=== PATIENT | male | born 1940 | race Caucasian/White ===

== ENCOUNTER → 2016-07-18 | Outpatient (CLI) | payer OTHER ==
[~2016-07-18] MED LIST: ACET-1257 PO; ASPEC325 PO; ASPI81TA28 PO; BND25X PO; CHOL20009 PO; CRD4 PO; DULO60CA44 PO; FAMO20TA12 PO; FRS/40 PO; GABA1CAP4 PO; INSDGI SC; LIDO1PAD2 TOP; LOSA50TA54 PO; METO-596 PO; MONT1TAB5 PO; NITR0.4S UT; NRN600 PO; NVLGIPEN SC; NXM/40 PO; POTA20TA16 PO; ROSU40TA PO; RXC5 PO; SENN8.6T7 PO; SPR25 PO; TRAM-10 PO; VTMD PO; XRL15 PO; ZRX5 PO
[2016-07-18 14:36] LABS: BASO % 0.3 %; BASO ABS # 0.02 K/uL (0-0.2); COMPLETE YES; EOS % 0.8 %; HEMATOCRIT 37.8 % (42-52); IG% 0.1 %; LYMPH % 34.3 %; LYMPH ABS # 2.42 K/uL (1.2-3.4); MEAN CELL VOLUME 92.9 fL (80-100); MEAN CORPUSCULAR HEMOGLOBIN 30.5 pg (25-34); MEAN CORPUSCULAR HGB CONC 32.8 g/dl (32-36); MEAN PLATELET VOLUME 10.5 fL (7.4-10.4); MONO % 13.3 %; NEUT % 51.2 %; PLATELET COUNT 267 K/uL (130-400); RED BLOOD COUNT 4.07 M/uL (4.7-6.1); WHITE BLOOD COUNT 7.06 K/uL (4.8-10.8)
[2016-07-18 14:55] LABS: BLOOD UREA NITROGEN 15 mg/dl (7-18); BUN/CREATININE RATIO 13.3 (10-20); CARBON DIOXIDE 35 mmol/L (21-32); CHLORIDE 98 mmol/L (98-107); GLUCOSE 67 mg/dl (70-99); POTASSIUM 4.3 mmol/L (3.5-5.1); SODIUM 140 mmol/L (136-145)
== END | disposition home or self-care (01) ==
LOC: C.LAB1850 12:41
PROVIDERS: ATTEND Internal Medicine Cardiovascular Disease
DX: I50.32 Chronic diastolic (congestive) heart failure (principal); I25.10 Atherosclerotic heart disease of native coronary artery without angina pectoris

== ENCOUNTER → 2016-11-02 | Outpatient (CLI) | payer OTHER ==
[~2016-11-02] MED LIST changes: -BND25X PO; +DIPH25CA50 PO
--- NOTE | 2016-11-02 08:36 | DIAGNOSTIC IMAGING REPORT ---
RIGHT FOOT 3 VIEWS CLINICAL HISTORY: Right foot weakness. FINDINGS: 3 views of the right foot are obtained. No prior studies are available for comparison at the time of dictation. The skeletal structures are osteopenic. No fracture is seen. Arthritic change with bony sclerosis is seen at the first metatarsophalangeal joint. A small os naviculari is incidentally noted. There are large dorsal and plantar calcaneal enthesophytes. Degenerative spurring is seen along the dorsal aspect of the tarsal bones. Diffuse soft tissue edema is present in the foot, greatest dorsally. IMPRESSION: 1. Soft tissue swelling with no acute bony abnormality identified in the right foot. 2. Osteopenia with arthritic change and large heel spurs as above. Electronically signed by: Hiram Leal M.D. 11/02/2016 8:34 AM Dictated Date/Time: 11/02/2016 8:33 AM
--- NOTE | 2016-11-02 08:38 | DIAGNOSTIC IMAGING REPORT ---
RIGHT ANKLE 3 VIEWS CLINICAL HISTORY: Right ankle weakness. FINDINGS: 3 views of the right ankle are compared to study dated 06/17/2016. The skeletal structures are osteopenic. No fracture is seen. The ankle mortise is intact. Enthesophytes arise from the medial malleolus. There are large dorsal and plantar heel spurs. Degenerative spurring is seen along the anterior tibial plafond and in the dorsal aspect of the tarsal bones. No large joint effusion is identified. Diffuse soft tissue edema is present around the ankle. Atherosclerotic calcification is noted in the regional arteries. IMPRESSION: 1. Diffuse soft tissue edema with no acute bony abnormality seen. 2. Osteopenia, degenerative change, and heel spurs as above. Electronically signed by: Hiram Leal M.D. 11/02/2016 8:36 AM Dictated Date/Time: 11/02/2016 8:35 AM
== END | disposition home or self-care (01) ==
LOC: C.RAD1850 08:16
PROVIDERS: ATTEND Nurse Practitioner
DX: M62.81 Muscle weakness (generalized) (principal); M21.41 Flat foot [pes planus] (acquired), right foot

== ENCOUNTER → 2016-12-09 | Outpatient (CLI) | payer OTHER ==
[2016-12-09 13:11] LABS: ESTIMATED AVERAGE GLUCOSE 240 mg/dl; HA1C FLAG Normal (Normal)
[2016-12-09 14:04] LABS: ALKALINE PHOSPHATASE 67 U/L (45-117); ALT/SGPT 20 U/L (12-78); AST/SGOT 11 U/L (15-37); BLOOD UREA NITROGEN 32 mg/dl (7-18); BUN/CREATININE RATIO 23.1 (10-20); CALCIUM 9.3 mg/dl (8.5-10.1); CARBON DIOXIDE 31 mmol/L (21-32); CHLORIDE 97 mmol/L (98-107); GLUCOSE 396 mg/dl (70-99); POTASSIUM 4.6 mmol/L (3.5-5.1); SODIUM 136 mmol/L (136-145)
[2016-12-09 14:40] LABS: BETA-HYDROXYBUTYRATE 1.71 mg/dL (0.2-2.81)
== END | disposition home or self-care (01) ==
LOC: C.LABBFT 09:33
PROVIDERS: ATTEND Internal Medicine
DX: E11.65 Type 2 diabetes mellitus with hyperglycemia (principal); E11.22 Type 2 diabetes mellitus with diabetic chronic kidney disease; N18.3 Chronic kidney disease, stage 3 (moderate); E55.9 Vitamin D deficiency, unspecified; I50.32 Chronic diastolic (congestive) heart failure

== ENCOUNTER → 2017-02-23 | Outpatient (CLI) | payer OTHER ==
[~2017-02-23] MED LIST changes: +BND25X PO; -DIPH25CA50 PO
[2017-02-23 12:17] LABS: HEMATOCRIT 44.9 % (42-52); MEAN CELL VOLUME 97.4 fL (80-100); MEAN CORPUSCULAR HEMOGLOBIN 32.1 pg (25-34); MEAN PLATELET VOLUME 11.6 fL (7.4-10.4); PLATELET COUNT 192 K/uL (130-400); RED BLOOD COUNT 4.61 M/uL (4.7-6.1); WHITE BLOOD COUNT 11.01 K/uL (4.8-10.8)
[2017-02-23 12:41] LABS: ALT/SGPT 23 U/L (12-78); AST/SGOT 15 U/L (15-37); BLOOD UREA NITROGEN 29 mg/dl (7-18); BUN/CREATININE RATIO 21.9 (10-20); CALCIUM 9.2 mg/dl (8.5-10.1); CARBON DIOXIDE 32 mmol/L (21-32); CHLORIDE 100 mmol/L (98-107); CHOLESTEROL 141 mg/dl (0-200); GLUCOSE 242 mg/dl (70-99); POTASSIUM 4.7 mmol/L (3.5-5.1); SODIUM 136 mmol/L (136-145); TRIGLYCERIDES 472 mg/dl (0-150)
[2017-02-23 12:44] LABS: CHOLESTEROL/HDL RATIO 4.5; HDL CHOLESTEROL 31 mg/dl
== END | disposition home or self-care (01) ==
LOC: C.LABBFT 08:51
PROVIDERS: ATTEND Internal Medicine Cardiovascular Disease
DX: E78.5 Hyperlipidemia, unspecified (principal); I10 Essential (primary) hypertension; I25.10 Atherosclerotic heart disease of native coronary artery without angina pectoris; I50.32 Chronic diastolic (congestive) heart failure

== ENCOUNTER 2017-03-05 12:02 | Emergency (ER) | payer OTHER ==
[~2017-03-05] VITALS: Ht 180.3 cm; Wt 128.7 kg
[~2017-03-05 12:02] MED LIST changes: -ASPI81TA28 PO; -CHOL20009 PO; -CRD4 PO; -NRN600 PO; -SPR25 PO; -TRAM-10 PO; -XRL15 PO; -ZRX5 PO
[2017-03-05 12:05] VITALS: TEMP 36.3; Ht 180.3 cm; Wt 128.7 kg
[2017-03-05] MEDS ORDERED: ZRX5 PO (12:55)
[2017-03-05] MEDS ORDERED: CHOL20009 PO (12:55)
[2017-03-05] MEDS ORDERED: XRL15 PO (12:55)
[2017-03-05] MEDS ORDERED: CRD4 PO (12:55)
[2017-03-05] MEDS ORDERED: ASPI81TA28 PO (12:55)
[2017-03-05] MEDS ORDERED: NRN600 PO (12:55)
[2017-03-05] MEDS ORDERED: INSDGI SC (12:55)
[2017-03-05] MEDS ORDERED: TRAM-10 PO (12:55)
[2017-03-05] MEDS ORDERED: SPR25 PO (12:55)
--- NOTE | 2017-03-05 13:00 | EMERGENCY ROOM VISIT NOTE ---
History Report prepared by Camilo: Chelsey Carrasco Under the Supervision of: Dr. Ryan Perez M.D. 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 The patient's family states that he has had multiple episodes of falls lately and today he tripped and is having severe pain. She reports that the patient had a knee replacement previously and fell onto the same knee today and is having pain there. She notes that he has a history of sciatica and had back surgery in June. The family states that the patient does take Tramadol for his pain but it has not been this bad before and they note that his gait has been affected by his pain. The patient complains of right hip pain that is not new and knee pain. He denies any LOC, headache, and neck pain. The family states that the patient has a walker and a cane but usually uses the cane over the walker. The patient states that he tripped over a board today and fell. He notes that he hit his head but did not lose consciousness and was able to crawl into the house. The patient states that he was on Solu-Medrol for his sciatica and was feeling much better but it has been worse since he stopped taking the medication. He states that he takes Aspirin every day. 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 Review of Systems See HPI for pertinent positives & negatives. A total of 10 systems reviewed and were otherwise negative. Past Medical & Surgical Medical Problems: (1) Bradycardia (2) Diabetes (3) Diabetic foot ulcer (4) Diabetic peripheral neuropathy associated with type 2 diabetes mellitus (5) Dysesthesia (6) Edema (7) Heart disease (8) itactable LBP (9) Kidney disease (10) Loss of sensation (11) Lumbar radiculopathy, acute (12) Lumbar stenosis with neurogenic claudication Surgical Problems: (1) History of heart artery stent (2) Hx of angioplasty (3) Hx of CABG (4) Hx of cholecystectomy Family History Diabetes mellitus FHx: gallbladder disease FHx: heart disease Hypertension Kidney disease Kidney stones Social History Smoking Status: Former Smoker Marital Status: Housing Status: lives with family Occupation Status: retired Current/Historical Medications Scheduled Aspirin (Aspirin Ec), 81 MG PO QAM Cholecalciferol (Vitamin D), 2,000 UNITS PO DAILY Doxazosin Mesylate (Doxazosin Mesylate), 4 MG PO HS Duloxetine Hcl (Cymbalta), 60 MG PO QAM Esomeprazole Magnesium (Nexium), 40 MG PO QAM Furosemide (Lasix), 160 MG PO QAM Gabapentin (Gabapentin), 1,800 MG PO BID Insulin Aspart (Novolog Flexpen), 10 UNITS SC AC Insulin Glargine (Lantus), 120 UNITS SC BID Losartan Potassium (Cozaar), 50 MG PO QAM Metoprolol Tartrate (Lopressor), 50 MG PO BID Montelukast Sodium (Montelukast Sodium), 10 MG PO QAM Nitroglycerin (Nitrostat), 0.4 MG UT PRN Potassium Ext Rel (Klor-Con), 40 MEQ PO BID Rivaroxaban (Xarelto), 15 MG PO DAILY Rosuvastatin Calcium (Crestor), 40 MG PO DAILY Spironolactone (Spironolactone), 25 MG PO BID Scheduled PRN Acetaminophen (Tylenol Extra Strength), 1,000 MG PO Q8H PRN for Pain score 1-3 Diphenhydramine HCl (Diphenhydramine HCl), 25 MG PO Q6H PRN for Allergic rhinitis/insomnia Famotidine (Famotidine), 20 MG PO Q12 PRN for Dyspepsia Lidocaine (Lidocaine), 1 PATCH TOP QAM PRN for Pain Metolazone (Metolazone), 5 MG PO DAILY PRN for Oxycodone HCl (Oxycodone HCl), 5-10 MG PO Q4H PRN for Moderate - severe pain Tramadol (Ultram), 50 MG PO Q8H PRN for Pain Allergies Coded Allergies: NO KNOWN DRUG ALLERGIES (Verified Allergy, Unknown, NKDA, 03/05/17) Physical Exam Vital Signs Date Time Temp Pulse Resp B/P (MAP) Pulse Ox O2 Delivery O2 Flow Rate FiO2 03/05/17 14:20 93 20 121/69 93 Room Air 03/05/17 12:05 36.3 83 20 97/46 95 Room Air Physical Exam GENERAL: Patient is a healthy-appearing well-nourished male, walking with a walker HEAD: Normocephalic atraumatic EYES: Ocular movements intact pupils equal and react to light OROPHARYNX mucous membranes are moist no exudates present no erythema or edema present NECK: Supple no nuchal rigidity, no midline neck tenderness. CHEST: Good equal expansion LUNGS: Clear and equal to auscultation CARDIAC: Normal S1 and S2 ABDOMEN: Soft nontender no guarding BACK: No CVA tenderness, no midline tenderness to the lower spine. EXTREMITIES: No pain upon palpation normal muscle strength in all groups no clubbing cyanosis or edema, good range of motion of left ankle, knee, hip. NEURO: Patient is following commands and answering questions appropriately. Alert and oriented x3 Cranial Nerves 2-12 grossly intact Medical Decision & Procedures ER Provider Diagnostic Interpretation: Radiology results as stated below per my review and radiologist interpretation: PELVIS 1 OR 2 VIEW ROUTINE, LEFT FEMUR 2 VIEWS ROUTINE FINDINGS: PELVIS AND BILATERAL HIPS: The bony pelvis appears intact without acute fracture or dislocation. Moderate degenerative changes involve the bilateral femoral acetabular joints. Vascular calcifications are noted. Image bilateral femora appear intact. Fusion hardware with prior discectomy changes noted at L3-S1. Bones are mildly demineralized. LEFT FEMUR: Moderate femoral acetabular degenerative changes are present. The bones are mildly demineralized. Left total knee joint arthroplasty hardware appears intact. There appears to be a small joint effusion about the knee. 1.8 cm ossification within the region of the distal patellar tendon is noted suggesting a remote patellar tendon injury. No acute fracture or dislocation. IMPRESSION: 1. No acute fracture or dislocation identified involving the pelvis or left femur. 2. Moderate degenerative changes involve the bilateral hips with mild background bone demineralization. 3. Small knee joint effusion. The above report was generated using voice recognition software. It may contain grammatical, syntax or spelling errors. Electronically signed by: Jan Santos M.D. 03/05/2017 1:20 PM Dictated Date/Time: 03/05/2017 1:16 PM L-SPINE MIN 4 VIEWS ROUTINE FINDINGS: Cholecystectomy clips are noted. There are vascular calcifications present. 5 mm linear calcification overlying the inferior pole right kidney suggests nephrolithiasis. There are 5 nonrib-bearing lumbar type vertebral segments. Prior posterior decompression with discectomy and interbody dylan and screw fusion is seen at L4-S1. There is no evidence of hardware complication or malalignment. Multilevel endplate spurring and facet arthropathy is present. Intervertebral disc space narrowing is seen posteriorly at L3-L4. IMPRESSION: 1. No acute fracture or subluxation of the lumbar spine. 2. Prior posterior decompression with discectomy and interbody dylan and screw fusion at L4-S1. 3. Multilevel endplate spurring and facet arthropathy with posterior intervertebral disc space narrowing at L3-L4. 4. Probable right nephrolithiasis. The above report was generated using voice recognition software. It may contain grammatical, syntax or spelling errors. Electronically signed by: Jan Santos M.D. 03/05/2017 1:24 PM Dictated Date/Time: 03/05/2017 1:20 PM ED Course 1215: Past medical records reviewed. The patient was evaluated in room C12. A complete history and physical examination was performed. 1359: I reevaluated and updated the patient on his results. I recommended he follow up with an orthopedic doctor. 1406: Upon reexamination the patient is doing well. I discussed results and treatment plan with the patient. He verbalizes agreement and understanding. The patient is ready for discharge. Medical Decision Differential diagnosis: Etiologies such as fracture, dislocation, neurovascular compromise, compartment syndrome, soft tissue injury, as well as others were entertained. This is a 76-year-old male who presents emergency department complaining of left hip pain since a fall at home on Monday. The patient has been using his walker to get around. He has good range of motion of the hip knee as well as the ankle. The patient was sent for x-rays. He does have a history of spinal fusion. The patient does have a small knee effusion and I believe that this could be the source of his pain. In addition he also has arthritis in the hip. I offered pain medication to the patient however he is refusing. I do feel that the patient should continue use his walker and needs follow-up with orthopedics. Medication Reconcilliation Current Medication List: was personally reviewed by me Blood Pressure Screening Patient's blood pressure: Normal blood pressure Blood pressure disposition: Did not require urgent referral Impression Primary Impression: Hip pain Scribe Attestation The scribe's documentation has been prepared under my direction and personally reviewed by me in its entirety. I confirm that the note above accurately reflects all work, treatment, procedures, and medical decision making performed by me. Departure Information Dispostion Home / Self-Care Referrals Humza Aguilera M.D. (PCP) Forms HOME CARE DOCUMENTATION FORM, IMPORTANT VISIT INFORMATION Patient Instructions ED Effusion Knee, Exercises Leg Knee Hip Pulls, Hip Osteoarthritis, Hip Precautions, My [facility] Additional Instructions Follow up with Dr Fowler's office Take 1000 mg Tylenol every 6 hours Take Tramadol for breakthrough pain You have been examined and treated today on an emergency basis only. This is not a substitute for, or an effort to provide, complete comprehensive medical care. It is impossible to recognize and treat all injuries or illnesses in a single emergency department visit. It is therefore important that you follow up closely with Dr Aguilera. Call as soon as possible for an appointment. Thank you for your time and consideration. I look forward to speaking with you again soon. Please don't hesitate to call us if you have any questions. Problem Qualifiers Primary Impression: Hip pain Laterality: left Qualified Codes: M25.552 - Pain in left hip
--- NOTE | 2017-03-05 13:22 | DIAGNOSTIC IMAGING REPORT ---
PELVIS 1 OR 2 VIEW ROUTINE, LEFT FEMUR 2 VIEWS ROUTINE HISTORY: 76 years-old Male Pt c/o left hip pain acute pain without reported trauma. COMPARISON: Pelvis and right hip radiographs 06/17/2016 TECHNIQUE: AP view of the pelvis with frontal views of the bilateral hips. 5 views of the left femur also obtained. FINDINGS: PELVIS AND BILATERAL HIPS: The bony pelvis appears intact without acute fracture or dislocation. Moderate degenerative changes involve the bilateral femoral acetabular joints. Vascular calcifications are noted. Image bilateral femora appear intact. Fusion hardware with prior discectomy changes noted at L3-S1. Bones are mildly demineralized. LEFT FEMUR: Moderate femoral acetabular degenerative changes are present. The bones are mildly demineralized. Left total knee joint arthroplasty hardware appears intact. There appears to be a small joint effusion about the knee. 1.8 cm ossification within the region of the distal patellar tendon is noted suggesting a remote patellar tendon injury. No acute fracture or dislocation. IMPRESSION: 1. No acute fracture or dislocation identified involving the pelvis or left femur. 2. Moderate degenerative changes involve the bilateral hips with mild background bone demineralization. 3. Small knee joint effusion. The above report was generated using voice recognition software. It may contain grammatical, syntax or spelling errors. Electronically signed by: Jan Santos M.D. 03/05/2017 1:20 PM Dictated Date/Time: 03/05/2017 1:16 PM
--- NOTE | 2017-03-05 13:25 | DIAGNOSTIC IMAGING REPORT ---
L-SPINE MIN 4 VIEWS ROUTINE HISTORY: 76 years-old Male acute left hip pain without reported trauma. COMPARISON: Pelvis radiographs of same day, lumbar spine spot fluoroscopic images 06/22/2016 TECHNIQUE: 5 views of the lumbar spine. FINDINGS: Cholecystectomy clips are noted. There are vascular calcifications present. 5 mm linear calcification overlying the inferior pole right kidney suggests nephrolithiasis. There are 5 nonrib-bearing lumbar type vertebral segments. Prior posterior decompression with discectomy and interbody dylan and screw fusion is seen at L4-S1. There is no evidence of hardware complication or malalignment. Multilevel endplate spurring and facet arthropathy is present. Intervertebral disc space narrowing is seen posteriorly at L3-L4. IMPRESSION: 1. No acute fracture or subluxation of the lumbar spine. 2. Prior posterior decompression with discectomy and interbody dylan and screw fusion at L4-S1. 3. Multilevel endplate spurring and facet arthropathy with posterior intervertebral disc space narrowing at L3-L4. 4. Probable right nephrolithiasis. The above report was generated using voice recognition software. It may contain grammatical, syntax or spelling errors. Electronically signed by: Jan Santos M.D. 03/05/2017 1:24 PM Dictated Date/Time: 03/05/2017 1:20 PM
[2017-03-05 14:20] VITALS: BP 121/69; PULSE 93; O2SAT 93
== END 2017-03-05 14:36 | disposition home or self-care (01) ==
LOC: C.EDB 12:03 → C.EDC 14:36
DX: M25.552 Pain in left hip (principal); W19.XXXA Unspecified fall, initial encounter; E11.9 Type 2 diabetes mellitus without complications; I51.9 Heart disease, unspecified; Z83.3 Family history of diabetes mellitus; Z82.49 Family history of ischemic heart disease and other diseases of the circulatory system; Z87.891 Personal history of nicotine dependence; Z79.82 Long term (current) use of aspirin; Z79.4 Long term (current) use of insulin

== ENCOUNTER → 2017-05-30 | Outpatient (CLI) | payer OTHER ==
[~2017-05-30] MED LIST changes: -ASPEC325 PO; +ASPI81TA28 PO; -BND25X PO; +CHOL20009 PO; +CRD4 PO; +DIPH25CA50 PO; -GABA1CAP4 PO; +NRN600 PO; -SENN8.6T7 PO; +SPR25 PO; +TRAM-10 PO; -VTMD PO; +XRL15 PO; +ZRX5 PO
[2017-05-30 16:53] LABS: BASO % 0.3 %; BASO ABS # 0.04 K/uL (0-0.2); COMPLETE YES; EOS % 1.1 %; HEMATOCRIT 40.4 % (42-52); IG% 0.4 %; LYMPH % 11.7 %; LYMPH ABS # 1.57 K/uL (1.2-3.4); MEAN CELL VOLUME 100.5 fL (80-100); MEAN CORPUSCULAR HEMOGLOBIN 33.6 pg (25-34); MEAN CORPUSCULAR HGB CONC 33.4 g/dl (32-36); MEAN PLATELET VOLUME 12.2 fL (7.4-10.4); NEUT % 74.5 %; PLATELET COUNT 238 K/uL (130-400); RED BLOOD COUNT 4.02 M/uL (4.7-6.1); WHITE BLOOD COUNT 13.45 K/uL (4.8-10.8)
[2017-05-30 17:50] LABS: BLOOD UREA NITROGEN 30 mg/dl (7-18); BUN/CREATININE RATIO 19.8 (10-20); CALCIUM 8.5 mg/dl (8.5-10.1); CARBON DIOXIDE 31 mmol/L (21-32); CHLORIDE 96 mmol/L (98-107); CREATININE 1.51 mg/dl (0.60-1.40); GLUCOSE 410 mg/dl (70-99); PHOSPHORUS 2.8 mg/dl (2.5-4.9); POTASSIUM 4.6 mmol/L (3.5-5.1); PROSTATE SPECIFIC ANTIGEN 0.234 ng/ml (0.000-4.000); SODIUM 134 mmol/L (136-145)
[2017-05-30 18:03] LABS: BETA-HYDROXYBUTYRATE 1.84 mg/dL (0.2-2.81)
[2017-05-31 08:02] LABS: ESTIMATED AVERAGE GLUCOSE 246 mg/dl; HA1C FLAG Normal (Normal)
== END | disposition home or self-care (01) ==
LOC: C.LABBFT 14:57
PROVIDERS: ATTEND Physician Assistant Medical
DX: N18.3 Chronic kidney disease, stage 3 (moderate) (principal); E11.49 Type 2 diabetes mellitus with other diabetic neurological complication; E11.22 Type 2 diabetes mellitus with diabetic chronic kidney disease; E55.9 Vitamin D deficiency, unspecified; Z12.5 Encounter for screening for malignant neoplasm of prostate

== ENCOUNTER → 2017-06-13 | Outpatient (CLI) | payer OTHER ==
--- NOTE | 2017-06-13 13:50 | DIAGNOSTIC IMAGING REPORT ---
KUB CLINICAL HISTORY: Acute on chronic low back pain. FINDINGS: 2 AP supine abdominal radiographs are correlated with abdominal CT dated 05/31/2011. There is a nonobstructed abdominal bowel gas pattern. No abnormal abdominal calcifications are identified. Cholecystectomy clips are seen in the right upper quadrant. The skeletal structures are osteopenic. There are postoperative changes from L4 -S1 spinal fusion. Lumbosacral spondylosis is noted. The bony pelvis is grossly intact. IMPRESSION: Nonobstructed abdominal bowel gas pattern. Electronically signed by: Hiram Leal M.D. 06/13/2017 1:49 PM Dictated Date/Time: 06/13/2017 1:48 PM
== END | disposition home or self-care (01) ==
LOC: C.RAD1850 13:24
PROVIDERS: ATTEND Physician Assistant Medical
DX: I25.10 Atherosclerotic heart disease of native coronary artery without angina pectoris (principal); M54.5 Low back pain

== ENCOUNTER → 2017-06-13 | Outpatient (CLI) | payer OTHER ==
[2017-06-13 17:30] LABS: BASO % 0.2 %; BASO ABS # 0.03 K/uL (0-0.2); COMPLETE YES; EOS % 0.9 %; HEMATOCRIT 40.9 % (42-52); IG% 0.3 %; LYMPH % 13.8 %; LYMPH ABS # 2.04 K/uL (1.2-3.4); MEAN CELL VOLUME 101.2 fL (80-100); MEAN CORPUSCULAR HEMOGLOBIN 32.7 pg (25-34); MEAN CORPUSCULAR HGB CONC 32.3 g/dl (32-36); MONO % 10.6 %; NEUT % 74.2 %; PLATELET COUNT 292 K/uL (130-400); RED BLOOD COUNT 4.04 M/uL (4.7-6.1); WHITE BLOOD COUNT 14.77 K/uL (4.8-10.8)
[2017-06-13 17:45] LABS: BLOOD UREA NITROGEN 20 mg/dl (7-18); BUN/CREATININE RATIO 15.5 (10-20); CALCIUM 9.4 mg/dl (8.5-10.1); CARBON DIOXIDE 34 mmol/L (21-32); CHLORIDE 97 mmol/L (98-107); CREATININE 1.32 mg/dl (0.60-1.40); GLUCOSE 177 mg/dl (70-99); POTASSIUM 4.6 mmol/L (3.5-5.1); SODIUM 133 mmol/L (136-145)
[2017-06-13 17:46] LABS: PHOSPHORUS 2.9 mg/dl (2.5-4.9)
== END | disposition home or self-care (01) ==
LOC: C.LABBFT 12:13
PROVIDERS: ATTEND Physician Assistant Medical
DX: N18.3 Chronic kidney disease, stage 3 (moderate) (principal); R39.9 Unspecified symptoms and signs involving the genitourinary system

== ENCOUNTER → 2017-06-16 | Outpatient (CLI) | payer OTHER ==
--- NOTE | 2017-06-16 14:42 | DIAGNOSTIC IMAGING REPORT ---
CT OF THE ABDOMEN AND PELVIS WITHOUT CONTRAST CLINICAL HISTORY: Right flank pain. COMPARISON STUDY: CT of the abdomen and pelvis May 31, 2011. TECHNIQUE: Axial images of the abdomen and pelvis were obtained without IV contrast. Images were reviewed in the axial, sagittal, and coronal planes. A dose lowering technique was utilized adhering to the principles of ALARA. FINDINGS: Images of the lower chest partially visualize a small to moderate right pleural effusion. In addition, there is a round 4.6 cm airspace opacity within the lateral basilar segment of the right lower lobe. No renal, ureteral or bladder calculi are present. There is no hydronephrosis or hydroureter. Evaluation of the remainder of the abdomen and pelvis is suboptimal on this unenhanced exam. Several water attenuation bilateral renal lesions likely reflect cysts. A few hypointense foci within the liver suggest focal fat. The gallbladder is surgically absent. The spleen, adrenal glands and pancreas are unremarkable. There is no evidence for a bowel obstruction. There is sigmoid diverticulosis without evidence for acute diverticulitis. Note is made of subcutaneous fluid of the anterior abdominal wall, greater on the left. This measures above water attenuation. A locule of gas is noted. No suspicious osseous lesions are present. There are postoperative findings within the spine. There is no lymphadenopathy. There is extensive atherosclerotic plaque of the abdominal aorta. IMPRESSION: 1. 4.6 cm round airspace opacity within the right lower lobe, partially imaged on this exam. This favors pneumonia however a neoplasm could appear similar. A follow-up chest CT in one month to ensure resolution is recommended. Associated small to moderate right pleural effusion. 2. Intermediate attenuation subcutaneous fluid of the anterior abdominal wall, greater on the left with a locule of gas. This could be related to injections. The attenuation raises the possibility of a subcutaneous hematoma. 3. No urinary calculi or hydronephrosis. Electronically signed by: Shane Goins M.D. 06/16/2017 2:40 PM Dictated Date/Time: 06/16/2017 2:21 PM
== END | disposition home or self-care (01) ==
LOC: C.CTS 14:06
PROVIDERS: ATTEND Internal Medicine
DX: R10.9 Unspecified abdominal pain (principal); R93.5 Abnormal findings on diagnostic imaging of other abdominal regions, including retroperitoneum; R91.8 Other nonspecific abnormal finding of lung field

== ENCOUNTER → 2017-06-22 | Outpatient (CLI) | payer OTHER ==
[2017-06-22 17:25] LABS: BASO % 0.2 %; BASO ABS # 0.03 K/uL (0-0.2); COMPLETE YES; EOS % 0.8 %; HEMATOCRIT 43.7 % (42-52); IG% 0.6 %; LYMPH % 18.9 %; LYMPH ABS # 2.51 K/uL (1.2-3.4); MEAN CELL VOLUME 98.4 fL (80-100); MEAN CORPUSCULAR HEMOGLOBIN 32.2 pg (25-34); MEAN CORPUSCULAR HGB CONC 32.7 g/dl (32-36); MEAN PLATELET VOLUME 10.6 fL (7.4-10.4); MONO % 10.6 %; NEUT % 68.9 %; PLATELET COUNT 390 K/uL (130-400); RED BLOOD COUNT 4.44 M/uL (4.7-6.1); WHITE BLOOD COUNT 13.26 K/uL (4.8-10.8)
[2017-06-22 17:34] LABS: BLOOD UREA NITROGEN 48 mg/dl (7-18); BUN/CREATININE RATIO 22.7 (10-20); CALCIUM 9.4 mg/dl (8.5-10.1); CARBON DIOXIDE 36 mmol/L (21-32); CHLORIDE 92 mmol/L (98-107); GLUCOSE 132 mg/dl (70-99); PHOSPHORUS 3.5 mg/dl (2.5-4.9); POTASSIUM 4.1 mmol/L (3.5-5.1); SODIUM 131 mmol/L (136-145)
== END | disposition home or self-care (01) ==
LOC: C.LABBFT 15:18
PROVIDERS: ATTEND Physician Assistant Medical
DX: E87.1 Hypo-osmolality and hyponatremia (principal); D72.829 Elevated white blood cell count, unspecified

== ENCOUNTER → 2017-06-27 | Outpatient (CLI) | payer OTHER ==
[2017-06-27 12:33] LABS: BASO % 0.3 %; BASO ABS # 0.04 K/uL (0-0.2); COMPLETE YES; EOS % 1.5 %; HEMATOCRIT 42.8 % (42-52); IG% 0.4 %; LYMPH % 14.6 %; MEAN CELL VOLUME 98.2 fL (80-100); MEAN CORPUSCULAR HEMOGLOBIN 32.1 pg (25-34); MEAN CORPUSCULAR HGB CONC 32.7 g/dl (32-36); MEAN PLATELET VOLUME 10.7 fL (7.4-10.4); MONO % 12.3 %; NEUT % 70.9 %; PLATELET COUNT 343 K/uL (130-400); RED BLOOD COUNT 4.36 M/uL (4.7-6.1); WHITE BLOOD COUNT 12.29 K/uL (4.8-10.8)
[2017-06-27 12:44] LABS: BLOOD UREA NITROGEN 21 mg/dl (7-18); BUN/CREATININE RATIO 15.6 (10-20); CALCIUM 9.3 mg/dl (8.5-10.1); CARBON DIOXIDE 32 mmol/L (21-32); CHLORIDE 94 mmol/L (98-107); CREATININE 1.33 mg/dl (0.60-1.40); GLUCOSE 130 mg/dl (70-99); POTASSIUM 4.4 mmol/L (3.5-5.1); SODIUM 133 mmol/L (136-145)
== END | disposition home or self-care (01) ==
LOC: C.LABBFT 10:25
PROVIDERS: ATTEND Physician Assistant Medical
DX: N18.3 Chronic kidney disease, stage 3 (moderate) (principal)

== ENCOUNTER → 2017-07-05 | Outpatient (CLI) | payer OTHER ==
[~2017-07-05] MED LIST changes: +POTA-639 PO; -POTA20TA16 PO; +SPIR25TA6 PO; -SPR25 PO
[2017-07-05 12:38] LABS: BASO % 0.3 %; BASO ABS # 0.03 K/uL (0-0.2); EOS % 1.2 %; EOS ABS # 0.12 K/uL (0-0.5); HEMATOCRIT 43.5 % (42-52); HEMOGLOBIN 14.4 g/dL (14.0-18.0); IG# 0.04 K/uL (0.00-0.02); LYMPH % 19.4 %; LYMPH ABS # 1.99 K/uL (1.2-3.4); MEAN CORPUSCULAR HEMOGLOBIN 31.8 pg (25-34); MEAN CORPUSCULAR HGB CONC 33.1 g/dl (32-36); MEAN PLATELET VOLUME 11.1 fL (7.4-10.4); MONO % 10.8 %; MONO ABS # 1.11 K/uL (0.11-0.59); NEUT % 67.9 %; NEUT ABS # 6.96 K/uL (1.4-6.5); PLATELET COUNT 267 K/uL (130-400); RED CELL DISTRIBUTION WIDTH CV 13.6 % (11.5-14.5); RED CELL DISTRIBUTION WIDTH SD 47.5 fL (36.4-46.3); WHITE BLOOD COUNT 10.25 K/uL (4.8-10.8)
[2017-07-05 12:51] LABS: BLOOD UREA NITROGEN 19 mg/dl (7-18); CALCIUM 9.2 mg/dl (8.5-10.1); CARBON DIOXIDE 35 mmol/L (21-32); CREATININE 1.39 mg/dl (0.60-1.40); GLUCOSE 233 mg/dl (70-99); POTASSIUM 4.6 mmol/L (3.5-5.1); SODIUM 132 mmol/L (136-145)
== END | disposition home or self-care (01) ==
LOC: C.LABBFT 11:04
PROVIDERS: ATTEND Physician Assistant Medical
DX: E87.1 Hypo-osmolality and hyponatremia (principal)

== ENCOUNTER → 2017-07-07 | Outpatient (CLI) | payer OTHER ==
--- NOTE | 2017-07-07 12:12 | DIAGNOSTIC IMAGING REPORT ---
RENAL ULTRASOUND HISTORY: N28.9 Acute renal [id number] COMPARISON: Abdomen and pelvis CT 06/16/2017. FINDINGS: Right kidney: 12.8 cm. No hydronephrosis. Normal corticomedullary differentiation and cortical thickness. Multiple cysts with the largest measuring 6 cm. Left kidney: 11.9 cm. No hydronephrosis. Normal corticomedullary differentiation and cortical thickness. Multiple cysts with the largest measuring 2.5 cm. Bladder: Mild bladder wall trabeculation. The bilateral ureteral jets are identified. IMPRESSION: 1. No hydronephrosis. 2. Bilateral renal cysts. Electronically signed by: [place] M.D. 07/07/2017 12:11 PM Dictated Date/Time: 07/07/2017 12:10 PM
== END | disposition home or self-care (01) ==
LOC: C.ULTRBC 11:09
PROVIDERS: ATTEND Physician Assistant Medical
DX: N28.1 Cyst of kidney, acquired (principal)

== ENCOUNTER → 2017-07-13 | Outpatient (CLI) | payer OTHER ==
[2017-07-13 13:39] LABS: OSMOLALITY,URINE 461 mOms/kg (500-800)
[2017-07-13 13:42] LABS: SODIUM RANDOM URINE 69 mEq/L
== END | disposition home or self-care (01) ==
LOC: C.LABBFT 09:40
PROVIDERS: ATTEND Physician Assistant Medical
DX: E87.1 Hypo-osmolality and hyponatremia (principal)

== ENCOUNTER → 2017-09-06 | Outpatient (CLI) | payer OTHER ==
[~2017-09-06] MED LIST changes: -POTA-639 PO; +POTA20TA16 PO; -SPIR25TA6 PO; +SPR25 PO
--- NOTE | 2017-09-06 12:54 | DIAGNOSTIC IMAGING REPORT ---
R SHOULDER MIN 2 VIEWS ROUTINE HISTORY: 76 years-old Male M25.511 Pain in joint of right [id number] acute right shoulder pain COMPARISON: Chest radiograph 05/27/2016 TECHNIQUE: 3 views of the right shoulder FINDINGS: Moderate degenerative changes of the acromioclavicular and glenohumeral joints. There is no acute fracture or dislocation identified. Prior median sternotomy. IMPRESSION: Moderate degenerative changes without acute fracture or dislocation. The above report was generated using voice recognition software. It may contain grammatical, syntax or spelling errors. Electronically signed by: Jan Santos M.D. 09/06/2017 12:52 PM Dictated Date/Time: 09/06/2017 12:50 PM
== END | disposition home or self-care (01) ==
LOC: C.RAD1850 12:31
PROVIDERS: ATTEND Physician Assistant Medical
DX: M25.511 Pain in right shoulder (principal); M89.8X1 Other specified disorders of bone, shoulder

== ENCOUNTER → 2017-10-30 | Outpatient (CLI) | payer OTHER ==
[~2017-10-30] MED LIST changes: +POTA-639 PO; -POTA20TA16 PO
[2017-10-30 12:32] LABS: BASO % 0.4 %; BASO ABS # 0.04 K/uL (0-0.2); EOS ABS # 0.11 K/uL (0-0.5); HEMATOCRIT 45.6 % (42-52); HEMOGLOBIN 15.6 g/dL (14.0-18.0); IG# 0.05 K/uL (0.00-0.02); LYMPH % 17.6 %; LYMPH ABS # 1.98 K/uL (1.2-3.4); MEAN CELL VOLUME 95.6 fL (80-100); MEAN CORPUSCULAR HEMOGLOBIN 32.7 pg (25-34); MEAN CORPUSCULAR HGB CONC 34.2 g/dl (32-36); MEAN PLATELET VOLUME 12.4 fL (7.4-10.4); MONO % 11.8 %; MONO ABS # 1.33 K/uL (0.11-0.59); NEUT % 68.8 %; NEUT ABS # 7.74 K/uL (1.4-6.5); PLATELET COUNT 228 K/uL (130-400); RED CELL DISTRIBUTION WIDTH CV 13.7 % (11.5-14.5); RED CELL DISTRIBUTION WIDTH SD 47.6 fL (36.4-46.3); WHITE BLOOD COUNT 11.25 K/uL (4.8-10.8)
[2017-10-30 12:34] LABS: HEMOGLOBIN A1C 11.3 % (4.5-5.6)
[2017-10-30 13:03] LABS: ALBUMIN 3.6 gm/dl (3.4-5.0); ALKALINE PHOSPHATASE 75 U/L (45-117); ALT/SGPT 33 U/L (12-78); AST/SGOT 30 U/L (15-37); BLOOD UREA NITROGEN 21 mg/dl (7-18); CALCIUM 9.1 mg/dl (8.5-10.1); CARBON DIOXIDE 34 mmol/L (21-32); CREATININE 1.26 mg/dl (0.60-1.40); GLUCOSE 155 mg/dl (70-99); POTASSIUM 4.9 mmol/L (3.5-5.1); SODIUM 136 mmol/L (136-145); TOTAL PROTEIN 7.5 gm/dl (6.4-8.2)
== END | disposition home or self-care (01) ==
LOC: C.LABBFT 09:44
PROVIDERS: ATTEND Nurse Practitioner Adult Health
DX: E11.29 Type 2 diabetes mellitus with other diabetic kidney complication (principal); D72.829 Elevated white blood cell count, unspecified; E11.42 Type 2 diabetes mellitus with diabetic polyneuropathy; E55.9 Vitamin D deficiency, unspecified; R20.0 Anesthesia of skin

== ENCOUNTER → 2017-11-02 | Outpatient (CLI) | payer OTHER ==
[~2017-11-02] MED LIST changes: +GADAVIST IV PRN
--- NOTE | 2017-11-02 16:30 | DIAGNOSTIC IMAGING REPORT ---
LUMBAR SPINE COMBINATION HISTORY: Pain. Radiculopathy. LOWER BACK PAIN TECHNIQUE: Multiplanar multisequence MRI of the lumbar spine was performed both before and after the intravenous administration of contrast. COMPARISON: None. FINDINGS: For the purpose of the report the L5-S1 disc space will be located on axial image 27 of 30. Posterior fusion at L4, L5, and S1. Moderate degenerative disc change L3-S1. Moderate disc desiccation throughout the remaining intervertebral discs. No abnormality of bone marrow signal characteristics. L1-L2: No significant central canal or neural foraminal narrowing. L2-L3: Minimal disc bulge. Minimal impact anterior thecal sac. L3-L4: Moderate multifactorial narrowing of the spinal canal. Hypertrophic change posterior elements. Broad-based bulging disc. Mild narrowing of the neuroforamina bilaterally. L4-L5: Posterior laminectomy and fusion. L5-S1: Posterior laminectomy and fusion. IMPRESSION: 1. Moderate multifactorial narrowing of the spinal canal L3-L4. This includes mild/moderate narrowing of the neuroforamina bilaterally. 2. Posterior laminectomy and fusion L4, L5, and S1. 3. Broad-based bulging disc L2-L3. The above report was generated using voice recognition software. It may contain grammatical, syntax or spelling errors. Electronically signed by: Samuel Atkins M.D. 11/02/2017 4:28 PM Dictated Date/Time: 11/02/2017 4:23 PM
== END | disposition home or self-care (01) ==
LOC: C.MRI 14:58
PROVIDERS: ATTEND Internal Medicine
DX: M51.26 Other intervertebral disc displacement, lumbar region (principal)

== ENCOUNTER 2019-08-04 19:56 | Inpatient (IN) ==
[2019-08-04 20:28] LABS: Hematocrit (blood only) 42.1 % (42-52); Hemoglobin 14.1 g/dL (14.0-18.0); Mean Corpuscular Hemoglobin 33.1 pg (25-34); Mean Corpuscular Hgb Conc 33.5 g/dL (32-36); Mean Corpuscular Volume 98.8 fL (80-100); Mean Platelet Volume 11.5 fL (7.4-10.4); Platelet Count 286 K/uL (130-400); RDW Coefficient of Variation 14.1 % (11.5-14.5); RDW Standard Deviation 50.4 fL (36.4-46.3); Red Blood Count 4.26 M/uL (4.7-6.1); White Blood Count 25.58 K/uL (4.8-10.8)
[2019-08-04 20:31] LABS: Base Excess VBG 4.6 mEq/L; Oxygen Saturation VBG 82.2 %; pH VBG 7.4 (7.36-7.41)
[2019-08-04 20:44] LABS: Albumin Level 3.6 gm/dl (3.4-5.0); BUN Creatinine Ratio 15.4 (10-20); Calcium 9.6 mg/dl (8.5-10.1); Est GFR (African American) 50.6; Est GFR (Non-African American) 43.7; Magnesium 1.5 mg/dl (1.8-2.4); Potassium 3.5 mmol/L (3.5-5.1)
[2019-08-04] MEDS ORDERED: PIPERACILL/TAZOBAC CONSULT ACTIVE PRN (20:44)
[2019-08-04] MEDS ORDERED: VANCOMYCIN HCL 2,750 MG in SODIUM CHLORIDE 0.9% 500 ML IV ONE (20:44)
[2019-08-04] MEDS ORDERED: PIPERACILLIN/TAZOBACTAM 4.5 GM/120 ML BAG IV ONE (20:44)
[2019-08-04] MEDS ORDERED: VANCOMYCIN CONSULT ACTIVE PRN (20:44)
[2019-08-04 20:51] LABS: Albumin Globulin Ratio 0.9 (0.9-2); Bilirubin,Total 0.8 mg/dl (0.2-1); Globulin 4.2 gm/dl (2.5-4.0); Phosphorus 2.8 mg/dl (2.5-4.9); Total Protein 7.8 gm/dl (6.4-8.2); Troponin I 0.046 ng/ml (0-0.045)
[2019-08-04 20:55] LABS: INR 1.2 (0.9-1.1); Partial Thromboplastin Ratio 1.1; Partial Thromboplastin Time 31.1 Seconds (21.0-31.0); Prothrombin Time 11.9 Seconds (9.0-12.0)
[2019-08-04] MEDS ORDERED: MAGNESIUM SULFATE / D5W 1 GM/100 ML BAG IV ONE (20:58)
--- NOTE | 2019-08-04 21:02 | XRay Report ---
XR chest 1V portable HISTORY: 78 years-old Male SEPSIS acute sepsis COMPARISON: Chest radiographs 11/06/2018 TECHNIQUE: Portable AP view of the chest FINDINGS: Cardiomegaly. Prior median sternotomy. Unchanged left subclavian pacer/AICD. Pulmonary vascular conge stion with interstitial coarsening. No pneumothorax. Small pleural effusions with infrahilar and biba silar consolidation. Bones appear grossly intact. IMPRESSION: 1. Cardiomegaly with pulmonary edema. 2. Small pleural effusions with infrahilar and bibasilar consolidative opacities. ACT 112: Negative or not required by law. The above report was generated using voice recognition software. It may contain grammatical, syntax o r spelling errors. Electronically signed by: Jan Santos M.D. 08/04/2019 9:00 PM
[2019-08-04 21:13] LABS: Basophils # (auto) 0.03 K/uL (0-0.2); Basophils % (auto) 0.1 %; Immature Granulocytes % (auto) 0.4 %; Lymphocytes # (auto) 0.62 K/uL (1.2-3.4); Lymphocytes % (auto) 2.4 %; Monocytes # (auto) 1.92 K/uL (0.11-0.59); Monocytes % (auto) 7.5 %; Neutrophils # (auto) 22.91 K/uL (1.4-6.5); Neutrophils % (auto) 89.6 %
[2019-08-04] MEDS ORDERED: METOPROLOL TARTRATE 1 MG/ML VIAL IV PRN (21:20)
--- NOTE | 2019-08-04 21:53 | CT Scan Report ---
CT head/brain wo con CLINICAL HISTORY: 78 years-old Male with AMS. Acutely altered mental status TECHNIQUE: Multiple axial CT images of the head were obtained without contrast. A dose lowering tech nique was utilized adhering to the principles of ALARA. CT DOSE: 810.83 mGy.cm COMPARISON: Head CT 05/15/2018 FINDINGS: No acute intracranial hemorrhage, midline shift, intracranial mass, hydrocephalus, territorial ischem ia or abnormal extra-axial collection. Age-related involutional changes. Mild patchy white matter hyp odensities suggest chronic microvascular ischemic disease. Cerebral vascular calcifications are noted . Senescent calcifications of the bilateral lentiform nuclei. Remote fracture of the right frontal bone extends into the right frontal sinus. No acute calvarial fr acture identified. 4.5 x 1.2 cm left occipital scalp hematoma. Prior bilateral lens replacement. The paranasal sinuses, mastoid air cells, and middle ear cavities are clear. IMPRESSION: 1. No acute intracranial abnormality or calvarial fracture. 2. Left occipital scalp hematoma. ACT 112: Negative or not required by law. The above report was generated using voice recognition software. It may contain grammatical, syntax o r spelling errors. Electronically signed by: Jan Santos M.D. 08/04/2019 9:52 PM
--- NOTE | 2019-08-04 23:23 | History & Physical Report ---
Date of Service August 04, 2019 Assessment & Plan (1) Respiratory failure with hypoxia: Acute respiratory failure with hypoxia/bilateral consolidative pneumonia- Continue vancomycin IV and Zosyn IV begun in the ED. Duonebs every 4 hours while awake and every 2 hours when necessary. Pulmicort Respules 0.5 mg inhaled twice daily Guaifenesin extended release 60 mg p.o. twice daily Sputum Gram stain and culture Taper oxygen as symptoms improve Present on Admission?: Yes (2) Bilateral pneumonia: See above Present on Admission?: Yes (3) Confusion: Secondary to acute respiratory process Present on Admission?: Yes (4) CAD (coronary artery disease) of artery bypass graft: CAD/hypertension/elevated troponin- Troponin 0 0.046 upon admission, likely supply demand type II. Follow serial troponins. Continue metoprolol tartrate, Xarelto, spironolactone, losartan with hold parameters. 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 Patient has had decreased oral intake over the past several days. We will hold on long-acting insulin until it is determined how much oral intake he will have. Present on Admission?: Yes History of Present Illness Chief Complaint: The patient presents to the emergency department with increasing confusion over the past few days and worsening cough and shortness of breath. Primary Care Provider: Humza Aguilera MD The patient is a 78-year-old male with past medical history including CAD, hypertension, diabetic nephropathy,, dyslipidemia, diabetes mellitus with retinopathy, peripheral neuropathy, paroxysmal V. tach, PAD, lumbar disc disease, CKD stage III, permanent atrial fibrillation and intracranial hemorrhage. The patient presents to the emergency department with increasing confusion and difficulty breathing. Clinical examination and imaging studies show a bibasilar consolidative pneumonia. Patient was placed on BiPAP the emergency department, and has improved oxygenation and comfort of breathing at this time. Allergies Allergy/AdvReac Type Severity Reaction Status Date / Time No Known Drug Allergies Allergy Unknown NKDA Verified 08/04/19 20:36 Home Medications Home Medications Medication Instructions Recorded Confirmed Type cholecalciferol (vitamin D3) 1,000 unit PO QAM 05/15/18 08/04/19 History montelukast 10 mg PO PM 05/15/18 08/04/19 History spironolactone 25 mg PO BID 05/15/18 08/04/19 History aspirin 81 mg PO QAM 06/04/18 08/04/19 History losartan 25 mg PO DAILY 12/16/18 08/04/19 History docusate sodium 100 mg capsule 100 mg PO BID PRN 01/09/19 08/04/19 History hydrocortisone-pramoxine 2.5 %-1 % 1 appln IN BID PRN #30 gm 01/09/19 08/04/19 Rx rectal cream lidocaine 5 % topical patch 1 patch TOP DAILY #90 ea 01/09/19 08/04/19 Rx pantoprazole 40 mg tablet,delayed 40 mg PO BID #180 tab 02/18/19 08/04/19 Rx release lancets 28 gauge #25 ea 02/25/19 07/08/19 History nitroglycerin 0.4 mg sublingual 0.4 mg SUBLINGUAL Q5M PRN tab 02/25/19 08/04/19 History tablet Novolog U-100 Insulin aspart 100 See Rx Instructions SQ TID #22 03/04/19 08/04/19 Rx unit/mL subcutaneous solution vial NS MDD 240 units Lantus U-100 Insulin 100 unit/mL 120 units SUBCUT BID 90 Days #22 03/07/19 08/04/19 Rx subcutaneous solution vial NS atorvastatin 80 mg tablet 80 mg PO DAILY #90 tab 03/19/19 08/04/19 Rx gabapentin 300 mg capsule 600 mg PO BID #30 cap 03/19/19 08/04/19 Rx duloxetine 60 mg capsule,delayed 60 mg PO DAILY #90 cap 03/29/19 08/04/19 Rx release metolazone 2.5 mg tablet See Rx Instructions .ROUTE 04/11/19 08/04/19 Rx .COMPLEX #90 tablet furosemide 40 mg tablet 40 mg PO DAILY #90 tab 04/24/19 08/04/19 Rx rivaroxaban 15 mg tablet 15 mg PO DAILY #90 tab 05/31/19 08/04/19 Rx blood sugar diagnostic #350 ea 07/05/19 07/08/19 Rx levetiracetam 500 mg tablet 500 mg PO BID #180 tab 07/05/19 08/04/19 Rx fluorouracil 5 % topical cream 1 appln TOP ONCE 28 Days #40 gm 07/08/19 08/04/19 Rx metoprolol tartrate 50 mg tablet 50 mg PO BID #180 tab 07/15/19 08/04/19 Rx Past Med/Surg History Medical History Actinic keratosis (Acute) Adult situational stress disorder (Acute) Anxiety Atrial fibrillation FOLLOWS Teto/ TERESA C4 cervical fracture (Acute) CAD (coronary artery disease) Carotid artery stenosis, asymptomatic (Acute) Chronic kidney disease, stage III (moderate) (Acute) Depression Diabetes (Chronic) Diabetes mellitus IDDM Enlarged prostate without lower urinary tract symptoms (luts) (Acute) External hemorrhoids (Acute) Gait disturbance (Acute) Gastroparesis (Acute) GERD (gastroesophageal reflux disease) Hearing deficit [place] 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 BRAIN BLEED + SKULL/FACIAL FRACTURES. RESOLVED W/O SURGICAL INTERVENTION. [facility] 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 MOORE Insomnia (Acute) Kidney disease (Chronic) FOLLOWS W/ [facility] NEPHRO Leukocytosis (Acute) Lumbar disc disease (Acute) Obesity (BMI 35.0-39.9 without comorbidity) (Acute) Osteoarthritis PAD (peripheral artery disease) (Acute) Paroxysmal ventricular tachycardia (Acute) Peripheral neuropathy (Acute) Poor historian HISTORY OBTAINED FROM [facility] Rheumatoid nodule of left knee (Acute) Sinus bradycardia (Acute) Situational depression (Acute) Sleep apnea REFUSES CPAP/OXYGEN Subdural hematoma (Acute) Syncope (Acute) 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, with long-term current use of insulin (Acute) Uncontrolled type 2 diabetes mellitus with neurologic complication, with long- term current use of insulin (Acute) 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 History of cataract surgery History of cholecystectomy History of heart artery stent History of knee replacement LEFT Hx of CABG 2004. # VESSELS? FOLLOWS W/ SYSTARI S/P ICD (internal cardiac defibrillator) procedure Family History Daughter Family history of reaction to anesthesia PONV Other No significant family history Social History Preferred Language: Icelandic Communication Ability: Effective Bunch Breaker Required: No Beliefs That Will Affect Care: None marital status: Current Living Situation: Spouse Other Information That Helps Us Care for You: No Feels Safe at Home: Yes Safety Concerns: Feels Safe At This Time Smoking Status: Unknown if ever smoked Hx Alcohol Use: No Hx Substance Use: No Review of Systems Review of Systems: Unobtainable due to cognitive status Physical Exam Physical Exam: The patient is awake, alert, normocephalic and atraumatic, lying in bed and in no acute distress. HEENT--PERRL, EOMI, mucous membranes and oropharynx dry. Neck--supple. No JVD. No bruits. Thyroid normal, trachea midline, no adenopathy. Heart--normal S1 and S2. No murmurs, rubs or gallops. Lungs--decreased breath sounds at the bases bilaterally. Mild respiratory distress, no accessory muscle use. Abdomen--normal bowel sounds and soft. Nontender. Nondistended. Extremities--no cyanosis or clubbing. Right lower extremity with 1+ pretibial pitting edema. Left lower extremity with trace pretibial pitting edema. Family reports this asymmetry is chronic Dermatologic--normal skin turgor, normal color, no abnormal lymph nodes, no rash. Neurologic--cranial nerves II through XII grossly intact. Rheumatologic--normal range of motion. Psychiatric--normal affect. Results & Data Vital Signs (Past 12 Hours) Vital Signs Temp Pulse Pulse Resp BP BP Pulse Ox 08/04/19 23:15 104 H 22 121/93 97 08/04/19 22:41 106 H 18 147/63 H 97 08/04/19 22:14 105 H 18 125/80 96 08/04/19 21:06 120 H 16 121/71 93 08/04/19 20:51 97 08/04/19 20:48 96 08/04/19 20:45 123 H 22 96 08/04/19 20:32 111 H 19 122/91 94 08/04/19 20:30 110 H 16 95 08/04/19 20:15 118 H 22 95 08/04/19 20:10 98.1 F 120 H 18 120/81 95 08/04/19 20:06 116 H 22 94 08/04/19 20:03 122 H 30 H 94 08/04/19 20:02 112 H 25 H 120/81 94 Laboratory Results Laboratory Results WBC 25.58 K/uL (4.8-10.8) H 08/04/19 20:04 RBC 4.26 M/uL (4.7-6.1) L 08/04/19 20:04 Hgb 14.1 g/dL (14.0-18.0) 08/04/19 20:04 Hct 42.1 % (42-52) 08/04/19 20:04 MCV 98.8 fL (80-100) 08/04/19 20:04 MCH 33.1 pg (25-34) 08/04/19 20:04 MCHC 33.5 g/dL (32-36) 08/04/19 20:04 RDW Std Deviation 50.4 fL (36.4-46.3) H 08/04/19 20:04 RDW Coeff of Paulo 14.1 % (11.5-14.5) 08/04/19 20:04 Plt Count 286 K/uL (130-400) 08/04/19 20:04 MPV 11.5 fL (7.4-10.4) H 08/04/19 20:04 Immature Gran % (Auto) 0.4 % 08/04/19 20:04 Neut % (Auto) 89.6 % 08/04/19 20:04 Lymph % (Auto) 2.4 % 08/04/19 20:04 [place] % (Auto) 7.5 % 08/04/19 20:04 Eos % (Auto) 0.0 % 08/04/19 20:04 Baso % (Auto) 0.1 % 08/04/19 20:04 Immature Gran # (Auto) 0.10 K/uL (0.00-0.02) H 08/04/19 20:04 Neut # (Auto) 22.91 K/uL (1.4-6.5) H 08/04/19 20:04 Lymph # (Auto) 0.62 K/uL (1.2-3.4) L 08/04/19 20:04 [place] # (Auto) 1.92 K/uL (0.11-0.59) H 08/04/19 20:04 Eos # (Auto) 0.00 K/uL (0-0.5) 08/04/19 20:04 Baso # (Auto) 0.03 K/uL (0-0.2) 08/04/19 20:04 PT 11.9 Seconds (9.0-12.0) 08/04/19 20: INR 1.2 (0.9-1.1) H 08/04/19 20:04 APTT 31.1 Seconds (21.0-31.0) H 08/04/19 20: PTT Ratio 1.1 08/04/19 20:04 VBG pH 7.40 (7.36-7.41) 08/04/19 20:18 VBG pCO2 51 mmHg (38-50) H 08/04/19 20:18 VBG pO2 49 mmHg 08/04/19 20:18 VBG HCO3 31 mmol/L 08/04/19 20:18 VBG O2 Saturation 82.2 % 08/04/19 20:18 VBG Base Excess 4.6 mEq/L 08/04/19 20:18 Barometric Pressure 726.7 mm/Hg 08/04/19 20:18 Sodium 140 mmol/L (136-145) 08/04/19 20:04 Potassium 3.5 mmol/L (3.5-5.1) 08/04/19 20: Chloride 102 mmol/L (98-107) 08/04/19 20:04 Carbon Dioxide 29 mmol/L (21-32) 08/04/19 20:04 Anion Gap 9.0 (3-11) 08/04/19 20:04 BUN 23 mg/dl (7-18) H 08/04/19 20:04 Creatinine 1.50 mg/dl (0.6-1.4) H 08/04/19 20:04 Est Cr Clr Drug Dosing 55.0 ml/min 08/04/19 20:04 Est GFR ( Amer) 50.6 08/04/19 20:04 Est GFR (Non-Af Amer) 43.7 08/04/19 20:04 BUN/Creatinine Ratio 15.4 (10-20) 08/04/19 20:04 Glucose 254 mg/dl (70-99) H 08/04/19 20:04 Lactate 2.0 mmol/L (0.4-2.0) 08/04/19 22:07 Calcium 9.6 mg/dl (8.5-10.1) 08/04/19 20:04 Phosphorus 2.8 mg/dl (2.5-4.9) 08/04/19 20:04 Magnesium 1.5 mg/dl (1.8-2.4) L 08/04/19 20:04 Total Bilirubin 0.8 mg/dl (0.2-1) 08/04/19 20:04 AST 13 U/L (15-37) L 08/04/19 20:04 ALT 15 U/L (12-78) 08/04/19 20:04 Alkaline Phosphatase 75 U/L (45-117) 08/04/19 20:04 Troponin I 0.046 ng/ml (0-0.045) H* 08/04/19 20:04 Total Protein 7.8 gm/dl (6.4-8.2) 08/04/19 20:04 Albumin 3.6 gm/dl (3.4-5.0) 08/04/19 20:04 Globulin 4.2 gm/dl (2.5-4.0) H 08/04/19 20:04 Albumin/Globulin Ratio 0.9 (0.9-2) 08/04/19 20:04 Procalcitonin 0.25 ng/ml (0-0.5) 08/04/19 20:04 Urine Color Yellow 08/05/19 01:05 Urine Appearance Clear (Clear) 08/05/19 01:05 Urine pH 5.0 (4.5-7.5) 08/05/19 01:05 Ur Specific [place] 1.021 (1.000-1.030) 08/05/19 01:05 Urine Protein 2+ (Negative) H 08/05/19 01:05 Urine Glucose (UA) Trace (Negative) H 08/05/19 01:05 Urine Ketones Negative (Negative) 08/05/19 01:05 Urine Blood 1+ (Negative) H 08/05/19 01:05 Urine Nitrite Negative (Negative) 08/05/19 01:05 Urine Bilirubin Negative (Negative) 08/05/19 01:05 Urine Urobilinogen Negative (Negative) 08/05/19 01:05 Ur Leukocyte Esterase Negative (Negative) 08/05/19 01:05 Urine WBC (Auto) 1-5 /hpf (0-5) 08/05/19 01:05 Urine RBC (Auto) 0-4 /hpf (0-4) 08/05/19 01:05 U Hyaline Cast (Auto) 1-5 /lpf (0-5) 08/05/19 01:05 U Epithel Cells (Auto) 5-10 /lpf (0-5) H 08/05/19 01:05 Urine Bacteria (Auto) Negative (Negative) 08/05/19 01:05 Diagnostic Findings [place], [place] [phone] XRay [facility]: [facility] MR#: [id number]: [address] Acct ID:[id number]: Date: 1940ty Zip: [place] [address] Age: 78Location: ED Sex: M Room/Bed: Att Phy:Diagnosis: ALTERED MENTAL STATUS/CARDIAC ASSESSMENT Sandy Phy: Humza Aguilera MDService Date: 08/04/19 Fam Phy:Interpreting Phy: Kana Santos Admit Phy: Ordering Phy: Everton Dunn M.D. cc: ~ XR chest 1V portable HISTORY: 78 years-old Male SEPSIS acute sepsis COMPARISON: Chest radiographs 11/06/2018 TECHNIQUE: Portable AP view of the chest FINDINGS: Cardiomegaly. Prior median sternotomy. Unchanged left subclavian pacer/AICD. Pulmonary vascular congestion with interstitial coarsening. No pneumothorax. Small pleural effusions with infrahilar and bibasilar consolidation. Bones appear grossly intact. IMPRESSION: 1. Cardiomegaly with pulmonary edema. 2. Small pleural effusions with infrahilar and bibasilar consolidative opacities. ACT 112: Negative or not required by law. The above report was generated using voice recognition software. It may contain grammatical, syntax or spelling errors. Electronically signed by: Jan Santos M.D. 08/04/2019 9:00 PM Dictated: 08/04/192058 Transcribed: 08/04/192058 [place], [place] [phone] CT Scan Report Patient: SANDY VELOZ Date: 08/04/19 MR#: [id number]: [address] Acct ID:[id number]: Date: 1940[facility] Zip: [place] [address] Age: 78Location: ED Sex: M Room/Bed: Att Phy:Diagnosis: ALTERED MENTAL STATUS/CARDIAC ASSESSMENT Sandy Phy: Humza Aguilera MDService Date: 08/04/19 Fam Phy:Interpreting Phy: Kana Santos Admit Phy: Ordering Phy: Everton Dunn M.D. cc: ~ CT head/brain wo con CLINICAL HISTORY: 78 years-old Male with AMS. Acutely altered mental status TECHNIQUE: Multiple axial CT images of the head were obtained without contrast. A dose lowering technique was utilized adhering to the principles of ALARA. CT DOSE: 810.83 mGy.cm COMPARISON: Head CT 05/15/2018 FINDINGS: No acute intracranial hemorrhage, midline shift, intracranial mass, hydrocephalus, territorial ischemia or abnormal extra-axial collection. Age- related involutional changes. Mild patchy white matter hypodensities suggest chronic microvascular ischemic disease. Cerebral vascular calcifications are noted. Senescent calcifications of the bilateral lentiform nuclei. Remote fracture of the right frontal bone extends into the right frontal sinus. No acute calvarial fracture identified. 4.5 x 1.2 cm left occipital scalp hematoma. Prior bilateral lens replacement. The paranasal sinuses, mastoid air cells, and middle ear cavities are clear. IMPRESSION: 1. No acute intracranial abnormality or calvarial fracture. 2. Left occipital scalp hematoma. ACT 112: Negative or not required by law. The above report was generated using voice recognition software. It may contain grammatical, syntax or spelling errors. Electronically signed by: Jan Santos M.D. 08/04/2019 9:52 PM Dictated: 08/04/192146 Transcribed: 08/04/192146 Code Status & VTE Plan Code Status DNR/DNI VTE Prophylaxis Plan VTE Prophylaxis will be ordered: Yes PG Care Time/CCT Total # of Minutes Spent Total Time Spent with Patient: Total time spent is greater than 50% in coordination of care (as documented) at patient's floor/unit and/or counseling patient: Coding Level of Care Code 35909 Initial Inpt Care Lvl 3 Diagnoses Respiratory failure with hypoxia J96.91 Chronicity: unspecified Bilateral pneumonia J18.9 Lung location: unspecified part of lung Pneumonia type: due to unspecified organism Confusion R41.0 CAD (coronary artery disease) of artery bypass graft I25.810 Hypertension I10 Dyslipidemia E78.5 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
[2019-08-05] MEDS ORDERED: GLUCOSE 40% GEL 15 GM TUBE PO PRN ×2 (00:20→14:43)
[2019-08-05] MEDS ORDERED: GLUCAGON FOR INJ 1 MG VIAL SQ PRN ×2 (00:20→14:43)
[2019-08-05] MEDS ORDERED: CARBOHYDRATES FOR HYPOGLYCEMIA PO PRN ×2 (00:20→14:43)
[2019-08-05] MEDS ORDERED: DEXTROSE 50% 50 ML SYRINGE IV PRN ×2 (00:20→14:43)
[2019-08-05] MEDS ORDERED: PIPERACILL/TAZOBAC CONSULT ACTIVE PRN (00:20)
[2019-08-05] MEDS ORDERED: GLUCOSE 10 TABS/TUBE PO PRN ×2 (00:20→14:43)
[2019-08-05] MEDS ORDERED: VANCOMYCIN CONSULT ACTIVE PRN (00:20)
[2019-08-05] MEDS ORDERED: ONDANSETRON INJ 2 MG/ML 2 ML VIAL IV PRN (00:20)
--- NOTE | 2019-08-05 00:58 | Emergency Department Note ---
Entered by Ava Martinez acting as a scribe for History of Present Illness General Chief complaint: Altered Mental Status Stated complaint: shortness of breath Time Seen by Provider: 08/04/19 19:59 Source: patient Mode of arrival: EMS History of Present Illness Onset (ago): day(s) 1 Location: chest Pain Consistency: + constant Quality: + other (shortness of breath) Relieved By: + other (supplemental oxygen) Associated symptoms: + confusion, + chest pain and + shortness of breath; no nausea/vomiting Treatments prior to arrival: none The patient is a 78 year old white male w/ PMHx Afib, hypertension, diabetes, and sleep apnea who presents to the ED w/ CC of altered mental status and shortness of breath beginning earlier today. The patient states that he could not remember what happened, and he believes he fell asleep on the floor. The patient complains of shortness of breath and chest pain today. He states that the chest pain has resolved. He denies nausea and vomiting. The patient is on Xarelto and has a history of diabetes. Home Medications Home Medications Medication Instructions Recorded Confirmed Type cholecalciferol (vitamin D3) 1,000 unit PO QAM 05/15/18 08/04/19 History montelukast 10 mg PO PM 05/15/18 08/04/19 History spironolactone 25 mg PO BID 05/15/18 08/04/19 History aspirin 81 mg PO QAM 06/04/18 08/04/19 History losartan 25 mg PO DAILY 12/16/18 08/04/19 History docusate sodium 100 mg capsule 100 mg PO BID PRN 01/09/19 08/04/19 History hydrocortisone-pramoxine 2.5 %-1 % 1 appln NE BID PRN #30 gm 01/09/19 08/04/19 Rx rectal cream lidocaine 5 % topical patch 1 patch TOP DAILY #90 ea 01/09/19 08/04/19 Rx pantoprazole 40 mg tablet,delayed 40 mg PO BID #180 tab 02/18/19 08/04/19 Rx release lancets 28 gauge #25 ea 02/25/19 07/08/19 History nitroglycerin 0.4 mg sublingual 0.4 mg SUBLINGUAL Q5M PRN tab 02/25/19 08/04/19 History tablet Novolog U-100 Insulin aspart 100 See Rx Instructions SQ TID #22 03/04/19 08/04/19 Rx unit/mL subcutaneous solution vial NS MDD 240 units Lantus U-100 Insulin 100 unit/mL 120 units SUBCUT BID 90 Days #22 03/07/19 08/04/19 Rx subcutaneous solution vial NS atorvastatin 80 mg tablet 80 mg PO DAILY #90 tab 03/19/19 08/04/19 Rx gabapentin 300 mg capsule 600 mg PO BID #30 cap 03/19/19 08/04/19 Rx duloxetine 60 mg capsule,delayed 60 mg PO DAILY #90 cap 03/29/19 08/04/19 Rx release metolazone 2.5 mg tablet See Rx Instructions .ROUTE 04/11/19 08/04/19 Rx .COMPLEX #90 tablet furosemide 40 mg tablet 40 mg PO DAILY #90 tab 04/24/19 08/04/19 Rx rivaroxaban 15 mg tablet 15 mg PO DAILY #90 tab 05/31/19 08/04/19 Rx blood sugar diagnostic #350 ea 07/05/19 07/08/19 Rx levetiracetam 500 mg tablet 500 mg PO BID #180 tab 07/05/19 08/04/19 Rx fluorouracil 5 % topical cream 1 appln TOP ONCE 28 Days #40 gm 07/08/19 08/04/19 Rx metoprolol tartrate 50 mg tablet 50 mg PO BID #180 tab 07/15/19 08/04/19 Rx Allergies Allergy/AdvReac Type Severity Reaction Status Date / Time No Known Drug Allergies Allergy Unknown NKDA Verified 08/04/19 20:36 Past Med/Surg History Medical History Actinic keratosis (Acute) Adult situational stress disorder (Acute) Anxiety Atrial fibrillation FOLLOWS W/ [place] C4 cervical fracture (Acute) CAD (coronary artery disease) Carotid artery stenosis, asymptomatic (Acute) Chronic kidney disease, stage III (moderate) (Acute) Depression Diabetes (Chronic) Diabetes mellitus IDDM Enlarged prostate without lower urinary tract symptoms (luts) (Acute) External hemorrhoids (Acute) Gait disturbance (Acute) Gastroparesis (Acute) GERD (gastroesophageal reflux disease) Hearing deficit [place] 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 BRAIN BLEED + SKULL/FACIAL FRACTURES. RESOLVED W/O SURGICAL INTERVENTION. [facility] ER --> SUMMER BOND BY AIR. 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 MOORE Insomnia (Acute) Kidney disease (Chronic) FOLLOWS W/ [facility] Leukocytosis (Acute) Lumbar disc disease (Acute) Obesity (BMI 35.0-39.9 without comorbidity) (Acute) Osteoarthritis PAD (peripheral artery disease) (Acute) Paroxysmal ventricular tachycardia (Acute) Peripheral neuropathy (Acute) Poor historian HISTORY OBTAINED FROM [facility] - [facility] Rheumatoid nodule of left knee (Acute) Sinus bradycardia (Acute) Situational depression (Acute) Sleep apnea REFUSES CPAP/OXYGEN Subdural hematoma (Acute) Syncope (Acute) 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, with long-term current use of insulin (Acute) Uncontrolled type 2 diabetes mellitus with neurologic complication, with long- term current use of insulin (Acute) 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 History of cataract surgery History of cholecystectomy History of heart artery stent History of knee replacement LEFT Hx of CABG 2004. # VESSELS? FOLLOWS W/ [place] S/P ICD (internal cardiac defibrillator) procedure Family History Daughter Family history of reaction to anesthesia PONV Other No significant family history Social History Preferred Language: Swiss Communication Ability: Effective Park Guide Required: No Beliefs That Will Affect Care: None marital status: Current Living Situation: Spouse Other Information That Helps Us Care for You: No Feels Safe at Home: Yes Safety Concerns: Feels Safe At This Time Smoking Status: Unknown if ever smoked Hx Alcohol Use: No Hx Substance Use: No Review of Systems See HPI for pertinent positives & negatives. and A total of 10 systems reviewed and were otherwise negative Physical Exam Vital Signs Vital Signs - 24 hr 08/04/19 20:02 08/04/19 20:03 08/04/19 20:06 Temperature Temperature Source Pulse Rate 112 H 122 H 116 H Pulse Rate [Apical] Pulse Rate from SpO2 Sensor 128 H 123 H Pulse Rhythm Pulse Rhythm [Apical] Pulse Strength [Apical] Respiratory Rate 25 H 30 H 22 Respiratory Effort / Characteristics Spontaneous Short of Breath Respiratory Depth Normal Respiratory Pattern Tachypnea Blood Pressure 120/81 Blood Pressure [Right Arm] Blood Pressure Mean 86 Blood Pressure Mean [Right Arm] Pulse Oximetry 94 94 94 Oxygen Delivery Method Fraction of Inspired Oxygen 100 SaO2/FiO2 Ratio Sepsis Recent Fever Within 48 Hours Sepsis New/Unexplained Change in Mental Status Sepsis Action Taken by Nursing 08/04/19 20:10 08/04/19 20:15 08/04/19 20:30 Temperature 36.7 C Temperature Source Oral Pulse Rate 120 H 118 H 110 H Pulse Rate [Apical] Pulse Rate from SpO2 Sensor 118 H 113 H Pulse Rhythm Irregular Pulse Rhythm [Apical] Pulse Strength [Apical] Respiratory Rate 18 22 16 Respiratory Effort / Characteristics Non-Labored Spontaneous Respiratory Depth Shallow Respiratory Pattern Regular Blood Pressure 120/81 Blood Pressure [Right Arm] Blood Pressure Mean 94 Blood Pressure Mean [Right Arm] Pulse Oximetry 95 95 95 Oxygen Delivery Method BiPAP Fraction of Inspired Oxygen 100 SaO2/FiO2 Ratio 95 Sepsis Recent Fever Within 48 Hours No Sepsis New/Unexplained Change in Mental Status No Sepsis Action Taken by Nursing No Action Required 08/04/19 20:32 08/04/19 20:45 08/04/19 20:48 Temperature Temperature Source Pulse Rate 111 H 123 H Pulse Rate [Apical] Pulse Rate from SpO2 Sensor 81 121 H Pulse Rhythm Pulse Rhythm [Apical] Pulse Strength [Apical] Respiratory Rate 19 22 Respiratory Effort / Characteristics Respiratory Depth Respiratory Pattern Blood Pressure 122/91 Blood Pressure [Right Arm] Blood Pressure Mean 104 Blood Pressure Mean [Right Arm] Pulse Oximetry 94 96 96 Oxygen Delivery Method BiPAP Fraction of Inspired Oxygen 100 SaO2/FiO2 Ratio 96 Sepsis Recent Fever Within 48 Hours Sepsis New/Unexplained Change in Mental Status Sepsis Action Taken by Nursing 08/04/19 20:51 08/04/19 21:06 08/04/19 22:14 Temperature Temperature Source Pulse Rate Pulse Rate [Apical] 120 H 105 H Pulse Rate from SpO2 Sensor Pulse Rhythm Pulse Rhythm [Apical] Irregular Pulse Strength [Apical] Absent Respiratory Rate 16 18 Respiratory Effort / Characteristics Non-Labored Spontaneous Non-Labored Spontaneous Respiratory Depth Normal Normal Respiratory Pattern Agonal Regular Blood Pressure Blood Pressure [Right Arm] 121/71 125/80 Blood Pressure Mean Blood Pressure Mean [Right Arm] 87 95 Pulse Oximetry 97 93 96 Oxygen Delivery Method BiPAP BiPAP Fraction of Inspired Oxygen 90 100 100 SaO2/FiO2 Ratio 93 96 Sepsis Recent Fever Within 48 Hours Sepsis New/Unexplained Change in Mental Status Sepsis Action Taken by Nursing 08/04/19 22:41 08/04/19 23:15 Temperature Temperature Source Pulse Rate Pulse Rate [Apical] 106 H 104 H Pulse Rate from SpO2 Sensor Pulse Rhythm Pulse Rhythm [Apical] Irregular Pulse Strength [Apical] Respiratory Rate 18 22 Respiratory Effort / Characteristics Respiratory Depth Normal Respiratory Pattern Blood Pressure Blood Pressure [Right Arm] 147/63 H 121/93 Blood Pressure Mean Blood Pressure Mean [Right Arm] 91 102 Pulse Oximetry 97 97 Oxygen Delivery Method BiPAP BiPAP Fraction of Inspired Oxygen 100 SaO2/FiO2 Ratio 97 Sepsis Recent Fever Within 48 Hours Sepsis New/Unexplained Change in Mental Status Sepsis Action Taken by Nursing GENERAL: Easily aroused, answers questions appropriately, follows basic commands., NAD, non-toxic. EYE EXAM: Normal conjunctiva. PERRL, no anisocoria and EOM's grossly intact w/o pain. OROPHARYNX: Moist mucous membranes. Grossly normal dentition. NECK: Supple, no nuchal rigidity, no adenopathy, non-tender. No signs of meningismus. Chest: Midline sternotomy scar, device in left chest. LUNGS: Crackles at the bases. On Bipap. Normal chest wall mechanics. HEART: Device in left chest. Midline sternotomy scar. NSR, no MRG. ABDOMEN: Abdomen soft, non-tender, normo-active bowel sounds, no masses, no rebound or guarding. BACK: No CVA TTP. SKIN: No rashes and no bruising. UPPER EXTREMITIES: Upper extremities are grossly normal. LOWER EXTREMITIES: Right greater than left lower extremity swelling. No calf pain. NEURO EXAM: Easily arousable, follows basic commands and will answer questions appropriately. Course Course 2006: Past medical records reviewed. The patient was evaluated in room B11B. A complete history and physical exam was performed. 2118: The patients heart rate has improved. 2129: I updated the patient's family on his condition and answered their questions. 2035: I spoke to Dr. Turpin, [facility] hospitalist, who agreed to take over care of the patient. The patient and family understand the treatment plan and the patient is agreeable to staying in the hospital. The patient will stay for further evaluation. Administered Medications Discontinued Medications Vancomycin HCl 2,750 mg/ (Sodium Chloride) 555 mls @ 200 mls/hr IV NOW ONE Stop: 08/04/19 23:30 Last Admin: 08/04/19 22:11 Dose: 200 mls/hr Documented by: [id number] Piperacillin Sod/Tazobactam Sod (Zosyn) 4.5 gm in 120 mls @ 240 mls/hr IV NOW ONE Stop: 08/04/19 21:13 Last Infusion: 08/04/19 22:09 Dose: 0 mls/hr Documented by: [id number] Admin: 08/04/19 20:53 Dose: 240 mls/hr Documented by: [id number] Magnesium Sulfate/Dextrose (Magnesium Sulfate / D5w) 1 gm in 100 mls @ 100 mls/hr IV ONE ONE Stop: 08/04/19 21:57 Last Infusion: 08/04/19 22:09 Dose: 0 mls/hr Documented by: [id number] Admin: 08/04/19 21:20 Dose: 100 mls/hr Documented by: [id number] Critical Care Time Critical Care Time: Yes Total Critical Care Time: 70 I have personally spent 70 minutes of critical care time in the direct manage ment of this patient. This includes bedside care, interpretation of diagnostic studies, and testing, discussion with consultants, patient, and family members, and other required patient management activities. This 70 minutes is in excess of all separately billable procedures. Medical Decision Making Differential Diagnosis Differential diagnosis includes: infections, reactive airway disease, pneumonia, pneumothorax, COPD, CHF, cardiac ischemia, pulmonary embolism, musculoskeletal, gastrointestinal, as well as others were entertained. Medical Records Attestation: I reviewed the patient's medical records. Home Medications Current Medication List: was personally reviewed by me Laboratory Data Attestation: I reviewed the patient's lab results. Result diagrams: 08/04/19 20:04 08/04/19 20:04 Lab Results 08/04/19 08/04/19 08/04/19 Range/Units 20:04 20:04 20:04 WBC 25.58 H (4.8-10.8) K/uL RBC 4.26 L (4.7-6.1) M/uL Hgb 14.1 (14.0-18.0) g/dL Hct 42.1 (42-52) % MCV 98.8 (80-100) fL MCH 33.1 (25-34) pg MCHC 33.5 (32-36) g/dL RDW Std Deviation 50.4 H (36.4-46.3) fL RDW Coeff of Paulo 14.1 (11.5-14.5) % Plt Count 286 (130-400) K/uL MPV 11.5 H (7.4-10.4) fL Immature Gran % (Auto) 0.4 % Neut % (Auto) 89.6 % Lymph % (Auto) 2.4 % Frio % (Auto) 7.5 % Eos % (Auto) 0.0 % Baso % (Auto) 0.1 % Immature Gran # (Auto) 0.10 H (0.00-0.02) K/uL Neut # (Auto) 22.91 H (1.4-6.5) K/uL Lymph # (Auto) 0.62 L (1.2-3.4) K/uL Frio # (Auto) 1.92 H (0.11-0.59) K/uL Eos # (Auto) 0.00 (0-0.5) K/uL Baso # (Auto) 0.03 (0-0.2) K/uL PT 11.9 (9.0-12.0) Seconds INR 1.2 H (0.9-1.1) APTT 31.1 H (21.0-31.0) Seconds PTT Ratio 1.1 VBG pH (7.36-7.41) VBG pCO2 (38-50) mmHg VBG pO2 mmHg VBG HCO3 mmol/L VBG O2 Saturation % VBG Base Excess mEq/L Barometric Pressure mm/Hg Sodium 140 (136-145) mmol/L Potassium 3.5 (3.5-5.1) mmol/L Chloride 102 (98-107) mmol/L Carbon Dioxide 29 (21-32) mmol/L Anion Gap 9.0 (3-11) BUN 23 H (7-18) mg/dl Creatinine 1.50 H (0.6-1.4) mg/dl Est Cr Clr Drug Dosing 55.0 ml/min Est GFR ( Amer) 50.6 Est GFR (Non-Af Amer) 43.7 BUN/Creatinine Ratio 15.4 (10-20) Glucose 254 H (70-99) mg/dl Lactate (0.4-2.0) mmol/L Calcium 9.6 (8.5-10.1) mg/dl Phosphorus 2.8 (2.5-4.9) mg/dl Magnesium 1.5 L (1.8-2.4) mg/dl Total Bilirubin 0.8 (0.2-1) mg/dl AST 13 L (15-37) U/L ALT 15 (12-78) U/L Alkaline Phosphatase 75 (45-117) U/L Troponin I 0.046 H* (0-0.045) ng/ml Total Protein 7.8 (6.4-8.2) gm/dl Albumin 3.6 (3.4-5.0) gm/dl Globulin 4.2 H (2.5-4.0) gm/dl Albumin/Globulin Ratio 0.9 (0.9-2) Procalcitonin (0-0.5) ng/ml 08/04/19 08/04/19 08/04/19 Range/Units 20:04 20:18 20:18 WBC (4.8-10.8) K/uL RBC (4.7-6.1) M/uL Hgb (14.0-18.0) g/dL Hct (42-52) % MCV (80-100) fL MCH (25-34) pg MCHC (32-36) g/dL RDW Std Deviation (36.4-46.3) fL RDW Coeff of Paulo (11.5-14.5) % Plt Count (130-400) K/uL MPV (7.4-10.4) fL Immature Gran % (Auto) % Neut % (Auto) % Lymph % (Auto) % Frio % (Auto) % Eos % (Auto) % Baso % (Auto) % Immature Gran # (Auto) (0.00-0.02) K/uL Neut # (Auto) (1.4-6.5) K/uL Lymph # (Auto) (1.2-3.4) K/uL Frio # (Auto) (0.11-0.59) K/uL Eos # (Auto) (0-0.5) K/uL Baso # (Auto) (0-0.2) K/uL PT (9.0-12.0) Seconds INR (0.9-1.1) APTT (21.0-31.0) Seconds PTT Ratio VBG pH 7.40 (7.36-7.41) VBG pCO2 51 H (38-50) mmHg VBG pO2 49 mmHg VBG HCO3 31 mmol/L VBG O2 Saturation 82.2 % VBG Base Excess 4.6 mEq/L Barometric Pressure 726.7 mm/Hg Sodium (136-145) mmol/L Potassium (3.5-5.1) mmol/L Chloride (98-107) mmol/L Carbon Dioxide (21-32) mmol/L Anion Gap (3-11) BUN (7-18) mg/dl Creatinine (0.6-1.4) mg/dl Est Cr Clr Drug Dosing ml/min Est GFR ( Amer) Est GFR (Non-Af Amer) BUN/Creatinine Ratio (10-20) Glucose (70-99) mg/dl Lactate 2.8 H* (0.4-2.0) mmol/L Calcium (8.5-10.1) mg/dl Phosphorus (2.5-4.9) mg/dl Magnesium (1.8-2.4) mg/dl Total Bilirubin (0.2-1) mg/dl AST (15-37) U/L ALT (12-78) U/L Alkaline Phosphatase (45-117) U/L Troponin I (0-0.045) ng/ml Total Protein (6.4-8.2) gm/dl Albumin (3.4-5.0) gm/dl Globulin (2.5-4.0) gm/dl Albumin/Globulin Ratio (0.9-2) Procalcitonin 0.25 (0-0.5) ng/ml 08/04/19 Range/Units 22:07 WBC (4.8-10.8) K/uL RBC (4.7-6.1) M/uL Hgb (14.0-18.0) g/dL Hct (42-52) % MCV (80-100) fL MCH (25-34) pg MCHC (32-36) g/dL RDW Std Deviation (36.4-46.3) fL RDW Coeff of Paulo (11.5-14.5) % Plt Count (130-400) K/uL MPV (7.4-10.4) fL Immature Gran % (Auto) % Neut % (Auto) % Lymph % (Auto) % Frio % (Auto) % Eos % (Auto) % Baso % (Auto) % Immature Gran # (Auto) (0.00-0.02) K/uL Neut # (Auto) (1.4-6.5) K/uL Lymph # (Auto) (1.2-3.4) K/uL Frio # (Auto) (0.11-0.59) K/uL Eos # (Auto) (0-0.5) K/uL Baso # (Auto) (0-0.2) K/uL PT (9.0-12.0) Seconds INR (0.9-1.1) APTT (21.0-31.0) Seconds PTT Ratio VBG pH (7.36-7.41) VBG pCO2 (38-50) mmHg VBG pO2 mmHg VBG HCO3 mmol/L VBG O2 Saturation % VBG Base Excess mEq/L Barometric Pressure mm/Hg Sodium (136-145) mmol/L Potassium (3.5-5.1) mmol/L Chloride (98-107) mmol/L Carbon Dioxide (21-32) mmol/L Anion Gap (3-11) BUN (7-18) mg/dl Creatinine (0.6-1.4) mg/dl Est Cr Clr Drug Dosing ml/min Est GFR ( Amer) Est GFR (Non-Af Amer) BUN/Creatinine Ratio (10-20) Glucose (70-99) mg/dl Lactate 2.0 (0.4-2.0) mmol/L Calcium (8.5-10.1) mg/dl Phosphorus (2.5-4.9) mg/dl Magnesium (1.8-2.4) mg/dl Total Bilirubin (0.2-1) mg/dl AST (15-37) U/L ALT (12-78) U/L Alkaline Phosphatase (45-117) U/L Troponin I (0-0.045) ng/ml Total Protein (6.4-8.2) gm/dl Albumin (3.4-5.0) gm/dl Globulin (2.5-4.0) gm/dl Albumin/Globulin Ratio (0.9-2) Procalcitonin (0-0.5) ng/ml Imaging Data Radiologist's Impression: Radiology results as stated below per my review and the radiologist's interpretation: XR chest 1V portable HISTORY: 78 years-old Male SEPSIS acute sepsis COMPARISON: Chest radiographs 11/06/2018 TECHNIQUE: Portable AP view of the chest FINDINGS: Cardiomegaly. Prior median sternotomy. Unchanged left subclavian pacer/AICD. Pulmonary vascular congestion with interstitial coarsening. No pneumothorax. Small pleural effusions with infrahilar and bibasilar consolidation. Bones appear grossly intact. IMPRESSION: 1. Cardiomegaly with pulmonary edema. 2. Small pleural effusions with infrahilar and bibasilar consolidative opacities. ACT 112: Negative or not required by law. The above report was generated using voice recognition software. It may contain grammatical, syntax or spelling errors. Electronically signed by: Jan Santos M.D. 08/04/2019 9:[address] head/brain wo con CLINICAL HISTORY: 78 years-old Male with AMS. Acutely altered mental status TECHNIQUE: Multiple axial CT images of the head were obtained without contrast. A dose lowering technique was utilized adhering to the principles of ALARA. CT DOSE: 810.83 mGy.cm COMPARISON: Head CT 05/15/2018 FINDINGS: No acute intracranial hemorrhage, midline shift, intracranial mass, hydrocephalus, territorial ischemia or abnormal extra-axial collection. Age- related involutional changes. Mild patchy white matter hypodensities suggest chronic microvascular ischemic disease. Cerebral vascular calcifications are noted. Senescent calcifications of the bilateral lentiform nuclei. Remote fracture of the right frontal bone extends into the right frontal sinus. No acute calvarial fracture identified. 4.5 x 1.2 cm left occipital scalp hematoma. Prior bilateral lens replacement. The paranasal sinuses, mastoid air cells, and middle ear cavities are clear. IMPRESSION: 1. No acute intracranial abnormality or calvarial fracture. 2. Left occipital scalp hematoma. ACT 112: Negative or not required by law. The above report was generated using voice recognition software. It may contain grammatical, syntax or spelling errors. Electronically signed by: Jan Santos M.D. 08/04/2019 9:52 PM ECG Data Attestation: I personally reviewed and interpreted this ECG as follows: Indication: + altered mental status Rate (beats per minute): 121 Rhythm: + atrial fibrillation ECG Intervals/blocks: + Left bundle branch block ECG [place]: + Normal ECG Findings: + PVCs and + Other (Wide QRS) Comparison ECG Date: from (06/04/18) Change: the following changes noted (A fib rhythm unchanged. Rate is faster today. Left bundle is old. Corona unchanged.) Blood Pressure Blood Pressure Findings: Normal blood pressure Blood Pressure Disposition: did not require urgent referral MDM Narrative The patient is a 78 year old white male w/ PMHx Afib, hypertension, diabetes, and sleep apnea who presents to the ED w/ CC of altered mental status and shortness of breath beginning earlier today. Patient was seen and evaluated the bedside. I did take the medical command because the patient apparently had been confused and hypoxic. The patient was placed on CPAP and on arrival the patient was immediately placed on BiPAP. The patient was requiring some supplemental oxygen. Patient does have some bibasilar crackles. Patient was easily arousable and would follow some basic commands. The patient does have some right greater than left lower extremity edema. No calf pain. Patient does have prior history of CABG as well as a device in the left chest. Patient did have blood work completed along with an EKG and troponin. Patient's troponin was elevated but not quite high. The patient does have an elevated lactate. Patient does have a white count patient chest x-ray does show concern for by lateral pneumonia. Given the patient's elevated white count confusion and hypoxia patient did already receive broad- spectrum antibiotics. Patient's VBG does not show that the patient has hypercapnia with respiratory acidosis. I did speak the on-call hospitalist agreed to further evaluate treat the patient. Patient was admitted to the medicine service on BiPAP. I did relay the findings to the patient and the patient's family. Impression & Plan Bilateral pneumonia, Confusion, Respiratory failure with hypoxia Discharge Plan Visit Data *Final* Discharge Date/Time: 08/04/19 23:54 Chief Complaint: Altered Mental Status Stated Complaint: shortness of breath Other Complaint: Cardiac Assessment ED Provider: Everton Dunn Discharge Problem: Bilateral pneumonia, Confusion, Respiratory failure with hypoxia Patient Disposition: Admitted As Inpatient Discharge Instructions Interventions: ED Discharge Assessment Last Done: 08/04/19 23:54 Discharge Problem: Bilateral pneumonia Qualifiers: Pneumonia type: due to unspecified organism Lung location: unspecified part of lung Qualified Code(s): J18.9 - Pneumonia, unspecified organism Respiratory failure with hypoxia Qualifiers: Chronicity: unspecified Qualified Code(s): J96.91 - Respiratory failure, unspecified with hypoxia The scribe's documentation has been prepared under my direction and personally reviewed by me in its entirety. I confirm that the note above accurately reflects all work, treatment, procedures, and medical decision making performed by me.
[2019-08-05] MEDS: METOPROLOL TARTRATE 50 MG TAB PO SCH ×3 (00:59→20:38)
[2019-08-05] MEDS: levETIRAcetam 500 MG TAB PO SCH ×3 (00:59→20:38)
[2019-08-05] MEDS: PIPERACILLIN/TAZOBACTAM 4.5 GM in DEXTROSE 5% 100 ML IV SCH ×3 (01:10→17:31)
[2019-08-05 01:18] LABS: Appearance Urine Clear (Clear); Bacteria Urine Automated Negative (Negative); Bilirubin Urine Negative (Negative); Blood Urine 1+ (Negative); Color Urine Yellow; Glucose Urine UA Trace (Negative); Ketones Urine Negative (Negative); Leukocyte Esterase Urine Negative (Negative); Nitrite Urine Negative (Negative); Protein Urine 2+ (Negative); RBC Urine Automated 0-4 /hpf (0-4); Specific Gravity Urine 1.021 (1.000-1.030); Urobilinogen Urine Negative (Negative)
[2019-08-05] MEDS ORDERED: Nursing to Pharmacy Communication ONE ×2 (04:04→12:49)
[2019-08-05] MEDS: INSULIN ASPART 100 UNITS/ML 3 ML PEN SC SCH ×4 (06:07→20:41)
[2019-08-05] MEDS: BUDESONIDE 0.5 MG/2 ML VIAL (PULMICORT) NEB SCH ×2 (07:08→20:22)
[2019-08-05] MEDS ORDERED: INSULIN ASPART 100 UNITS/ML 3 ML PEN SC SCH (07:30)
[2019-08-05 07:52] LABS: Estimated Average Glucose 229 mg/dl; Hemoglobin A1C 9.6 % (4.5-5.6)
[2019-08-05] MEDS: ASPIRIN 81 MG ECTAB PO SCH (09:00)
[2019-08-05] MEDS ORDERED: VANCOMYCIN HCL 1,000 MG in SODIUM CHLORIDE 0.9% 250 ML IV SCH (09:00)
[2019-08-05] MEDS: DULOXETINE HCL 60 MG CAP PO SCH (09:01)
[2019-08-05] MEDS: ATORVASTATIN 40 MG TAB PO SCH (09:01)
[2019-08-05] MEDS: GABAPENTIN 300 MG CAP PO SCH ×2 (09:01→20:39)
[2019-08-05] MEDS: RIVAROXABAN 15 MG TAB PO SCH (09:02)
[2019-08-05] MEDS: FUROSEMIDE 40 MG TAB PO SCH (11:44)
--- NOTE | 2019-08-05 12:49 | Hospitalist Progress Note ---
Date of Service August 05, 2019 Assessment & Plan (1) Respiratory failure with hypoxia: 78 yo M with PMH CAD, hypertension, diabetic nephropathy,dyslipidemia, diabetes mellitus with retinopathy, peripheral neuropathy, paroxysmal V. tach, PAD, lumbar disc disease, CKD stage III, permanent atrial fibrillation and intracranial hemorrhage presents with increasing SOB found to have bilateral consolidative pneumonia on CXR. Acute respiratory failure with hypoxia/bilateral consolidative pneumonia -CXR- Cardiomegaly with pulmonary edema. Small pleural effusions with infrahilar and bibasilar consolidative opacities -Continue Zosyn IV , covert to PO moving forward -Nasal MRSA neg, dc vancomycin IV -Duonebs every 4 hours while awake and every 2 hours when necessary -Pulmicort Respules 0.5 mg inhaled twice daily -Guaifenesin extended release 60 mg p.o. twice daily -Sputum Gram stain and culture pending -Taper oxygen as symptoms improve, currently sating well on RA Confusion -Head CT- No acute intracranial abnormality or calvarial fracture -Secondary to acute respiratory process CAD/HTN/Afib/elevated troponin -Troponins 0.046 upon admission, repeat 0.730, 0.0561, likely supply demand type II. -Continue atorvastatin, metoprolol tartrate, Xarelto, spironolactone, losartan with hold parameters. 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 Passed SLC eval DVT Prophylaxis: Xarelto DNR/DNI Dispo: Tele Supervising Physician Co-Signing Physician Notes I saw the patient with Dr. Mandel and confirmed bell portions of the history and exam. I agree with the impression and plan as noted above. Upon exam this morning, the patient is seated in bed - alert and oriented. He feels improved overall compared to admission. Respiratory Failure with hypoxia Pneumonia Continue antibiotics. CXR in AM. CAD Chronic Diastolic CHF Restart Lasix this morning. Monitor I/Os BMP in AM. Will re-add metolazone tomorrow if indicated. A-Fib Continue home medications Chronic anticoagulation DM Jardiance 10 mg was added at 08/01/19 outpatient visit, although does not look as if patient started yet Subjective 78 yo M found in bed this AM in NAD. No overnight events. Only complaint this AM is of wanting to eat/drink. Reports from RN that pt coughs when swallows, so SLC consult placed and pt passed, diet ordered. Tolerating PO intake. Breathing i mproved from admission. Pt with no other acute concerns or complaints. Review of Systems Review of Systems: All systems reviewed & are unremarkable except as noted in HPI & below Physical Exam Constitutional: WD/WN, vitals as above Eyes: PERRL, conjunctivae normal, anicteric sclerae ENMT: external ear and nose normal, oropharynx normal Respiratory: normal respiratory effort; no respiratory distress Auscultation: + diminished lung sounds (bases b/l) Cardiovascular: RRR, no murmur, no edema Gastrointestinal (Abdomen): normal bowel sounds, soft, nontender, no hepatosplenomegaly Skin: no rashes, warm and dry Psychiatric: A+Ox3, euthymic affect Lymphatic: chronic LLE trace pretibial edema Results & Data Vital Signs (Past 12 Hours) Vital Signs Temp Pulse Pulse Resp BP Pulse Ox 08/05/19 11:05 36.9 C 75 20 115/60 94 08/05/19 08:00 79 08/05/19 07:08 87 18 93 08/05/19 07:06 36.5 C 87 20 112/63 95 08/05/19 03:22 36.8 C 80 25 H 130/67 94 08/05/19 03:07 92 H 22 95 Laboratory Results Laboratory Results - last 24 hr 08/04/19 08/04/19 08/04/19 20:04 20:04 20:04 WBC 25.58 H RBC 4.26 L Hgb 14.1 Hct 42.1 MCV 98.8 MCH 33.1 MCHC 33.5 RDW Std Deviation 50.4 H RDW Coeff of Paulo 14.1 Plt Count 286 MPV 11.5 H Immature Gran % (Auto) 0.4 Neut % (Auto) 89.6 Lymph % (Auto) 2.4 [place] % (Auto) 7.5 Eos % (Auto) 0.0 Baso % (Auto) 0.1 Immature Gran # (Auto) 0.10 H Neut # (Auto) 22.91 H Lymph # (Auto) 0.62 L [place] # (Auto) 1.92 H Eos # (Auto) 0.00 Baso # (Auto) 0.03 PT 11.9 INR 1.2 H APTT 31.1 H PTT Ratio 1.1 VBG pH VBG pCO2 VBG pO2 VBG HCO3 VBG O2 Saturation VBG Base Excess Barometric Pressure Sodium 140 Potassium 3.5 Chloride 102 Carbon Dioxide 29 Anion Gap 9.0 BUN 23 H Creatinine 1.50 H Est Cr Clr Drug Dosing 55.0 Est GFR ( Amer) 50.6 Est GFR (Non-Af Amer) 43.7 BUN/Creatinine Ratio 15.4 Glucose 254 H POC Glucose Estimat Average Glucose Hemoglobin A1c Lactate Calcium 9.6 Phosphorus 2.8 Magnesium 1.5 L Total Bilirubin 0.8 AST 13 L ALT 15 Alkaline Phosphatase 75 Troponin I 0.046 H* Total Protein 7.8 Albumin 3.6 Globulin 4.2 H Albumin/Globulin Ratio 0.9 Procalcitonin Urine Color Urine Appearance Urine pH Ur Specific [place] Urine Protein Urine Glucose (UA) Urine Ketones Urine Blood Urine Nitrite Urine Bilirubin Urine Urobilinogen Ur Leukocyte Esterase Urine WBC (Auto) Urine RBC (Auto) U Hyaline Cast (Auto) U Epithel Cells (Auto) Urine Bacteria (Auto) Nasal Screen MRSA (PCR) 08/04/19 08/04/19 08/04/19 20:04 20:18 20:18 WBC RBC Hgb Hct MCV MCH MCHC RDW Std Deviation RDW Coeff of Paulo Plt Count MPV Immature Gran % (Auto) Neut % (Auto) Lymph % (Auto) [place] % (Auto) Eos % (Auto) Baso % (Auto) Immature Gran # (Auto) Neut # (Auto) Lymph # (Auto) [place] # (Auto) Eos # (Auto) Baso # (Auto) PT INR APTT PTT Ratio VBG pH 7.40 VBG pCO2 51 H VBG pO2 49 VBG HCO3 31 VBG O2 Saturation 82.2 VBG Base Excess 4.6 Barometric Pressure 726.7 Sodium Potassium Chloride Carbon Dioxide Anion Gap BUN Creatinine Est Cr Clr Drug Dosing Est GFR ( Amer) Est GFR (Non-Af Amer) BUN/Creatinine Ratio Glucose POC Glucose Estimat Average Glucose Hemoglobin A1c Lactate 2.8 H* Calcium Phosphorus Magnesium Total Bilirubin AST ALT Alkaline Phosphatase Troponin I Total Protein Albumin Globulin Albumin/Globulin Ratio Procalcitonin 0.25 Urine Color Urine Appearance Urine pH Ur Specific [place] Urine Protein Urine Glucose (UA) Urine Ketones Urine Blood Urine Nitrite Urine Bilirubin Urine Urobilinogen Ur Leukocyte Esterase Urine WBC (Auto) Urine RBC (Auto) U Hyaline Cast (Auto) U Epithel Cells (Auto) Urine Bacteria (Auto) Nasal Screen MRSA (PCR) 08/04/19 08/05/19 08/05/19 22:07 01:05 06:03 WBC RBC Hgb Hct MCV MCH MCHC RDW Std Deviation RDW Coeff of Paulo Plt Count MPV Immature Gran % (Auto) Neut % (Auto) Lymph % (Auto) [place] % (Auto) Eos % (Auto) Baso % (Auto) Immature Gran # (Auto) Neut # (Auto) Lymph # (Auto) [place] # (Auto) Eos # (Auto) Baso # (Auto) PT INR APTT PTT Ratio VBG pH VBG pCO2 VBG pO2 VBG HCO3 VBG O2 Saturation VBG Base Excess Barometric Pressure Sodium Potassium Chloride Carbon Dioxide Anion Gap BUN Creatinine Est Cr Clr Drug Dosing Est GFR ( Amer) Est GFR (Non-Af Amer) BUN/Creatinine Ratio Glucose POC Glucose 276 H Estimat Average Glucose Hemoglobin A1c Lactate 2.0 Calcium Phosphorus Magnesium Total Bilirubin AST ALT Alkaline Phosphatase Troponin I Total Protein Albumin Globulin Albumin/Globulin Ratio Procalcitonin Urine Color Yellow Urine Appearance Clear Urine pH 5.0 Ur Specific [place] 1.021 Urine Protein 2+ H Urine Glucose (UA) Trace H Urine Ketones Negative Urine Blood 1+ H Urine Nitrite Negative Urine Bilirubin Negative Urine Urobilinogen Negative Ur Leukocyte Esterase Negative Urine WBC (Auto) 1-5 Urine RBC (Auto) 0-4 U Hyaline Cast (Auto) 1-5 U Epithel Cells (Auto) 5-10 H Urine Bacteria (Auto) Negative Nasal Screen MRSA (PCR) 08/05/19 08/05/19 08/05/19 06:32 06:35 07:30 WBC RBC Hgb Hct MCV MCH MCHC RDW Std Deviation RDW Coeff of Paulo Plt Count MPV Immature Gran % (Auto) Neut % (Auto) Lymph % (Auto) [place] % (Auto) Eos % (Auto) Baso % (Auto) Immature Gran # (Auto) Neut # (Auto) Lymph # (Auto) [place] # (Auto) Eos # (Auto) Baso # (Auto) PT INR APTT PTT Ratio VBG pH VBG pCO2 VBG pO2 VBG HCO3 VBG O2 Saturation VBG Base Excess Barometric Pressure Sodium Potassium Chloride Carbon Dioxide Anion Gap BUN Creatinine Est Cr Clr Drug Dosing Est GFR ( Amer) Est GFR (Non-Af Amer) BUN/Creatinine Ratio Glucose POC Glucose 245 H Estimat Average Glucose 229 Hemoglobin A1c 9.6 H Lactate Calcium Phosphorus Magnesium Total Bilirubin AST ALT Alkaline Phosphatase Troponin I 0.730 H* Total Protein Albumin Globulin Albumin/Globulin Ratio Procalcitonin Urine Color Urine Appearance Urine pH Ur Specific [place] Urine Protein Urine Glucose (UA) Urine Ketones Urine Blood Urine Nitrite Urine Bilirubin Urine Urobilinogen Ur Leukocyte Esterase Urine WBC (Auto) Urine RBC (Auto) U Hyaline Cast (Auto) U Epithel Cells (Auto) Urine Bacteria (Auto) Nasal Screen MRSA (PCR) 08/05/19 08/05/19 08/05/19 09:10 11:26 11:39 WBC RBC Hgb Hct MCV MCH MCHC RDW Std Deviation RDW Coeff of Paulo Plt Count MPV Immature Gran % (Auto) Neut % (Auto) Lymph % (Auto) [place] % (Auto) Eos % (Auto) Baso % (Auto) Immature Gran # (Auto) Neut # (Auto) Lymph # (Auto) [place] # (Auto) Eos # (Auto) Baso # (Auto) PT INR APTT PTT Ratio VBG pH VBG pCO2 VBG pO2 VBG HCO3 VBG O2 Saturation VBG Base Excess Barometric Pressure Sodium Potassium Chloride Carbon Dioxide Anion Gap BUN Creatinine Est Cr Clr Drug Dosing Est GFR ( Amer) Est GFR (Non-Af Amer) BUN/Creatinine Ratio Glucose POC Glucose 299 H Estimat Average Glucose Hemoglobin A1c Lactate Calcium Phosphorus Magnesium Total Bilirubin AST ALT Alkaline Phosphatase Troponin I 0.561 H* Total Protein Albumin Globulin Albumin/Globulin Ratio Procalcitonin Urine Color Urine Appearance Urine pH Ur Specific [place] Urine Protein Urine Glucose (UA) Urine Ketones Urine Blood Urine Nitrite Urine Bilirubin Urine Urobilinogen Ur Leukocyte Esterase Urine WBC (Auto) Urine RBC (Auto) U Hyaline Cast (Auto) U Epithel Cells (Auto) Urine Bacteria (Auto) Nasal Screen MRSA (PCR) Negative Medications Administered Current Inpatient Medications Aspirin (Ecotrin Ectab) 81 mg PO QAM [facility] Stop: 09/04/19 08:59 Last Admin: 08/05/19 09:00 Dose: 81 mg Documented by: Atorvastatin Calcium (Lipitor) 80 mg PO DAILY [facility] Stop: 09/04/19 08:59 Last Admin: 08/05/19 09:01 Dose: 80 mg Documented by: Budesonide (Pulmicort Respules) 0.5 mg NEB BIDR [facility] Stop: 09/04/19 06:59 Last Admin: 08/05/19 07:08 Dose: 0.5 mg Documented by: Dextrose (Dextrose 50%) 25 - 50 ml IV UD PRN; Protocol PRN Reason: Hypoglycemia Protocol Stop: 09/04/19 00:19 Duloxetine HCl (Cymbalta) 60 mg PO DAILY [facility] Stop: 09/04/19 08:59 Last Admin: 08/05/19 09:01 Dose: 60 mg Documented by: Furosemide (Lasix) 40 mg PO QAM [facility] Stop: 09/04/19 09:44 Last Admin: 08/05/19 11:44 Dose: 40 mg Documented by: Gabapentin (Neurontin) 600 mg PO BID [facility] Stop: 09/04/19 08:59 Last Admin: 08/05/19 09:01 Dose: 600 mg Documented by: Glucagon (Glucagen) 1 mg SQ UD PRN; Protocol PRN Reason: Hypoglycemia Protocol Stop: 09/04/19 00:19 Glucose (Dex4 Glucose) 4 - 8 tabs PO UD PRN; Protocol PRN Reason: Hypoglycemia Protocol Stop: 09/04/19 00:19 Glucose (Glucose 40%) 15 - 30 gm PO UD PRN; Protocol PRN Reason: Hypoglycemia Protocol Stop: 09/04/19 00:19 Piperacillin Sod/Tazobactam (Sod 4.5 gm/ Dextrose) 120 mls @ 28.75 mls/hr IV Q8H [facility] Stop: 08/12/19 01:59 Last Admin: 08/05/19 11:44 Dose: 28.8 mls/hr Documented by: Insulin Aspart (Novolog Flexpen) 0 units SC Q6 [facility] Stop: 09/04/19 05:59 Last Admin: 08/05/19 11:45 Dose: 6 units Documented by: Levetiracetam (Keppra) 500 mg PO BID [facility] Stop: 09/04/19 00:19 Last Admin: 08/05/19 09:00 Dose: 500 mg Documented by: Metoprolol Tartrate (Lopressor) 50 mg PO BID [facility] Stop: 09/04/19 00:19 Last Admin: 08/05/19 09:00 Dose: 50 mg Documented by: Miscellaneous (Carbohydrates For Hypoglycemia) 15 - 30 gm PO UD PRN PRN Reason: Hypoglycemia Protocol Stop: 09/04/19 00:19 Miscellaneous Information (Consult) 1 ea N/A UD PRN PRN Reason: Consult Stop: 09/04/19 00:19 Miscellaneous Information (Consult) 1 ea N/A UD PRN PRN Reason: Consult Stop: 09/04/19 00:19 Miscellaneous Information (Nursing To Pharmacy Communication) 1 ea N/A ONE ONE Stop: 08/05/19 12:50 Ondansetron HCl (Zofran) 4 mg IV Q6H PRN PRN Reason: Nausea Stop: 09/04/19 00:19 Rivaroxaban (Xarelto) 15 mg PO DAILY [facility] Stop: 09/04/19 08:59 Last Admin: 08/05/19 09:02 Dose: 15 mg Documented by: Resident Activity Tracking Resident Involvement: Resident Care Provided Care Provided: Adult Hospital Medicine (1) Respiratory failure with hypoxia Chronicity: unspecified Qualified Code(s): J96.91 - Respiratory failure, unspecified with hypoxia
[2019-08-05] MEDS ORDERED: LANTUS PER UNIT CHARGE SQ STA (14:44)
[2019-08-05] MEDS ORDERED: PHARMACY GLYCEMIC MGMT CONSULT PRN (15:13)
--- NOTE | 2019-08-05 16:37 | Pharmacy Report ---
Glycemic Control Consultation - Date of Service August 05, 2019 - Scope Scope: Glycemic Pharmacist consulted for glycemic control and to write orders per [facility] inpatient glycemic control protocol - Objective Weight: 123.9 kg Accuchecks BSG (last 24hrs): 08/04/19 08/05/19 08/05/19 20:04 06:03 07:30 Glucose 254 H POC Glucose 276 H 245 H 08/05/19 08/05/19 11:26 16:05 Glucose POC Glucose 299 H 318 H* Laboratory Data (last 24hrs): 08/04/19 20:04 Potassium 3.5 Carbon Dioxide 29 Anion Gap 9.0 Creatinine 1.50 H Est Cr Clr Drug Dosing 55.0 HbA1c: Hemoglobin A1c 9.6 % (4.5-5.6) H 08/05/19 06:32 - Recent Pertinent Medications Outpatient Anti-diabetic Regimen: * Lantus 120 units SC either daily or BID * Medication history = BID * Outpt clinical systems educator dose note 07/08/19 indicates that outpatient dose is 60+60 units (administered at same time but at separate site) but also indicates dose is once a day (per text) but BID (per medication list) * Novolog 60 units SC TID plus sliding scale * A1c = 9.6 % on 08/05/19 The patient is currently receiving: * Basal insulin: None * Correctional Insulin: Novolog Correction per scale ACHS Goal Range: Low 100 mg/dL - High 150 mg/dL Correction Factor: 25 mg/dL/unit * Prandial insulin: Per carb ratio of 1 unit per 10 grams CHO consumed Risk Factors for Insulin Resistance: * Infection: PNA * Diet: T2DM starting at dinner - Assessment & Plan Assessment & Plan: ASSESSMENT: * 78 yo M with T2DM on a significant amount (>300 units/day) of outpatient insulin, which was confirmed after extensive review of clinical systems educator note from 07/08/19. * However, unclear if patient receives 120 units Lantus BID or if the BID refers to the two simultaneous doses of 60 units that the patient usually takes to avoid the depot effect, thus making his dose Lantus 120 units SC daily * No Lantus administered thus far as an inpatient and patient now ordered diet therefore will give 140 units x1 now (as two separate 70 unit injections). * Patient may require more tonight if it is determined that he does indeed take Lantus 120 units BID as an outpatient * Confirmed Novolog dose of 60-70 units with meals in clinical systems educator note. Will therefore significantly tighten Novolog parameters. * Patient very well may require insulin IVP and/or insulin drip during his admission until his inpatient requirements can be better estimated, but will start with basal/bolus for now PLAN FOR INPATIENT GLYCEMIC CONTROL: * Basal insulin * Lantus 70+70 units SQ now (total of 140 units at two separate sites). * Patient may or may not require additional Lantus tonight - will leave out for 2nd shift assessment * Bolus insulin * NovoLog per scale ACHS or Q6hrs while NPO * Goal Range: Low 120 mg/dL - High 160 mg/dL * Correction Factor: 8 mg/dL/unit * Nutritional / Prandial insulin per carb ratio of 1 unit per 2 grams CHO consumed * Please note that the plan above was derived based on current level of insulin resistance and hospital stress. These recommendations are appropriate for inpatient admission only. Plan of care upon discharge will need to be reassessed to avoid potential outpatient hypo/hyperglycemia. Thank you.
[2019-08-05] MEDS: INSULIN GLARGINE 100 UNIT/ML VIAL SC SCH ×2 (16:53→16:57)
--- NOTE | 2019-08-05 19:55 | Electrocardiogram Report ---
Test Reason : Blood Pressure : / mmHG Vent. Rate : 121 BPM Atrial Rate : 117 BPM P-R Int : 000 ms QRS Dur : 148 ms QT Int : 372 ms P-R-T Axes : 000 -08 146 degrees QTc Int : 528 ms Atrial fibrillation Left bundle branch block Aberrant conduction Abnormal ECG Confirmed by Humza Guerra ([id number]) on 08/05/2019 7:55:11 PM Referred By: REFERRED SELF Confirmed By:Alberto Guerra
--- NOTE | 2019-08-05 20:07 | Electrocardiogram Report ---
Test Reason : Blood Pressure : / mmHG Vent. Rate : 090 BPM Atrial Rate : 000 BPM P-R Int : 000 ms QRS Dur : 146 ms QT Int : 418 ms P-R-T Axes : 000 066 103 degrees QTc Int : 511 ms Atrial fibrillation Left bundle branch block Abnormal ECG When compared with ECG of 04-AUG-2019 20:05, (unconfirmed) T wave inversion less evident in Lateral leads Confirmed by Humza Guerra ([id number]) on 08/05/2019 8:06:29 PM Referred By: REFERRED SELF Confirmed By:Alberto Guerra
[2019-08-05] MEDS ORDERED: INSULIN GLARGINE SOLOSTAR 100 UNITS/ML 3 ML PEN SC SCH (21:00)
[2019-08-05] MEDS ORDERED: TRAMADOL HCL 50 MG TABLET PO PRN (23:50)
[2019-08-05] MEDS ORDERED: ACETAMINOPHEN 325 MG TAB PO PRN (23:51)
[2019-08-06] MEDS: INSULIN ASPART 100 UNITS/ML 3 ML PEN SC SCH ×6 (00:40→21:18)
[2019-08-06] MEDS: PIPERACILLIN/TAZOBACTAM 4.5 GM in DEXTROSE 5% 100 ML IV SCH ×3 (02:04→17:52)
[2019-08-06] MEDS: BUDESONIDE 0.5 MG/2 ML VIAL (PULMICORT) NEB SCH ×2 (07:04→19:54)
[2019-08-06 07:11] LABS: Basophils # (auto) 0.02 K/uL (0-0.2); Basophils % (auto) 0.1 %; Eosinophils # (auto) 0.11 K/uL (0-0.5); Eosinophils % (auto) 0.8 %; Hematocrit (blood only) 39.5 % (42-52); Immature Granulocytes # (auto) 0.04 K/uL (0.00-0.02); Immature Granulocytes % (auto) 0.3 %; Lymphocytes % (auto) 11.2 %; Mean Corpuscular Hemoglobin 32.7 pg (25-34); Mean Corpuscular Hgb Conc 32.9 g/dL (32-36); Mean Corpuscular Volume 99.5 fL (80-100); Mean Platelet Volume 11.1 fL (7.4-10.4); Monocytes # (auto) 1.27 K/uL (0.11-0.59); Monocytes % (auto) 8.9 %; Neutrophils % (auto) 78.7 %; Platelet Count 220 K/uL (130-400); RDW Coefficient of Variation 13.9 % (11.5-14.5); RDW Standard Deviation 50.4 fL (36.4-46.3); Red Blood Count 3.97 M/uL (4.7-6.1); White Blood Count 14.24 K/uL (4.8-10.8)
[2019-08-06 07:45] LABS: BUN Creatinine Ratio 21.5 (10-20); Calcium 9.3 mg/dl (8.5-10.1); Creatinine Clr Calc Pharmacy 69.1 ml/min; Est GFR (Non-African American) 59.6; Magnesium 1.8 mg/dl (1.8-2.4); Potassium 3.3 mmol/L (3.5-5.1)
[2019-08-06] MEDS ORDERED: POTASSIUM CHLORIDE 20 MEQ TABCR PO STA (07:47)
--- NOTE | 2019-08-06 09:31 | XRay Report ---
XR chest 2V PA/lateral HISTORY: 78 years-old Male follow up pneumonia all of study in a patient with pneumonia COMPARISON: Chest radiograph 08/04/2019 TECHNIQUE: PA and lateral views of the chest FINDINGS: Cardiac silhouette is enlarged, unchanged. Prior median sternotomy. Left subclavian pacer/ICD. No pne umothorax. Pulmonary edema. Small pleural effusions with bibasilar consolidation persists. Slightly i mproved aeration of the lung bases from comparison. Degenerative changes of the shoulders and spine. IMPRESSION: 1. Cardiomegaly with pulmonary edema. 2. Small pleural effusions with mildly improved bibasilar consolidation. ACT 112: Negative or not required by law. The above report was generated using voice recognition software. It may contain grammatical, syntax o r spelling errors. Electronically signed by: Jan Santos M.D. 08/06/2019 9:30 AM
[2019-08-06] MEDS: DULOXETINE HCL 60 MG CAP PO SCH (10:05)
[2019-08-06] MEDS: ASPIRIN 81 MG ECTAB PO SCH (10:06)
[2019-08-06] MEDS: levETIRAcetam 500 MG TAB PO SCH ×2 (10:06→21:17)
[2019-08-06] MEDS: FUROSEMIDE 40 MG TAB PO SCH (10:07)
[2019-08-06] MEDS: ATORVASTATIN 40 MG TAB PO SCH (10:08)
[2019-08-06] MEDS: METOPROLOL TARTRATE 50 MG TAB PO SCH ×2 (10:08→21:17)
[2019-08-06] MEDS: GABAPENTIN 300 MG CAP PO SCH ×2 (10:09→21:17)
[2019-08-06] MEDS: RIVAROXABAN 15 MG TAB PO SCH (10:10)
--- NOTE | 2019-08-06 11:41 | Hospitalist Progress Note ---
Date of Service August 06, 2019 Assessment & Plan (1) Respiratory failure with hypoxia: 78 yo M with PMH CAD, hypertension, diabetic nephropathy,dyslipidemia, diabetes mellitus with retinopathy, peripheral neuropathy, paroxysmal V. tach, PAD, lumbar disc disease, CKD stage III, permanent atrial fibrillation and intracranial hemorrhage presents with increasing SOB found to have bilateral consolidative pneumonia on CXR. Acute respiratory failure with hypoxia/bilateral consolidative pneumonia -CXR- Cardiomegaly with pulmonary edema. Small pleural effusions with infrahilar and bibasilar consolidative opacities -Continue Zosyn IV , will covert to PO moving forward -Nasal MRSA neg, dc vancomycin IV -Duonebs every 4 hours while awake and every 2 hours when necessary -Pulmicort Respules 0.5 mg inhaled twice daily -Guaifenesin extended release 60 mg p.o. twice daily -Sputum Gram stain and culture - NGTD -Taper oxygen as symptoms improve, currently sating well on RA. No home O2 requirment [employer] -repeat CXR reviewed today Confusion -Head CT- No acute intracranial abnormality or calvarial fracture -Secondary to acute hypoxic respiratory process CAD/HTN/Afib/elevated troponin -Troponins 0.046 upon admission, repeat 0.730, 0.0561, likely supply demand type II. -Continue atorvastatin, metoprolol tartrate, Xarelto with hold parameters - spironolactone 25 daily ([employer] 25 BID), losartan 12.5 ([employer] 25) resumed today. 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 Restarted today and repleted with 40 meq PO FEN/GI: HH/DM2 Diet DVT Prophylaxis: Xarelto DNR/DNI Dispo: Downgrade to med surg Supervising Physician Co-Signing Physician Notes I saw the patient with Dr. Mandel and confirmed bell portions of the history and exam. I agree with the impression and plan as noted above. Upon exam this morning, the patient is seated in bed - alert and oriented. He feels improved overall compared to admission. Respiratory Failure with hypoxia Pneumonia Chest x-ray shows interval improvement in bibasilar consolidation; mild pulmonary edema Continue antibiotics. Consult physical therapy CAD Chronic Diastolic CHF Continue Lasix Restart Aldactone 25 mg daily (was on 25 mg twice daily at home) Restart losartan 12.5 mg daily (was on 25 mg daily at home) Hypokalemia, mild Replete Restart Aldactone A-Fib Continue home medications Chronic anticoagulation DM Jardiance 10 mg was added at 08/01/19 outpatient visit, although does not look as if patient started yet Subjective 78 yo M found in bed this AM in NAD. No overnight events. Tolerating PO intake. Breathing improved from admission. Pt with no other acute concerns or complaints. Review of Systems Review of Systems: All systems reviewed & are unremarkable except as noted in HPI & below Physical Exam Constitutional: WD/WN, vitals as above Eyes: PERRL, conjunctivae normal, anicteric sclerae ENMT: external ear and nose normal, oropharynx normal Respiratory: normal respiratory effort; no respiratory distress Auscultation: + diminished lung sounds (bases b/l) Cardiovascular: RRR, no murmur, no edema Gastrointestinal (Abdomen): normal bowel sounds, soft, nontender, no hepatosplenomegaly Skin: no rashes, warm and dry Psychiatric: A+Ox3, euthymic affect Results & Data Vital Signs (Past 12 Hours) Vital Signs Temp Pulse Pulse Resp BP BP Pulse Ox 08/06/19 11:32 36.5 C 67 20 135/74 95 08/06/19 08:31 36.5 C 85 18 115/74 97 08/06/19 07:56 36.7 C 80 19 128/72 96 08/06/19 07:07 87 14 96 08/06/19 04:12 36.4 C L 83 20 125/59 L 91 08/05/19 23:49 84 24 99 Laboratory Results Laboratory Results - last 24 hr 08/05/19 08/05/19 08/05/19 09:10 11:26 11:39 WBC RBC Hgb Hct MCV MCH MCHC RDW Std Deviation RDW Coeff of Paulo Plt Count MPV Immature Gran % (Auto) Neut % (Auto) Lymph % (Auto) Hardy % (Auto) Eos % (Auto) Baso % (Auto) Immature Gran # (Auto) Neut # (Auto) Lymph # (Auto) Hardy # (Auto) Eos # (Auto) Baso # (Auto) Sodium Potassium Chloride Carbon Dioxide Anion Gap BUN Creatinine Est Cr Clr Drug Dosing Est GFR ( Amer) Est GFR (Non-Af Amer) BUN/Creatinine Ratio Glucose POC Glucose 299 H Calcium Magnesium Troponin I 0.561 H* Nasal Screen MRSA (PCR) Negative 08/05/19 08/05/19 08/06/19 16:05 20:18 00:07 WBC RBC Hgb Hct MCV MCH MCHC RDW Std Deviation RDW Coeff of Paulo Plt Count MPV Immature Gran % (Auto) Neut % (Auto) Lymph % (Auto) Hardy % (Auto) Eos % (Auto) Baso % (Auto) Immature Gran # (Auto) Neut # (Auto) Lymph # (Auto) Hardy # (Auto) Eos # (Auto) Baso # (Auto) Sodium Potassium Chloride Carbon Dioxide Anion Gap BUN Creatinine Est Cr Clr Drug Dosing Est GFR ( Amer) Est GFR (Non-Af Amer) BUN/Creatinine Ratio Glucose POC Glucose 318 H* 262 H 121 H Calcium Magnesium Troponin I Nasal Screen MRSA (PCR) 08/06/19 08/06/19 08/06/19 04:10 06:46 06:46 WBC 14.24 H RBC 3.97 L Hgb 13.0 L Hct 39.5 L MCV 99.5 MCH 32.7 MCHC 32.9 RDW Std Deviation 50.4 H RDW Coeff of Paulo 13.9 Plt Count 220 MPV 11.1 H Immature Gran % (Auto) 0.3 Neut % (Auto) 78.7 Lymph % (Auto) 11.2 Hardy % (Auto) 8.9 Eos % (Auto) 0.8 Baso % (Auto) 0.1 Immature Gran # (Auto) 0.04 H Neut # (Auto) 11.20 H Lymph # (Auto) 1.60 Hardy # (Auto) 1.27 H Eos # (Auto) 0.11 Baso # (Auto) 0.02 Sodium 137 Potassium 3.3 L Chloride 97 L Carbon Dioxide 37 H Anion Gap 3.0 BUN 25 H Creatinine 1.16 D Est Cr Clr Drug Dosing 69.1 Est GFR ( Amer) 69.0 Est GFR (Non-Af Amer) 59.6 BUN/Creatinine Ratio 21.5 H Glucose 94 POC Glucose 90 Calcium 9.3 Magnesium 1.8 Troponin I Nasal Screen MRSA (PCR) 08/06/19 08/06/19 07:20 11:16 WBC RBC Hgb Hct MCV MCH MCHC RDW Std Deviation RDW Coeff of Paulo Plt Count MPV Immature Gran % (Auto) Neut % (Auto) Lymph % (Auto) Hardy % (Auto) Eos % (Auto) Baso % (Auto) Immature Gran # (Auto) Neut # (Auto) Lymph # (Auto) Hardy # (Auto) Eos # (Auto) Baso # (Auto) Sodium Potassium Chloride Carbon Dioxide Anion Gap BUN Creatinine Est Cr Clr Drug Dosing Est GFR ( Amer) Est GFR (Non-Af Amer) BUN/Creatinine Ratio Glucose POC Glucose 97 267 H Calcium Magnesium Troponin I Nasal Screen MRSA (PCR) Medications Administered Current Inpatient Medications Acetaminophen (Tylenol) 650 mg PO Q4H PRN PRN Reason: Pain or Fever Stop: 09/04/19 23:50 Aspirin (Ecotrin Ectab) 81 mg PO QAM [facility] Stop: 09/04/19 08:59 Last Admin: 08/06/19 10:06 Dose: 81 mg Documented by: Atorvastatin Calcium (Lipitor) 80 mg PO DAILY [facility] Stop: 09/04/19 08:59 Last Admin: 08/06/19 10:08 Dose: 80 mg Documented by: Budesonide (Pulmicort Respules) 0.5 mg NEB BIDR [facility] Stop: 09/04/19 06:59 Last Admin: 08/06/19 07:04 Dose: 0.5 mg Documented by: Dextrose (Dextrose 50%) 25 - 50 ml IV UD PRN; Protocol PRN Reason: Hypoglycemia Protocol Stop: 09/04/19 00:19 Dextrose (Dextrose 50%) 25 - 50 ml IV UD PRN; Protocol PRN Reason: Hypoglycemia Protocol Stop: 09/04/19 14:42 Duloxetine HCl (Cymbalta) 60 mg PO DAILY [facility] Stop: 09/04/19 08:59 Last Admin: 08/06/19 10:05 Dose: 60 mg Documented by: Furosemide (Lasix) 40 mg PO QAM [facility] Stop: 09/04/19 09:44 Last Admin: 08/06/19 10:07 Dose: 40 mg Documented by: Gabapentin (Neurontin) 600 mg PO BID [facility] Stop: 09/04/19 08:59 Last Admin: 08/06/19 10:09 Dose: 600 mg Documented by: Glucagon (Glucagen) 1 mg SQ UD PRN; Protocol PRN Reason: Hypoglycemia Protocol Stop: 09/04/19 00:19 Glucagon (Glucagen) 1 mg SQ UD PRN; Protocol PRN Reason: Hypoglycemia Protocol Stop: 09/04/19 14:42 Glucose (Dex4 Glucose) 4 - 8 tabs PO UD PRN; Protocol PRN Reason: Hypoglycemia Protocol Stop: 09/04/19 00:19 Glucose (Glucose 40%) 15 - 30 gm PO UD PRN; Protocol PRN Reason: Hypoglycemia Protocol Stop: 09/04/19 00:19 Glucose (Dex4 Glucose) 4 - 8 tabs PO UD PRN; Protocol PRN Reason: Hypoglycemia Protocol Stop: 09/04/19 14:42 Glucose (Glucose 40%) 15 - 30 gm PO UD PRN; Protocol PRN Reason: Hypoglycemia Protocol Stop: 09/04/19 14:42 Piperacillin Sod/Tazobactam (Sod 4.5 gm/ Dextrose) 120 mls @ 28.75 mls/hr IV Q8H [facility] Stop: 08/12/19 01:59 Last Admin: 08/06/19 10:11 Dose: 28.8 mls/hr Documented by: Insulin Aspart (Novolog Flexpen) 0 units SC ACHS [facility] Stop: 09/04/19 16:29 Last Admin: 08/06/19 08:50 Dose: 33 units Documented by: Levetiracetam (Keppra) 500 mg PO BID [facility] Stop: 09/04/19 00:19 Last Admin: 08/06/19 10:06 Dose: 500 mg Documented by: Metoprolol Tartrate (Lopressor) 50 mg PO BID [facility] Stop: 09/04/19 00:19 Last Admin: 08/06/19 10:08 Dose: 50 mg Documented by: Miscellaneous (Carbohydrates For Hypoglycemia) 15 - 30 gm PO UD PRN PRN Reason: Hypoglycemia Protocol Stop: 09/04/19 00:19 Miscellaneous (Carbohydrates For Hypoglycemia) 15 - 30 gm PO UD PRN PRN Reason: Hypoglycemia Protocol Stop: 09/04/19 14:42 Miscellaneous Information (Consult) 1 ea N/A UD PRN PRN Reason: Consult Stop: 09/04/19 00:19 Miscellaneous Information (Consult Glycemic Management Pharmacy) 1 ea N/A UD PRN PRN Reason: Consult Stop: 09/04/19 15:12 Ondansetron HCl (Zofran) 4 mg IV Q6H PRN PRN Reason: Nausea Stop: 09/04/19 00:19 Rivaroxaban (Xarelto) 15 mg PO DAILY [facility] Stop: 09/04/19 08:59 Last Admin: 08/06/19 10:10 Dose: 15 mg Documented by: Tramadol HCl (Ultram) 50 mg PO Q4H PRN PRN Reason: Pain Stop: 09/04/19 23:49 Last Admin: 08/06/19 00:30 Dose: 50 mg Documented by: Resident Activity Tracking Resident Involvement: Resident Care Provided Care Provided: Adult Hospital Medicine (1) Respiratory failure with hypoxia Chronicity: unspecified Qualified Code(s): J96.91 - Respiratory failure, unspecified with hypoxia
[2019-08-06] MEDS: LOSARTAN POTASSIUM 25 MG TAB PO SCH (13:20)
[2019-08-06] MEDS: SPIRONOLACTONE 25 MG TAB PO SCH (13:20)
--- NOTE | 2019-08-06 15:30 | Pharmacy Report ---
Pharmacy Glycemic Short Note 2 - Date of Service August 06, 2019 - Glycemic Short BSG Results (Last 24 hours): 08/05/19 08/05/19 08/06/19 16:05 20:18 00:07 Glucose POC Glucose 318 H* 262 H 121 H 08/06/19 08/06/19 08/06/19 04:10 06:46 07:20 Glucose 94 POC Glucose 90 97 08/06/19 11:16 Glucose POC Glucose 267 H OUTPATIENT ANTIDIABETIC REGIMEN: * Lantus 120 units SC confirmed daily (discussed with outpatient provider) * Novolog 60 units SC TID plus sliding scale * A1c = 9.6 % on 08/05/19 ASSESSMENT: * Patient fasting this morning was well controlled however post prandial BSGs remain elevated. Will decrease lantus dose today given significant reduction in fasting. Goal range was lowered and CF was tightened on novolog. My consider tightening carb coverage further (1.5) if post prandials remain significantly elevated (>250). If patient remains difficult to control, may also consider an insulin infusion. PLAN FOR INPATIENT GLYCEMIC CONTROL: * Hold outpatient oral diabetes medications * Basal insulin * Lantus 60 units SQ in two different locations at the same time for a total of 120 units q24 hours * Bolus insulin * NovoLog per scale ACHS or Q6hrs while NPO * Goal Range: Low 110 mg/dL - High 150 mg/dL * Correction Factor: 7 mg/dL/unit * Nutritional / Prandial insulin per carb ratio of 1 unit per 2 grams CHO c onsumed
[2019-08-06] MEDS: INSULIN GLARGINE 100 UNIT/ML VIAL SC SCH ×2 (17:37→17:41)
[2019-08-07] MEDS: PIPERACILLIN/TAZOBACTAM 4.5 GM in DEXTROSE 5% 100 ML IV SCH ×3 (02:33→17:56)
[2019-08-07 07:48] LABS: Basophils # (auto) 0.03 K/uL (0-0.2); Basophils % (auto) 0.2 %; Eosinophils # (auto) 0.19 K/uL (0-0.5); Eosinophils % (auto) 1.5 %; Hematocrit (blood only) 40.6 % (42-52); Hemoglobin 13.3 g/dL (14.0-18.0); Immature Granulocytes # (auto) 0.02 K/uL (0.00-0.02); Immature Granulocytes % (auto) 0.2 %; Lymphocytes # (auto) 1.58 K/uL (1.2-3.4); Lymphocytes % (auto) 12.6 %; Mean Corpuscular Hemoglobin 32.6 pg (25-34); Mean Corpuscular Hgb Conc 32.8 g/dL (32-36); Mean Corpuscular Volume 99.5 fL (80-100); Mean Platelet Volume 10.9 fL (7.4-10.4); Monocytes # (auto) 1.33 K/uL (0.11-0.59); Monocytes % (auto) 10.6 %; Neutrophils % (auto) 74.9 %; Platelet Count 247 K/uL (130-400); RDW Coefficient of Variation 13.8 % (11.5-14.5); RDW Standard Deviation 49.7 fL (36.4-46.3); Red Blood Count 4.08 M/uL (4.7-6.1); White Blood Count 12.55 K/uL (4.8-10.8)
[2019-08-07] MEDS: BUDESONIDE 0.5 MG/2 ML VIAL (PULMICORT) NEB SCH ×2 (07:52→19:33)
[2019-08-07 08:16] LABS: BUN Creatinine Ratio 20.1 (10-20); Calcium 9.7 mg/dl (8.5-10.1); Creatinine Clr Calc Pharmacy 72.8 ml/min; Est GFR (African American) 73.6; Est GFR (Non-African American) 63.5; Potassium 3.2 mmol/L (3.5-5.1)
[2019-08-07] MEDS: metOLazone 2.5 MG TABLET PO SCH (08:54)
[2019-08-07] MEDS: SPIRONOLACTONE 25 MG TAB PO SCH ×2 (08:54→17:59)
[2019-08-07] MEDS: METOPROLOL TARTRATE 50 MG TAB PO SCH ×2 (08:55→21:07)
[2019-08-07] MEDS: LOSARTAN POTASSIUM 25 MG TAB PO SCH (08:55)
[2019-08-07] MEDS: DULOXETINE HCL 60 MG CAP PO SCH (08:55)
[2019-08-07] MEDS: levETIRAcetam 500 MG TAB PO SCH ×2 (08:55→21:07)
[2019-08-07] MEDS: ATORVASTATIN 40 MG TAB PO SCH (08:55)
[2019-08-07] MEDS: RIVAROXABAN 15 MG TAB PO SCH (08:56)
[2019-08-07] MEDS: FUROSEMIDE 40 MG TAB PO SCH (08:56)
[2019-08-07] MEDS: GABAPENTIN 300 MG CAP PO SCH ×2 (08:56→21:06)
[2019-08-07] MEDS: ASPIRIN 81 MG ECTAB PO SCH (08:56)
[2019-08-07] MEDS ORDERED: POTASSIUM CHLORIDE 20 MEQ TABCR PO STA (09:17)
[2019-08-07] MEDS: INSULIN ASPART 100 UNITS/ML 3 ML PEN SC SCH ×4 (11:31→21:13)
--- NOTE | 2019-08-07 16:13 | Pharmacy Report ---
Pharmacy Glycemic Short Note 2 - Date of Service August 07, 2019 - Glycemic Short BSG Results (Last 24 hours): 08/06/19 08/06/19 08/07/19 16:03 21:20 07:35 Glucose 61 L POC Glucose 204 H 162 H 08/07/19 08/07/19 08/07/19 08:04 08:08 08:33 Glucose POC Glucose 59 L* 56 L* 92 08/07/19 12:30 Glucose POC Glucose 207 H OUTPATIENT ANTIDIABETIC REGIMEN: Updated info-> Doses per patient: * Lantus 100 units SC BID * Novolog 60 units SC TID (CF: 5 for BSG > 150) * BSGs range from 100-300s with no hypoglycemia * A1c = 9.6 % on 08/05/19 ASSESSMENT: * Pt received 240 units of insulin yesterday (120 units of basal and 120 units of bolus) * BSG improvement seen after Novolog was tightened yesterday to CF/CR: 01/08. Will continue same for today. * Fasting BSG was below goal; 59 mg/dL. Decrease basal insulin by 25%. PLAN FOR INPATIENT GLYCEMIC CONTROL: * Basal insulin * Lantus 45 units SQ in two different locations at the same time for a total of 90 units q24 hours * Bolus insulin * NovoLog per scale ACHS or Q6hrs while NPO * Goal Range: Low 110 mg/dL - High 150 mg/dL * Correction Factor: 7 mg/dL/unit * Nutritional / Prandial insulin per carb ratio of 1 unit per 2 grams CHO consumed
--- NOTE | 2019-08-07 16:53 | Hospitalist Progress Note ---
Date of Service August 07, 2019 Assessment & Plan (1) Respiratory failure with hypoxia: 78 yo M with PMH CAD, hypertension, diabetic nephropathy, dyslipidemia, diabetes mellitus with retinopathy, peripheral neuropathy, paroxysmal V. tach, PAD, lumbar disc disease, CKD stage III, permanent atrial fibrillation and intracranial hemorrhage presents with increasing SOB found to have bilateral consolidative pneumonia on CXR. Acute respiratory failure with hypoxia/bilateral consolidative pneumonia -CXR- Cardiomegaly with pulmonary edema. Small pleural effusions with infrahilar and bibasilar consolidative opacities -Continue Zosyn IV , will covert to PO tomorrow (Augmentin 875mg BID for 4 additional days) -Nasal MRSA neg, dc vancomycin IV -Duonebs every 4 hours while awake and every 2 hours when necessary -Pulmicort Respules 0.5 mg inhaled twice daily -Guaifenesin extended release 60 mg p.o. twice daily -Sputum Gram stain and culture - NGTD -Taper oxygen as symptoms improve, currently sating well on 2L [place]. No home O2 requirement [employer] -repeat CXR in AM Confusion -Head CT- No acute intracranial abnormality or calvarial fracture -Secondary to acute hypoxic respiratory process CAD/HTN/Afib/elevated troponin -Troponins 0.046 upon admission, repeat 0.730, 0.0561, likely supply demand type II. -Continue atorvastatin, metoprolol tartrate, Xarelto with hold parameters - increased spironolactone 25mg BID today (home dose). Cont Losartan 12.5 ([employer] 25, will change to home dose tomorrow baring pressures). 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 Restarted as above and repleted with 40 meq PO -daily BMP FEN/GI: HH/DM2 Diet DVT Prophylaxis: Xarelto DNR/DNI Dispo: Med surg. PT/OT evals ongoing. Anticipate d/c home tomorrow. Supervising Physician Co-Signing Physician Notes I saw the patient with Dr. Mandel and confirmed bell portions of the history and exam. I agree with the impression and plan as noted above. Mr. Goodrich feels much better today. He is actually quite talkative and interactive. He states that his breathing is improved compared to yesterday. Respiratory Failure with hypoxia Pneumonia Chest x-ray shows interval improvement in bibasilar consolidation; mild pulmonary edema Leukocytosis is improving; symptomatically he is improving Continue antibiotics. Consult physical therapy CAD Chronic Diastolic CHF Continue Lasix Increase Aldactone to 25 mg p.o. twice daily (his home dose) Restart metolazone 2.5 mg p.o. daily (his home dose) Continue losartan 12.5 mg daily Hypokalemia, mild Replete Increase in Aldactone should help as well A-Fib Continue home medications Chronic anticoagulation DM Jardiance 10 mg was added at 08/01/19 outpatient visit, although does not look as if patient started yet Subjective 78 yo M found in bed this AM in NAD. No overnight events. Tolerating PO intake. Breathing improved from admission. Pt with no other acute concerns or complaints. Review of Systems Review of Systems: All systems reviewed & are unremarkable except as noted in HPI & below Physical Exam Constitutional: WD/WN, vitals as above Eyes: PERRL, conjunctivae normal, anicteric sclerae ENMT: external ear and nose normal, oropharynx normal Respiratory: normal respiratory effort; no respiratory distress Auscultation: + diminished lung sounds (bases b/l) Cardiovascular: RRR, no murmur, no edema Gastrointestinal (Abdomen): normal bowel sounds, soft, nontender, no hepatosplenomegaly Skin: no rashes, warm and dry Psychiatric: A+Ox3, euthymic affect Results & Data Vital Signs (Past 12 Hours) Vital Signs Temp Pulse Pulse Resp BP Pulse Ox 08/07/19 15:31 36.5 C 84 18 103/53 L 93 08/07/19 13:53 92 08/07/19 07:54 83 16 97 08/07/19 07:29 37.0 C 86 16 113/65 100 Laboratory Results Laboratory Results - last 24 hr 08/06/19 08/07/19 08/07/19 21:20 07:35 07:35 WBC 12.55 H RBC 4.08 L Hgb 13.3 L Hct 40.6 L MCV 99.5 MCH 32.6 MCHC 32.8 RDW Std Deviation 49.7 H RDW Coeff of Paulo 13.8 Plt Count 247 MPV 10.9 H Immature Gran % (Auto) 0.2 Neut % (Auto) 74.9 Lymph % (Auto) 12.6 Lassen % (Auto) 10.6 Eos % (Auto) 1.5 Baso % (Auto) 0.2 Immature Gran # (Auto) 0.02 Neut # (Auto) 9.40 H Lymph # (Auto) 1.58 Lassen # (Auto) 1.33 H Eos # (Auto) 0.19 Baso # (Auto) 0.03 Sodium 138 Potassium 3.2 L Chloride 95 L Carbon Dioxide 40 H Anion Gap 3.0 BUN 22 H Creatinine 1.10 Est Cr Clr Drug Dosing 72.8 Est GFR ( Amer) 73.6 Est GFR (Non-Af Amer) 63.5 BUN/Creatinine Ratio 20.1 H Glucose 61 L POC Glucose 162 H Calcium 9.7 08/07/19 08/07/19 08/07/19 08:04 08:08 08:33 WBC RBC Hgb Hct MCV MCH MCHC RDW Std Deviation RDW Coeff of Paulo Plt Count MPV Immature Gran % (Auto) Neut % (Auto) Lymph % (Auto) Lassen % (Auto) Eos % (Auto) Baso % (Auto) Immature Gran # (Auto) Neut # (Auto) Lymph # (Auto) Lassen # (Auto) Eos # (Auto) Baso # (Auto) Sodium Potassium Chloride Carbon Dioxide Anion Gap BUN Creatinine Est Cr Clr Drug Dosing Est GFR ( Amer) Est GFR (Non-Af Amer) BUN/Creatinine Ratio Glucose POC Glucose 59 L* 56 L* 92 Calcium 08/07/19 12:30 WBC RBC Hgb Hct MCV MCH MCHC RDW Std Deviation RDW Coeff of Paulo Plt Count MPV Immature Gran % (Auto) Neut % (Auto) Lymph % (Auto) Lassen % (Auto) Eos % (Auto) Baso % (Auto) Immature Gran # (Auto) Neut # (Auto) Lymph # (Auto) Lassen # (Auto) Eos # (Auto) Baso # (Auto) Sodium Potassium Chloride Carbon Dioxide Anion Gap BUN Creatinine Est Cr Clr Drug Dosing Est GFR ( Amer) Est GFR (Non-Af Amer) BUN/Creatinine Ratio Glucose POC Glucose 207 H Calcium Medications Administered Current Inpatient Medications Acetaminophen (Tylenol) 650 mg PO Q4H PRN PRN Reason: Pain or Fever Stop: 09/04/19 23:50 Aspirin (Ecotrin Ectab) 81 mg PO QAM [facility] Stop: 09/04/19 08:59 Last Admin: 08/07/19 08:56 Dose: 81 mg Documented by: Atorvastatin Calcium (Lipitor) 80 mg PO DAILY [facility] Stop: 09/04/19 08:59 Last Admin: 08/07/19 08:55 Dose: 80 mg Documented by: Budesonide (Pulmicort Respules) 0.5 mg NEB BIDR [facility] Stop: 09/04/19 06:59 Last Admin: 08/07/19 07:52 Dose: 0.5 mg Documented by: Dextrose (Dextrose 50%) 25 - 50 ml IV UD PRN; Protocol PRN Reason: Hypoglycemia Protocol Stop: 09/04/19 14:42 Duloxetine HCl (Cymbalta) 60 mg PO DAILY [facility] Stop: 09/04/19 08:59 Last Admin: 08/07/19 08:55 Dose: 60 mg Documented by: Furosemide (Lasix) 40 mg PO QAM [facility] Stop: 09/04/19 09:44 Last Admin: 08/07/19 08:56 Dose: 40 mg Documented by: Gabapentin (Neurontin) 600 mg PO BID [facility] Stop: 09/04/19 08:59 Last Admin: 08/07/19 08:56 Dose: 600 mg Documented by: Glucagon (Glucagen) 1 mg SQ UD PRN; Protocol PRN Reason: Hypoglycemia Protocol Stop: 09/04/19 14:42 Glucose (Dex4 Glucose) 4 - 8 tabs PO UD PRN; Protocol PRN Reason: Hypoglycemia Protocol Stop: 09/04/19 14:42 Glucose (Glucose 40%) 15 - 30 gm PO UD PRN; Protocol PRN Reason: Hypoglycemia Protocol Stop: 09/04/19 14:42 Piperacillin Sod/Tazobactam (Sod 4.5 gm/ Dextrose) 120 mls @ 28.75 mls/hr IV Q8H [facility] Stop: 08/12/19 01:59 Last Infusion: 08/07/19 15:48 Dose: Infused Documented by: Insulin Aspart (Novolog Flexpen) 0 units SC ACHS [facility] Stop: 09/04/19 16:29 Last Admin: 08/07/19 12:53 Dose: 33 units Documented by: Levetiracetam (Keppra) 500 mg PO BID [facility] Stop: 09/04/19 00:19 Last Admin: 08/07/19 08:55 Dose: 500 mg Documented by: Losartan Potassium (Cozaar) 12.5 mg PO DAILY [facility] Stop: 09/05/19 11:44 Last Admin: 08/07/19 08:55 Dose: 12.5 mg Documented by: Metolazone (Zaroxolyn) 2.5 mg PO DAILY [facility] Stop: 09/06/19 08:59 Last Admin: 08/07/19 08:54 Dose: 2.5 mg Documented by: Metoprolol Tartrate (Lopressor) 50 mg PO BID [facility] Stop: 09/04/19 00:19 Last Admin: 08/07/19 08:55 Dose: 50 mg Documented by: Miscellaneous (Carbohydrates For Hypoglycemia) 15 - 30 gm PO UD PRN PRN Reason: Hypoglycemia Protocol Stop: 09/04/19 14:42 Miscellaneous Information (Consult) 1 ea N/A UD PRN PRN Reason: Consult Stop: 09/04/19 00:19 Miscellaneous Information (Consult Glycemic Management Pharmacy) 1 ea N/A UD PRN PRN Reason: Consult Stop: 09/04/19 15:12 Ondansetron HCl (Zofran) 4 mg IV Q6H PRN PRN Reason: Nausea Stop: 09/04/19 00:19 Rivaroxaban (Xarelto) 15 mg PO DAILY [facility] Stop: 09/04/19 08:59 Last Admin: 08/07/19 08:56 Dose: 15 mg Documented by: Spironolactone (Aldactone) 25 mg PO BID [facility] Stop: 09/06/19 20:59 Tramadol HCl (Ultram) 50 mg PO Q4H PRN PRN Reason: Pain Stop: 09/04/19 23:49 Last Admin: 08/06/19 00:30 Dose: 50 mg Documented by: Resident Activity Tracking Resident Involvement: Resident Care Provided Care Provided: Adult Hospital Medicine (1) Respiratory failure with hypoxia Chronicity: unspecified Qualified Code(s): J96.91 - Respiratory failure, unspecified with hypoxia
--- NOTE | 2019-08-07 17:18 | XRay Report ---
XR chest 2V PA/lateral CLINICAL HISTORY: Pleural effusions COMPARISON STUDY: 08/06/2019 FINDINGS: There are postsurgical changes of a midline sternotomy. There is a left subclavian pacer/de fibrillator. The heart remains enlarged. There is continued evidence for pulmonary vascular congestio n/failure. There are small bilateral pleural effusions, slightly diminished in size when compared the preceding study. Right basilar airspace opacities, likely representing compressive atelectasis. Ther e is improved aeration lung bases.[ IMPRESSION: 1. Cardiomegaly with radiographic evidence of congestive failure/fluid overload 2. Decreasing small pleural effusions with improved aeration of the lung bases ACT 112: Negative or not required by law. Electronically signed by: Shemar Santos M.D. 08/07/2019 5:17 PM
--- NOTE | 2019-08-07 17:30 | Electrocardiogram Report ---
Test Reason : Blood Pressure : / mmHG Vent. Rate : 083 BPM Atrial Rate : 000 BPM P-R Int : 000 ms QRS Dur : 142 ms QT Int : 422 ms P-R-T Axes : 000 -14 119 degrees QTc Int : 495 ms Atrial fibrillation Left bundle branch block Abnormal ECG When compared with ECG of 05-AUG-2019 06:42, Questionable change in QRS axis Confirmed by Humza Guerra ([id number] on 08/07/2019 5:29:32 PM Referred By: REFERRED SELF Confirmed By:Alberto Guerra
[2019-08-07] MEDS: INSULIN GLARGINE 100 UNIT/ML VIAL SC SCH ×2 (18:03→18:11)
[2019-08-08] MEDS ORDERED: INSULIN ASPART 100 UNITS/ML 3 ML PEN SC SCH
[2019-08-08] MEDS: PIPERACILLIN/TAZOBACTAM 4.5 GM in DEXTROSE 5% 100 ML IV SCH ×3 (02:00→19:17)
[2019-08-08 05:52] LABS: Basophils # (auto) 0.03 K/uL (0-0.2); Basophils % (auto) 0.3 %; Eosinophils # (auto) 0.24 K/uL (0-0.5); Eosinophils % (auto) 2.1 %; Hemoglobin 14.3 g/dL (14.0-18.0); Immature Granulocytes # (auto) 0.02 K/uL (0.00-0.02); Immature Granulocytes % (auto) 0.2 %; Lymphocytes # (auto) 1.55 K/uL (1.2-3.4); Lymphocytes % (auto) 13.7 %; Mean Corpuscular Hemoglobin 32.9 pg (25-34); Mean Corpuscular Hgb Conc 33.3 g/dL (32-36); Mean Corpuscular Volume 99.1 fL (80-100); Mean Platelet Volume 10.9 fL (7.4-10.4); Monocytes # (auto) 1.37 K/uL (0.11-0.59); Monocytes % (auto) 12.1 %; Neutrophils # (auto) 8.13 K/uL (1.4-6.5); Neutrophils % (auto) 71.6 %; Platelet Count 256 K/uL (130-400); RDW Coefficient of Variation 13.6 % (11.5-14.5); RDW Standard Deviation 48.9 fL (36.4-46.3); Red Blood Count 4.34 M/uL (4.7-6.1); White Blood Count 11.34 K/uL (4.8-10.8)
[2019-08-08 06:31] LABS: BUN Creatinine Ratio 19.2 (10-20); Calcium 9.8 mg/dl (8.5-10.1); Creatinine Clr Calc Pharmacy 72.8 ml/min; Est GFR (African American) 73.6; Est GFR (Non-African American) 63.5; Potassium 3.1 mmol/L (3.5-5.1)
[2019-08-08] MEDS ORDERED: POTASSIUM CHLORIDE 20 MEQ TABCR PO STA (07:04)
[2019-08-08] MEDS: BUDESONIDE 0.5 MG/2 ML VIAL (PULMICORT) NEB SCH ×2 (07:33→19:33)
--- NOTE | 2019-08-08 07:36 | XRay Report ---
XR chest 1V portable CLINICAL HISTORY: Congestive failure. Follow-up study. COMPARISON STUDY: 08/07/2019 FINDINGS: There are postsurgical changes of a midline sternotomy. The heart is enlarged. There is a l eft subclavian pacer/defibrillator present. There is continued radiographic evidence of mild congesti ve failure/fluid overload. There is a persistent right pleural effusion with increasing right lower l obe atelectasis/consolidation. Minor left basilar airspace opacities, likely atelectatic or also pres ent. There is a suspected small subpulmonic left pleural effusion[ IMPRESSION: 1. Cardiomegaly with continued radiographic evidence of congestive failure/fluid overload 2. Probable slight increase in the size of the right pleural effusion with worsening right lower lobe atelectasis/consolidation ACT 112: Negative or not required by law. Electronically signed by: Shemar Santos M.D. 08/08/2019 7:35 AM
[2019-08-08] MEDS: levETIRAcetam 500 MG TAB PO SCH (07:50)
[2019-08-08] MEDS: SPIRONOLACTONE 25 MG TAB PO SCH (07:50)
[2019-08-08] MEDS: metOLazone 2.5 MG TABLET PO SCH (07:50)
[2019-08-08] MEDS: METOPROLOL TARTRATE 50 MG TAB PO SCH (07:51)
[2019-08-08] MEDS: ASPIRIN 81 MG ECTAB PO SCH (07:51)
[2019-08-08] MEDS: GABAPENTIN 300 MG CAP PO SCH (07:51)
[2019-08-08] MEDS: RIVAROXABAN 15 MG TAB PO SCH (07:51)
[2019-08-08] MEDS: FUROSEMIDE 40 MG TAB PO SCH (07:51)
[2019-08-08] MEDS: DULOXETINE HCL 60 MG CAP PO SCH (07:52)
[2019-08-08] MEDS: ATORVASTATIN 40 MG TAB PO SCH (07:52)
[2019-08-08] MEDS: INSULIN ASPART 100 UNITS/ML 3 ML PEN SC SCH ×3 (08:50→17:58)
[2019-08-08] MEDS ORDERED: LOSARTAN POTASSIUM 25 MG TAB PO SCH (09:00)
--- NOTE | 2019-08-08 14:56 | Pharmacy Report ---
Pharmacy Glycemic Short Note 2 - Date of Service August 08, 2019 - Glycemic Short BSG Results (Last 24 hours): 08/07/19 08/07/19 08/07/19 17:22 17:25 17:48 Glucose POC Glucose 65 L* 59 L* 75 08/07/19 08/07/19 08/08/19 20:39 23:54 04:01 Glucose POC Glucose 142 H 110 H 123 H 08/08/19 08/08/19 08/08/19 05:39 07:58 12:04 Glucose 84 POC Glucose 89 158 H OUTPATIENT ANTIDIABETIC REGIMEN: Updated info-> Doses per patient: * Lantus 100 units SC BID * Novolog 60 units SC TID (CF: 5 for BSG > 150) * BSGs range from 100-300s with no hypoglycemia * A1c = 9.6 % on 08/05/19 ASSESSMENT: 08/08 * Patient received total of 132 units of insulin yesterday, of which 90 were basal insulin * Fasting BSG this am 84 mg/dL - lower end of range ; plan to titrate back further on basal insulin * Adjusted CR to 3 this morning as BSGs for lunch typically elevated. Had become hypoglycemic with CR of 2 * Patient's BSGs requirements much less from 08/06-08/07 / Unclear why requirements changing so much. Will try and split more 50/50 with basal bolus dosing 08/07 * Pt received 240 units of insulin yesterday (120 units of basal and 120 units of bolus) * BSG improvement seen after Novolog was tightened yesterday to CF/CR: 7/2. Will continue same for today. * Fasting BSG was below goal; 59 mg/dL. Decrease basal insulin by 25%. PLAN FOR INPATIENT GLYCEMIC CONTROL: * Basal insulin * Lantus 35 units SQ in two different locations at the same time for a total of 70 units q24 hours * Bolus insulin * NovoLog per scale ACHS or Q6hrs while NPO * Goal Range: Low 110 mg/dL - High 150 mg/dL * Correction Factor: 12 mg/dL/unit * Nutritional / Prandial insulin per carb ratio of 1 unit per 3 grams CHO consumed
[2019-08-08] MEDS ORDERED: INSULIN GLARGINE 100 UNIT/ML VIAL SC SCH ×2 (18:00)
[2019-08-08] MEDS ORDERED: INSULIN ASPART PER UNIT SC STA (18:00)
[2019-08-08] MEDS: INSULIN GLARGINE 100 UNIT/ML VIAL SC SCH ×2 (18:17→18:19)
--- NOTE | 2019-08-08 18:32 | Discharge Summary ---
Date of Service August 08, 2019 Admission HPI Per Admitting Provider The patient is a 78-year-old male with past medical history including CAD, hypertension, diabetic nephropathy,, dyslipidemia, diabetes mellitus with retinopathy, peripheral neuropathy, paroxysmal V. tach, PAD, lumbar disc disease, CKD stage III, permanent atrial fibrillation and intracranial hemorrhage. The patient presents to the emergency department with increasing confusion and difficulty breathing. Clinical examination and imaging studies show a bibasilar consolidative pneumonia. Patient was placed on BiPAP the emergency department, and has improved oxygenation and comfort of breathing at this time. Principal Diagnosis pna Discharge Exam Constitutional WD/WN, vitals as above Eyes PERRL, conjunctivae normal, anicteric sclerae ENMT external ear and nose normal, oropharynx normal Respiratory normal respiratory effort; no respiratory distress Auscultation: + diminished lung sounds (bases b/l) Cardiovascular RRR, no murmur, no edema Gastrointestinal (Abdomen) normal bowel sounds, soft, nontender, no hepatosplenomegaly Skin no rashes, warm and dry Psychiatric A+Ox3, euthymic affect Discharge Data Allergies Allergy/AdvReac Type Severity Reaction Status Date / Time No Known Drug Allergies Allergy Unknown NKDA Verified 08/04/19 20:36 Consultations 08/04/19 22:22 ED Decision to Admit Stat 08/05/19 00:20 Consult Case Management - Discharge Planning Routine Ordered Studies 08/04/19 21:20 CT head/brain wo con Stat Hospital Course (1) Respiratory failure with hypoxia: 78 yo M with PMH CAD, hypertension, diabetic nephropathy, dyslipidemia, diabetes mellitus with retinopathy, peripheral neuropathy, paroxysmal V. tach, PAD, lumbar disc disease, CKD stage III, permanent atrial fibrillation and intracranial hemorrhage presents with increasing SOB found to have bilateral consolidative pneumonia on CXR. The following is the medical managment during stay here: Acute respiratory failure with hypoxia/bilateral consolidative pneumonia -CXR- Cardiomegaly with pulmonary edema. Small pleural effusions with infrahilar and bibasilar consolidative opacities -Continued Zosyn IV here. On d/c, pt to cont Augmentin 875mg BID for 3 additional days -Nasal MRSA neg -Duonebs every 4 hours while awake and every 2 hours when necessary -Pulmicort Respules 0.5 mg inhaled twice daily -Guaifenesin extended release 60 mg p.o. twice daily -Sputum Gram stain and culture - NGTD -Currently sating well on 2L Oxymask. 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 We got a 2- step on day of d/c, and was recommended home O2. This was set up for pt and he will cont NC O2 at home Metabolic Encephalopathy -resolved -Head CT- No acute intracranial abnormality or calvarial fracture -Secondary to acute hypoxic respiratory process CAD/HTN/Afib/elevated troponin -Troponins 0.046 upon admission, repeat 0.730, 0.0561, likely supply demand type II. -Continue atorvastatin, metoprolol tartrate, Xarelto with hold parameters -by time of d/c, pt was on home dosage of spironolactone 25mg BID, Losartan 25 mg, furosemide 40 mg, metolazone 2.5 mg Uncontrolled type 2 diabetes mellitus with retinopathy -long-term current use of insulin -Placed on Accu-Cheks before meals and at bedtime/every 4 hours with NovoLog coverage per scale Hypokalemia -likely in setting of holding home spironolactone. Restarted as above and repleted with 40 meq PO Pt going home with home 02. At time of d/c, pt had no other acute concerns or complaints. Total Time Total Time Spent Total Time Spent (In Minutes): 30 Discharge Plan Discharge Items Patient Disposition: Home - Self-Care Reason For Visit: ACUTE RESP FAIL. W/ HYPOXIA/HYPERCAPNEA, BILAT PNE Discharge Diagnosis: pneumonia Activity: Per Instructions section Non-emergency contact: Primary Care Provider Call non-emergency contact if: you have any medication questions, your symptoms worsen and your temperature is above 101.5 Follow-up/Referrals: Ron Aguilera MD [Primary Care Provider] - Diet: Carb Consistent or DM2 and Heart Healthy Addtl Attending Provider Instructions: You were admitted with concerns of shortness of breath and found to have pneumonia. Please follow the below instructions on discharge: -You will continue antibiotic Augmentin for 3 additional days -You will require home oxygen to help keep your oxygen numbers up. This will be arranged for you -please follow up with your PCP within one week of discharge Pending Studies at Discharge: No Stand-Alone Forms: My [employer], Smoking Cessation Medications and DC Order Prescriptions: Continued pantoprazole 40 mg tablet,delayed release (DR/EC) 40 mg PO BID Qty: 180 RF: 1 atorvastatin 80 mg tablet 80 mg PO DAILY Qty: 90 RF: 3 gabapentin 300 mg capsule 600 mg PO BID Qty: 30 RF: 0 duloxetine 60 mg capsule,delayed release(DR/EC) 60 mg PO DAILY Qty: 90 RF: 1 metolazone 2.5 mg tablet See Rx Instructions .ROUTE .COMPLEX Qty: 90 RF: 4 furosemide 40 mg tablet 40 mg PO DAILY Qty: 90 RF: 3 Xarelto 15 mg tablet 15 mg PO DAILY Qty: 90 RF: 3 levetiracetam 500 mg tablet 500 mg PO BID Qty: 180 RF: 4 (DME) FreeStyle Lite Strips strip See Dose Instructions .ROUTE .MEDSUPPLY Qty: 350 RF: 3 metoprolol tartrate 50 mg tablet 50 mg PO BID Qty: 180 RF: 3 Jardiance 10 mg tablet 10 mg PO DAILY Qty: 30 RF: 5 docusate sodium 100 mg capsule 100 mg PO BID PRN (Reason: Constipation) RF: 0 hydrocortisone-pramoxine 2.5-1 % cream 1 appln MO BID PRN (Reason: itching) Qty: 30 RF: 0 lidocaine [Lidoderm] 5 % adhesive patch,medicated 1 patch TOP DAILY Qty: 90 RF: 0 (DME) lancets [FreeStyle Lancets] 28 gauge misc See Dose Instructions .ROUTE .MEDSUPPLY Qty: 25 RF: 0 fluorouracil 5 % cream 1 appln TOP ONCE 28 Days Qty: 40 RF: 0 Novolog U-100 Insulin aspart 100 unit/mL solution See Rx Instructions SQ TID MDD 240 units Qty: 22 RF: 3 Lantus U-100 Insulin 100 unit/mL solution 120 units subcut BID 90 Days Qty: 22 RF: 3 spironolactone 25 mg Tablet 25 mg PO BID RF: 0 montelukast 10 mg Tablet 10 mg PO PM RF: 0 cholecalciferol (vitamin D3) 1,000 unit Capsule 1,000 unit PO QAM RF: 0 nitroglycerin [Nitrostat] 0.4 mg tablet, sublingual 0.4 mg Sublingual Q5M PRN (Reason: Chest Pain) RF: 0 aspirin 81 mg Tablet,Delayed Release (Dr/Ec) 81 mg PO QAM RF: 0 losartan 25 mg Tablet 25 mg PO DAILY RF: 0 Discharge Orders: Discharge Order (Routine); Ordered 08/08/19 Ordered By: Ole Rangel/Other Patient Handouts: Oxygen Home Use Admission Data Admit Date/Time: 08/04/19 23:22 Attending Provider: Cj Marmolejo Admit Provider: Modesto Turpin Primary Care Provider: Ron Aguilera Other Providers: Modesto Turpin Other Interventions: Discharge Summary Assessment (RN) Last Done: 08/08/19 16:42 DC Date/Time DO NOT enter until pt leaves facility: 08/08/19 19:40 Supervising Physician Co-Signing Physician Notes I saw the patient with Dr. Mandel and confirmed bell portions of the history and exam. I agree with the impression and plan as noted above. Mr. Goodrich feels much better today. He initially declined home oxygen but after further consideration he is willing to accept home oxygen. Respiratory Failure with hypoxia Pneumonia Home oxygen Complete antibiotic course utilizing Augmentin 805 mg p.o. twice daily Follow-up with PCP CAD Chronic Diastolic CHF Continue home dosages of Lasix, Aldactone, metolazone, and losartan Hypokalemia, mild Repleted Monitor as outpatient A-Fib Continue home medications Chronic anticoagulation DM Jardiance 10 mg was added at 08/01/19 outpatient visit, although does not look as if patient started yet PC follow-up upon discharge Resident Activity Tracking Resident Involvement: Resident Care Provided Care Provided: Adult Hospital Medicine
[2019-08-09] MEDS ORDERED: INSULIN ASPART 100 UNITS/ML 3 ML PEN SC SCH
== END 2019-08-08 19:40 | disposition home or self-care (01) | DRG 193 ==
LOC: ED 19:56 → SUATTDRO 23:22 → 2S 23:22 → 2W 08-06 13:51 → 3W 08-07 02:50

== ENCOUNTER 2019-09-20 21:22 | Inpatient (IN) ==
[2019-09-20] MEDS ORDERED: ACETAMINOPHEN 1000 MG/100 ML IV IV ONE (21:49)
[2019-09-20] MEDS ORDERED: SODIUM CHLORIDE 0.9% 1000ML 1,000 ML IV ONE (21:51)
[2019-09-20] MEDS ORDERED: ACETAMINOPHEN 500 MG TAB PO STA (21:52)
[2019-09-20] MEDS ORDERED: VANCOMYCIN HCL 2,000 MG in SODIUM CHLORIDE 0.9% 500 ML IV ONE (21:54)
[2019-09-20] MEDS ORDERED: PIPERACILL/TAZOBAC CONSULT ACTIVE PRN (21:54)
[2019-09-20] MEDS ORDERED: VANCOMYCIN CONSULT ACTIVE PRN (21:54)
[2019-09-20] MEDS ORDERED: PIPERACILLIN/TAZOBACTAM 4.5 GM/120 ML BAG IV ONE (21:54)
[2019-09-20] MEDS ORDERED: ACETAMINOPHEN 1,000 MG/100 ML VIAL IV STA (21:56)
[2019-09-20 22:01] LABS: Hematocrit (blood only) 48.5 % (42-52); Hemoglobin 16.1 g/dL (14.0-18.0); Mean Corpuscular Hemoglobin 32.9 pg (25-34); Mean Corpuscular Hgb Conc 33.2 g/dL (32-36); Mean Platelet Volume 11.3 fL (7.4-10.4); Platelet Count 332 K/uL (130-400); RDW Coefficient of Variation 13.8 % (11.5-14.5); RDW Standard Deviation 49.8 fL (36.4-46.3); White Blood Count 26.23 K/uL (4.8-10.8)
[2019-09-20] MEDS ORDERED: ALBUT/IPRATROP 3MG/0.5MG NEB 3 ML VIAL NEB STA (22:02)
--- NOTE | 2019-09-20 22:05 | XRay Report ---
XR chest 1V portable CLINICAL HISTORY: SEPSIS COMPARISON STUDY: 08/08/2019 FINDINGS: The heart is enlarged. There is a left subclavian pacer/defibrillator. There are postsurgic al changes of a midline sternotomy. There are bilateral pulmonary airspace opacities. Diagnostic cons iderations include pulmonary edema versus a bilateral pneumonia. There are no large pleural effusions .[ IMPRESSION: Bilateral pulmonary airspace opacities, likely representing pulmonary edema. A bilateral pneumonia could appear similar. Clinical and radiographic follow-up is recommended. ACT 112: Negative or not required by law. Electronically signed by: Shemar Santos M.D. 09/20/2019 10:03 PM
[2019-09-20 22:14] LABS: INR 1.2 (0.9-1.1); Partial Thromboplastin Ratio 1.2; Partial Thromboplastin Time 33.1 Seconds (21.0-31.0); Prothrombin Time 12.8 Seconds (9.0-12.0)
[2019-09-20 22:16] LABS: Alanine Aminotransferase 19 U/L (12-78); Albumin Level 3.7 gm/dl (3.4-5.0); Aspartate Aminotransferase 11 U/L (15-37); BUN Creatinine Ratio 20.1 (10-20); Blood Urea Nitrogen 32 mg/dl (7-18); Calcium 9.5 mg/dl (8.5-10.1); Carbon Dioxide 31 mmol/L (21-32); Chloride 102 mmol/L (98-107); Est GFR (African American) 47.5; Glucose 258 mg/dl (70-99); Magnesium 1.9 mg/dl (1.8-2.4); Potassium 4.3 mmol/L (3.5-5.1); Sodium 138 mmol/L (136-145)
--- NOTE | 2019-09-20 22:25 | Emergency Department Note ---
History of Present Illness General Chief complaint: Illness Stated complaint: CONFUSION, History of Present Illness Maximum Pain Intensity: 6 This 78-year-old presents to the ER complaining of cough, dyspnea increased confusion Location: Generalized Quality: Confused Severity: Moderate Duration: Past few days Timing: Started a few days ago Context: Symptoms got acutely worse tonight and family called EMS Modifying factors: better with oxygen; worse with activity Patient was hospitalized in July for pneumonia or CHF. Family states symptoms seem similar. states he is had slurred speech for the past few days. Tonight when she got home he was acutely confused and was feeling ill. She summoned EMS. EMS states his O2 sats were in the 70s. He was tachycardic and febrile. Patient complains of feeling short of breath with chills and cough. Patient denies chest pain, abdominal pain, vomiting, diarrhea. Patient is a DNR. This is verified with family. Home Medications Home Medications Medication Instructions Recorded Confirmed Type cholecalciferol (vitamin D3) 1,000 unit PO QAM 05/15/18 09/03/19 History spironolactone 25 mg PO BID 05/15/18 09/03/19 History aspirin 81 mg PO QAM 06/04/18 09/03/19 History losartan 25 mg PO DAILY 12/16/18 09/03/19 History docusate sodium 100 mg capsule 100 mg PO BID PRN 01/09/19 09/03/19 History hydrocortisone-pramoxine 2.5 %-1 % 1 appln ND BID PRN #30 gm 01/09/19 09/03/19 Rx rectal cream lidocaine 5 % topical patch 1 patch TOP DAILY #90 ea 01/09/19 09/03/19 Rx lancets 28 gauge #25 ea 02/25/19 09/03/19 History nitroglycerin 0.4 mg sublingual 0.4 mg SUBLINGUAL Q5M PRN tab 02/25/19 09/03/19 History tablet Novolog U-100 Insulin aspart 100 See Rx Instructions SQ TID #22 03/04/19 09/03/19 Rx unit/mL subcutaneous solution vial NS MDD 240 units Lantus U-100 Insulin 100 unit/mL 120 units SUBCUT BID 90 Days #22 03/07/19 09/03/19 Rx subcutaneous solution vial NS atorvastatin 80 mg tablet 80 mg PO DAILY #90 tab 03/19/19 09/03/19 Rx gabapentin 300 mg capsule 600 mg PO BID #30 cap 03/19/19 09/03/19 Rx duloxetine 60 mg capsule,delayed 60 mg PO DAILY #90 cap 03/29/19 09/03/19 Rx release metolazone 2.5 mg tablet See Rx Instructions .ROUTE 04/11/19 09/03/19 Rx .COMPLEX #90 tablet furosemide 40 mg tablet 40 mg PO DAILY #90 tab 04/24/19 09/03/19 Rx rivaroxaban 15 mg tablet 15 mg PO DAILY #90 tab 05/31/19 09/03/19 Rx blood sugar diagnostic #350 ea 07/05/19 09/03/19 Rx levetiracetam 500 mg tablet 500 mg PO BID #180 tab 07/05/19 09/03/19 Rx fluorouracil 5 % topical cream 1 appln TOP ONCE 28 Days #40 gm 07/08/19 09/03/19 Rx metoprolol tartrate 50 mg tablet 50 mg PO BID #180 tab 07/15/19 09/03/19 Rx potassium chloride 10 mEq 10 meq PO DAILY #90 cap 08/14/19 09/03/19 Rx capsule,extended release pantoprazole 40 mg tablet,delayed 40 mg PO BID #180 tab 08/20/19 09/03/19 Rx release empagliflozin 10 mg tablet 10 mg PO DAILY #90 tab 08/28/19 09/03/19 Rx montelukast 10 mg tablet 10 mg PO PM #90 tab 09/18/19 Rx Allergies Allergy/AdvReac Type Severity Reaction Status Date / Time No Known Drug Allergies Allergy Unknown NKDA Verified 09/20/19 23:16 Past Med/Surg History Medical History Actinic keratosis (Acute) Adult situational stress disorder (Acute) Anxiety Atrial fibrillation FOLLOWS W/ TERESA C4 cervical fracture (Acute) CAD (coronary artery disease) Carotid artery stenosis, asymptomatic (Acute) Chronic kidney disease, stage III (moderate) (Acute) Depression Diabetes (Chronic) Diabetes mellitus IDDM Enlarged prostate without lower urinary tract symptoms (luts) (Acute) External hemorrhoids (Acute) Gait disturbance (Acute) Gastroparesis (Acute) GERD (gastroesophageal reflux disease) Hearing deficit CHENEGA 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 BRAIN BLEED + SKULL/FACIAL FRACTURES. RESOLVED W/O SURGICAL INTERVENTION. [facility] ER --> SUMMER BOND BY AIR. 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 MOORE Insomnia (Acute) Kidney disease (Chronic) FOLLOWS W/ [place] [facility]PHRO Leukocytosis (Acute) Lumbar disc disease (Acute) Obesity (BMI 35.0-39.9 without comorbidity) (Acute) Osteoarthritis PAD (peripheral artery disease) (Acute) Paroxysmal ventricular tachycardia (Acute) Peripheral neuropathy (Acute) Poor historian HISTORY OBTAINED FROM DTR - [facility] Rheumatoid nodule of left knee (Acute) Sinus bradycardia (Acute) Situational depression (Acute) Sleep apnea REFUSES CPAP/OXYGEN Subdural hematoma (Acute) Syncope (Acute) 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, with long-term current use of insulin (Acute) Uncontrolled type 2 diabetes mellitus with neurologic complication, with long- term current use of insulin (Acute) 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 History of cataract surgery History of cholecystectomy History of heart artery stent History of knee replacement LEFT Hx of CABG 2004. # VESSELS? 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 Beliefs That Will Affect Care: None marital status: Current Living Situation: Spouse Feels Safe at Home: Yes Smoking Status: Former smoker Tobacco Type: cigarettes ; Second Hand Exposure: No ; Hx Alcohol Use: No Hx Substance Use: No Review of Systems A total of 10 systems reviewed and were otherwise negative Physical Exam Vital Signs Vital Signs - 24 hr 09/20/19 21:15 09/20/19 21:48 09/20/19 22:00 Temperature 39.1 C H Temperature Source Oral Pulse Rate 127 H 127 H 114 H Pulse Rate [Right Radial] Pulse Rate from SpO2 Sensor 110 H Respiratory Rate 38 H 39 H 18 Respiratory Effort / Characteristics Labored Spontaneous Labored Respiratory Depth Normal Respiratory Pattern Tachypnea Blood Pressure 164/103 H Blood Pressure Mean 123 Pulse Oximetry 92 94 97 Oxygen Delivery Method Nasal Cannula BiPAP Oxygen Flow Rate 15 Fraction of Inspired Oxygen 75 75 Sepsis Recent Fever Within 48 Hours Yes Sepsis New/Unexplained Change in Mental Status Yes Sepsis Action Taken by Nursing Physician Notified 09/20/19 22:11 09/20/19 22:13 09/20/19 22:17 Temperature Temperature Source Pulse Rate 107 H 116 H Pulse Rate [Right Radial] 107 H Pulse Rate from SpO2 Sensor 117 H Respiratory Rate 36 H 36 H 34 H Respiratory Effort / Characteristics Spontaneous Labored Spontaneous Labored Respiratory Depth Normal Respiratory Pattern Tachypnea Blood Pressure 151/88 H Blood Pressure Mean 97 Pulse Oximetry 97 97 94 Oxygen Delivery Method BiPAP BiPAP Oxygen Flow Rate Fraction of Inspired Oxygen 75 75 60 Sepsis Recent Fever Within 48 Hours Sepsis New/Unexplained Change in Mental Status Sepsis Action Taken by Nursing 09/20/19 22:46 09/20/19 23:00 Temperature Temperature Source Pulse Rate 101 H 95 H Pulse Rate [Right Radial] Pulse Rate from SpO2 Sensor 106 H Respiratory Rate 28 H 25 H Respiratory Effort / Characteristics Spontaneous Labored Respiratory Depth Normal Respiratory Pattern Tachypnea Blood Pressure Blood Pressure Mean Pulse Oximetry 94 97 Oxygen Delivery Method BiPAP Oxygen Flow Rate Fraction of Inspired Oxygen 60 60 Sepsis Recent Fever Within 48 Hours Sepsis New/Unexplained Change in Mental Status Sepsis Action Taken by Nursing VITALS: Vitals are noted on the nurse's note and reviewed by myself. Vital signs febrile and tachycardic and hypoxic. GENERAL: Elderly male in acute distress working to breathe diaphoretic. He was immediately placed on BiPAP SKIN: The skin was without rashes, erythema, or bruising. HEAD: Normocephalic atraumatic. EARS: External auditory canals clear, tympanic membranes pearly robles without erythema or effusion bilaterally. EYES: Pupils equal round and reactive to light and accommodation. Conjunctivae without injection, sclerae without icterus. Extraocular movements intact. NOSE: Patent, turbinates without inflammation or discharge. No sinus tenderness. MOUTH: Mucous membranes mildly dry. Pharynx without erythema or exudate. Uvula midline. Airway patent. Tongue does not deviate. NECK: Supple without nuchal rigidity. No lymphadenopathy. No thyromegaly. Cervical spine is nontender. No JVD. HEART: Tachycardic and irregularly irregular LUNGS: Diffuse inspiratory and end expiratory wheezes, bibasilar rales + accessory muscle use. ABDOMEN: Positive bowel sounds x 4. Normal tympanic percussion. Soft, nontender, without masses or organomegaly. Hall sign negative. No guarding or rebound tenderness. No CVA tenderness MUSCULOSKELETAL: No muscle atrophy, erythema, noted. NEURO: Patient was alert and oriented to person place and time. No focal neurological deficits. Course Administered Medications Discontinued Medications Acetaminophen (Ofirmev) Confirm Administered Dose 1,000 mg IV .STK-MED ONE Stop: 09/20/19 21:50 Last Admin: 09/20/19 21:55 Dose: 1,000 mg Documented by: [id number] Acetaminophen (Tylenol) 1,000 mg PO NOW STA Stop: 09/20/19 21:53 Last Admin: 09/20/19 22:38 Dose: Not Given Documented by: [id number] Albuterol (Duoneb) 3 ml NEB NOW STA Stop: 09/20/19 22:03 Last Admin: 09/20/19 22:09 Dose: 3 ml Documented by: [id number] Sodium Chloride (Nss 1000ml) 1,000 mls @ 999 mls/hr IV .Q1H1M ONE Stop: 09/20/19 22:51 Last Infusion: 09/20/19 22:43 Dose: 0 mls/hr Documented by: [id number] Admin: 09/20/19 21:55 Dose: 999 mls/hr Documented by: [id number] Piperacillin Sod/Tazobactam Sod (Zosyn) 4.5 gm in 120 mls @ 240 mls/hr IV NOW ONE Stop: 09/20/19 22:23 Last Admin: 09/20/19 22:41 Dose: 240 mls/hr Documented by: [id number] Acetaminophen (Ofirmev) 1,000 mg in 100 mls @ 400 mls/hr IV NOW STA Stop: 09/20/19 22:10 Last Admin: 09/20/19 22:38 Dose: Not Given Documented by: [id number] Critical Care Time I have personally spent 35 minutes of critical care time in the direct management of this patient. This includes bedside care, interpretation of diagnostic studies, and testing, discussion with consultants, patient, and family members, and other required patient management activities. This 35 minutes is in excess of all separately billable procedures. Medical Decision Making Medical Records Attestation: I reviewed the patient's medical records. Home Medications Current Medication List: was personally reviewed by me Laboratory Data Attestation: I reviewed the patient's lab results. Result diagrams: 09/20/19 21:47 09/20/19 21:47 Lab Results 09/20/19 09/20/19 09/20/19 Range/Units 21:44 21:47 21:47 WBC 26.23 H (4.8-10.8) K/uL RBC 4.90 (4.7-6.1) M/uL Hgb 16.1 (14.0-18.0) g/dL Hct 48.5 (42-52) % MCV 99.0 (80-100) fL MCH 32.9 (25-34) pg MCHC 33.2 (32-36) g/dL RDW Std Deviation 49.8 H (36.4-46.3) fL RDW Coeff of Paulo 13.8 (11.5-14.5) % Plt Count 332 (130-400) K/uL MPV 11.3 H (7.4-10.4) fL Immature Gran % (Auto) 0.4 % Neut % (Auto) 87.7 % Lymph % (Auto) 3.8 % [place] % (Auto) 7.8 % Eos % (Auto) 0.1 % Baso % (Auto) 0.2 % Immature Gran # (Auto) 0.10 H (0.00-0.02) K/uL Neut # (Auto) 23.03 H (1.4-6.5) K/uL Lymph # (Auto) 0.99 L (1.2-3.4) K/uL [place] # (Auto) 2.04 H (0.11-0.59) K/uL Eos # (Auto) 0.03 (0-0.5) K/uL Baso # (Auto) 0.04 (0-0.2) K/uL PT (9.0-12.0) Seconds INR (0.9-1.1) APTT (21.0-31.0) Seconds PTT Ratio Sodium (136-145) mmol/L Potassium (3.5-5.1) mmol/L Chloride (98-107) mmol/L Carbon Dioxide (21-32) mmol/L Anion Gap (3-11) BUN (7-18) mg/dl Creatinine (0.6-1.4) mg/dl Est Cr Clr Drug Dosing Est GFR ( Amer) Est GFR (Non-Af Amer) BUN/Creatinine Ratio (10-20) Glucose (70-99) mg/dl Lactate (0.4-2.0) mmol/L Calcium (8.5-10.1) mg/dl Magnesium (1.8-2.4) mg/dl Total Bilirubin (0.2-1) mg/dl AST (15-37) U/L ALT (12-78) U/L Alkaline Phosphatase (45-117) U/L Troponin I (0-0.045) ng/ml Total Protein (6.4-8.2) gm/dl Albumin (3.4-5.0) gm/dl Globulin (2.5-4.0) gm/dl Albumin/Globulin Ratio (0.9-2) Procalcitonin 0.23 (0-0.5) ng/ml Influenza Type A (PCR) Neg for Influ A (Neg) Influenza Type B (PCR) Neg for Influ B (Neg) 09/20/19 09/20/19 09/20/19 Range/Units 21:47 21:47 21:47 WBC (4.8-10.8) K/uL RBC (4.7-6.1) M/uL Hgb (14.0-18.0) g/dL Hct (42-52) % MCV (80-100) fL MCH (25-34) pg MCHC (32-36) g/dL RDW Std Deviation (36.4-46.3) fL RDW Coeff of Paulo (11.5-14.5) % Plt Count (130-400) K/uL MPV (7.4-10.4) fL Immature Gran % (Auto) % Neut % (Auto) % Lymph % (Auto) % [place] % (Auto) % Eos % (Auto) % Baso % (Auto) % Immature Gran # (Auto) (0.00-0.02) K/uL Neut # (Auto) (1.4-6.5) K/uL Lymph # (Auto) (1.2-3.4) K/uL [place] # (Auto) (0.11-0.59) K/uL Eos # (Auto) (0-0.5) K/uL Baso # (Auto) (0-0.2) K/uL PT 12.8 H (9.0-12.0) Seconds INR 1.2 H (0.9-1.1) APTT 33.1 H (21.0-31.0) Seconds PTT Ratio 1.2 Sodium 138 (136-145) mmol/L Potassium 4.3 (3.5-5.1) mmol/L Chloride 102 (98-107) mmol/L Carbon Dioxide 31 (21-32) mmol/L Anion Gap 5.0 (3-11) BUN 32 H (7-18) mg/dl Creatinine 1.58 H (0.6-1.4) mg/dl Est Cr Clr Drug Dosing Not Reportable Est GFR ( Amer) 47.5 Est GFR (Non-Af Amer) 41.0 BUN/Creatinine Ratio 20.1 H (10-20) Glucose 258 H (70-99) mg/dl Lactate 2.4 H* (0.4-2.0) mmol/L Calcium 9.5 (8.5-10.1) mg/dl Magnesium 1.9 (1.8-2.4) mg/dl Total Bilirubin 0.6 (0.2-1) mg/dl AST 11 L (15-37) U/L ALT 19 (12-78) U/L Alkaline Phosphatase 92 (45-117) U/L Troponin I 0.081 H* (0-0.045) ng/ml Total Protein 8.6 H (6.4-8.2) gm/dl Albumin 3.7 (3.4-5.0) gm/dl Globulin 4.9 H (2.5-4.0) gm/dl Albumin/Globulin Ratio 0.8 L (0.9-2) Procalcitonin (0-0.5) ng/ml Influenza Type A (PCR) (Neg) Influenza Type B (PCR) (Neg) Imaging Data Attestation: I personally reviewed and interpreted this imaging study as follo ws: Blood Pressure Blood Pressure Findings: Elevated blood pressure Blood Pressure Disposition: Referred to patients primary care provider [facility] Narrative Prior records/ancillary studies reviewed. Triage Nursing notes reviewed. Additional history obtained from EMS. The patient's history was concerning for fever, confusion, shortness of breath. Differential diagnosis: Etiologies such as sepsis, UTI, pneumonia, metabolic, electrolyte abnormalities, cardiac sources, intracerebral event, toxicologic, neurologic, as well as others were entertained. Physical examination: As above. Pertinent findings were fever, shortness of breath, cough. Vital signs reviewed and revealed tachycardia and febrile. ER treatment provided: IV fluid resuscitation with Normal saline solution, 1000 mL bolus. IV fluid hydration with Normal saline solution at 125 mL/hr. Blood and urine cultures Antibiotics: Zosyn, vancomycin BiPAP was immediately initiated An order was placed for continuous cardiac monitoring. The monitor shows a rate of 80-1 50 with A. fib with RVR. On reassessment the patient vital signs improved. Diagnostics interpretation by me: ECG: Ordered for sepsis EKG: Irregularly irregular with a left bundle branch block, poor baseline, rate of 133. Impression A. fib with RVR with a left bundle branch block interpreted by myself EKG shows no interval abnormalities such as QT prolongation or WPW. There are no findings to suggest Brugada syndrome. Hypertrophic cardiomyopathy was considered but there are no clear historical elements pointing toward this. EKG is not suggestive. The labs revealed leukocytosis on CBC. Chemistry panel revealed hyperglycemia LFTs revealed. Cardiac enzymes were elevated. Serum Lactate measurement was 2.4 Blood and urine cultures are pending. Imaging studies: Chest xray revealed XR chest 1V portable CLINICAL HISTORY: SEPSIS COMPARISON STUDY: 08/08/2019 FINDINGS: The heart is enlarged. There is a left subclavian pacer/defibrillator. There are postsurgical changes of a midline sternotomy. There are bilateral pulmonary airspace opacities. Diagnostic considerations include pulmonary edema versus a bilateral pneumonia. There are no large pleural effusions.[ IMPRESSION: Bilateral pulmonary airspace opacities, likely representing pulmonary edema. A bilateral pneumonia could appear similar. Clinical and radiographic follow-up is recommended. ACT 112: Negative or not required by law. Electronically signed by: Shemar Santos M.D. 09/20/2019 10:03 PM Dictated: 09/20/192201 Transcribed: 09/20/192201 CT chest wo con CLINICAL HISTORY: Fever, shortness of breath. Possible congestive failure. COMPARISON STUDY: CT scan dated 06/12/2013., Chest x-ray dated 09/20/2019 CT DOSE: TECHNIQUE: CT of the thorax was performed from the thoracic inlet to the lung bases. Images are reviewed in the axial, sagittal, and coronal planes. IV contrast was not administered for this examination. A dose lowering technique was utilized adhering to the principles of ALARA. FINDINGS: Thyroid: Imaged portions of the thyroid gland are normal in appearance. Thoracic aorta: There is mild ectasia of the ascending thoracic aorta which measures 4 cm. Heart: The heart is enlarged. There are coronary artery calcifications present. There is a left-sided central venous pacemaker present. Lungs and pleural spaces: There are bilateral pleural effusions. There are extensive multifocal bilateral pulmonary airspace opacities. While likely representing pulmonary edema, a multifocal infectious process could appear similar. Mediastinum: There is increasing mild mediastinal lymphadenopathy. An index prevascular lymph node measures 15 mm in short axis. This previously measured 1 cm in short axis. A precarinal lymph node measures 16 mm in short axis. This previously measured 14 mm in short axis. Jessie: There are calcified left hilar lymph nodes Axilla: There is no evidence of pathologic axillary lymphadenopathy Upper abdomen: Partially visualized upper abdominal viscera is within normal limits. Skeletal structures: There are no lytic or blastic osseous lesions. IMPRESSION: 1. Bilateral pleural effusions and moderately extensive multifocal bilateral airspace opacities. While likely representing pulmonary edema, a multifocal infectious process could appear similar 2. Increasing mediastinal lymphadenopathy ACT 112: Negative or not required by law. Electronically signed by: Shemar Santos M.D. 09/20/2019 10:45 PM Consultation: A consultation was placed with Dr Fowler, hospitalist. The case was discussed and diagnostics were reviewed. The patient was evaluated in the ER for further treatment. Exam and history seem consistent with pneumonia with sepsis with acute respiratory failure with elevated troponin and creatinine. Patient was immediately placed on BiPAP and started on antibiotics. 2 IV lines were initiated. Septic work-up was ordered. He is a DNR. This was reviewed with family. Patient and family are agreeable treatment plan of admission. Medicine was consulted. Patient was reassessed multiple times. He did improve. The chart was completed utilizing [employer] Speech voice recognition software. Grammatical errors, random word insertions, pronoun errors, and incomplete sentences are an occassional consequence of this system due to software limitations, ambient noise, and hardware issues. Any formal questions or concerns about the content, text, or information contained within the body of this dictation should be directly addressed to the physician store administrative assistant for clarification. Impression & Plan Sepsis, Acute respiratory failure, Pneumonia Discharge Plan Visit Data Chief Complaint: Illness Stated Complaint: CONFUSION, ED Provider: Everton Dunn ED Midlevel Provider: Riri Francisco Discharge Problem: Sepsis, Acute respiratory failure, Pneumonia Patient Disposition: Admitted As Inpatient Condition: Critical Forms Stand Alone Forms: [facility] Signicat Prescriptions Prescriptions: No Action atorvastatin 80 mg tablet 80 mg PO DAILY Qty: 90 RF: 3 gabapentin 300 mg capsule 600 mg PO BID Qty: 30 RF: 0 duloxetine 60 mg capsule,delayed release(DR/EC) 60 mg PO DAILY Qty: 90 RF: 1 metolazone 2.5 mg tablet See Rx Instructions .ROUTE .COMPLEX Qty: 90 RF: 4 furosemide 40 mg tablet 40 mg PO DAILY Qty: 90 RF: 3 Xarelto 15 mg tablet 15 mg PO DAILY Qty: 90 RF: 3 levetiracetam 500 mg tablet 500 mg PO BID Qty: 180 RF: 4 (DME) FreeStyle Lite Strips strip See Dose Instructions .ROUTE .MEDSUPPLY Qty: 350 RF: 3 metoprolol tartrate 50 mg tablet 50 mg PO BID Qty: 180 RF: 3 pantoprazole 40 mg tablet,delayed release (DR/EC) 40 mg PO BID Qty: 180 RF: 1 Jardiance 10 mg tablet 10 mg PO DAILY Qty: 90 RF: 3 montelukast 10 mg tablet 10 mg PO PM Qty: 90 RF: 3 docusate sodium 100 mg capsule 100 mg PO BID PRN (Reason: Constipation) RF: 0 hydrocortisone-pramoxine 2.5-1 % cream 1 appln ND BID PRN (Reason: itching) Qty: 30 RF: 0 lidocaine [Lidoderm] 5 % adhesive patch,medicated 1 patch TOP DAILY Qty: 90 RF: 0 (DME) lancets [FreeStyle Lancets] 28 gauge misc See Dose Instructions .ROUTE .MEDSUPPLY Qty: 25 RF: 0 fluorouracil 5 % cream 1 appln TOP ONCE 28 Days Qty: 40 RF: 0 potassium chloride 10 mEq capsule, extended release 10 meq PO DAILY Qty: 90 RF: 3 Novolog U-100 Insulin aspart 100 unit/mL solution See Rx Instructions SQ TID MDD 240 units Qty: 22 RF: 3 Lantus U-100 Insulin 100 unit/mL solution 120 units subcut BID 90 Days Qty: 22 RF: 3 spironolactone 25 mg Tablet 25 mg PO BID RF: 0 cholecalciferol (vitamin D3) 1,000 unit Capsule 1,000 unit PO QAM RF: 0 nitroglycerin [Nitrostat] 0.4 mg tablet, sublingual 0.4 mg Sublingual Q5M PRN (Reason: Chest Pain) RF: 0 aspirin 81 mg Tablet,Delayed Release (Dr/Ec) 81 mg PO QAM RF: 0 losartan 25 mg Tablet 25 mg PO DAILY RF: 0 Referrals Referrals: Ron Aguilera MD [Primary Care Provider] - Discharge Problem: Sepsis Qualifiers: Sepsis type: sepsis due to unspecified organism Sepsis acute organ dysfunction status: unspecified Qualified Code(s): A41.9 - Sepsis, unspecified organism
[2019-09-20 22:29] LABS: Albumin Globulin Ratio 0.8 (0.9-2); Alkaline Phosphatase 92 U/L (45-117); Bilirubin,Total 0.6 mg/dl (0.2-1); Globulin 4.9 gm/dl (2.5-4.0); Total Protein 8.6 gm/dl (6.4-8.2); Troponin I 0.081 ng/ml (0-0.045)
--- NOTE | 2019-09-20 22:30 | Emergency Department Note ---
ED Visit Note Patient was seen and evaluated at the bedside w/ Estela Francisco PA-C. Please see their note for history, physical, details, and disposition. Patient did come in with fever and respiratory distress. The patient's chest x- ray does appear concerning for volume overload versus pneumonia. Given the patient's respiratory distress and associated fever antibiotics were ordered. Patient is DNR/DNI. Patient was subsequently admitted. . : Sepsis Qualifiers: Sepsis type: sepsis due to unspecified organism Sepsis acute organ dysfunction status: unspecified Qualified Code(s): A41.9 - Sepsis, unspecified organism
--- NOTE | 2019-09-20 22:41 | CT Scan Report ---
CT head/brain wo con CLINICAL HISTORY: slurred speech/confused COMPARISON STUDY: 08/04/2019 TECHNIQUE: Axial CT of the brain is performed from the vertex to the skull base. IV contrast was not administered for this examination. A dose lowering technique was utilized adhering to the principles of ALARA. CT DOSE: 1760.54 mGy.cm FINDINGS: No intra or extra-axial mass lesions are visualized. There is no CT evidence of acute cortical infarc tion. There is no evidence of midline shift. There is no acute hemorrhage. No calvarial fractures ar e visualized. There are patchy white matter hypodensities likely on a small vessel basis. There is no evidence of pathologic ventricular dilatation. There is no evidence of acute sinusitis. There is increased density within the left occipital scalp, likely representing the residua of a prior contusion. IMPRESSION: No acute intracranial findings ACT 112: Negative or not required by law. Electronically signed by: Shemar Santos M.D. 09/20/2019 10:39 PM
[2019-09-20 22:45] LABS: Basophils # (auto) 0.04 K/uL (0-0.2); Basophils % (auto) 0.2 %; Eosinophils # (auto) 0.03 K/uL (0-0.5); Eosinophils % (auto) 0.1 %; Immature Granulocytes % (auto) 0.4 %; Lymphocytes # (auto) 0.99 K/uL (1.2-3.4); Lymphocytes % (auto) 3.8 %; Monocytes # (auto) 2.04 K/uL (0.11-0.59); Monocytes % (auto) 7.8 %; Neutrophils # (auto) 23.03 K/uL (1.4-6.5); Neutrophils % (auto) 87.7 %
--- NOTE | 2019-09-20 22:47 | CT Scan Report ---
CT chest wo con CLINICAL HISTORY: Fever, shortness of breath. Possible congestive failure. COMPARISON STUDY: CT scan dated 06/12/2013., Chest x-ray dated 09/20/2019 CT DOSE: TECHNIQUE: CT of the thorax was performed from the thoracic inlet to the lung bases. Images are revi ewed in the axial, sagittal, and coronal planes. IV contrast was not administered for this examinatio n. A dose lowering technique was utilized adhering to the principles of ALARA. FINDINGS: Thyroid: Imaged portions of the thyroid gland are normal in appearance. Thoracic aorta: There is mild ectasia of the ascending thoracic aorta which measures 4 cm. Heart: The heart is enlarged. There are coronary artery calcifications present. There is a left-sided central venous pacemaker present. Lungs and pleural spaces: There are bilateral pleural effusions. There are extensive multifocal bilat eral pulmonary airspace opacities. While likely representing pulmonary edema, a multifocal infectious process could appear similar. Mediastinum: There is increasing mild mediastinal lymphadenopathy. An index prevascular lymph node me asures 15 mm in short axis. This previously measured 1 cm in short axis. A precarinal lymph node norma ures 16 mm in short axis. This previously measured 14 mm in short axis. Jessie: There are calcified left hilar lymph nodes Axilla: There is no evidence of pathologic axillary lymphadenopathy Upper abdomen: Partially visualized upper abdominal viscera is within normal limits. Skeletal structures: There are no lytic or blastic osseous lesions. IMPRESSION: 1. Bilateral pleural effusions and moderately extensive multifocal bilateral airspace opacities. Whil e likely representing pulmonary edema, a multifocal infectious process could appear similar 2. Increasing mediastinal lymphadenopathy ACT 112: Negative or not required by law. Electronically signed by: Shemar Santos M.D. 09/20/2019 10:45 PM
[2019-09-20 22:54] LABS: Influenza A virus by PCR Neg for Influ A (Neg); Influenza B virus by PCR Neg for Influ B (Neg)
[2019-09-20 23:32] LABS: Base Excess ABG 1.9 mEq/L (-9-1.8); HCO3 ABG 29 mmol/L (19-24); Oxygen Saturation ABG 96.4 % (90-95); PCO2 ABG 53 mmHg (35-46); PO2 ABG 87 mmHg (80-95); pH ABG 7.35 (7.35-7.45)
[2019-09-20 23:33] LABS: Allen Test POS (Pos)
[2019-09-20 23:36] LABS: Appearance Urine Clear (Clear); Bacteria Urine Automated Negative (Negative); Bilirubin Urine Negative (Negative); Blood Urine Trace (Negative); Color Urine Yellow; Glucose Urine UA 3+ (Negative); Ketones Urine Negative (Negative); Leukocyte Esterase Urine Negative (Negative); Nitrite Urine Negative (Negative); Protein Urine 2+ (Negative); RBC Urine Automated 0-4 /hpf (0-4); Specific Gravity Urine 1.033 (1.000-1.030); Urobilinogen Urine Negative (Negative)
--- NOTE | 2019-09-21 00:11 | History & Physical Report ---
Date of Service September 21, 2019 Assessment & Plan (1) Pneumonia: Patient febrile, leukocytosis, respiratory distress arrival requiring rescue BiPAP. CT chest with bilateral pleural effusions and moderately extensive multifocal bilateral airspace opacities pulmonary edema versus infectious process. Given patient's fever and leukocytosis would favor infection over CHF at this time. Influenza negative. Patient with no recent travel, no sick contacts, no exposure to coronavirus. Admit to PCU Continue BiPAP Check urine Legionella, sputum culture Aspiration precautions Vancomycin and cefepimepatient recently admitted to hospital Albuterol nebs as needed Mucinex twice daily Present on Admission?: Yes (2) Elevated troponin: Known CAD. Troponin = 0.081. 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 We will decrease his basal slightly from 120 units twice daily to 100 units twice daily Insulin sliding scale with correction factor of 12, carb ratio of 5. Adjust as needed Consistent carb diet Hold Jardiance and Farxiga Present on Admission?: Yes (5) Hypertension: Blood pressure controlled Continue losartan, metoprolol, spironolactone Continue to monitor Present on Admission?: Yes (6) Dyslipidemia: Chronic. Stable. Continue atorvastatin Present on Admission?: Yes (7) Chronic diastolic (congestive) heart failure: CT chest with bilateral airspace disease pulmonary edema versus infectious process. Patient is febrile with leukocytosis, recent hospital stay fevers infectious process. Continue heart failure medicationsmetoprolol, spironolactone, metolazone, losartan Present on Admission?: Yes (8) Chronic kidney disease, stage III (moderate): Chronic. Continue to monitor BUN/creatinine/electrolytes Nephrotoxic agent Present on Admission?: Yes (9) Atrial fibrillation: Rate controlled Continue metoprolol and Xarelto Present on Admission?: Yes (10) Peripheral neuropathy: Chronic. Most likely secondary to diabetes Continue gabapentin 9 FENHep-Lock, monitor electrolytes, consistent carb/heart healthy diet as tolerated Prophylaxiscontinue anticoagulation for A. fib CodeDNR/DNI Dispositionadmit to PCU Present on Admission?: Yes History of Present Illness Chief Complaint: "Hell if I know" Primary Care Provider: Humza Aguilera MD Marito Goodrich is a 78-year-old male with multiple medical problems presenting from home with fever and respiratory distress. + Cough + shortness of breath + confusion. + Hypoxia with saturations in the 70s by EMS report. Patient was hospitalized in July for pneumonia. Completed appropriate therapy and improved. Allergies Allergy/AdvReac Type Severity Reaction Status Date / Time No Known Drug Allergies Allergy Unknown NKDA Verified 09/20/19 23:16 Home Medications Home Medications Medication Instructions Recorded Confirmed Type cholecalciferol (vitamin D3) 1,000 unit PO QAM 05/15/18 09/20/19 History spironolactone 25 mg PO BID 05/15/18 09/20/19 History aspirin 81 mg PO QAM 06/04/18 09/20/19 History docusate sodium 100 mg capsule 100 mg PO BID PRN 01/09/19 09/20/19 History hydrocortisone-pramoxine 2.5 %-1 % 1 appln AL BID PRN #30 gm 01/09/19 09/20/19 Rx rectal cream lidocaine 5 % topical patch 1 patch TOP DAILY #90 ea 01/09/19 09/20/19 Rx lancets 28 gauge #25 ea 02/25/19 09/03/19 History nitroglycerin 0.4 mg sublingual 0.4 mg SUBLINGUAL Q5M PRN tab 02/25/19 09/20/19 History tablet Novolog U-100 Insulin aspart 100 See Rx Instructions SQ TID #22 03/04/19 09/20/19 Rx unit/mL subcutaneous solution vial NS MDD 240 units Lantus U-100 Insulin 100 unit/mL 120 units SUBCUT BID 90 Days #22 03/07/19 09/20/19 Rx subcutaneous solution vial NS atorvastatin 80 mg tablet 80 mg PO DAILY #90 tab 03/19/19 09/20/19 Rx gabapentin 300 mg capsule 600 mg PO BID #30 cap 03/19/19 09/20/19 Rx duloxetine 60 mg capsule,delayed 60 mg PO DAILY #90 cap 03/29/19 09/20/19 Rx release metolazone 2.5 mg tablet See Rx Instructions .ROUTE 04/11/19 09/20/19 Rx .COMPLEX #90 tablet furosemide 40 mg tablet 40 mg PO DAILY #90 tab 04/24/19 09/20/19 Rx rivaroxaban 15 mg tablet 15 mg PO DAILY #90 tab 05/31/19 09/20/19 Rx blood sugar diagnostic #350 ea 07/05/19 09/03/19 Rx levetiracetam 500 mg tablet 500 mg PO BID #180 tab 07/05/19 09/20/19 Rx fluorouracil 5 % topical cream 1 appln TOP ONCE 28 Days #40 gm 07/08/19 09/20/19 Rx metoprolol tartrate 50 mg tablet 50 mg PO BID #180 tab 07/15/19 09/20/19 Rx potassium chloride 10 mEq 10 meq PO DAILY #90 cap 08/14/19 09/20/19 Rx capsule,extended release pantoprazole 40 mg tablet,delayed 40 mg PO BID #180 tab 08/20/19 09/20/19 Rx release montelukast 10 mg tablet 10 mg PO PM #90 tab 09/18/19 09/20/19 Rx dapagliflozin [Farxiga] 5 mg PO DAILY 09/20/19 09/20/19 History empagliflozin [Jardiance] 10 mg PO DAILY 09/20/19 09/20/19 History losartan 25 mg PO DAILY 09/20/19 09/20/19 History Past Med/Surg History Medical History Actinic keratosis (Acute) Adult situational stress disorder (Acute) Anxiety Atrial fibrillation FOLLOWS Tamara MOORE C4 cervical fracture (Acute) CAD (coronary artery disease) Carotid artery stenosis, asymptomatic (Acute) Chronic kidney disease, stage III (moderate) (Acute) Depression Diabetes (Chronic) Diabetes mellitus IDDM Enlarged prostate without lower urinary tract symptoms (luts) (Acute) External hemorrhoids (Acute) Gait disturbance (Acute) Gastroparesis (Acute) GERD (gastroesophageal reflux disease) Hearing deficit [place] 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 BRAIN BLEED + SKULL/FACIAL FRACTURES. RESOLVED W/O SURGICAL INTERVENTION. [facility] --> [facility]. 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 MOORE Insomnia (Acute) Kidney disease (Chronic) FOLLOWS W/ [place] NEPHRO Leukocytosis (Acute) Lumbar disc disease (Acute) Obesity (BMI 35.0-39.9 without comorbidity) (Acute) Osteoarthritis PAD (peripheral artery disease) (Acute) Paroxysmal ventricular tachycardia (Acute) Peripheral neuropathy (Acute) Poor historian HISTORY OBTAINED FROM [facility] - [facility] Rheumatoid nodule of left knee (Acute) Sinus bradycardia (Acute) Situational depression (Acute) Sleep apnea REFUSES CPAP/OXYGEN Subdural hematoma (Acute) Syncope (Acute) 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, with long-term current use of insulin (Acute) Uncontrolled type 2 diabetes mellitus with neurologic complication, with long- term current use of insulin (Acute) 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 History of cataract surgery History of cholecystectomy History of heart artery stent History of knee replacement LEFT Hx of CABG 2004. # VESSELS? FOLLOWS W/ BRIGETTE S/P ICD (internal cardiac defibrillator) procedure Family History Daughter Family history of reaction to anesthesia PONV Other No significant family history Social History Preferred Language: Macedonian Communication Ability: Impaired Health Care Facility Administrator Required: No Beliefs That Will Affect Care: None marital status: Current Living Situation: Spouse Other Information That Helps Us Care for You: No Feels Safe at Home: Yes Safety Concerns: Feels Safe At This Time Smoking Status: Unknown if ever smoked Hx Alcohol Use: No Hx Substance Use: No Review of Systems Review of Systems: Unobtainable due to cognitive status Physical Exam Physical Exam: General: patient resting comfortably, chronically ill in appearance, oriented to self and location Skin: warm, dry, intact, no rashes or lesions HEENT: NC/AT, regular, reactive, EOMI, anicteric sclera, conjunctiva without injection, external ear normal to inspection and nontender, nares patent, dry mucus membranes, dentition intact, no oropharyngeal lesions, neck supple, trachea midline, no LAD, no thyromegaly, no JVD Heart: +S1/S2, regular, no m/r/g Lungs: equal air entry bilaterally, + crackles mid lung moreira bilaterally Abd: +BS, soft, NT/ND, no masses/organomegaly/ascites Ext: warm, 2+ pulses in UE/LE bilaterally, no clubbing/cyanosis, + pitting edema to knees Neuro: nonfocal, patient AA&O x 2, speech intact, no facial droop, moving all e xtremities on command with equal strength 5/5 Results & Data Vital Signs (Past 12 Hours) Vital Signs Temp Pulse Pulse Resp BP Pulse Ox 09/20/19 23:00 95 H 25 H 97 09/20/19 22:46 101 H 28 H 94 09/20/19 22:17 116 H 34 H 151/88 H 94 09/20/19 22:13 107 H 36 H 97 09/20/19 22:11 107 H 36 H 97 09/20/19 22:00 114 H 18 97 09/20/19 21:48 127 H 39 H 94 09/20/19 21:15 39.1 C H 127 H 38 H 164/103 H 92 Laboratory Results Lab Results 09/20/19 09/20/19 09/20/19 Range/Units 21:44 21:47 21:47 WBC 26.23 H (4.8-10.8) K/uL RBC 4.90 (4.7-6.1) M/uL Hgb 16.1 (14.0-18.0) g/dL Hct 48.5 (42-52) % MCV 99.0 (80-100) fL MCH 32.9 (25-34) pg MCHC 33.2 (32-36) g/dL RDW Std Deviation 49.8 H (36.4-46.3) fL RDW Coeff of Paulo 13.8 (11.5-14.5) % Plt Count 332 (130-400) K/uL MPV 11.3 H (7.4-10.4) fL Immature Gran % (Auto) 0.4 % Neut % (Auto) 87.7 % Lymph % (Auto) 3.8 % [place] % (Auto) 7.8 % Eos % (Auto) 0.1 % Baso % (Auto) 0.2 % Immature Gran # (Auto) 0.10 H (0.00-0.02) K/uL Neut # (Auto) 23.03 H (1.4-6.5) K/uL Lymph # (Auto) 0.99 L (1.2-3.4) K/uL [place] # (Auto) 2.04 H (0.11-0.59) K/uL Eos # (Auto) 0.03 (0-0.5) K/uL Baso # (Auto) 0.04 (0-0.2) K/uL PT (9.0-12.0) Seconds INR (0.9-1.1) APTT (21.0-31.0) Seconds PTT Ratio ABG pH (7.35-7.45) ABG pCO2 (35-46) mmHg ABG pO2 (80-95) mmHg ABG HCO3 (19-24) mmol/L ABG O2 Saturation (90-95) % ABG Base Excess (-9-1.8) mEq/L Jeffrey Test (Pos) Barometric Pressure mm/Hg Oxygen Given Sodium (136-145) mmol/L Potassium (3.5-5.1) mmol/L Chloride (98-107) mmol/L Carbon Dioxide (21-32) mmol/L Anion Gap (3-11) BUN (7-18) mg/dl Creatinine (0.6-1.4) mg/dl Est Cr Clr Drug Dosing Est GFR ( Amer) Est GFR (Non-Af Amer) BUN/Creatinine Ratio (10-20) Glucose (70-99) mg/dl Lactate (0.4-2.0) mmol/L Calcium (8.5-10.1) mg/dl Phosphorus (2.5-4.9) mg/dl Magnesium (1.8-2.4) mg/dl Total Bilirubin (0.2-1) mg/dl AST (15-37) U/L ALT (12-78) U/L Alkaline Phosphatase (45-117) U/L Troponin I (0-0.045) ng/ml NT-Pro-B Natriuret Pep (0-1800) pg/ml Total Protein (6.4-8.2) gm/dl Albumin (3.4-5.0) gm/dl Globulin (2.5-4.0) gm/dl Albumin/Globulin Ratio (0.9-2) Procalcitonin 0.23 (0-0.5) ng/ml Urine Color Urine Appearance (Clear) Urine pH (4.5-7.5) Ur Specific [place] (1.000-1.030) Urine Protein (Negative) Urine Glucose (UA) (Negative) Urine Ketones (Negative) Urine Blood (Negative) Urine Nitrite (Negative) Urine Bilirubin (Negative) Urine Urobilinogen (Negative) Ur Leukocyte Esterase (Negative) Urine WBC (Auto) (0-5) /hpf Urine RBC (Auto) (0-4) /hpf U Hyaline Cast (Auto) (0-5) /lpf U Epithel Cells (Auto) (0-5) /lpf Urine Bacteria (Auto) (Negative) Influenza Type A (PCR) Neg for Influ A (Neg) Influenza Type B (PCR) Neg for Influ B (Neg) 09/20/19 09/20/19 09/20/19 Range/Units 21:47 21:47 21:47 WBC (4.8-10.8) K/uL RBC (4.7-6.1) M/uL Hgb (14.0-18.0) g/dL Hct (42-52) % MCV (80-100) fL MCH (25-34) pg MCHC (32-36) g/dL RDW Std Deviation (36.4-46.3) fL RDW Coeff of Paulo (11.5-14.5) % Plt Count (130-400) K/uL MPV (7.4-10.4) fL Immature Gran % (Auto) % Neut % (Auto) % Lymph % (Auto) % [place] % (Auto) % Eos % (Auto) % Baso % (Auto) % Immature Gran # (Auto) (0.00-0.02) K/uL Neut # (Auto) (1.4-6.5) K/uL Lymph # (Auto) (1.2-3.4) K/uL [place] # (Auto) (0.11-0.59) K/uL Eos # (Auto) (0-0.5) K/uL Baso # (Auto) (0-0.2) K/uL PT 12.8 H (9.0-12.0) Seconds INR 1.2 H (0.9-1.1) APTT 33.1 H (21.0-31.0) Seconds PTT Ratio 1.2 ABG pH (7.35-7.45) ABG pCO2 (35-46) mmHg ABG pO2 (80-95) mmHg ABG HCO3 (19-24) mmol/L ABG O2 Saturation (90-95) % ABG Base Excess (-9-1.8) mEq/L Jeffrey Test (Pos) Barometric Pressure mm/Hg Oxygen Given Sodium 138 (136-145) mmol/L Potassium 4.3 (3.5-5.1) mmol/L Chloride 102 (98-107) mmol/L Carbon Dioxide 31 (21-32) mmol/L Anion Gap 5.0 (3-11) BUN 32 H (7-18) mg/dl Creatinine 1.58 H (0.6-1.4) mg/dl Est Cr Clr Drug Dosing Not Reportable Est GFR ( Amer) 47.5 Est GFR (Non-Af Amer) 41.0 BUN/Creatinine Ratio 20.1 H (10-20) Glucose 258 H (70-99) mg/dl Lactate 2.4 H* (0.4-2.0) mmol/L Calcium 9.5 (8.5-10.1) mg/dl Phosphorus 3.4 (2.5-4.9) mg/dl Magnesium 1.9 (1.8-2.4) mg/dl Total Bilirubin 0.6 (0.2-1) mg/dl AST 11 L (15-37) U/L ALT 19 (12-78) U/L Alkaline Phosphatase 92 (45-117) U/L Troponin I 0.081 H* (0-0.045) ng/ml NT-Pro-B Natriuret Pep 834 (0-1800) pg/ml Total Protein 8.6 H (6.4-8.2) gm/dl Albumin 3.7 (3.4-5.0) gm/dl Globulin 4.9 H (2.5-4.0) gm/dl Albumin/Globulin Ratio 0.8 L (0.9-2) Procalcitonin (0-0.5) ng/ml Urine Color Urine Appearance (Clear) Urine pH (4.5-7.5) Ur Specific [place] (1.000-1.030) Urine Protein (Negative) Urine Glucose (UA) (Negative) Urine Ketones (Negative) Urine Blood (Negative) Urine Nitrite (Negative) Urine Bilirubin (Negative) Urine Urobilinogen (Negative) Ur Leukocyte Esterase (Negative) Urine WBC (Auto) (0-5) /hpf Urine RBC (Auto) (0-4) /hpf U Hyaline Cast (Auto) (0-5) /lpf U Epithel Cells (Auto) (0-5) /lpf Urine Bacteria (Auto) (Negative) Influenza Type A (PCR) (Neg) Influenza Type B (PCR) (Neg) 09/20/19 09/20/19 09/20/19 Range/Units 23:10 23:19 23:41 WBC (4.8-10.8) K/uL RBC (4.7-6.1) M/uL Hgb (14.0-18.0) g/dL Hct (42-52) % MCV (80-100) fL MCH (25-34) pg MCHC (32-36) g/dL RDW Std Deviation (36.4-46.3) fL RDW Coeff of Paulo (11.5-14.5) % Plt Count (130-400) K/uL MPV (7.4-10.4) fL Immature Gran % (Auto) % Neut % (Auto) % Lymph % (Auto) % [place] % (Auto) % Eos % (Auto) % Baso % (Auto) % Immature Gran # (Auto) (0.00-0.02) K/uL Neut # (Auto) (1.4-6.5) K/uL Lymph # (Auto) (1.2-3.4) K/uL [place] # (Auto) (0.11-0.59) K/uL Eos # (Auto) (0-0.5) K/uL Baso # (Auto) (0-0.2) K/uL PT (9.0-12.0) Seconds INR (0.9-1.1) APTT (21.0-31.0) Seconds PTT Ratio ABG pH 7.35 (7.35-7.45) ABG pCO2 53 H (35-46) mmHg ABG pO2 87 (80-95) mmHg ABG HCO3 29 H (19-24) mmol/L ABG O2 Saturation 96.4 H (90-95) % ABG Base Excess 1.9 H (-9-1.8) mEq/L Jeffrey Test POS (Pos) Barometric Pressure 737.0 mm/Hg Oxygen Given FIO2 60% Sodium (136-145) mmol/L Potassium (3.5-5.1) mmol/L Chloride (98-107) mmol/L Carbon Dioxide (21-32) mmol/L Anion Gap (3-11) BUN (7-18) mg/dl Creatinine (0.6-1.4) mg/dl Est Cr Clr Drug Dosing Est GFR ( Amer) Est GFR (Non-Af Amer) BUN/Creatinine Ratio (10-20) Glucose (70-99) mg/dl Lactate 1.6 (0.4-2.0) mmol/L Calcium (8.5-10.1) mg/dl Phosphorus (2.5-4.9) mg/dl Magnesium (1.8-2.4) mg/dl Total Bilirubin (0.2-1) mg/dl AST (15-37) U/L ALT (12-78) U/L Alkaline Phosphatase (45-117) U/L Troponin I (0-0.045) ng/ml NT-Pro-B Natriuret Pep (0-1800) pg/ml Total Protein (6.4-8.2) gm/dl Albumin (3.4-5.0) gm/dl Globulin (2.5-4.0) gm/dl Albumin/Globulin Ratio (0.9-2) Procalcitonin (0-0.5) ng/ml Urine Color Yellow Urine Appearance Clear (Clear) Urine pH 5.0 (4.5-7.5) Ur Specific [place] 1.033 H (1.000-1.030) Urine Protein 2+ H (Negative) Urine Glucose (UA) 3+ H (Negative) Urine Ketones Negative (Negative) Urine Blood Trace H (Negative) Urine Nitrite Negative (Negative) Urine Bilirubin Negative (Negative) Urine Urobilinogen Negative (Negative) Ur Leukocyte Esterase Negative (Negative) Urine WBC (Auto) 5-10 H (0-5) /hpf Urine RBC (Auto) 0-4 (0-4) /hpf U Hyaline Cast (Auto) 1-5 (0-5) /lpf U Epithel Cells (Auto) 10-20 H (0-5) /lpf Urine Bacteria (Auto) Negative (Negative) Influenza Type A (PCR) (Neg) Influenza Type B (PCR) (Neg) Diagnostic Findings XR chest 1V portable CLINICAL HISTORY: SEPSIS COMPARISON STUDY: 08/08/2019 FINDINGS: The heart is enlarged. There is a left subclavian pacer/defibrillator. There are postsurgical changes of a midline sternotomy. There are bilateral pulmonary airspace opacities. Diagnostic considerations include pulmonary edema versus a bilateral pneumonia. There are no large pleural effusions.[ IMPRESSION: Bilateral pulmonary airspace opacities, likely representing pulmonary edema. A bilateral pneumonia could appear similar. Clinical and radiographic follow-up is recommended. ACT 112: Negative or not required by law. Electronically signed by: Shemar Santos M.D. 09/20/2019 10:[address] head/brain wo con CLINICAL HISTORY: slurred speech/confused COMPARISON STUDY: 08/04/2019 TECHNIQUE: Axial CT of the brain is performed from the vertex to the skull base. IV contrast was not administered for this examination. A dose lowering technique was utilized adhering to the principles of ALARA. CT DOSE: 1760.54 mGy.cm FINDINGS: No intra or extra-axial mass lesions are visualized. There is no CT evidence of acute cortical infarction. There is no evidence of midline shift. There is no acute hemorrhage. No calvarial fractures are visualized. There are patchy white matter hypodensities likely on a small vessel basis. There is no evidence of pathologic ventricular dilatation. There is no evidence of acute sinusitis. There is increased density within the left occipital scalp, likely representing the residua of a prior contusion. IMPRESSION: No acute intracranial findings ACT 112: Negative or not required by law. Electronically signed by: Shemar Santos M.D. 09/20/2019 10:39 PM Dictated: 09/20/192237 Transcribed: 09/20/192237 CT chest wo con CLINICAL HISTORY: Fever, shortness of breath. Possible congestive failure. COMPARISON STUDY: CT scan dated 06/12/2013., Chest x-ray dated 09/20/2019 CT DOSE: TECHNIQUE: CT of the thorax was performed from the thoracic inlet to the lung bases. Images are reviewed in the axial, sagittal, and coronal planes. IV contrast was not administered for this examination. A dose lowering technique was utilized adhering to the principles of ALARA. FINDINGS: Thyroid: Imaged portions of the thyroid gland are normal in appearance. Thoracic aorta: There is mild ectasia of the ascending thoracic aorta which measures 4 cm. Heart: The heart is enlarged. There are coronary artery calcifications present. There is a left-sided central venous pacemaker present. Lungs and pleural spaces: There are bilateral pleural effusions. There are extensive multifocal bilateral pulmonary airspace opacities. While likely representing pulmonary edema, a multifocal infectious process could appear similar. Mediastinum: There is increasing mild mediastinal lymphadenopathy. An index prevascular lymph node measures 15 mm in short axis. This previously measured 1 cm in short axis. A precarinal lymph node measures 16 mm in short axis. This previously measured 14 mm in short axis. Jessie: There are calcified left hilar lymph nodes Axilla: There is no evidence of pathologic axillary lymphadenopathy Upper abdomen: Partially visualized upper abdominal viscera is within normal limits. Skeletal structures: There are no lytic or blastic osseous lesions. IMPRESSION: 1. Bilateral pleural effusions and moderately extensive multifocal bilateral a irspace opacities. While likely representing pulmonary edema, a multifocal infectious process could appear similar 2. Increasing mediastinal lymphadenopathy ACT 112: Negative or not required by law. Electronically signed by: Shemar Santos M.D. 09/20/2019 10:45 PM Dictated: 09/20/19 224 Transcribed: 09/20/192240 Code Status & VTE Plan Code Status DNR/DNI PG Care Time/CCT Total # of Minutes Spent Total Time Spent with Patient: Total time spent is greater than 50% in coordination of care (as documented) at patient's floor/unit and/or counseling patient: Coding Level of Care Code 29583 Initial Inpt Care Lvl 3 Diagnoses Pneumonia J18.9 Pneumonia type: due to unspecified organism Laterality: bilateral Lung location: unspecified part of lung Elevated troponin R79.89 CAD (coronary artery disease) of artery bypass graft I25.810 [place] vs. 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, with long-term current use of insulin E11.319; E11.65; Z79.4 Hypertension I10 Hypertension type: essential hypertension Dyslipidemia E78.5 Chronic diastolic (congestive) heart failure I50.32 Chronic kidney disease, stage III (moderate) N18.3 Atrial fibrillation I48.91 Atrial fibrillation type: unspecified Peripheral neuropathy G62.9 Peripheral neuropathy type: polyneuropathy, unspecified (1) Pneumonia Pneumonia type: due to unspecified organism Laterality: bilateral Lung location: unspecified part of lung Qualified Code(s): J18.9 - Pneumonia, unspecified organism (2) Hypertension Hypertension type: essential hypertension Qualified Code(s): I10 - Essential (primary) hypertension (3) CAD (coronary artery disease) of artery bypass graft [place] vs. transplanted heart: [place] heart Associated angina: without angina Qualified Code(s): I25.810 - Atherosclerosis of coronary artery bypass graft(s) without angina pectoris (4) Peripheral neuropathy Peripheral neuropathy type: polyneuropathy, unspecified Qualified Code(s): G62.9 - Polyneuropathy, unspecified (5) Atrial fibrillation Atrial fibrillation type: unspecified Qualified Code(s): I48.91 - Unspecified atrial fibrillation
[2019-09-21] MEDS ORDERED: GLUCOSE 40% GEL 15 GM TUBE PO PRN (01:22)
[2019-09-21] MEDS ORDERED: VANCOMYCIN CONSULT ACTIVE PRN (01:22)
[2019-09-21] MEDS ORDERED: CARBOHYDRATES FOR HYPOGLYCEMIA PO PRN (01:22)
[2019-09-21] MEDS ORDERED: DEXTROSE 50% 50 ML SYRINGE IV PRN (01:22)
[2019-09-21] MEDS ORDERED: GLUCOSE 10 TABS/TUBE PO PRN (01:22)
[2019-09-21] MEDS ORDERED: VANCOMYCIN HCL 1,000 MG in SODIUM CHLORIDE 0.9% 250 ML IV SCH (01:22)
[2019-09-21] MEDS ORDERED: ALBUTEROL 0.5% NEB SOLN 2.5 MG/0.5 ML VIAL NEB PRN (01:22)
[2019-09-21] MEDS ORDERED: GLUCAGON FOR INJ 1 MG VIAL SQ PRN (01:22)
[2019-09-21] MEDS ORDERED: DOCUSATE SODIUM 100 MG CAP PO PRN (01:22)
[2019-09-21 01:52] LABS: NT Pro B Type Natriuretic Pept 834 pg/ml (0-1800); Phosphorus 3.4 mg/dl (2.5-4.9)
[2019-09-21] MEDS: CEFEPIME 2,000 MG in SYRINGE 7.5 ML IV SCH ×2 (05:34→17:53)
[2019-09-21 06:56] LABS: Creatinine Clr Calc Pharmacy 53.4 ml/min; Est GFR (African American) 51.8; Est GFR (Non-African American) 44.7
[2019-09-21 07:02] LABS: Troponin I 1.1 ng/ml (0-0.045)
[2019-09-21] MEDS: metOLazone 2.5 MG TABLET PO SCH (08:33)
[2019-09-21] MEDS: SPIRONOLACTONE 25 MG TAB PO SCH ×2 (08:33→20:46)
[2019-09-21] MEDS: PANTOprazole 40 MG TAB PO SCH ×2 (08:33→20:50)
[2019-09-21] MEDS: LOSARTAN POTASSIUM 25 MG TAB PO SCH (08:34)
[2019-09-21] MEDS: METOPROLOL TARTRATE 50 MG TAB PO SCH ×2 (08:34→20:48)
[2019-09-21] MEDS: GABAPENTIN 600 MG TAB PO SCH ×2 (08:34→20:50)
[2019-09-21] MEDS: FUROSEMIDE 40 MG TAB PO SCH (08:34)
[2019-09-21] MEDS: levETIRAcetam 500 MG TAB PO SCH ×2 (08:34→20:47)
[2019-09-21] MEDS: DULOXETINE HCL 60 MG CAP PO SCH (08:34)
[2019-09-21] MEDS: RIVAROXABAN 15 MG TAB PO SCH (08:34)
[2019-09-21] MEDS: ASPIRIN 81 MG ECTAB PO SCH (08:35)
[2019-09-21] MEDS: guaiFENesin 600 MG TABCR PO SCH ×2 (08:35→20:49)
[2019-09-21] MEDS: ATORVASTATIN 40 MG TAB PO SCH (08:35)
[2019-09-21] MEDS: LIDOCAINE 5% 1 PATCH TD SCH (08:40)
[2019-09-21] MEDS: INSULIN GLARGINE 100 UNIT/ML VIAL SC SCH ×2 (09:23→20:47)
[2019-09-21] MEDS: INSULIN ASPART 100 UNITS/ML 3 ML PEN SC SCH ×4 (09:24→20:44)
--- NOTE | 2019-09-21 09:59 | Pharmacy Report ---
Pharmacy Abx Initial Consult - Date of Service September 21, 2019 - Pharmacy Dosing Scope Date of Consult: 09/20/19 Consultation requested by: Dr. Wolf Fowler Pharmacy is consulted to initiate Vancomycin IV dosing therapy, order appropriate labs and adjust drug dose/frequency. - Subjective The patient is a 78 year old M admitted on 09/21/19 00:10. - Objective Height: 5 ft 11 in Weight: 118.5 kg Vital Signs (Past 12hrs): Vital Signs Temp Pulse Pulse Resp BP BP BP 09/21/19 07:08 36.3 C L 95 H 17 121/66 09/21/19 03:59 36.5 C 94 H 19 104/62 09/21/19 03:51 84 22 09/21/19 01:29 36.5 C 90 16 114/65 09/21/19 01:20 36.5 C 90 16 114/65 09/21/19 01:03 88 19 09/21/19 00:30 94 H 22 127/67 09/21/19 00:00 94 H 20 115/66 09/20/19 23:30 105 H 21 121/64 09/20/19 23:00 95 H 25 H 09/20/19 22:46 101 H 28 H 09/20/19 22:17 116 H 34 H 151/88 H 09/20/19 22:13 107 H 36 H 09/20/19 22:11 107 H 36 H 09/20/19 22:00 114 H 18 Pulse Ox 09/21/19 07:08 94 09/21/19 03:59 99 09/21/19 03:51 96 09/21/19 01:29 97 09/21/19 01:20 95 09/21/19 01:03 95 09/21/19 00:30 93 09/21/19 00:00 94 09/20/19 23:30 96 09/20/19 23:00 97 09/20/19 22:46 94 09/20/19 22:17 94 09/20/19 22:13 97 09/20/19 22:11 97 09/20/19 22:00 97 Lab Results (24hrs): Laboratory Tests (24 Hours) 09/21/19 09/20/19 09/20/19 06:14 21:47 21:47 WBC 26.23 H Neut # (Auto) 23.03 H Creatinine 1.47 H 1.58 H Est Cr Clr Drug Dosing 53.4 Not Reportable Procalcitonin 09/20/19 21:47 WBC Neut # (Auto) Creatinine Est Cr Clr Drug Dosing Procalcitonin 0.23 Micro Results: 09/20/19 21:48 Aerobic Blood Culture - Pending Blood Anaerobic Blood Culture - Pending 09/20/19 21:47 Aerobic Blood Culture - Pending Blood Anaerobic Blood Culture - Pending - Risk Factors for Resistance * Hospitalization for 48 hours or more within the past 90 days - admitted 08/04- 08/08 for pneumonia * Antimicrobial use within the last 90 days - transitions from Zosyn to Augmentin PO for 3 additional days after last discharge. - Assessment & Plan Assessment 78 year old M with multiple comorbidities presents to the ED via EMS with fever, SOB, confusion. Chest CT shows b/l pleural effusions and opacities. Febrile (tmax in 39.1), leukocytosis (WBC 26.3) Blood cultures x2 pending MRSA swab pending Flu negative Patient denies any recent travel or exposure to sick contacts. Plan Vancomycin + Cefepime for treatment of pulmonary source Vancomycin IV * Estimated PK Parameters: Vd 0.7 L/kg, Cory 0.048 hr-1, t1/2 14 hr * Loading dose: 2000 mg (~17 mg/kg) * Maintenance dose: 1500 mg IV (~13 mg/kg) every 160hours * Goal trough level: 15 to 20 mcg/mL * Trough level will be ordered with 4th maintenance dose if vancomycin therapy continues. * A less than traditional dose has been selected due to likelihood of drug accumulation in obese patient. Cefepime (not a consult) * Target dose: 2gm Q8H for pulmonary source * CrCl 30-60 mL/min, reduce frequency to Q12h. Pharmacy will continue to follow and will adjust dose/frequency as necessary. Thank you.
--- NOTE | 2019-09-21 11:58 | Electrocardiogram Report ---
Test Reason : Blood Pressure : / mmHG Vent. Rate : 133 BPM Atrial Rate : 174 BPM P-R Int : 000 ms QRS Dur : 170 ms QT Int : 366 ms P-R-T Axes : 000 -20 142 degrees QTc Int : 544 ms Poor data quality, interpretation may be adversely affected Atrial fibrillation with rapid ventricular response Left bundle branch block Abnormal ECG When compared with ECG of 06-AUG-2019 06:38, Vent. rate has increased BY 50 BPM QRS duration has increased Confirmed by Dung Arguelles ([id number]) on 09/21/2019 11:57:44 AM Referred By: REFERRED SELF Confirmed By:Dung Arguelles
[2019-09-21] MEDS ORDERED: VANCOMYCIN HCL 1,500 MG in SODIUM CHLORIDE 0.9% 500 ML IV SCH (16:00)
[2019-09-21] MEDS: MONTELUKAST SODIUM 10 MG TABLET PO SCH (20:50)
[2019-09-22] MEDS ORDERED: ACETAMINOPHEN 325 MG TAB PO PRN (02:23)
[2019-09-22] MEDS: CEFEPIME 2,000 MG in SYRINGE 7.5 ML IV SCH ×2 (05:46→16:50)
[2019-09-22 07:13] LABS: Basophils # (auto) 0.03 K/uL (0-0.2); Basophils % (auto) 0.2 %; Eosinophils # (auto) 0.24 K/uL (0-0.5); Eosinophils % (auto) 1.6 %; Hematocrit (blood only) 41.3 % (42-52); Hemoglobin 13.7 g/dL (14.0-18.0); Immature Granulocytes # (auto) 0.04 K/uL (0.00-0.02); Immature Granulocytes % (auto) 0.3 %; Lymphocytes # (auto) 2.24 K/uL (1.2-3.4); Lymphocytes % (auto) 14.9 %; Mean Corpuscular Hemoglobin 32.5 pg (25-34); Mean Corpuscular Hgb Conc 33.2 g/dL (32-36); Mean Corpuscular Volume 97.9 fL (80-100); Mean Platelet Volume 11.3 fL (7.4-10.4); Monocytes % (auto) 10.7 %; Neutrophils # (auto) 10.85 K/uL (1.4-6.5); Neutrophils % (auto) 72.3 %; Platelet Count 238 K/uL (130-400); RDW Coefficient of Variation 13.9 % (11.5-14.5); RDW Standard Deviation 49.8 fL (36.4-46.3); Red Blood Count 4.22 M/uL (4.7-6.1)
[2019-09-22 07:52] LABS: Calcium 9.2 mg/dl (8.5-10.1); Creatinine Clr Calc Pharmacy 59.2 ml/min; Est GFR (Non-African American) 50.9; Potassium 3.3 mmol/L (3.5-5.1)
[2019-09-22] MEDS: LIDOCAINE 5% 1 PATCH TD SCH ×2 (08:12→19:01)
[2019-09-22] MEDS: metOLazone 2.5 MG TABLET PO SCH (08:13)
[2019-09-22] MEDS: FUROSEMIDE 40 MG TAB PO SCH (08:13)
[2019-09-22] MEDS: RIVAROXABAN 15 MG TAB PO SCH (08:14)
[2019-09-22] MEDS: LOSARTAN POTASSIUM 25 MG TAB PO SCH (08:14)
[2019-09-22] MEDS: SPIRONOLACTONE 25 MG TAB PO SCH ×2 (08:15→20:56)
[2019-09-22] MEDS: DULOXETINE HCL 60 MG CAP PO SCH (08:15)
[2019-09-22] MEDS: ATORVASTATIN 40 MG TAB PO SCH (08:15)
[2019-09-22] MEDS: ASPIRIN 81 MG ECTAB PO SCH (08:15)
[2019-09-22] MEDS: guaiFENesin 600 MG TABCR PO SCH ×2 (08:16→20:58)
[2019-09-22] MEDS: GABAPENTIN 600 MG TAB PO SCH ×2 (08:16→20:59)
[2019-09-22] MEDS: PANTOprazole 40 MG TAB PO SCH ×2 (08:16→21:00)
[2019-09-22] MEDS: METOPROLOL TARTRATE 50 MG TAB PO SCH ×2 (08:16→20:58)
[2019-09-22] MEDS: levETIRAcetam 500 MG TAB PO SCH ×2 (08:17→20:56)
[2019-09-22] MEDS: INSULIN ASPART 100 UNITS/ML 3 ML PEN SC SCH ×4 (08:19→21:11)
[2019-09-22] MEDS: INSULIN GLARGINE 100 UNIT/ML VIAL SC SCH ×2 (09:39→20:57)
[2019-09-22] MEDS: POTASSIUM CHLORIDE 20 MEQ TABCR PO SCH ×2 (12:58→20:57)
--- NOTE | 2019-09-22 15:24 | Communication Note ---
Date of Service: September 21, 2019 Patient seen in the afternoon. Patient is feeling better. Will continue to monitor. Continue cefepime. Hold vanco as MRSA is negative.
--- NOTE | 2019-09-22 16:19 | Hospitalist Progress Note ---
Date of Service September 22, 2019 Assessment & Plan (1) Pneumonia: Patient febrile, leukocytosis, respiratory distress arrival requiring rescue BiPAP. CT chest with bilateral pleural effusions and moderately extensive multifocal bilateral airspace opacities pulmonary edema versus infectious process. Given patient's fever and leukocytosis would favor infection over CHF at this time. Influenza negative. Patient with no recent travel, no sick contacts, no exposure to coronavirus. Admit to PCU Initially required BiPAP, now on 2 liters nasal cannula since AM of 09/20 Checked urine Legionella, sputum culture Aspiration precautions Vancomycin and cefepimepatient recently admitted to hospital; -dc vanco on PM of 09/20 -Patient appears to be improving as clincally feeling better and WBC improving. will continue to treat with antibiotics Albuterol nebs as needed Mucinex twice daily (2) Elevated troponin: Known CAD. Troponin = 0.081. Suspect demand ischemia in setting of acute illness Telemetry monitoring Continue to trend troponin Continue home medications, aspirin, atorvastatin, losartan, metoprolol, Aldactone (3) CAD (coronary artery disease) of artery bypass graft: As above Trend troponins Monitor monitoring Continue home medications -will keep on tele as trop was elevated and will obtain echo. likely demand ischemia. 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 We will decrease his basal slightly from 120 units twice daily to 100 units twice daily Insulin sliding scale with correction factor of 12, carb ratio of 5. Adjust as needed Consistent carb diet Hold Jardiance and Farxiga (5) Hypertension: Blood pressure controlled Continue losartan, metoprolol, spironolactone Continue to monitor (6) Dyslipidemia: Chronic. Stable. Continue atorvastatin (7) Chronic diastolic (congestive) heart failure: CT chest with bilateral airspace disease pulmonary edema versus infectious process. Patient is febrile with leukocytosis, recent hospital stay fevers infectious process. Continue heart failure medicationsmetoprolol, spironolactone, metolazone, losartan (8) Chronic kidney disease, stage III (moderate): Chronic. Continue to monitor BUN/creatinine/electrolytes Nephrotoxic agent (9) Atrial fibrillation: Rate controlled Continue metoprolol and Xarelto (10) Peripheral neuropathy: Chronic. Most likely secondary to diabetes Continue gabapentin 9 FENHep-Lock, monitor electrolytes, consistent carb/heart healthy diet as tolerated Prophylaxiscontinue anticoagulation for A. fib CodeDNR/DNI (11) Demand ischemia: trop peaked above 1 Will obtain echo and trend trop. Patient likely developed demand ischemia from sepsis. (12) Sepsis: due to above primary problem. continue antibiotics (13) Acute respiratory failure: Acute hypoxic respiratory failure improved, initally required bipap as stated above Admission and Anticipated Discharge Date Admission Date: September 21, 2019 Subjective 78 yo male reports that he continues to have productive cough. He cannot state the amount of sputum as he just coughs it up in his tissue, No blood though is noted, and it appears clear. He states his breathing has improved. Review of Systems Review of Systems: All systems reviewed & are unremarkable except as noted in HPI & below Physical Exam Physical Exam: General: patient resting comfortably,oriented to self and location Skin: warm, dry, intact, no rashes or lesions HEENT: NC/AT, regular, reactive, EOMI, anicteric sclera, conjunctiva without injection, external ear normal to inspection and nontender, nares patent, dry mucus membranes, dentition intact, no oropharyngeal lesions, neck supple, trachea midline, no LAD, no thyromegaly, no JVD Heart: +S1/S2, regular, no m/r/g Lungs: equal air entry bilaterally, + crackles bibasilar lung moreira Abd: +BS, soft, NT/ND, no masses/organomegaly/ascites Ext: warm, 2+ pulses in UE/LE bilaterally, no clubbing/cyanosis, + pitting edema to knees Neuro: nonfocal, patient AA&O x 2, speech intact, no facial droop, moving all extremities on command with equal strength 5/5 Results & Data ([facility]) Vital Signs (Past 12 Hours) Vital Signs Temp Pulse Resp BP Pulse Ox 09/22/19 15:35 36.5 C 80 17 118/57 L 95 09/22/19 11:45 36.4 C L 78 19 124/68 92 09/22/19 07:55 36.4 C L 80 19 133/71 96 PG Care Time/CCT Total # of Minutes Spent Total Time Spent with Patient: Total time spent is greater than 50% in coordination of care (as documented) at patient's floor/unit and/or counseling patient: Coding Level of Care Code 74844 Subseq Hosp Care Lvl 3 Diagnoses Pneumonia J18.9 Laterality: bilateral Lung location: unspecified part of lung Pneumonia type: due to unspecified organism Elevated troponin R79.89 CAD (coronary artery disease) of artery bypass graft I25.810 Associated angina: without angina [place] vs. 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, with long-term current use of insulin E11.319; E11.65; Z79.4 Hypertension I10 Hypertension type: essential hypertension Dyslipidemia E78.5 Chronic diastolic (congestive) heart failure I50.32 Chronic kidney disease, stage III (moderate) N18.3 Atrial fibrillation I48.91 Atrial fibrillation type: unspecified Peripheral neuropathy G62.9 Peripheral neuropathy type: polyneuropathy, unspecified Demand ischemia I24.8 Sepsis A41.9 Sepsis acute organ dysfunction status: unspecified Sepsis type: sepsis due to unspecified organism Acute respiratory failure J96.00 Time Spent (min) 35 (1) Atrial fibrillation Atrial fibrillation type: unspecified Qualified Code(s): I48.91 - Unspecified atrial fibrillation (2) CAD (coronary artery disease) of artery bypass graft Associated angina: without angina [place] vs. transplanted heart: [place] heart Qualified Code(s): I25.810 - Atherosclerosis of coronary artery bypass graft(s) without angina pectoris (3) Peripheral neuropathy Peripheral neuropathy type: polyneuropathy, unspecified Qualified Code(s): G62.9 - Polyneuropathy, unspecified (4) Hypertension Hypertension type: essential hypertension Qualified Code(s): I10 - Essential (primary) hypertension (5) Pneumonia Laterality: bilateral Lung location: unspecified part of lung Pneumonia type: due to unspecified organism Qualified Code(s): J18.9 - Pneumonia, unspecified organism (6) Sepsis Sepsis acute organ dysfunction status: unspecified Sepsis type: sepsis due to unspecified organism Qualified Code(s): A41.9 - Sepsis, unspecified organism
[2019-09-22] MEDS: MONTELUKAST SODIUM 10 MG TABLET PO SCH (21:00)
[2019-09-23] MEDS: CEFEPIME 2,000 MG in SYRINGE 7.5 ML IV SCH ×2 (05:43→18:04)
[2019-09-23 07:19] LABS: Creatinine Clr Calc Pharmacy 53.9 ml/min; Est GFR (African American) 53.2; Est GFR (Non-African American) 45.9
[2019-09-23] MEDS ORDERED: PHARMACY GLYCEMIC MGMT CONSULT PRN (08:07)
[2019-09-23] MEDS: SPIRONOLACTONE 25 MG TAB PO SCH ×2 (08:20→20:35)
[2019-09-23] MEDS: PANTOprazole 40 MG TAB PO SCH ×2 (08:20→20:38)
[2019-09-23 08:21] LABS: BUN Creatinine Ratio 22.9 (10-20); Creatinine Clr Calc Pharmacy 57.9 ml/min; Potassium 3.6 mmol/L (3.5-5.1)
[2019-09-23] MEDS: guaiFENesin 600 MG TABCR PO SCH ×2 (08:21→21:52)
[2019-09-23] MEDS: POTASSIUM CHLORIDE 20 MEQ TABCR PO SCH ×3 (08:22→20:36)
[2019-09-23] MEDS: FUROSEMIDE 40 MG TAB PO SCH (08:22)
[2019-09-23] MEDS: RIVAROXABAN 15 MG TAB PO SCH (08:22)
[2019-09-23] MEDS: METOPROLOL TARTRATE 50 MG TAB PO SCH ×2 (08:22→20:38)
[2019-09-23] MEDS: levETIRAcetam 500 MG TAB PO SCH ×2 (08:22→20:36)
[2019-09-23] MEDS: ASPIRIN 81 MG ECTAB PO SCH (08:23)
[2019-09-23] MEDS: LOSARTAN POTASSIUM 25 MG TAB PO SCH (08:23)
[2019-09-23] MEDS: ATORVASTATIN 40 MG TAB PO SCH (08:23)
[2019-09-23] MEDS: GABAPENTIN 600 MG TAB PO SCH ×2 (08:23→20:37)
[2019-09-23] MEDS: metOLazone 2.5 MG TABLET PO SCH (08:24)
[2019-09-23] MEDS: DULOXETINE HCL 60 MG CAP PO SCH (08:24)
[2019-09-23] MEDS: INSULIN ASPART 100 UNITS/ML 3 ML PEN SC SCH ×4 (08:25→20:44)
[2019-09-23] MEDS: LIDOCAINE 5% 1 PATCH TD SCH (09:36)
[2019-09-23] MEDS ORDERED: INSULIN GLARGINE SOLOSTAR 100 UNITS/ML 3 ML PEN SC ONE (12:30)
[2019-09-23] MEDS ORDERED: INSULIN GLARGINE 100 UNIT/ML VIAL SC ONE (12:45)
--- NOTE | 2019-09-23 15:11 | Pharmacy Report ---
Glycemic Control Consultation - Date of Service September 23, 2019 - Scope Scope: Glycemic Pharmacist consulted for glycemic control and to write orders per [facility] inpatient glycemic control protocol. - Objective Weight: 116.1 kg Accuchecks BSG (last 24hrs): 09/22/19 09/22/19 09/23/19 16:17 20:33 06:25 Glucose 62 L POC Glucose 147 H 88 09/23/19 09/23/19 07:26 11:20 Glucose POC Glucose 71 223 H Laboratory Data (last 24hrs): 09/23/19 09/23/19 06:25 06:25 Potassium 3.6 Carbon Dioxide 36 H Anion Gap 3.0 Creatinine 1.44 H 1.34 Est Cr Clr Drug Dosing 53.9 57.9 - Recent Pertinent Medications Outpatient Anti-diabetic Regimen: * Lantus 120 units SQ daily or BID (unclear) * Novolog 60 units with meals plus scale (max 240 units/day) The patient is currently receiving: * Basal insulin: Lantus 100 units every 12 hours * Correctional Insulin: Novolog Correction per scale ACHS Goal Range: Low 110 mg/dL - High 140 mg/dL Correction Factor: 12 mg/dL/unit * Prandial insulin: Per carb ratio of 1 unit per 5 grams CHO consumed * Oral Agents: Risk Factors for Insulin Resistance: * Infection: cefepime * Diet: T2DM - Assessment & Plan Assessment & Plan: ASSESSMENT: * Mr Goodrich is a 69 y/o M with a PMH of not well controlled T2DM - he works 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 * On 09/21/2019 the patient received 246 units (200 units of basal and 46 units of bolus) and BSGs ranged from 139-251 mg/dL. On 09/21 the patient received 233 units (200 units of basal and 33 units of bolus) and BSGs ranged from 88-206 mg/dL (actually only one BSG above 150 mg/dL). * Today the fasting was 71 mg/dL. Discontinued Lantus. Expected lunch spike of 223 mg/dL. * Start Lantus 50 units at lunch then scale for tonight with total doses ranging from 75 units to 100 units (37% to 50% of previous dose). * Start Novolog CF 12 CR of 4 which worked previously. PLAN FOR INPATIENT GLYCEMIC CONTROL: * Basal insulin * Lantus 50 units SQ x 1 then 25 units (BSG < 140 mg/dL) - 35 units (BSG 140- 180 mg/dL) - 50 units (BSG > 180 mg/dL) * Bolus insulin * NovoLog per scale ACHS or Q6hrs while NPO * Goal Range: Low 110 mg/dL - High 140 mg/dL * Correction Factor: 12 mg/dL/unit * Nutritional / Prandial insulin per carb ratio of 1 unit per 4 grams CHO consumed * Please note that the plan above was derived based on current level of insulin resistance and hospital stress. These recommendations are appropriate for inpatient admission only. Plan of care upon discharge will need to be reassessed to avoid potential outpatient hypo/hyperglycemia. Thank you.
--- NOTE | 2019-09-23 15:48 | XCELERA ---
[id number] \\[email or web address]\[id number]
--- NOTE | 2019-09-23 16:28 | Hospitalist Progress Note ---
Date of Service September 23, 2019 Assessment & Plan (1) Acute respiratory failure: Acute hypoxic hypercapnic respiratory failure - initially requiring BiPAP. Now improved. Will continue to wean O2 to sats > 90%. (2) Pneumonia: Multifocal pneumonia (with recent admission end of July). MRSA nasal swab negative therefore vancomycin d/c. Initially placed on airborne isolation for [employer] viral PCR testing and discussions with radiology, family and other providers regarding possible need for COVID-19 testing since procalcitonin negative and no identified pathogen to date. As per discussion with Dr Santos - CT would be a late finding for COVI D-19 and patient presented within hours of symptoms starting. Quick improvement suggests bacterial infection. Patient very low risk of contact from someone from high risk area as per his . Therefore I see no need for COVID-19 testing at present and isolation precautions subsequently discontinued as [employer] testing also negative. Not covered for atypical PNA and given improvement I see no reason to start atypical coverage currently. Will continue cefepime with switch to cefdinir on discharge. Concern for aspirations as per RN with coughing after breakfast and lunch (see below). (3) Aspiration of food: Possible. CT not concerning for aspiration PNA however. Concern from RN with coughing after breakfast and lunch. Speech consulted. VS planned for tomorrow. (4) Sepsis: Now resolved. Secondary to multifocal pneumonia as above. Present on Admission?: Yes (5) Acute HFrEF (heart failure with reduced ejection fraction): Pulmonary edema on CT. Significant improvement without diuresis however still requiring O2 and likely needs some diuresis to reduce O2 requirement. Lasix 40mg IV ONE given today. Will also switch metoprolol tartrate to succinate. Discontinue losartan in anticipation of switching to Entresto (36 hour washout period recommended). Will dose lasix tomorrow based on change of renal function. Continue metolazone and spironolactone. Will consult cardiology given severe hypokinesis of inferior wall as appears new since his last echocardiogram in May 2018. (6) Elevated troponin: Known CAD. Suspect demand ischemia in setting of acute illness. (7) Demand ischemia: Troponin peaked 1.1 - consistent with demand-ischemia. (8) CAD (coronary artery disease) of artery bypass graft: Continue home medications, aspirin, atorvastatin, spironolactone. Metoprolol and losartan changes as above. 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 Therefore pharmacy consulted for glycemic control. Lantus and Novolog sliding scale. T2DM Holding Jardiance and Farxiga - should only be on one of these. As per med rec suspect only on Jardiance. HbA1C 11.6 in July - will repeat with AM labs. (10) Hypertension: Blood pressure stable - Continue spironolactone - Metoprolol and Losartan as above. (11) Dyslipidemia: Continue atorvastatin. (12) Chronic kidney disease, stage III (moderate): Stable. (13) Atrial fibrillation: Rate controlled in 70-80s. - Continue metoprolol. - Anticoagulation with Xarelto. (14) Peripheral neuropathy: Chronic. Most likely secondary to diabetes Continue gabapentin Admission and Anticipated Discharge Date Admission Date: September 21, 2019 PT and OT assessments recommended prior to discharge Anticipated date of discharge: 09/24/19 Subjective Patient reports much improvement since coming in. No fevers/chills for last 24 hours. No acute events overnight. Continued productive cough. Reports no issues eating although he has observed coughing after eating breakfast and lunch today. Discussed with his over the phone. Confirmed diuretic dosing (patient reported different dosing but his does all his medications). No exposure to contacts who have been out of the county in the last 2-3 weeks. Review of Systems Review of Systems: All systems reviewed & are unremarkable except as noted in HPI & below Physical Exam Constitutional: well developed and well nourished; no acute distress Eyes: + anicteric sclerae; normal pupil size ENMT: external ear and nose normal, oropharynx normal Neck: trachea midline Respiratory: normal respiratory effort, lungs clear to auscultation Cardiovascular: Rate/Rhythm: regular rate and regular rhythm Heart Sounds: no murmur Extremities: normal capillary refill and + pedal edema (2+ b/l to mid shins); no calf tenderness Gastrointestinal (Abdomen): normal bowel sounds, soft, nontender, no hepatosplenomegaly Skin: no rashes, warm and dry Neurologic: moves all extremities and awake Psychiatric: Orientation: alert and oriented x 3 Affect: + irritable affect Results & Data ([facility]) Vital Signs (Past 12 Hours) Vital Signs Temp Pulse Pulse Pulse Resp BP Pulse Ox 09/23/19 16:16 81 09/23/19 15:57 36.4 C L 80 109/73 94 09/23/19 11:18 36.6 C 78 19 142/67 H 94 09/23/19 07:37 36.4 C L 81 19 128/63 94 PG Care Time/CCT Total # of Minutes Spent Total Time Spent with Patient: Total time spent is greater than 50% in coordination of care (as documented) at patient's floor/unit and/or counseling patient: Coding Level of Care Code 83376 Subseq Hosp Care Lvl 3 Diagnoses Acute respiratory failure J96.01; J96.02 Respiratory failure complication: hypoxia and hypercapnia Pneumonia J18.9 Laterality: bilateral Lung location: unspecified part of lung Pneumonia type: due to unspecified organism Aspiration of food T17.920A Encounter type: initial encounter Sepsis A41.9 Sepsis acute organ dysfunction status: unspecified Sepsis type: sepsis due to unspecified organism Acute HFrEF (heart failure with reduced ejection fraction) I50.21 Elevated troponin R79.89 Demand ischemia I24.8 CAD (coronary artery disease) of artery bypass graft I25.810 Associated angina: without angina [place] vs. 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, with long-term current use of insulin E11.319; E11.65; Z79.4 Hypertension I10 Hypertension type: essential hypertension Dyslipidemia E78.5 Chronic kidney disease, stage III (moderate) N18.3 Atrial fibrillation I48.91 Atrial fibrillation type: unspecified Peripheral neuropathy G62.9 Peripheral neuropathy type: polyneuropathy, unspecified (1) Acute respiratory failure Respiratory failure complication: hypoxia and hypercapnia Qualified Code(s): J96.01 - Acute respiratory failure with hypoxia; J96.02 - Acute respiratory failure with hypercapnia (2) Atrial fibrillation Atrial fibrillation type: unspecified Qualified Code(s): I48.91 - Unspecified atrial fibrillation (3) Aspiration of food Encounter type: initial encounter Qualified Code(s): T17.920A - Food in respiratory tract, part unspecified causing asphyxiation, initial encounter (4) CAD (coronary artery disease) of artery bypass graft Associated angina: without angina [place] vs. transplanted heart: [place] heart Qualified Code(s): I25.810 - Atherosclerosis of coronary artery bypass graft(s) without angina pectoris (5) Peripheral neuropathy Peripheral neuropathy type: polyneuropathy, unspecified Qualified Code(s): G62.9 - Polyneuropathy, unspecified (6) Sepsis Sepsis acute organ dysfunction status: unspecified Sepsis type: sepsis due to unspecified organism Qualified Code(s): A41.9 - Sepsis, unspecified organism (7) Hypertension Hypertension type: essential hypertension Qualified Code(s): I10 - Essential (primary) hypertension (8) Pneumonia Laterality: bilateral Lung location: unspecified part of lung Pneumonia type: due to unspecified organism Qualified Code(s): J18.9 - Pneumonia, unspecified organism
[2019-09-23] MEDS ORDERED: FUROSEMIDE 40 MG in SYRINGE 0 ML IV ONE (16:45)
[2019-09-23 17:52] LABS: Adenovirus PCR Not Detected (NotDetected); Coronavirus 229E PCR Not Detected (NotDetected); Coronavirus HKU1 PCR Not Detected (NotDetected); Coronavirus NL63 PCR Not Detected (NotDetected); Coronavirus OC43PCR Not Detected (NotDetected); Human Metapneumovirus PCR Not Detected (NotDetected); Influenza A PCR Not Detected (NotDetected); Influenza B PCR Not Detected (NotDetected); Parainfluenza Virus 1 PCR Not Detected (NotDetected); Rhinovirus/Enterovirus PCR Not Detected (NotDetected)
[2019-09-23 17:53] LABS: Bordetella parapertussis PCR Not Detected (NotDetected); Bordetella pertussis PCR Not Detected (NotDetected); Chlamydia pneumoniae PCR Not Detected (NotDetected); Mycoplasma pneumoniae PCR Not Detected (NotDetected); Parainfluenza Virus 2 PCR Not Detected (NotDetected); Parainfluenza Virus 3 PCR Not Detected (NotDetected); Parainfluenza Virus 4 PCR Not Detected (NotDetected); Respiratory Syncytial VirusPCR Not Detected (NotDetected)
[2019-09-23] MEDS: MONTELUKAST SODIUM 10 MG TABLET PO SCH (20:38)
[2019-09-23] MEDS ORDERED: INSULIN GLARGINE 100 UNIT/ML VIAL SC SCH (21:00)
[2019-09-24] MEDS: CEFEPIME 2,000 MG in SYRINGE 7.5 ML IV SCH (05:39)
[2019-09-24 06:33] LABS: Basophils # (auto) 0.03 K/uL (0-0.2); Basophils % (auto) 0.2 %; Eosinophils # (auto) 0.21 K/uL (0-0.5); Eosinophils % (auto) 1.5 %; Hematocrit (blood only) 45.7 % (42-52); Hemoglobin 15.1 g/dL (14.0-18.0); Immature Granulocytes # (auto) 0.05 K/uL (0.00-0.02); Immature Granulocytes % (auto) 0.4 %; Lymphocytes # (auto) 2.01 K/uL (1.2-3.4); Lymphocytes % (auto) 14.2 %; Mean Corpuscular Hemoglobin 31.9 pg (25-34); Mean Corpuscular Volume 96.4 fL (80-100); Monocytes # (auto) 1.42 K/uL (0.11-0.59); Neutrophils # (auto) 10.44 K/uL (1.4-6.5); Neutrophils % (auto) 73.7 %; Platelet Count 262 K/uL (130-400); RDW Coefficient of Variation 13.7 % (11.5-14.5); RDW Standard Deviation 48.9 fL (36.4-46.3); Red Blood Count 4.74 M/uL (4.7-6.1); White Blood Count 14.16 K/uL (4.8-10.8)
[2019-09-24 07:11] LABS: BUN Creatinine Ratio 26.6 (10-20); Calcium 9.8 mg/dl (8.5-10.1); Creatinine Clr Calc Pharmacy 58.7 ml/min; Est GFR (Non-African American) 50.9; Magnesium 2.2 mg/dl (1.8-2.4); Potassium 3.4 mmol/L (3.5-5.1)
[2019-09-24] MEDS ORDERED: POTASSIUM CHLORIDE 20 MEQ TABCR PO STA ×2 (07:31→15:51)
[2019-09-24] MEDS: guaiFENesin 600 MG TABCR PO SCH (08:08)
[2019-09-24] MEDS: DULOXETINE HCL 60 MG CAP PO SCH (08:09)
[2019-09-24] MEDS: SPIRONOLACTONE 25 MG TAB PO SCH (08:09)
[2019-09-24] MEDS: ASPIRIN 81 MG ECTAB PO SCH (08:09)
[2019-09-24] MEDS: GABAPENTIN 600 MG TAB PO SCH (08:09)
[2019-09-24] MEDS: levETIRAcetam 500 MG TAB PO SCH (08:09)
[2019-09-24] MEDS: metOLazone 2.5 MG TABLET PO SCH (08:10)
[2019-09-24] MEDS: PANTOprazole 40 MG TAB PO SCH (08:10)
[2019-09-24] MEDS: RIVAROXABAN 15 MG TAB PO SCH (08:10)
[2019-09-24] MEDS: ATORVASTATIN 40 MG TAB PO SCH (08:10)
[2019-09-24] MEDS: LIDOCAINE 5% 1 PATCH TD SCH (08:10)
[2019-09-24] MEDS: POTASSIUM CHLORIDE 20 MEQ TABCR PO SCH (08:11)
[2019-09-24] MEDS: INSULIN ASPART 100 UNITS/ML 3 ML PEN SC SCH ×3 (08:11→17:22)
[2019-09-24 08:42] LABS: Estimated Average Glucose 209 mg/dl; Hemoglobin A1C 8.9 % (4.5-5.6)
[2019-09-24] MEDS ORDERED: INSULIN GLARGINE 100 UNIT/ML VIAL SC ONE (09:00)
[2019-09-24] MEDS ORDERED: METOPROLOL SUCC 50MG EXT REL TAB PO SCH (09:00)
--- NOTE | 2019-09-24 13:36 | Fluoroscopy Report ---
FL video swallow HISTORY: r/o aspiration TECHNIQUE: Video fluoroscopic evaluation of swallowing was performed in the AP and lateral projection s by the speech pathology staff. The patient is fed nectar-thick and thin liquid barium, a barium coa britany wafer, and barium pudding. FLUOROSCOPY TIME: 2.2 minutes. A cine loop was submitted.. COMPARISON STUDY: None. FINDINGS: There is normal hyoid excursion and epiglottic deflection. Trace silent aspiration with the thin liquid barium only. Moderate vallecular residue with the thicker barium consistencies. Mild eso phageal dysmotility. IMPRESSION: 1. Trace silent aspiration with the thin liquid barium only. 2. Please see the speech pathologist report for detailed findings and recommendations. ACT 112: Negative or not required by law. Electronically signed by: [place] M.D. 09/24/2019 1:35 PM
--- NOTE | 2019-09-24 14:45 | Pharmacy Report ---
Glycemic Control Progress Note - Date of Service September 24, 2019 - Scope Glycemic Pharmacist consulted for glycemic control to write orders per [facility] inpatient glycemic control protocol. - Objective Accuchecks BSG(last 24 hours):: 09/23/19 09/23/19 09/24/19 16:45 20:19 06:19 Glucose 88 POC Glucose 207 H 215 H 09/24/19 09/24/19 07:22 11:35 Glucose POC Glucose 92 184 H HbA1c:: Hemoglobin A1c 8.9 % (4.5-5.6) H 09/24/19 06:19 - Recent Pertinent Medications The patient is currently receiving: * Basal insulin: Lantus 50 units every 12 hours * Correctional Insulin: Novolog Correction per scale ACHS Goal Range: Low 110 mg/dL - High 140 mg/dL Correction Factor: 12 mg/dL/unit * Prandial insulin: Per carb ratio of 1 unit per 4 grams CHO consumed - Outpatient Anti-Diabetic Meds Lantus 120 units SQ BID Novolog 60 units TIDM plus scale (max of 240 units/day) Jardiance 10 mg daily - Assessment & Plan ASSESSMENT: * See progress note from 09/23/2019 for more background info, in short: * Pt receiving SQ basal bolus insulin regimen for hyperglycemia secondary to baseline DM (outpatient regimen on hold),stress/infection (cefepime). * Patient is currently receiving an average of 157 units of insulin per day (down from 240 units the past two days) * 100 units of basal insulin * 57 units of prandial/correctional insulin * BSGs ranging 71 - 223 mg/dl over the past 24hrs * Changes needed to insulin regimen: * AM Fasting BSG = 92 mg/dl. This is slightly below goal range for patient based on inpatient targets and co-morbidities. Basal insulin was halved yesterday. Expect that patient's basal needs may increase slightly. Scale for this evening with total daily Lantus dose of 90-110 units/day. * Post-prandial BSGs were elevated yesterday. Had expected BSGs to go down a fter lunch but they did not. Tighten CR. * Total daily dose = ~175 units. Increased insulin appropriately. * Additional notes / comments: Continue to hold oral meds PLAN FOR INPATIENT GLYCEMIC CONTROL: * Continuing Lantus 50 units SQ x 1 then 40-60 units SQ HS * Lantus 40 units if BSG less than 120 mg/dL * Lantus 50 units if BSG 120-180 mg/dL * Lantus 60 units if BSG greater than 180 mg/dL * Continuing correction factor of 12 mg/dl/unit * Changing carb ratio to 1 unit per 3 grams CHO consumed * Continuing goal range of Low 110 mg/dL - High 140 mg/dL RECOMMENDATIONS FOR DISCHARGE: * Patient works with Sera Kayla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 Recommend Tight follow-up with her. Thank you.
[2019-09-24] MEDS ORDERED: FUROSEMIDE 40 MG in SYRINGE 0 ML IV ONE (15:15)
--- NOTE | 2019-09-24 15:44 | Cardiology Consultation ---
Date of Consultation September 24, 2019 Assessment & Plan (1) Chronic systolic CHF (congestive heart failure): (2) CAD, multiple vessel: (3) Atrial fibrillation: (4) Hx of CABG: (5) Elevated troponin: (6) Cardiomyopathy: (7) Acute respiratory failure: (8) Presence of single chamber implantable cardioverter-defibrillator (ICD): ASSESSMENT/PLAN: 1. Chronic systolic/diastolic CHF: Volume status appears stable compared to his most recent outpatient visit in June of 2019. He is likely mildly hypervolemic but not in acute failure. His symptoms on presentation significantly improved with antibiotic therapy. Continue Lasix 40 mg daily. Other providers have also have had him on metolazone 2.5 mg daily. Continue spironolactone. Low-sodium diet. Monitor renal function and electrolytes periodically. 2. Acute respiratory failure: Likely due to pneumonia as he improved with antibiotic therapy. He did not receive diuretics until he was already significantly improved and back to his baseline. He was also febrile with leukocytosis on presentation and this also improved with antibiotic therapy. Treatment as per primary service. 3. CAD status post CABG: No angina. Continue aspirin, beta elías, statin therapy. 4. Cardiomyopathy: LV systolic function has mildly declined while acutely ill with respiratory distress from pneumonia. Primary service has replace metoprolol tartrate with metoprolol succinate. Entresto has replaced losartan. We discussed echo findings. Could consider ischemic evaluation in the future. For now, recommend medical therapy and repeating echo as an outpatient as he is asymptomatic with this change in LV systolic function. Inferior wall motion abnormality has been seen in the past. 5. Hypokalemia: Continue spironolactone and potassium supplementation as appropriate. 6. Hypertension: Blood pressure is acceptable. Changes have been made due to his reduced LV systolic function as above. 7. Dyslipidemia: Continue high-intensity statin therapy. 8. Atrial fibrillation: Permanent atrial fibrillation. Heart rate reasonably controlled. Asymptomatic. Continue anticoagulation for stroke risk reduction. Continue rate control strategy. 9. Ventricular tachycardia s/p ICD: Followed by EP. 10. Disposition: Can be discharged home from a cardiology perspective. Continue to follow with Cardiology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 Plan of care discussed with Dr. Hernández of the primary hospitalist service. Thank you for allowing me to participate in the care of your patient. Please call for any other questions or concerns. Sincerely, Mateusz Moore M.D. History of Present Illness Reason for Consultation: HFrEF Requesting Physician: Mario Alberto Hernández MD Attending Physician: Mario Alberto Hernández MD History of Present Illness Mr. Goodrich is a very pleasant 78-year-old gentleman with a history significant for CAD status post CABG x3, chronic diastolic CHF, sustained VT status post ICD, DJD, hypertension, dyslipidemia, peripheral arterial disease status post angioplasty of lower extremity, and diabetes. He also has a history of sleep apnea but was intolerant to CPAP therapy. In May of 2018, he had what is described as a mechanical fall and suffered cervical fracture, facial fractures, vertebral artery dissection and subdural hematoma. [place] went [place] [facility] [place] in rehab. Then on 06/04/2018, he presented to [facility] with sustained VT, which was thought to be from previous RCA territory infarct. He underwent ICD placement and was continued on beta-elías. He has had the following studies/procedures: 1. RCA PCI in 1991, 1998, in 2004 totaling 5 stents to proximal and mid RCA. 2. Atrial flutter ablation 2001. 3. Cardiac catheterization 08/28/08: LMCA 40-50%; proximal LAD 30%; mid LAD 60- 70%; distal LAD 30%. D1 60-70%. Ostial circumflex 60-70%. Proximal RCA 30% in- stent restenosis. Mid RCA in-stent restenosis 99%. PDA occluded. Left to right collaterals. 4. CABG times September 2008: SAINI to LAD; SVG to diagonal; SVG to PDA. 5. Echo 06/13/13: Normal LV size, wall motion, systolic function. EF 60-65%. Moderate LVH. Mild biatrial dilation. Sclerotic aortic valve without stenosis. 6. Nuclear stress 12/11/13: RCA infarct with a small area of mild distal RCA ischemia. EF 53%. Hypokinesis of inferior, inferoseptal, and inferolateral rosario. 7. Echo 04/25/14: Mildly dilated LV with normal systolic function. Basal inferior wall possibly hypokinetic. EF 55-60%. Moderate LVH. Type II diastolic dysfunction. Mild left atrial dilation. Sclerotic aortic valve without stenosis. 8. Echo 05/27/16: Normal LV systolic function. EF 60%. No definite wall motion abnormalities. Sclerotic aortic valve. Normal RVSP. 9. Echo 06/04/2018: Normal LV size with low-normal systolic function. EF 50- 55%. Mild left atrial dilation. Sclerotic aortic valve. 10. Single-chamber ICD 06/05/18: Placed for sustained VT. He was admitted on 09/21/2019 with pneumonia presenting with fever, leukocytosis, and respiratory distress requiring BiPAP initially. He was started on antibiotic therapy in within 24 hours felt much better. He then underwent echocardiogram which reported a mild reduction in LV systolic function. He was then diagnosed with acute systolic CHF and given a dose of IV diuretic, after significant improvement on antibiotic therapy. He has received 1 dose of IV diuretic. He states that his breathing is back to baseline and admits that he felt better before the diuretic. He denies orthopnea, chest pain, syncope, near-syncope, palpitations, or worsening edema. His weight has been stable at home and his edema has been stable as well. He remains sedentary due to chronic back pain which limits his exertion. [place] [facility]. He states that he maintains a low-sodium diet. He wants to go home today. Review of systems: As above. Review of systems otherwise negative/unremarkable. Family history: No known premature CAD. Social history: Quit smoking in 1989. No alcohol or drugs. . 4 daughters. Retired from [employer]. Enjoys hunting, but now just visits the camp. His daughters, Nikki and Sara, and , Jacklyn, have accompanied him to office visits in the past. He is alone today in his hospital room. Allergies Allergy/AdvReac Type Severity Reaction Status Date / Time No Known Drug Allergies Allergy Unknown NKDA Verified 09/20/19 23:16 Home Medications Home Medications Medication Instructions Recorded Confirmed Type cholecalciferol (vitamin D3) 1,000 unit PO QAM 05/15/18 09/20/19 History aspirin 81 mg PO QAM 06/04/18 09/20/19 History docusate sodium 100 mg capsule 100 mg PO BID PRN 01/09/19 09/20/19 History hydrocortisone-pramoxine 2.5 %-1 % 1 appln KS BID PRN #30 gm 01/09/19 09/20/19 Rx rectal cream lidocaine 5 % topical patch 1 patch TOP DAILY #90 ea 01/09/19 09/20/19 Rx lancets 28 gauge #25 ea 02/25/19 09/03/19 History nitroglycerin 0.4 mg sublingual 0.4 mg SUBLINGUAL Q5M PRN tab 02/25/19 09/20/19 History tablet Novolog U-100 Insulin aspart 100 See Rx Instructions SQ TID #22 03/04/19 09/20/19 Rx unit/mL subcutaneous solution vial NS MDD 240 units Lantus U-100 Insulin 100 unit/mL 120 units SUBCUT BID 90 Days #22 03/07/19 09/20/19 Rx subcutaneous solution vial NS atorvastatin 80 mg tablet 80 mg PO DAILY #90 tab 03/19/19 09/20/19 Rx gabapentin 300 mg capsule 600 mg PO BID #30 cap 03/19/19 09/20/19 Rx duloxetine 60 mg capsule,delayed 60 mg PO DAILY #90 cap 03/29/19 09/20/19 Rx release metolazone 2.5 mg tablet See Rx Instructions .ROUTE 04/11/19 09/20/19 Rx .COMPLEX #90 tablet furosemide 40 mg tablet 40 mg PO DAILY #90 tab 04/24/19 09/20/19 Rx rivaroxaban 15 mg tablet 15 mg PO DAILY #90 tab 05/31/19 09/20/19 Rx blood sugar diagnostic #350 ea 07/05/19 09/03/19 Rx levetiracetam 500 mg tablet 500 mg PO BID #180 tab 07/05/19 09/20/19 Rx fluorouracil 5 % topical cream 1 appln TOP ONCE 28 Days #40 gm 07/08/19 09/20/19 Rx potassium chloride 10 mEq 10 meq PO DAILY #90 cap 08/14/19 09/20/19 Rx capsule,extended release pantoprazole 40 mg tablet,delayed 40 mg PO BID #180 tab 08/20/19 09/20/19 Rx release montelukast 10 mg tablet 10 mg PO PM #90 tab 09/18/19 09/20/19 Rx Jardiance 10 mg PO DAILY 09/20/19 09/20/19 History cefdinir 300 mg PO BID 7 Days #14 cap 09/24/19 Rx metoprolol succinate 100 mg PO DAILY #30 tab 09/24/19 Rx sacubitril-valsartan [Entresto] 1 tab PO BID #60 tab 03/17/20 Rx spironolactone 25 mg PO BID #0 tab 09/24/19 09/20/19 Rx Patient History Medical History Actinic keratosis (Acute) Adult situational stress disorder (Acute) Anxiety Atrial fibrillation FOLLOWS Teto/ TERESA C4 cervical fracture (Acute) CAD (coronary artery disease) Carotid artery stenosis, asymptomatic (Acute) Chronic kidney disease, stage III (moderate) (Acute) Depression Enlarged prostate without lower urinary tract symptoms (luts) (Acute) External hemorrhoids (Acute) Gait disturbance (Acute) Gastroparesis (Acute) GERD (gastroesophageal reflux disease) Hearing deficit [place] 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 BRAIN BLEED + SKULL/FACIAL FRACTURES. RESOLVED W/O SURGICAL INTERVENTION. [facility]. 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 MOORE Insomnia (Acute) Kidney disease (Chronic) FOLLOWS W/ KOSTA NEPHRO Leukocytosis (Acute) Lumbar disc disease (Acute) Obesity (BMI 35.0-39.9 without comorbidity) (Acute) Osteoarthritis PAD (peripheral artery disease) (Acute) Paroxysmal ventricular tachycardia (Acute) Peripheral neuropathy (Acute) Poor historian HISTORY OBTAINED FROM [facility] - [facility] Rheumatoid nodule of left knee (Acute) Sinus bradycardia (Acute) Situational depression (Acute) Sleep apnea REFUSES CPAP/OXYGEN Subdural hematoma (Acute) Syncope (Acute) 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, with long-term current use of insulin (Acute) Uncontrolled type 2 diabetes mellitus with neurologic complication, with long- term current use of insulin (Acute) 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 History of cataract surgery History of cholecystectomy History of heart artery stent History of knee replacement LEFT Hx of CABG 2004. # VESSELS? 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 Alert. HEENT: Anicteric sclera. Neck: Thick neck. Cannot appreciate JVD. No bruit. Normal carotid upstrokes bilaterally. Cardiac: PMI was nonpalpable. No ventricular heave. Irregularly irregular. Heart rate well controlled. Normal S1-S2. 1/6 early peaking FELIX at RUSB. No rubs or gallops. Pulmonary: Decreased breath sounds bilaterally, but clear to auscultation bilaterally without wheezes, rales, or rhonchi. Abdomen: Obese. Soft, nontender, nondistended, with normoactive bowel sounds. No bruits noted. Extremities: 2+ radial pulses bilaterally. Weak distal lower extremity pulses. 1+ bilateral lower extremity edema (stable). No cyanosis. Psychiatric: Affect appears appropriate. Results & Data ([facility]) Vital Signs (Past 12 Hours) Vital Signs Temp Pulse Pulse Resp BP Pulse Ox 09/24/19 11:55 36.3 C L 90 20 149/63 H 92 09/24/19 07:48 87 09/24/19 07:23 36.5 C 86 20 143/68 H 93 09/24/19 04:36 36.5 C 77 20 135/64 95 Intake & Output 09/22/19 09/23/19 09/24/19 09/25/19 06:59 06:59 06:59 06:59 Intake Total 1005 / 1005 830 / 830 1060 / 1060 240 / 240 Output Total 650 / 650 2100 / 2100 Balance 355 / 355 830 / 830 -1040 / -1040 240 / 240 Weight 117.6 kg 116.1 kg 115.8 kg 115.8 kg Laboratory Results Laboratory Results - last 24 hr 09/23/19 09/23/19 09/23/19 16:45 16:45 20:19 WBC RBC Hgb Hct MCV MCH MCHC RDW Std Deviation RDW Coeff of Paulo Plt Count MPV Immature Gran % (Auto) Neut % (Auto) Lymph % (Auto) [place] % (Auto) Eos % (Auto) Baso % (Auto) Immature Gran # (Auto) Neut # (Auto) Lymph # (Auto) [place] # (Auto) Eos # (Auto) Baso # (Auto) Sodium Potassium Chloride Carbon Dioxide Anion Gap BUN Creatinine Est Cr Clr Drug Dosing Est GFR ( Amer) Est GFR (Non-Af Amer) BUN/Creatinine Ratio Glucose POC Glucose 207 H 215 H Estimat Average Glucose Hemoglobin A1c Calcium Magnesium Adenovirus (PCR) Not Detected B. pertussis DNA (PCR) Not Detected B.parapertussis DNA PCR Not Detected C. pneumoniae DNA (PCR) Not Detected Coronavirus OC43 (PCR) Not Detected Coronavirus HKU1 (PCR) Not Detected Coronavirus 229E (PCR) Not Detected Coronavirus NL63 (PCR) Not Detected Human Metapneumovir PCR Not Detected Influenza Type A (PCR) Not Detected Influenza Type B (PCR) Not Detected M. pneumoniae (PCR) Not Detected Parainfluenza 1 (PCR) Not Detected Parainfluenza 2 (PCR) Not Detected Parainfluenza 3 (PCR) Not Detected Parainfluenza 4 (PCR) Not Detected RSV (PCR) Not Detected Entero/Rhino (PCR) Not Detected 09/24/19 09/24/19 09/24/19 06:19 06:19 06:19 WBC 14.16 H RBC 4.74 Hgb 15.1 Hct 45.7 MCV 96.4 MCH 31.9 MCHC 33.0 RDW Std Deviation 48.9 H RDW Coeff of Paulo 13.7 Plt Count 262 MPV 11.0 H Immature Gran % (Auto) 0.4 Neut % (Auto) 73.7 Lymph % (Auto) 14.2 [place] % (Auto) 10.0 Eos % (Auto) 1.5 Baso % (Auto) 0.2 Immature Gran # (Auto) 0.05 H Neut # (Auto) 10.44 H Lymph # (Auto) 2.01 [place] # (Auto) 1.42 H Eos # (Auto) 0.21 Baso # (Auto) 0.03 Sodium 137 Potassium 3.4 L Chloride 97 L Carbon Dioxide 33 H Anion Gap 7.0 BUN 35 H Creatinine 1.32 Est Cr Clr Drug Dosing 58.7 Est GFR ( Amer) 59.0 Est GFR (Non-Af Amer) 50.9 BUN/Creatinine Ratio 26.6 H Glucose 88 POC Glucose Estimat Average Glucose 209 Hemoglobin A1c 8.9 H Calcium 9.8 Magnesium 2.2 Adenovirus (PCR) B. pertussis DNA (PCR) B.parapertussis DNA PCR C. pneumoniae DNA (PCR) Coronavirus OC43 (PCR) Coronavirus HKU1 (PCR) Coronavirus 229E (PCR) Coronavirus NL63 (PCR) Human Metapneumovir PCR Influenza Type A (PCR) Influenza Type B (PCR) M. pneumoniae (PCR) Parainfluenza 1 (PCR) Parainfluenza 2 (PCR) Parainfluenza 3 (PCR) Parainfluenza 4 (PCR) RSV (PCR) Entero/Rhino (PCR) 09/24/19 09/24/19 07:22 11:35 WBC RBC Hgb Hct MCV MCH MCHC RDW Std Deviation RDW Coeff of Paulo Plt Count MPV Immature Gran % (Auto) Neut % (Auto) Lymph % (Auto) [place] % (Auto) Eos % (Auto) Baso % (Auto) Immature Gran # (Auto) Neut # (Auto) Lymph # (Auto) [place] # (Auto) Eos # (Auto) Baso # (Auto) Sodium Potassium Chloride Carbon Dioxide Anion Gap BUN Creatinine Est Cr Clr Drug Dosing Est GFR ( Amer) Est GFR (Non-Af Amer) BUN/Creatinine Ratio Glucose POC Glucose 92 184 H Estimat Average Glucose Hemoglobin A1c Calcium Magnesium Adenovirus (PCR) B. pertussis DNA (PCR) B.parapertussis DNA PCR C. pneumoniae DNA (PCR) Coronavirus OC43 (PCR) Coronavirus HKU1 (PCR) Coronavirus 229E (PCR) Coronavirus NL63 (PCR) Human Metapneumovir PCR Influenza Type A (PCR) Influenza Type B (PCR) M. pneumoniae (PCR) Parainfluenza 1 (PCR) Parainfluenza 2 (PCR) Parainfluenza 3 (PCR) Parainfluenza 4 (PCR) RSV (PCR) Entero/Rhino (PCR) Diagnostic Findings Telemetry personally reviewed: Atrial fibrillation. Echo 09/23/2019: Normal left ventricular size with moderately reduced systolic function. Estimated EF 40%. Global hypokinesis with severe hypokinesis of the inferior wall. Moderate LVH. Reduced RV systolic function. Sclerotic aortic valve. CT chest 09/20/2019: Bilateral pleural effusions and moderately extensive multifocal bilateral airspace opacities. Increasing mediastinal lymphadenopathy. Medications Administered Current Inpatient Medications Acetaminophen (Tylenol) 650 mg PO Q6H PRN PRN Reason: Pain/fever Stop: 10/22/19 02:22 Last Admin: 09/22/19 20:54 Dose: 650 mg Documented by: Albuterol (Ventolin 0.5% 2.5mg/0.5ml) 2.5 mg NEB Q2H PRN PRN Reason: SOB/Wheeze Stop: 10/21/19 01:21 Aspirin (Ecotrin Ectab) 81 mg PO QAM [facility] Stop: 10/21/19 08:59 Last Admin: 09/24/19 08:09 Dose: 81 mg Documented by: Atorvastatin Calcium (Lipitor) 80 mg PO DAILY [facility] Stop: 10/21/19 08:59 Last Admin: 09/24/19 08:10 Dose: 80 mg Documented by: Cefdinir (Omnicef Cap) 300 mg PO BID [facility]; Protocol Stop: 09/28/19 20:59 Dextrose (Dextrose 50%) 25 - 50 ml IV UD PRN; Protocol PRN Reason: Hypoglycemia Protocol Stop: 10/21/19 01:21 Docusate Sodium (Colace) 100 mg PO BID PRN PRN Reason: Constipation Stop: 10/21/19 01:21 Duloxetine HCl (Cymbalta) 60 mg PO DAILY [facility] Stop: 10/21/19 08:59 Last Admin: 09/24/19 08:09 Dose: 60 mg Documented by: Gabapentin (Neurontin) 600 mg PO BID [facility] Stop: 10/21/19 08:59 Last Admin: 09/24/19 08:09 Dose: 600 mg Documented by: Glucagon (Glucagen) 1 mg SQ UD PRN; Protocol PRN Reason: Hypoglycemia Protocol Stop: 10/21/19 01:21 Glucose (Dex4 Glucose) 4 - 8 tabs PO UD PRN; Protocol PRN Reason: Hypoglycemia Protocol Stop: 10/21/19 01:21 Glucose (Glucose 40%) 15 - 30 gm PO UD PRN; Protocol PRN Reason: Hypoglycemia Protocol Stop: 10/21/19 01:21 Guaifenesin (Mucinex) 1,200 mg PO Q12 [facility] Stop: 10/21/19 08:59 Last Admin: 09/24/19 08:08 Dose: 1,200 mg Documented by: Insulin Aspart (Novolog Flexpen) 0 units SC ACHS [facility] Stop: 10/21/19 07:29 Last Admin: 09/24/19 12:39 Dose: 15 units Documented by: Insulin Glargine (Lantus Solostar Pen) 0 units SC HS [facility]; Protocol Stop: 09/24/19 21:01 Levetiracetam (Keppra) 500 mg PO BID [facility] Stop: 10/21/19 08:59 Last Admin: 09/24/19 08:09 Dose: 500 mg Documented by: Lidocaine (Lidoderm 5%) 1 patch TD DAILY [facility] Stop: 10/21/19 08:59 Last Admin: 09/24/19 08:10 Dose: 1 patch Documented by: Metolazone (Zaroxolyn) 2.5 mg PO Q24H [facility] Stop: 10/21/19 07:29 Last Admin: 09/24/19 08:10 Dose: 2.5 mg Documented by: Metoprolol Succinate (Toprol Xl) 200 mg PO QAM [facility] Stop: 10/25/19 08:59 Miscellaneous (Order Awaiting Action) 1 ea N/A QS [facility] Stop: 10/21/19 07:59 Last Admin: 09/24/19 08:06 Dose: Not Given Documented by: Miscellaneous (Remove Lidoderm Patch) 1 ea N/A DAILY@2100 [facility] Stop: 10/21/19 01:21 Last Admin: 09/23/19 21:52 Dose: 1 ea Documented by: Miscellaneous (Carbohydrates For Hypoglycemia) 15 - 30 gm PO UD PRN PRN Reason: Hypoglycemia Protocol Stop: 10/21/19 01:21 Miscellaneous Information (Consult Glycemic Management Pharmacy) 1 ea N/A UD PRN PRN Reason: Consult Stop: 10/23/19 08:06 Montelukast Sodium (Singulair) 10 mg PO PM [facility] Stop: 10/21/19 20:59 Last Admin: 09/23/19 20:38 Dose: 10 mg Documented by: Pantoprazole Sodium (Protonix) 40 mg PO BID [facility] Stop: 10/21/19 08:59 Last Admin: 09/24/19 08:10 Dose: 40 mg Documented by: Rivaroxaban (Xarelto) 15 mg PO DAILY [facility] Stop: 10/21/19 08:59 Last Admin: 09/24/19 08:10 Dose: 15 mg Documented by: Sacubitril/Valsartan (Entresto 24/26mg) 1 tab PO BID [facility] Stop: 10/24/19 20:59 Spironolactone (Aldactone) 50 mg PO BID [facility] Stop: 10/24/19 20:59 PG Care Time/CCT Total # of Minutes Spent Total Time Spent with Patient: Total time spent is greater than 50% in coordination of care (as documented) at patient's floor/unit and/or counseling patient: Coding Level of Care Code 41399 Initial Inpt Care Lvl 3 Diagnoses Chronic systolic CHF (congestive heart failure) I50.22 CAD, multiple vessel I25.10 Atrial fibrillation I48.91 Atrial fibrillation type: unspecified Hx of CABG Z95.1 Elevated troponin R79.89 Cardiomyopathy I42.9 Acute respiratory failure J96.01; J96.02 Respiratory failure complication: hypoxia and hypercapnia Presence of single chamber implantable cardioverter-defibrillator (ICD) Z95.810 (1) Atrial fibrillation Atrial fibrillation type: unspecified Qualified Code(s): I48.91 - Unspecified atrial fibrillation (2) Acute respiratory failure Respiratory failure complication: hypoxia and hypercapnia Qualified Code(s): J96.01 - Acute respiratory failure with hypoxia; J96.02 - Acute respiratory failure with hypercapnia
--- NOTE | 2019-09-24 16:08 | Discharge Summary ---
Date of Service September 24, 2019 Admission HPI Per Admitting Provider Marito Goodrich is a 78-year-old male with multiple medical problems presenting from home with fever and respiratory distress. + Cough + shortness of breath + confusion. + Hypoxia with saturations in the 70s by EMS report. Patient was hospitalized in July for pneumonia. Completed appropriate therapy and improved. Admission Exam Per Admitting Provider General: patient resting comfortably, chronically ill in appearance, oriented to self and location Skin: warm, dry, intact, no rashes or lesions HEENT: NC/AT, regular, reactive, EOMI, anicteric sclera, conjunctiva without injection, external ear normal to inspection and nontender, nares patent, dry mucus membranes, dentition intact, no oropharyngeal lesions, neck supple, trachea midline, no LAD, no thyromegaly, no JVD Heart: +S1/S2, regular, no m/r/g Lungs: equal air entry bilaterally, + crackles mid lung moreira bilaterally Abd: +BS, soft, NT/ND, no masses/organomegaly/ascites Ext: warm, 2+ pulses in UE/LE bilaterally, no clubbing/cyanosis, + pitting edema to knees Neuro: nonfocal, patient AA&O x 2, speech intact, no facial droop, moving all extremities on command with equal strength 5/5 Principal Diagnosis Multifocal pneumonia Atrial fibrillation with rapid ventricular rate Acute on chronic heart failure with reduced ejection fraction Hypoxia Discharge Exam Constitutional well developed and well nourished; no acute distress Eyes + anicteric sclerae; normal pupil size ENMT external ear and nose normal, oropharynx normal Neck trachea midline Respiratory normal respiratory effort, lungs clear to auscultation Cardiovascular Rate/Rhythm: regular rate and regular rhythm Heart Sounds: no murmur Extremities: normal capillary refill and + pedal edema (2+ b/l to mid shins); no calf tenderness Gastrointestinal (Abdomen) normal bowel sounds, soft, nontender, no hepatosplenomegaly Skin no rashes, warm and dry Neurologic moves all extremities and awake Psychiatric Orientation: alert and oriented x 3 Affect: + irritable affect Discharge Data Allergies Allergy/AdvReac Type Severity Reaction Status Date / Time No Known Drug Allergies Allergy Unknown NKDA Verified 09/20/19 23:16 Consultations 09/20/19 23:15 ED Decision to Admit Stat 09/23/19 19:31 Consult Cardiology Routine Ordered Studies 09/20/19 21:52 CT head/brain wo con Stat 09/20/19 21:56 CT chest wo con Stat 09/24/19 11:30 FL video swallow Routine Hospital Course (1) Acute respiratory failure: Wilber Goodrich is a 78 tear old male admitted to [facility] from September 19 to 2019 due to fever, chills, confusion and shortness of breath. He was diagnosed with multifocal pneumonia that responded to antibiotics with quick resolution in his symptoms. On arrival his atrial fibrillation had a rapid ventricular rate. Rate responded to treatment for the pneumonia. Discharged on oral antibiotics. Given history, CT findings, quick resolution, no concern for COVID-19. Echocardiogram showed LVEF reduced LVEF 40% with wall motion abnormalities. Therefore metoprolol tartrate switched to succinate and losartan to Entresto. Mild pulmonary edema related to rapid rate was treated with IV Lasix. Same dose of Lasix and spironolactone. He was also noted to have coughing episodes after eating. He was seen by speech and language therapy and underwent a video swallow showing silent aspirations. See separate discharge instructions regarding this. On day prior to discharge he required only 100 units of Lantus twice a day and 57 units of Novolog. HbA1C 8.9. No change to outpatient dosing and recommend following up with Sera Kayla if having significant high or low values. Medication list also stated he was taking both Farxiga and Jardiance - he should only be on one of these and since the last one filled was Jardiance, Farxiga has been discontinued. 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, with long-term current use of insulin: (10) Hypertension: (11) Dyslipidemia: (12) Chronic kidney disease, stage III (moderate): (13) Atrial fibrillation: (14) Peripheral neuropathy: Total Time Total Time Spent Total Time Spent (In Minutes): 45 Total Time Includes: Examination of the Patient, Discharge Planning, Medication Reconciliation and Communication With Other Providers (Dr Doran) Discharge Plan Discharge Items Patient Disposition: Home - Home Health Services Reason For Visit: PNA Discharge Diagnosis: Multifocal pneumonia Atrial fibrillation with rapid ventricular rate Acute on chronic heart failure with reduced ejection fraction Hypoxia Condition on Discharge: Critical Activity: Resume your previous activity Non-emergency contact: Primary Care Provider Call non-emergency contact if: you have any medication questions and your symptoms worsen Follow-up/Referrals: Ron Aguilera MD [Primary Care Provider] - 09/30/19 10:30 am (Dr Aguilera does not have any appointments next week, so your hospital follow up is scheduled with Kassandra Palmer PA-C on Monday09/30/2019 at 10:30am at the [facility]) Buster Doran MD [Physician] - (within 4 weeks) Dietitian Info: Easy to chew, slippery, no straws Diet: Carb Consistent or DM2 and Low Sodium (2gm) Fluids: 1500ml (6 cups) Addtl Attending Provider Instructions: You were admitted to [facility] from September 19 to 2019 due to fever, chills, confusion and shortness of breath. You were diagnosed with multifocal pneumonia that responded to antibiotics with quick resolution in you symptoms. You were also diagnosed with atrial fibrillation with rapid ventricular rate. Your rate responded to treatment for the pneumonia and you should continue treatment for this with antibiotics prescribed. Echocardiogram did show a reduced ejection fraction with wall motion abnormalities and review by your fig washer recommended switching metoprolol tartrate to succinate and losartan to Entresto to better manage this. You also developed mild pulmonary edema (fluid on your lungs) which was treated with intravenous Lasix. On discussion with your fig washer, on discharge we will keep you on the same doses of lasix and spironolactone. You were also noted to have coughing episodes after eating. You were seen by speech and language therapy and underwent a video swallow showing silent aspirations. See separate discharge recommendations Of note you required much lower doses of insulin while admitted. Likely due to reduced carbohydrates. On day prior to admission you required only 100 units of Lantus twice a day and 57 units of Novolog. Since your hemoglobin A1C is 8.9 we have not changed any outpatient dosing and recommend following up with Sera Garza if you are having significant high or low values. Your medication list also stated you were taking both Farxiga and Jardiance - you should only be on one of these and since the last one filled was Jardiance, Farxiga has been discontinued. Please follow up as above. Pending Studies at Discharge: Yes (Urine legionella test pending at this time) Stand-Alone Forms: My [facility], Smoking Cessation Medications and DC Order Prescriptions: New metoprolol succinate 100 mg tablet extended release 24 hr 100 mg PO DAILY Qty: 30 RF: 0 Entresto 24-26 mg tablet 1 tab PO BID Qty: 60 RF: 0 Continued atorvastatin 80 mg tablet 80 mg PO DAILY Qty: 90 RF: 3 gabapentin 300 mg capsule 600 mg PO BID Qty: 30 RF: 0 metolazone 2.5 mg tablet See Rx Instructions .ROUTE .COMPLEX Qty: 90 RF: 4 furosemide 40 mg tablet 40 mg PO DAILY Qty: 90 RF: 3 Xarelto 15 mg tablet 15 mg PO DAILY Qty: 90 RF: 3 levetiracetam 500 mg tablet 500 mg PO BID Qty: 180 RF: 4 (DME) FreeStyle Lite Strips strip See Dose Instructions .ROUTE .MEDSUPPLY Qty: 350 RF: 3 pantoprazole 40 mg tablet,delayed release (DR/EC) 40 mg PO BID Qty: 180 RF: 1 montelukast 10 mg tablet 10 mg PO PM Qty: 90 RF: 3 docusate sodium 100 mg capsule 100 mg PO BID PRN (Reason: Constipation) RF: 0 hydrocortisone-pramoxine 2.5-1 % cream 1 appln CA BID PRN (Reason: itching) Qty: 30 RF: 0 lidocaine [Lidoderm] 5 % adhesive patch,medicated 1 patch TOP DAILY Qty: 90 RF: 0 (DME) lancets [FreeStyle Lancets] 28 gauge misc See Dose Instructions .ROUTE .MEDSUPPLY Qty: 25 RF: 0 fluorouracil 5 % cream 1 appln TOP ONCE 28 Days Qty: 40 RF: 0 potassium chloride 10 mEq capsule, extended release 10 meq PO DAILY Qty: 90 RF: 3 Novolog U-100 Insulin aspart 100 unit/mL solution See Rx Instructions SQ TID MDD 240 units Qty: 22 RF: 3 Lantus U-100 Insulin 100 unit/mL solution 120 units subcut BID 90 Days Qty: 22 RF: 3 cholecalciferol (vitamin D3) 1,000 unit Capsule 1,000 unit PO QAM RF: 0 nitroglycerin [Nitrostat] 0.4 mg tablet, sublingual 0.4 mg Sublingual Q5M PRN (Reason: Chest Pain) RF: 0 aspirin 81 mg Tablet,Delayed Release (Dr/Ec) 81 mg PO QAM RF: 0 Jardiance 10 mg Tablet 10 mg PO DAILY RF: 0 spironolactone 25 mg Tablet 25 mg PO BID Qty: 0 RF: 0 Discontinued metoprolol tartrate 50 mg tablet 50 mg PO BID Qty: 180 RF: 3 Farxiga 5 mg Tablet 5 mg PO DAILY RF: 0 losartan 25 mg Tablet 25 mg PO DAILY RF: 0 No Action duloxetine 60 mg capsule,delayed release(DR/EC) 60 mg PO DAILY Qty: 90 RF: 3 Discharge Orders: Discharge Order (Routine); Ordered 09/24/19 Ordered By: Mario Alberto Rangel/Other Patient Handouts: Pneumonia Dc Admission Data Admit Date/Time: 09/21/19 00:10 Attending Provider: Mario Alberto Hernández Admit Provider: Taylor Fowler Primary Care Provider: Ron Aguilera Other Providers: Taylor Fowler ; Buster Doran Other Interventions: Discharge Summary Assessment (RN) Last Done: 09/24/19 16:16 DC Date/Time DO NOT enter until pt leaves facility: 09/24/19 18:15 Coding Level of Care Code D/C Day Management >30 mins Diagnoses Acute respiratory failure J96.01; J96.02 Respiratory failure complication: hypoxia and hypercapnia Pneumonia J18.9 Laterality: bilateral Lung location: unspecified part of lung Pneumonia type: due to unspecified organism Aspiration of food T17.920A Encounter type: initial encounter Sepsis A41.9 Sepsis acute organ dysfunction status: unspecified Sepsis type: sepsis due to unspecified organism Acute HFrEF (heart failure with reduced ejection fraction) I50.21 Elevated troponin R79.89 Demand ischemia I24.8 CAD (coronary artery disease) of artery bypass graft I25.810 Associated angina: without angina [place] vs. 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
[2019-09-24] MEDS ORDERED: INSULIN GLARGINE SOLOSTAR 100 UNITS/ML 3 ML PEN SC SCH (21:00)
[2019-09-24] MEDS ORDERED: SACUBITRIL-VALSARTAN 24-26 MG TAB PO SCH (21:00)
[2019-09-24] MEDS ORDERED: CEFDINIR 300 MG CAP PO SCH (21:00)
[2019-09-24] MEDS ORDERED: SPIRONOLACTONE 25 MG TAB PO SCH (21:00)
[2019-09-25] MEDS ORDERED: METOPROLOL SUCC 50MG EXT REL TAB PO SCH (09:00)
== END 2019-09-24 18:15 | disposition home health service (06) | DRG 871 ==
LOC: ED 21:22 → SUATTDRO 09-21 00:10 → 2S 09-21 00:10 → 2E 09-23 15:45 → 2N 09-24 10:47

== ENCOUNTER 2020-12-05 20:40 | Inpatient (IN) ==
[2020-12-05] MEDS ORDERED: FUROSEMIDE 40 MG/4 ML VIAL IV STA (20:58)
--- NOTE | 2020-12-05 21:11 | Emergency Department Note ---
History of Present Illness General Chief complaint: Shortness of Breath/Dyspnea Stated complaint: TROUBLE BREATHING Time Seen by Provider: 12/05/20 20:51 Source: patient History of Present Illness Provider complaint: Shortness of breath and chest pain Onset (ago): day(s) Location: chest Radiation: non-radiation Pain Consistency: + constant Maximum Pain Intensity: 7 Quality: + other (Tightness) Relieved By: + none Associated symptoms: + chest pain, + cough and + shortness of breath; no diaphoresis, no fever/chills, no headaches and no nausea/vomiting This is an 79-year-old male with a history of heart failure presenting with s hortness of breath since yesterday. The patient states that he started coughing as well. He has a cough and sometimes brings up some blood. He also complains of chest pain. He describes it as a tightness over his anterior chest without radiation. No modifying factors. He states that he has had chest pain for some time and does not remember exactly when he last had it or how long he has had i t. He does state that the difficulty breathing got much worse yesterday. He also has swelling to his legs and he is on Lasix for this. He has had bypass surgery for his heart and has a pacemaker as well. He denies any fever, abdominal pain, vomiting or diarrhea. He denies any black or bloody stool. Home Medications Medication Instructions Recorded Confirmed Type aspirin 81 mg PO QAM 06/04/18 12/05/20 History nitroglycerin 0.4 mg sublingual 0.4 mg SUBLINGUAL Q5M PRN tab 02/25/19 12/05/20 History tablet blood sugar diagnostic #350 ea 07/05/19 11/17/20 Rx pantoprazole 40 mg tablet,delayed 40 mg PO BID #180 tab 02/21/20 12/05/20 Rx release insulin syringe-needle U-100 1 mL #500 ea 03/09/20 11/17/20 Rx 31 gauge x 11/22" cholecalciferol (vitamin D3) 50 4,000 unit PO QAM cap 04/22/20 12/05/20 History mcg (2,000 unit) capsule gabapentin 300 mg capsule 600 mg PO BID #56 cap 06/04/20 12/05/20 Rx Xarelto 15 mg PO QPM 10/21/20 12/05/20 History atorvastatin 80 mg PO HS 10/21/20 12/05/20 History duloxetine 60 mg PO QAM 10/21/20 12/05/20 History furosemide 40 mg PO BID 10/21/20 12/05/20 History metoprolol succinate 100 mg PO QAM 10/21/20 12/05/20 History montelukast 10 mg PO HS 10/21/20 12/05/20 History blood-glucose meter,continuous #1 ea 11/10/20 11/17/20 History blood-glucose sensor #3 ea 11/10/20 11/17/20 History blood-glucose transmitter #1 ea 11/10/20 11/17/20 History insulin glargine 100 unit/mL 75 unit SUBCUT BID ml 11/10/20 12/05/20 History subcutaneous solution spironolactone 25 mg tablet 25 mg PO DAILY tab 11/10/20 12/05/20 History lisinopril 5 mg tablet 5 mg PO QAM #30 tab 11/17/20 12/05/20 Rx insulin aspart U-100 [Novolog 65 unit SQ QID 12/05/20 12/05/20 History U-100 Insulin aspart] Allergies Allergy/AdvReac Type Severity Reaction Status Date / Time No Known Drug Allergies Allergy Unknown NKDA Verified 12/05/20 21:49 Past Med/Surg History Medical History Adult situational stress disorder Anxiety Atrial fibrillation no cardioversion. C4 cervical fracture no surgical intervention. Full ROM. CAD (coronary artery disease) Carotid artery stenosis, asymptomatic Chronic kidney disease, stage III (moderate) Depression Dysphagia occasionally (per ) Gastroparesis GERD (gastroesophageal reflux disease) Hearing deficit [place] 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 BRAIN BLEED + SKULL/FACIAL FRACTURES. RESOLVED W/O SURGICAL INTERVENTION. [facility]. Hyperlipidemia Hypertension ICD (implantable cardioverter-defibrillator) in place placed ~2017. Follows with Dr. Doran, last saw 10/20/20 Insomnia Kidney disease FOLLOWS W/ [place] NEPHRO Lumbar disc disease Osteoarthritis PAD (peripheral artery disease) Paroxysmal ventricular tachycardia Peripheral neuropathy Pneumonia hx. Poor historian history obtained from , Jacklyn. Sinus bradycardia Situational depression Sleep apnea REFUSES CPAP/OXYGEN Spinal stenosis Subdural hematoma (~2018) history r/t fall Venous insufficiency Surgical History History of anesthesia reaction COMBATIVE History of back surgery History of cardiac cath MULTIPLE CATHS W/ STENTS - LAST 2004. History of cataract surgery History of cholecystectomy History of colonoscopy History of heart artery stent Total of 5 stents. History of knee replacement LEFT Hx of CABG 2004. # VESSELS? FOLLOWS W/ SYZMANSKI S/P epidural steroid injection S/P ICD (internal cardiac defibrillator) procedure Family History Daughter Family history of reaction to anesthesia PONV Sister Cancer Other No significant family history Denies family history of Ovarian cancer Prostate cancer Coronary heart disease Breast cancer Colorectal cancer Social History Smoking Status: Former smoker Second Hand Exposure: No; Hx Alcohol Use: No Hx Substance Use: No Preferred Language: Kyrgyz Communication Ability: Effective Visual Impairment: Limited Hearing Ability: Hard of Hearing [place] Required: No Beliefs That Will Affect Care: None marital status: Current Living Situation: Spouse current occupational status: retired Feels Safe at Home: Yes Childhood Exposure to Second-Hand Smoke: Yes caffeine: No during the past year weight has: remained stable Dental Care, Regularly: Yes Physical Activity Frequency: Does not Exercise Seatbelt Use: always Sunscreen Use: No Assistive Devices: Cane, Denture - Upper, Denture - Lower, Glasses and Walker Review of Systems See HPI for pertinent positives & negatives. and A total of 10 systems reviewed and were otherwise negative Physical Exam Vital Signs Vital Signs - 24 hr 12/05/20 20:41 12/05/20 21:00 12/05/20 21:35 Temperature 36.6 C Temperature Source Temporal Artery Scan Pulse Rate 97 H 124 H 120 H Respiratory Rate 20 35 H 32 H Respiratory Effort / Characteristics Accessory Muscle Use Labored [place] Short of Breath Respiratory Depth Normal Respiratory Pattern Tachypnea Blood Pressure 181/122 H Blood Pressure Mean 141 Pulse Oximetry 75 L 92 96 Oxygen Delivery Method Room Air Oxygen Flow Rate Fraction of Inspired Oxygen 50 50 Sepsis Recent Fever Within 48 Hours No Sepsis New/Unexplained Change in Mental Status No Sepsis Action Taken by Nursing No Action Required 12/05/20 21:45 Temperature Temperature Source Pulse Rate Respiratory Rate Respiratory Effort / Characteristics Accessory Muscle Use Labored Short of Breath Tripoding Respiratory Depth Shallow Respiratory Pattern Tachypnea Blood Pressure Blood Pressure Mean Pulse Oximetry 90 Oxygen Delivery Method CPAP Oxygen Flow Rate 10 Fraction of Inspired Oxygen 50 Sepsis Recent Fever Within 48 Hours Sepsis New/Unexplained Change in Mental Status Sepsis Action Taken by Nursing Constitutional: Vital signs reviewed. The patient is in respiratory distress. He is tachypneic and hypoxemic. Eyes: Pupils are equal round reactive to light. Conjunctiva are noninjected. ENT: Pharynx is clear without erythema or exudate. Mucous membranes are moist. Neck supple without meningeal signs. Respiratory: Crackles up to the midlung moreira and poor air entry bilaterally. Cardiovascular: Irregularly irregular rhythm with tachycardia. Heart rate 128. GI: Soft, nondistended and nontender. Bowel sounds are present. Musculoskeletal: Bilateral pitting edema greater on the right side. No lower extremity tenderness. Integumentary: No cyanosis. or jaundice. Neurological: The patient is awake and alert. No focal deficits other than very hard of hearing. Psychiatric: Normal affect. Course Administered Medications Discontinued Medications Furosemide (Furosemide 40 Mg/4 Ml Vial) 40 mg IV NOW STA Stop: 12/05/20 20:59 Last Admin: 12/05/20 21:31 Dose: 40 mg Documented by: [id number] Nitroglycerin/Dextrose (Nitroglycerin/D5w 100 Mcg/Ml) 250 mls @ 6 mls/hr IV .Q24H NASREEN Stop: 01/04/21 21:29 Last Infusion: 12/05/20 21:57 Dose: 0 mcg/min, 0 mls/hr Documented by: [id number] Admin: 12/05/20 21:34 Dose: 10 mcg/min, 6 mls/hr Documented by: [id number] Cosigned by: [id number] Piperacillin Sod/Tazobactam Sod (Zosyn) 4.5 gm in 120 mls @ 240 mls/hr IV NOW ONE Stop: 12/05/20 22:00 Last Infusion: 12/05/20 23:05 Dose: 0 mls/hr Documented by: [id number] Admin: 12/05/20 22:45 Dose: 240 mls/hr Documented by: [id number] Miscellaneous (Stat Iv Infusion Titration Per Protocol) 1 ea N/A NOW STA Stop: 12/05/20 21:20 Last Admin: 12/05/20 21:44 Dose: 1 ea Documented by: [id number] Nitroglycerin (Nitroglycerin 2% Ointment 30gm Tube) 2 inch EXT NOW STA Stop: 12/05/20 21:52 Last Admin: 12/05/20 22:45 Dose: 2 inch Documented by: [id number] Critical Care Time Critical Care Time: Yes Total Critical Care Time: 45 I have personally spent approximately 45 minutes of critical care time in the direct management of this patient. This includes bedside care, interpretation of diagnostic studies, and testing, discussion with consultants, patient, and family members, and other required patient management activities. These minutes are in excess of all separately billable procedures. Medical Decision Making Differential Diagnosis Respiratory failure, acute exacerbation of CHF, COPD, pulmonary edema, pulmonary embolism Medical Records Attestation: I reviewed the patient's medical records. I did perform a limited focused review of portions of the patient's old chart on the electronic medical record. The patient was seen at the heart failure clinic December 02. He has chronic diastolic and systolic heart failure as well as atrial fibrillation for which they state he is anticoagulated. Home Medications Current Medication List: was personally reviewed by me Laboratory Data Attestation: I reviewed the patient's lab results. Result diagrams: 12/05/20 21:02 12/05/20 21:02 Lab Results 12/05/20 12/05/20 12/05/20 Range/Units 21:02 21:02 21:02 WBC 22.07 H (4.8-10.8) K/uL RBC 4.49 L (4.7-6.1) M/uL Hgb 14.5 (14.0-18.0) g/dL POC Hgb (14.0-18.0) g/dl Hct 43.1 (42-52) % POC Hct (42-52) % MCV 96.0 (80-100) fL MCH 32.3 (25-34) pg MCHC 33.6 (32-36) g/dL RDW Std Deviation 50.1 H (36.4-46.3) fL RDW Coeff of Paulo 14.3 (11.5-14.5) % Plt Count 328 (130-400) K/uL MPV 10.8 H (7.4-10.4) fL Immature Gran % (Auto) 0.4 % Neut % (Auto) 83.4 % Lymph % (Auto) 7.1 % [place] % (Auto) 8.6 % Eos % (Auto) 0.4 % Baso % (Auto) 0.1 % Neut # (Auto) 18.42 H (1.4-6.5) K/uL Lymph # (Auto) 1.56 (1.2-3.4) K/uL [place] # (Auto) 1.90 H (0.11-0.59) K/uL Eos # (Auto) 0.08 (0-0.5) K/uL Baso # (Auto) 0.02 (0-0.2) K/uL Immature Gran # (Auto) 0.09 H (0.00-0.02) K/uL PT 10.7 (9.0-12.0) Seconds INR 1.1 (0.9-1.1) APTT 28.8 (21.0-31.0) Seconds PTT Ratio 1.1 ABG pH (7.35-7.45) ABG pCO2 (35-46) mmHg ABG pO2 (80-95) mmHg ABG HCO3 (19-24) mmol/L ABG O2 Saturation (90-95) % ABG Base Excess (-9-1.8) mEq/L Jeffrey Test (Pos) Barometric Pressure mm/Hg Oxygen Given POC Sodium (135-144) mmol/L Sodium 138 (136-145) mmol/L POC Potassium (3.3-5.0) mmol/L Potassium 3.5 (3.5-5.1) mmol/L POC Chloride (101-112) mmol/L Chloride 98 (98-107) mmol/L Carbon Dioxide 35 H (21-32) mmol/L POC Total CO2 (24-31) mmol/L Anion Gap 5.0 (3-11) POC Anion Gap (16-25) mmol/L POC BUN (7-18) mg/dl BUN 23 H (7-18) mg/dl Creatinine 1.10 (0.6-1.4) mg/dl POC Creatinine (0.6-1.3) mg/dl Est Cr Clr Drug Dosing Not Reportable Est GFR ( Amer) 73.1 ml/min Est GFR (Non-Af Amer) 63.1 ml/min BUN/Creatinine Ratio 21.1 H (10-20) Glucose 183 H (70-99) mg/dl POC Glucose (other) (70-99) mg/dl Calcium 9.6 (8.5-10.1) mg/dl POC Ioniz Calcium Yarely (1.12-1.32) mmol/l Total Bilirubin 1.0 (0.2-1) mg/dl AST 14 L (15-37) U/L ALT 13 (12-78) U/L Alkaline Phosphatase 88 (45-117) U/L Troponin I 0.234 H* (0-0.045) ng/ml NT-Pro-B Natriuret Pep 2660 H (0-1800) pg/ml Total Protein 7.8 (6.4-8.2) gm/dl Albumin 3.3 L (3.4-5.0) gm/dl Globulin 4.5 H (2.5-4.0) gm/dl Albumin/Globulin Ratio 0.7 L (0.9-2) Urine Color Urine Appearance (Clear) Urine pH (4.5-7.5) Ur Specific [place] (1.000-1.030) Urine Protein (Negative) Urine Glucose (UA) (Negative) Urine Ketones (Negative) Urine Blood (Negative) Urine Nitrite (Negative) Urine Bilirubin (Negative) Urine Urobilinogen (Negative) Ur Leukocyte Esterase (Negative) Urine WBC (Auto) (0-5) /hpf Urine RBC (Auto) (0-4) /hpf U Hyaline Cast (Auto) (0-5) /lpf U Epithel Cells (Auto) (0-5) /lpf Urine Bacteria (Auto) (Negative) COVID-19 Eval Order SARS-CoV-2 (PCR) (Negative) 12/05/20 12/05/20 12/05/20 Range/Units 21:08 21:14 21:14 WBC (4.8-10.8) K/uL RBC (4.7-6.1) M/uL Hgb (14.0-18.0) g/dL POC Hgb 15.0 (14.0-18.0) g/dl Hct (42-52) % POC Hct 44 (42-52) % MCV (80-100) fL MCH (25-34) pg MCHC (32-36) g/dL RDW Std Deviation (36.4-46.3) fL RDW Coeff of Paulo (11.5-14.5) % Plt Count (130-400) K/uL MPV (7.4-10.4) fL Immature Gran % (Auto) % Neut % (Auto) % Lymph % (Auto) % [place] % (Auto) % Eos % (Auto) % Baso % (Auto) % Neut # (Auto) (1.4-6.5) K/uL Lymph # (Auto) (1.2-3.4) K/uL [place] # (Auto) (0.11-0.59) K/uL Eos # (Auto) (0-0.5) K/uL Baso # (Auto) (0-0.2) K/uL Immature Gran # (Auto) (0.00-0.02) K/uL PT (9.0-12.0) Seconds INR (0.9-1.1) APTT (21.0-31.0) Seconds PTT Ratio ABG pH (7.35-7.45) ABG pCO2 (35-46) mmHg ABG pO2 (80-95) mmHg ABG HCO3 (19-24) mmol/L ABG O2 Saturation (90-95) % ABG Base Excess (-9-1.8) mEq/L Jeffrey Test (Pos) Barometric Pressure mm/Hg Oxygen Given POC Sodium 141 (135-144) mmol/L Sodium (136-145) mmol/L POC Potassium 3.6 (3.3-5.0) mmol/L Potassium (3.5-5.1) mmol/L POC Chloride 94 L (101-112) mmol/L Chloride (98-107) mmol/L Carbon Dioxide (21-32) mmol/L POC Total CO2 34 H (24-31) mmol/L Anion Gap (3-11) POC Anion Gap 18.0 (16-25) mmol/L POC BUN 25 H (7-18) mg/dl BUN (7-18) mg/dl Creatinine (0.6-1.4) mg/dl POC Creatinine 1.1 (0.6-1.3) mg/dl Est Cr Clr Drug Dosing Est GFR ( Amer) ml/min Est GFR (Non-Af Amer) ml/min BUN/Creatinine Ratio (10-20) Glucose (70-99) mg/dl POC Glucose (other) 186 H (70-99) mg/dl Calcium (8.5-10.1) mg/dl POC Ioniz Calcium Yarely 1.14 (1.12-1.32) mmol/l Total Bilirubin (0.2-1) mg/dl AST (15-37) U/L ALT (12-78) U/L Alkaline Phosphatase (45-117) U/L Troponin I (0-0.045) ng/ml NT-Pro-B Natriuret Pep (0-1800) pg/ml Total Protein (6.4-8.2) gm/dl Albumin (3.4-5.0) gm/dl Globulin (2.5-4.0) gm/dl Albumin/Globulin Ratio (0.9-2) Urine Color Urine Appearance (Clear) Urine pH (4.5-7.5) Ur Specific [place] (1.000-1.030) Urine Protein (Negative) Urine Glucose (UA) (Negative) Urine Ketones (Negative) Urine Blood (Negative) Urine Nitrite (Negative) Urine Bilirubin (Negative) Urine Urobilinogen (Negative) Ur Leukocyte Esterase (Negative) Urine WBC (Auto) (0-5) /hpf Urine RBC (Auto) (0-4) /hpf U Hyaline Cast (Auto) (0-5) /lpf U Epithel Cells (Auto) (0-5) /lpf Urine Bacteria (Auto) (Negative) COVID-19 Eval Order Covid19 at [facility] SARS-CoV-2 (PCR) NEGATIVE (Negative) 12/05/20 12/05/20 Range/Units 21:43 21:46 WBC (4.8-10.8) K/uL RBC (4.7-6.1) M/uL Hgb (14.0-18.0) g/dL POC Hgb (14.0-18.0) g/dl Hct (42-52) % POC Hct (42-52) % MCV (80-100) fL MCH (25-34) pg MCHC (32-36) g/dL RDW Std Deviation (36.4-46.3) fL RDW Coeff of Paulo (11.5-14.5) % Plt Count (130-400) K/uL MPV (7.4-10.4) fL Immature Gran % (Auto) % Neut % (Auto) % Lymph % (Auto) % [place] % (Auto) % Eos % (Auto) % Baso % (Auto) % Neut # (Auto) (1.4-6.5) K/uL Lymph # (Auto) (1.2-3.4) K/uL [place] # (Auto) (0.11-0.59) K/uL Eos # (Auto) (0-0.5) K/uL Baso # (Auto) (0-0.2) K/uL Immature Gran # (Auto) (0.00-0.02) K/uL PT (9.0-12.0) Seconds INR (0.9-1.1) APTT (21.0-31.0) Seconds PTT Ratio ABG pH 7.46 H (7.35-7.45) ABG pCO2 48 H (35-46) mmHg ABG pO2 94 (80-95) mmHg ABG HCO3 34 H (19-24) mmol/L ABG O2 Saturation 97.2 H (90-95) % ABG Base Excess 8.5 H (-9-1.8) mEq/L Jeffrey Test Pos (Pos) Barometric Pressure 736.0 mm/Hg Oxygen Given 50% POC Sodium (135-144) mmol/L Sodium (136-145) mmol/L POC Potassium (3.3-5.0) mmol/L Potassium (3.5-5.1) mmol/L POC Chloride (101-112) mmol/L Chloride (98-107) mmol/L Carbon Dioxide (21-32) mmol/L POC Total CO2 (24-31) mmol/L Anion Gap (3-11) POC Anion Gap (16-25) mmol/L POC BUN (7-18) mg/dl BUN (7-18) mg/dl Creatinine (0.6-1.4) mg/dl POC Creatinine (0.6-1.3) mg/dl Est Cr Clr Drug Dosing Est GFR ( Amer) ml/min Est GFR (Non-Af Amer) ml/min BUN/Creatinine Ratio (10-20) Glucose (70-99) mg/dl POC Glucose (other) (70-99) mg/dl Calcium (8.5-10.1) mg/dl POC Ioniz Calcium Yarely (1.12-1.32) mmol/l Total Bilirubin (0.2-1) mg/dl AST (15-37) U/L ALT (12-78) U/L Alkaline Phosphatase (45-117) U/L Troponin I (0-0.045) ng/ml NT-Pro-B Natriuret Pep (0-1800) pg/ml Total Protein (6.4-8.2) gm/dl Albumin (3.4-5.0) gm/dl Globulin (2.5-4.0) gm/dl Albumin/Globulin Ratio (0.9-2) Urine Color Yellow Urine Appearance Clear (Clear) Urine pH 5.5 (4.5-7.5) Ur Specific [place] 1.019 (1.000-1.030) Urine Protein 3+ H (Negative) Urine Glucose (UA) 1+ H (Negative) Urine Ketones Negative (Negative) Urine Blood Trace H (Negative) Urine Nitrite Negative (Negative) Urine Bilirubin Negative (Negative) Urine Urobilinogen Negative (Negative) Ur Leukocyte Esterase Negative (Negative) Urine WBC (Auto) 1-5 (0-5) /hpf Urine RBC (Auto) 0-4 (0-4) /hpf U Hyaline Cast (Auto) 0 (0-5) /lpf U Epithel Cells (Auto) 10-20 H (0-5) /lpf Urine Bacteria (Auto) Negative (Negative) COVID-19 Eval Order SARS-CoV-2 (PCR) (Negative) Imaging Data Attestation: I personally reviewed and interpreted this imaging study as follows: My Impression: Chest x-ray per my interpretation shows bilateral pulmonary edema with possible underlying pneumonia. ECG Data Attestation: I personally reviewed and interpreted this ECG as follows: Indication: + chest pain and + SOB/dyspnea Rate (beats per minute): 123 Rhythm: + atrial fibrillation ECG Intervals/blocks: + Left bundle branch block ECG [place]: + Left axis deviation ECG Findings: + PVCs Comparison ECG Date: from (September 20, 2019) Change: no significant change MDM Narrative I did evaluate the patient as noted above. I was called emergently into the room to see this patient who is hypoxemic. He states he has been short of breath since yesterday and has had intermittent chest pain although does not know the current time course for this. He is not currently having any chest pain. He does have a history of CHF. He also complains of a cough with occa sional bloody sputum. I was concerned about the possibility of PE. Initially told me that he is not on any blood thinners but review his medications demonstrates that he is on Xarelto. He did recently fill the prescription and so it seems unlikely that he would have a pulmonary embolism at this time. He is also unable to lie down for a CT scan in any case. IV access was established. I did place an order for continuous cardiac monitoring. The monitor showed atrial fibrillation with a heart rate of 122. I did order and personally review the patient's 12-lead EKG as described above. He has an old left bundle branch block with A. fib and RVR. I did order and personally reviewed the images of the patient's chest x-ray as described above. He has bilateral pulmonary edema. I cannot rule out an underlying infectious infiltrate. I did order and review the patient's blood work as noted in the electronic medical record. His white count is over 22,000. He is not anemic. Platelet count is 328. Coags are unremarkable. Electrolytes demonstrate a CO2 of 35. Glucose is 183. His troponin is elevated at 0.2. BNP is over 2600. COVID-19 testing is negative. Initially the patient was placed on CPAP. He was unable to tolerate it and so he was placed back on an oxygen mask. He was able to maintain O2 saturations at approximately 90 to 92% on the mask. He was given Lasix 40 mg IV. I also started him on a nitroglycerin drip. He will be admitted to the hospital. I did discuss case with the case manager specialist and the hospitalist. The hospitalist did wish to discontinue the nitroglycerin drip. He was therefore placed on nitroglycerin paste 2 inches to the anterior chest wall. He was again placed on CPAP and is now able to tolerate it. Impression & Plan Acute respiratory failure with hypoxemia, Pneumonia, Elevated troponin, Acute exacerbation of CHF (congestive heart failure), Pulmonary edema Discharge Plan Visit Data Chief Complaint: Shortness of Breath/Dyspnea Stated Complaint: TROUBLE BREATHING ED Provider: Eddie Simms Discharge Problem: Acute respiratory failure with hypoxemia, Pneumonia, Elevated troponin, Acute exacerbation of CHF (congestive heart failure), Pulmonary edema Patient Disposition: Being Evaluated by Hospitalist Forms Stand Alone Forms: My [facility] Prescriptions Prescriptions: No Action (DME) FreeStyle Lite Strips strip See Dose Instructions .ROUTE .MEDSUPPLY Qty: 350 RF: 3 pantoprazole 40 mg tablet,delayed release (DR/EC) 40 mg PO BID Qty: 180 RF: 3 (DME) insulin syringe-needle U-100 [BD Insulin Syringe Ultra-Fine] 1 mL 31 gauge x 5/16 syringe See Rx Instructions .ROUTE .MEDSUPPLY Qty: 500 RF: 3 cholecalciferol (vitamin D3) 50 mcg (2,000 unit) capsule 4,000 unit PO QAM RF: 0 gabapentin 300 mg capsule 600 mg PO BID Qty: 56 RF: 0 lisinopril 5 mg tablet 5 mg PO QAM Qty: 30 RF: 2 Lantus U-100 Insulin 100 unit/mL solution 75 unit subcut BID RF: 0 (DME) Dexcom G6 Sensor Device See Rx Instructions .ROUTE .MEDSUPPLY Qty: 3 RF: 0 (DME) Dexcom G6 Transmitter Device See Rx Instructions .ROUTE .MEDSUPPLY Qty: 1 RF: 0 (DME) Dexcom G6 Actuarial Consultant Misc See Rx Instructions .ROUTE .MEDSUPPLY Qty: 1 RF: 0 spironolactone 25 mg tablet 25 mg PO DAILY RF: 0 Hold Instructions: Hyperkalemia nitroglycerin [Nitrostat] 0.4 mg tablet, sublingual 0.4 mg Sublingual Q5M PRN (Reason: Chest Pain) RF: 0 aspirin 81 mg Tablet,Delayed Release (Dr/Ec) 81 mg PO QAM RF: 0 furosemide 40 mg tablet 40 mg PO BID RF: 0 atorvastatin 80 mg tablet 80 mg PO HS RF: 0 metoprolol succinate 100 mg tablet extended release 24 hr 100 mg PO QAM RF: 0 montelukast 10 mg tablet 10 mg PO HS RF: 0 duloxetine 60 mg capsule,delayed release(DR/EC) 60 mg PO QAM RF: 0 Xarelto 15 mg tablet 15 mg PO QPM RF: 0 insulin aspart U-100 [Novolog U-100 Insulin aspart] 100 unit/mL solution 65 unit SQ QID RF: 0 Referrals Referrals: Ron Aguilera MD [Primary Care Provider] -
[2020-12-05] MEDS ORDERED: STAT IV Infusion **Titration per Protocol STA (21:19)
[2020-12-05 21:22] LABS: iSTAT Creatinine 1.1 mg/dl (0.6-1.3); iSTAT Ionized Calcium 1.14 mmol/l (1.12-1.32); iSTAT Potassium 3.6 mmol/L (3.3-5.0)
[2020-12-05 21:27] LABS: Basophils # (auto) 0.02 K/uL (0-0.2); Basophils % (auto) 0.1 %; Eosinophils # (auto) 0.08 K/uL (0-0.5); Eosinophils % (auto) 0.4 %; Hematocrit (blood only) 43.1 % (42-52); Hemoglobin 14.5 g/dL (14.0-18.0); Immature Granulocytes # (auto) 0.09 K/uL (0.00-0.02); Immature Granulocytes % (auto) 0.4 %; Lymphocytes # (auto) 1.56 K/uL (1.2-3.4); Lymphocytes % (auto) 7.1 %; Mean Corpuscular Hemoglobin 32.3 pg (25-34); Mean Corpuscular Hgb Conc 33.6 g/dL (32-36); Mean Platelet Volume 10.8 fL (7.4-10.4); Monocytes % (auto) 8.6 %; Neutrophils # (auto) 18.42 K/uL (1.4-6.5); Neutrophils % (auto) 83.4 %; Platelet Count 328 K/uL (130-400); RDW Coefficient of Variation 14.3 % (11.5-14.5); RDW Standard Deviation 50.1 fL (36.4-46.3); Red Blood Count 4.49 M/uL (4.7-6.1); White Blood Count 22.07 K/uL (4.8-10.8)
[2020-12-05 21:28] LABS: INR 1.1 (0.9-1.1); Partial Thromboplastin Ratio 1.1; Partial Thromboplastin Time 28.8 Seconds (21.0-31.0); Prothrombin Time 10.7 Seconds (9.0-12.0)
[2020-12-05] MEDS ORDERED: NITROGLYCERIN/D5W 100MCG/ML 250 ML IV SCH (21:30)
[2020-12-05] MEDS ORDERED: PIPERACILL/TAZOBAC CONSULT ACTIVE PRN (21:31)
[2020-12-05] MEDS ORDERED: PIPERACILLIN/TAZOBACTAM 4.5 GM/120 ML BAG IV ONE (21:31)
[2020-12-05 21:37] LABS: Alanine Aminotransferase 13 U/L (12-78); Albumin Level 3.3 gm/dl (3.4-5.0); Aspartate Aminotransferase 14 U/L (15-37); BUN Creatinine Ratio 21.1 (10-20); Blood Urea Nitrogen 23 mg/dl (7-18); Calcium 9.6 mg/dl (8.5-10.1); Carbon Dioxide 35 mmol/L (21-32); Chloride 98 mmol/L (98-107); Est GFR (African American) 73.1 ml/min; Est GFR (Non-African American) 63.1 ml/min; Glucose 183 mg/dl (70-99); Potassium 3.5 mmol/L (3.5-5.1); Sodium 138 mmol/L (136-145)
[2020-12-05 21:45] LABS: Albumin Globulin Ratio 0.7 (0.9-2); Alkaline Phosphatase 88 U/L (45-117); Globulin 4.5 gm/dl (2.5-4.0); NT Pro B Type Natriuretic Pept 2660 pg/ml (0-1800); Total Protein 7.8 gm/dl (6.4-8.2); Troponin I 0.234 ng/ml (0-0.045)
[2020-12-05] MEDS ORDERED: NITROGLYCERIN 2% OINTMENT 30GM TUBE EXT STA (21:51)
[2020-12-05 21:56] LABS: Base Excess ABG 8.5 mEq/L (-9-1.8); HCO3 ABG 34 mmol/L (19-24); Oxygen Saturation ABG 97.2 % (90-95); PCO2 ABG 48 mmHg (35-46); PO2 ABG 94 mmHg (80-95); pH ABG 7.46 (7.35-7.45)
[2020-12-05 21:58] LABS: Allen Test Pos (Pos)
[2020-12-05 22:05] LABS: Appearance Urine Clear (Clear); Bacteria Urine Automated Negative (Negative); Bilirubin Urine Negative (Negative); Blood Urine Trace (Negative); Cast Urine Automated 0 /lpf (0-5); Color Urine Yellow; Glucose Urine UA 1+ (Negative); Ketones Urine Negative (Negative); Leukocyte Esterase Urine Negative (Negative); Nitrite Urine Negative (Negative); Protein Urine 3+ (Negative); RBC Urine Automated 0-4 /hpf (0-4); Specific Gravity Urine 1.019 (1.000-1.030); Urobilinogen Urine Negative (Negative); pH Urine 5.5 (4.5-7.5)
--- NOTE | 2020-12-05 22:46 | History & Physical Report ---
Date of Service December 05, 2020 Assessment & Plan (1) Acute respiratory failure with hypoxemia: Patient is an complex medical 79 year old male with PMHx HFrEF, DM2, Anxiety, Atrial Fibrillation, V Tach s/p ICD placement, CKD III, CAD, GERD, Hx TBI, HLD, HTN, PAD, Sleep apnea not on CPAP, Hyperglobulinemia, that presents for what he notes is a 2 day history of worsening shortness of breath, though upon discussion with his daughter who is also present in the room has actually had 2 week history of shortness of breath. Acute respiratory failure with hypoxemia secondary to Acute on Chronic HFrEF -With suspected pneumonia in ED, given dose of Zosyn - will hold on further doses as believe this is a CHF exacerbation over pneumonia at this time -In ED also given Lasix 40mg IV and short course of IV nitroglycerin before transitioning to nitropaste - suspect patient's tachycardia due to not taking his metoprolol, will resume now. -Most recent echo 09/22/2019 with EF 40%, repeat in AM -BMP elevated at 2660 with crackles and LE edema on exam -Will hold home diuretics at this time and continue with IV Lasix 40mg BID -Lua catheter placed for appropriate I/O's -Daily weights -Fluid restrict 2000ml and low salt diet -Repeat CXR in AM -Continue CPAP as needed, though patient should be on CPAP at night for sleep apnea (notes he cannot tolerate it usually) -Cardiology consulted Elevated Troponin -EKG with chronic LBBB and atrial fibrillation -Troponin elevated 0.234, though without chest pain lower suspicion for ACS -Suspect due to CHF exacerbation vs chronic elevation -Will repeat trop x1 at q6h -Repeat EKG in AM -Continue ASA Hemoptysis/Hematemesis -Noted via history by patient, but have not seen during visit to this point -Hemoccult stools -Continue to monitor for blood PO -At this time Hgb stable at 14.5 with limited history, will continue ASA and Xarelto CAD s/p stent and CABG -Continue ASA -Continue high dose atorvastatin -Resume and continue metoprolol AFIB and hx V Tach -S/P ICD placement -Continue Xarelto -Continue metoprolol Anxiety -Continue Cymbalta GERD -Continue Protonix BID DM2 -Glycemic consult Dispo: Med/Surg Telemetry for diuresis, monitoring FEN: Low Na diet, DM2 diet, HH diet, Fluid restrict 2000ml DVT: Xarelto Code: DNR/DNI (2) Acute exacerbation of CHF (congestive heart failure): History of Present Illness Chief Complaint: SOB Primary Care Provider: Humza Aguilera MD Patient is an complex medical 79 year old male with PMHx HFrEF, DM2, Anxiety, Atrial Fibrillation, V Tach s/p ICD placement, CKD III, CAD, GERD, Hx TBI, HLD, HTN, PAD, Sleep apnea not on CPAP, Hyperglobulinemia, that presents for what he notes is a 2 day history of worsening shortness of breath, though upon discussion with his daughter who is also present in the room has actually had 2 week history of shortness of breath. Patient appears to be somewhat of a poor historian in addition to wanting to go home rather than be admitted. On arrival patient was found to be hypoxic with saturations in the mid 70's and he was immediately placed on Oxymask 10L which has now been transitioned to CPAP. He notes that he chronically uses 2L NC at home for oxygen. He notes that he takes his medications as prescribed, though notes he has not been taking his metoprolol. Upon review of his most recent [facility] visit on 12/02/20 he was to continue his metoprolol for rate control. He does deny any recent fever, chills, chest pain, chest pressure. He notes that he occasionally will cough up "blood," but is unsure if it is coming from his lungs or from his stomach. He has not noted any dark or tarry stools, but has chronic yellow- colored diarrhea. He states that currently while on CPAP he is comfortable in regards to his breathing. PMHx: HFrEF, DM2, Anxiety, Atrial Fibrillation, V Tach s/p ICD placement, CKD III, CAD, GERD, Hx TBI, HLD, HTN, PAD, Sleep apnea not on CPAP, Hyperglobulinemia Surg Hx: Cataract surgery, L knee replacement, s/p ICD placement, CABG x3, Atrial Flutter ablation, RCA PCI x5 stents to prox and mid RCA Soc Hx: Quit smoking 1989, No alcohol or illicit drug use. Allergies Allergy/AdvReac Type Severity Reaction Status Date / Time No Known Drug Allergies Allergy Unknown NKDA Verified 12/05/20 21:49 Home Medications Medication Instructions Recorded Confirmed Type aspirin 81 mg PO QAM 06/04/18 12/05/20 History nitroglycerin 0.4 mg sublingual 0.4 mg SUBLINGUAL Q5M PRN tab 02/25/19 12/05/20 History tablet blood sugar diagnostic #350 ea 07/05/19 11/17/20 Rx pantoprazole 40 mg tablet,delayed 40 mg PO BID #180 tab 02/21/20 12/05/20 Rx release insulin syringe-needle U-100 1 mL #500 ea 03/09/20 11/17/20 Rx 31 gauge x 11/22" cholecalciferol (vitamin D3) 50 4,000 unit PO QAM cap 04/22/20 12/05/20 History mcg (2,000 unit) capsule gabapentin 300 mg capsule 600 mg PO BID #56 cap 06/04/20 12/05/20 Rx Xarelto 15 mg PO QPM 10/21/20 12/05/20 History atorvastatin 80 mg PO HS 10/21/20 12/05/20 History duloxetine 60 mg PO QAM 10/21/20 12/05/20 History furosemide 40 mg PO BID 10/21/20 12/05/20 History metoprolol succinate 100 mg PO QAM 10/21/20 12/05/20 History montelukast 10 mg PO HS 10/21/20 12/05/20 History blood-glucose meter,continuous #1 ea 11/10/20 11/17/20 History blood-glucose sensor #3 ea 11/10/20 11/17/20 History blood-glucose transmitter #1 ea 11/10/20 11/17/20 History insulin glargine 100 unit/mL 75 unit SUBCUT BID ml 11/10/20 12/05/20 History subcutaneous solution spironolactone 25 mg tablet 25 mg PO DAILY tab 11/10/20 12/05/20 History lisinopril 5 mg tablet 5 mg PO QAM #30 tab 11/17/20 12/05/20 Rx insulin aspart U-100 [Novolog 65 unit SQ QID 12/05/20 12/05/20 History U-100 Insulin aspart] Past Med/Surg History Medical History Adult situational stress disorder Anxiety Atrial fibrillation no cardioversion. C4 cervical fracture no surgical intervention. Full ROM. CAD (coronary artery disease) Carotid artery stenosis, asymptomatic Chronic kidney disease, stage III (moderate) Depression Dysphagia occasionally (per ) Gastroparesis GERD (gastroesophageal reflux disease) Hearing deficit [place]LLA 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 BRAIN BLEED + SKULL/FACIAL FRACTURES. RESOLVED W/O SURGICAL INTERVENTION. [facility] --> [facility]. Hyperlipidemia Hypertension ICD (implantable cardioverter-defibrillator) in place placed ~2017. [address] Doran, last saw 10/20/20 Insomnia Kidney disease FOLLOWS W/ [place] NEPHRO Lumbar disc disease Osteoarthritis PAD (peripheral artery disease) Paroxysmal ventricular tachycardia Peripheral neuropathy Pneumonia hx. Poor historian history obtained from , Jacklyn. Sinus bradycardia Situational depression Sleep apnea REFUSES CPAP/OXYGEN Spinal stenosis Subdural hematoma (~2017) history r/t fall Venous insufficiency Surgical History History of anesthesia reaction COMBATIVE History of back surgery History of cardiac cath MULTIPLE CATHS W/ STENTS - LAST 2004. History of cataract surgery History of cholecystectomy History of colonoscopy History of heart artery stent Total of 5 stents. History of knee replacement LEFT Hx of CABG 2004. # VESSELS? FOLLOWS W/ SYZMANSKI S/P epidural steroid injection S/P ICD (internal cardiac defibrillator) procedure Family History Daughter Family history of reaction to anesthesia PONV Sister Cancer Other No significant family history Denies family history of Ovarian cancer Prostate cancer Coronary heart disease Breast cancer Colorectal cancer Social History Smoking Status: Former smoker Second Hand Exposure: No; Hx Alcohol Use: No Hx Substance Use: No Preferred Language: Indian Communication Ability: Effective Visual Impairment: Limited Hearing Ability: Hard of Hearing Nursing Admin Required: No Beliefs That Will Affect Care: None marital status: Current Living Situation: Spouse current occupational status: retired Feels Safe at Home: Yes Safety Concerns: Feels Safe At This Time Childhood Exposure to Second-Hand Smoke: Yes caffeine: No during the past year weight has: remained stable Dental Care, Regularly: Yes Physical Activity Frequency: Does not Exercise Seatbelt Use: always Sunscreen Use: No Assistive Devices: Oxygen - at Night and Walker Review of Systems Review of Systems: All systems reviewed & are unremarkable except as noted in Subjective Physical Exam Constitutional: + disheveled and cooperative Eyes: PERRL, conjunctivae normal, anicteric sclerae ENMT: external ear and nose normal, oropharynx normal CPAP Mask in place on face Respiratory: able to speak in complete sentences; no respiratory distress and no cough Auscultation: + diminished lung sounds and + crackles (b/l ) CPAP mask in place Cardiovascular: Rate/Rhythm: + irregularly irregular Extremities: + edema (2+ worse on R ); no calf tenderness Chest (Breasts): Chest: + pacemaker Gastrointestinal (Abdomen): Inspection/Auscultation: + abdomen distended and normal bowel sounds Percussion/Palpation: abdomen soft; abdomen nontender, no guarding and abdomen not rigid DEXCOM on lower L abdomen Musculoskeletal: no cyanosis or clubbing, extremities motor strength 5/5 Skin: no rashes, warm and dry Neurologic: PERRL, EOMI, accommodation nl, no face palsy, no dysarthria Psychiatric: Orientation: alert and oriented x 3 Mood: + irritable mood Results & Data Results & Data ([facility]) Vital Signs (Past 12 Hours) Vital Signs Temp Pulse Resp BP Pulse Ox 12/05/20 21:45 90 12/05/20 21:35 120 H 32 H 96 12/05/20 21:00 124 H 35 H 92 12/05/20 20:41 36.6 C 97 H 20 181/122 H 75 L Supervising Physician Co-Signing Physician Notes Attending addendum: I have physically seen this patient, have supervised the medical residents activities, and agree with the H&P unless as otherwise noted. Assessment and Plan: Acute respiratory failure with hypoxemia/acute on chronic HFrEF/CAD/status post stent/status post CABG/status post ICD for history of V. tach- The patient will be admitted to telemetry for serial cardiac enzymes, serial EKG's, cardiac rhythm monitoring and a 2-D echocardiogram with Dopplers. Troponin 0.234 upon admission, BNP 2660 Most recent EF 40% on 09/22/2019 Admit on furosemide 40 mg IV twice daily, with first dose given in ED Continue aspirin, Xarelto and metoprolol Lua catheter as needed Follow serial chest x-rays and labs Consult cardiology Hemoptysis- Patient reports coughing up small volumes of blood, although not witnessed in the ED Questionable historian, does not sound significant enough at this time to withhold aspirin and Xarelto due to concerns regarding non-STEMI Remaining orders and notations as noted Resident Activity Tracking Resident Involvement: Resident Care Provided Care Provided: Adult Hospital Medicine (1) Acute exacerbation of CHF (congestive heart failure) Heart failure type: combined systolic and diastolic Qualified Code(s): I50.43 - Acute on chronic combined systolic (congestive) and diastolic (congestive) heart failure
[2020-12-06] MEDS ORDERED: NITROGLYCERIN SL 0.4 MG/TAB TAB SL PRN (00:36)
[2020-12-06] MEDS ORDERED: DEXTROSE 50% 50 ML SYRINGE IV PRN (00:36)
[2020-12-06] MEDS ORDERED: GLUCAGON FOR INJ 1 MG VIAL SQ PRN (00:36)
[2020-12-06] MEDS ORDERED: GLUCOSE 40% GEL 15 GM TUBE PO PRN (00:36)
[2020-12-06] MEDS ORDERED: ACETAMINOPHEN 325 MG TAB PO PRN (00:36)
[2020-12-06] MEDS ORDERED: GLUCOSE 10 TABS/TUBE PO PRN (00:36)
[2020-12-06] MEDS ORDERED: ONDANSETRON INJ 2 MG/ML 2 ML VIAL IV PRN (00:36)
[2020-12-06] MEDS ORDERED: CARBOHYDRATES FOR HYPOGLYCEMIA PO PRN (00:36)
[2020-12-06] MEDS ORDERED: PHARMACY GLYCEMIC MGMT CONSULT PRN (01:03)
[2020-12-06] MEDS ORDERED: INSULIN GLARGINE 100 UNIT/ML VIAL SC ONE (01:15)
[2020-12-06] MEDS ORDERED: INSULIN ASPART 100 UNITS/ML 3 ML PEN SC SCH ×2 (01:15→05:00)
[2020-12-06] MEDS: RIVAROXABAN 15 MG TAB PO SCH ×2 (02:40→20:26)
[2020-12-06 03:58] LABS: Basophils # (auto) 0.01 K/uL (0-0.2); Basophils % (auto) 0.1 %; Eosinophils # (auto) 0.01 K/uL (0-0.5); Eosinophils % (auto) 0.1 %; Hematocrit (blood only) 39.6 % (42-52); Hemoglobin 13.3 g/dL (14.0-18.0); Immature Granulocytes # (auto) 0.05 K/uL (0.00-0.02); Immature Granulocytes % (auto) 0.3 %; Lymphocytes # (auto) 1.37 K/uL (1.2-3.4); Lymphocytes % (auto) 8.1 %; Mean Corpuscular Hemoglobin 32.1 pg (25-34); Mean Corpuscular Hgb Conc 33.6 g/dL (32-36); Mean Corpuscular Volume 95.7 fL (80-100); Mean Platelet Volume 10.8 fL (7.4-10.4); Monocytes # (auto) 1.03 K/uL (0.11-0.59); Monocytes % (auto) 6.1 %; Neutrophils % (auto) 85.3 %; Platelet Count 262 K/uL (130-400); RDW Coefficient of Variation 14.3 % (11.5-14.5); RDW Standard Deviation 50.4 fL (36.4-46.3); Red Blood Count 4.14 M/uL (4.7-6.1); White Blood Count 16.87 K/uL (4.8-10.8)
[2020-12-06 04:18] LABS: BUN Creatinine Ratio 19.1 (10-20); Calcium 8.6 mg/dl (8.5-10.1); Creatinine Clr Calc Pharmacy 64.3 ml/min; Est GFR (Non-African American) 60.4 ml/min; Magnesium 1.7 mg/dl (1.8-2.4); Potassium 3.4 mmol/L (3.5-5.1)
[2020-12-06] MEDS ORDERED: POTASSIUM CHLORIDE CRTAB 20 MEQ TABCR PO STA (04:24)
[2020-12-06] MEDS: MAGNESIUM SULFATE 50% 2 GM in DEXTROSE 5% 100 ML IV SCH ×2 (05:19→07:51)
--- NOTE | 2020-12-06 08:07 | XRay Report ---
XR chest 1V portable CLINICAL HISTORY: Congestive heart failure. COMPARISON STUDY: Chest radiograph December 05, 2020. FINDINGS: A left subclavian pacer/AICD and median sternotomy wires are noted. There is no pneumothora x. A right pleural effusion has increased in size. Interstitial thickening has increased. Bilateral a irspace opacities, greater within the right lung, have increased. Cardiomegaly is unchanged. IMPRESSION: 1. Progression of pulmonary edema and a right pleural effusion. 2. Bilateral airspace opacities, greater within the right lung with evidence of right lower lung volu me loss. This may reflect alveolar edema or superimposed pneumonia. Radiographic follow-up is recomme nded. ACT 112: Negative or not required by law. Electronically signed by: Shane Goins M.D. 12/06/2020 8:06 AM
[2020-12-06] MEDS: PANTOprazole 40 MG TAB PO SCH ×2 (08:13→20:25)
[2020-12-06] MEDS: DULoxetine HCL 60 MG CAP PO SCH (08:13)
[2020-12-06] MEDS: GABAPENTIN 300 MG CAP PO SCH ×2 (08:13→20:24)
[2020-12-06] MEDS: guaiFENesin 600 MG TABCR PO SCH ×2 (08:14→20:25)
[2020-12-06] MEDS: CHOLECALCIFEROL 1,000 UNITS 25 MCG TAB PO SCH (08:14)
[2020-12-06] MEDS: ASPIRIN 81 MG ECTAB PO SCH (08:14)
[2020-12-06] MEDS: lisinopril 5 MG TAB PO SCH (08:14)
[2020-12-06] MEDS: METOPROLOL SUCC 50MG EXT REL TAB PO SCH (08:14)
[2020-12-06] MEDS: INSULIN ASPART 100 UNITS/ML 3 ML PEN SC SCH ×4 (08:16→20:26)
[2020-12-06] MEDS ORDERED: FUROSEMIDE 40 MG/4 ML VIAL IV SCH (09:00)
[2020-12-06] MEDS ORDERED: INSULIN GLARGINE 100 UNIT/ML VIAL SC SCH ×3 (09:00→21:00)
[2020-12-06] MEDS ORDERED: FUROSEMIDE 40 MG in SYRINGE 0 ML IV SCH (09:00)
--- NOTE | 2020-12-06 09:30 | XRay Report ---
XR chest 1V portable CLINICAL HISTORY: Dyspnea COMPARISON STUDY: Chest radiograph and chest CT September 20, 2019. FINDINGS: A left subclavian pacer/AICD is in place. There are median sternotomy wires. Cardiomegaly i s unchanged. No pneumothorax is present. Interstitial thickening is noted with bilateral opacities, g reatest within the right lower lobe. There is evidence for right lower lobe volume loss. Small to mod erate right pleural effusion is suspected. IMPRESSION: 1. Interstitial thickening consistent with pulmonary edema. 2. Bilateral airspace opacities, greatest within the right lower lobe. This may reflect superimposed pneumonia or alveolar edema. Radiographic follow up is recommended. 3. Suspected small to moderate right pleural effusion. ACT 112: Negative or not required by law. Electronically signed by: Shane Goins M.D. 12/06/2020 9:29 AM
[2020-12-06] MEDS ORDERED: PHENAZOPYRIDINE HCL 100 MG TAB PO STA (09:33)
[2020-12-06] MEDS ORDERED: OXYBUTYNIN CHLORIDE 5 MG TAB PO STA (09:33)
--- NOTE | 2020-12-06 10:40 | Pharmacy Report ---
Pharmacy Glycemic Short Note 2 - Date of Service December 06, 2020 - Glycemic Short BSG Results (Last 24 hours): 12/05/20 12/05/20 12/06/20 21:02 21:08 00:10 Glucose 183 H POC Glucose 216 H POC Glucose (other) 186 H 12/06/20 12/06/20 12/06/20 03:22 05:24 07:51 Glucose 231 H POC Glucose 225 H 159 H POC Glucose (other) OUTPATIENT ANTIDIABETIC REGIMEN: * Lantus 75 units SC BID * Insulin aspart 65 units SC QID + sliding scale * HbA1c pending ASSESSMENT: * BM is an 79 year old male admitted last evening with two day history of worsening shortness of breath * Per previous glycemic data, patient requires significantly less insulin than outpatient doses would suggest * Patient received 75 units of Lantus prior to admission and an additional 50 units last evening * 75 units given this morning - will utilize Lantus scale this evening PLAN FOR INPATIENT GLYCEMIC CONTROL: * Hold outpatient oral diabetes medications * Basal insulin * Lantus 75 units SC this morning * Lantus scale 45-75 units SC BID starting this evening * Bolus insulin * NovoLog per scale ACHS or Q6hrs while NPO * Goal Range: Low 110 mg/dL - High 140 mg/dL * Correction Factor: 15 mg/dL/unit * Nutritional / Prandial insulin per carb ratio of 1 unit per 5 grams CHO consumed PLAN FOR DISCHARGE: * tbd
--- NOTE | 2020-12-06 10:40 | Electrocardiogram Report ---
Test Reason : Blood Pressure : / mmHG Vent. Rate : 123 BPM Atrial Rate : 159 BPM P-R Int : 000 ms QRS Dur : 154 ms QT Int : 360 ms P-R-T Axes : 000 -31 134 degrees QTc Int : 515 ms Poor data quality, interpretation may be adversely affected Atrial fibrillation with rapid ventricular response with premature ventricular or aberrantly conducte d complexes Left axis deviation Left bundle branch block Abnormal ECG When compared with ECG of 20-SEP-2019 21:32, No significant change was found Confirmed by Hamzah Infante ([id number]) on 12/06/2020 10:39:46 AM Referred By: REFERRED SELF Confirmed By:Hamzah Infante
--- NOTE | 2020-12-06 10:45 | Electrocardiogram Report ---
Test Reason : Blood Pressure : / mmHG Vent. Rate : 090 BPM Atrial Rate : 117 BPM P-R Int : 000 ms QRS Dur : 154 ms QT Int : 326 ms P-R-T Axes : 000 -29 129 degrees QTc Int : 398 ms Atrial fibrillation with premature ventricular or aberrantly conducted complexes Left bundle branch block Abnormal ECG When compared with ECG of 05-DEC-2020 20:53, (unconfirmed) Confirmed by Hamzah Infante ([id number]) on 12/06/2020 10:45:17 AM Referred By: REFERRED SELF Confirmed By:Hamzah Infante
--- NOTE | 2020-12-06 13:00 | Cardiology Consultation ---
Date of Consultation He was admitted to the hospital with increasing shortness of breath and hypoxemia. He describes following a low-salt diet at home. He notes his weight is actually been coming down I did inquire as to whether his appetite's been reduced and he notes may be slightly. He denies any increased abdominal distention he has had worsening lower extremity edema. Has any palpitations or fluttering or feeling his heart racing. [place] any orthostatic symptoms. He does walk with a cane or a walker at home and has shortness of breath with ambulation. He has any dark stools or black stools. He does have some pinkish mucus and sounds like he had a traumatic Lua insertion and has has significant tea colored urine today. The rest of a complete review of systems is negative December 06, 2020 History of Present Illness Attending Physician: Mario Alberto Yi Allergies Allergy/AdvReac Type Severity Reaction Status Date / Time No Known Drug Allergies Allergy Unknown NKDA Verified 12/05/20 21:49 Home Medications Medication Instructions Recorded Confirmed Type aspirin 81 mg PO QAM 06/04/18 12/05/20 History nitroglycerin 0.4 mg sublingual 0.4 mg SUBLINGUAL Q5M PRN tab 02/25/19 12/05/20 History tablet blood sugar diagnostic #350 ea 07/05/19 11/17/20 Rx pantoprazole 40 mg tablet,delayed 40 mg PO BID #180 tab 02/21/20 12/05/20 Rx release insulin syringe-needle U-100 1 mL #500 ea 03/09/20 11/17/20 Rx 31 gauge x 5/16" cholecalciferol (vitamin D3) 50 4,000 unit PO QAM cap 04/22/20 12/05/20 History mcg (2,000 unit) capsule gabapentin 300 mg capsule 600 mg PO BID #56 cap 06/04/20 12/05/20 Rx Xarelto 15 mg PO QPM 10/21/20 12/05/20 History atorvastatin 80 mg PO HS 10/21/20 12/05/20 History duloxetine 60 mg PO QAM 10/21/20 12/05/20 History furosemide 40 mg PO BID 10/21/20 12/05/20 History metoprolol succinate 100 mg PO QAM 10/21/20 12/05/20 History montelukast 10 mg PO HS 10/21/20 12/05/20 History blood-glucose meter,continuous #1 ea 11/10/20 11/17/20 History blood-glucose sensor #3 ea 11/10/20 11/17/20 History blood-glucose transmitter #1 ea 11/10/20 11/17/20 History insulin glargine 100 unit/mL 75 unit SUBCUT BID ml 11/10/20 12/05/20 History subcutaneous solution spironolactone 25 mg tablet 25 mg PO DAILY tab 11/10/20 12/05/20 History lisinopril 5 mg tablet 5 mg PO QAM #30 tab 11/17/20 12/05/20 Rx insulin aspart U-100 [Novolog 65 unit SQ QID 12/05/20 12/05/20 History U-100 Insulin aspart] Patient History Medical History Adult situational stress disorder Anxiety Atrial fibrillation no cardioversion. C4 cervical fracture no surgical intervention. Full ROM. CAD (coronary artery disease) Carotid artery stenosis, asymptomatic Chronic kidney disease, stage III (moderate) Depression Dysphagia occasionally (per ) Gastroparesis GERD (gastroesophageal reflux disease) Hearing deficit [place] 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 BRAIN BLEED + SKULL/FACIAL FRACTURES. RESOLVED W/O SURGICAL INTERVENTION. [facility] ER --> [facility] BY AIR. Hyperlipidemia Hypertension ICD (implantable cardioverter-defibrillator) in place placed ~2017. Follows with Dr. Doran, last saw 10/20/20 Insomnia Kidney disease FOLLOWS W/ [place] NEPHRO Lumbar disc disease Osteoarthritis PAD (peripheral artery disease) Paroxysmal ventricular tachycardia Peripheral neuropathy Pneumonia hx. Poor historian history obtained from , [place]. Sinus bradycardia Situational depression Sleep apnea REFUSES CPAP/OXYGEN Spinal stenosis Subdural hematoma (~2018) history r/t fall Venous insufficiency Surgical History History of anesthesia reaction COMBATIVE History of back surgery History of cardiac cath MULTIPLE CATHS W/ STENTS - LAST 2004. History of cataract surgery History of cholecystectomy History of colonoscopy History of heart artery stent Total of 5 stents. History of knee replacement LEFT Hx of CABG 2004. # VESSELS? FOLLOWS W/ [place] S/P epidural steroid injection S/P ICD (internal cardiac defibrillator) procedure Family History Daughter Family history of reaction to anesthesia PONV Sister Cancer Other No significant family history Denies family history of Ovarian cancer Prostate cancer Coronary heart disease Breast cancer Colorectal cancer Social History Smoking Status: Former smoker Second Hand Exposure: No; Hx Alcohol Use: No Hx Substance Use: No Preferred Language: Peruvian Communication Ability: Effective Visual Impairment: Limited Hearing Ability: Hard of Hearing Clinical Account Liaison Required: No Beliefs That Will Affect Care: None marital status: Current Living Situation: Spouse current occupational status: retired Feels Safe at Home: Yes Safety Concerns: Feels Safe At This Time Childhood Exposure to Second-Hand Smoke: Yes caffeine: No during the past year weight has: remained stable Dental Care, Regularly: Yes Physical Activity Frequency: Does not Exercise Seatbelt Use: always Sunscreen Use: No Assistive Devices: Oxygen - at Night and Walker Results & Data ([facility]) Vital Signs (Past 12 Hours) Vital Signs Temp Pulse Pulse Resp BP Pulse Ox 12/06/20 11:28 36.5 C 83 18 167/72 H 95 12/06/20 07:14 76 20 97 12/06/20 07:11 75 12/06/20 06:28 36.3 C L 76 18 138/74 97 12/06/20 03:15 36.4 C L 111 H 24 139/88 100 12/06/20 03:01 102 H 23 97 12/06/20 03:00 100 H he is awake alert oriented x3 short of breath talking in sentences which she describes as his baseline HEENT moderately reduced carotid upstrokes his jugular venous pressure cannot be assessed there are no carotid bruits Lungs: Decreased breath sounds globally no rales rhonchi or wheezing Heart: Irregular rate and rhythm no appreciable murmurs Abdomen: Obese nontender nondistended positive bowel sounds extremities moderate pitting edema to the mid tibia bilaterally Psychiatric his affect appeared appropriate ASSESSMENT/PLAN: 1. Acute on Chronic systolic/diastolic CHF: He tends to have residual edema and continues to have such, especially in the right lower extremity compared to the left. Low-sodium diet, less than 2000 mg daily. Daily weights. If you look his renal function in October suggested a creatinine of about 1.5 and here his creatinine is completely normal and is not prerenal. It it suggest that he is not dry enough in addition his BNP is elevated. We likely will need to accept some degree of prerenal azotemia in order to improve his heart failure symptoms. In Dr. Doran's notes he suggest that some of his edema may be related to venous insufficiency. Entresto was started as an outpatient according to the outpatient records but his insurance would not pay for it and therefore he was switched back to lisinopril. I would suggest switching his furosemide to Bumex 1 mg twice daily to see if we can improve his diuresis. If necessary this can be uptitrated. He notes his and he do the cooking and they try to follow a low-salt diet. His blood pressures previously have been well controlled with the exception of this morning. If his blood pressures remain elevated we can increase his lisinopril further. He remains on 100 mg of Toprol-XL at night along with Aldactone and Xarelto. He plans to have an injection done in his back on Monday. He is hoping to get there we would have to hold his anticoagulation at least 2 days before the procedure. Dr. Doran notes in also notes that the patient did not want any further invasive procedures. If he were to change his mind upgrading his device to a biventricular defibrillator would be an option. 2. CAD status post CABG: Has had atypical chest discomfort at his ICD site which has been evaluated by EP in the past. No angina. Continue aspirin, beta elías, statin therapy. 911 for angina that is not resolved with nitroglycerin within 5 minutes. 3. Hypokalemia: Potassium has been well controlled on spironolactone and potassium supplementation. If potassium becomes more elevated on Entresto, would reduce potassium supplementation. Repeat labs in 1 week. 4. Hypertension: Blood pressure is well controlled. 5. Dyslipidemia: Continue high-intensity statin therapy. LDL is well controlled. 6. Atrial fibrillation: Permanent atrial fibrillation. Continue rate control strategy. Asymptomatic in this regard. Continue anticoagulation for stroke ris k reduction. Monitor CBC and renal function periodically. 7. Cardiomyopathy: LV systolic function was noted to be more reduced on 09/23/2019 echo that he preferred to avoid invasive evaluation and continue forward with medical therapy only. He had stated that he is 79 years old and he is "ready to go. Continue metoprolol succinate. Entresto was initiated in the past but his does not believe that he has the medication. He is willing to take low-dose Entresto today. Entresto prescribed. 8. LBBB
--- NOTE | 2020-12-06 16:28 | Hospitalist Progress Note ---
Date of Service December 06, 2020 Assessment & Plan (1) Acute on chronic respiratory failure with hypoxia: suspect combination of decompensated CHF as well as pneumonia. see below. patient is supposed to be on continuous NC O2 at home but often does not wear it. (2) Acute on chronic combined systolic and diastolic congestive heart failure: continue diuresis with bumex IV bid. net negative and clinically improving. cont BB. cont CORDELIA. K supplementation. appreciate cardiology consult. echo findings noted. (3) Pneumonia: right-sided. suspected. community-acquired. elevated WBC count at presentation, sputum production, anorexia, weakness. start rocephin and doxy for typical/atypical coverage. follow blood cx's. (4) Elevated troponin: likely myocardial demand ischemia in setting of above issues. 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): noted (12) PAD (peripheral artery disease): noted no symptoms at this time RLE size is much larger than LLE - states it is chronic (13) Chronic kidney disease, stage III (moderate): daily BMP while on diuretics (14) Permanent atrial fibrillation: rates acceptable at this time cont BB cont xarelto (15) DVT prophylaxis: xarelto will need PT/OT updated at bedside Admission and Anticipated Discharge Date Admission Date: December 05, 2020 Subjective at bedside during my visit he "feels a lot better today" appetite improved more energy not as short of breath still with productive cough - streaks of blood can lay flatter today in bed reports significant weakness, fatigue, and anorexia for 7-10 days before presentation Review of Systems Constitutional: no fever and no chills Respiratory: + cough, + dyspnea on exertion, + hemoptysis and + sputum production Cardiovascular: + edema; no chest pain Gastrointestinal: no abdominal pain Physical Exam Constitutional: + obese; no acute distress and no altered mental status ENMT: external ear and nose normal, oropharynx normal Nose: no epistaxis Respiratory: no respiratory distress Auscultation: + diminished lung sounds (right base), + crackles (bases) and + wheezes Cardiovascular: Rate/Rhythm: regular rate and + irregularly irregular Heart Sounds: normal S1, normal S2 and + murmur (2/6 LLSB, systolic) Vessels: + JVD, posterior tibial pulses present and dorsalis pedis pulses present Extremities: + edema RLE is much larger than the LLE; 2+ edema b/l Gastrointestinal (Abdomen): normal bowel sounds, soft, nontender, no hepatosplenomegaly Psychiatric: A+Ox3, euthymic affect Results & Data Results & Data ([facility]) Vital Signs (Past 12 Hours) Vital Signs Temp Pulse Pulse Resp BP Pulse Ox 12/06/20 15:07 36.4 C L 100 H 24 142/84 H 90 12/06/20 11:28 36.5 C 83 18 167/72 H 95 12/06/20 07:14 76 20 97 12/06/20 07:11 75 12/06/20 06:28 36.3 C L 76 18 138/74 97 bmp acceptable cxr - b/l infiltrates, right sided pleural effusion blood cx's negative PG Care Time/CCT Total # of Minutes Spent Total Time Spent with Patient: Total time spent is greater than 50% in coordination of care (as documented) at patient's floor/unit and/or counseling patient: Coding Level of Care Code 05888 Subseq Hosp Care Lvl 3 Diagnoses Acute on chronic respiratory failure with hypoxia J96.21 Acute on chronic combined systolic and diastolic congestive heart failure I50.43 Pneumonia J18.9 Laterality: unspecified laterality Lung location: unspecified part of lung Pneumonia type: due to unspecified organism Elevated troponin R77.8 Diabetes E11.9 Ventricular tachycardia I47.2 CAD, multiple vessel I25.10 Enlarged prostate without lower urinary tract symptoms (luts) N40.0 Hypertension I10 Hypertension type: essential hypertension Dyslipidemia E78.5 Presence of single chamber implantable cardioverter-defibrillator (ICD) Z95.810 PAD (peripheral artery disease) I73.9 Chronic kidney disease, stage III (moderate) N18.3 Permanent atrial fibrillation I48.2 DVT prophylaxis Z29.9 (1) Pneumonia Laterality: unspecified laterality Lung location: unspecified part of lung Pneumonia type: due to unspecified organism Qualified Code(s): J18.9 - Pneumonia, unspecified organism (2) Hypertension Hypertension type: essential hypertension Qualified Code(s): I10 - Essential (primary) hypertension
[2020-12-06] MEDS: DOXYCYCLINE HYCLATE 100 MG CAP PO SCH ×2 (17:25→20:23)
[2020-12-06] MEDS: cefTRIAXone SODIUM 2,000 MG in DEXTROSE 5% 50 ML IV SCH (17:25)
[2020-12-06] MEDS: BUMETANIDE 1 MG in SYRINGE 0 ML IV SCH (17:26)
--- NOTE | 2020-12-06 20:18 | Billing Data ---
Date of Service December 06, 2020 Coding Level of Care Code 86475 Initial Inpt Care Lvl 3
[2020-12-06] MEDS: ATORVASTATIN 40 MG TAB PO SCH (20:23)
[2020-12-06] MEDS: MONTELUKAST SODIUM 10 MG TABLET PO SCH (20:25)
[2020-12-07] MEDS: INSULIN ASPART 100 UNITS/ML 3 ML PEN SC SCH ×6 (00:31→21:06)
[2020-12-07 07:16] LABS: Estimated Average Glucose 249 mg/dl; Hemoglobin A1C 10.3 % (4.5-5.6)
[2020-12-07 07:23] LABS: Basophils # (auto) 0.02 K/uL (0-0.2); Basophils % (auto) 0.2 %; Eosinophils # (auto) 0.24 K/uL (0-0.5); Eosinophils % (auto) 1.9 %; Hematocrit (blood only) 40.1 % (42-52); Hemoglobin 13.2 g/dL (14.0-18.0); Immature Granulocytes # (auto) 0.04 K/uL (0.00-0.02); Immature Granulocytes % (auto) 0.3 %; Lymphocytes # (auto) 1.55 K/uL (1.2-3.4); Lymphocytes % (auto) 12.5 %; Mean Corpuscular Hemoglobin 32.6 pg (25-34); Mean Corpuscular Hgb Conc 32.9 g/dL (32-36); Mean Platelet Volume 10.6 fL (7.4-10.4); Monocytes # (auto) 1.42 K/uL (0.11-0.59); Monocytes % (auto) 11.5 %; Neutrophils # (auto) 9.12 K/uL (1.4-6.5); Neutrophils % (auto) 73.6 %; Platelet Count 279 K/uL (130-400); RDW Coefficient of Variation 14.4 % (11.5-14.5); RDW Standard Deviation 52.2 fL (36.4-46.3); Red Blood Count 4.05 M/uL (4.7-6.1); White Blood Count 12.39 K/uL (4.8-10.8)
[2020-12-07 07:56] LABS: Est GFR (African American) 79.1 ml/min; Potassium 3.3 mmol/L (3.5-5.1)
[2020-12-07 07:57] LABS: BUN Creatinine Ratio 19.9 (10-20); C Reactive Protein 9.15 mg/dl (0-0.29); Calcium 8.8 mg/dl (8.5-10.1); Creatinine Clr Calc Pharmacy 74.2 ml/min; Est GFR (Non-African American) 68.3 ml/min
[2020-12-07] MEDS: METOPROLOL SUCC 50MG EXT REL TAB PO SCH (08:36)
[2020-12-07] MEDS: CHOLECALCIFEROL 1,000 UNITS 25 MCG TAB PO SCH (08:36)
[2020-12-07] MEDS: BUMETANIDE 1 MG in SYRINGE 0 ML IV SCH ×2 (08:36→16:16)
[2020-12-07] MEDS: ASPIRIN 81 MG ECTAB PO SCH (08:37)
[2020-12-07] MEDS: DULoxetine HCL 60 MG CAP PO SCH (08:37)
[2020-12-07] MEDS: DOXYCYCLINE HYCLATE 100 MG CAP PO SCH ×2 (08:37→20:55)
[2020-12-07] MEDS: GABAPENTIN 300 MG CAP PO SCH ×2 (08:37→20:55)
[2020-12-07] MEDS: PANTOprazole 40 MG TAB PO SCH ×2 (08:37→20:54)
[2020-12-07] MEDS: guaiFENesin 600 MG TABCR PO SCH ×2 (08:37→20:54)
[2020-12-07] MEDS: lisinopril 5 MG TAB PO SCH (08:37)
[2020-12-07] MEDS ORDERED: POTASSIUM CHLORIDE CRTAB 20 MEQ TABCR PO STA (08:45)
[2020-12-07] MEDS ORDERED: INSULIN GLARGINE 100 UNIT/ML VIAL SC SCH (09:00)
--- NOTE | 2020-12-07 10:01 | Pharmacy Report ---
Pharmacy Glycemic Short Note 2 - Date of Service December 07, 2020 - Glycemic Short BSG Results (Last 24 hours): 12/06/20 12/06/20 12/06/20 11:50 16:30 20:10 Glucose POC Glucose 170 H 128 H 65 L* 12/06/20 12/06/20 12/07/20 20:11 20:32 00:00 Glucose POC Glucose 59 L* 81 201 H 12/07/20 12/07/20 12/07/20 04:16 06:56 07:28 Glucose 80 POC Glucose 78 84 OUTPATIENT ANTIDIABETIC REGIMEN: * Lantus 75 units SC BID * Insulin aspart 65 units SC QID + sliding scale * HbA1c pending ASSESSMENT: 12/07 * Pt has received 112 units of insulin over the past 24hrs * 75 units of basal with Lantus * 37 units of bolus with NovoLog * BSGs 189-330-227-128-65/59/75-53-674-78-84 mg/dl * Pt with HYPO last evening at bedtime after receiving 8 units of NovoLog at dinner. Will loosen CF/CR * AM fasting BSG is below goal range this morning at 84mg/dl. Will decrease basal insulin 12/06 * BM is an 79 year old male admitted last evening with two day history of worsening shortness of breath * Per previous glycemic data, patient requires significantly less insulin than outpatient doses would suggest * Patient received 75 units of Lantus prior to admission and an additional 50 units last evening * 75 units given this morning - will utilize Lantus scale this evening PLAN FOR INPATIENT GLYCEMIC CONTROL: * Hold outpatient oral diabetes medications * Basal insulin: decrease * Lantus 50 units SC this morning * Lantus scale 0-25 units SC BID starting this evening * Bolus insulin * NovoLog per scale ACHS or Q6hrs while NPO * Goal Range: Low 110 mg/dL - High 140 mg/dL * Correction Factor: 20 mg/dL/unit * Nutritional / Prandial insulin per carb ratio of 1 unit per 6 grams CHO consumed PLAN FOR DISCHARGE: * tbd
--- NOTE | 2020-12-07 10:18 | Electrocardiogram Report ---
Test Reason : Blood Pressure : / mmHG Vent. Rate : 083 BPM Atrial Rate : 441 BPM P-R Int : 000 ms QRS Dur : 158 ms QT Int : 448 ms P-R-T Axes : 000 -31 110 degrees QTc Int : 526 ms Atrial fibrillation Left axis deviation Left bundle branch block Abnormal ECG When compared with ECG of 06-DEC-2020 05:42, T wave inversion less evident in Anterolateral leads QT has lengthened Confirmed by Hamzah Infante ([id number]) on 12/07/2020 10:18:18 AM Referred By: REFERRED SELF Confirmed By:Hamzah Infante
[2020-12-07] MEDS: POTASSIUM CHLORIDE CRTAB 20 MEQ TABCR PO SCH ×2 (12:15→20:54)
--- NOTE | 2020-12-07 12:18 | Cardiology Progress Note ---
Date of Service December 07, 2020 Assessment & Plan Admission and Anticipated Discharge Date Admission Date: December 05, 2020 Subjective He is feeling better this morning. He does not appear short of breath talking in sentences. He denies any chest pain or chest pressure. Denies any palpitations or fluttering or lightheadedness or dizziness. He notes he has been urinating frequently. His lower extremity edema has improved. His mucus production and cough have resolved. He slept well last night without shortness of breath except to go to the bathroom. Results & Data ([facility]) Vital Signs (Past 12 Hours) Vital Signs Temp Pulse Pulse Resp BP Pulse Ox 12/07/20 11:15 36.6 C 95 H 18 132/82 91 12/07/20 07:48 85 12/07/20 07:22 36.5 C 76 18 108/62 95 12/07/20 03:12 36.3 C L 73 18 125/72 91 12/07/20 03:06 73 24 91 12/07/20 00:44 89 he is awake alert oriented x3; he is not short of breath talking in sentences today HEENT moderately reduced carotid upstrokes his jugular venous pressure cannot be assessed there are no carotid bruits Lungs: Decreased breath sounds right base compared to the left Heart: Irregular rate and rhythm no appreciable murmurs Abdomen: Obese nontender nondistended positive bowel sounds extremities: Mild pitting edema to the mid tibia bilaterally, much improved from yesterday Psychiatric his affect appeared appropriate ASSESSMENT/PLAN: 1. Acute on Chronic systolic/diastolic CHF: He tends to have residual edema and continues to have such, especially in the right lower extremity compared to the left. Low-sodium diet, less than 2000 mg daily. Daily weights. If you look his renal function in October suggested a creatinine of about 1.5 and here his creatinine is completely normal and is not prerenal. It it suggest that he is not dry enough in addition his BNP is elevated. We likely will need to accept some degree of prerenal azotemia in order to improve his heart failure symptoms. In Dr. Doran's notes he suggest that some of his edema may be related to venous insufficiency. Entresto was started as an outpatient according to the outpatient records but his insurance would not pay for it and therefore he was switched back to lisinopril. I would suggest switching his furosemide to Bumex 1 mg twice daily to see if we can improve his diuresis. If necessary this can be uptitrated. He notes his and he do the cooking and they try to follow a low-salt diet. His blood pressures have been well controlled with the exception of this mo rning. If his blood pressures remain elevated we can increase his lisinopril further. He remains on 100 mg of Toprol-XL at night along with Aldactone and Xarelto. As discussed with nursing I would continue with a milligram of IV Bumex twice daily. They're replacing his potassium currently. Check a BMP and a magnesium this afternoon just to make sure that his electrolytes have not worsened with IV diuretics. If he can afford Bumex as an outpatient it appears he is had a better diuresis than he has with furosemide. His echocardiogram is very limited due to his body habitus his overall ejection fraction was a range of 40% possibly he with an LAD wall motion abnormality. Dr. Doran will return tomorrow to reassume his care. 2. CAD status post CABG: Has had atypical chest discomfort at his ICD site which has been evaluated by EP in the past. No angina. Continue aspirin, beta elías, statin therapy. 3. Hypokalemia: spironolactone and potassium supplementation. 4. Hypertension: Blood pressure is well controlled. 5. Dyslipidemia: Continue high-intensity statin therapy. LDL is well controlled. 6. Atrial fibrillation: Permanent atrial fibrillation. Continue rate control strategy. Asymptomatic in this regard. Continue anticoagulation for stroke risk reduction. 7. Cardiomyopathy 8. LBBB
[2020-12-07 15:33] LABS: Potassium 3.7 mmol/L (3.5-5.1)
[2020-12-07] MEDS: cefTRIAXone SODIUM 2,000 MG in DEXTROSE 5% 50 ML IV SCH (16:16)
[2020-12-07] MEDS: ACETAMINOPHEN 500 MG TAB PO SCH ×2 (16:16→20:53)
[2020-12-07] MEDS: DICLOFENAC SOD 1% GEL 100 GM TUBE EXT SCH ×2 (16:17→20:53)
[2020-12-07] MEDS: MONTELUKAST SODIUM 10 MG TABLET PO SCH (20:54)
[2020-12-07] MEDS: RIVAROXABAN 15 MG TAB PO SCH (20:54)
[2020-12-07] MEDS: ATORVASTATIN 40 MG TAB PO SCH (20:55)
[2020-12-07] MEDS: INSULIN GLARGINE 100 UNIT/ML VIAL SC SCH (21:08)
--- NOTE | 2020-12-07 21:27 | Hospitalist Progress Note ---
Date of Service December 07, 2020 Assessment & Plan (1) Acute on chronic respiratory failure with hypoxia: suspect combination of decompensated CHF as well as pneumonia. acute component improving nicely. patient is supposed to be on continuous NC O2 at home but often does not wear it. (2) Acute on chronic combined systolic and diastolic congestive heart failure: IMPROVING volume status. continue diuresis with bumex IV bid. BUN and Cr stable. cont BB. cont CORDELIA. cont K supplementation. appreciate cardiology consult. echo findings noted. could not afford entresto. (3) Pneumonia: right-sided. suspected. community-acquired. IMPROVING. elevated WBC count at presentation, sputum production, anorexia, weakness - all suggestive of infectious process. day #2 of rocephin and doxy for typical/atypical coverage. blood cx's negative. COVID negative at admission. And, patient had COVID vaccine. (4) Elevated troponin: likely myocardial demand ischemia in setting of above issues. (5) Diabetes: appreciate pharmacy management good control overall cont lantus cont novolog DM diet (6) Ventricular tachycardia: history of has AICD in place telemetry with stable a.fib (7) CAD, multiple vessel: with resulting cardiomyopathy cont BB cont CORDELIA cont asa cont statin (8) Enlarged prostate without lower urinary tract symptoms (luts): no issues at this time had terry placed for accurate I's and O's mild hematuria from terry insertion leave terry until hematuria clears then pull it (9) Hypertension: cont usual home meds (10) Dyslipidemia: statin LDL of 61 in 05/2020 (11) Presence of single chamber implantable cardioverter-defibrillator (ICD): noted (12) PAD (peripheral artery disease): noted no symptoms at this time RLE size is much larger than LLE - states it is chronic is on xarelto so chances of RLE having DVT are low (13) Chronic kidney disease, stage III (moderate): daily BMP while on diuretics Cr remains stable (14) Permanent atrial fibrillation: rates acceptable at this time cont BB cont xarelto (15) Lumbar stenosis with neurogenic claudication: chronic. but does complain of it today, maybe a little worse than baseline. add voltaren gel qid. add k-pad heating pad. schedule tylenol 1gm TID. (16) DVT prophylaxis: xarelto PT/OT updated at bedside yesterday Admission and Anticipated Discharge Date Admission Date: December 05, 2020 Subjective tele overnight - rate-controlled renea patient lying nearly flat in bed during my visit he was initially sleeping awoke easily stated "I feel good" when asked specifically what was feeling better he responded -- "everything" cough improved bloody sputum resolved dyspnea and orthopnea improved still some PALENCIA but not as bad as previous excellent appetite Review of Systems Constitutional: no fever, no chills, no fatigue and no anorexia Respiratory: + cough and + sputum production; no hemoptysis and no wheezing Cardiovascular: + edema; no chest pain Gastrointestinal: no abdominal pain and no diarrhea/loose stools Musculoskeletal: + back pain (left lumbar region "for years"; largest complaint today ) Physical Exam Constitutional: + obese; no acute distress and no altered mental status ENMT: external ear and nose normal, oropharynx normal Respiratory: no respiratory distress Auscultation: + crackles (bases b/l - mild; better air movement today ); no wheezes Cardiovascular: Rate/Rhythm: regular rate and + irregularly irregular Heart Sounds: normal S1, normal S2 and + murmur (2/6 LLSB, systolic) Vessels: + JVD, posterior tibial pulses present and dorsalis pedis pulses present Extremities: + edema (2+ RLE, 1+ LLE; right leg much larger in bulk than left leg ) Gastrointestinal (Abdomen): normal bowel sounds, soft, nontender, no hepatosplenomegaly Musculoskeletal: Spine: + paraspinal tenderness (left - lumbar region, especially over left SI joint ) Psychiatric: A+Ox3, euthymic affect Results & Data Results & Data ([facility]) Vital Signs (Past 12 Hours) Vital Signs Temp Pulse Pulse Resp BP Pulse Ox 12/07/20 19:31 36.4 C L 78 20 118/64 90 12/07/20 15:28 36.5 C 79 18 95/50 L 95 12/07/20 15:00 89 12/07/20 11:15 36.6 C 95 H 18 132/82 91 Laboratory Results Laboratory Results - last 24 hr 12/06/20 12/07/20 12/07/20 03:22 00:00 04:16 WBC RBC Hgb Hct MCV MCH MCHC RDW Std Deviation RDW Coeff of Paulo Plt Count MPV Immature Gran % (Auto) Neut % (Auto) Lymph % (Auto) [place] % (Auto) Eos % (Auto) Baso % (Auto) Neut # (Auto) Lymph # (Auto) [place] # (Auto) Eos # (Auto) Baso # (Auto) Immature Gran # (Auto) Sodium Potassium Chloride Carbon Dioxide Anion Gap BUN Creatinine Est Cr Clr Drug Dosing Est GFR ( Amer) Est GFR (Non-Af Amer) BUN/Creatinine Ratio Glucose POC Glucose 201 H 78 Estimat Average Glucose 249 Hemoglobin A1c 10.3 H Calcium Magnesium C-Reactive Protein Procalcitonin 12/07/20 12/07/20 12/07/20 06:56 06:56 06:56 WBC 12.39 H RBC 4.05 L Hgb 13.2 L Hct 40.1 L MCV 99.0 MCH 32.6 MCHC 32.9 RDW Std Deviation 52.2 H RDW Coeff of Paulo 14.4 Plt Count 279 MPV 10.6 H Immature Gran % (Auto) 0.3 Neut % (Auto) 73.6 Lymph % (Auto) 12.5 [place] % (Auto) 11.5 Eos % (Auto) 1.9 Baso % (Auto) 0.2 Neut # (Auto) 9.12 H Lymph # (Auto) 1.55 [place] # (Auto) 1.42 H Eos # (Auto) 0.24 Baso # (Auto) 0.02 Immature Gran # (Auto) 0.04 H Sodium 140 Potassium 3.3 L Chloride 100 Carbon Dioxide 38 H Anion Gap 2.0 L BUN 21 H Creatinine 1.03 Est Cr Clr Drug Dosing 74.2 Est GFR ( Amer) 79.1 Est GFR (Non-Af Amer) 68.3 BUN/Creatinine Ratio 19.9 Glucose 80 POC Glucose Estimat Average Glucose Hemoglobin A1c Calcium 8.8 Magnesium C-Reactive Protein 9.15 H Procalcitonin 0.16 12/07/20 12/07/20 12/07/20 07:28 11:33 14:54 WBC RBC Hgb Hct MCV MCH MCHC RDW Std Deviation RDW Coeff of Paulo Plt Count MPV Immature Gran % (Auto) Neut % (Auto) Lymph % (Auto) [place] % (Auto) Eos % (Auto) Baso % (Auto) Neut # (Auto) Lymph # (Auto) [place] # (Auto) Eos # (Auto) Baso # (Auto) Immature Gran # (Auto) Sodium Potassium 3.7 Chloride Carbon Dioxide Anion Gap BUN Creatinine Est Cr Clr Drug Dosing Est GFR ( Amer) Est GFR (Non-Af Amer) BUN/Creatinine Ratio Glucose POC Glucose 84 194 H Estimat Average Glucose Hemoglobin A1c Calcium Magnesium 2.0 C-Reactive Protein Procalcitonin 12/07/20 12/07/20 16:31 20:23 WBC RBC Hgb Hct MCV MCH MCHC RDW Std Deviation RDW Coeff of Paulo Plt Count MPV Immature Gran % (Auto) Neut % (Auto) Lymph % (Auto) [place] % (Auto) Eos % (Auto) Baso % (Auto) Neut # (Auto) Lymph # (Auto) [place] # (Auto) Eos # (Auto) Baso # (Auto) Immature Gran # (Auto) Sodium Potassium Chloride Carbon Dioxide Anion Gap BUN Creatinine Est Cr Clr Drug Dosing Est GFR ( Amer) Est GFR (Non-Af Amer) BUN/Creatinine Ratio Glucose POC Glucose 155 H 209 H Estimat Average Glucose Hemoglobin A1c Calcium Magnesium C-Reactive Protein Procalcitonin PG Care Time/CCT Total # of Minutes Spent Total Time Spent with Patient: Total time spent is greater than 50% in coordination of care (as documented) at patient's floor/unit and/or counseling patient: Coding Level of Care Code 82110 Subseq Hosp Care Lvl 3 Diagnoses Acute on chronic respiratory failure with hypoxia J96.21 Acute on chronic combined systolic and diastolic congestive heart failure I50.43 Pneumonia J18.9 Laterality: unspecified laterality Lung location: unspecified part of lung Pneumonia type: due to unspecified organism Elevated troponin R77.8 Diabetes E11.9 Ventricular tachycardia I47.2 CAD, multiple vessel I25.10 Enlarged prostate without lower urinary tract symptoms (luts) N40.0 Hypertension I10 Hypertension type: essential hypertension Dyslipidemia E78.5 Presence of single chamber implantable cardioverter-defibrillator (ICD) Z95.810 PAD (peripheral artery disease) I73.9 Chronic kidney disease, stage III (moderate) N18.3 Permanent atrial fibrillation I48.2 Lumbar stenosis with neurogenic claudication M48.062 DVT prophylaxis Z29.9 (1) Pneumonia Laterality: unspecified laterality Lung location: unspecified part of lung Pneumonia type: due to unspecified organism Qualified Code(s): J18.9 - Pneumonia, unspecified organism (2) Hypertension Hypertension type: essential hypertension Qualified Code(s): I10 - Essential (primary) hypertension
[2020-12-08 07:19] LABS: BUN Creatinine Ratio 21.9 (10-20); Calcium 8.7 mg/dl (8.5-10.1); Creatinine Clr Calc Pharmacy 64.9 ml/min; Est GFR (African American) 67.1 ml/min; Est GFR (Non-African American) 57.9 ml/min; Potassium 3.9 mmol/L (3.5-5.1)
[2020-12-08] MEDS: INSULIN ASPART 100 UNITS/ML 3 ML PEN SC SCH ×4 (08:41→20:43)
[2020-12-08] MEDS: GABAPENTIN 300 MG CAP PO SCH ×2 (08:42→20:36)
[2020-12-08] MEDS: CHOLECALCIFEROL 1,000 UNITS 25 MCG TAB PO SCH (08:42)
[2020-12-08] MEDS: METOPROLOL SUCC 50MG EXT REL TAB PO SCH (08:42)
[2020-12-08] MEDS: PANTOprazole 40 MG TAB PO SCH ×2 (08:43→20:36)
[2020-12-08] MEDS: POTASSIUM CHLORIDE CRTAB 20 MEQ TABCR PO SCH ×3 (08:43→20:38)
[2020-12-08] MEDS: guaiFENesin 600 MG TABCR PO SCH ×2 (08:43→20:37)
[2020-12-08] MEDS: DOXYCYCLINE HYCLATE 100 MG CAP PO SCH ×2 (08:43→20:35)
[2020-12-08] MEDS: lisinopril 5 MG TAB PO SCH (08:44)
[2020-12-08] MEDS: ASPIRIN 81 MG ECTAB PO SCH (08:44)
[2020-12-08] MEDS: DULoxetine HCL 60 MG CAP PO SCH (08:44)
[2020-12-08] MEDS: ACETAMINOPHEN 500 MG TAB PO SCH ×3 (08:44→20:43)
[2020-12-08] MEDS: BUMETANIDE 1 MG in SYRINGE 0 ML IV SCH ×2 (08:47→18:05)
[2020-12-08] MEDS: DICLOFENAC SOD 1% GEL 100 GM TUBE EXT SCH ×4 (08:48→20:43)
[2020-12-08] MEDS ORDERED: INSULIN GLARGINE 100 UNIT/ML VIAL SC SCH (09:00)
[2020-12-08] MEDS ORDERED: BUMETANIDE 1 MG in SYRINGE 0 ML IV ONE (09:15)
--- NOTE | 2020-12-08 13:00 | Pharmacy Report ---
Pharmacy Glycemic Short Note 2 - Date of Service December 08, 2020 - Glycemic Short BSG Results (Last 24 hours): 12/07/20 12/07/20 12/08/20 16:31 20:23 06:23 Glucose 180 H POC Glucose 155 H 209 H 12/08/20 12/08/20 07:47 11:30 Glucose POC Glucose 184 H 296 H OUTPATIENT ANTIDIABETIC REGIMEN: * Lantus 75 units SC BID * Insulin aspart 65 units SC QID + sliding scale * HbA1c: 10.3% (12/06/20) ASSESSMENT: 12/08 * BSGs yesterday of 84, 194, 155, and 209 mg/dL * Received 78 units of insulin (50 units of basal and 28 units of prandial/correctional) * Patient should have received an additional 25 units of Lantus last evening, but it was inappropriately held * Fasting BSG of 184 mg/dL this morning - will increase basal insulin today * BSGs trended up throughout day yesterday - will tighten Novolog parameters today 12/07 * Pt has received 112 units of insulin over the past 24hrs * 75 units of basal with Lantus * 37 units of bolus with NovoLog * BSGs 703-130-674-128-65/59/25-99-042-78-84 mg/dl * Pt with HYPO last evening at bedtime after receiving 8 units of NovoLog at dinner. Will loosen CF/CR * AM fasting BSG is below goal range this morning at 84mg/dl. Will decrease basal insulin 12/06 * BM is an 79 year old male admitted last evening with two day history of worsening shortness of breath * Per previous glycemic data, patient requires significantly less insulin than outpatient doses would suggest * Patient received 75 units of Lantus prior to admission and an additional 50 units last evening * 75 units given this morning - will utilize Lantus scale this evening PLAN FOR INPATIENT GLYCEMIC CONTROL: * Basal insulin: increase * Lantus 75 units SC this morning * Lantus scale 0-25 units SC HS (see EHR for details) * Bolus insulin * NovoLog per scale ACHS or Q6hrs while NPO * Goal Range: Low 110 mg/dL - High 140 mg/dL * Correction Factor: 15 mg/dL/unit * Nutritional / Prandial insulin per carb ratio of 1 unit per 4 grams CHO consumed PLAN FOR DISCHARGE: * tbd
--- NOTE | 2020-12-08 14:08 | Heart Failure Progress Note ---
Date of Service December 08, 2020 Assessment & Plan (1) Acute on chronic combined systolic and diastolic congestive heart failure: (2) CAD, multiple vessel: (3) Permanent atrial fibrillation: (4) Cardiomyopathy: (5) Atrial fibrillation: 1. Chronic systolic/diastolic CHF: He appears near euvolemic on exam. Weight is almost to dry weight. He tends to have residual edema. His pulmonary symptoms are improved. BUN is slightly increased, creatinine stable. He is tolerating Bumex 1 mg IV BID. Can likely convert to PO Bumex tomorrow. Would recommend Bumex 1 mg BID on discharge with Spironolactone. Continue GDMT- Entresto was recommended in the past but denied by his insurance. Lisinopril recommended instead. Jardiance on hold per Sera Kayla. Continue Metoprolol for rate control. Low-sodium diet, less than 2000 mg daily. Daily STANDING weights. Strict I&Os. Encourage supplemental oxygen on discharge. Case management is discussing concentrator with supplier. 2. CAD status post CABG: Has had atypical chest discomfort at his ICD site which has been evaluated by EP in the past. No angina. Continue aspirin, beta han, statin therapy. 3. Hypokalemia: Recently hyperkalemic- Spironolactone and potassium recently held as outpatient. Spironolactone resumed 12/02/20 but not currently getting now. Ok to resume with close monitoring. 4. Hypertension: Stable. Continue current medical regimen. 5. Dyslipidemia: Continue high-intensity statin therapy. LDL is well controll ed. 6. Atrial fibrillation: Permanent atrial fibrillation. Continue rate control strategy. Asymptomatic in this regard. Continue anticoagulation for stroke risk reduction. Monitor CBC and renal function periodically. 7. Cardiomyopathy: LV systolic function was noted to be more reduced on 09/23/2019 echo that he preferred to avoid invasive evaluation and continue forward with medical therapy only. He had stated that he is 79 years old and he is "ready to go. Continue metoprolol succinate. Entresto was initiated in the past but denied by insurance. Lisinopril recommended instead, 5 mg. Can continue to titrate as outpatient. Resume Spironolactone. He has an ICD. QRS is borderline, could consider upgrade to bi-ventricular device if he's willing to consider. 8: ICD: Remote transmission from 11/16/20, no VF/VT. Disposition: Will continue to follow during hospitalization. ANticipate close outpatient follow up with the heart failure program. Admission and Anticipated Discharge Date Admission Date: December 05, 2020 Subjective Patient reports he's feeling significantly improved. He's sitting at the bedside chair. He continues to wear supplemental O2, 3L. He continues to have lower extremity edema which is somewhat chronic. He's net negative 1.2 L and weight is 257 lb today on the standing scale. Dry weight at home is typically 255 lb. Physical Exam Physical Exam: Gen.: No acute distress. Alert. Supplemental O2. HEENT: Anicteric sclera. Mucus membranes moist. Neck: Thick neck. No appreciable JVD or hepatic jugular reflux. Cardiac: PMI was nonpalpable. No ventricular heave. Irregularly irregular. Normal rate. Normal S1-S2. 1/6 early peaking FELIX at RUSB. No rubs or gallops. Pulmonary: Decreased breath sounds bilaterally, decreased breath sounds at the right base, otherwise clear to auscultation. Abdomen: Obese. Soft, nontender, nondistended, with normoactive bowel sounds. No bruits noted. Extremities: Very weak right radial pulse. 2+ left radial pulse. Weak distal lower extremity pulses. 2+ right lower extremity edema at the ankle. 1+ left lower extremity edema at the ankle. No cyanosis. Psychiatric: Affect appears appropriate. Results & Data ([facility]) Vital Signs (Past 12 Hours) Vital Signs Temp Pulse Resp BP Pulse Ox 12/08/20 11:53 97.9 F 92 H 18 128/77 93 12/08/20 07:45 98.2 F 90 20 142/76 H 95 12/08/20 04:01 97.3 F L 67 18 122/56 L 97 PG Care Time/CCT Total # of Minutes Spent Total Time Spent with Patient: Total time spent is greater than 50% in coordination of care (as documented) at patient's floor/unit and/or counseling patient: Heart Failure Data/Metrics Heart Failure Type: Combined Systolic Diastolic Ejection Fraction: 35-40% NYHA classification: III: Sx w/ ltd. activity Risk Stratification: B Dry Weight (kg): 255 Weight: 257 lb Pacemaker: No Implanted Cardiac Defibrillator (ICD): Yes Bi-V Pacemaker: No Bi-V Defibrillator: No Advanced Directives Discussed/Complete: Yes Diabetes Mellitus: Yes Evidenced Based Beta Han Therapy Beta Han Therapy: Yes Beta Han Name: Metoprolol Succinate CORDELIA/ARB/ARNI Therapy CORDELIA/ARB/ARNI Therapy: Yes CORDELIA/ARB/ARNI Name: Lisinopril SGLT-2 Inhibitor Therapy SGLT-2 Inhibitor Therapy: Contraindicated (Stopped per endocrine.) SGLT-2 Inhibitor Contraindications: Other Coding Level of Care Code 05307 Subs Hosp Care [facility] 3 Diagnoses Acute on chronic combined systolic and diastolic congestive heart failure I50.43 CAD, multiple vessel I25.10 Permanent atrial fibrillation I48.2 Cardiomyopathy I42.9 Atrial fibrillation I48.91 Atrial fibrillation type: unspecified (1) Atrial fibrillation Atrial fibrillation type: unspecified Qualified Code(s): I48.91 - Unspecified atrial fibrillation
--- NOTE | 2020-12-08 14:27 | Hospitalist Progress Note ---
Date of Service December 08, 2020 Assessment & Plan (1) Acute on chronic respiratory failure with hypoxia: suspect combination of decompensated CHF as well as pneumonia. acute components continue to improve. patient is supposed to be on continuous NC O2 at home but often does not wear it. (2) Acute on chronic combined systolic and diastolic congestive heart failure: IMPROVING volume status clinically. continue diuresis with bumex IV bid. will give an additional 1mg of IV bumex this am to see if we can enhance his diuresis. BUN and Cr stable. daily weights. cont BB. cont CORDELIA. cont K supplementation. appreciate cardiology consult. care d/w Ms Gresham from CHF clinic today. echo findings noted. could not afford entresto by report. (3) Pleural effusion: he cont to have significant diminished breath sounds in the right base. cxr obtained - moderate effusion on right, small left. CT chest in 2019 showed numerous lymph nodes and effusions. given his smoking history will repeat a chest CT to ensure no cancer/nodules are present, reassess the effusions, etc. (4) Pneumonia: suspected. community-acquired. IMPROVING. elevated WBC count at presentation, sputum production, anorexia, weakness - all suggestive of infectious process. day #3 of rocephin and doxy for typical/atypical coverage. blood cx's negative. COVID negative at admission. And, patient had COVID vaccine. can likely transition to PO abx tomorrow to complete the course. (5) Elevated troponin: likely myocardial demand ischemia in setting of above issues. (6) Diabetes: appreciate pharmacy management cont lantus cont novolog DM diet (7) Ventricular tachycardia: history of has AICD in place telemetry with stable a.fib no VT this admission (8) CAD, multiple vessel: with resulting cardiomyopathy cont BB cont CORDELIA cont asa cont statin (9) Enlarged prostate without lower urinary tract symptoms (luts): no issues at this time voiding well (10) Hypertension: cont usual home meds (11) Dyslipidemia: statin LDL of 61 in 05/2020 (12) Presence of single chamber implantable cardioverter-defibrillator (ICD): noted (13) PAD (peripheral artery disease): noted no symptoms at this time RLE size is much larger than LLE - states it is chronic is on xarelto so chances of RLE having DVT are low (14) Chronic kidney disease, stage III (moderate): daily BMP while on diuretics Cr remains stable (15) Permanent atrial fibrillation: rates controlled with BB cont xarelto (16) Lumbar stenosis with neurogenic claudication: chronic. pain improved with voltaren gel qid and scheduled tylenol 1gm TID. (17) DVT prophylaxis: xarelto cont PT/OT grand-daughter updated today Admission and Anticipated Discharge Date Admission Date: December 05, 2020 Subjective tele - a.fib, rates controlled feels "great" - eating well, dyspnea improved, cough improved, hemoptysis resolved mild PALENCIA only no orthopnea back pain improved with scheduled tylenol & voltaren gel qid Review of Systems Constitutional: no fever, no chills, no fatigue and no anorexia Respiratory: + cough and + dyspnea on exertion; no hemoptysis and no wheezing Cardiovascular: + edema (nearing his baseline amount); no chest pain Gastrointestinal: no abdominal pain, no nausea and no vomiting Physical Exam Constitutional: + obese; no acute distress and no altered mental status ENMT: external ear and nose normal, oropharynx normal Respiratory: no respiratory distress Auscultation: + diminished lung sounds (both bases, much worse on right ) and + crackles (bases b/l - mild); no wheezes Cardiovascular: Rate/Rhythm: regular rate and + irregularly irregular Heart Sounds: normal S1, normal S2 and + murmur (2/6 LLSB, systolic) Vessels: + JVD (minimal ), posterior tibial pulses present and dorsalis pedis pulses present Extremities: + edema (1-2+ RLE, <1+ LLE; right leg much larger in bulk than left leg ) Gastrointestinal (Abdomen): normal bowel sounds, soft, nontender, no hepatosplenomegaly Psychiatric: A+Ox3, euthymic affect Results & Data Results & Data ([facility]) Vital Signs (Past 12 Hours) Vital Signs Temp Pulse Resp BP Pulse Ox 12/08/20 11:53 36.6 C 92 H 18 128/77 93 12/08/20 07:45 36.8 C 90 20 142/76 H 95 12/08/20 04:01 36.3 C L 67 18 122/56 L 97 Laboratory Results Laboratory Results - last 24 hr 12/07/20 12/07/20 12/07/20 14:54 16:31 20:23 Sodium Potassium 3.7 Chloride Carbon Dioxide Anion Gap BUN Creatinine Est Cr Clr Drug Dosing Est GFR ( Amer) Est GFR (Non-Af Amer) BUN/Creatinine Ratio Glucose POC Glucose 155 H 209 H Calcium Magnesium 2.0 12/08/20 12/08/20 12/08/20 06:23 07:47 11:30 Sodium 138 Potassium 3.9 Chloride 101 Carbon Dioxide 34 H Anion Gap 3.0 BUN 26 H Creatinine 1.18 Est Cr Clr Drug Dosing 64.9 Est GFR ( Amer) 67.1 Est GFR (Non-Af Amer) 57.9 BUN/Creatinine Ratio 21.9 H Glucose 180 H POC Glucose 184 H 296 H Calcium 8.7 Magnesium PG Care Time/CCT Total # of Minutes Spent Total Time Spent with Patient: Total time spent is greater than 50% in coordination of care (as documented) at patient's floor/unit and/or counseling patient: Coding Level of Care Code 85228 Subseq Hosp Care Lvl 3 Diagnoses Acute on chronic respiratory failure with hypoxia J96.21 Acute on chronic combined systolic and diastolic congestive heart failure I50.43 Pleural effusion J90 Pneumonia J18.9 Laterality: unspecified laterality Lung location: unspecified part of lung Pneumonia type: due to unspecified organism Elevated troponin R77.8 Diabetes E11.9 Ventricular tachycardia I47.2 CAD, multiple vessel I25.10 Enlarged prostate without lower urinary tract symptoms (luts) N40.0 Hypertension I10 Hypertension type: essential hypertension Dyslipidemia E78.5 Presence of single chamber implantable cardioverter-defibrillator (ICD) Z95.810 PAD (peripheral artery disease) I73.9 Chronic kidney disease, stage III (moderate) N18.3 Permanent atrial fibrillation I48.2 Lumbar stenosis with neurogenic claudication M48.062 DVT prophylaxis Z29.9 (1) Hypertension Hypertension type: essential hypertension Qualified Code(s): I10 - Essential (primary) hypertension (2) Pneumonia Laterality: unspecified laterality Lung location: unspecified part of lung Pneumonia type: due to unspecified organism Qualified Code(s): J18.9 - Pneumonia, unspecified organism
--- NOTE | 2020-12-08 15:16 | XRay Report ---
XR chest 2V PA/lateral CLINICAL HISTORY: decreased BS b/l, R>L; effusions? COMPARISON STUDY: 12/06/2020 FINDINGS: The heart remains enlarged. There are postsurgical changes of a midline sternotomy. There i s a left subclavian pacer/defibrillator present. There is improving pulmonary edema. There are bilate ral pleural effusions right greater than left. There are improving basilar airspace opacities.[ IMPRESSION: Improving pulmonary edema with persistent bilateral pleural effusions right larger than l eft. ACT 112: Negative or not required by law. Electronically signed by: Shemar Santos M.D. 12/08/2020 3:14 PM
[2020-12-08] MEDS ORDERED: OPTIRAY 320 150ml IV ONE (17:11)
[2020-12-08] MEDS: cefTRIAXone SODIUM 2,000 MG in DEXTROSE 5% 50 ML IV SCH (18:06)
--- NOTE | 2020-12-08 19:26 | CT Scan Report ---
CHEST CT WITH CONTRAST CT DOSE: 1035.32 mGy.cm HISTORY: Follow up study in a patient with cardiomegaly and pleural effusions b/l effusions; lymphad enopathy on prior CT scan TECHNIQUE: Multiaxial CT images of the chest were performed following the IV administration of 115 cc of Optiray. A dose lowering technique was utilized adhering to the principles of ALARA. COMPARISON: CT chest 09/20/2019 FINDINGS: Unremarkable thyroid. Calcified left hilar lymph nodes. There is decreased size of the prev iously noted mediastinal adenopathy. Index AP window lymph node measures 1.1 cm, previously 1.5 cm. P recarinal 1.0 cm lymph node on image 131 previously measured 1.6 cm. 1.3 cm right hilar lymph node al so appears to have mildly decreased in size. 1.2 cm subcarinal lymph node, previously 1.5 cm. Streak artifact from left subclavian pacer. Moderate cardiac megaly with prior median sternotomy and CABG. Extensive campo coronary artery calcifications. Moderate atherosclerotic plaque of the thoraci c aorta without aneurysm. Patency of the imaged great vessels. The opacified pulmonary artery is unre markable. Moderate right and small left pleural effusions. The right pleural effusion has increased in size fro m comparison. The left pleural effusion is stable to slightly decreased. No pneumothorax. Right great er than left bibasilar and dependent consolidation with groundglass opacities and intralobular septal thickening. There is improved aeration of the lungs compared to prior CT study. Mild scattered groun dglass and micronodular consolidative opacities of the left lung. No pneumoperitoneum. Cholecystectomy. Indeterminate hypodense 8 mm lesion of the posterior right hepa tic lobe. Gynecomastia. Degenerative changes of the spine and shoulders. IMPRESSION: 1. Cardiomegaly with mild pulmonary edema. 2. Moderate right and small left pleural effusions. The right pleural effusion has increased in size from the 09/20/[address] 3. Prominent and mildly enlarged mediastinal and hilar lymph nodes have decreased in size from compar laxmi suggestive of reactive etiology. 4. There is improved aeration of the lungs. Mild left lung predominant groundglass and nodular consol idative opacities are suggestive of an infectious or inflammatory pneumonitis. 5. Right greater than left dependent bibasilar consolidation favors compressive atelectasis. ACT 112: Negative or not required by law. Electronically signed by: Kana Santos M.D. 12/08/2020 7:25 PM
[2020-12-08] MEDS: RIVAROXABAN 15 MG TAB PO SCH (20:35)
[2020-12-08] MEDS: ATORVASTATIN 40 MG TAB PO SCH (20:36)
[2020-12-08] MEDS: MONTELUKAST SODIUM 10 MG TABLET PO SCH (20:37)
[2020-12-08] MEDS: INSULIN GLARGINE 100 UNIT/ML VIAL SC SCH (20:40)
[2020-12-09] MEDS: ASPIRIN 81 MG ECTAB PO SCH (08:41)
[2020-12-09] MEDS: CHOLECALCIFEROL 1,000 UNITS 25 MCG TAB PO SCH (08:42)
[2020-12-09] MEDS: DICLOFENAC SOD 1% GEL 100 GM TUBE EXT SCH ×4 (08:43→20:38)
[2020-12-09] MEDS: DOXYCYCLINE HYCLATE 100 MG CAP PO SCH ×2 (08:44→20:38)
[2020-12-09] MEDS: DULoxetine HCL 60 MG CAP PO SCH (08:46)
[2020-12-09] MEDS: GABAPENTIN 300 MG CAP PO SCH ×2 (08:47→20:36)
[2020-12-09] MEDS: guaiFENesin 600 MG TABCR PO SCH ×2 (08:48→20:37)
[2020-12-09] MEDS: lisinopril 5 MG TAB PO SCH (08:49)
[2020-12-09] MEDS: METOPROLOL SUCC 50MG EXT REL TAB PO SCH (08:50)
[2020-12-09] MEDS: POTASSIUM CHLORIDE CRTAB 20 MEQ TABCR PO SCH ×3 (08:51→20:38)
[2020-12-09] MEDS: PANTOprazole 40 MG TAB PO SCH ×2 (08:51→20:38)
[2020-12-09] MEDS ORDERED: INSULIN GLARGINE 100 UNIT/ML VIAL SC SCH (09:00)
[2020-12-09] MEDS: ACETAMINOPHEN 500 MG TAB PO SCH ×3 (09:01→20:38)
[2020-12-09] MEDS: INSULIN ASPART 100 UNITS/ML 3 ML PEN SC SCH ×4 (09:05→20:39)
[2020-12-09] MEDS: BUMETANIDE 1 MG in SYRINGE 0 ML IV SCH ×2 (09:34→18:19)
[2020-12-09 09:48] LABS: BUN Creatinine Ratio 23.5 (10-20); Calcium 9.5 mg/dl (8.5-10.1); Creatinine Clr Calc Pharmacy 64.3 ml/min; Est GFR (African American) 66.5 ml/min; Est GFR (Non-African American) 57.3 ml/min; Potassium 4.6 mmol/L (3.5-5.1)
--- NOTE | 2020-12-09 14:53 | Pharmacy Report ---
Pharmacy Glycemic Short Note 2 - Date of Service December 09, 2020 - Glycemic Short BSG Results (Last 24 hours): 12/08/20 12/08/20 12/08/20 16:43 17:29 20:11 Glucose POC Glucose 145 H 120 H 120 H 12/09/20 12/09/20 12/09/20 07:30 08:50 11:16 Glucose 180 H POC Glucose 72 119 H OUTPATIENT ANTIDIABETIC REGIMEN: * Lantus 75 units SC BID * Insulin aspart 65 units SC QID + sliding scale * HbA1c: 10.3% (12/06/20) ASSESSMENT: 12/09 * BSGs yesterday of 184, 296, 145, and 120 mg/dL * Received 122 units of insulin (90 units of basal and 32 units of prandial/correctional) * Fasting BSG of 72 mg/dL this morning - will utilize scale this evening and decrease daily dose 12/07 * Pt has received 112 units of insulin over the past 24hrs * 75 units of basal with Lantus * 37 units of bolus with NovoLog * BSGs [id number]/59/84-85-995-78-84 mg/dl * Pt with HYPO last evening at bedtime after receiving 8 units of NovoLog at dinner. Will loosen CF/CR * AM fasting BSG is below goal range this morning at 84mg/dl. Will decrease basal insulin 12/06 * BM is an 79 year old male admitted last evening with two day history of worsening shortness of breath * Per previous glycemic data, patient requires significantly less insulin than outpatient doses would suggest * Patient received 75 units of Lantus prior to admission and an additional 50 units last evening * 75 units given this morning - will utilize Lantus scale this evening PLAN FOR INPATIENT GLYCEMIC CONTROL: * Basal insulin: decrease * Lantus 35 units SC this morning * Lantus scale 25-45 units SC HS (see EHR for details) * Bolus insulin * NovoLog per scale ACHS or Q6hrs while NPO * Goal Range: Low 110 mg/dL - High 140 mg/dL * Correction Factor: 20 mg/dL/unit (15 mg/dL/unit at breakfast) * Nutritional / Prandial insulin per carb ratio of 1 unit per 5 grams CHO consumed (1 unit per 4 grams CHO at breakfast) PLAN FOR DISCHARGE: * HbA1c of 10.3% suggests poor outpatient glycemic control * Inpatient needs are significantly less than outpatient needs * Per senior health educator note, poor A1c and disparity between inpatient/outpatient insulin needs seems to be mostly related to diet * Will continue to follow and make recommendations as appropriate * Ensure prompt outpatient follow-up with hand ii tube bender at time of discharge
--- NOTE | 2020-12-09 15:13 | Heart Failure Progress Note ---
Date of Service December 09, 2020 Assessment & Plan (1) Acute on chronic combined systolic and diastolic congestive heart failure: (2) CAD, multiple vessel: (3) Permanent atrial fibrillation: (4) Cardiomyopathy: (5) Atrial fibrillation: 1. Chronic systolic/diastolic CHF: He appears near euvolemic on exam. Weight is almost to dry weight. He tends to have residual edema- this may be slightly above his baseline today. His pulmonary symptoms are improved. He has no orthopnea. BUN is slightly increased, creatinine stable. He is tolerating Bumex 1 mg IV BID. Can likely convert to PO Bumex tomorrow. Would recommend Bumex 1 mg BID on discharge with Spironolactone. Continue GDMT- Entresto was recommended in the past but denied by his insurance. Lisinopril recommended instead. Jardiance on hold per Sera Kayla. Continue Metoprolol for rate control. Low-sodium diet, less than 2000 mg daily. Daily STANDING weights. Strict I&Os. Encourage supplemental oxygen on discharge. Case management is discussing concentrator with supplier. 2. CAD status post CABG: Has had atypical chest discomfort at his ICD site which has been evaluated by EP in the past. No angina. Continue aspirin, beta elías, statin therapy. 3. Hypokalemia: Recently hyperkalemic- Spironolactone and potassium recently held as outpatient. Spironolactone resumed 12/02/20 but not currently getting now. Ok to resume with close monitoring. 4. Hypertension: Stable. Continue current medical regimen. 5. Dyslipidemia: Continue high-intensity statin therapy. LDL is well controlled. 6. Atrial fibrillation: Permanent atrial fibrillation. Continue rate control strategy. Asymptomatic in this regard. Continue anticoagulation for stroke risk reduction. Monitor CBC and renal function periodically. 7. Cardiomyopathy: LV systolic function was noted to be more reduced on 09/23/2019 echo that he preferred to avoid invasive evaluation and continue forward with medical therapy only. He had stated that he is 79 years old and he is "ready to go. Continue metoprolol succinate. Entresto was initiated in the past but denied by insurance. Medication was stopped due to high out of pocket cost. Lisinopril recommended instead, 5 mg. Can continue to titrate as outpatient. Resume Spironolactone. He has an ICD. QRS is borderline, could consider upgrade to bi-ventricular device if he's willing to consider. 8: ICD: Remote transmission from 11/16/20, no VF/VT. Disposition: Will continue to follow during hospitalization. ANticipate close outpatient follow up with the heart failure program. Scheduled 12/16/20 at 2:00pm. Family prefers SNF on discharge. Admission and Anticipated Discharge Date Admission Date: December 05, 2020 Subjective Patient reports he's feeling well. He's laying completely flat in bed, denies SOB. He continues to wear supplemental O2. He continues to have lower extremity edema which is somewhat chronic. He's net negative 12.8 L and weight is 256 lb today on the standing scale. Dry weight at home is typically [address] scan yesterday demonstrates BL pleural effusions, resolving pulmonary edema. Physical Exam Physical Exam: Gen.: No acute distress. Alert. Supplemental O2. HEENT: Anicteric sclera. Mucus membranes moist. Neck: Thick neck. No appreciable JVD or hepatic jugular reflux. Cardiac: PMI was nonpalpable. No ventricular heave. Irregularly irregular. Normal rate. Normal S1-S2. 1/6 early peaking FELIX at RUSB. No rubs or gallops. Pulmonary: Decreased breath sounds bilaterally, decreased breath sounds at the right base, otherwise clear to auscultation. Abdomen: Obese. Soft, nontender, nondistended, with normoactive bowel sounds. No bruits noted. Extremities: Very weak right radial pulse. 2+ left radial pulse. Weak distal lower extremity pulses. 2+ right lower extremity edema at the ankle. 1-2+ left lower extremity edema at the ankle. No cyanosis. Psychiatric: Affect appears appropriate. Results & Data ([facility]) Vital Signs (Past 12 Hours) Vital Signs Temp Pulse Pulse Pulse Resp BP Pulse Ox 12/09/20 14:50 97.3 F L 85 20 110/62 91 12/09/20 11:28 98.1 F 85 14 133/72 12/09/20 10:29 96 12/09/20 10:00 18 93 12/09/20 08:00 95 H 12/09/20 07:54 97.7 F 12/09/20 07:29 94.5 F L 87 14 108/68 94 12/09/20 04:09 97.3 F L 79 20 155/73 H 90 PG Care Time/CCT Total # of Minutes Spent Total Time Spent with Patient: Total time spent is greater than 50% in coordination of care (as documented) at patient's floor/unit and/or counseling patient: Heart Failure Data/Metrics Heart Failure Type: Combined Systolic Diastolic Coding Level of Care Code 91143 Subseq Hosp Care Lvl 3 Diagnoses Acute on chronic combined systolic and diastolic congestive heart failure I50.43 CAD, multiple vessel I25.10 Permanent atrial fibrillation I48.2 Cardiomyopathy I42.9 Atrial fibrillation I48.91 Atrial fibrillation type: unspecified (1) Atrial fibrillation Atrial fibrillation type: unspecified Qualified Code(s): I48.91 - Unspecified atrial fibrillation
[2020-12-09] MEDS ORDERED: BUMETANIDE 1 MG in SYRINGE 0 ML IV ONE (17:30)
[2020-12-09] MEDS: MONTELUKAST SODIUM 10 MG TABLET PO SCH (20:37)
[2020-12-09] MEDS: ATORVASTATIN 40 MG TAB PO SCH (20:37)
[2020-12-09] MEDS: RIVAROXABAN 15 MG TAB PO SCH (20:37)
--- NOTE | 2020-12-09 21:06 | Hospitalist Progress Note ---
Date of Service December 09, 2020 Assessment & Plan (1) Acute on chronic respiratory failure with hypoxia: 2nd decompensated CHF as well as left-sided pneumonia. acute components continue to improve. patient is supposed to be on continuous NC O2 at home but often does not wear it. (2) Acute on chronic combined systolic and diastolic congestive heart failure: try 2mg IV BID of bumex in jamari of 1mg each dose to enhance diuresis. BUN and Cr stable. daily standing weights. cont BB. cont CORDELIA. cont K supplementation. could not afford entresto by report. appreciate CHF clinic consultation by Ms Gresham. (3) Pleural effusion: chest CT with b/l effusions, much worse on right. lymphadenopathy in comparison to 2020 CT is MUCH better. pulm edema present on CT chest. the right-sided effusion - if it persists despite aggressive diuresis - consider thoracentesis suspect the effusion is transudative, but given the unilateral nature and heavy tobacco use history, cannot rule out exudative effusion (4) Pneumonia: community-acquired. left-sided as seen on yesterday's CT. IMPROVING. day #4 of rocephin and doxy for typical/atypical coverage. blood cx's negative. will stop rocephin today. continue doxy 3 more days then stop all abx. COVID negative at admission. And, patient had COVID vaccine. (5) Elevated troponin: likely myocardial demand ischemia in setting of above issues. (6) Diabetes: appreciate pharmacy management cont lantus cont novolog DM diet labile BSGs have improved (7) Ventricular tachycardia: history of has AICD in place telemetry with stable a.fib no VT this admission (8) CAD, multiple vessel: with resulting cardiomyopathy cont BB cont CORDELIA cont asa cont statin (9) Enlarged prostate without lower urinary tract symptoms (luts): no issues at this time voiding well (10) Hypertension: cont usual home meds controlled (11) Dyslipidemia: statin LDL of 61 in 05/2020 (12) Presence of single chamber implantable cardioverter-defibrillator (ICD): noted (13) PAD (peripheral artery disease): noted no symptoms at this time RLE size is much larger than LLE - states it is chronic is on xarelto so chances of RLE having DVT are low (14) Chronic kidney disease, stage III (moderate): daily BMP while on diuretics Cr remains stable despite aggressive diuresis (15) Permanent atrial fibrillation: rates controlled with BB cont xarelto (16) Lumbar stenosis with neurogenic claudication: chronic. pain improved with voltaren gel qid and scheduled tylenol 1gm TID. (17) DVT prophylaxis: xarelto cont PT/OT grand-daughter updated at the hospital today, as well as his by phone Admission and Anticipated Discharge Date Admission Date: December 05, 2020 Subjective patient was sleeping upon entering room he reports "feeling well" and is anxious to get out of the hospital apparently he worked with PT and his O2 sats dropped prompting resumption of the NC O2 denies any dyspnea or orthopnea no further cough or hemoptysis eating well energy is good tele overnight - rate-controlled a.fib Review of Systems Constitutional: no fever, no chills, no fatigue, no weakness and no anorexia Respiratory: no cough, no chest congestion, no dyspnea, no hemoptysis, no sputum production and no wheezing Cardiovascular: no chest pain Gastrointestinal: no abdominal pain, no nausea and no vomiting Physical Exam Constitutional: + obese; no acute distress and no altered mental status ENMT: external ear and nose normal, oropharynx normal Respiratory: no respiratory distress Auscultation: + diminished lung sounds (Right base) and + crackles (bases, but improved today ); no wheezes Cardiovascular: Rate/Rhythm: regular rate and + irregularly irregular Heart Sounds: normal S1, normal S2 and + murmur (2/6 LLSB, systolic) Vessels: + JVD (minimal ), posterior tibial pulses present and dorsalis pedis pulses present Extremities: + edema (2+ RLE, <1+ LLE; right leg much larger in bulk than left leg - chronic) Gastrointestinal (Abdomen): normal bowel sounds, soft, nontender, no hepatosplenomegaly Psychiatric: A+Ox3, euthymic affect Results & Data Results & Data ([facility]) Vital Signs (Past 12 Hours) Vital Signs Temp Pulse Pulse Resp BP Pulse Ox 12/09/20 18:25 36.8 C 72 20 137/63 93 12/09/20 16:34 99 H 12/09/20 14:50 36.3 C L 85 20 110/62 91 12/09/20 11:28 36.7 C 85 14 133/72 12/09/20 10:29 96 12/09/20 10:00 18 93 Laboratory Results Laboratory Results - last 24 hr 12/09/20 12/09/20 12/09/20 07:30 08:50 11:16 Sodium 136 Potassium 4.6 D Chloride 98 Carbon Dioxide 34 H Anion Gap 4.0 BUN 28 H Creatinine 1.19 Est Cr Clr Drug Dosing 64.3 Est GFR ( Amer) 66.5 Est GFR (Non-Af Amer) 57.3 BUN/Creatinine Ratio 23.5 H Glucose 180 H POC Glucose 72 119 H Calcium 9.5 Magnesium 2.0 12/09/20 12/09/20 16:23 20:28 Sodium Potassium Chloride Carbon Dioxide Anion Gap BUN Creatinine Est Cr Clr Drug Dosing Est GFR ( Amer) Est GFR (Non-Af Amer) BUN/Creatinine Ratio Glucose POC Glucose 71 100 H Calcium Magnesium PG Care Time/CCT Total # of Minutes Spent Total Time Spent with Patient: Total time spent is greater than 50% in coordination of care (as documented) at patient's floor/unit and/or counseling patient: Coding Level of Care Code 94585 Subseq Hosp Care Lvl 3 Diagnoses Acute on chronic respiratory failure with hypoxia J96.21 Acute on chronic combined systolic and diastolic congestive heart failure I50.43 Pleural effusion J90 Pneumonia J18.9 Laterality: unspecified laterality Lung location: unspecified part of lung Pneumonia type: due to unspecified organism Elevated troponin R77.8 Diabetes E11.9 Ventricular tachycardia I47.2 CAD, multiple vessel I25.10 Enlarged prostate without lower urinary tract symptoms (luts) N40.0 Hypertension I10 Hypertension type: essential hypertension Dyslipidemia E78.5 Presence of single chamber implantable cardioverter-defibrillator (ICD) Z95.810 PAD (peripheral artery disease) I73.9 Chronic kidney disease, stage III (moderate) N18.3 Permanent atrial fibrillation I48.2 Lumbar stenosis with neurogenic claudication M48.062 DVT prophylaxis Z29.9 (1) Hypertension Hypertension type: essential hypertension Qualified Code(s): I10 - Essential (primary) hypertension (2) Pneumonia Laterality: unspecified laterality Lung location: unspecified part of lung Pneumonia type: due to unspecified organism Qualified Code(s): J18.9 - Pneumonia, unspecified organism
[2020-12-10 06:41] LABS: BUN Creatinine Ratio 23.3 (10-20); Calcium 9.8 mg/dl (8.5-10.1); Creatinine Clr Calc Pharmacy 62.2 ml/min; Est GFR (African American) 63.9 ml/min; Est GFR (Non-African American) 55.1 ml/min
[2020-12-10] MEDS: ACETAMINOPHEN 500 MG TAB PO SCH ×3 (07:25→21:15)
[2020-12-10] MEDS: BUMETANIDE 2 MG in SYRINGE 0 ML IV SCH ×2 (07:29→16:27)
[2020-12-10] MEDS: GABAPENTIN 300 MG CAP PO SCH ×2 (07:29→21:15)
[2020-12-10] MEDS: POTASSIUM CHLORIDE CRTAB 20 MEQ TABCR PO SCH (07:29)
[2020-12-10] MEDS: PANTOprazole 40 MG TAB PO SCH ×2 (07:30→21:13)
[2020-12-10] MEDS: METOPROLOL SUCC 50MG EXT REL TAB PO SCH (07:30)
[2020-12-10] MEDS: lisinopril 5 MG TAB PO SCH (07:30)
[2020-12-10] MEDS: ASPIRIN 81 MG ECTAB PO SCH (07:30)
[2020-12-10] MEDS: DULoxetine HCL 60 MG CAP PO SCH (07:30)
[2020-12-10] MEDS: DOXYCYCLINE HYCLATE 100 MG CAP PO SCH ×2 (07:30→21:14)
[2020-12-10] MEDS: CHOLECALCIFEROL 1,000 UNITS 25 MCG TAB PO SCH (07:30)
[2020-12-10] MEDS: guaiFENesin 600 MG TABCR PO SCH ×2 (07:30→21:13)
[2020-12-10] MEDS: DICLOFENAC SOD 1% GEL 100 GM TUBE EXT SCH ×4 (07:31→21:15)
[2020-12-10] MEDS: INSULIN ASPART 100 UNITS/ML 3 ML PEN SC SCH ×4 (08:09→21:16)
[2020-12-10] MEDS: INSULIN GLARGINE 100 UNIT/ML VIAL SC SCH ×2 (08:09→21:15)
[2020-12-10] MEDS ORDERED: SPIRONOLACTONE 25 MG TAB PO ONE (11:15)
--- NOTE | 2020-12-10 11:18 | Pharmacy Report ---
Pharmacy Glycemic Short Note 2 - Date of Service December 10, 2020 - Glycemic Short BSG Results (Last 24 hours): 12/09/20 12/09/20 12/09/20 11:16 16:23 20:28 Glucose POC Glucose 119 H 71 100 H 12/10/20 12/10/20 05:36 07:33 Glucose 125 H POC Glucose 134 H OUTPATIENT ANTIDIABETIC REGIMEN: * Lantus 75 units SC BID * Insulin aspart 65 units SC QID + sliding scale * HbA1c: 10.3% (12/06/20) ASSESSMENT: 12/10 * Pt has received 62 units of insulin over the past 24hrs * 35 units of basal with Lantus * 27 units of bolus with NovoLog * BSGs 17-011-67-100-134 mg/dl * Basal insulin requirements fluctuating greatly on a day to day basis - patient will receive large doses one day (75-90 units) and then only require about 50% of that amount the following day. Median basal insulin dose ~ 70 units. Will s plit BID and adjust based on BSG trends. Will try to prevent large doses followed by small doses to even out dosing and maintain adequate steady state. * Will slightly tighten CF/CR insulin today since patient is most likely basal deficient today from only receiving 35 units of Lantus yesterday. 12/09 * BSGs yesterday of 184, 296, 145, and 120 mg/dL * Received 122 units of insulin (90 units of basal and 32 units of prandial/correctional) * Fasting BSG of 72 mg/dL this morning - will utilize scale this evening and decrease daily dose 12/07 * Pt has received 112 units of insulin over the past 24hrs * 75 units of basal with Lantus * 37 units of bolus with NovoLog * BSGs [id number]/59/06-44-388-78-84 mg/dl * Pt with HYPO last evening at bedtime after receiving 8 units of NovoLog at dinner. Will loosen CF/CR * AM fasting BSG is below goal range this morning at 84mg/dl. Will decrease basal insulin 12/06 * BM is an 79 year old male admitted last evening with two day history of worsening shortness of breath * Per previous glycemic data, patient requires significantly less insulin than outpatient doses would suggest * Patient received 75 units of Lantus prior to admission and an additional 50 units last evening * 75 units given this morning - will utilize Lantus scale this evening PLAN FOR INPATIENT GLYCEMIC CONTROL: * Basal insulin: * Lantus 35 units SQ BID * Bolus insulin * NovoLog per scale ACHS or Q6hrs while NPO * Goal Range: Low 110 mg/dL - High 140 mg/dL * Correction Factor: 20 mg/dL/unit (15 mg/dL/unit at breakfast) * Nutritional / Prandial insulin per carb ratio of 1 unit per 6 grams CHO consumed (1 unit per 4 grams CHO at breakfast) PLAN FOR DISCHARGE: * HbA1c of 10.3% suggests poor outpatient glycemic control * Inpatient needs are significantly less than outpatient needs * Per health educator note, poor A1c and disparity between inpatient/outpatient insulin needs seems to be mostly related to diet * Will continue to follow and make recommendations as appropriate * Ensure prompt outpatient follow-up with employee benefits manager at time of discharge
--- NOTE | 2020-12-10 16:35 | Heart Failure Progress Note ---
Date of Service December 10, 2020 Assessment & Plan (1) Acute on chronic combined systolic and diastolic congestive heart failure: (2) CAD, multiple vessel: (3) Permanent atrial fibrillation: (4) Cardiomyopathy: (5) Atrial fibrillation: 1. Chronic systolic/diastolic CHF: He appears near euvolemic on exam. Weight is trending down nicely, now below dry weight. Suspect I&Os inaccurate. He tends to have residual edema- this may be slightly above his baseline today. His pulmonary symptoms are improved. He has no orthopnea. BUN is slightly increased, creatinine stable. Bumex increased to 2 mg IV BID. Can likely convert to PO Bumex tomorrow. Spironolactone ordered to restart tomorrow. Would recommend Bumex 1 mg BID on discharge with Spironolactone. Continue GDMT- Entresto was recommended in the past but denied by his insurance. Lisinopril recommended instead. Jardiance on hold per Sera Kayla. Continue Metoprolol for rate control. Low-sodium diet, less than 2000 mg daily. Daily STANDING weights. Strict I&Os. Encourage supplemental oxygen on discharge. Case management is discussing concentrator with supplier. 2. CAD status post CABG: Has had atypical chest discomfort at his ICD site which has been evaluated by EP in the past. No angina. Continue aspirin, beta elías, statin therapy. 3. Hypokalemia: Recently hyperkalemic- Spironolactone and potassium recently held as outpatient. Spironolactone to resume 6/4 am. 4. Hypertension: Stable. Continue current medical regimen. 5. Dyslipidemia: Continue high-intensity statin therapy. LDL is well controlled. 6. Atrial fibrillation: Permanent atrial fibrillation. Continue rate control strategy. Asymptomatic in this regard. Continue anticoagulation for stroke risk reduction. Monitor CBC and renal function periodically. 7. Cardiomyopathy: LV systolic function was noted to be more reduced on 09/23/2019 echo that he preferred to avoid invasive evaluation and continue forward with medical therapy only. He had stated that he is 79 years old and he is "ready to go. Continue metoprolol succinate. Entresto was initiated in the past but denied by insurance. Medication was stopped due to high out of pocket cost. Lisinopril recommended instead, 5 mg. Can continue to titrate as outpatient. Resume Spironolactone. He has an ICD. QRS is borderline, could consider upgrade to bi-ventricular device if he's willing to consider. 8: ICD: Remote transmission from 11/16/20, no VF/VT. Disposition: Will continue to follow during hospitalization. ANticipate close outpatient follow up with the heart failure program. Scheduled 12/16/20 at 2:00pm. Family prefers SNF on discharge. Admission and Anticipated Discharge Date Admission Date: December 05, 2020 Subjective Patient reports he's feeling well. He's anxious to go home. He's laying completely flat in bed, denies SOB. He continues to wear supplemental O2. He continues to have lower extremity edema which is somewhat chronic. He's net n egative 2.8 L and weight is 248 lb today on the standing scale. Dry weight at home is typically [address] scan demonstrates BL pleural effusions, resolving pulmonary edema. Physical Exam Physical Exam: Gen.: No acute distress. Alert. Supplemental O2. HEENT: Anicteric sclera. Mucus membranes moist. Neck: Thick neck. No appreciable JVD or hepatic jugular reflux. Cardiac: PMI was nonpalpable. No ventricular heave. Irregularly irregular. Normal rate. Normal S1-S2. 1/6 early peaking FELIX at RUSB. No rubs or gallops. Pulmonary: Decreased breath sounds bilaterally, decreased breath sounds at the right base, otherwise clear to auscultation. Abdomen: Obese. Soft, nontender, nondistended, with normoactive bowel sounds. No bruits noted. Extremities: Very weak right radial pulse. 2+ left radial pulse. Weak distal lower extremity pulses. 2+ right lower extremity edema at the ankle. 1-2+ left lower extremity edema at the ankle. No cyanosis. Psychiatric: Affect appears appropriate. Results & Data ([facility]) Vital Signs (Past 12 Hours) Vital Signs Temp Pulse Resp BP Pulse Ox 12/10/20 15:31 97.3 F L 85 20 148/74 H 94 12/10/20 11:18 97.7 F 86 20 117/77 12/10/20 06:43 98.2 F 67 20 137/80 93 PG Care Time/CCT Total # of Minutes Spent Total Time Spent with Patient: Total time spent is greater than 50% in coordination of care (as documented) at patient's floor/unit and/or counseling patient: Heart Failure Data/Metrics Heart Failure Type: Combined Systolic Diastolic Coding Level of Care Code 13966 Subseq Hosp Care Lvl 3 Diagnoses Acute on chronic combined systolic and diastolic congestive heart failure I50.43 CAD, multiple vessel I25.10 Permanent atrial fibrillation I48.2 Cardiomyopathy I42.9 Atrial fibrillation I48.91 Atrial fibrillation type: unspecified (1) Atrial fibrillation Atrial fibrillation type: unspecified Qualified Code(s): I48.91 - Unspecified atrial fibrillation
[2020-12-10] MEDS: MONTELUKAST SODIUM 10 MG TABLET PO SCH (21:13)
[2020-12-10] MEDS: ATORVASTATIN 40 MG TAB PO SCH (21:14)
[2020-12-10] MEDS: RIVAROXABAN 15 MG TAB PO SCH (21:15)
--- NOTE | 2020-12-10 22:50 | Hospitalist Progress Note ---
Date of Service December 10, 2020 Assessment & Plan (1) Acute on chronic respiratory failure with hypoxia: acute components 2nd decompensated CHF as well as left-sided pneumonia. IMPROVED. chronic -- patient is supposed to be on continuous NC O2 at home but often does not wear it. will get 2-step tomorrow before discharge. (2) Acute on chronic combined systolic and diastolic congestive heart failure: larger bumex dose of 2mg has been more effective with his diuresis. continue such. weights decreasing. exam improving. add back his aldactone. BUN and Cr stable. daily standing weights. cont BB. cont CORDELIA. cont K supplementation. could not afford entresto by report. appreciate CHF clinic consultation by Ms Gresham. (3) Pleural effusion: chest CT with b/l effusions, much worse on right. lymphadenopathy in comparison to 2020 CT is MUCH better. pulm edema present on CT chest. the right-sided effusion - if it persists despite aggressive diuresis - consider thoracentesis suspect the effusion is transudative, but given the unilateral nature and heavy tobacco use history, cannot rule out exudative effusion (4) Pneumonia: community-acquired. left-sided as seen on yesterday's CT. IMPROVING. day #5 of abx today. cont 2 more days of doxy then d/c. blood cx's negative. COVID negative at admission. And, patient had COVID vaccine. (5) Elevated troponin: likely myocardial demand ischemia in setting of above issues. (6) Diabetes: appreciate pharmacy management cont lantus cont novolog DM diet labile BSGs have improved (7) Ventricular tachycardia: history of has AICD in place telemetry again with stable a.fib no NSVT this admission (8) CAD, multiple vessel: with resulting cardiomyopathy cont BB cont CORDELIA cont asa cont statin (9) Enlarged prostate without lower urinary tract symptoms (luts): no issues at this time voiding well (10) Hypertension: cont usual home meds controlled (11) Dyslipidemia: statin LDL of 61 in 05/2020 (12) Presence of single chamber implantable cardioverter-defibrillator (ICD): noted (13) PAD (peripheral artery disease): noted no symptoms at this time RLE size is much larger than LLE - states it is chronic is on xarelto so chances of RLE having DVT are low (14) Chronic kidney disease, stage III (moderate): daily BMP while on diuretics Cr remains stable despite aggressive diuresis (15) Permanent atrial fibrillation: rates controlled with BB cont xarelto (16) Lumbar stenosis with neurogenic claudication: chronic. cont voltaren gel qid and scheduled tylenol 1gm TID. was scheduled to get epidural shot recently but canceled due to his illness. declines heating pad. declines pain meds today. (17) DVT prophylaxis: xarelto cont PT/OT suspect he can go home tomorrow Admission and Anticipated Discharge Date Admission Date: December 05, 2020 Subjective pt with c/o back pain however, declines heating pad or any pain meds, stating "none of that works" denies any pulmonary symptoms today he is anxious for discharge eating well no further hemoptysis Review of Systems Constitutional: no fever, no chills, no fatigue and no anorexia Respiratory: + dyspnea on exertion Cardiovascular: + edema (RLE>LLE - chronic ); no dyspnea at rest and no orthopnea Gastrointestinal: no abdominal pain, no nausea, no vomiting, no constipation and no diarrhea/loose stools Physical Exam Constitutional: + obese; no acute distress and no altered mental status ENMT: external ear and nose normal, oropharynx normal Respiratory: no respiratory distress Auscultation: + diminished lung sounds (Right base - improved ) and + crackles (bases, but improved again today ); no wheezes Cardiovascular: Rate/Rhythm: regular rate and + irregularly irregular Heart Sounds: normal S1, normal S2 and + murmur (2/6 LLSB, systolic) Vessels: posterior tibial pulses present and dorsalis pedis pulses present; no JVD Extremities: + edema (1+ RLE, <1+ LLE; right leg much larger in bulk than left leg - chronic) Gastrointestinal (Abdomen): normal bowel sounds, soft, nontender, no h epatosplenomegaly Musculoskeletal: Spine: + lumbar spinal tenderness and + paraspinal tenderness Psychiatric: A+Ox3, euthymic affect Results & Data Results & Data ([facility]) Vital Signs (Past 12 Hours) Vital Signs Temp Pulse Pulse Resp BP Pulse Ox 12/10/20 19:55 36.7 C 87 20 117/79 94 12/10/20 15:31 36.3 C L 85 20 148/74 H 94 12/10/20 11:18 36.5 C 86 20 117/77 Laboratory Results Laboratory Results - last 24 hr 12/10/20 12/10/20 12/10/20 05:36 07:33 11:30 Sodium 138 Potassium 4.0 Chloride 99 Carbon Dioxide 36 H Anion Gap 4.0 BUN 29 H Creatinine 1.23 Est Cr Clr Drug Dosing 62.2 Est GFR ( Amer) 63.9 Est GFR (Non-Af Amer) 55.1 BUN/Creatinine Ratio 23.3 H Glucose 125 H POC Glucose 134 H 176 H Calcium 9.8 12/10/20 12/10/20 16:39 20:20 Sodium Potassium Chloride Carbon Dioxide Anion Gap BUN Creatinine Est Cr Clr Drug Dosing Est GFR ( Amer) Est GFR (Non-Af Amer) BUN/Creatinine Ratio Glucose POC Glucose 139 H 133 H Calcium PG Care Time/CCT Total # of Minutes Spent Total Time Spent with Patient: Total time spent is greater than 50% in coor dination of care (as documented) at patient's floor/unit and/or counseling patient: Coding Level of Care Code 30482 Subseq Hosp Care Lvl 2 Diagnoses Acute on chronic respiratory failure with hypoxia J96.21 Acute on chronic combined systolic and diastolic congestive heart failure I50.43 Pleural effusion J90 Pneumonia J18.9 Laterality: unspecified laterality Lung location: unspecified part of lung Pneumonia type: due to unspecified organism Elevated troponin R77.8 Diabetes E11.9 Ventricular tachycardia I47.2 CAD, multiple vessel I25.10 Enlarged prostate without lower urinary tract symptoms (luts) N40.0 Hypertension I10 Hypertension type: essential hypertension Dyslipidemia E78.5 Presence of single chamber implantable cardioverter-defibrillator (ICD) Z95.810 PAD (peripheral artery disease) I73.9 Chronic kidney disease, stage III (moderate) N18.3 Permanent atrial fibrillation I48.2 Lumbar stenosis with neurogenic claudication M48.062 DVT prophylaxis Z29.9 (1) Hypertension Hypertension type: essential hypertension Qualified Code(s): I10 - Essential (primary) hypertension (2) Pneumonia Laterality: unspecified laterality Lung location: unspecified part of lung Pneumonia type: due to unspecified organism Qualified Code(s): J18.9 - Pneumonia, unspecified organism
[2020-12-11] MEDS: GABAPENTIN 300 MG CAP PO SCH (07:39)
[2020-12-11] MEDS: ASPIRIN 81 MG ECTAB PO SCH (07:40)
[2020-12-11] MEDS: DULoxetine HCL 60 MG CAP PO SCH (07:40)
[2020-12-11] MEDS: METOPROLOL SUCC 50MG EXT REL TAB PO SCH (07:40)
[2020-12-11] MEDS: ACETAMINOPHEN 500 MG TAB PO SCH (07:40)
[2020-12-11] MEDS: PANTOprazole 40 MG TAB PO SCH (07:40)
[2020-12-11] MEDS: CHOLECALCIFEROL 1,000 UNITS 25 MCG TAB PO SCH (07:40)
[2020-12-11] MEDS: lisinopril 5 MG TAB PO SCH (07:40)
[2020-12-11] MEDS: DOXYCYCLINE HYCLATE 100 MG CAP PO SCH (07:41)
[2020-12-11] MEDS: guaiFENesin 600 MG TABCR PO SCH (07:41)
[2020-12-11] MEDS: DICLOFENAC SOD 1% GEL 100 GM TUBE EXT SCH ×2 (07:41→12:23)
[2020-12-11 07:43] LABS: Hemoglobin 14.6 g/dL (14.0-18.0); Mean Corpuscular Hemoglobin 31.9 pg (25-34); Mean Corpuscular Hgb Conc 32.4 g/dL (32-36); Mean Corpuscular Volume 98.3 fL (80-100); Mean Platelet Volume 10.6 fL (7.4-10.4); Platelet Count 327 K/uL (130-400); RDW Coefficient of Variation 14.2 % (11.5-14.5); RDW Standard Deviation 50.9 fL (36.4-46.3); Red Blood Count 4.58 M/uL (4.7-6.1); White Blood Count 9.63 K/uL (4.8-10.8)
[2020-12-11 08:12] LABS: BUN Creatinine Ratio 24.4 (10-20); Calcium 9.9 mg/dl (8.5-10.1); Creatinine Clr Calc Pharmacy 56.1 ml/min; Est GFR (African American) 58.1 ml/min; Est GFR (Non-African American) 50.1 ml/min
[2020-12-11] MEDS: BUMETANIDE 2 MG in SYRINGE 0 ML IV SCH (08:38)
[2020-12-11] MEDS: INSULIN GLARGINE 100 UNIT/ML VIAL SC SCH (08:38)
[2020-12-11] MEDS: INSULIN ASPART 100 UNITS/ML 3 ML PEN SC SCH ×2 (08:39→12:24)
[2020-12-11] MEDS ORDERED: SPIRONOLACTONE 25 MG TAB PO SCH (09:00)
[2020-12-11] MEDS ORDERED: POTASSIUM CHLORIDE CRTAB 20 MEQ TABCR PO SCH (09:00)
--- NOTE | 2020-12-11 09:44 | Pharmacy Report ---
Pharmacy Glycemic Short Note 2 - Date of Service December 11, 2020 - Glycemic Short BSG Results (Last 24 hours): 12/10/20 12/10/20 12/10/20 11:30 16:39 20:20 Glucose POC Glucose 176 H 139 H 133 H 12/11/20 12/11/20 07:09 07:33 Glucose 143 H POC Glucose 145 H OUTPATIENT ANTIDIABETIC REGIMEN: * Lantus 75 units SC BID * Insulin aspart 65 units SC QID + sliding scale * HbA1c: 10.3% (12/06/20) ASSESSMENT: 12/11 * Pt has received 94 units of insulin over the past 24hrs * 70 units of basal with Lantus * 24 units of bolus with NovoLog * BSGs [phone] mg/dl * AM fasting BSG is near goal range at 145 mg/dl based on age/co-morbidities. No changes needed to basal insulin * Pre-lunch BSG tends to be the highest BSG of the day - will tighten CR at breakfast only. 12/10 * Pt has received 62 units of insulin over the past 24hrs * 35 units of basal with Lantus * 27 units of bolus with NovoLog * BSGs 59-116-00-100-134 mg/dl * Basal insulin requirements fluctuating greatly on a day to day basis - patient will receive large doses one day (75-90 units) and then only require about 50% of that amount the following day. Median basal insulin dose ~ 70 units. Will split BID and adjust based on BSG trends. Will try to prevent large doses followed by small doses to even out dosing and maintain adequate steady state. * Will slightly tighten CF/CR insulin today since patient is most likely basal deficient today from only receiving 35 units of Lantus yesterday. 12/09 * BSGs yesterday of 184, 296, 145, and 120 mg/dL * Received 122 units of insulin (90 units of basal and 32 units of prandial/correctional) * Fasting BSG of 72 mg/dL this morning - will utilize scale this evening and decrease daily dose 12/07 * Pt has received 112 units of insulin over the past 24hrs * 75 units of basal with Lantus * 37 units of bolus with NovoLog * BSGs 147-199-530-128-65/59/90-61-387-78-84 mg/dl * Pt with HYPO last evening at bedtime after receiving 8 units of NovoLog at dinner. Will loosen CF/CR * AM fasting BSG is below goal range this morning at 84mg/dl. Will decrease basal insulin 12/06 * BM is an 79 year old male admitted last evening with two day history of worsening shortness of breath * Per previous glycemic data, patient requires significantly less insulin than outpatient doses would suggest * Patient received 75 units of Lantus prior to admission and an additional 50 units last evening * 75 units given this morning - will utilize Lantus scale this evening PLAN FOR INPATIENT GLYCEMIC CONTROL: * Basal insulin: * Lantus 35 units SQ BID * Bolus insulin * NovoLog per scale ACHS or Q6hrs while NPO * Goal Range: Low 110 mg/dL - High 140 mg/dL * Correction Factor: 20 mg/dL/unit (15 mg/dL/unit at breakfast) * Nutritional / Prandial insulin per carb ratio of 1 unit per 6 grams CHO consumed (1 unit per 3 grams CHO at breakfast) PLAN FOR DISCHARGE: * HbA1c of 10.3% suggests poor outpatient glycemic control * Inpatient needs are significantly less than outpatient needs * Per telehealth nurse educator note, poor A1c and disparity between inpatient/outpatient insulin needs seems to be mostly related to diet * Will continue to follow and make recommendations as appropriate * Ensure prompt outpatient follow-up with workers compensation manager at time of discharge
--- NOTE | 2020-12-11 14:36 | Discharge Summary ---
Date of Service date of admission - December 05, 2020 date of discharge - December 11, 2020 Admission HPI Per Admitting Provider Patient is an complex medical 79 year old male with PMHx HFrEF, DM2, Anxiety, Atrial Fibrillation, V Tach s/p ICD placement, CKD III, CAD, GERD, Hx TBI, HLD, HTN, PAD, Sleep apnea not on CPAP, Hyperglobulinemia, that presents for what he notes is a 2 day history of worsening shortness of breath, though upon discussion with his daughter who is also present in the room has actually had 2 week history of shortness of breath. Patient appears to be somewhat of a poor historian in addition to wanting to go home rather than be admitted. On arrival patient was found to be hypoxic with saturations in the mid 70's and he was immediately placed on Oxymask 10L which has now been transitioned to CPAP. He notes that he chronically uses 2L NC at home for oxygen. He notes that he takes his medications as prescribed, though notes he has not been taking his metoprolol. Upon review of his most recent [facility] Failure Clinic visit on 12/02/20 he was to continue his metoprolol for rate control. He does deny any recent fever, chills, chest pain, chest pressure. He notes that he occasionally will cough up "blood," but is unsure if it is coming from his lungs or from his stomach. He has not noted any dark or tarry stools, but has chronic yellow- colored diarrhea. He states that currently while on CPAP he is comfortable in regards to his breathing. PMHx: HFrEF, DM2, Anxiety, Atrial Fibrillation, V Tach s/p ICD placement, CKD III, CAD, GERD, Hx TBI, HLD, HTN, PAD, Sleep apnea not on CPAP, Hyperglobulinemia Surg Hx: Cataract surgery, L knee replacement, s/p ICD placement, CABG x3, Atrial Flutter ablation, RCA PCI x5 stents to prox and mid RCA Soc Hx: Quit smoking 1989, No alcohol or illicit drug use. Principal Diagnosis 1. acute on chronic systolic & diastolic CHF 2. left-sided pneumonia Discharge Exam Constitutional + obese; no acute distress and no altered mental status ENMT external ear and nose normal, oropharynx normal Respiratory no respiratory distress Auscultation: + diminished lung sounds (Right base - improved ) and + crackles (Minimal bases ); no wheezes Cardiovascular Rate/Rhythm: regular rate and + irregularly irregular Heart Sounds: normal S1, normal S2 and + murmur (2/6 LLSB, systolic) Vessels: posterior tibial pulses present and dorsalis pedis pulses present; no JVD Extremities: + edema (1+ RLE, <1+ LLE; right leg much larger in bulk than left leg - chronic) Gastrointestinal (Abdomen) normal bowel sounds, soft, nontender, no hepatosplenomegaly Psychiatric A+Ox3, euthymic affect Discharge Data Allergies Allergy/AdvReac Type Severity Reaction Status Date / Time No Known Drug Allergies Allergy Unknown NKDA Verified 12/16/20 14:14 [place]ations [facility] [facility] Ordered Studies Chest X-Ray 12/05/20 20:59 XR chest 1V portable CLINICAL HISTORY: Dyspnea COMPARISON STUDY: Chest radiograph and chest CT September 20, 2019. FINDINGS: A left subclavian pacer/AICD is in place. There are median sternotomy wires. Cardiomegaly is unchanged. No pneumothorax is present. Interstitial thickening is noted with bilateral opacities, greatest within the right lower lobe. There is evidence for right lower lobe volume loss. Small to moderate right pleural effusion is suspected. IMPRESSION: 1. Interstitial thickening consistent with pulmonary edema. 2. Bilateral airspace opacities, greatest within the right lower lobe. This may reflect superimposed pneumonia or alveolar edema. Radiographic follow up is recommended. 3. Suspected small to moderate right pleural effusion. ACT 112: Negative or not required by law. Electronically signed by: Shane Goins M.D. 12/06/2020 9:29 AM Chest X-Ray 12/06/20 06:00 XR chest 1V portable CLINICAL HISTORY: Congestive heart failure. COMPARISON STUDY: Chest radiograph December 05, 2020. FINDINGS: A left subclavian pacer/AICD and median sternotomy wires are noted. There is no pneumothorax. A right pleural effusion has increased in size. Interstitial thickening has increased. Bilateral airspace opacities, greater within the right lung, have increased. Cardiomegaly is unchanged. IMPRESSION: 1. Progression of pulmonary edema and a right pleural effusion. 2. Bilateral airspace opacities, greater within the right lung with evidence of right lower lung volume loss. This may reflect alveolar edema or superimposed pneumonia. Radiographic follow-up is recommended. ACT 112: Negative or not required by law. Electronically signed by: Shane Goins M.D. 12/06/2020 8:06 AM Chest X-Ray 12/08/20 14:24 XR chest 2V PA/lateral CLINICAL HISTORY: decreased BS b/l, R>L; effusions? COMPARISON STUDY: 12/06/2020 FINDINGS: The heart remains enlarged. There are postsurgical changes of a midline sternotomy. There is a left subclavian pacer/defibrillator present. There is improving pulmonary edema. There are bilateral pleural effusions right greater than left. There are improving basilar airspace opacities.[ IMPRESSION: Improving pulmonary edema with persistent bilateral pleural effusions right larger than left. ACT 112: Negative or not required by law. Electronically signed by: Shemar Santos M.D. 12/08/2020 3:[address] 12/08/20 16:[address] WITH CONTRAST CT DOSE: 1035.32 mGy.cm HISTORY: Follow up study in a patient with cardiomegaly and pleural effusions b/l effusions; lymphadenopathy on prior CT scan TECHNIQUE: Multiaxial CT images of the chest were performed following the IV administration of 115 cc of Optiray. A dose lowering technique was utilized adhering to the principles of ALARA. COMPARISON: CT chest 09/20/2019 FINDINGS: Unremarkable thyroid. Calcified left hilar lymph nodes. There is decreased size of the previously noted mediastinal adenopathy. Index AP window lymph node measures 1.1 cm, previously 1.5 cm. Precarinal 1.0 cm lymph node on image 131 previously measured 1.6 cm. 1.3 cm right hilar lymph node also appears to have mildly decreased in size. 1.2 cm subcarinal lymph node, previously 1.5 cm. Streak artifact from left subclavian pacer. Moderate cardiac megaly with prior median sternotomy and CABG. Extensive unga coronary artery calcifications. Moderate atherosclerotic plaque of the thoracic aorta without aneurysm. Patency of the imaged great vessels. The opacified pulmonary artery is unremarkable. Moderate right and small left pleural effusions. The right pleural effusion has increased in size from comparison. The left pleural effusion is stable to slightly decreased. No pneumothorax. Right greater than left bibasilar and dependent consolidation with groundglass opacities and intralobular septal thickening. There is improved aeration of the lungs compared to prior CT study. Mild scattered groundglass and micronodular consolidative opacities of the left lung. No pneumoperitoneum. Cholecystectomy. Indeterminate hypodense 8 mm lesion of the posterior right hepatic lobe. Gynecomastia. Degenerative changes of the spine and shoulders. IMPRESSION: 1. Cardiomegaly with mild pulmonary edema. 2. Moderate right and small left pleural effusions. The right pleural effusion has increased in size from the 09/20/[address] 3. Prominent and mildly enlarged mediastinal and hilar lymph nodes have decreased in size from comparison suggestive of reactive etiology. 4. There is improved aeration of the lungs. Mild left lung predominant groundglass and nodular consolidative opacities are suggestive of an infectious or inflammatory pneumonitis. 5. Right greater than left dependent bibasilar consolidation favors compressive atelectasis. ACT 112: Negative or not required by law. Electronically signed by: Kana Santos M.D. 12/08/2020 7:25 PM Echocardiogram - * technically limited study * EF 35-40% * grade 2 diastolic dysfunction * LAD territory is hypokinetic * moderate-severe LVH * dilated IVC * aortic valve sclerosis - no stenosis Diabetes Follow up Diabetes Follow-up Needed for HgbA1c >9% Hospital Course (1) Acute on chronic combined systolic and diastolic congestive heart failure: Diuresed well with IV bumex. Discharge weight was 110.8 kg. He will continue bumex 1mg BID at home along with aldactone 25mg daily. Continue metoprolol succinate 100mg daily, lisinopril 5mg daily, and fluid / salt restriction at discharge. Advised daily standing scale weights at home. By history the patient could not afford Entresto. He will follow-up with Carla ADAMS in the CHF clinic post-discharge. (2) Pneumonia: community-acquired. left-sided as seen on CT this admission. Received 5 days of IV/PO antibiotics while here. blood cx's negative. COVID negative at admission. And, patient had COVID vaccine. He will finish 2 additional days of oral doxycycline at home. (3) Acute on chronic respiratory failure with hypoxia: acute components 2nd decompensated CHF as well as left-sided pneumonia. IMPROVED as noted above. chronic -- patient was supposed to be on continuous NC O2 at home but was not using such. 2-step ambulatory oxygen test on day of discharge did NOT show a need for ambulatory O2 fortunately. (4) Pleural effusion: chest CT with b/l effusions, much worse on right. lymphadenopathy in comparison to 2020 CT is MUCH better. the right-sided effusion is likely to be transudative in nature but if it persists over time consider referral to pulmonary for thoracentesis. (5) Elevated troponin: likely myocardial demand ischemia in setting of above issues. peak troponin 0.300. (6) Diabetes: pharmacy provided glycemic management while hospitalized. HbA1C 10.3%. He admitted to dietary noncompliance at home. It was very hard to recommend specific amounts of insulin at discharge because he was only requiring a fraction of lantus/novolog during the stay in comparison to previous home amounts. At discharge we advised cutting his lantus to 50 units BID and resuming his novolog as previous. He was counseled multiple times about dietary compliance. (7) Ventricular tachycardia: history of has AICD in place telemetry with stable a.fib while here no NSVT this admission (8) CAD, multiple vessel: with resulting cardiomyopathy cont BB cont CORDELIA cont asa cont statin echo findings as noted in his d/c summary no ischemic symptoms while here (9) Enlarged prostate without lower urinary tract symptoms (luts): no issues during the stay voiding w/o difficulty (10) Hypertension: cont usual home meds controlled by report had had orthostasis in the weeks leading up to the admission but he had none of such while here (11) Dyslipidemia: statin LDL of 61 in 05/2020 (12) Presence of single chamber implantable cardioverter-defibrillator (ICD): noted (13) PAD (peripheral artery disease): RLE is larger than his LLE on a chronic basis (14) Chronic kidney disease, stage III (moderate): Creatinine remained stable despite aggressive diuresis Discharge Creatinine was 1.33 (15) Permanent atrial fibrillation: rates controlled with metoprolol succinate 100mg daily continue xarelto for anticoagulation (16) Lumbar stenosis with neurogenic claudication: chronic, but had acute discomfort while hospitalized. received voltaren gel qid and scheduled tylenol 1gm TID. was scheduled to get epidural shot recently but canceled due to his illness. advised to reschedule this in near-future. Total Time Total Time Spent Total Time Spent (In Minutes): 45 Total Time Includes: Examination of the Patient, Discharge Planning, Medication Reconciliation and Communication With Other Providers Discharge Plan Discharge Items Patient Disposition: Home - Self-Care Reason For Visit: Congestive Heart Failure Discharge Diagnosis: 1. fluid retention due to congestive heart failure - fluid issue resolved, breathing improved. 2. left-sided pneumonia - resolving. 3. right-sided pleural effusion (pocket of fluid in lung) - this will need to be followed over time. 4. uncontrolled diabetes Activity: As commented below Activity Comment: as tolerated Non-emergency contact: Primary Care Provider and Appeals Analyst Call non-emergency contact if: you have any medication questions, your symptoms worsen and you have a fever Follow-up/Referrals: Ron Aguilera MD [Primary Care Provider] - 12/17/20 1:30 pm (Your appointment is with the physician cardiology physician assistant, Kriss Dominguez. If you have any questions or need to change this appointment, please call [phone].) Berna Gresham PA-C [Physician Pipe Maker] - 12/16/20 (please call her office on Monday to confirm appointment time on the 16 of December.) Diet: Carb Consistent or DM2 and Low Sodium (2gm) Fluids: 2000ml (8 cups) Addtl Attending Provider Instructions: Mr Goodrich, You were treated for the problems listed above in "discharge diagnoses". You improved with treatment of your pneumonia with antibiotics as well as d iuretics for the congestive heart failure. Your weight today is 244 pounds - your best weight in some time. Your diabetes improved in the hospital with the assistance from our diabetes team. Recommendations - 1. doxycycline 100mg twice daily for 2 more days, first dose tonight. This is your antibiotic for the pneumonia. Occasionally this medication causes heartburn. Also, if you spend time in the sun this weekend, cover up as it can sometimes cause a rash if you get a lot of sun. 2. congestive heart - * stop your furosemide (lasix) * change to bumetanide (bumex) and take 1mg every morning and 1mg every afternoon; this is a water pill diuretic * you can start the bumetanide TOMORROW morning * weigh yourself EVERY morning on the same scale after using the toilet; write your weights down on paper; call Ms Gresham at the CHF clinic if you gain more than 2-3 pounds over 1-2 days -- this is fluid weight gain from congestive heart failure * limit 24-hour total fluid intake to no more than 2000cc (2 liters) * limit salt to no more than 2000mg in 24 hours * see CHF instructions below 3. diabetes - * your diabetes was well controlled here on much less insulin * it is difficult for me to know how much insulin to recommend to you since you were not requiring much while here * to be safe - please lower your lantus to 50 units twice daily * you can continue your novolog as previous with meals 4. oxygen - you passed your oxygen walking test this morning; you do not need to use oxygen when you are sitting or walking Follow-up - see separate section Return to Hospital if - * you develop severe diarrhea * you have worsening shortness of breath or chest pain * you have rapid weight gains and fluid build-up * you have fever over 100 degrees * any other concerns Addtl Jailer Chief Provider Instructions: Congestive Heart Failure instructions- Call 911 and go to the Emergency Room if: * You have tightness or pain in your chest that does not go away with rest or Nitroglycerin * You are very short of breath even with rest Call your doctor if any of the following symptoms or problems start or get worse: * Shortness of breath or difficulty breathing * Wake up at night short of breath * Chest pain * Cough * Swelling of your hands, fee, or legs * More fatigued or tired with your normal activity * Palpitations - sudden fast heart beats WEIGHT * Weigh yourself every morning after using the bathroom. * Use the same scale. * Wear the same amount of clothing. * Write your weight down on your chart. * Call your doctor if you gain more than 2-3 pounds in 1-2 days. MEDICATIONS * Use this discharge instruction sheet for instructions. * Take your medications at the time your doctor ordered. * Do not skip a dose of your medicines. * If you miss a dose of medicine, take as soon as possible, but DO NOT DOUBLE A DOSE. * Read your medicine information when you get home. * Know all of the side effects of your medicine. * Call your doctor's office if you have any side effects. * Be sure all of your doctors know what medicine and herbs you take (including cold, flu, and herbal medicine). * Pain Medicine: If you do not get relief from your pain, please call your doctor for help. Take the following with you to your follow-up doctor appointments: * Weight Chart * Medication List * List of questions Do not drink excessive alcohol, beer or wine. Pending Studies at Discharge: No Stand-Alone Forms: My [facility] [place], Smoking Cessation Medications and DC Order Prescriptions: Continued (DME) FreeStyle Lite Strips strip See Dose Instructions .ROUTE .MEDSUPPLY Qty: 350 RF: 3 pantoprazole 40 mg tablet,delayed release (DR/EC) 40 mg PO BID Qty: 180 RF: 3 (DME) insulin syringe-needle U-100 [BD Insulin Syringe Ultra-Fine] 1 mL 31 gauge x 5/16 syringe See Rx Instructions .ROUTE .MEDSUPPLY Qty: 500 RF: 3 cholecalciferol (vitamin D3) 50 mcg (2,000 unit) capsule 4,000 unit PO QAM RF: 0 gabapentin 300 mg capsule 600 mg PO BID Qty: 56 RF: 0 lisinopril 5 mg tablet 5 mg PO QAM Qty: 30 RF: 2 (DME) Dexcom G6 Sensor Device See Rx Instructions .ROUTE .MEDSUPPLY Qty: 3 RF: 0 (DME) Dexcom G6 Transmitter Device See Rx Instructions .ROUTE .MEDSUPPLY Qty: 1 RF: 0 (DME) Dexcom G6 Travel Accommodations Rater Misc See Rx Instructions .ROUTE .MEDSUPPLY Qty: 1 RF: 0 spironolactone 25 mg tablet 25 mg PO DAILY RF: 0 Hold Instructions: Hyperkalemia nitroglycerin [Nitrostat] 0.4 mg tablet, sublingual 0.4 mg Sublingual Q5M PRN (Reason: Chest Pain) RF: 0 aspirin 81 mg Tablet,Delayed Release (Dr/Ec) 81 mg PO QAM RF: 0 atorvastatin 80 mg tablet 80 mg PO HS RF: 0 metoprolol succinate 100 mg tablet extended release 24 hr 100 mg PO QAM RF: 0 montelukast 10 mg tablet 10 mg PO HS RF: 0 duloxetine 60 mg capsule,delayed release(DR/EC) 60 mg PO QAM RF: 0 Xarelto 15 mg tablet 15 mg PO QPM RF: 0 Changed Lantus U-100 Insulin 100 unit/mL solution 50 unit subcut BID Qty: 0 RF: 0 Discontinued furosemide 40 mg tablet 40 mg PO BID Qty: 180 RF: 3 No Action insulin aspart U-100 [Novolog U-100 Insulin aspart] 100 unit/mL solution 65 unit SQ QID MDD 300 units Qty: 28 RF: 3 bumetanide 1 mg tablet 1 mg PO BID Qty: 200 RF: 3 Discharge Orders: Discharge Order (Routine); Ordered 12/11/20 Ordered By: Mario Alberto Yi Admission Data Admit Date/Time: 12/05/20 22:59 Attending Provider: Mario Alberto Yi Admit Provider: Eddie Sabillon Primary Care Provider: Ron Aguilera Other Providers: Buster Doran ; Hamzah Infante Other Interventions: Discharge Summary Assessment (RN) Last Done: 12/11/20 15:03 Coding Level of Care Code D/C Day Management >30 mins Diagnoses Acute on chronic combined systolic and diastolic congestive heart failure I50.43 Pneumonia J18.9 Laterality: unspecified laterality Lung location: unspecified part of lung Pneumonia type: due to unspecified organism Acute on chronic respiratory failure with hypoxia J96.21 Pleural effusion J90 Elevated troponin R77.8 Diabetes E11.9 Ventricular tachycardia I47.2 CAD, multiple vessel I25.10 Enlarged prostate without lower urinary tract symptoms (luts) N40.0 Hypertension I10 Hypertension type: essential hypertension Dyslipidemia E78.5 Presence of single chamber implantable cardioverter-defibrillator (ICD) Z95.810 PAD (peripheral artery disease) I73.9 Chronic kidney disease, stage III (moderate) N18.3 Permanent atrial fibrillation I48.2 Lumbar stenosis with neurogenic claudication M48.062
--- NOTE | 2020-12-17 13:38 | Coding Query ---
CODING QUERY To promote full compliance with coding requirements relating to patient care, provider participation is requested in all cases of hospice music therapist uncertainty. Please assist us with the question(s) below: Coding Question(s): "Uncontrolled Diabetes is documented on discharge summary. Please clarify below: ( ) Diabetes with Hypoglycemia (x ) Diabetes with Hyperglycemia ( ) Other Please Explain: Thank you Josue Inman Principal Diagnosis: "that condition established after study, to be chiefly responsible for occasioning the admission of the patient to the hospital for care." Co-Existing Principal Diagnosis: "when two or more diagnoses equally meet the criteria for principal diagnosis as determined by the circumstances of admission, diagnostic work up, and/or therapy provided, and the Alphabetic Index, Tabular List, or another coding guideline does not provide sequencing direction, any one of the diagnoses may be sequenced first." "When the physician has documented what appears to be a current diagnosis in the body of the record, but has not included the diagnosis in the final diagnostic statement, the physician should be asked whether the diagnosis should be added." (Source Coding Clinic 2 QTR90. p3-4) JULY
== END 2020-12-11 16:30 | disposition home or self-care (01) | DRG 291 ==
LOC: ED 20:40 → SUATTDRO 22:59 → 2W 22:59
DX: I50.43 Acute on chronic combined systolic (congestive) and diastolic (congestive) heart failure; Z79.82 Long term (current) use of aspirin; F32.9 Major depressive disorder, single episode, unspecified; E11.42 Type 2 diabetes mellitus with diabetic polyneuropathy; J96.21 Acute and chronic respiratory failure with hypoxia; Z79.899 Other long term (current) drug therapy; I24.8 Other forms of acute ischemic heart disease; N18.30 Chronic kidney disease, stage 3 unspecified; K21.9 Gastro-esophageal reflux disease without esophagitis; Z95.1 Presence of aortocoronary bypass graft; E11.51 Type 2 diabetes mellitus with diabetic peripheral angiopathy without gangrene; E78.5 Hyperlipidemia, unspecified; E87.6 Hypokalemia; R31.9 Hematuria, unspecified; Z95.5 Presence of coronary angioplasty implant and graft; Z87.891 Personal history of nicotine dependence; Y84.6 Urinary catheterization as the cause of abnormal reaction of the patient, or of later complication, without mention of misadventure at the time of the procedure; I44.7 Left bundle-branch block, unspecified; Z79.4 Long term (current) use of insulin; M48.062 Spinal stenosis, lumbar region with neurogenic claudication; J18.9 Pneumonia, unspecified organism; G47.30 Sleep apnea, unspecified; I87.2 Venous insufficiency (chronic) (peripheral); I13.0 Hypertensive heart and chronic kidney disease with heart failure and stage 1 through stage 4 chronic kidney disease, or unspecified chronic kidney disease; Z79.01 Long term (current) use of anticoagulants; I25.10 Atherosclerotic heart disease of native coronary artery without angina pectoris; T83.83XA Hemorrhage due to genitourinary prosthetic devices, implants and grafts, initial encounter; Y92.239 Unspecified place in hospital as the place of occurrence of the external cause; F41.9 Anxiety disorder, unspecified; E11.65 Type 2 diabetes mellitus with hyperglycemia; Z99.81 Dependence on supplemental oxygen; Z95.810 Presence of automatic (implantable) cardiac defibrillator; I48.21 Permanent atrial fibrillation

== ENCOUNTER 2022-03-09 22:50 | Inpatient (IN) ==
--- NOTE | 2022-03-09 23:06 | Emergency Department Note ---
History of Present Illness General Chief complaint: Altered Mental Status Stated complaint: confusion Time Seen by Provider: 03/09/22 22:51 History of Present Illness 81-year-old male presents emergency department reportedly with some confusion. Patient states he does not know why he is here he states that his thinks he is "" stupid; denies chest pain shortness of breath abdominal pain nausea vomiting. Reportedly according to the nurses he did not take his medications this morning. He has a history of A. fib he is on Xarelto; there is no further history available to me on initial examination Home Medications Medication Instructions Recorded Confirmed Type aspirin 81 mg tablet,delayed 81 mg PO QAM 06/04/18 02/09/22 History release nitroglycerin 0.4 mg sublingual 0.4 mg sublingual Q5M PRN Chest 02/25/19 02/09/22 History tablet (Nitrostat) Pain cholecalciferol (vitamin D3) 50 4,000 unit PO QAM 04/22/20 02/09/22 History mcg (2,000 unit) capsule blood-glucose meter,continuous #1 ea 11/10/20 02/09/22 History (Dexcom G6 Customer Support Analyst misc) blood-glucose sensor (Dexcom G6 #3 ea 11/10/20 02/09/22 History Sensor device) blood-glucose transmitter (Dexcom #1 ea 11/10/20 02/09/22 History G6 Transmitter device) lisinopril 5 mg tablet 5 mg PO QAM #90 tabs 03/31/21 02/09/22 Rx insulin aspart U-100 100 unit/mL 75 unit subcut QID 04/06/21 02/09/22 History subcutaneous solution (Novolog U-100 Insulin aspart) insulin syringe-needle U-100 1 mL #600 ea 04/16/21 02/09/22 Rx 31 gauge x 5/16" (BD Insulin Syringe Ultra-Fine) atorvastatin 80 mg tablet 80 mg PO HS #90 tabs 05/12/21 02/09/22 Rx gabapentin 300 mg capsule 600 mg PO BID #360 caps 05/21/21 02/09/22 Rx rivaroxaban 15 mg tablet (Xarelto) 15 mg PO QPM #90 tabs 05/26/21 02/09/22 Rx spironolactone 25 mg tablet 25 mg PO BID #180 tabs 06/11/21 02/09/22 Rx duloxetine 60 mg capsule,delayed 60 mg PO QAM #90 caps 08/25/21 02/09/22 Rx release metoprolol succinate 100 mg 100 mg PO QAM #90 tabs 08/25/21 02/09/22 Rx tablet,extended release 24 hr montelukast 10 mg tablet 10 mg PO HS #90 tabs 09/10/21 02/09/22 Rx bumetanide 1 mg tablet 1 mg PO BID #200 tabs 11/23/21 02/09/22 Rx blood sugar diagnostic (FreeStyle 12/01/21 02/09/22 History Lite Strips) fenofibrate 54 mg tablet 54 mg PO HS 01/04/22 02/09/22 History ketoconazole 2 % topical cream 1 applic topical DAILY PRN Rash 01/04/22 02/09/22 History pantoprazole 40 mg tablet,delayed 40 mg PO QAM 01/04/22 02/09/22 History release insulin glargine 100 unit/mL 80 unit (0.8 mL) subcut BID high 01/17/22 02/09/22 Rx subcutaneous solution (Lantus blood sugar #150 mL U-100 Insulin) Allergies Allergy/AdvReac Type Severity Reaction Status Date / Time No Known Drug Allergies Allergy Unknown NKDA Verified 02/09/22 11:47 Past Med/Surg History Medical History Anxiety Atrial fibrillation C4 cervical fracture CAD (coronary artery disease) Cardiomyopathy Carotid artery stenosis, asymptomatic CHF (congestive heart failure) Chronic kidney disease, stage III (moderate) Depression DM type 2 (diabetes mellitus, type 2) Dysphagia Gastroparesis GERD (gastroesophageal reflux disease) Hearing deficit History of traumatic brain injury Hyperlipidemia Hypertension ICD (implantable cardioverter-defibrillator) in place Insomnia LBBB (left bundle branch block) PAD (peripheral artery disease) Peripheral neuropathy Poor historian Situational depression Sleep apnea Spinal stenosis Subdural hematoma Venous insufficiency Surgical History History of anesthesia reaction History of back surgery History of cardiac cath History of cataract surgery History of cholecystectomy History of colonoscopy History of knee replacement Hx of angioplasty Hx of CABG S/P epidural steroid injection S/P ICD (internal cardiac defibrillator) procedure Family History Daughter Family history of reaction to anesthesia Sister Cancer Father Family history of diabetes mellitus Grandmother (Maternal) Family history of diabetes mellitus Other No significant family history Denies family history of Ovarian cancer Prostate cancer Coronary heart disease Breast cancer Colorectal cancer Social History Smoking Status: Unknown if ever smoked Tobacco Type: Cigarettes Age Started Using Tobacco: 19; Age Quit Using Tobacco: 49; packs per day: 2; Second Hand Exposure: Yes (SPOUSE SMOKES (OUTSIDE)); Hx Alcohol Use: No Hx Substance Use: No Preferred Language: Albanian Communication Ability: Effective Visual Impairment: Limited Hearing Ability: Hard of Hearing Medical Reimbursement Manager Required: No Beliefs That Will Affect Care: None marital status: Current Living Situation: Spouse current occupational status: retired 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 How many Children do You have: 6 Feels Safe at Home: Yes Childhood Exposure to Second-Hand Smoke: Yes caffeine: No during the past year weight has: remained stable Dental Care, Regularly: Yes Physical Activity Frequency: Does not Exercise Seatbelt Use: never Sunscreen Use: No Assistive Devices: Cane, Denture - Upper, Glasses and Walker Review of Systems Unobtainable due to cognitive status Physical Exam Vital Signs Vital Signs - 24 hr 03/09/22 23:10 03/10/22 00:58 03/10/22 00:55 Temperature 37.5 C Temperature Source Oral Pulse Rate 101 H 99 H Pulse Rate from SpO2 Sensor 98 H Pulse Rhythm Regular Pulse Strength Normal Respiratory Rate 19 19 Respiratory Effort / Characteristics Non-Labored Respiratory Depth Normal Respiratory Pattern Regular Blood Pressure 110/66 154/82 H Blood Pressure Mean 80 106 Pulse Oximetry 87 L 95 95 Oxygen Delivery Method Room Air Oxygen Flow Rate 0 2 2 Sepsis Recent Fever Within 48 Hours No Sepsis New/Unexplained Change in Mental Status Yes Sepsis Action Taken by Nursing MD Previously Notified Pulse Oximetry Post Tiitration 03/09/22 23:11 03/10/22 01:43 03/10/22 02:01 Temperature Temperature Source Pulse Rate 99 H 85 Pulse Rate from SpO2 Sensor 99 H 83 Pulse Rhythm Pulse Strength Respiratory Rate 29 H 19 Respiratory Effort / Characteristics Respiratory Depth Respiratory Pattern Blood Pressure 148/69 H 119/65 Blood Pressure Mean 95 83 Pulse Oximetry 86 L 95 95 Oxygen Delivery Method Nasal Cannula Oxygen Flow Rate 2 Sepsis Recent Fever Within 48 Hours Sepsis New/Unexplained Change in Mental Status Sepsis Action Taken by Nursing Pulse Oximetry Post Tiitration 96 VITAL SIGNS - Vital signs and nursing notes were reviewed. GENERAL -no acute distress. Communicates well with provider and answers questions appropriately. SKIN - Without rashes. HEAD - NC/AT. EYES - PERRL with EOMI bilaterally. Sclera anicteric. Palpebral conjunctiva pink and moist with no injection noted. EARS - No deformities of external structures noted on gross examination bilaterally. NOSE - Midline and without cyanosis. No epistaxis or purulent drainage noted. Septum midline without deviation or septal hematoma noted. MOUTH/OROPHARYNX - Without perioral cyanosis. Buccal mucosa pink and moist and without leukoplakia. Tongue midline with equal elevation of palate bilaterally. No tonsillar hypertrophy, erythema, or exudates noted. NECK - Neck with FROM. Supple to palpation. No nuchal rigidity. LUNGS - Chest wall symmetric without accessory muscle use, intercostals retract ions, or central cyanosis. Normal vesicular breath sounds CTA B/L. No wheezes, rales, or rhonchi appreciated. CARDIAC -irregularly irregular with S1/S2. No murmur, rubs, or gallops appreciated. ABDOMEN - Abdominal contour soft without pulsations or visible masses. BS normoactive all four quadrants. No tenderness, palpable masses, hepatosplenomegaly, or ascites noted. EXTREMITIES - No clubbing or peripheral cyanosis.. +5/5 strength noted in UE/LE bilaterally. NEUROLOGIC - Cranial nerves II through XII grossly intact. PSYCH - A&Ox1 and cooperates fully with examiner. Pt is very pleasant and in teracts well with examiner. Course Reevaluation(s) Reevaluation #1: Patient was started on IV fluids, patient was started on IV antibiotics empirically patient has an elevated white blood cell count, patient has a negative CT of the brain. The case was discussed with the hospitalist for admission. Patient is not in septic shock at 1:50 AM. Time: 01:54 Consultations Consultation #1: Spoke with the [facility] hospitalist for admission Time: 01:55 Administered Medications Discontinued Medications Ceftriaxone Sodium (Rocephin) 2,000 mg in 70 mls @ 140 mls/hr IV NOW STA Stop: 03/10/22 01:41 Last Infusion: 03/10/22 02:13 Dose: 0 mls/hr Documented By: Admin: 03/10/22 01:35 Dose: 140 mls/hr Documented By: CHIQUITA Medical Decision Making Medical Records Attestation: I reviewed the patient's medical records. Home Medications Current Medication List: was personally reviewed by me Laboratory Data Attestation: I reviewed the patient's lab results. Result diagrams: 03/09/22 23:40 03/09/22 23:40 Lab Results 03/09/22 03/09/22 03/09/22 Range/Units 22:59 23:40 23:40 WBC 19.59 H (4.8-10.8) K/ul RBC 4.18 L (4.63-6.08) M/uL Hgb 13.0 L (14.0-18.0) g/dl Hct 39.7 L (40.1-51.0) % MCV 95.0 (80.0-100.0) fL MCH 31.1 (25.0-34.0) pg MCHC 32.7 (32.0-36.0) g/dL RDW Std Deviation 53.5 H (36.4-46.3) fL RDW Coeff of Paulo 15.4 H (11.5-14.5) % Plt Count 353 (130-400) K/uL MPV 10.9 (9.4-12.4) fL Immature Gran % (Auto) 0.5 % Neut % (Auto) 86.3 % Lymph % (Auto) 5.5 % [place] % (Auto) 7.2 % Eos % (Auto) 0.2 % Baso % (Auto) 0.3 % Neut # (Auto) 16.91 H (1.4-6.5) K/uL Lymph # (Auto) 1.08 L (1.2-3.4) K/uL [place] # (Auto) 1.41 H (0.24-0.82) K/uL Eos # (Auto) 0.03 (0-0.50) K/uL Baso # (Auto) 0.06 (0-0.2) K/uL Immature Gran # (Auto) 0.10 H (0.00-0.02) K/uL PT 11.1 (9.0-12.0) Seconds INR 1.0 (0.9-1.1) APTT 28.8 (21.0-31.0) Seconds PTT Ratio 1.0 Sodium (136-145) mmol/L Potassium (3.5-5.1) mmol/L Chloride (98-107) mmol/L Carbon Dioxide (21-32) mmol/L Anion Gap (3-11) BUN (6-23) mg/dl Creatinine (0.6-1.4) mg/dl Est Cr Clr Drug Dosing Est GFR ( Amer) ml/min Est GFR (Non-Af Amer) ml/min BUN/Creatinine Ratio (10-20) Glucose (70-99(Fasting)) mg/dl POC Glucose 229 H (70-99) mg/dl Lactate (0.4-2.0) mmol/L Calcium (8.5-10.1) mg/dl Magnesium (1.7-2.4) mg/dl Total Bilirubin (0.2-1.0) mg/dl AST (13-39) U/L ALT (7-52) U/L Alkaline Phosphatase (34-104) U/L Total Protein (6.0-8.3) gm/dl Albumin (3.4-5.0) gm/dl Globulin (2.5-4.0) gm/dl Albumin/Globulin Ratio (0.9-2) Urine Color Urine Appearance (Clear) Urine pH (4.5-7.5) Ur Specific [place] (1.000-1.030) Urine Protein (Negative) Urine Glucose (UA) (Negative) Urine Ketones (Negative) Urine Blood (Negative) Urine Nitrite (Negative) Urine Bilirubin (Negative) Urine Urobilinogen (Negative) Ur Leukocyte Esterase (Negative) Urine WBC (Auto) (0-5) /hpf Urine RBC (Auto) (0-4) /hpf U Hyaline Cast (Auto) (0-5) /lpf U Epithel Cells (Auto) (0-5) /lpf Urine Bacteria (Auto) (Negative) SARS-CoV-2, RNA, NAAT (NEGATIVE) 03/09/22 03/09/22 03/09/22 Range/Units 23:40 23:40 23:50 WBC (4.8-10.8) K/ul RBC (4.63-6.08) M/uL Hgb (14.0-18.0) g/dl Hct (40.1-51.0) % MCV (80.0-100.0) fL MCH (25.0-34.0) pg MCHC (32.0-36.0) g/dL RDW Std Deviation (36.4-46.3) fL RDW Coeff of Paulo (11.5-14.5) % Plt Count (130-400) K/uL MPV (9.4-12.4) fL Immature Gran % (Auto) % Neut % (Auto) % Lymph % (Auto) % [place] % (Auto) % Eos % (Auto) % Baso % (Auto) % Neut # (Auto) (1.4-6.5) K/uL Lymph # (Auto) (1.2-3.4) K/uL [place] # (Auto) (0.24-0.82) K/uL Eos # (Auto) (0-0.50) K/uL Baso # (Auto) (0-0.2) K/uL Immature Gran # (Auto) (0.00-0.02) K/uL PT (9.0-12.0) Seconds INR (0.9-1.1) APTT (21.0-31.0) Seconds PTT Ratio Sodium 133 L (136-145) mmol/L Potassium 4.5 (3.5-5.1) mmol/L Chloride 94 L (98-107) mmol/L Carbon Dioxide 31 (21-32) mmol/L Anion Gap 8 (3-11) BUN 37 H (6-23) mg/dl Creatinine 1.92 H (0.6-1.4) mg/dl Est Cr Clr Drug Dosing Not Reportable Est GFR ( Amer) 36.8 ml/min Est GFR (Non-Af Amer) 31.7 ml/min BUN/Creatinine Ratio 19.3 (10-20) Glucose 224 H (70-99(Fasting)) mg/dl POC Glucose (70-99) mg/dl Lactate 1.7 (0.4-2.0) mmol/L Calcium 9.7 (8.5-10.1) mg/dl Magnesium 1.8 (1.7-2.4) mg/dl Total Bilirubin 0.8 (0.2-1.0) mg/dl AST 9 L (13-39) U/L ALT 6 L (7-52) U/L Alkaline Phosphatase 51 (34-104) U/L Total Protein 7.7 (6.0-8.3) gm/dl Albumin 4.1 (3.4-5.0) gm/dl Globulin 3.6 (2.5-4.0) gm/dl Albumin/Globulin Ratio 1.1 (0.9-2) Urine Color Urine Appearance (Clear) Urine pH (4.5-7.5) Ur Specific [place] (1.000-1.030) Urine Protein (Negative) Urine Glucose (UA) (Negative) Urine Ketones (Negative) Urine Blood (Negative) Urine Nitrite (Negative) Urine Bilirubin (Negative) Urine Urobilinogen (Negative) Ur Leukocyte Esterase (Negative) Urine WBC (Auto) (0-5) /hpf Urine RBC (Auto) (0-4) /hpf U Hyaline Cast (Auto) (0-5) /lpf U Epithel Cells (Auto) (0-5) /lpf Urine Bacteria (Auto) (Negative) SARS-CoV-2, RNA, NAAT NEGATIVE (NEGATIVE) 03/10/22 Range/Units 01:30 WBC (4.8-10.8) K/ul RBC (4.63-6.08) M/uL Hgb (14.0-18.0) g/dl Hct (40.1-51.0) % MCV (80.0-100.0) fL MCH (25.0-34.0) pg MCHC (32.0-36.0) g/dL RDW Std Deviation (36.4-46.3) fL RDW Coeff of Paulo (11.5-14.5) % Plt Count (130-400) K/uL MPV (9.4-12.4) fL Immature Gran % (Auto) % Neut % (Auto) % Lymph % (Auto) % [place] % (Auto) % Eos % (Auto) % Baso % (Auto) % Neut # (Auto) (1.4-6.5) K/uL Lymph # (Auto) (1.2-3.4) K/uL [place] # (Auto) (0.24-0.82) K/uL Eos # (Auto) (0-0.50) K/uL Baso # (Auto) (0-0.2) K/uL Immature Gran # (Auto) (0.00-0.02) K/uL PT (9.0-12.0) Seconds INR (0.9-1.1) APTT (21.0-31.0) Seconds PTT Ratio Sodium (136-145) mmol/L Potassium (3.5-5.1) mmol/L Chloride (98-107) mmol/L Carbon Dioxide (21-32) mmol/L Anion Gap (3-11) BUN (6-23) mg/dl Creatinine (0.6-1.4) mg/dl Est Cr Clr Drug Dosing Est GFR ( Amer) ml/min Est GFR (Non-Af Amer) ml/min BUN/Creatinine Ratio (10-20) Glucose (70-99(Fasting)) mg/dl POC Glucose (70-99) mg/dl Lactate (0.4-2.0) mmol/L Calcium (8.5-10.1) mg/dl Magnesium (1.7-2.4) mg/dl Total Bilirubin (0.2-1.0) mg/dl AST (13-39) U/L ALT (7-52) U/L Alkaline Phosphatase (34-104) U/L Total Protein (6.0-8.3) gm/dl Albumin (3.4-5.0) gm/dl Globulin (2.5-4.0) gm/dl Albumin/Globulin Ratio (0.9-2) Urine Color Yellow Urine Appearance Clear (Clear) Urine pH 6.5 (4.5-7.5) Ur Specific [place] 1.019 (1.000-1.030) Urine Protein 1+ H (Negative) Urine Glucose (UA) 2+ H (Negative) Urine Ketones Negative (Negative) Urine Blood Negative (Negative) Urine Nitrite Negative (Negative) Urine Bilirubin Negative (Negative) Urine Urobilinogen Negative (Negative) Ur Leukocyte Esterase Negative (Negative) Urine WBC (Auto) 0 (0-5) /hpf Urine RBC (Auto) 0-4 (0-4) /hpf U Hyaline Cast (Auto) 1-5 (0-5) /lpf U Epithel Cells (Auto) 10-20 H (0-5) /lpf Urine Bacteria (Auto) Negative (Negative) SARS-CoV-2, RNA, NAAT (NEGATIVE) Imaging Data Attestation: I personally reviewed and interpreted this imaging study as follows: My Impression: Chest x-ray interpreted by me cardiomegaly slight increased markings bilaterally pacemaker present Radiologist's Impression: CT brain per radiology is no acute disease ECG Data Attestation: I personally reviewed and interpreted this ECG as follows: Additional Comments: EKG interpreted by me atrial fibrillation versus paced rhythm PVCs left axis d eviation left bundle branch block no obvious ST segment elevation or depression, rate of 97 MDM Narrative Medical decision making differential diagnosis includes sepsis urinary tract infection metabolic derangement dehydration pneumonia COVID. Plan is to check labs, CT, EKG, chest x-ray Impression & Plan Acute confusion, Leukocytosis Discharge Plan Visit Data Chief Complaint: Altered Mental Status Stated Complaint: confusion ED Provider: Trevon Gerard Discharge Problem: Acute confusion, Leukocytosis Patient Disposition: Being Evaluated by Hospitalist Forms Stand Alone Forms: My [facility] Prescriptions Prescriptions: No Action lisinopril 5 mg tablet 5 mg PO QAM Qty: 90 3RF (DME) insulin syringe-needle U-100 [BD Insulin Syringe Ultra-Fine] 1 mL 31 gauge x 5/16 syringe See Rx Instructions .ROUTE .MEDSUPPLY Qty: 600 3RF Rx Instructions: use 6 x daily to inject insulin atorvastatin 80 mg tablet 80 mg PO HS Qty: 90 3RF gabapentin 300 mg capsule 600 mg PO BID Qty: 360 3RF Xarelto 15 mg tablet 15 mg PO QPM Qty: 90 3RF spironolactone 25 mg tablet 25 mg PO BID Qty: 180 3RF Hold Instructions: Hyperkalemia duloxetine 60 mg capsule,delayed release(DR/EC) 60 mg PO QAM Qty: 90 3RF metoprolol succinate 100 mg tablet extended release 24 hr 100 mg PO QAM Qty: 90 3RF montelukast 10 mg tablet 10 mg PO HS Qty: 90 3RF bumetanide 1 mg tablet 1 mg PO BID Qty: 200 3RF Hold Instructions: Pt rpts no RF at pharm - last dose ~ 01/21/21. Now lasix Rx Instructions: take at 8am, and then about 4pm each day. May increase to 2 mg BID for weight gain, SOB, edema. Lantus U-100 Insulin 100 unit/mL solution 80 unit subcut BID Qty: 150 1RF cholecalciferol (vitamin D3) 50 mcg (2,000 unit) capsule 4,000 unit PO QAM (DME) Dexcom G6 Sensor Device See Rx Instructions .ROUTE .MEDSUPPLY Qty: 3 Rx Instructions: As directed (DME) Dexcom G6 Transmitter Device See Rx Instructions .ROUTE .MEDSUPPLY Qty: 1 Rx Instructions: As directed (DME) Dexcom G6 Customer Support Analyst Misc See Rx Instructions .ROUTE .MEDSUPPLY Qty: 1 Rx Instructions: As directed insulin aspart U-100 [Novolog U-100 Insulin aspart] 100 unit/mL solution 75 unit SQ QID Rx Instructions: plus sliding scale (DME) FreeStyle Lite Strips Strip See Rx Instructions .ROUTE .MEDSUPPLY Rx Instructions: TEST 1 TIMES DAILY nitroglycerin [Nitrostat] 0.4 mg tablet, sublingual 0.4 mg Sublingual Q5M PRN (Reason: Chest Pain) Rx Instructions: NEEDED FOR CHEST PAIN : ONE TABLET UNDER THE TONGUE EVERY 5 MINUTES UP TO 3 DOSES. aspirin 81 mg Tablet,Delayed Release (Dr/Ec) 81 mg PO QAM fenofibrate 54 mg tablet 54 mg PO HS pantoprazole 40 mg tablet,delayed release (DR/EC) 40 mg PO QAM ketoconazole 2 % cream 1 applic topical DAILY PRN (Reason: Rash) Referrals Referrals: Tere Narayan MD [Primary Care Provider] -
[2022-03-10 00:06] LABS: Basophils # (auto) 0.06 K/uL (0-0.2); Basophils % (auto) 0.3 %; Eosinophils # (auto) 0.03 K/uL (0-0.50); Eosinophils % (auto) 0.2 %; Hematocrit (blood only) 39.7 % (40.1-51.0); Immature Granulocytes % (auto) 0.5 %; Lymphocytes # (auto) 1.08 K/uL (1.2-3.4); Lymphocytes % (auto) 5.5 %; Mean Corpuscular Hemoglobin 31.1 pg (25.0-34.0); Mean Corpuscular Hgb Conc 32.7 g/dL (32.0-36.0); Mean Platelet Volume 10.9 fL (9.4-12.4); Monocytes # (auto) 1.41 K/uL (0.24-0.82); Monocytes % (auto) 7.2 %; Neutrophils # (auto) 16.91 K/uL (1.4-6.5); Neutrophils % (auto) 86.3 %; Platelet Count 353 K/uL (130-400); RDW Coefficient of Variation 15.4 % (11.5-14.5); RDW Standard Deviation 53.5 fL (36.4-46.3); Red Blood Count 4.18 M/uL (4.63-6.08); White Blood Count 19.59 K/ul (4.8-10.8)
[2022-03-10 00:14] LABS: Alanine Aminotransferase 6 U/L (7-52); Albumin Globulin Ratio 1.1 (0.9-2); Albumin Level 4.1 gm/dl (3.4-5.0); Alkaline Phosphatase 51 U/L (34-104); Anion Gap 8 (3-11); Aspartate Aminotransferase 9 U/L (13-39); BUN Creatinine Ratio 19.3 (10-20); Bilirubin,Total 0.8 mg/dl (0.2-1.0); Blood Urea Nitrogen 37 mg/dl (6-23); Calcium 9.7 mg/dl (8.5-10.1); Carbon Dioxide 31 mmol/L (21-32); Chloride 94 mmol/L (98-107); Est GFR (African American) 36.8 ml/min; Est GFR (Non-African American) 31.7 ml/min; Globulin 3.6 gm/dl (2.5-4.0); Glucose 224 mg/dl (70-99(Fasting)); Magnesium 1.8 mg/dl (1.7-2.4); Potassium 4.5 mmol/L (3.5-5.1); Sodium 133 mmol/L (136-145); Total Protein 7.7 gm/dl (6.0-8.3)
[2022-03-10 00:29] LABS: Partial Thromboplastin Time 28.8 Seconds (21.0-31.0); Prothrombin Time 11.1 Seconds (9.0-12.0)
[2022-03-10] MEDS ORDERED: cefTRIAXone SODIUM 2,000 MG/70 ML BAG IV STA (01:12)
[2022-03-10 02:05] LABS: Appearance Urine Clear (Clear); Bacteria Urine Automated Negative (Negative); Bilirubin Urine Negative (Negative); Blood Urine Negative (Negative); Color Urine Yellow; Glucose Urine UA 2+ (Negative); Ketones Urine Negative (Negative); Leukocyte Esterase Urine Negative (Negative); Nitrite Urine Negative (Negative); Protein Urine 1+ (Negative); RBC Urine Automated 0-4 /hpf (0-4); Specific Gravity Urine 1.019 (1.000-1.030); Urobilinogen Urine Negative (Negative); WBC Urine Automated 0 /hpf (0-5); pH Urine 6.5 (4.5-7.5)
--- NOTE | 2022-03-10 02:34 | History & Physical Report ---
Date of Service March 10, 2022 Assessment & Plan (1) Sepsis due to urinary tract infection: Plan: Sepsis due to urinary tract infection/urinary incontinence- Follow urine culture and sensitivity Follow blood culture and sensitivity Given ceftriaxone 2 g IV from the ED Admit on Zosyn 4.5 g IV every 8 hours (2) Acute confusion: Plan: Acute confusion- Patient does appear to have some underlying dementia, and has been more agitated with family recently Likely secondary to sepsis due to UTI Follow clinical examination Patient is a bit agitated, but does redirect quickly (3) Controlled type 2 diabetes mellitus with kidney complication, with long-term current use of insulin: Plan: He has had decreased oral intake over the past few days Reduce Lantus from 80 to 40 units subcu twice daily Placed on Accu-Cheks before meals and at bedtime with NovoLog coverage per scale Hold standing orders for insulin aspart 75 units subcu 4 times daily (4) CAD, multiple vessel: Plan: CAD/hypertension/cardiomyopathy/permanent atrial fibrillation- Continue aspirin, bumetanide, lisinopril, spironolactone and metoprolol succinate (5) Cardiomyopathy: Plan: See above (6) Permanent atrial fibrillation: Plan: Resuming Xarelto, which have been temporarily held for possible lumbar spine injection tomorrow at Dr. Mejía's office (7) Diabetic peripheral neuropathy associated with type 2 diabetes mellitus: Plan: Continue gabapentin (8) Lumbar disc disease: Plan: Xarelto was being held for possible injection tomorrow with Dr. Mejía Resume Xarelto, and arrangements made to be made another time for possible injection (9) Urinary incontinence: Plan: See above (10) Hypertension: Plan: See above (11) Diabetic peripheral neuropathy: Plan: Continue duloxetine History of Present Illness Chief Complaint: The patient is brought to the emergency department by family due to confusion and loss of control of urine function. Primary Care Provider: Tere Narayan MD The patient is a 81-year-old male with a past medical history including renal mass, dysthymia, episode of type II, ELIZABETH on CKD, cardiomyopathy, CAD multivessel, V. tach, permanent A. fib, chronic diastolic CHF, obesity, urinary incontinence, urinary tract infection, dyslipidemia, hypertension, scrotal edema, peripheral neuropathy, chronic HFrEF, gastroparesis, situational depression, and subdural hematoma. Patient is presently off of Xarelto as he was possibly getting a back injection by Dr. Mejía [facility] tomorrow. Family reports he became more confused this evening, and urinated all over the bathroom floor. Allergies Allergy/AdvReac Type Severity Reaction Status Date / Time No Known Drug Allergies Allergy Unknown NKDA Verified 02/09/22 11:47 Home Medications Medication Instructions Recorded Confirmed Type aspirin 81 mg tablet,delayed 81 mg PO QAM 06/04/18 02/09/22 History release nitroglycerin 0.4 mg sublingual 0.4 mg sublingual Q5M PRN Chest 02/25/19 02/09/22 History tablet (Nitrostat) Pain cholecalciferol (vitamin D3) 50 4,000 unit PO QAM 04/22/20 02/09/22 History mcg (2,000 unit) capsule blood-glucose meter,continuous #1 ea 11/10/20 02/09/22 History (Dexcom G6 Painter Helper Spray misc) blood-glucose sensor (Dexcom G6 #3 ea 11/10/20 02/09/22 History Sensor device) blood-glucose transmitter (Dexcom #1 ea 11/10/20 02/09/22 History G6 Transmitter device) lisinopril 5 mg tablet 5 mg PO QAM #90 tabs 03/31/21 02/09/22 Rx insulin aspart U-100 100 unit/mL 75 unit subcut QID 04/06/21 02/09/22 History subcutaneous solution (Novolog U-100 Insulin aspart) insulin syringe-needle U-100 1 mL #600 ea 04/16/21 02/09/22 Rx 31 gauge x 5/16" (BD Insulin Syringe Ultra-Fine) atorvastatin 80 mg tablet 80 mg PO HS #90 tabs 05/12/21 02/09/22 Rx gabapentin 300 mg capsule 600 mg PO BID #360 caps 05/21/21 02/09/22 Rx rivaroxaban 15 mg tablet (Xarelto) 15 mg PO QPM #90 tabs 05/26/21 02/09/22 Rx spironolactone 25 mg tablet 25 mg PO BID #180 tabs 06/11/21 02/09/22 Rx duloxetine 60 mg capsule,delayed 60 mg PO QAM #90 caps 08/25/21 02/09/22 Rx release metoprolol succinate 100 mg 100 mg PO QAM #90 tabs 08/25/21 02/09/22 Rx tablet,extended release 24 hr montelukast 10 mg tablet 10 mg PO HS #90 tabs 09/10/21 02/09/22 Rx bumetanide 1 mg tablet 1 mg PO BID #200 tabs 11/23/21 02/09/22 Rx blood sugar diagnostic (FreeStyle 12/01/21 02/09/22 History Lite Strips) fenofibrate 54 mg tablet 54 mg PO HS 01/04/22 02/09/22 History ketoconazole 2 % topical cream 1 applic topical DAILY PRN Rash 01/04/22 02/09/22 History pantoprazole 40 mg tablet,delayed 40 mg PO QAM 01/04/22 02/09/22 History release insulin glargine 100 unit/mL 80 unit (0.8 mL) subcut BID high 01/17/22 02/09/22 Rx subcutaneous solution (Lantus blood sugar #150 mL U-100 Insulin) Past Med/Surg History Medical History Anxiety Atrial fibrillation C4 cervical fracture CAD (coronary artery disease) Cardiomyopathy Carotid artery stenosis, asymptomatic CHF (congestive heart failure) Chronic kidney disease, stage III (moderate) Depression DM type 2 (diabetes mellitus, type 2) Dysphagia Gastroparesis GERD (gastroesophageal reflux disease) Hearing deficit History of traumatic brain injury Hyperlipidemia Hypertension ICD (implantable cardioverter-defibrillator) in place Insomnia LBBB (left bundle branch block) PAD (peripheral artery disease) Peripheral neuropathy Poor historian Situational depression Sleep apnea Spinal stenosis Subdural hematoma Venous insufficiency Surgical History History of anesthesia reaction History of back surgery History of cardiac cath History of cataract surgery History of cholecystectomy History of colonoscopy History of knee replacement Hx of angioplasty Hx of CABG S/P epidural steroid injection S/P ICD (internal cardiac defibrillator) procedure Family History Daughter Family history of reaction to anesthesia Sister Cancer Father Family history of diabetes mellitus Grandmother (Maternal) Family history of diabetes mellitus Other No significant family history Denies family history of Ovarian cancer Prostate cancer Coronary heart disease Breast cancer Colorectal cancer Social History Smoking Status: Unknown if ever smoked Tobacco Type: Cigarettes Age Started Using Tobacco: 19; Age Quit Using Tobacco: 49; packs per day: 2; Second Hand Exposure: Yes (SPOUSE SMOKES (OUTSIDE)); Hx Alcohol Use: No Hx Substance Use: No Preferred Language: Spanish Communication Ability: Effective Visual Impairment: Limited Hearing Ability: Hard of Hearing Salvage Cutter Required: No Beliefs That Will Affect Care: None marital status: Current Living Situation: Spouse current occupational status: retired 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 How many Children do You have: 6 Feels Safe at Home: Yes Childhood Exposure to Second-Hand Smoke: Yes caffeine: No during the past year weight has: remained stable Dental Care, Regularly: Yes Physical Activity Frequency: Does not Exercise Seatbelt Use: never Sunscreen Use: No Assistive Devices: Cane, Denture - Upper, Glasses and Walker Review of Systems Review of Systems: The patient denies chest pain, palpitations, cough, lower extremity swelling, sore throat, fevers, chills, sweats, fatigue, nausea, vomiting, diarrhea , constipation, abdominal pain, pelvic pain, blood in urine or stool, dysuria, lightheadedness, dizziness, headache, memory loss, loss of consciousness, rash, abnormal bruising or bleeding, focal weakness, numbness or tingling in arms or legs, neck pain, or night sweats. The review of systems is otherwise negative other than for that already noted above, and at least 10 systems have been reviewed. Physical Exam Physical Exam: The patient is awake, alert and oriented 3, well developed and well nourished, normocephalic and atraumatic, lying in bed and in no acute distress. HEENT--PERRL, EOMI, mucous membranes and oropharynx mildly dry. Neck--supple. No JVD. No bruits. Thyroid normal, trachea midline, no adenopathy. Heart--normal S1 and S2. No murmurs, rubs or gallops. Lungs--clear bilaterally, no respiratory distress, no accessory muscle use. Abdomen--normal bowel sounds and soft. Nontender. Nondistended. Obese. Extremities--no cyanosis or clubbing. Right lower extremity 1+ pitting edema Dermatologic--normal skin turgor, normal color, no abnormal lymph nodes. A few mild surface abrasions on right anterior tibial surface Neurologic--cranial nerves II through XII grossly intact. Rheumatologic--normal range of motion. Psychiatric--normal affect. Results & Data Results & Data ([facility]) Vital Signs (Past 12 Hours) Vital Signs Temp Pulse Resp BP Pulse Ox O2 Del Method O2 Flow Rate 03/10/22 02:01 85 19 119/65 95 03/10/22 01:43 99 H 29 H 148/69 H 95 03/09/22 23:11 86 L Nasal Cannula 2 03/10/22 00:55 99 H 19 154/82 H 95 2 03/10/22 00:58 95 2 03/09/22 23:10 37.5 C 101 H 19 110/66 87 L Room Air 0 Laboratory Results Laboratory Results WBC 19.59 K/ul (4.8-10.8) H 03/09/22 23:40 RBC 4.18 M/uL (4.63-6.08) L 03/09/22 23:40 Hgb 13.0 g/dl (14.0-18.0) L 03/09/22 23:40 Hct 39.7 % (40.1-51.0) L 03/09/22 23:40 MCV 95.0 fL (80.0-100.0) 03/09/22 23:40 MCH 31.1 pg (25.0-34.0) 03/09/22 23:40 MCHC 32.7 g/dL (32.0-36.0) 03/09/22 23:40 RDW Std Deviation 53.5 fL (36.4-46.3) H 03/09/22 23:40 RDW Coeff of Paulo 15.4 % (11.5-14.5) H 03/09/22 23:40 Plt Count 353 K/uL (130-400) 03/09/22 23:40 MPV 10.9 fL (9.4-12.4) 03/09/22 23:40 Immature Gran % (Auto) 0.5 % 03/09/22 23:40 Neut % (Auto) 86.3 % 03/09/22 23:40 Lymph % (Auto) 5.5 % 03/09/22 23:40 Tama % (Auto) 7.2 % 03/09/22 23:40 Eos % (Auto) 0.2 % 03/09/22 23:40 Baso % (Auto) 0.3 % 03/09/22 23:40 Neut # (Auto) 16.91 K/uL (1.4-6.5) H 03/09/22 23:40 Lymph # (Auto) 1.08 K/uL (1.2-3.4) L 03/09/22 23:40 Tama # (Auto) 1.41 K/uL (0.24-0.82) H 03/09/22 23:40 Eos # (Auto) 0.03 K/uL (0-0.50) 03/09/22 23:40 Baso # (Auto) 0.06 K/uL (0-0.2) 03/09/22 23:40 Immature Gran # (Auto) 0.10 K/uL (0.00-0.02) H 03/09/22 23:40 PT 11.1 Seconds (9.0-12.0) 03/09/22 23:40 INR 1.0 (0.9-1.1) 03/09/22 23:40 APTT 28.8 Seconds (21.0-31.0) 03/09/22 23:40 PTT Ratio 1.0 03/09/22 23:40 Sodium 133 mmol/L (136-145) L 03/09/22 23:40 Potassium 4.5 mmol/L (3.5-5.1) 03/09/22 23:40 Chloride 94 mmol/L (98-107) L 03/09/22 23:40 Carbon Dioxide 31 mmol/L (21-32) 03/09/22 23:40 Anion Gap 8 (3-11) 03/09/22 23:40 BUN 37 mg/dl (6-23) H 03/09/22 23:40 Creatinine 1.92 mg/dl (0.6-1.4) H 03/09/22 23:40 Est Cr Clr Drug Dosing Not Reportable 03/09/22 23:40 Est GFR ( Amer) 36.8 ml/min 03/09/22 23:40 Est GFR (Non-Af Amer) 31.7 ml/min 03/09/22 23:40 BUN/Creatinine Ratio 19.3 (10-20) 03/09/22 23:40 Glucose 224 mg/dl (70-99(Fasting)) H 03/09/22 23:40 POC Glucose 229 mg/dl (70-99) H 03/09/22 22:59 Lactate 1.7 mmol/L (0.4-2.0) 03/09/22 23:40 Calcium 9.7 mg/dl (8.5-10.1) 03/09/22 23:40 Magnesium 1.8 mg/dl (1.7-2.4) 03/09/22 23:40 Total Bilirubin 0.8 mg/dl (0.2-1.0) 03/09/22 23:40 AST 9 U/L (13-39) L 03/09/22 23:40 ALT 6 U/L (7-52) L 03/09/22 23:40 Alkaline Phosphatase 51 U/L (34-104) 03/09/22 23:40 Total Protein 7.7 gm/dl (6.0-8.3) 03/09/22 23:40 Albumin 4.1 gm/dl (3.4-5.0) 03/09/22 23:40 Globulin 3.6 gm/dl (2.5-4.0) 03/09/22 23:40 Albumin/Globulin Ratio 1.1 (0.9-2) 03/09/22 23:40 Urine Color Yellow 03/10/22 01:30 Urine Appearance Clear (Clear) 03/10/22 01:30 Urine pH 6.5 (4.5-7.5) 03/10/22 01:30 Ur Specific [place] 1.019 (1.000-1.030) 03/10/22 01:30 Urine Protein 1+ (Negative) H 03/10/22 01:30 Urine Glucose (UA) 2+ (Negative) H 03/10/22 01:30 Urine Ketones Negative (Negative) 03/10/22 01:30 Urine Blood Negative (Negative) 03/10/22 01:30 Urine Nitrite Negative (Negative) 03/10/22 01:30 Urine Bilirubin Negative (Negative) 03/10/22 01:30 Urine Urobilinogen Negative (Negative) 03/10/22 01:30 Ur Leukocyte Esterase Negative (Negative) 03/10/22 01:30 Urine WBC (Auto) 0 /hpf (0-5) 03/10/22 01:30 Urine RBC (Auto) 0-4 /hpf (0-4) 03/10/22 01:30 U Hyaline Cast (Auto) 1-5 /lpf (0-5) 03/10/22 01:30 U Epithel Cells (Auto) 10-20 /lpf (0-5) H 03/10/22 01:30 Urine Bacteria (Auto) Negative (Negative) 03/10/22 01:30 SARS-CoV-2, RNA, NAAT NEGATIVE (NEGATIVE) 03/09/22 23:[address] head negative for acute event Code Status & VTE Plan Code Status DNR/DNI VTE Prophylaxis Plan VTE Prophylaxis will be ordered: Yes PG Care Time/CCT Total # of Minutes Spent Total Time Spent with Patient: Total time spent is greater than 50% in coordination of care (as documented) at patient's floor/unit and/or counseling patient: Coding Level of Care Code 33995 Initial Inpt Care Lvl 3 Diagnoses Sepsis due to urinary tract infection A41.9; N39.0 Acute confusion R41.0 Controlled type 2 diabetes mellitus with kidney complication, with long-term current use of insulin E11.29; Z79.4 CAD, multiple vessel I25.10 Cardiomyopathy I42.9 Permanent atrial fibrillation I48.2 Diabetic peripheral neuropathy associated with type 2 diabetes mellitus E11.42 Lumbar disc disease M51.9 Urinary incontinence R32 Hypertension I10 Hypertension type: essential hypertension Diabetic peripheral neuropathy E11.42 (1) Hypertension Hypertension type: essential hypertension Qualified Code(s): I10 - Essential (primary) hypertension
[2022-03-10] MEDS ORDERED: ACETAMINOPHEN 325 MG TAB PO PRN (05:15)
[2022-03-10] MEDS ORDERED: GLUCAGON FOR INJ 1 MG VIAL SQ PRN (05:15)
[2022-03-10] MEDS ORDERED: DEXTROSE 50% 50 ML SYRINGE IV PRN (05:15)
[2022-03-10] MEDS ORDERED: GLUCOSE 40% GEL 15 GM TUBE PO PRN (05:15)
[2022-03-10] MEDS ORDERED: NITROGLYCERIN SL 0.4 MG/TAB TAB SL PRN (05:15)
[2022-03-10] MEDS ORDERED: GLUCOSE 10 TAB/TUBE PO PRN (05:15)
[2022-03-10] MEDS ORDERED: ONDANSETRON INJ 2 MG/ML 2 ML VIAL IV PRN (05:15)
[2022-03-10] MEDS ORDERED: CARBOHYDRATES FOR HYPOGLYCEMIA PO PRN (05:15)
[2022-03-10] MEDS ORDERED: Patient's HEIGHT &/or WEIGHT Needed SCH (05:30)
[2022-03-10] MEDS ORDERED: PIPERACILLIN/TAZOBACTAM 4.5 GM in DEXTROSE 5% 100 ML IV ONE (06:30)
--- NOTE | 2022-03-10 07:26 | CT Scan Report ---
CT SCAN OF THE BRAIN WITHOUT IV CONTRAST CLINICAL HISTORY: Change in mental status. COMPARISON STUDY: CT of the brain dated 09/20/2019. TECHNIQUE: Unenhanced axial CT scan of the brain is performed from the vertex to the skull base. A do se lowering technique was utilized adhering to the principles of ALARA. The Examination is degraded b y motion artifact. The patient was scanned twice in an effort to improve image quality. CT DOSE: 1382.10 mGy.cm FINDINGS: Brain parenchyma: There is age-related involutional change noting mild subcortical and periventricula r microangiopathic disease. There is no hemorrhage, mass effect, or evidence of acute territorial isc hemia by CT criteria. Kumar-white matter differentiation is preserved. No extra-axial fluid collection is seen. Ventricles, sulci, cisterns: Prominent secondary to involutional change. Intracranial vasculature: There is atherosclerotic calcification of the cavernous carotid and vertebr al artery. Calvarium: Unremarkable. Sinuses and mastoids: The visualized paranasal sinuses are clear. The mastoid air cells are well pneu matized. Orbits: The bony orbits are grossly intact. There are bilateral ocular lens implants. IMPRESSION: There is no hemorrhage, mass effect, or evidence of acute territorial ischemia by CT danielat lauryn noting a motion degraded examination. ACT 112: Negative or not required by law. Electronically signed by: Hiram Leal M.D. 03/10/2022 7:24 AM
[2022-03-10] MEDS: INSULIN ASPART PER UNIT SC SCH ×4 (08:20→21:13)
[2022-03-10] MEDS: PANTOprazole 40 MG TAB PO SCH (08:21)
[2022-03-10] MEDS: ASPIRIN 81 MG ECTAB PO SCH (08:21)
[2022-03-10] MEDS: BUMETANIDE 1 MG TAB PO SCH ×2 (08:21→16:30)
[2022-03-10] MEDS: SPIRONOLACTONE 25 MG TAB PO SCH ×2 (08:21→20:38)
[2022-03-10] MEDS: DULoxetine HCL 60 MG CAP PO SCH (08:21)
[2022-03-10] MEDS: GABAPENTIN 300 MG CAP PO SCH ×2 (08:21→20:38)
[2022-03-10] MEDS: METOPROLOL SUCC 50MG EXT REL TAB PO SCH (08:21)
[2022-03-10] MEDS: CHOLECALCIFEROL 1,000 UNITS 25 MCG TAB PO SCH (08:21)
[2022-03-10] MEDS: LANTUS PER UNIT CHARGE SQ SCH ×2 (08:30→21:16)
--- NOTE | 2022-03-10 08:38 | XRay Report ---
XR chest 1V portable CLINICAL HISTORY: SEPSIS TECHNIQUE: Single frontal radiograph of the chest was obtained. Comparison: Comparison is made to chest radiograph 01/11/2022 FINDINGS: Lines and tubes are stable. Cardiomegaly is noted. There is prominence and cephalization of the vascu lature with Bartolo B lines seen. No evidence of pleural effusion or pneumothorax. IMPRESSION: Moderate pulmonary edema, new from prior exam. No focal airspace opacity to suggest pneumonia. ACT 112: Negative or not required by law. Electronically signed by: Frantz Newsome M.D. 03/10/2022 8:35 AM
--- NOTE | 2022-03-10 13:03 | Hospitalist Progress Note ---
Date of Service March 10, 2022 Assessment & Plan (1) Sepsis due to urinary tract infection: Plan: Sepsis due to urinary tract infection/urinary incontinence Given ceftriaxone 2 g IV from the ED Continue empiric Zosyn, narrow pending UCx, BCx results Does appear to be improving- afebrile, hemodynamically stable (2) Acute confusion: Plan: Acute confusion Patient does appear to have some underlying dementia, and has been more agitated with family recently Likely secondary to sepsis due to UTI Follow clinical examination Patient is a bit agitated, but does redirect quickly Mentation appears to be improving, may be at baseline now (3) Controlled type 2 diabetes mellitus with kidney complication, with long-term current use of insulin: Plan: He has had decreased oral intake over the past few days Lantus 40 units subcu twice daily Placed on Accu-Cheks before meals and at bedtime with NovoLog coverage per scale Hold standing orders for insulin aspart 75 units subcu 4 times daily (4) CAD, multiple vessel: Plan: CAD/hypertension/cardiomyopathy/permanent atrial fibrillation- Continue aspirin, bumetanide, lisinopril, spironolactone and metoprolol succinate (5) Cardiomyopathy: Plan: See above Continue diuresis with home Bumex, spironolactone for moderate pulmonary edema (6) Permanent atrial fibrillation: Plan: Continue Xarelto Does appear rate controlled at this time (7) Diabetic peripheral neuropathy associated with type 2 diabetes mellitus: Plan: Continue gabapentin (8) Lumbar disc disease: Plan: Xarelto was being held for possible injection tomorrow with Dr. Mejía Continue Xarelto, and arrangements made to be made another time for possible injection (9) Urinary incontinence: Plan: See above (10) Hypertension: Plan: See above (11) Diabetic peripheral neuropathy: Plan: Continue duloxetine Admission and Anticipated Discharge Date Admission Date: March 10, 2022 Supervising Physician Co-Signing Physician Notes I personally examined the patient and verified all bell points of history and exam, discussed case, and agree with decision making with Dr Cox. Feeling good overall. No pain. Breathing well. Eating well. Family notes he is pretty weak and thinks he might need rehab. Vitals noted, in general he is awake and alert pleasant no distress. HEENT normocephalic atraumatic mucous membranes moist. Breathing unlabored no accessory muscle use. Cardio is regular lungs are clear. Abdomen soft nondis tended nontender no masses organomegaly. UTI/sepsisappears to be improving. Continue current antibiotics pending cultures, unfortunately urine culture was not sent prior to antibiotics. WeaknessPT/OT eval and treat, likely to need rehab based on family observation and knowing his baseline. DVT prophylaxisXarelto Subjective No acute events overnight. Pt states he feels fine, denies fever, chills, pain or dyspnea. No acute complaints, though he does want to go home. Review of Systems Review of Systems: Per subjective Physical Exam Physical Exam: The patient is awake, alert and oriented 3, well developed and well nourished, normocephalic and atraumatic, lying in bed and in no acute distress. HEENT--PERRL, EOMI, mucous membranes and oropharynx mildly dry. Neck--supple. No JVD. No bruits. Thyroid normal, trachea midline, no adenopathy. Heart--irregular, normal rate, normal S1 and S2. No murmurs, rubs or gallops. Lungs--largely clear bilaterally with faint crackles at bases, no respiratory distress, no accessory muscle use. Abdomen--normal bowel sounds and soft. Nontender. Nondistended. Obese. Extremities--no cyanosis or clubbing. Right lower extremity 1+ pitting edema Dermatologic--normal skin turgor, normal color, no abnormal lymph nodes. A few mild surface abrasions on right anterior tibial surface Neurologic--cranial nerves II through XII grossly intact. Results & Data Results & Data ([facility]) Vital Signs (Past 12 Hours) Vital Signs Temp Pulse Pulse Resp BP BP Pulse Ox 03/10/22 11:13 36.5 C 63 20 124/61 97 03/10/22 08:00 03/10/22 07:35 36.4 C L 72 20 107/46 L 92 03/10/22 07:00 69 03/10/22 04:55 75 03/10/22 04:45 03/10/22 04:45 36.9 C 85 18 118/60 94 03/10/22 02:01 85 19 119/65 95 03/10/22 01:43 99 H 29 H 148/69 H 95 O2 Del Method O2 Flow Rate 03/10/22 11:13 Nasal Cannula 2 03/10/22 08:00 Nasal Cannula 2 03/10/22 07:35 Nasal Cannula 2.5 03/10/22 07:00 03/10/22 04:55 03/10/22 04:45 Nasal Cannula 2 03/10/22 04:45 Nasal Cannula 2 03/10/22 02:01 03/10/22 01:43 Resident Activity Tracking Resident Involvement: Resident Care Provided Care Provided: Adult Hospital Medicine (1) Hypertension Hypertension type: essential hypertension Qualified Code(s): I10 - Essential (primary) hypertension
[2022-03-10] MEDS: PIPERACILLIN/TAZOBACTAM 3.375 GM in DEXTROSE 5% 100 ML IV SCH ×2 (13:12→20:38)
[2022-03-10] MEDS: RIVAROXABAN 15 MG TAB PO SCH (16:58)
--- NOTE | 2022-03-10 17:46 | Electrocardiogram Report ---
Test Reason : Blood Pressure : / mmHG Vent. Rate : 097 BPM Atrial Rate : 090 BPM P-R Int : 000 ms QRS Dur : 168 ms QT Int : 412 ms P-R-T Axes : 000 -33 127 degrees QTc Int : 523 ms Poor data quality, interpretation may be adversely affected Atrial fibrillation with premature ventricular or aberrantly conducted complexes Left axis deviation Left bundle branch block Abnormal ECG When compared with ECG of 11-JAN-2022 13:58, No significant change was found Confirmed by Humza Guerra ([id number]) on 03/10/2022 5:46:43 PM Referred By: REFERRED SELF Confirmed By:Alberto Guerra
--- NOTE | 2022-03-10 17:52 | Electrocardiogram Report ---
Test Reason : Blood Pressure : / mmHG Vent. Rate : 075 BPM Atrial Rate : 060 BPM P-R Int : 000 ms QRS Dur : 168 ms QT Int : 448 ms P-R-T Axes : 000 -31 117 degrees QTc Int : 500 ms Atrial fibrillation Left axis deviation Left bundle branch block Abnormal ECG When compared with ECG of 09-MAR-2022 23:00, (unconfirmed) No significant change was found Confirmed by Humza Guerra ([id number]) on 03/10/2022 5:51:35 PM Referred By: REFERRED SELF Confirmed By:Alberto Guerra
[2022-03-10] MEDS ORDERED: MONTELUKAST SODIUM 10 MG TABLET PO SCH (21:00)
[2022-03-10] MEDS ORDERED: FENOFIBRATE NANOCRYSTALLIZED 48 MG TABLET PO SCH (21:00)
[2022-03-10] MEDS ORDERED: ATORVASTATIN 40 MG TAB PO SCH (21:00)
--- NOTE | 2022-03-10 21:57 | Billing Data ---
Date of Service March 10, 2022 Coding Level of Care Code 43404 Subseq Hosp Care Lvl 3
[2022-03-11] MEDS: PIPERACILLIN/TAZOBACTAM 3.375 GM in DEXTROSE 5% 100 ML IV SCH ×2 (04:57→13:15)
--- NOTE | 2022-03-11 06:23 | Communication Note ---
Date of Service: March 11, 2022 Night resident note RN notified me that patient reported difficulty swallowing liquids overnight I made patient NPO and ordered a speech consult Everton Long PGY-3 Resident Activity Tracking Resident Involvement: Resident Care Provided and Instructor Decorating Coverage Note Care Provided: Adult Hospital Medicine
[2022-03-11 06:49] LABS: Basophils # (auto) 0.06 K/uL (0-0.2); Basophils % (auto) 0.5 %; Eosinophils # (auto) 0.27 K/uL (0-0.50); Eosinophils % (auto) 2.1 %; Hematocrit (blood only) 38.7 % (40.1-51.0); Immature Granulocytes # (auto) 0.06 K/uL (0.00-0.02); Immature Granulocytes % (auto) 0.5 %; Lymphocytes # (auto) 1.67 K/uL (1.2-3.4); Lymphocytes % (auto) 12.9 %; Mean Corpuscular Hgb Conc 33.6 g/dL (32.0-36.0); Mean Corpuscular Volume 92.4 fL (80.0-100.0); Mean Platelet Volume 10.6 fL (9.4-12.4); Monocytes # (auto) 1.44 K/uL (0.24-0.82); Monocytes % (auto) 11.1 %; Neutrophils # (auto) 9.44 K/uL (1.4-6.5); Neutrophils % (auto) 72.9 %; Platelet Count 315 K/uL (130-400); RDW Coefficient of Variation 15.1 % (11.5-14.5); RDW Standard Deviation 51.5 fL (36.4-46.3); Red Blood Count 4.19 M/uL (4.63-6.08); White Blood Count 12.94 K/ul (4.8-10.8)
[2022-03-11 07:11] LABS: INR 1.2 (0.9-1.1); Partial Thromboplastin Ratio 1.3; Partial Thromboplastin Time 36.2 Seconds (21.0-31.0); Prothrombin Time 12.7 Seconds (9.0-12.0)
[2022-03-11 07:22] LABS: Albumin Globulin Ratio 1.1 (0.9-2); Albumin Level 3.8 gm/dl (3.4-5.0); BUN Creatinine Ratio 18.3 (10-20); Bilirubin,Total 0.8 mg/dl (0.2-1.0); Calcium 9.9 mg/dl (8.5-10.1); Creatinine Clr Calc Pharmacy 30.8 ml/min; Est GFR (African American) 35.6 ml/min; Est GFR (Non-African American) 30.7 ml/min; Globulin 3.4 gm/dl (2.5-4.0); Potassium 4.2 mmol/L (3.5-5.1); Total Protein 7.2 gm/dl (6.0-8.3)
[2022-03-11 07:31] LABS: Estimated Average Glucose 183 mg/dl
[2022-03-11] MEDS: LANTUS PER UNIT CHARGE SQ SCH (09:03)
[2022-03-11] MEDS: INSULIN ASPART PER UNIT SC SCH ×3 (09:03→17:31)
[2022-03-11] MEDS: GABAPENTIN 300 MG CAP PO SCH (11:30)
[2022-03-11] MEDS: METOPROLOL SUCC 50MG EXT REL TAB PO SCH (11:32)
[2022-03-11] MEDS: PANTOprazole 40 MG TAB PO SCH (11:32)
[2022-03-11] MEDS: ASPIRIN 81 MG ECTAB PO SCH (11:32)
[2022-03-11] MEDS: DULoxetine HCL 60 MG CAP PO SCH (11:32)
[2022-03-11] MEDS: SPIRONOLACTONE 25 MG TAB PO SCH (11:33)
[2022-03-11] MEDS: BUMETANIDE 1 MG TAB PO SCH ×2 (11:33→17:20)
[2022-03-11] MEDS: CHOLECALCIFEROL 1,000 UNITS 25 MCG TAB PO SCH (11:33)
--- NOTE | 2022-03-11 15:15 | Discharge Summary ---
Date of Service March 11, 2022 Admission HPI Per Admitting Provider The patient is a 81-year-old male with a past medical history including renal mass, dysthymia, episode of type II, ELIZABETH on CKD, cardiomyopathy, CAD multivessel, V. tach, permanent A. fib, chronic diastolic CHF, obesity, urinary incontinence, urinary tract infection, dyslipidemia, hypertension, scrotal edema, peripheral neuropathy, chronic HFrEF, gastroparesis, situational depression, and subdural hematoma. Patient is presently off of Xarelto as he was possibly getting a back [facility]. Family reports he became more confused this evening, and urinated all over the bathroom floor. Principal Diagnosis Urinary tract infection without bacteremia Discharge Exam Constitutional WD/WN, vitals as above Eyes + anicteric sclerae Neck normal visual inspection Respiratory normal respiratory effort, lungs clear to auscultation Cardiovascular RRR, no murmur, no edema Gastrointestinal (Abdomen) normal bowel sounds, soft, nontender, no hepatosplenomegaly Musculoskeletal Head/Neck/Chest: normocephalic and head atraumatic Skin no rashes, warm and dry Neurologic moves all extremities Psychiatric Orientation: alert, oriented to person and cooperative Eye Contact: good eye contact Affect: euthymic affect Discharge Data Allergies Allergy/AdvReac Type Severity Reaction Status Date / Time No Known Drug Allergies Allergy Unknown NKDA Verified 02/09/22 11:47 Consultations 03/10/22 01:52 ED Decision to Admit Stat Ordered Studies 03/09/22 23:05 CT head/brain wo con Urgent Hospital Course (1) Sepsis due to urinary tract infection: Sepsis due to urinary tract infection/urinary incontinence Given ceftriaxone 2 g IV from the ED Given empiric Zosyn in the hospital, blood cultures returned negative Does appear to be improving- afebrile, hemodynamically stable Given that the most likely agent is E. coli, will send patient with third GEN cephalosporin given age i.e. cefdinir for 10 days total. 300 mg twice daily (2) Acute confusion: Acute confusion Patient does appear to have some underlying dementia, and has been more agitated with family recently Likely secondary to sepsis due to UTI Follow clinical examination Mentation appeared to be improving and may be at baseline now (3) Controlled type 2 diabetes mellitus with kidney complication, with long-term current use of insulin: He has had decreased oral intake over the past few days Lantus 40 units subcu twice daily Placed on Accu-Cheks before meals and at bedtime with NovoLog coverage per scale Hold standing orders for insulin aspart 75 units subcu 4 times daily Return to home regimen on discharge (4) CAD, multiple vessel: CAD/hypertension/cardiomyopathy/permanent atrial fibrillation- Continue aspirin, bumetanide, lisinopril, spironolactone and metoprolol succinate (5) Cardiomyopathy: See above Continue diuresis with home Bumex, spironolactone for moderate pulmonary edema (6) Permanent atrial fibrillation: Continue Xarelto Does appear rate controlled at this time (7) Diabetic peripheral neuropathy associated with type 2 diabetes mellitus: Continue gabapentin (8) Lumbar disc disease: Xarelto was being held for possible injection tomorrow with Dr. Mejía Continue Xarelto, and arrangements made to be made another time for possible injection (9) Urinary incontinence: See above (10) Hypertension: See above (11) Diabetic peripheral neuropathy: Continue duloxetine Total Time Total Time Spent Total Time Spent (In Minutes): 30 Discharge Plan Discharge Items Patient Disposition: Home - Self-Care Reason For Visit: SEPSIS DUE TO UTI, CONFUSION Discharge Diagnosis: Complicated urinary tract infection Activity: Per Instructions section Non-emergency contact: Primary Care Provider Call non-emergency contact if: you have any medication questions Follow-up/Referrals: Tere Narayan MD [Primary Care Provider] - Diet: Regular Fluids: 1000ml (4 cups) Addtl Attending Provider Instructions: You were seen in the hospital for evaluation of worsening confusion and an episode of incontinence. For this reason we are going to treat you for urinary tract infection given your history of UTIs and incontinence. We gave you empiric antibiotic treatment while you are here and we transitioned you to oral antibiotics which she will take for 10 days. This medication is to be taken morning and night. You are covered with antibiotics today and you will start taking them tomorrow. Otherwise it appears that your chronic medical conditions are stable and the does not seem to be a reason for you to remain in the hospital. Is been a pleasure to be a part of your care and we wish you the best in both your health and recovery. If you have worsening symptoms please return to the emergency room for further evaluation. Pending Studies at Discharge: No Stand-Alone Forms: My [employer], Smoking Cessation Medications and DC Order Prescriptions: New cefdinir 300 mg capsule 300 mg PO BID 9 Days Qty: 18 0RF Continued lisinopril 5 mg tablet 5 mg PO QAM Qty: 90 3RF (DME) insulin syringe-needle U-100 [BD Insulin Syringe Ultra-Fine] 1 mL 31 gauge x 5/16 syringe See Rx Instructions .ROUTE .MEDSUPPLY Qty: 600 3RF Rx Instructions: use 6 x daily to inject insulin atorvastatin 80 mg tablet 80 mg PO HS Qty: 90 3RF gabapentin 300 mg capsule 600 mg PO BID Qty: 360 3RF Xarelto 15 mg tablet 15 mg PO QPM Qty: 90 3RF spironolactone 25 mg tablet 25 mg PO BID Qty: 180 3RF Hold Instructions: Hyperkalemia duloxetine 60 mg capsule,delayed release(DR/EC) 60 mg PO QAM Qty: 90 3RF metoprolol succinate 100 mg tablet extended release 24 hr 100 mg PO QAM Qty: 90 3RF montelukast 10 mg tablet 10 mg PO HS Qty: 90 3RF bumetanide 1 mg tablet 1 mg PO BID Qty: 200 3RF Hold Instructions: Pt rpts no RF at pharm - last dose ~ 01/21/21. Now lasix Rx Instructions: take at 8am, and then about 4pm each day. May increase to 2 mg BID for weight gain, SOB, edema. Lantus U-100 Insulin 100 unit/mL solution 80 unit subcut BID Qty: 150 1RF cholecalciferol (vitamin D3) 50 mcg (2,000 unit) capsule 4,000 unit PO QAM (DME) Dexcom G6 Sensor Device See Rx Instructions .ROUTE .MEDSUPPLY Qty: 3 Rx Instructions: As directed (DME) Dexcom G6 Transmitter Device See Rx Instructions .ROUTE .MEDSUPPLY Qty: 1 Rx Instructions: As directed (DME) Dexcom G6 Hospice Care Transitions Coordinator Misc See Rx Instructions .ROUTE .MEDSUPPLY Qty: 1 Rx Instructions: As directed insulin aspart U-100 [Novolog U-100 Insulin aspart] 100 unit/mL solution 75 unit SQ QID Rx Instructions: plus sliding scale (DME) FreeStyle Lite Strips Strip See Rx Instructions .ROUTE .MEDSUPPLY Rx Instructions: TEST 1 TIMES DAILY nitroglycerin [Nitrostat] 0.4 mg tablet, sublingual 0.4 mg Sublingual Q5M PRN (Reason: Chest Pain) Rx Instructions: NEEDED FOR CHEST PAIN : ONE TABLET UNDER THE TONGUE EVERY 5 MINUTES UP TO 3 DOSES. aspirin 81 mg Tablet,Delayed Release (Dr/Ec) 81 mg PO QAM fenofibrate 54 mg tablet 54 mg PO HS pantoprazole 40 mg tablet,delayed release (DR/EC) 40 mg PO QAM ketoconazole 2 % cream 1 applic topical DAILY PRN (Reason: Rash) Discharge Orders: Discharge Order (Routine); Ordered 03/11/22 Ordered By: Travon Rangel/Other Patient Handouts: Managing Type 2 Diabetes, Special Foot Care for Diabetes Admission Data Admit Date/Time: 03/10/22 02:33 Attending Provider: Lazarus Sagastume Admit Provider: Modesto Turpin Primary Care Provider: Tere Narayan Other Providers: Modesto Turpin Other Interventions: Discharge Summary Assessment (RN) Last Done: 03/11/22 16:31 Supervising Physician Co-Signing Physician Notes I personally examined the patient and verified all bell points of history and exam, discussed case, and agree with decision making with Dr Laboy Feeling good overall. would like to go home. Vitals noted, in general he is awake and alert pleasant no distress. HEENT normocephalic atraumatic mucous membranes moist. Breathing unlabored no acce ssory muscle use. Cardio is regular lungs are clear. Abdomen soft nondistended nontender no masses organomegaly. presumed UTI/sepsisimproving. Safe for home on oral antibiotics. WeaknessPT/OT eval and treat, surprisingly, doing quite welldefinitely safe for home. DVT prophylaxisXarelto
[2022-03-11] MEDS: RIVAROXABAN 15 MG TAB PO SCH (17:20)
--- NOTE | 2022-03-11 18:03 | Billing Data ---
Date of Service March 11, 2022 Coding Level of Care Code D/C DAY MANAGEMENT <30 MINS
== END 2022-03-11 18:32 | disposition home health service (06) | DRG 872 ==
LOC: ED 22:50 → 2E 03-10 02:33 → SUATTDRO 03-10 02:33 → INTOOBSV 03-10 02:33 → OBSVTOIN 03-10 02:33 → 2E 03-10 05:17

== ENCOUNTER 2022-04-27 20:03 | Inpatient (IN) ==
[2022-04-27] MEDS ORDERED: VANCOMYCIN HCL 2,500 MG in SODIUM CHLORIDE 0.9% 500 ML IV ONE (20:23)
[2022-04-27] MEDS ORDERED: PIPERACILLIN/TAZOBACTAM 4.5 GM/120 ML BAG IV ONE (20:23)
[2022-04-27] MEDS ORDERED: VANCOMYCIN CONSULT ACTIVE PRN (20:23)
--- NOTE | 2022-04-27 20:36 | Emergency Department Note ---
Impression & Plan Cellulitis of hand, left, Hypoglycemia, Pulmonary edema, Hypoxia ED Provider Note NAME: SANDY VELOZ AGE: 81 SEX: M : 1940 ARRIVES VIA: Ambulance INFORMANT: Patient, EMS ED PROVIDER(S): Vadim Mathis DO CHIEF COMPLAINT: Altered mental status HPI: The patient is an 81-year-old male who presented to the emergency depa rtment for an evaluation of altered mental status. I received signout from the reports developer about the patient. They were concerned about sepsis. The patient was altered and on scene he was noted to have low blood sugar twice. He does take insulin for diabetes. He has an insulin pump. The patient is also being treated for a hand infection. Initially he had a finger infection after cutting his left middle finger but now the swelling has gotten much worse and involves his entire left hand. He notices no nausea or vomiting. He denies having any headache or trauma. He does take blood thinners for history of chronic atrial fibrillation. He has had no changes to his medications. He is on a second antibiotic for this infection and he thinks its doxycycline. He states has been taking his medication especially his antibiotic as prescribed. He denies having any fever. 911 was called by the patient's family. ROS: See above HPI for pertinent positives & negatives. A total of 10 systems reviewed and were otherwise negative. PAST MEDICAL HISTORY: See Below PAST SURGICAL HISTORY: See Below FAMILY HISTORY: See Below SOCIAL HISTORY: See Below HOME MEDICATIONS: See Below ALLERGIES: See Below VITALS: See Below PHYSICAL EXAMINATION: GENERAL: Patient is awake alert in no acute distress patient is resting comfortably and showing no signs of anxiety EYES: The conjunctivae are clear. The pupils are round and reactive. EARS, NOSE, MOUTH AND THROAT: The nose is without any evidence of any deformity. Mucous membranes are moist. Tongue is midline. NECK: The neck is nontender and supple. RESPIRATORY: Normal respiratory effort is noted there is no evidence of wheezing rhonchi or rales CARDIOVASCULAR: Irregular heart sounds were noted auscultation. There is no definite murmur. GASTROINTESTINAL: The abdomen is soft. Abdomen is nontender. MUSCULOSKELETAL/EXTREMITIES: There is no evidence of gross deformity full range of motion is noted in the hips and shoulders. SKIN: There is significant swelling and warmth to the left hand. There is an ulceration to the left distal index finger. There is a small laceration on the dorsum of the left hand. There is also a healing wound on the left middle finger. The patient has significant tenderness to palpation. Pulses are symmetric in both wrist. NEUROLOGIC: Patient is awake alert and oriented x3 MEDICAL DECISION MAKING: The patient is an 81-year-old male who presented to the emergency department with family and ambulance for an evaluation of left hand pain and swelling. The patient's history and physical exam appear to be consistent with worsening cell ulitis of the left hand. The patient has an injury to his left index finger as well as left middle finger. He also has a small laceration on the dorsum of his hand. He was treated with IV antibiotics in emergency department. He was also treated with IV Lasix for presumed pulmonary edema. I discussed the patient's laboratory and radiographic studies with him and his family members. Of note th e patient continued to have worsening respiratory status and his family numbers continue to state that he would not wish to be placed on positive pressure ventilation with endotracheal ovation. [facility] the [facility] have agreed to evaluate the patient in the emergency department for further management and disposition. Triage Nursing notes reviewed. Prior medical records reviewed Vital Signs: reviewed and remarkable for hypoxia. Differential diagnosis: Cellulitis, abscess, MRSA infection, DVT, necrotizing fasciitis, dermatitis, drug eruption, allergic reaction, as well as other pathologies. ER treatment provided: See below Diagnostics interpreted by me: ECG: EKG was obtained in the emergency department. My interpretation is atrial fibrillation at 89 bpm. PVCs were noted. LVH with left bundle branch block was noted. This was compared to a tracing from March 10, 2022. No changes were noted. Cardiac Monitoring: An order was placed for continuous cardiac monitoring. The monitor shows a rate of 93 bpm with atrial fibrillation. Laboratory studies: As stated above and show below. Imaging studies: See below Consultation(s): I discussed this case with Dr. Fowler who [facility] ED COURSE: Procedures: none Critical Care: I have personally spent greater than 40 minutes of critical care time in the direct management of this patient. This includes bedside care, interpretation of diagnostic studies, and testing, discussion with consultants, patient, and family members, and other required patient management activities. This 40 minutes is in excess of all separately billable procedures. Past Med/Surg History Medical History Anxiety Atrial fibrillation Reason for Xarelto Follows with [facility] C4 cervical fracture No surgical intervention. Full ROM. Occurred 2-3 years ago- no current issues CAD (coronary artery disease) S/p RCA PCI in 1991, 1998, and 2004- totaling 5 stents to prox and mid RCA S/p 3 vessel CABG 2008 Cardiomyopathy Carotid artery stenosis, asymptomatic No hemodynamically significant stenosis per 2019 CTA of neck to ICAs bilaterally CHF (congestive heart failure) Chronic kidney disease, stage III (moderate) Depression DM type 2 (diabetes mellitus, type 2) IDDM Dysphagia Occasional (per ) Gastroparesis GERD (gastroesophageal reflux disease) Well controlled and stable Hearing deficit [facility] History of traumatic brain injury 2018 (after fall down stairs) > subdural hematoma resolved without surgical intervention, no residual issues Hyperlipidemia Hypertension ICD (implantable cardioverter-defibrillator) in place [employer]. Implanted ~2017 for sustained VT Insomnia LBBB (left bundle branch block) Chronic dating back to at least 07/2019 EKG per charts PAD (peripheral artery disease) H/o of right SFA/TP trunk/PT angioplasty at [facility] (2011) Peripheral neuropathy Poor historian Sensorineural hearing loss of both ears Situational depression Sleep apnea Refuses device per records Spinal stenosis Subdural hematoma 2018 (after fall down stairs) > subdural hematoma resolved without surgical intervention, no residual issues Venous insufficiency Surgical History History of anesthesia reaction Combative with emergence History of back surgery History of cardiac cath Multiple (hx stents) History of cataract surgery R/L History of cholecystectomy History of colonoscopy History of knee replacement Left Hx of angioplasty Hx of CABG CABG x3 (2008) S/P epidural steroid injection S/P ICD (internal cardiac defibrillator) procedure Family History Daughter Family history of reaction to anesthesia PONV Sister Cancer Father Family history of diabetes mellitus Grandmother (Maternal) Family history of diabetes mellitus Other No significant family history Denies family history of Ovarian cancer Prostate cancer Coronary heart disease Breast cancer Colorectal cancer Social History Smoking Status: Former smoker Tobacco Type: Cigarettes Age Started Using Tobacco: 19; Age Quit Using Tobacco: 49; packs per day: 2; Second Hand Exposure: Yes (SPOUSE SMOKES (OUTSIDE)); Hx Alcohol Use: No Hx Substance Use: No Preferred Language: Cuban Communication Ability: Effective Visual Impairment: Limited Hearing Ability: Hard of Hearing Supervisor Tree Trimming Required: No Beliefs That Will Affect Care: None marital status: Current Living Situation: Spouse current occupational status: retired 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 How many Children do You have: 6 Feels Safe at Home: Yes Childhood Exposure to Second-Hand Smoke: Yes caffeine: No during the past year weight has: remained stable Dental Care, Regularly: Yes Physical Activity Frequency: Does not Exercise Seatbelt Use: never Sunscreen Use: No Assistive Devices: Cane and Walker Allergies Allergies Allergy/AdvReac Type Severity Reaction Status Date / Time No Known Drug Allergies Allergy Unknown NKDA Verified 04/25/22 13:36 Home Meds Home Medications Medication Instructions Recorded Confirmed aspirin 81 mg tablet,delayed 81 mg PO QAM 06/04/18 04/27/22 release nitroglycerin 0.4 mg sublingual 0.4 mg sublingual Q5M PRN Chest 02/25/19 04/27/22 tablet (Nitrostat) Pain cholecalciferol (vitamin D3) 50 4,000 unit PO QAM 04/22/20 04/27/22 mcg (2,000 unit) capsule blood-glucose meter,continuous #1 ea 11/10/20 04/25/22 (Dexcom G6 Log Truck Driver misc) blood-glucose sensor (Dexcom G6 #3 ea 11/10/20 04/25/22 Sensor device) blood-glucose transmitter (Dexcom #1 ea 11/10/20 04/25/22 G6 Transmitter device) blood sugar diagnostic (FreeStyle 12/01/21 04/25/22 Lite Strips) fenofibrate 54 mg tablet 54 mg PO HS 01/04/22 04/27/22 ketoconazole 2 % topical cream 1 applic topical DAILY PRN Rash 01/04/22 04/27/22 empagliflozin 25 mg tablet 25 mg PO DAILY 04/27/22 04/27/22 (Jardiance) Previous Rx's Medication Instructions Recorded gabapentin 300 mg capsule 600 mg PO BID #360 caps 11/12/21 rivaroxaban 15 mg tablet (Xarelto) 15 mg PO QPM #90 tabs 05/26/21 spironolactone 25 mg tablet 25 mg PO BID #180 tabs 06/11/21 duloxetine 60 mg capsule,delayed 60 mg PO QAM #90 caps 08/25/21 release metoprolol succinate 100 mg 100 mg PO QAM #90 tabs 08/25/21 tablet,extended release 24 hr montelukast 10 mg tablet 10 mg PO HS #90 tabs 09/10/21 bumetanide 1 mg tablet 1 mg PO BID #200 tabs 11/23/21 insulin glargine 100 unit/mL 80 unit (0.8 mL) subcut BID high 01/17/22 subcutaneous solution (Lantus blood sugar #150 mL U-100 Insulin) atorvastatin 80 mg tablet 80 mg PO HS #90 tabs 03/19/22 pantoprazole 20 mg tablet,delayed 20 mg PO QAM #90 tabs 03/19/22 release insulin syringe-needle U-100 1 mL #600 ea 04/07/22 31 gauge x 5/16" (BD Insulin Syringe Ultra-Fine) insulin aspart U-100 100 unit/mL See Rx Instructions .Route 04/19/22 subcutaneous solution (Novolog .COMPLEX #280 mL U-100 Insulin aspart) lisinopril 5 mg tablet 5 mg PO QAM #90 tabs 04/20/22 doxycycline hyclate 100 mg tablet 100 mg PO BID 10 days #20 tabs 04/25/22 Results & Data (ED) Vital Signs Vital Signs - 24 hr 04/27/22 20:12 04/27/22 20:12 04/27/22 20:22 Temperature 37.1 C Temperature Source Oral Pulse Rate 88 87 Pulse Rate [Apical] Pulse Rhythm Regular Irregular Pulse Rhythm [Apical] Pulse Strength Normal Pulse Strength [Apical] Respiratory Rate 20 20 Respiratory Effort / Characteristics Non-Labored Respiratory Depth Normal Respiratory Pattern Regular Blood Pressure 134/64 Blood Pressure [Right Arm] Blood Pressure Mean 87 Blood Pressure Mean [Right Arm] Blood Pressure Position Lying Blood Pressure Position [Right Arm] Pulse Oximetry 97 97 97 Oxygen Delivery Method Nasal Cannula Nasal Cannula Nasal Cannula Oxygen Flow Rate 3 3 2 Sepsis Recent Fever Within 48 Hours No Sepsis New/Unexplained Change in Mental Status No Sepsis Action Taken by Nursing No Action Required 04/27/22 22:00 04/27/22 22:15 04/27/22 23:00 Temperature Temperature Source Pulse Rate Pulse Rate [Apical] 102 H 100 H 88 Pulse Rhythm Pulse Rhythm [Apical] Regular Irregular Regular Pulse Strength Pulse Strength [Apical] Normal Normal Normal Respiratory Rate 18 20 22 Respiratory Effort / Characteristics Labored Labored Non-Labored Respiratory Depth Normal Normal Normal Respiratory Pattern Tachypnea Tachypnea Regular Blood Pressure Blood Pressure [Right Arm] 134/64 134/64 134/64 Blood Pressure Mean Blood Pressure Mean [Right Arm] 87 87 87 Blood Pressure Position Blood Pressure Position [Right Arm] Lying Lying Lying Pulse Oximetry 86 L 94 98 Oxygen Delivery Method Nasal Cannula Non-rebreather Non-rebreather Oxygen Flow Rate 5 15 15 Sepsis Recent Fever Within 48 Hours Sepsis New/Unexplained Change in Mental Status Sepsis Action Taken by Nursing 04/27/22 23:15 04/27/22 23:30 04/27/22 23:45 Temperature Temperature Source Pulse Rate Pulse Rate [Apical] 95 H 89 90 Pulse Rhythm Pulse Rhythm [Apical] Regular Regular Regular Pulse Strength Pulse Strength [Apical] Normal Normal Normal Respiratory Rate 23 20 20 Respiratory Effort / Characteristics Non-Labored Non-Labored Non-Labored Respiratory Depth Normal Normal Normal Respiratory Pattern Regular Regular Regular Blood Pressure Blood Pressure [Right Arm] 156/103 H 166/70 H Blood Pressure Mean Blood Pressure Mean [Right Arm] 120 102 Blood Pressure Position Blood Pressure Position [Right Arm] Lying Lying Pulse Oximetry 98 100 99 Oxygen Delivery Method Non-rebreather Non-rebreather Room Air Oxygen Flow Rate 15 15 Sepsis Recent Fever Within 48 Hours Sepsis New/Unexplained Change in Mental Status Sepsis Action Taken by Nursing 04/28/22 00:00 Temperature Temperature Source Pulse Rate Pulse Rate [Apical] 93 H Pulse Rhythm Pulse Rhythm [Apical] Regular Pulse Strength Pulse Strength [Apical] Normal Respiratory Rate 20 Respiratory Effort / Characteristics Non-Labored Respiratory Depth Normal Respiratory Pattern Regular Blood Pressure Blood Pressure [Right Arm] 122/94 Blood Pressure Mean Blood Pressure Mean [Right Arm] 103 Blood Pressure Position Blood Pressure Position [Right Arm] Lying Pulse Oximetry 99 Oxygen Delivery Method Non-rebreather Oxygen Flow Rate 7 Sepsis Recent Fever Within 48 Hours Sepsis New/Unexplained Change in Mental Status Sepsis Action Taken by Usp Medications Current Medication List: was personally reviewed by me Laboratory Data Attestation: I reviewed the patient's lab results. Result diagrams: 04/27/22 20:29 04/27/22 20:29 Lab Results 04/27/22 04/27/22 04/27/22 Range/Units 20:18 20:27 20:29 WBC 18.79 H (4.8-10.8) K/ul RBC 4.21 L (4.63-6.08) M/uL Hgb 13.3 L (14.0-18.0) g/dl Hct 38.9 L (40.1-51.0) % MCV 92.4 (80.0-100.0) fL MCH 31.6 (25.0-34.0) pg MCHC 34.2 (32.0-36.0) g/dL RDW Std Deviation 49.1 H (36.4-46.3) fL RDW Coeff of Paulo 14.5 (11.5-14.5) % Plt Count 376 (130-400) K/uL MPV 10.2 (9.4-12.4) fL Immature Gran % (Auto) 0.4 % Neut % (Auto) 90.5 % Lymph % (Auto) 1.6 % Angelina % (Auto) 7.2 % Eos % (Auto) 0.0 % Baso % (Auto) 0.3 % Neut # (Auto) 17.01 H (1.4-6.5) K/uL Lymph # (Auto) 0.30 L (1.2-3.4) K/uL Angelina # (Auto) 1.35 H (0.24-0.82) K/uL Eos # (Auto) 0.00 (0-0.50) K/uL Baso # (Auto) 0.05 (0-0.2) K/uL Immature Gran # (Auto) 0.08 H (0.00-0.02) K/uL RBC Morphology Unremarkable PT (9.0-12.0) Seconds INR (0.9-1.1) APTT (21.0-31.0) Seconds PTT Ratio VBG pH (7.36-7.41) VBG pCO2 (38-50) mmHg VBG pO2 mmHg VBG HCO3 mmol/L VBG O2 Saturation % VBG Base Excess mEq/L Sodium (136-145) mmol/L Potassium (3.5-5.1) mmol/L Chloride (98-107) mmol/L Carbon Dioxide (21-32) mmol/L Anion Gap (3-11) BUN (6-23) mg/dl Creatinine (0.6-1.4) mg/dl Est Cr Clr Drug Dosing ml/min Est GFR ( Amer) ml/min Est GFR (Non-Af Amer) ml/min BUN/Creatinine Ratio (10-20) Glucose (70-99(Fasting)) mg/dl POC Glucose 93 (70-99) mg/dl Lactate (0.4-2.0) mmol/L Calcium (8.5-10.1) mg/dl Magnesium (1.7-2.4) mg/dl Total Bilirubin (0.2-1.0) mg/dl Direct Bilirubin (0-0.2) mg/dl AST (13-39) U/L ALT (7-52) U/L Alkaline Phosphatase (34-104) U/L Troponin I High Sens (0-20) pg/ml Total Protein (6.0-8.3) gm/dl Albumin (3.4-5.0) gm/dl Procalcitonin (0-0.5) ng/ml Urine Color Urine Appearance (Clear) Urine pH (4.5-7.5) Ur Specific [place] (1.000-1.030) Urine Protein (Negative) Urine Glucose (UA) (Negative) Urine Ketones (Negative) Urine Blood (Negative) Urine Nitrite (Negative) Urine Bilirubin (Negative) Urine Urobilinogen (Negative) Ur Leukocyte Esterase (Negative) Urine WBC (Auto) (0-5) /hpf Urine RBC (Auto) (0-4) /hpf U Hyaline Cast (Auto) (0-5) /lpf U Epithel Cells (Auto) (0-5) /lpf Urine Bacteria (Auto) (Negative) SARS-CoV-2, RNA, NAAT NEGATIVE (NEGATIVE) 04/27/22 04/27/22 04/27/22 Range/Units 20:29 20:29 20:29 WBC (4.8-10.8) K/ul RBC (4.63-6.08) M/uL Hgb (14.0-18.0) g/dl Hct (40.1-51.0) % MCV (80.0-100.0) fL MCH (25.0-34.0) pg MCHC (32.0-36.0) g/dL RDW Std Deviation (36.4-46.3) fL RDW Coeff of Paulo (11.5-14.5) % Plt Count (130-400) K/uL MPV (9.4-12.4) fL Immature Gran % (Auto) % Neut % (Auto) % Lymph % (Auto) % Angelina % (Auto) % Eos % (Auto) % Baso % (Auto) % Neut # (Auto) (1.4-6.5) K/uL Lymph # (Auto) (1.2-3.4) K/uL Angelina # (Auto) (0.24-0.82) K/uL Eos # (Auto) (0-0.50) K/uL Baso # (Auto) (0-0.2) K/uL Immature Gran # (Auto) (0.00-0.02) K/uL RBC Morphology PT 12.6 H (9.0-12.0) Seconds INR 1.2 H (0.9-1.1) APTT 32.5 H (21.0-31.0) Seconds PTT Ratio 1.2 VBG pH (7.36-7.41) VBG pCO2 (38-50) mmHg VBG pO2 mmHg VBG HCO3 mmol/L VBG O2 Saturation % VBG Base Excess mEq/L Sodium 134 L (136-145) mmol/L Potassium 3.8 (3.5-5.1) mmol/L Chloride 95 L (98-107) mmol/L Carbon Dioxide 32 (21-32) mmol/L Anion Gap 7 (3-11) BUN 35 H (6-23) mg/dl Creatinine 1.95 H (0.6-1.4) mg/dl Est Cr Clr Drug Dosing 38.3 ml/min Est GFR ( Amer) 36.1 ml/min Est GFR (Non-Af Amer) 31.1 ml/min BUN/Creatinine Ratio 17.9 (10-20) Glucose 67 L (70-99(Fasting)) mg/dl POC Glucose (70-99) mg/dl Lactate 1.2 (0.4-2.0) mmol/L Calcium 9.3 (8.5-10.1) mg/dl Magnesium 1.7 (1.7-2.4) mg/dl Total Bilirubin 0.8 (0.2-1.0) mg/dl Direct Bilirubin 0.1 (0-0.2) mg/dl AST 18 (13-39) U/L ALT 10 (7-52) U/L Alkaline Phosphatase 62 (34-104) U/L Troponin I High Sens 24.2 H (0-20) pg/ml Total Protein 7.5 (6.0-8.3) gm/dl Albumin 3.5 (3.4-5.0) gm/dl Procalcitonin (0-0.5) ng/ml Urine Color Urine Appearance (Clear) Urine pH (4.5-7.5) Ur Specific [place] (1.000-1.030) Urine Protein (Negative) Urine Glucose (UA) (Negative) Urine Ketones (Negative) Urine Blood (Negative) Urine Nitrite (Negative) Urine Bilirubin (Negative) Urine Urobilinogen (Negative) Ur Leukocyte Esterase (Negative) Urine WBC (Auto) (0-5) /hpf Urine RBC (Auto) (0-4) /hpf U Hyaline Cast (Auto) (0-5) /lpf U Epithel Cells (Auto) (0-5) /lpf Urine Bacteria (Auto) (Negative) SARS-CoV-2, RNA, NAAT (NEGATIVE) 04/27/22 04/27/22 04/27/22 Range/Units 20:29 20:51 22:14 WBC (4.8-10.8) K/ul RBC (4.63-6.08) M/uL Hgb (14.0-18.0) g/dl Hct (40.1-51.0) % MCV (80.0-100.0) fL MCH (25.0-34.0) pg MCHC (32.0-36.0) g/dL RDW Std Deviation (36.4-46.3) fL RDW Coeff of Paulo (11.5-14.5) % Plt Count (130-400) K/uL MPV (9.4-12.4) fL Immature Gran % (Auto) % Neut % (Auto) % Lymph % (Auto) % Angelina % (Auto) % Eos % (Auto) % Baso % (Auto) % Neut # (Auto) (1.4-6.5) K/uL Lymph # (Auto) (1.2-3.4) K/uL Angelina # (Auto) (0.24-0.82) K/uL Eos # (Auto) (0-0.50) K/uL Baso # (Auto) (0-0.2) K/uL Immature Gran # (Auto) (0.00-0.02) K/uL RBC Morphology PT (9.0-12.0) Seconds INR (0.9-1.1) APTT (21.0-31.0) Seconds PTT Ratio VBG pH 7.44 H (7.36-7.41) VBG pCO2 53 H (38-50) mmHg VBG pO2 35 mmHg VBG HCO3 36 mmol/L VBG O2 Saturation < 60.0 % VBG Base Excess 9.9 mEq/L Sodium (136-145) mmol/L Potassium (3.5-5.1) mmol/L Chloride (98-107) mmol/L Carbon Dioxide (21-32) mmol/L Anion Gap (3-11) BUN (6-23) mg/dl Creatinine (0.6-1.4) mg/dl Est Cr Clr Drug Dosing ml/min Est GFR ( Amer) ml/min Est GFR (Non-Af Amer) ml/min BUN/Creatinine Ratio (10-20) Glucose (70-99(Fasting)) mg/dl POC Glucose (70-99) mg/dl Lactate (0.4-2.0) mmol/L Calcium (8.5-10.1) mg/dl Magnesium (1.7-2.4) mg/dl Total Bilirubin (0.2-1.0) mg/dl Direct Bilirubin (0-0.2) mg/dl AST (13-39) U/L ALT (7-52) U/L Alkaline Phosphatase (34-104) U/L Troponin I High Sens (0-20) pg/ml Total Protein (6.0-8.3) gm/dl Albumin (3.4-5.0) gm/dl Procalcitonin 0.99 H (0-0.5) ng/ml Urine Color Yellow Urine Appearance Clear (Clear) Urine pH 5.0 (4.5-7.5) Ur Specific [place] 1.015 (1.000-1.030) Urine Protein 2+ H (Negative) Urine Glucose (UA) Trace H (Negative) Urine Ketones Negative (Negative) Urine Blood Negative (Negative) Urine Nitrite Negative (Negative) Urine Bilirubin Negative (Negative) Urine Urobilinogen Negative (Negative) Ur Leukocyte Esterase Negative (Negative) Urine WBC (Auto) 1-5 (0-5) /hpf Urine RBC (Auto) 0-4 (0-4) /hpf U Hyaline Cast (Auto) 1-5 (0-5) /lpf U Epithel Cells (Auto) 10-20 H (0-5) /lpf Urine Bacteria (Auto) Negative (Negative) SARS-CoV-2, RNA, NAAT (NEGATIVE) 04/27/22 Range/Units 23:17 WBC (4.8-10.8) K/ul RBC (4.63-6.08) M/uL Hgb (14.0-18.0) g/dl Hct (40.1-51.0) % MCV (80.0-100.0) fL MCH (25.0-34.0) pg MCHC (32.0-36.0) g/dL RDW Std Deviation (36.4-46.3) fL RDW Coeff of Paulo (11.5-14.5) % Plt Count (130-400) K/uL MPV (9.4-12.4) fL Immature Gran % (Auto) % Neut % (Auto) % Lymph % (Auto) % Angelina % (Auto) % Eos % (Auto) % Baso % (Auto) % Neut # (Auto) (1.4-6.5) K/uL Lymph # (Auto) (1.2-3.4) K/uL Angelina # (Auto) (0.24-0.82) K/uL Eos # (Auto) (0-0.50) K/uL Baso # (Auto) (0-0.2) K/uL Immature Gran # (Auto) (0.00-0.02) K/uL RBC Morphology PT (9.0-12.0) Seconds INR (0.9-1.1) APTT (21.0-31.0) Seconds PTT Ratio VBG pH (7.36-7.41) VBG pCO2 (38-50) mmHg VBG pO2 mmHg VBG HCO3 mmol/L VBG O2 Saturation % VBG Base Excess mEq/L Sodium (136-145) mmol/L Potassium (3.5-5.1) mmol/L Chloride (98-107) mmol/L Carbon Dioxide (21-32) mmol/L Anion Gap (3-11) BUN (6-23) mg/dl Creatinine (0.6-1.4) mg/dl Est Cr Clr Drug Dosing ml/min Est GFR ( Amer) ml/min Est GFR (Non-Af Amer) ml/min BUN/Creatinine Ratio (10-20) Glucose (70-99(Fasting)) mg/dl POC Glucose 68 L* (70-99) mg/dl Lactate (0.4-2.0) mmol/L Calcium (8.5-10.1) mg/dl Magnesium (1.7-2.4) mg/dl Total Bilirubin (0.2-1.0) mg/dl Direct Bilirubin (0-0.2) mg/dl AST (13-39) U/L ALT (7-52) U/L Alkaline Phosphatase (34-104) U/L Troponin I High Sens (0-20) pg/ml Total Protein (6.0-8.3) gm/dl Albumin (3.4-5.0) gm/dl Procalcitonin (0-0.5) ng/ml Urine Color Urine Appearance (Clear) Urine pH (4.5-7.5) Ur Specific [place] (1.000-1.030) Urine Protein (Negative) Urine Glucose (UA) (Negative) Urine Ketones (Negative) Urine Blood (Negative) Urine Nitrite (Negative) Urine Bilirubin (Negative) Urine Urobilinogen (Negative) Ur Leukocyte Esterase (Negative) Urine WBC (Auto) (0-5) /hpf Urine RBC (Auto) (0-4) /hpf U Hyaline Cast (Auto) (0-5) /lpf U Epithel Cells (Auto) (0-5) /lpf Urine Bacteria (Auto) (Negative) SARS-CoV-2, RNA, NAAT (NEGATIVE) Administered Medications Discontinued Medications Diphenhydramine HCl (Diphenhydramine 50 Mg/Ml Vial) 25 mg IV NOW STA Stop: 04/27/22 23:14 Last Admin: 04/27/22 23:22 Dose: 25 mg Documented By: KRISTY Furosemide (Furosemide 40 Mg/4 Ml Vial) 40 mg IV ONE ONE Stop: 04/27/22 22:21 Last Admin: 04/27/22 22:37 Dose: 40 mg Documented By: KRISTY Piperacillin Sod/Tazobactam Sod (Zosyn) 4.5 gm in 120 mls @ 240 mls/hr IV NOW ONE Stop: 04/27/22 20:52 Last Infusion: 04/27/22 22:42 Dose: 0 mls/hr Documented By: Admin: 04/27/22 21:54 Dose: 240 mls/hr Documented By: ISIDOROS Vancomycin HCl 2,500 mg/ (Sodium Chloride) 550 mls @ 200 mls/hr IV NOW ONE Stop: 04/27/22 23:07 Last Admin: 04/27/22 23:09 Dose: 200 mls/hr Documented By: KRISTY Imaging Data Attestation: I personally reviewed and interpreted this imaging study as allyson lows: My Impression: 1 view chest x-ray was obtained in the emergency department. My interpretation is cardiomegaly with pulmonary edema. X-ray of the left hand was obtained in the emergency department. My interpretation is significant soft tissue edema, metallic foreign bodies were noted in the left second third and fourth digits. There is no acute fracture but chronic changes were noted over the distal phalanx. Discharge Plan Visit Data Chief Complaint: Altered Mental Status ED Provider: Vadim Mathis Discharge Problem: Cellulitis of hand, left, Hypoglycemia, Pulmonary edema, Hypoxia Patient Disposition: Being Evaluated by Hospitalist Forms Stand Alone Forms: My [facility] Prescriptions Prescriptions: No Action gabapentin 300 mg capsule 600 mg PO BID Qty: 360 3RF Xarelto 15 mg tablet 15 mg PO QPM Qty: 90 3RF spironolactone 25 mg tablet 25 mg PO BID Qty: 180 3RF Hold Instructions: Hyperkalemia duloxetine 60 mg capsule,delayed release(DR/EC) 60 mg PO QAM Qty: 90 3RF metoprolol succinate 100 mg tablet extended release 24 hr 100 mg PO QAM Qty: 90 3RF montelukast 10 mg tablet 10 mg PO HS Qty: 90 3RF bumetanide 1 mg tablet 1 mg PO BID Qty: 200 3RF Hold Instructions: Pt rpts no RF at pharm - last dose ~ 01/21/21. Now lasix Rx Instructions: take at 8am, and then about 4pm each day. May increase to 2 mg BID for weight gain, SOB, edema. Lantus U-100 Insulin 100 unit/mL solution 80 unit subcut BID Qty: 150 1RF (DME) insulin syringe-needle U-100 [BD Insulin Syringe Ultra-Fine] 1 mL 31 gauge x 5/16 syringe See Rx Instructions .ROUTE .MEDSUPPLY Qty: 600 3RF Rx Instructions: use 6 x daily to inject insulin insulin aspart U-100 [Novolog U-100 Insulin aspart] 100 unit/mL solution See Rx Instructions .ROUTE .COMPLEX Qty: 280 3RF Dose Instruction: INJECT 65 UNITS UNDER THE SKIN FOUR TIMES A DAY PLUS SLIDING SCALE, MAXIMUM DAILY DOSE: 300 UNITS Rx Instructions: INJECT 65 UNITS UNDER THE SKIN FOUR TIMES A DAY PLUS SLIDING SCALE, MAXIMUM DAILY DOSE: 300 UNITS lisinopril 5 mg tablet 5 mg PO QAM Qty: 90 3RF cholecalciferol (vitamin D3) 50 mcg (2,000 unit) capsule 4,000 unit PO QAM pantoprazole 20 mg tablet,delayed release (DR/EC) 20 mg PO QAM Qty: 90 3RF atorvastatin 80 mg tablet 80 mg PO HS Qty: 90 3RF doxycycline hyclate 100 mg tablet 100 mg PO BID 10 Days Qty: 20 0RF (DME) Dexcom G6 Sensor Device See Rx Instructions .ROUTE .MEDSUPPLY Qty: 3 Rx Instructions: As directed (DME) Dexcom G6 Transmitter Device See Rx Instructions .ROUTE .MEDSUPPLY Qty: 1 Rx Instructions: As directed (DME) Dexcom G6 Log Truck Driver Misc See Rx Instructions .ROUTE .MEDSUPPLY Qty: 1 Rx Instructions: As directed (DME) FreeStyle Lite Strips Strip See Rx Instructions .ROUTE .MEDSUPPLY Rx Instructions: TEST 1 TIMES DAILY nitroglycerin [Nitrostat] 0.4 mg tablet, sublingual 0.4 mg Sublingual Q5M PRN (Reason: Chest Pain) Rx Instructions: NEEDED FOR CHEST PAIN : ONE TABLET UNDER THE TONGUE EVERY 5 MINUTES UP TO 3 DOSES. aspirin 81 mg Tablet,Delayed Release (Dr/Ec) 81 mg PO QAM fenofibrate 54 mg tablet 54 mg PO HS ketoconazole 2 % cream 1 applic topical DAILY PRN (Reason: Rash) Jardiance 25 mg tablet 25 mg PO DAILY Referrals Referrals: Tere Narayan MD [Primary Care Provider] -
[2022-04-27 20:59] LABS: Base Excess VBG 9.9 mEq/L; HCO3 VBG 36 mmol/L; Oxygen Saturation VBG < 60.0 %; PCO2 VBG 53 mmHg (38-50); PO2 VBG 35 mmHg; pH VBG 7.44 (7.36-7.41)
[2022-04-27 21:03] LABS: INR 1.2 (0.9-1.1); Partial Thromboplastin Ratio 1.2; Partial Thromboplastin Time 32.5 Seconds (21.0-31.0); Prothrombin Time 12.6 Seconds (9.0-12.0)
[2022-04-27 21:06] LABS: Hematocrit (blood only) 38.9 % (40.1-51.0); Hemoglobin 13.3 g/dl (14.0-18.0); Mean Corpuscular Hemoglobin 31.6 pg (25.0-34.0); Mean Corpuscular Hgb Conc 34.2 g/dL (32.0-36.0); Mean Corpuscular Volume 92.4 fL (80.0-100.0); Mean Platelet Volume 10.2 fL (9.4-12.4); Platelet Count 376 K/uL (130-400); RDW Coefficient of Variation 14.5 % (11.5-14.5); RDW Standard Deviation 49.1 fL (36.4-46.3); Red Blood Count 4.21 M/uL (4.63-6.08); White Blood Count 18.79 K/ul (4.8-10.8)
[2022-04-27 21:14] LABS: Albumin Level 3.5 gm/dl (3.4-5.0); BUN Creatinine Ratio 17.9 (10-20); Bilirubin Direct 0.1 mg/dl (0-0.2); Bilirubin,Total 0.8 mg/dl (0.2-1.0); Calcium 9.3 mg/dl (8.5-10.1); Creatinine Clr Calc Pharmacy 38.3 ml/min; Est GFR (African American) 36.1 ml/min; Est GFR (Non-African American) 31.1 ml/min; Magnesium 1.7 mg/dl (1.7-2.4); Potassium 3.8 mmol/L (3.5-5.1); Total Protein 7.5 gm/dl (6.0-8.3); Troponin I High Sensitivity 24.2 pg/ml (0-20)
[2022-04-27 21:49] LABS: Basophils # (auto) 0.05 K/uL (0-0.2); Basophils % (auto) 0.3 %; Immature Granulocytes # (auto) 0.08 K/uL (0.00-0.02); Immature Granulocytes % (auto) 0.4 %; Lymphocytes % (auto) 1.6 %; Monocytes # (auto) 1.35 K/uL (0.24-0.82); Monocytes % (auto) 7.2 %; Neutrophils # (auto) 17.01 K/uL (1.4-6.5); Neutrophils % (auto) 90.5 %; RBC Morphology Unremarkable
[2022-04-27] MEDS ORDERED: FUROSEMIDE 40 MG/4 ML VIAL IV ONE (22:20)
[2022-04-27 23:03] LABS: Appearance Urine Clear (Clear); Bacteria Urine Automated Negative (Negative); Bilirubin Urine Negative (Negative); Blood Urine Negative (Negative); Color Urine Yellow; Glucose Urine UA Trace (Negative); Ketones Urine Negative (Negative); Leukocyte Esterase Urine Negative (Negative); Nitrite Urine Negative (Negative); Protein Urine 2+ (Negative); RBC Urine Automated 0-4 /hpf (0-4); Specific Gravity Urine 1.015 (1.000-1.030); Urobilinogen Urine Negative (Negative)
--- NOTE | 2022-04-27 23:03 | History & Physical Report ---
Date of Service April 27, 2022 Assessment & Plan (1) Infection of left hand: Plan: 81 y/o M w/ PMHx of DM2 on insulin, HFpEF, multivessel CAD, CKD3, afib on Xarelto, and lumbar spinal stenosis who presents with ongoing left hand infection from 04/14 using a tomato slicer. He has failed outpatient antibiotics cefdinir x 10 days and doxy x 2 days. - leukocytosis to 18.79. - SIRS 2/4 (HR 100s at admission) - mildly increased confusion; increased falls - vanc/zosyn in ED. cultures pending. swithcing to dapto/zosyn. nasal mrsa neg; noted that dapto would not cover respiratory tract procal ~1.0, though clinically not convincing for resp infection - obtain CT hand. statrad: soft tissue edema. no obvious loculated collection. no bony erosive changes. Impression: superficial cellulitis - consult ortho - consult PT/OT - mild ams. hold sedating meds. ct head w/o acute findings (2) Hypoglycemia: Plan: - bsg 50 at ems arrival. Had several lows. Check bsg q1h. pharmacy glycemic consult (restart insulin cautiously). home regimen has large amount of lantus (70-80u BID); likely contributory in setting of decreased PO intake (3) Dyslipidemia: Plan: - continue home regimen (4) Hypertension: Plan: - continue home regimen (5) 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, with long- term current use of insulin: Plan: - pharmacy glycemic consult as above (6) Chronic HFrEF (heart failure with reduced ejection fraction): Plan: - diuresing. per cxr, pulm edema (7) Atrial fibrillation: Plan: - hold home anticoag while awaiting ortho consult Plan FEN/GI: NPO. No IV maintenance fluids. anticoag: hold home Xarelto code: dnr/dni dispo: pcu History of Present Illness Chief Complaint: hand infection. increased confusion Primary Care Provider: Tere Narayan MD 81 y/o M w/ PMHx of DM2 on insulin, HFpEF, multivessel CAD, CKD3, afib on Xarelto, and lumbar spinal stenosis who presents with ongoing left hand infection from 04/14 using a tomato slicer. He has failed outpatient antibiotics, initially w/ cefdinir, then switched to doxycycline on 04/25. He has had increased falls for the past 2 weeks. Since this afternoon, patient has had increased confusion, chills, so family called EMS. Family states that patient's state of health has not been the best with his chronic medical conditions contributing to patient's depressed affect and decreased PO intake. BSG was 50 at EMS arrival and he required 2 separate doses of dextrose. In the ED, patient was more sleepy than usual, but arousable. He denies current pain. Tdap in 2019. ED course: Vanc. Zosyn. ecg w/ afib, rate controlle. lbbb (not new). pvcs. Allergies Allergy/AdvReac Type Severity Reaction Status Date / Time No Known Drug Allergies Allergy Unknown NKDA Verified 04/25/22 13:36 Home Medications Medication Instructions Recorded Confirmed Type aspirin 81 mg tablet,delayed 81 mg PO QAM 06/04/18 04/27/22 History release nitroglycerin 0.4 mg sublingual 0.4 mg sublingual Q5M PRN Chest 02/25/19 04/27/22 History tablet (Nitrostat) Pain cholecalciferol (vitamin D3) 50 4,000 unit PO QAM 04/22/20 04/27/22 History mcg (2,000 unit) capsule blood-glucose meter,continuous #1 ea 11/10/20 04/25/22 History (Dexcom G6 Vocational Training Director misc) blood-glucose sensor (Dexcom G6 #3 ea 11/10/20 04/25/22 History Sensor device) blood-glucose transmitter (Dexcom #1 ea 11/10/20 04/25/22 History G6 Transmitter device) gabapentin 300 mg capsule 600 mg PO BID #360 caps 05/21/21 04/27/22 Rx rivaroxaban 15 mg tablet (Xarelto) 15 mg PO QPM #90 tabs 05/26/21 04/27/22 Rx spironolactone 25 mg tablet 25 mg PO BID #180 tabs 06/11/21 04/27/22 Rx duloxetine 60 mg capsule,delayed 60 mg PO QAM #90 caps 08/25/21 04/27/22 Rx release metoprolol succinate 100 mg 100 mg PO QAM #90 tabs 08/25/21 04/27/22 Rx tablet,extended release 24 hr montelukast 10 mg tablet 10 mg PO HS #90 tabs 09/10/21 04/27/22 Rx bumetanide 1 mg tablet 1 mg PO BID #200 tabs 11/23/21 04/27/22 Rx blood sugar diagnostic (FreeStyle 12/01/21 04/25/22 History Lite Strips) fenofibrate 54 mg tablet 54 mg PO HS 01/04/22 04/27/22 History ketoconazole 2 % topical cream 1 applic topical DAILY PRN Rash 01/04/22 04/27/22 History insulin glargine 100 unit/mL 80 unit (0.8 mL) subcut BID high 01/17/22 04/27/22 Rx subcutaneous solution (Lantus blood sugar #150 mL U-100 Insulin) atorvastatin 80 mg tablet 80 mg PO HS #90 tabs 03/19/22 04/27/22 Rx pantoprazole 20 mg tablet,delayed 20 mg PO QAM #90 tabs 03/19/22 04/27/22 Rx release insulin syringe-needle U-100 1 mL #600 ea 04/07/22 04/25/22 Rx 31 gauge x 5/16" (BD Insulin Syringe Ultra-Fine) insulin aspart U-100 100 unit/mL See Rx Instructions .Route 04/19/22 04/27/22 Rx subcutaneous solution (Novolog .COMPLEX #280 mL U-100 Insulin aspart) lisinopril 5 mg tablet 5 mg PO QAM #90 tabs 04/20/22 04/27/22 Rx doxycycline hyclate 100 mg tablet 100 mg PO BID 10 days #20 tabs 04/25/22 04/27/22 Rx empagliflozin 25 mg tablet 25 mg PO DAILY 04/27/22 04/27/22 History (Jardiance) Past Med/Surg History Medical History Anxiety Atrial fibrillation Reason for Xarelto Follows with [facility] C4 cervical fracture No surgical intervention. Full ROM. Occurred 2-3 years ago- no current issues CAD (coronary artery disease) S/p RCA PCI in 1991, 1998, and 2004- totaling 5 stents to prox and mid RCA S/p 3 vessel CABG 2008 Cardiomyopathy Carotid artery stenosis, asymptomatic No hemodynamically significant stenosis per 2019 CTA of neck to ICAs bilaterally CHF (congestive heart failure) Chronic kidney disease, stage III (moderate) Depression DM type 2 (diabetes mellitus, type 2) IDDM Dysphagia Occasional (per ) Gastroparesis GERD (gastroesophageal reflux disease) Well controlled and stable Hearing deficit [place] History of traumatic brain injury 2018 (after fall down stairs) > subdural hematoma resolved without surgical intervention, no residual issues Hyperlipidemia Hypertension ICD (implantable cardioverter-defibrillator) in place Medtr[employer]. Implanted ~2017 for sustained VT Insomnia LBBB (left bundle branch block) Chronic dating back to at least 07/2019 EKG per charts PAD (peripheral artery disease) H/o of right SFA/TP trunk/PT angioplasty at OSH (2011) Peripheral neuropathy Poor historian Sensorineural hearing loss of both ears Situational depression Sleep apnea Refuses device per records Spinal stenosis Subdural hematoma 2017 (after fall down stairs) > subdural hematoma resolved without surgical intervention, no residual issues Venous insufficiency Surgical History History of anesthesia reaction Combative with emergence History of back surgery History of cardiac cath Multiple (hx stents) History of cataract surgery R/L History of cholecystectomy History of colonoscopy History of knee replacement Left Hx of angioplasty Hx of CABG CABG x3 (2008) S/P epidural steroid injection S/P ICD (internal cardiac defibrillator) procedure Family History Daughter Family history of reaction to anesthesia PONV Sister Cancer Father Family history of diabetes mellitus Grandmother (Maternal) Family history of diabetes mellitus Other No significant family history Denies family history of Ovarian cancer Prostate cancer Coronary heart disease Breast cancer Colorectal cancer Social History Smoking Status: Former smoker Tobacco Type: Cigarettes Age Started Using Tobacco: 19; Age Quit Using Tobacco: 49; packs per day: 2; Second Hand Exposure: Yes (SPOUSE SMOKES (OUTSIDE)); Hx Alcohol Use: No Hx Substance Use: No Preferred Language: Occitan Communication Ability: Effective Visual Impairment: Limited Hearing Ability: Hard of Hearing Tire Fabric Inspector Required: No Beliefs That Will Affect Care: None marital status: Current Living Situation: Spouse current occupational status: retired 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 patient responded w/ nods. drowsy at time of my exam) Physical Exam Physical Exam: General: Grossly A&O. Sleeping, but arousable. Slightly sleepy. NAD. Cooperative. Wearing high flow mask at time of exam. HEENT: Atraumatic, normocephalic. EOMI Pulm: CTAB anteriorly. -wheezes, -rales, -rhonchi. No respiratory distress. Cardiac: RRR, -mrg. No LE edema. Abdominal: Nontender, nondistended, soft. Integ: L hand gross swelling. NV intact. third digit distal half w/ skin peeled. swollen. Msk: Moving all extrem. Results & Data Results & Data ([facility]) Vital Signs (Past 12 Hours) Vital Signs Temp Pulse Pulse Resp BP BP Pulse Ox 04/27/22 22:15 100 H 20 134/64 94 04/27/22 22:00 102 H 18 134/64 86 L 04/27/22 20:22 87 20 97 04/27/22 20:12 97 04/27/22 20:12 37.1 C 88 20 134/64 97 O2 Del Method O2 Flow Rate 04/27/22 22:15 Non-rebreather 15 04/27/22 22:00 Nasal Cannula 5 04/27/22 20:22 Nasal Cannula 2 04/27/22 20:12 Nasal Cannula 3 04/27/22 20:12 Nasal Cannula 3 Laboratory Results Cardiac Enzymes 04/27/22 Range/Units 20:29 AST 18 (13-39) U/L Troponin I High Sens 24.2 H (0-20) pg/ml Coagulation 04/27/22 Range/Units 20:29 PT 12.6 H (9.0-12.0) Seconds APTT 32.5 H (21.0-31.0) Seconds CBC 04/27/22 Range/Units 20:29 WBC 18.79 H (4.8-10.8) K/ul RBC 4.21 L (4.63-6.08) M/uL Hgb 13.3 L (14.0-18.0) g/dl Hct 38.9 L (40.1-51.0) % Plt Count 376 (130-400) K/uL Neut # (Auto) 17.01 H (1.4-6.5) K/uL Lymph # (Auto) 0.30 L (1.2-3.4) K/uL [place] # (Auto) 1.35 H (0.24-0.82) K/uL Eos # (Auto) 0.00 (0-0.50) K/uL Baso # (Auto) 0.05 (0-0.2) K/uL Comprehensive Metabolic Panel 04/27/22 Range/Units 20:29 Sodium 134 L (136-145) mmol/L Potassium 3.8 (3.5-5.1) mmol/L Chloride 95 L (98-107) mmol/L Carbon Dioxide 32 (21-32) mmol/L BUN 35 H (6-23) mg/dl Creatinine 1.95 H (0.6-1.4) mg/dl Glucose 67 L (70-99(Fasting)) mg/dl Calcium 9.3 (8.5-10.1) mg/dl Direct Bilirubin 0.1 (0-0.2) mg/dl AST 18 (13-39) U/L ALT 10 (7-52) U/L Alkaline Phosphatase 62 (34-104) U/L Total Protein 7.5 (6.0-8.3) gm/dl Albumin 3.5 (3.4-5.0) gm/dl Intake and Output 04/27/22 04/27/22 04/28/22 14:59 22:59 06:59 Intake Total 120 / 120 Output Total 350 / 350 Balance -230 / -230 Intake: IV 120 / 120 Piperacillin/Tazobactam 4.5 gm 120 / 120 In 120 ml @ 240 mls/hr IV NOW ONE Rx#:[id number] Oral 0 / 0 Output: Urine 350 / 350 Other: Weight 119.1 kg Weight Measurement Method Built in [facility] Patient Weight 04/28/22 06:59 Weight 119.1 kg Code Status & VTE Plan Code Status DNR/DNI VTE Prophylaxis Plan VTE Prophylaxis will be ordered: Yes Supervising Physician Co-Signing Physician Notes Patient seen and examined, chart reviewed Patient continues to be somnolent. He is saturating 100% on 15L NRB. Decreased to 7L - continues to saturate 96-98% -Wean as tolerated -Family reports his saturations tend to be in the 80's at baseline. Would aim for 90% Hypoglycemia - most likely secondary to insulin use, poor oral intake, unde rlying infection -Continue to check BSG q hourly -Treatment as needed -Hold insulin ASA resumed as was Duloxetine Continue to hold Xarelto in case hand surgery is needed Resident Activity Tracking Resident Involvement: Resident Care Provided Care Provided: Adult Hospital Medicine (1) Atrial fibrillation Atrial fibrillation type: unspecified Qualified Code(s): I48.91 - Unspecified atrial fibrillation (2) Hypertension Hypertension type: essential hypertension Qualified Code(s): I10 - Essential (primary) hypertension
[2022-04-27] MEDS ORDERED: diphenhydrAMINE 50 MG/ML VIAL IV STA (23:13)
[2022-04-28] MEDS ORDERED: GLUCOSE 10 TAB/TUBE PO PRN (01:05)
[2022-04-28] MEDS ORDERED: GLUCAGON FOR INJ 1 MG VIAL SQ PRN (01:05)
[2022-04-28] MEDS ORDERED: DEXTROSE 50% 50 ML SYRINGE IV PRN (01:05)
[2022-04-28] MEDS ORDERED: CARBOHYDRATES FOR HYPOGLYCEMIA PO PRN (01:05)
[2022-04-28] MEDS ORDERED: GLUCOSE 40% GEL 15 GM TUBE PO PRN (01:05)
[2022-04-28] MEDS ORDERED: FUROSEMIDE 40 MG/4 ML VIAL IV ONE (02:52)
[2022-04-28] MEDS: POTASSIUM CHLORIDE / WTR 10 MEQ/100 ML PLCT IV SCH ×2 (03:20→04:21)
[2022-04-28] MEDS: PIPERACILLIN/TAZOBACTAM 4.5 GM in DEXTROSE 5% 100 ML IV SCH ×3 (03:50→21:15)
--- NOTE | 2022-04-28 06:40 | Billing Data ---
Date of Service April 28, 2022 Coding Level of Care Code 69730 Initial Inpt Care Lvl 3
[2022-04-28] MEDS ORDERED: PHARMACY GLYCEMIC MGMT CONSULT PRN (07:11)
--- NOTE | 2022-04-28 07:43 | CT Scan Report ---
LEFT HAND CT CT DOSE: 921.84 mGy.cm HISTORY: left hand infection TECHNIQUE: Multiaxial CT images of the left hand were performed and reformatted in the sagittal and c oronal plane without the use of contrast. A dose lowering technique was utilized adhering to the char Hurd. COMPARISON: Left hand radiograph 04/27/2022. FINDINGS: There is diffuse soft tissue edema/swelling throughout the hand most pronounced within the index finger. No definite loculated fluid collections on this noncontrast study to suggest an abscess . Erosive changes at the distal tuft of the index finger with an associated fracture. Near-complete o steolysis of the distal left of the third finger. And a small focal erosion of the distal tuft of the fourth finger which appear to be chronic. The middle and distal phalanx of the fifth finger are abse nt. These appear to represent chronic findings. Small linear metallic foreign bodies within the secon d through fourth digits. IMPRESSION: 1. Diffuse soft tissue edema throughout the left hand most pronounced at the index finger. This favor s a cellulitis. 2. No definite loculated fluid collections on this noncontrast study to suggest an abscess. 3. Erosive changes at the distal tuft of the left index finger with an associated fracture. This coul d be due to acro osteolysis or an osteomyelitis. 4. Chronic erosive changes seen within the distal murray of the third and fourth fingers. 5. Multiple linear metallic foreign body seen within the second through fourth fingers. 6. This report was called/faxed to the emergency department following dictation. ACT 112: Negative or not required by law. Electronically signed by: Boston North M.D. 04/28/2022 7:41 AM
--- NOTE | 2022-04-28 07:51 | XRay Report ---
XR hand LT min 3V routine CLINICAL HISTORY: Left hand swelling. COMPARISON STUDY: Left hand 12/16/2018. FINDINGS: Interval development of erosive changes and a pathologic fracture at the distal tuft of the left index finger. Chronic erosive changes at the distal murray of the third and fourth fingers. Ther e is absence of the middle and distal phalanx of the fifth finger, unchanged. Multiple linear metalli c foreign body seen within the second through third fingers. This is new from the prior study. IMPRESSION: 1. Interval development of erosive changes and a pathologic fracture the distal tuft of the left inde x finger. This could be due to osteomyelitis or acro-osteolysis. 2. Diffuse soft tissue swelling within the left hand. 3. Linear metallic foreign bodies within the second through fourth digits which are new from the prio r study. 4. Chronic erosive changes/acro osteolysis within the distal murray of the third and fourth fingers. ACT 112: Negative or not required by law. Electronically signed by: Boston North M.D. 04/28/2022 7:48 AM
[2022-04-28] MEDS ORDERED: NITROGLYCERIN SL 0.4 MG/TAB TAB SL PRN (07:58)
--- NOTE | 2022-04-28 08:23 | CT Scan Report ---
CT SCAN OF THE BRAIN WITHOUT IV CONTRAST CLINICAL HISTORY: Falls. Change in mental status. COMPARISON STUDY: CT of the brain dated 03/09/2022. TECHNIQUE: Unenhanced axial CT scan of the brain is performed from the vertex to the skull base. A do se lowering technique was utilized adhering to the principles of ALARA. CT DOSE: 614.27 mGy.cm FINDINGS: Brain parenchyma: There is age-related involutional change noting [id number] subcortical and pe riventricular microangiopathic disease. There is no hemorrhage, mass effect, or evidence of acute ter ritorial ischemia by CT criteria. Kumar-white matter differentiation is preserved. No extra-axial flui d collection is seen. Ventricles, sulci, cisterns: Prominent secondary to involutional change. Intracranial vasculature: There is atherosclerotic calcification of the cavernous carotid and vertebr al arteries. Calvarium: The skeletal structures are osteopenic. No depressed calvarial fracture is identified. Sinuses and mastoids: The paranasal sinuses are clear. The mastoid air cells are well pneumatized. Orbits: The bony orbits are grossly intact. There are bilateral ocular lens implants. IMPRESSION: There is no hemorrhage, mass effect, or evidence of acute territorial ischemia by CT darryl combs. ACT 112: Negative or not required by law. Electronically signed by: Hiram Leal M.D. 04/28/2022 8:20 AM
[2022-04-28 08:37] LABS: Basophils # (auto) 0.04 K/uL (0-0.2); Basophils % (auto) 0.2 %; Eosinophils # (auto) 0.03 K/uL (0-0.50); Eosinophils % (auto) 0.1 %; Hematocrit (blood only) 37.4 % (40.1-51.0); Hemoglobin 12.7 g/dl (14.0-18.0); Immature Granulocytes # (auto) 0.12 K/uL (0.00-0.02); Immature Granulocytes % (auto) 0.6 %; Lymphocytes # (auto) 1.97 K/uL (1.2-3.4); Lymphocytes % (auto) 9.8 %; Mean Corpuscular Hemoglobin 31.2 pg (25.0-34.0); Mean Corpuscular Volume 91.9 fL (80.0-100.0); Mean Platelet Volume 10.2 fL (9.4-12.4); Monocytes % (auto) 7.5 %; Neutrophils # (auto) 16.42 K/uL (1.4-6.5); Neutrophils % (auto) 81.8 %; Platelet Count 364 K/uL (130-400); RDW Coefficient of Variation 14.6 % (11.5-14.5); RDW Standard Deviation 49.4 fL (36.4-46.3); Red Blood Count 4.07 M/uL (4.63-6.08); White Blood Count 20.08 K/ul (4.8-10.8)
[2022-04-28] MEDS: PANTOprazole 40 MG TAB PO SCH (08:43)
[2022-04-28] MEDS: SPIRONOLACTONE 25 MG TAB PO SCH ×2 (08:43→21:13)
[2022-04-28] MEDS: ASPIRIN 81 MG ECTAB PO SCH (08:43)
[2022-04-28] MEDS: GABAPENTIN 300 MG CAP PO SCH ×2 (08:43→21:14)
[2022-04-28] MEDS: METOPROLOL SUCC 50MG EXT REL TAB PO SCH (08:44)
[2022-04-28] MEDS: DULoxetine HCL 60 MG CAP PO SCH (08:45)
[2022-04-28 09:17] LABS: BUN Creatinine Ratio 18.8 (10-20); C Reactive Protein 14.68 mg/dl (0-0.5); Calcium 9.3 mg/dl (8.5-10.1); Creatinine Clr Calc Pharmacy 38.9 ml/min; Est GFR (African American) 36.8 ml/min; Est GFR (Non-African American) 31.7 ml/min
--- NOTE | 2022-04-28 09:29 | Electrocardiogram Report ---
Test Reason : Blood Pressure : / mmHG Vent. Rate : 089 BPM Atrial Rate : 096 BPM P-R Int : 000 ms QRS Dur : 180 ms QT Int : 416 ms P-R-T Axes : 000 -59 107 degrees QTc Int : 506 ms Poor data quality, interpretation may be adversely affected Atrial fibrillation with premature ventricular or aberrantly conducted complexes Left axis deviation Left bundle branch block Abnormal ECG When compared with ECG of 10-MAR-2022 06:31, T wave inversion less evident in Lateral leads Confirmed by Dung Arguelles ([id number]) on 04/28/2022 9:29:29 AM Referred By: REFERRED SELF Confirmed By:Dung Arguelles
--- NOTE | 2022-04-28 09:57 | XRay Report ---
XR chest 1V portable HISTORY: Sepsis COMPARISON: Chest 03/09/2022. FINDINGS: No pneumothorax. No pleural effusions. The heart remains enlarged. There are poststernotomy changes and a left-sided pacemaker/defibrillator again noted. There is diffuse interstitial/vascular thickening consistent with mild congestive change. This is similar to the prior study. IMPRESSION: Cardiomegaly with mild pulmonary vascular congestion. ACT 112: Negative or not required by law. Electronically signed by: Boston North M.D. 04/28/2022 9:56 AM
--- NOTE | 2022-04-28 10:00 | Pharmacy Report ---
Pharmacy Glycemic Short Note 2 - Date of Service April 28, 2022 - Glycemic Short BSG Results (Last 24 hours): 04/27/22 04/27/22 04/27/22 20:18 20:29 23:17 Glucose 67 L POC Glucose 93 68 L* 04/28/22 04/28/22 04/28/22 01:49 07:35 08:11 Glucose 104 H POC Glucose 78 104 H OUTPATIENT ANTIDIABETIC REGIMEN: * Lantus 80 units SQ BID * Novolog 65 units SQ QID, plus sliding scale * Jardiance 25mg PO daily * HbA1c: 8.0% (03/11/22) ASSESSMENT: * Mr Goodrich is an 81yo diabetic male, admitted with hand infection/sepsis. * Pharmacy glycemic consult service has followed pt in the past. He required significantly less insulin as an inpatient than his home regimen. Will anticipate a similar response. * Pt was hypoglycemic prior to arrival (BSG 50mcg/mL at EMS arrival), and he required multiple doses of dextrose. * likely in the setting of decreased PO intake * BSGs have recovered this morning, but will wait to re-initiate basal insulin, and will do so conservatively. * Pt is currently receiving IV daptomycin and Zosyn. * Pt remains NPO for now. PLAN FOR INPATIENT GLYCEMIC CONTROL: * Hold outpatient oral diabetes medications * Basal insulin * Lantus: resume this evening, pending BSG trend * Bolus insulin * NovoLog per scale ACHS or Q6hrs while NPO * Goal Range: Low 110 mg/dL - High 140 mg/dL * Correction Factor: 20 mg/dL/unit * Nutritional / Prandial insulin per carb ratio of 1 unit per 6 grams CHO consumed
[2022-04-28] MEDS: INSULIN ASPART PER UNIT SC SCH ×3 (11:11→23:43)
--- NOTE | 2022-04-28 12:19 | Orthopedic Consultation ---
Date of Consultation April 28, 2022 Assessment & Plan (1) Finger osteomyelitis, left: Patient with longstanding poorly controlled diabetes and previous traumatic amputations but has some evidence of chronic osteomyelitis of the index finger. This does not appear acutely infected, with the exception of some dark discoloration and mild swelling extending along his palm and volar aspect of the forearm. I do think he will require at least amputation at the distal tip of the index finger, but before embarking on any surgical intervention, I would recommend getting an MRI of his hand to look for any evidence of acute infection or purulence extending into the palm. History of Present Illness Reason for Consultation: Left hand infection Requesting Physician: Dr. Dupont Attending Physician: Kelsey Simms MD History of Present Illness Mr. Goodrich is an 81-year-old male with poorly controlled diabetes who has had swelling in in his left hand and wounds on the left index finger for few weeks. He is a poor historian. Is difficult to tell how long this has been going on. He does report a previous history of traumatic amputation to multiple digits with a table saw back in the . He reports that he has never had any finger amputations for infection. He notes that he is completely insensate in the hand. He denies any pain in the hand. 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 Allergies Allergy/AdvReac Type Severity Reaction Status Date / Time No Known Drug Allergies Allergy Unknown NKDA Verified 04/25/22 13:36 Home Medications Medication Instructions Recorded Confirmed Type aspirin 81 mg tablet,delayed 81 mg PO QAM 06/04/18 04/27/22 History release nitroglycerin 0.4 mg sublingual 0.4 mg sublingual Q5M PRN Chest 02/25/19 04/27/22 History tablet (Nitrostat) Pain cholecalciferol (vitamin D3) 50 4,000 unit PO QAM 04/22/20 04/27/22 History mcg (2,000 unit) capsule blood-glucose meter,continuous #1 ea 11/10/20 04/25/22 History (Dexcom G6 Beach Expert misc) blood-glucose sensor (Dexcom G6 #3 ea 11/10/20 04/25/22 History Sensor device) blood-glucose transmitter (Dexcom #1 ea 11/10/20 04/25/22 History G6 Transmitter device) gabapentin 300 mg capsule 600 mg PO BID #360 caps 05/21/21 04/27/22 Rx rivaroxaban 15 mg tablet (Xarelto) 15 mg PO QPM #90 tabs 05/26/21 04/27/22 Rx spironolactone 25 mg tablet 25 mg PO BID #180 tabs 06/11/21 04/27/22 Rx duloxetine 60 mg capsule,delayed 60 mg PO QAM #90 caps 08/25/21 04/27/22 Rx release metoprolol succinate 100 mg 100 mg PO QAM #90 tabs 08/25/21 04/27/22 Rx tablet,extended release 24 hr montelukast 10 mg tablet 10 mg PO HS #90 tabs 09/10/21 04/27/22 Rx bumetanide 1 mg tablet 1 mg PO BID #200 tabs 11/23/21 04/27/22 Rx blood sugar diagnostic (FreeStyle 12/01/21 04/25/22 History Lite Strips) fenofibrate 54 mg tablet 54 mg PO HS 01/04/22 04/27/22 History ketoconazole 2 % topical cream 1 applic topical DAILY PRN Rash 01/04/22 04/27/22 History insulin glargine 100 unit/mL 80 unit (0.8 mL) subcut BID high 01/17/22 04/27/22 Rx subcutaneous solution (Lantus blood sugar #150 mL U-100 Insulin) atorvastatin 80 mg tablet 80 mg PO HS #90 tabs 03/19/22 04/27/22 Rx pantoprazole 20 mg tablet,delayed 20 mg PO QAM #90 tabs 03/19/22 04/27/22 Rx release insulin syringe-needle U-100 1 mL #600 ea 04/07/22 04/25/22 Rx 31 gauge x 5/16" (BD Insulin Syringe Ultra-Fine) insulin aspart U-100 100 unit/mL See Rx Instructions .Route 04/19/22 04/27/22 Rx subcutaneous solution (Novolog .COMPLEX #280 mL U-100 Insulin aspart) lisinopril 5 mg tablet 5 mg PO QAM #90 tabs 04/20/22 04/27/22 Rx doxycycline hyclate 100 mg tablet 100 mg PO BID 10 days #20 tabs 04/25/22 04/27/22 Rx empagliflozin 25 mg tablet 25 mg PO DAILY 04/27/22 04/27/22 History (Jardiance) Patient History Medical History Anxiety Atrial fibrillation Reason for Xarelto Follows with [facility] C4 cervical fracture No surgical intervention. Full ROM. Occurred 2-3 years ago- no current issues CAD (coronary artery disease) S/p RCA PCI in 1991, 1998, and 2004- totaling 5 stents to prox and mid RCA S/p 3 vessel CABG 2008 Cardiomyopathy Carotid artery stenosis, asymptomatic No hemodynamically significant stenosis per 2019 CTA of neck to ICAs bilaterally CHF (congestive heart failure) Chronic kidney disease, stage III (moderate) Depression DM type 2 (diabetes mellitus, type 2) IDDM Dysphagia Occasional (per ) Gastroparesis GERD (gastroesophageal reflux disease) Well controlled and stable Hearing deficit SYCUAN History of traumatic brain injury 2018 (after fall down stairs) > subdural hematoma resolved without surgical intervention, no residual issues Hyperlipidemia Hypertension ICD (implantable cardioverter-defibrillator) in place [employer]. Implanted ~2017 for sustained VT Insomnia LBBB (left bundle branch block) Chronic dating back to at least 07/2019 EKG per charts PAD (peripheral artery disease) H/o of right SFA/TP trunk/PT angioplasty at [facility] (2011) Peripheral neuropathy Poor historian Sensorineural hearing loss of both ears Situational depression Sleep apnea Refuses device per records Spinal stenosis Subdural hematoma 2018 (after fall down stairs) > subdural hematoma resolved without surgical intervention, no residual issues Venous insufficiency Surgical History History of anesthesia reaction Combative with emergence History of back surgery History of cardiac cath Multiple (hx stents) History of cataract surgery R/L History of cholecystectomy History of colonoscopy History of knee replacement Left Hx of angioplasty Hx of CABG CABG x3 (2008) S/P epidural steroid injection S/P ICD (internal cardiac defibrillator) procedure Family History Daughter Family history of reaction to anesthesia PONV Sister Cancer Father Family history of diabetes mellitus Grandmother (Maternal) Family history of diabetes mellitus Other No significant family history Denies family history of Ovarian cancer Prostate cancer Coronary heart disease Breast cancer Colorectal cancer Social History Smoking Status: Former smoker Tobacco Type: Cigarettes Age Started Using Tobacco: 19; Age Quit Using Tobacco: 49; packs per day: 2; Second Hand Exposure: Yes (SPOUSE SMOKES (OUTSIDE)); Hx Alcohol Use: No Hx Substance Use: No Preferred Language: Macedonian Communication Ability: Effective Visual Impairment: Limited Hearing Ability: Hard of Hearing Dishcloth Folder Required: No Beliefs That Will Affect Care: None marital status: Current Living Situation: Spouse current occupational status: retired 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 No fluctuance or palpable fluid collections. He denies any tenderness palpation anywhere in the wrist, palm, or out into his digits. He has fairly limited finger range of motion, but he says that this is chronic and not significantly changed from his baseline. No significant swelling, erythema, or tenderness palpation along the volar aspect of any of his digits. He has obvious previous amputations of multiple digits. It looks like the index finger has been previously amputated through the distal phalanx level, middle finger through the DIP joint level, ring finger through the distal phalanx level, and small finger through the proximal phalanx level. No amputation of the thumb. There are no obvious wounds on the ring finger, small finger, or thumb. There is about a 1 cm circumferential dry scab at the distal tip of the index finger. No active or expressible drainage. There are multiple small punctate scabs on the tip of the middle finger, each about 2 mm in diameter. No active or expressible drainage. Results & Data ([facility]) Vital Signs (Past 12 Hours) Vital Signs Pulse Resp BP Pulse Ox Pulse Ox O2 Del Method O2 Del Method 04/28/22 10:44 69 16 122/73 98 Oxymask 04/28/22 09:56 99 Oxymask 04/28/22 07:40 66 18 120/64 98 Oxymask 04/28/22 06:03 71 20 124/68 98 Oxyhood 04/28/22 04:00 63 18 132/67 98 Oxyhood 04/28/22 02:57 99 Oxyhood 04/28/22 02:57 70 20 129/63 98 Oxyhood 04/28/22 02:00 76 22 125/86 98 Non-rebreather O2 Flow Rate 04/28/22 10:44 5 04/28/22 09:56 7 04/28/22 07:40 7 04/28/22 06:03 7 04/28/22 04:00 04/28/22 02:57 04/28/22 02:57 7 04/28/22 02:00 7 Laboratory Results WBC-20.08 ESR-102 CRP-14.68 HgbA1c (03/11/22) - 8.0 All recorded HgbA1c values 05/2017 - 03/2022 are between 8.0-12.5 Diagnostic Findings New x-rays of the left hand are reviewed. Most significant finding is osteolysis of the distal phalanx of the index finger, likely consistent with chronic osteomyelitis. Also noted are amputations through the DIP joint level of the middle finger, distal phalanx level of the ring finger, and proximal phalanx level of the small finger. There are thin metallic foreign bodies that look consistent with thin wires in the index, middle, and ring fingers; these are all new since previous comparison study in December 2018.
--- NOTE | 2022-04-28 15:36 | History & Physical Bridge Note ---
Date of Service April 28, 2022 History & Physical Bridge Note I have examined the patient, reviewed the History & Physical and in the interval since the performance of the History & Physical I have noted the following changes of clinical significance: Pt denies pain in hand due to neuropathy, but does notice the swelling. He is weaned down to 4L Oxymask and denies SOB, denies CP. I weaned him further to 3L and POx remained at 98%. I discussed the case with Ortho who is awaiting hand MRI before determining about hand surgery. Hypoglycemia--> allow diet now, pharmacy managing insulin but presume he will have less requirement at least for now but suspect he's labile. Acute respiratory failure with hypoxia-2/2 HFrEF-diuresing, weaning off O2 Sepsis, POA--> 2/2 hand infection--> continue abx, follow cxs, Ortho consulted Metabolic encephalopathy-2/2 sepsis, hypoglycemia--> now reolved For acute on chronic HFrEF--> Ok to continue lasix 40mg IV daily for now for diuresis, watch renal function, holding ACEi BCxs neg, follow, continue Zosyn and Dapto Ok to continue home ASA-restarted . Hold Xarelto in case of need for hand surgery Restart home duloxetine Myocardial demand ischemia--> mildly elevated trop, no CP, no ECG hcanges, not TN Other PMH: LBBB PAD w/ stens gastroparesis neuropathy 2/2 DMII Lumbar stenosis Afib on Xarelto CAD s/p CABG CKD stage III DMII HFrEF VT s/p ICD SUNNY not on CPAP IgG Lambda MGUS
[2022-04-28] MEDS: LANTUS PER UNIT CHARGE SQ SCH (20:36)
[2022-04-28] MEDS: ATORVASTATIN 40 MG TAB PO SCH (21:14)
[2022-04-28] MEDS: MONTELUKAST SODIUM 10 MG TABLET PO SCH (21:15)
[2022-04-28] MEDS: DAPTOmycin 550 MG in SYRINGE 0 ML IV SCH (23:25)
[2022-04-29] MEDS: PIPERACILLIN/TAZOBACTAM 4.5 GM in DEXTROSE 5% 100 ML IV SCH ×3 (03:26→20:12)
[2022-04-29] MEDS: INSULIN ASPART PER UNIT SC SCH ×5 (06:07→20:25)
[2022-04-29 07:30] LABS: Basophils # (auto) 0.05 K/uL (0-0.2); Basophils % (auto) 0.3 %; Eosinophils # (auto) 0.37 K/uL (0-0.50); Eosinophils % (auto) 2.4 %; Hematocrit (blood only) 38.7 % (40.1-51.0); Hemoglobin 13.1 g/dl (14.0-18.0); Immature Granulocytes # (auto) 0.07 K/uL (0.00-0.02); Immature Granulocytes % (auto) 0.5 %; Lymphocytes % (auto) 8.4 %; Mean Corpuscular Hemoglobin 31.3 pg (25.0-34.0); Mean Corpuscular Hgb Conc 33.9 g/dL (32.0-36.0); Mean Corpuscular Volume 92.4 fL (80.0-100.0); Mean Platelet Volume 10.3 fL (9.4-12.4); Monocytes % (auto) 9.1 %; Neutrophils # (auto) 12.22 K/uL (1.4-6.5); Neutrophils % (auto) 79.3 %; Platelet Count 380 K/uL (130-400); RDW Coefficient of Variation 14.7 % (11.5-14.5); RDW Standard Deviation 49.8 fL (36.4-46.3); Red Blood Count 4.19 M/uL (4.63-6.08); White Blood Count 15.41 K/ul (4.8-10.8)
[2022-04-29 08:09] LABS: C Reactive Protein 11.12 mg/dl (0-0.5); Calcium 9.6 mg/dl (8.5-10.1); Creatinine Clr Calc Pharmacy 42.2 ml/min; Est GFR (African American) 42.6 ml/min; Est GFR (Non-African American) 36.7 ml/min; Magnesium 2.1 mg/dl (1.7-2.4); Potassium 3.5 mmol/L (3.5-5.1)
[2022-04-29] MEDS: GABAPENTIN 300 MG CAP PO SCH ×2 (08:13→20:12)
[2022-04-29] MEDS: PANTOprazole 40 MG TAB PO SCH (08:13)
[2022-04-29] MEDS: METOPROLOL SUCC 50MG EXT REL TAB PO SCH (08:13)
[2022-04-29] MEDS: DULoxetine HCL 60 MG CAP PO SCH (08:13)
[2022-04-29] MEDS: ASPIRIN 81 MG ECTAB PO SCH (08:13)
[2022-04-29] MEDS: SPIRONOLACTONE 25 MG TAB PO SCH ×2 (08:13→20:13)
[2022-04-29] MEDS ORDERED: FUROSEMIDE 40 MG/4 ML VIAL IV SCH (09:00)
--- NOTE | 2022-04-29 13:00 | Magnetic Resonance Report ---
MR hand LT wo con HISTORY: 81 years-old Male Left hand infection patient presents with acute infection of the left ruth d. COMPARISON: CT left hand 04/28/2020, left hand radiographs 04/27/2020. TECHNIQUE: Multiple multisequence MRI of the left hand was obtained without the use of IV contrast. FINDINGS: Susceptibility artifact related to the foreign bodies within the second, third and fourth fingers randle its evaluation of these digits. Erosive changes involving the distal phalangeal tuft of the second fi nger with fracture is not well dilated by MRI. Prior partial amputation of the fifth digit. Chronic e rosive changes of the distal third and fourth fingers are also better evaluated on prior CT. There is diffuse subcutaneous, deep tissue and intramuscular edema within the hand. Edema is also not ed within the carpal tunnel with mild tenosynovitis of the fifth flexor compartment. Motion degraded exam. There is moderate thickening with irregularity involving the flexor digitorum profundus tendon of the second finger which demonstrates a serpiginous/retracted course within the hand. The distal in sertional fibers of the tendon are not visualized. No focal fluid collection to suggest abscess. Ther e is mostly mild multifocal osteoarthritis. IMPRESSION: 1. Limited exam secondary to motion and susceptibility artifact related to foreign bodies. 2. Partial amputation of the fifth finger with erosive changes of the second, third and fourth distal fingers, better evaluated on the comparison CT study. 3. Distal tear with retraction involving the second finger flexor digitorum profundus tendon. 4. Diffuse subcutaneous, deep tissue and intramuscular edema without abscess. ACT 112: Negative or not required by law. The above report was generated using voice recognition software. It may contain grammatical, syntax o r spelling errors. Dictated: 04/29/2022 11:55 AM Transcribed: 04/29/2022 12:30 PM Jo [id number] Electronically signed by: Kana Santos M.D. 04/29/2022 12:59 PM
--- NOTE | 2022-04-29 13:04 | Pharmacy Report ---
Pharmacy Glycemic Short Note 2 - Date of Service April 29, 2022 - Glycemic Short BSG Results (Last 24 hours): 04/28/22 04/28/22 04/28/22 13:04 13:04 16:25 Glucose POC Glucose 138 H 138 H 105 H 04/28/22 04/28/22 04/29/22 20:00 23:23 05:43 Glucose POC Glucose 163 H 101 H 67 L* 04/29/22 04/29/22 04/29/22 05:45 06:14 06:51 Glucose 113 H POC Glucose 84 111 H 04/29/22 12:39 Glucose POC Glucose 113 H OUTPATIENT ANTIDIABETIC REGIMEN: * Lantus 80 units SQ BID * Novolog 65 units SQ QID, plus sliding scale * Jardiance 25mg PO daily * HbA1c: 8.0% (03/11/22) ASSESSMENT: 04/29 * Patient's BSG 67 mg/dL this morning after receiving 15 units of lantus last PM, patient still NPO, will reduce lantus scale * Continue current novolog parameters 04/28 * Mr Goodrich is an 81yo diabetic male, admitted with hand infection/sepsis. * Pharmacy glycemic consult service has followed pt in the past. He required significantly less insulin as an inpatient than his home regimen. Will anticipate a similar response. * Pt was hypoglycemic prior to arrival (BSG 50mcg/mL at EMS arrival), and he required multiple doses of dextrose. * likely in the setting of decreased PO intake * BSGs have recovered this morning, but will wait to re-initiate basal insulin, and will do so conservatively. * Pt is currently receiving IV daptomycin and Zosyn. * Pt remains NPO for now. PLAN FOR INPATIENT GLYCEMIC CONTROL: * Hold outpatient oral diabetes medications * Basal insulin * Lantus: 0/7/15 units per scale at HS * Bolus insulin * NovoLog per scale ACHS or Q6hrs while NPO * Goal Range: Low 110 mg/dL - High 140 mg/dL * Correction Factor: 20 mg/dL/unit * Nutritional / Prandial insulin per carb ratio of 1 unit per 6 grams CHO consumed
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
[2022-04-29] MEDS ORDERED: fentaNYL citrate 100 MCG/2 ML VIAL ONE (13:43)
[2022-04-29] MEDS ORDERED: BACITRACIN OINT 15 GM TUBE ONE (14:02)
[2022-04-29] MEDS ORDERED: BUPIVACAINE 0.5 % 5 MG/1 ML MPF 30ML VIAL ONE (14:03)
--- NOTE | 2022-04-29 14:21 | History & Physical Bridge Note ---
Date of Service April 29, 2022 History & Physical Bridge Note I have examined the patient, reviewed the History & Physical and in the interval since the performance of the History & Physical I have noted the following changes of clinical significance: no changes noted I saw the patient in preoperative holding area. we discussed risk benefits reasonable outcomes and expectations we will plan for: Left index finger saucerization of osteomyelitis, irrigation and debridement of septic flexor tenosynovitis, Excision of flexor digitorum profundus tendon Risk and benefits have been discussed including but not limited to infection stiffness loss of motion failure to improve sepsis etc.
[2022-04-29] MEDS ORDERED: ePHEDrine sulfate 50 MG/ML AMP IV PRN (14:28)
[2022-04-29] MEDS ORDERED: ONDANSETRON INJ 2 MG/ML 2 ML VIAL IV PRN (14:28)
[2022-04-29] MEDS ORDERED: ATROPINE SULFATE 0.1 MG/ML 10ML SYR IV PRN (14:28)
[2022-04-29] MEDS ORDERED: fentaNYL citrate 100 MCG/2 ML VIAL IV PRN (14:28)
[2022-04-29] MEDS ORDERED: PROPOFOL IV EMULSION 10 MG/ML 20 ML VIAL IV ONE (15:15)
[2022-04-29] MEDS ORDERED: LIDOCAINE 2% 20 MG/ML 5 ML SYR IV ONE (15:15)
[2022-04-29] MEDS ORDERED: ONDANSETRON INJ 2 MG/ML 2 ML VIAL ONE (15:15)
--- NOTE | 2022-04-29 15:27 | Post Operative Brief Note ---
Immediate Post Op Note v1 Date of Surgery April 29, 2022 Pre & Post Diagnosis Operation Date: 04/29/22 14:20 Pre-Op Diagnosis: HAND INFECTION, SEPSIS Post-Op Diagnosis: HAND INFECTION, SEPSIS I identified the patient and participated in the time-out.: Yes Procedure Operation Date: 04/29/22 14:20 Actual Procedures p Left Index Finger Incision and Drainage Flexor Tenosynovitis, amputation left flexor digitorum profundus tendon.(Left) - Humza Zurita MD Surgeon Humza Zurita MD Housekeeper And Laundry Assistant Brando Posada PA-C Estimated Blood Loss 5 Findings Consistent with Post-Op Diagnosis Osteomyelitis of the tip of the index finger. No evidence of residual osteomyelitis after surgery. Septic flexor tenosynovitis seen. No evidence of abscess or other infection. No further surgical plans at this point in time
--- NOTE | 2022-04-29 16:19 | Anesthesiology Progress Note ---
Date of Service April 29, 2022 Anesthesia Post Procedure Vital Signs Vital Signs: Temp Pulse Pulse Resp BP BP Pulse Ox 04/29/22 16:15 81 18 139/73 96 04/29/22 16:05 73 21 130/70 97 04/29/22 15:55 84 23 114/78 95 04/29/22 15:49 36 C L 87 18 139/79 94 04/29/22 14:12 36.5 C 84 20 144/87 H 100 04/29/22 12:50 04/29/22 11:40 36.6 C 84 20 122/79 96 04/29/22 08:00 04/29/22 07:53 36.8 C 78 17 122/76 98 04/29/22 03:25 36.8 C 84 14 115/67 95 04/28/22 23:27 36.7 C 73 14 135/81 94 04/28/22 22:52 67 04/28/22 22:50 36.7 C 71 22 130/59 L 96 04/28/22 22:08 04/28/22 19:00 36.6 C 75 20 141/79 H 96 Pulse Ox O2 Del Method O2 Flow Rate O2 Flow Rate 04/29/22 16:15 Nasal Cannula 2 04/29/22 16:05 Nasal Cannula 2 04/29/22 15:55 Nasal Cannula 4 04/29/22 15:49 Nasal Cannula 4 04/29/22 14:12 Nasal Cannula 2 04/29/22 12:50 94 3 04/29/22 11:40 Nasal Cannula 2 04/29/22 08:00 Nasal Cannula 3 04/29/22 07:53 Nasal Cannula 2 04/29/22 03:25 Room Air 3 04/28/22 23:27 Nasal Cannula 3 04/28/22 22:52 04/28/22 22:50 Room Air 04/28/22 22:08 Nasal Cannula 3 04/28/22 19:00 Nasal Cannula Transfer of Care Handoff Completed per policy Notes Mental Status: alert / awake / arousable Patient Amnestic to Procedure: Yes Nausea / Vomiting: adequately controlled Pain: adequately controlled Airway Patency, RR, SpO2: stable & adequate BP & HR: stable & adequate Hydration State: stable & adequate Anesthetic Complications: no major complications apparent
--- NOTE | 2022-04-29 18:16 | Hospitalist Progress Note ---
Date of Service April 29, 2022 Assessment & Plan (1) Infection of left hand: Plan: Patient is an 81 y/o M w/ PMHx of DM2 on insulin with severe peripheral neuropathy, HFrEF, multivessel CAD s/p CABG, CKD3, afib on Xarelto, and lumbar spinal stenosis who presents with ongoing left hand infection from 04/14 since he cut himself with a serrated knife while cutting an onion. He has failed outpatient antibiotics cefdinir x 10 days and doxy x 2 days. With sepsis, POA- leukocytosis to 18.79 On admission and is now improved on 15. With tachycardia now improved -Was given vanc/zosyn in ED and then switched to daptomycin and IV Zosyn after admission -Cultures pending - CT hand with possible osteomyelitis acute versus chronic, edema, cellulitis - consult ortho appreciated-obtain MRI of the hand 04/29 which shows significant edema and tenosynovitis -Now s/p amputation of distal finger and flexor tendon removal on 04/29 -Postoperative care as per orthopedic surgery -CRP and ESR significantly elevated-follow along with CBC and CMP -Will likely need prolonged course of antibiotics upon discharge and close follow-up with orthopedics (2) Sepsis: Plan: Sepsis, POA--> 2/2 hand infection, OM, septic tenosynovitis flexor tendons of hand --> continue abx broad spectrum with Zosyn and Dapto, follow cxs - Ortho consulted and now s/p amputation of distal index finger and tendon rem oval,debridement (3) Hypoxia: Plan: Acute respiratory failure with hypoxia-2/2 HFrEF-diuresing, weaning off O2 (4) Metabolic encephalopathy: Plan: Metabolic encephalopathy-2/2 sepsis, hypoglycemia--> now resolved CT head negative (5) Chronic HFrEF (heart failure with reduced ejection fraction): Plan: acute on chronic HFrEF, presented with pulm edema, significant hypoxia diuresed with IV lasix several doses initially, now improved, weaned down to 2LNC ECHO 2020 with LVEF 35-40%, mod-severe LVH, LAD territory WMAs -dc IV lasix and revert to home po Bumex 1mg bid -continue aldactone, Toprol XL -hold lisinopril -Daily weights, strict I's and O's (6) Hypoglycemia: Plan: - bsg 50 at ems arrival. Had several lows after admission pharmacy glycemic consult (restart insulin cautiously). 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, with long- term current use of insulin: Plan: - pharmacy glycemic consult as above Hemoglobin A1c 8.0% in 03/2022 (11) CAD, multiple vessel: Plan: s/p CABG continue ASA, statin, beta elías holding ACEi (12) Chronic kidney disease, stage III (moderate): Plan: Creatinine is improved since admission than 1.7 -Avoid nephrotoxins -renally dose meds when appropriate -follow BMP (13) Diabetic peripheral neuropathy: Plan: Severe in hands and feet, has no sensation Continue duloxetine, gabapentin Has difficulty with falls secondary to neuropathy (14) PAD (peripheral artery disease): Plan: Continue aspirin, Xarelto, statin (15) Paroxysmal ventricular tachycardia: Plan: Status post ICD placement (16) Presence of single chamber implantable cardioverter-defibrillator (ICD): Plan: Noted (17) Sleep apnea: Plan: does not use CPAP Plan DVT prophylaxis-Xarelto Disposition-continued stay on telemetry for treatment of infection and recovery from hand surgery. PT/OT recommending rehab and referrals have been placed. Patient is not keen on the idea of going to rehab, but encouragement given. His family is adamant that he go to rehab as he is not safe at home with multiple falls and with ongoing infection and complex care Discussed his care with his granddaughter, Tanika Robertson cell phone , on the phone who is an ICU nurse at this facility Admission and Anticipated Discharge Date Admission Date: April 28, 2022 Subjective Patient had his hand surgery today I saw him postoperatively. He denies any pain in the hand. He denies chest pain or shortness of breath. He has no other complaints. His family is very concerned about him being able to come home safely without rehab placement first as he is already very unstable on his feet due to significant neuropathy and back issues. Telemetry with atrial fibrillation, PVCs, rates in 70s to 80s Review of Systems Review of Systems: All systems reviewed & are unremarkable except as noted in HPI & below Physical Exam Constitutional: WD/WN, vitals as above Eyes: + anicteric sclerae Neck: trachea midline, no thyromegaly Respiratory: normal respiratory effort, lungs clear to auscultation Cardiovascular: Rate/Rhythm: regular rate and + irregularly irregular Heart Sounds: no murmur Extremities: no edema Chest (Breasts): Chest: normal inspection of chest Gastrointestinal (Abdomen): normal bowel sounds, soft, nontender, no hepatosplenomegaly Musculoskeletal: Extremities: + extremities abnormal to inspection (Left hand wrapped in dressing and gauze not removed), no cyanosis and no clubbing Skin: no rashes, warm and dry Neurologic: moves all extremities and awake; no focal motor deficits Psychiatric: Orientation: alert, oriented to person, oriented to place and cooperative Lymphatic: no lymphedema Results & Data Results & Data ([facility]) Vital Signs (Past 12 Hours) Vital Signs Temp Pulse Resp BP BP Pulse Ox Pulse Ox 04/29/22 16:45 36.7 C 84 18 136/83 93 04/29/22 16:27 36.5 C 79 20 131/67 97 04/29/22 16:15 81 18 139/73 96 04/29/22 16:05 73 21 130/70 97 04/29/22 15:55 84 23 114/78 95 04/29/22 15:49 36 C L 87 18 139/79 94 04/29/22 14:12 36.5 C 84 20 144/87 H 100 04/29/22 12:50 94 04/29/22 11:40 36.6 C 84 20 122/79 96 04/29/22 08:00 04/29/22 07:53 36.8 C 78 17 122/76 98 O2 Del Method O2 Flow Rate O2 Flow Rate 04/29/22 16:45 Nasal Cannula 3 04/29/22 16:27 Nasal Cannula 2 04/29/22 16:15 Nasal Cannula 2 04/29/22 16:05 Nasal Cannula 2 04/29/22 15:55 Nasal Cannula 4 04/29/22 15:49 Nasal Cannula 4 04/29/22 14:12 Nasal Cannula 2 04/29/22 12:50 3 04/29/22 11:40 Nasal Cannula 2 04/29/22 08:00 Nasal Cannula 3 04/29/22 07:53 Nasal Cannula 2 Laboratory Results 04/29/22 04/29/22 04/29/22 Range/Units 19:55 16:38 15:50 WBC (4.8-10.8) K/ul RBC (4.63-6.08) M/uL Hgb (14.0-18.0) g/dl Hct (40.1-51.0) % MCV (80.0-100.0) fL MCH (25.0-34.0) pg MCHC (32.0-36.0) g/dL RDW Std Deviation (36.4-46.3) fL RDW Coeff of Paulo (11.5-14.5) % Plt Count (130-400) K/uL MPV (9.4-12.4) fL Immature Gran % (Auto) % Neut % (Auto) % Lymph % (Auto) % Ness % (Auto) % Eos % (Auto) % Baso % (Auto) % Neut # (Auto) (1.4-6.5) K/uL Lymph # (Auto) (1.2-3.4) K/uL Ness # (Auto) (0.24-0.82) K/uL Eos # (Auto) (0-0.50) K/uL Baso # (Auto) (0-0.2) K/uL Immature Gran # (Auto) (0.00-0.02) K/uL ESR (0-20) mm/hr Sodium (136-145) mmol/L Potassium (3.5-5.1) mmol/L Chloride (98-107) mmol/L Carbon Dioxide (21-32) mmol/L Anion Gap (3-11) BUN (6-23) mg/dl Creatinine (0.6-1.4) mg/dl Est Cr Clr Drug Dosing ml/min Est GFR ( Amer) ml/min Est GFR (Non-Af Amer) ml/min BUN/Creatinine Ratio (10-20) Glucose (70-99(Fasting)) mg/dl POC Glucose 127 H 144 H 129 H (70-99) mg/dl Calcium (8.5-10.1) mg/dl Magnesium (1.7-2.4) mg/dl Total Creatine Kinase (30-223) U/L C-Reactive Protein (0-0.5) mg/dl Procalcitonin (0-0.5) ng/ml 04/29/22 04/29/22 04/29/22 Range/Units 12:39 06:51 06:51 WBC (4.8-10.8) K/ul RBC (4.63-6.08) M/uL Hgb (14.0-18.0) g/dl Hct (40.1-51.0) % MCV (80.0-100.0) fL MCH (25.0-34.0) pg MCHC (32.0-36.0) g/dL RDW Std Deviation (36.4-46.3) fL RDW Coeff of Paulo (11.5-14.5) % Plt Count (130-400) K/uL MPV (9.4-12.4) fL Immature Gran % (Auto) % Neut % (Auto) % Lymph % (Auto) % Ness % (Auto) % Eos % (Auto) % Baso % (Auto) % Neut # (Auto) (1.4-6.5) K/uL Lymph # (Auto) (1.2-3.4) K/uL Ness # (Auto) (0.24-0.82) K/uL Eos # (Auto) (0-0.50) K/uL Baso # (Auto) (0-0.2) K/uL Immature Gran # (Auto) (0.00-0.02) K/uL ESR (0-20) mm/hr Sodium 136 (136-145) mmol/L Potassium 3.5 (3.5-5.1) mmol/L Chloride 96 L (98-107) mmol/L Carbon Dioxide 32 (21-32) mmol/L Anion Gap 8 (3-11) BUN 34 H (6-23) mg/dl Creatinine 1.70 H (0.6-1.4) mg/dl Est Cr Clr Drug Dosing 42.2 ml/min Est GFR ( Amer) 42.6 ml/min Est GFR (Non-Af Amer) 36.7 ml/min BUN/Creatinine Ratio 20.0 (10-20) Glucose 113 H (70-99(Fasting)) mg/dl POC Glucose 113 H (70-99) mg/dl Calcium 9.6 (8.5-10.1) mg/dl Magnesium 2.1 (1.7-2.4) mg/dl Total Creatine Kinase 191 (30-223) U/L C-Reactive Protein 11.12 H (0-0.5) mg/dl Procalcitonin 3.52 H (0-0.5) ng/ml 04/29/22 04/29/22 04/29/22 Range/Units 06:51 06:51 06:14 WBC 15.41 H (4.8-10.8) K/ul RBC 4.19 L (4.63-6.08) M/uL Hgb 13.1 L (14.0-18.0) g/dl Hct 38.7 L (40.1-51.0) % MCV 92.4 (80.0-100.0) fL MCH 31.3 (25.0-34.0) pg MCHC 33.9 (32.0-36.0) g/dL RDW Std Deviation 49.8 H (36.4-46.3) fL RDW Coeff of Paulo 14.7 H (11.5-14.5) % Plt Count 380 (130-400) K/uL MPV 10.3 (9.4-12.4) fL Immature Gran % (Auto) 0.5 % Neut % (Auto) 79.3 % Lymph % (Auto) 8.4 % Ness % (Auto) 9.1 % Eos % (Auto) 2.4 % Baso % (Auto) 0.3 % Neut # (Auto) 12.22 H (1.4-6.5) K/uL Lymph # (Auto) 1.30 (1.2-3.4) K/uL Ness # (Auto) 1.40 H (0.24-0.82) K/uL Eos # (Auto) 0.37 (0-0.50) K/uL Baso # (Auto) 0.05 (0-0.2) K/uL Immature Gran # (Auto) 0.07 H (0.00-0.02) K/uL ESR 107 H (0-20) mm/hr Sodium (136-145) mmol/L Potassium (3.5-5.1) mmol/L Chloride (98-107) mmol/L Carbon Dioxide (21-32) mmol/L Anion Gap (3-11) BUN (6-23) mg/dl Creatinine (0.6-1.4) mg/dl Est Cr Clr Drug Dosing ml/min Est GFR ( Amer) ml/min Est GFR (Non-Af Amer) ml/min BUN/Creatinine Ratio (10-20) Glucose (70-99(Fasting)) mg/dl POC Glucose 111 H (70-99) mg/dl Calcium (8.5-10.1) mg/dl Magnesium (1.7-2.4) mg/dl Total Creatine Kinase (30-223) U/L C-Reactive Protein (0-0.5) mg/dl Procalcitonin (0-0.5) ng/ml 04/29/22 04/29/22 Range/Units 05:45 05:43 WBC (4.8-10.8) K/ul RBC (4.63-6.08) M/uL Hgb (14.0-18.0) g/dl Hct (40.1-51.0) % MCV (80.0-100.0) fL MCH (25.0-34.0) pg MCHC (32.0-36.0) g/dL RDW Std Deviation (36.4-46.3) fL RDW Coeff of Paulo (11.5-14.5) % Plt Count (130-400) K/uL MPV (9.4-12.4) fL Immature Gran % (Auto) % Neut % (Auto) % Lymph % (Auto) % Ness % (Auto) % Eos % (Auto) % Baso % (Auto) % Neut # (Auto) (1.4-6.5) K/uL Lymph # (Auto) (1.2-3.4) K/uL Ness # (Auto) (0.24-0.82) K/uL Eos # (Auto) (0-0.50) K/uL Baso # (Auto) (0-0.2) K/uL Immature Gran # (Auto) (0.00-0.02) K/uL ESR (0-20) mm/hr Sodium (136-145) mmol/L Potassium (3.5-5.1) mmol/L Chloride (98-107) mmol/L Carbon Dioxide (21-32) mmol/L Anion Gap (3-11) BUN (6-23) mg/dl Creatinine (0.6-1.4) mg/dl Est Cr Clr Drug Dosing ml/min Est GFR ( Amer) ml/min Est GFR (Non-Af Amer) ml/min BUN/Creatinine Ratio (10-20) Glucose (70-99(Fasting)) mg/dl POC Glucose 84 67 L* (70-99) mg/dl Calcium (8.5-10.1) mg/dl Magnesium (1.7-2.4) mg/dl Total Creatine Kinase (30-223) U/L C-Reactive Protein (0-0.5) mg/dl Procalcitonin (0-0.5) ng/ml PG Care Time/CCT Total # of Minutes Spent Total Time Spent with Patient: Total time spent is greater than 50% in coordination of care (as documented) at patient's floor/unit and/or counseling patient: Coding Level of Care Code 31775 Subseq Hosp Care Lvl 3 Diagnoses Infection of left hand L08.9 Sepsis A41.9 Hypoxia R09.02 Metabolic encephalopathy G93.41 Chronic HFrEF (heart failure with reduced ejection fraction) I50.22 Hypoglycemia E16.2 Atrial fibrillation I48.91 Atrial fibrillation type: unspecified Demand ischemia of myocardium I24.8 Hypertension I10 Hypertension type: essential hypertension 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
[2022-04-29] MEDS: ATORVASTATIN 40 MG TAB PO SCH (20:12)
[2022-04-29] MEDS: MONTELUKAST SODIUM 10 MG TABLET PO SCH (20:12)
[2022-04-29] MEDS: LANTUS PER UNIT CHARGE SQ SCH (20:13)
[2022-04-29] MEDS: DAPTOmycin 550 MG in SYRINGE 0 ML IV SCH (23:13)
[2022-04-30] MEDS ORDERED: HYDROCODONE/ACETAMOPHEN 5/325MG TAB PO PRN (00:04)
[2022-04-30] MEDS ORDERED: ALUMINUM/MAGNESIUM SUSP 30 ML UDC PO PRN (00:04)
[2022-04-30] MEDS ORDERED: SODIUM CHLORIDE 0.9% 1000ML 1,000 ML IV SCH (00:04)
[2022-04-30] MEDS ORDERED: bisacodyL 10 MG SUPP PR PRN (00:04)
[2022-04-30] MEDS ORDERED: diphenhydrAMINE Capsule 25 MG CAP PO PRN (00:04)
[2022-04-30] MEDS ORDERED: NALOXONE HCL 0.4 MG/1 ML VIAL/CARP IV PRN (00:04)
[2022-04-30] MEDS ORDERED: MAGNESIUM HYDROXIDE SUSP 30 ML UDC PO PRN (00:04)
[2022-04-30] MEDS: DOCUSATE SODIUM 100 MG CAP PO SCH ×3 (03:29→20:36)
[2022-04-30] MEDS: SENNA 8.6 MG TAB PO SCH ×2 (03:29→20:37)
[2022-04-30] MEDS: PIPERACILLIN/TAZOBACTAM 4.5 GM in DEXTROSE 5% 100 ML IV SCH ×3 (03:50→20:35)
[2022-04-30 06:26] LABS: Basophils # (auto) 0.07 K/uL (0-0.2); Basophils % (auto) 0.5 %; Eosinophils # (auto) 0.27 K/uL (0-0.50); Eosinophils % (auto) 1.8 %; Hematocrit (blood only) 37.6 % (40.1-51.0); Hemoglobin 12.6 g/dl (14.0-18.0); Immature Granulocytes # (auto) 0.07 K/uL (0.00-0.02); Immature Granulocytes % (auto) 0.5 %; Lymphocytes # (auto) 1.51 K/uL (1.2-3.4); Lymphocytes % (auto) 10.2 %; Mean Corpuscular Hemoglobin 31.2 pg (25.0-34.0); Mean Corpuscular Hgb Conc 33.5 g/dL (32.0-36.0); Mean Corpuscular Volume 93.1 fL (80.0-100.0); Mean Platelet Volume 10.1 fL (9.4-12.4); Monocytes # (auto) 1.34 K/uL (0.24-0.82); Neutrophils # (auto) 11.57 K/uL (1.4-6.5); Platelet Count 379 K/uL (130-400); RDW Coefficient of Variation 14.6 % (11.5-14.5); RDW Standard Deviation 50.1 fL (36.4-46.3); Red Blood Count 4.04 M/uL (4.63-6.08); White Blood Count 14.83 K/ul (4.8-10.8)
[2022-04-30 07:32] LABS: Albumin Globulin Ratio 0.8 (0.9-2); Albumin Level 3.3 gm/dl (3.4-5.0); BUN Creatinine Ratio 19.2 (10-20); Bilirubin,Total 0.9 mg/dl (0.2-1.0); C Reactive Protein 7.73 mg/dl (0-0.5); Calcium 9.6 mg/dl (8.5-10.1); Creatinine Clr Calc Pharmacy 40.6 ml/min; Est GFR (African American) 43.5 ml/min; Est GFR (Non-African American) 37.5 ml/min; Magnesium 2.1 mg/dl (1.7-2.4); Potassium 4.2 mmol/L (3.5-5.1); Total Protein 7.3 gm/dl (6.0-8.3)
[2022-04-30] MEDS: ASPIRIN 81 MG ECTAB PO SCH (08:38)
[2022-04-30] MEDS: BUMETANIDE 1 MG TAB PO SCH ×2 (08:38→17:28)
[2022-04-30] MEDS: GABAPENTIN 300 MG CAP PO SCH ×2 (08:39→20:35)
[2022-04-30] MEDS: DULoxetine HCL 60 MG CAP PO SCH (08:39)
[2022-04-30] MEDS: METOPROLOL SUCC 50MG EXT REL TAB PO SCH (08:40)
[2022-04-30] MEDS: SPIRONOLACTONE 25 MG TAB PO SCH ×2 (08:40→20:36)
[2022-04-30] MEDS: PANTOprazole 40 MG TAB PO SCH (08:40)
--- NOTE | 2022-04-30 09:14 | Orthopedic Progress Note ---
Date of Service April 30, 2022 Assessment & Plan (1) Finger osteomyelitis, left: Plan: POD #1 s/p Left Index Finger Incision and Drainage Flexor Tenosynovitis, amputation left flexor digitorum profundus tendon. Dressing In place today. No bacteria seen on gram stain. Awaiting final culture results. Plan for dressing change tomorrow. Continue current IV antibiotics. Since the infected bone was excised, his IV antibiotics may need to be approximately 2 weeks then transition to oral antibiotics. Admission and Anticipated Discharge Date Admission Date: April 28, 2022 Subjective Doing well today. States there is some pain within the hand but it has been controlled. No new complaints as far as the left hand. Physical Exam Constitutional: WD/WN, vitals as above no acute distress Musculoskeletal: Extremities: + hand abnormality Left (Dressing is C/D/I. No bleeding noted through the dressing.) Results & Data ([facility]) Vital Signs (Past 12 Hours) Vital Signs Temp Pulse Pulse Resp BP Pulse Ox Pulse Ox 04/30/22 06:20 36.7 C 75 20 132/61 94 04/30/22 02:00 95 04/30/22 03:05 36.4 C L 79 18 144/74 H 93 04/29/22 23:27 36.5 C 80 18 121/67 92 04/29/22 23:06 83 O2 Del Method O2 Del Method O2 Flow Rate O2 Flow Rate 04/30/22 06:20 Nasal Cannula 2 04/30/22 02:00 Nasal Cannula 3 04/30/22 03:05 Nasal Cannula 2 04/29/22 23:27 04/29/22 23:06 Diagnostic Findings Spec: [id number] Collected: 04/29/22 Received: 04/29/[address]: Humza Zurita MD Copy To: Zach Dupont MD Source: Finger,Left Index OV Order: Ordered: Aer/Rachel Cult/Sm Procedure Result Verified Site Gram Stain Final 04/29/22 Gram Stain Result No WBCs Seen, No Organisms Seen Aero/Rachel Cult PENDING :
[2022-04-30] MEDS: INSULIN ASPART PER UNIT SC SCH ×4 (09:41→20:37)
[2022-04-30] MEDS ORDERED: LANTUS PER UNIT CHARGE SQ ONE (12:00)
[2022-04-30] MEDS: RIVAROXABAN 15 MG TAB PO SCH (17:29)
--- NOTE | 2022-04-30 17:38 | Hospitalist Progress Note ---
Date of Service April 30, 2022 Assessment & Plan (1) Infection of left hand: Plan: Patient is an 81 y/o M w/ PMHx of DM2 on insulin with severe peripheral neuropathy, HFrEF, multivessel CAD s/p CABG, CKD3, afib on Xarelto, and lumbar spinal stenosis who presents with ongoing left hand infection from 04/14 since he cut himself with a serrated knife while cutting an onion. He has failed outpatient antibiotics cefdinir x 10 days and doxy x 2 days. With sepsis, POA- leukocytosis to 18.79 On admission and is now improved on 15. With tachycardia now improved -Was given vanc/zosyn in ED and then switched to daptomycin and IV Zosyn after admission -Cultures pending - CT hand with possible osteomyelitis acute versus chronic, edema, cellulitis - consult ortho appreciated-obtain MRI of the hand 04/29 which shows significant edema and tenosynovitis -Now s/p amputation of distal finger and flexor tendon removal on 04/29 -Postoperative care as per orthopedic surgery -CRP and ESR significantly elevated-follow along with CBC and CMP -Will likely need prolonged course of antibiotics upon discharge and close follow-up with orthopedics await final determination by ortho, prior to discharge. Also monitor kidney function. (2) Sepsis: Plan: Sepsis, POA--> 2/2 hand infection, OM, septic tenosynovitis flexor tendons of hand --> continue abx broad spectrum with Zosyn and Dapto, follow cxs - Ortho consulted and now s/p amputation of distal index finger and tendon removal,debridement (3) Hypoxia: Plan: Acute respiratory failure with hypoxia-2/2 HFrEF-diuresing, weaning off O2 (4) Metabolic encephalopathy: Plan: Metabolic encephalopathy-2/2 sepsis, hypoglycemia--> now resolved CT head negative (5) Chronic HFrEF (heart failure with reduced ejection fraction): Plan: acute on chronic HFrEF, presented with pulm edema, significant hypoxia diuresed with IV lasix several doses initially, now improved, weaned down to 2LNC ECHO 2020 with LVEF 35-40%, mod-severe LVH, LAD territory WMAs -dc IV lasix and revert to home po Bumex 1mg bid -continue aldactone, Toprol XL -hold lisinopril -Daily weights, strict I's and O's (6) Hypoglycemia: Plan: - bsg 50 at ems arrival. Had several lows after admission pharmacy glycemic consult (restart insulin cautiously). 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, with long- term current use of insulin: Plan: - pharmacy glycemic consult as above Hemoglobin A1c 8.0% in 03/2022 (11) CAD, multiple vessel: Plan: s/p CABG continue ASA, statin, beta elías holding ACEi (12) Chronic kidney disease, stage III (moderate): Plan: Creatinine is improved since admission than 1.7 -Avoid nephrotoxins -renally dose meds when appropriate -follow BMP (13) Diabetic peripheral neuropathy: Plan: Severe in hands and feet, has no sensation Continue duloxetine, gabapentin Has difficulty with falls secondary to neuropathy (14) PAD (peripheral artery disease): Plan: Continue aspirin, Xarelto, statin (15) Paroxysmal ventricular tachycardia: Plan: Status post ICD placement (16) Presence of single chamber implantable cardioverter-defibrillator (ICD): Plan: Noted (17) Sleep apnea: Plan: does not use CPAP Plan DVT prophylaxis-Xarelto Disposition-continued stay on telemetry for treatment of infection and recovery from hand surgery. PT/OT recommending rehab and referrals have been placed. Patient is not keen on the idea of going to rehab, but encouragement given. His family is adamant that he go to rehab as he is not safe at home with multiple falls and with ongoing infection and complex care Discussed his care with his granddaughter, Tanika Robertson cell phone , on the phone who is an ICU nurse at this facility Admission and Anticipated Discharge Date Admission Date: April 28, 2022 Subjective 81 yo male reports no new symptoms Review of Systems Review of Systems: All systems reviewed & are unremarkable except as noted in HPI & below Physical Exam Physical Exam: Constitutional: WD/WN, vitals as above Eyes: + anicteric sclerae Neck: trachea midline, no thyromegaly Respiratory: normal respiratory effort, lungs clear to auscultation Cardiovascular: Rate/Rhythm: regular rate and + irregularly irregular Heart Sounds: no murmur Extremities: no edema Chest (Breasts): Chest: normal inspection of chest Gastrointestinal (Abdomen): normal bowel sounds, soft, nontender, no hepatosplenomegaly Musculoskeletal: Extremities: + extremities abnormal to inspection (Left hand wrapped in dressing and gauze not removed), no cyanosis and no clubbing Skin: no rashes, warm and dry Neurologic: moves all extremities and awake; no focal motor deficits Psychiatric: Orientation: alert, oriented to person, oriented to place and cooperative Lymphatic: no lymphedema Results & Data Results & Data ([facility]) Vital Signs (Past 12 Hours) Vital Signs Temp Pulse Pulse Resp BP BP Pulse Ox 04/30/22 15:40 68 04/30/22 15:30 36.4 C L 65 19 138/65 92 04/30/22 11:26 36.4 C L 66 17 126/60 95 04/30/22 08:00 70 04/30/22 10:08 04/30/22 06:20 36.7 C 75 20 132/61 94 O2 Del Method O2 Flow Rate 04/30/22 15:40 04/30/22 15:30 04/30/22 11:26 Room Air 04/30/22 08:00 04/30/22 10:08 Nasal Cannula 2 04/30/22 06:20 Nasal Cannula 2 PG Care Time/CCT Total # of Minutes Spent Total Time Spent with Patient: Total time spent is greater than 50% in coordination of care (as documented) at patient's floor/unit and/or counseling patient: Coding Level of Care Code 28083 Subseq Hosp Care Lvl 2 Diagnoses Infection of left hand L08.9 Sepsis A41.9 Hypoxia R09.02 Metabolic encephalopathy G93.41 Chronic HFrEF (heart failure with reduced ejection fraction) I50.22 Hypoglycemia E16.2 Atrial fibrillation I48.91 Atrial fibrillation type: unspecified Demand ischemia of myocardium I24.8 Hypertension I10 Hypertension type: essential hypertension 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, with long-term current use of insulin E11.29; E11.65; Z79.4 CAD, multiple vessel I25.10 Chronic kidney disease, stage III (moderate) N18.3 Diabetic peripheral neuropathy E11.42 PAD (peripheral artery disease) I73.9 Paroxysmal ventricular tachycardia I47.2 Presence of single chamber implantable cardioverter-defibrillator (ICD) Z95.810 Sleep apnea G47.30 Time Spent (min) 25 (1) Atrial fibrillation Atrial fibrillation type: unspecified Qualified Code(s): I48.91 - Unspecified atrial fibrillation (2) Hypertension Hypertension type: essential hypertension Qualified Code(s): I10 - Essential (primary) hypertension
[2022-04-30] MEDS: ATORVASTATIN 40 MG TAB PO SCH (20:36)
[2022-04-30] MEDS: MONTELUKAST SODIUM 10 MG TABLET PO SCH (20:37)
[2022-04-30] MEDS: DAPTOmycin 550 MG in SYRINGE 0 ML IV SCH (22:17)
[2022-05-01] MEDS: PIPERACILLIN/TAZOBACTAM 4.5 GM in DEXTROSE 5% 100 ML IV SCH ×3 (04:21→21:05)
--- NOTE | 2022-05-01 08:18 | Orthopedic Progress Note ---
Date of Service May 01, 2022 Assessment & Plan (1) Finger osteomyelitis, left: Plan: POD #2 s/p Left Index Finger Incision and Drainage Flexor Tenosynovitis, amputation left flexor digitorum profundus tendon. Dressing change today. This dressing may remain in place for 48 hours. Continue current IV antibiotics. Since the infected bone was excised, his IV antibiotics may need to be approximately 2 weeks then transition to oral antibiotics. If cultures remain without growth, he may be able to be treated with oral antibiotics. Admission and Anticipated Discharge Date Admission Date: April 28, 2022 Supervising Physician Co-Signing Physician Notes Patient seen and examined. Agree with ANGIE Posada's note as above. His dressing was falling off when I saw him; this was taken down and reapplied. All his incisions are healing well without any active or expressible drainage. No obvious significant persistent infection. Subjective Doing well today. No left hand complaints today. Physical Exam Constitutional: WD/WN, vitals as above no acute distress Musculoskeletal: Extremities: + hand abnormality Left (Well approximated incisions at the volar hand. Well approximated index finger partial amp site. No erythema.) Results & Data ([facility]) Vital Signs (Past 12 Hours) Vital Signs Temp Pulse Pulse Resp BP BP Pulse Ox 05/01/22 07:41 36.8 C 65 18 149/68 H 94 05/01/22 03:26 36.8 C 71 18 112/83 93 05/01/22 02:00 04/30/22 23:35 68 04/30/22 23:22 36.7 C 64 17 116/76 94 Pulse Ox O2 Del Method O2 Del Method O2 Flow Rate O2 Flow Rate 05/01/22 07:41 Nasal Cannula 2 05/01/22 03:26 Nasal Cannula 05/01/22 02:00 93 Nasal Cannula 2 04/30/22 23:35 04/30/22 23:22 Nasal Cannula Laboratory Results No growth on cultures at this point.
[2022-05-01 08:42] LABS: Basophils # (auto) 0.06 K/uL (0-0.2); Basophils % (auto) 0.5 %; Eosinophils # (auto) 0.33 K/uL (0-0.50); Eosinophils % (auto) 2.5 %; Hematocrit (blood only) 36.8 % (40.1-51.0); Hemoglobin 12.3 g/dl (14.0-18.0); Immature Granulocytes # (auto) 0.05 K/uL (0.00-0.02); Immature Granulocytes % (auto) 0.4 %; Lymphocytes # (auto) 1.46 K/uL (1.2-3.4); Mean Corpuscular Hgb Conc 33.4 g/dL (32.0-36.0); Mean Corpuscular Volume 92.7 fL (80.0-100.0); Mean Platelet Volume 10.1 fL (9.4-12.4); Monocytes # (auto) 1.18 K/uL (0.24-0.82); Monocytes % (auto) 8.9 %; Neutrophils # (auto) 10.17 K/uL (1.4-6.5); Neutrophils % (auto) 76.7 %; Platelet Count 382 K/uL (130-400); RDW Coefficient of Variation 14.6 % (11.5-14.5); RDW Standard Deviation 49.6 fL (36.4-46.3); Red Blood Count 3.97 M/uL (4.63-6.08); White Blood Count 13.25 K/ul (4.8-10.8)
[2022-05-01] MEDS: INSULIN ASPART PER UNIT SC SCH ×4 (08:45→21:15)
[2022-05-01] MEDS ORDERED: LANTUS PER UNIT CHARGE SQ ONE (09:00)
[2022-05-01] MEDS: ASPIRIN 81 MG ECTAB PO SCH (09:01)
[2022-05-01] MEDS: BUMETANIDE 1 MG TAB PO SCH ×2 (09:01→17:40)
[2022-05-01] MEDS: DULoxetine HCL 60 MG CAP PO SCH (09:02)
[2022-05-01] MEDS: GABAPENTIN 300 MG CAP PO SCH ×2 (09:02→23:24)
[2022-05-01] MEDS: METOPROLOL SUCC 50MG EXT REL TAB PO SCH (09:02)
[2022-05-01] MEDS: DOCUSATE SODIUM 100 MG CAP PO SCH ×2 (09:02→21:07)
[2022-05-01] MEDS: PANTOprazole 40 MG TAB PO SCH (09:03)
[2022-05-01] MEDS: SPIRONOLACTONE 25 MG TAB PO SCH ×2 (09:03→21:06)
[2022-05-01 09:08] LABS: Albumin Level 3.3 gm/dl (3.4-5.0); BUN Creatinine Ratio 17.7 (10-20); Bilirubin Direct 0.2 mg/dl (0-0.2); Bilirubin,Total 0.9 mg/dl (0.2-1.0); C Reactive Protein 7.15 mg/dl (0-0.5); Calcium 9.6 mg/dl (8.5-10.1); Creatinine Clr Calc Pharmacy 43.6 ml/min; Est GFR (African American) 44.5 ml/min; Est GFR (Non-African American) 38.4 ml/min; Potassium 4.2 mmol/L (3.5-5.1); Total Protein 7.5 gm/dl (6.0-8.3)
--- NOTE | 2022-05-01 10:28 | XRay Report ---
TWO VIEW CHEST CLINICAL HISTORY: Hypoxia FINDINGS: AP and lateral chest radiographs are compared to study dated 04/27/2022. The AP views are d egraded by apical hepatic positioning. The patient is status post midline sternotomy. A single-lead c ardiac AICD is unchanged in position. A coronary artery stent is in place. The heart is enlarged noti ng atherosclerotic calcification of the thoracic aorta. There is pulmonary vascular congestion. Scarr ing/atelectasis is noted at the lung bases. A calcified granuloma is seen at the left lung base. Ther e is no pneumothorax. The skeletal structures are osteopenic. The bony thorax appears intact. IMPRESSION: 1. Cardiomegaly and AICD with evidence of congestive failure. 2. No airspace consolidation or large pleural effusion is identified. ACT 112: Negative or not required by law. Electronically signed by: Hiram Leal M.D. 05/01/2022 10:26 AM
[2022-05-01] MEDS ORDERED: INSULIN HUMAN REGULAR PER UNIT 10 UNITS in SYRINGE 9.9 ML IV ONE (12:00)
--- NOTE | 2022-05-01 15:28 | Pharmacy Report ---
Pharmacy Glycemic Short Note 2 - Date of Service May 01, 2022 - Glycemic Short BSG Results (Last 24 hours): 04/30/22 04/30/22 05/01/22 16:26 20:02 07:31 Glucose POC Glucose 209 H 240 H 212 H 05/01/22 05/01/22 05/01/22 08:20 11:34 11:34 Glucose 240 H POC Glucose 302 H* 296 H 05/01/22 13:33 Glucose POC Glucose 169 H OUTPATIENT ANTIDIABETIC REGIMEN: * Lantus 80 units SQ BID * Novolog 65 units SQ QID, plus sliding scale * Jardiance 25mg PO daily * HbA1c: 8.0% (03/11/22) ASSESSMENT: 05/01 * BSGs trended up throughout the day yesterday with elevated fasting BSG this m orning * Likely related to basal deficiency given significant discrepancy between outpatient/inpatient insulin dosing thus far * Will increase basal and tighten Novolog parameters today 04/29 * Patient's BSG 67 mg/dL this morning after receiving 15 units of lantus last PM, patient still NPO, will reduce lantus scale * Continue current novolog parameters 04/28 * Mr Goodrich is an 81yo diabetic male, admitted with hand infection/sepsis. * Pharmacy glycemic consult service has followed pt in the past. He required significantly less insulin as an inpatient than his home regimen. Will anticipate a similar response. * Pt was hypoglycemic prior to arrival (BSG 50mcg/mL at EMS arrival), and he required multiple doses of dextrose. * likely in the setting of decreased PO intake * BSGs have recovered this morning, but will wait to re-initiate basal insulin, and will do so conservatively. * Pt is currently receiving IV daptomycin and Zosyn. * Pt remains NPO for now. PLAN FOR INPATIENT GLYCEMIC CONTROL: * Hold outpatient oral diabetes medications * Basal insulin * Lantus 30 units SC x 1 this morning * Lantus 0-15 units SC HS * Reassess in AM * Bolus insulin * NovoLog per scale ACHS or Q6hrs while NPO * Goal Range: Low 110 mg/dL - High 140 mg/dL * Correction Factor: 20 mg/dL/unit * Nutritional / Prandial insulin per carb ratio of 1 unit per 5 grams CHO consumed
[2022-05-01] MEDS: RIVAROXABAN 15 MG TAB PO SCH (17:40)
--- NOTE | 2022-05-01 20:53 | Hospitalist Progress Note ---
Date of Service May 01, 2022 Assessment & Plan (1) Infection of left hand: Plan: Patient is an 81 y/o M w/ PMHx of DM2 on insulin with severe peripheral neuropathy, HFrEF, multivessel CAD s/p CABG, CKD3, afib on Xarelto, and lumbar spinal stenosis who presents with ongoing left hand infection from 04/14 since he cut himself with a serrated knife while cutting an onion. He has failed outpatient antibiotics cefdinir x 10 days and doxy x 2 days. With sepsis, POA- leukocytosis to 18.79 On admission and is now improved on 15. With tachycardia now improved -Was given vanc/zosyn in ED and then switched to daptomycin and IV Zosyn after admission -Cultures pending - CT hand with possible osteomyelitis acute versus chronic, edema, cellulitis - consult ortho appreciated-obtain MRI of the hand 04/29 which shows significant edema and tenosynovitis -Now s/p amputation of distal finger and flexor tendon removal on 04/29 -Postoperative care as per orthopedic surgery -CRP and ESR significantly elevated-follow along with CBC and CMP -Will likely need prolonged course of antibiotics upon discharge and close follow-up with orthopedics await final determination by ortho, prior to discharge. Also monitor kidney function. -awaiting cultures. (2) Sepsis: Plan: Sepsis, POA--> 2/2 hand infection, OM, septic tenosynovitis flexor tendons of hand --> continue abx broad spectrum with Zosyn and Dapto, follow cxs - Ortho consulted and now s/p amputation of distal index finger and tendon removal,debridement (3) Hypoxia: Plan: Acute respiratory failure with hypoxia-2/2 HFrEF-diuresing, weaning off O2 has remained negative balance on (4) Metabolic encephalopathy: Plan: Metabolic encephalopathy-2/2 sepsis, hypoglycemia--> now resolved CT head negative (5) Chronic HFrEF (heart failure with reduced ejection fraction): Plan: acute on chronic HFrEF, presented with pulm edema, significant hypoxia diuresed with IV lasix several doses initially, now improved, weaned down to 2LNC ECHO 2020 with LVEF 35-40%, mod-severe LVH, LAD territory WMAs -dc IV lasix and revert to home po Bumex 1mg bid -continue aldactone, Toprol XL -hold lisinopril -Daily weights, strict I's and O's (6) Hypoglycemia: Plan: - bsg 50 at ems arrival. Had several lows after admission pharmacy glycemic consult (restart insulin cautiously). home regimen has large amount of lantus (70-80u BID); likely contributory in setting of decreased PO intake Now improved (7) Atrial fibrillation: Plan: permanent, rate controlled holding Xarelto for surgery, now restart tomorrow continue metoprolol continue tele monitoring (8) Demand ischemia of myocardium: Plan: mildly elevated trop, no CP, no ECG changes, not [place] (9) Hypertension: Plan: BPs controlled continue metoprolol,aldactone holding ACEi while diuresing restart home po Bumex dc IV lasix (10) 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, with long- term current use of insulin: Plan: - pharmacy glycemic consult as above Hemoglobin A1c 8.0% in 03/2022 (11) CAD, multiple vessel: Plan: s/p CABG continue ASA, statin, beta elías holding ACEi (12) Chronic kidney disease, stage III (moderate): Plan: Creatinine is improved since admission than 1.7 -Avoid nephrotoxins -renally dose meds when appropriate -follow BMP (13) Diabetic peripheral neuropathy: Plan: Severe in hands and feet, has no sensation Continue duloxetine, gabapentin Has difficulty with falls secondary to neuropathy (14) PAD (peripheral artery disease): Plan: Continue aspirin, Xarelto, statin (15) Paroxysmal ventricular tachycardia: Plan: Status post ICD placement (16) Presence of single chamber implantable cardioverter-defibrillator (ICD): Plan: Noted (17) Sleep apnea: Plan: does not use CPAP Plan DVT prophylaxis-Xarelto Disposition-continued stay on telemetry for treatment of infection and recovery from hand surgery. PT/OT recommending rehab and referrals have been placed. Patient is not keen on the idea of going to rehab, but encouragement given. His family is adamant that he go to rehab as he is not safe at home with multiple falls and with ongoing infection and complex care Discussed his care with his granddaughter, Tanika Robertson cell phone , on the phone who is an ICU nurse at this facility Admission and Anticipated Discharge Date Admission Date: April 28, 2022 Subjective 81 yo male reports no new symptoms. Review of Systems Review of Systems: All systems reviewed & are unremarkable except as noted in HPI & below Physical Exam Physical Exam: Constitutional: WD/WN, vitals as above Eyes: + anicteric sclerae Neck: trachea midline, no thyromegaly Respiratory: normal respiratory effort, lungs clear to auscultation Cardiovascular: Rate/Rhythm: regular rate and + irregularly irregular Heart Sounds: no murmur Extremities: no edema Chest (Breasts): Chest: normal inspection of chest Gastrointestinal (Abdomen): normal bowel sounds, soft, nontender, no hepatosplenomegaly Musculoskeletal: Extremities: + extremities abnormal to inspection (Left hand wrapped in dressing and gauze not removed), no cyanosis and no clubbing Skin: no rashes, warm and dry Neurologic: moves all extremities and awake; no focal motor deficits Psychiatric: Orientation: alert, oriented to person, oriented to place and cooperative Lymphatic: no lymphedema Results & Data Results & Data ([facility]) Vital Signs (Past 12 Hours) Vital Signs Temp Pulse Pulse Resp BP BP Pulse Ox 05/01/22 20:00 05/01/22 19:21 37.0 C 77 18 153/88 H 94 05/01/22 18:16 72 05/01/22 12:01 36.3 C L 85 16 128/71 94 05/01/22 10:08 Pulse Ox O2 Del Method O2 Del Method O2 Flow Rate O2 Flow Rate 05/01/22 20:00 94 Nasal Cannula 2 05/01/22 19:21 Nasal Cannula 05/01/22 18:16 05/01/22 12:01 Nasal Cannula 2 05/01/22 10:08 Nasal Cannula 2 PG Care Time/CCT Total # of Minutes Spent Total Time Spent with Patient: Total time spent is greater than 50% in coordination of care (as documented) at patient's floor/unit and/or counseling patient: Coding Level of Care Code 26541 Subseq Hosp Care Lvl 2 Diagnoses Infection of left hand L08.9 Sepsis A41.9 Hypoxia R09.02 Metabolic encephalopathy G93.41 Chronic HFrEF (heart failure with reduced ejection fraction) I50.22 Hypoglycemia E16.2 Atrial fibrillation I48.91 Atrial fibrillation type: unspecified Demand ischemia of myocardium I24.8 Hypertension I10 Hypertension type: essential hypertension 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, with long-term current use of insulin E11.29; E11.65; Z79.4 CAD, multiple vessel I25.10 Chronic kidney disease, stage III (moderate) N18.3 Diabetic peripheral neuropathy E11.42 PAD (peripheral artery disease) I73.9 Paroxysmal ventricular tachycardia I47.2 Presence of single chamber implantable cardioverter-defibrillator (ICD) Z95.810 Sleep apnea G47.30 Time Spent (min) 25 (1) Atrial fibrillation Atrial fibrillation type: unspecified Qualified Code(s): I48.91 - Unspecified atrial fibrillation (2) Hypertension Hypertension type: essential hypertension Qualified Code(s): I10 - Essential (primary) hypertension
[2022-05-01] MEDS ORDERED: LANTUS PER UNIT CHARGE SQ SCH (21:00)
[2022-05-01] MEDS: ATORVASTATIN 40 MG TAB PO SCH (21:06)
[2022-05-01] MEDS: MONTELUKAST SODIUM 10 MG TABLET PO SCH (21:06)
[2022-05-01] MEDS: SENNA 8.6 MG TAB PO SCH (21:07)
[2022-05-01] MEDS: DAPTOmycin 550 MG in SYRINGE 0 ML IV SCH (23:24)
[2022-05-02] MEDS: PIPERACILLIN/TAZOBACTAM 4.5 GM in DEXTROSE 5% 100 ML IV SCH ×2 (03:28→13:30)
[2022-05-02 05:58] LABS: A calco-baum cmplx NotReported Not Detected (NotDetected); Bact fragilis Not Reported Not Detected (NotDetected); C auris Not Reported Not Detected (NotDetected); Calbicans Not Reported Not Detected (NotDetected); Candida glabrata Not Reported Not Detected (NotDetected); Candida krusei Not Reported Not Detected (NotDetected); Cneoformans/gatti Not Reported Not Detected (NotDetected); Cparapsilosis Not Reported Not Detected (NotDetected); Ctropicalis Not Reported Not Detected (NotDetected); E cloacae compx Not Reported Not Detected (NotDetected); Efaecalis Not Reported Not Detected (NotDetected); Efaecium Not Reported Not Detected (NotDetected); Enterobacterales Not Reported Not Detected (NotDetected); Escherichia coli Not Reported Not Detected (NotDetected); H influenzae Not Reported Not Detected (NotDetected); K aerogenes Not Reported Not Detected (NotDetected); Koxytoca Not Reported Not Detected (NotDetected); Kpneumoniae grp Not Reported Not Detected (NotDetected); Lmonocyt Not Reported Not Detected (NotDetected); N meningitidis Not Reported Not Detected (NotDetected); P aeruginosa Not Reported Not Detected (NotDetected); Proteus spp Not Reported Not Detected (NotDetected); Salmonella spp Not Reported Not Detected (NotDetected); Smarcescens Not Reported Not Detected (NotDetected); Staph lugdunensis Not Reported Not Detected (NotDetected); Staph spp. Not Reported Not Detected (NotDetected); Staphaureus Not Reported Not Detected (NotDetected); Staphepi Not Reported Not Detected (NotDetected); Stenmaltophilia Not Reported Not Detected (NotDetected); Strep agal(GrpB) Not Reported Not Detected (NotDetected); Strep pneum Not Reported Not Detected (NotDetected); Strep pyog (GrpA) Not Reported Not Detected (NotDetected); Strep spp Not Reported Not Detected (NotDetected)
--- NOTE | 2022-05-02 06:16 | Communication Note ---
Date of Service: May 02, 2022 notified of 04/27 blood cultures 1 tube pos for gram pos bacilli. repeating blood cultures. already on broad spectrum dapto+zosyn. day team to assess HPI if risk factors such as farming (consider bacillus anthracis, corynebacterium, tetanus).
--- NOTE | 2022-05-02 07:58 | Operative Report (OR) ---
PREOPERATIVE DIAGNOSES: 1. Left index finger osteomyelitis. 2. Left index finger flexor digitorum profundus rupture. 3. Left index finger septic flexor tenosynovitis. POSTOPERATIVE DIAGNOSES: 1. Left index finger osteomyelitis. 2. Left index finger flexor digitorum profundus rupture. 3. Left index finger septic flexor tenosynovitis. PROCEDURE: 1. Left index finger amputation at distal interphalangeal joint. 2. Left index finger excision of flexor digitorum profundus. 3. Left index finger irrigation and debridement of septic flexor tenosynovitis. SURGEON: Humza Zurita MD. TOOL MARKER: Brando Posada PA-C, who was necessary for prepping, draping, retraction, exposure, a nd closure. ANESTHESIA: General. INDICATIONS: This 81-year-old gentleman with progressive pain at the tip of the finger. He presents with concern for osteomyelitis of the distal phalanx, was also concerned for associated septic flexo r tenosynovitis. I reviewed his MRI, which suggests FDP rupture. I saw him in the preoperative hold ing area. We discussed risks, benefits, reasonable outcomes and expectations for the above-mentioned work. The risks and benefits have been discussed including, but not limited to, risk of infection, nerve in jury, stiffness, loss of motion, failure to improve, etc. Reasonable outcomes and options of treatmen t were discussed. An explanation of appropriate alternatives to the procedure that may be advantageou s were discussed and their risks and benefits, as well as the risks and benefits of not proceeding wi th treatment. I offered to answer any additional inquiries concerning the treatment involved. All the patients questions were answered. The patient is agreeable, understanding of the treatment plan and alternatives, and wishes to proceed with the treatment plan. DESCRIPTION OF PROCEDURE: I made an elliptical incision at the distal phalanx tip. Dissection was c arried through the skin, subcutaneous tissue. He had a large eschar in sinus tract, which I excised. Infection was identified, which was carried down to the bone. I performed a saucerization of osteom yelitis and removed any devitalized bone. The distal phalanx was completely nonfunctional, so I sadi ian the distal phalanx completely. The middle phalanx appeared to be healthy. I took cultures from the flexor tendon sheath more proximally after that was opened. I irrigated the distal tip with 1 liter of normal saline. I made a longitudinal incision over the A1 ryan. Dissection was carried down through the skin and subcutaneous tissue. I sharply incised the A1 ryan, moderate amount of fluid was encountered in th e tendon sheath. There was no evidence of fluid in the soft tissues. Most of the fluid was in the s qasim distally. I then performed irrigation and debridement of septic flexor tenosynovitis by irriga ting 1 liter of normal saline from proximal to distal through the flexor tendon sheath at the tip of the finger. This resulted in clear fluid return. Both incisions were irrigated copiously. Patient also had an MRI, which showed inflammatory fluid signal in the fifth extensor tendon just pro ximal to the A1 ryan. The patient did have some induration there. I made a longitudinal incision over this in the region of the A1 ryan. Dissection was carried through the skin and subcutaneous t issue. I opened the A1 ryan, tendons were identified. There was no evidence of infection in the t endons. The tendons were basically nonfunctional and scarred in due to previous amputation of the fi nger and many years of disuse of the finger. There is no active evidence of infection in the area. All the incisions were irrigated and A1 ryan incisions were closed with running 4-0 nylon. The inc ision on the tip of the finger was closed with a 4-0 nylon in a simple fashion. The patient was plac ed in soft dressing and sent to the PACU in a stable condition. POSTOPERATIVE PLAN: Will be range of motion as tolerated. We will continue antibiotics as per torrey adler. No further surgical plans at this point in time. May start his Xarelto tomorrow. Job ID: [id number]
[2022-05-02 08:01] LABS: Hematocrit (blood only) 38.3 % (40.1-51.0); Hemoglobin 12.9 g/dl (14.0-18.0); Mean Corpuscular Hemoglobin 30.9 pg (25.0-34.0); Mean Corpuscular Hgb Conc 33.7 g/dL (32.0-36.0); Mean Corpuscular Volume 91.8 fL (80.0-100.0); Platelet Count 427 K/uL (130-400); RDW Coefficient of Variation 14.4 % (11.5-14.5); RDW Standard Deviation 48.5 fL (36.4-46.3); Red Blood Count 4.17 M/uL (4.63-6.08); White Blood Count 11.28 K/ul (4.8-10.8)
[2022-05-02 08:25] LABS: BUN Creatinine Ratio 16.2 (10-20); Creatinine Clr Calc Pharmacy 42.3 ml/min; Est GFR (African American) 43.5 ml/min; Est GFR (Non-African American) 37.5 ml/min; Potassium 3.8 mmol/L (3.5-5.1)
[2022-05-02] MEDS: ASPIRIN 81 MG ECTAB PO SCH (08:43)
[2022-05-02] MEDS: PANTOprazole 40 MG TAB PO SCH (08:44)
[2022-05-02] MEDS: BUMETANIDE 1 MG TAB PO SCH (08:44)
[2022-05-02] MEDS: DOCUSATE SODIUM 100 MG CAP PO SCH (08:44)
[2022-05-02] MEDS: DULoxetine HCL 60 MG CAP PO SCH (08:45)
[2022-05-02] MEDS: SPIRONOLACTONE 25 MG TAB PO SCH (08:45)
[2022-05-02] MEDS: GABAPENTIN 300 MG CAP PO SCH (08:45)
[2022-05-02] MEDS: METOPROLOL SUCC 50MG EXT REL TAB PO SCH (08:45)
[2022-05-02] MEDS: INSULIN ASPART PER UNIT SC SCH ×2 (08:55→14:13)
--- NOTE | 2022-05-02 08:58 | Orthopedic Progress Note ---
Date of Service May 02, 2022 Assessment & Plan (1) Finger osteomyelitis, left: Plan: POD #3 s/p Left Index Finger Incision and Drainage Flexor Tenosynovitis, amputation left flexor digitorum profundus tendon. Dressing may remain in place as long as is not falling off. The dressing may be changed tomorrow by nursing. The incisions at the palm may be dressed with Band-Aids. Dry gauze at the index finger amputation site. Cultures have not had any growth at this point. Continue IV antibiotics while in the hospital. May be able to transition to oral antibiotics upon discharge. Orthopedics to sign off at this time. The patient may follow-up in our office in approximately 10 to 14 days from surgery. Admission and Anticipated Discharge Date Admission Date: April 28, 2022 Physical Exam Constitutional: WD/WN, vitals as above no acute distress Musculoskeletal: Extremities: + hand abnormality Left (Well approximated and healing incisions. No drainage or erythema.) Results & Data ([facility]) Vital Signs (Past 12 Hours) Vital Signs Temp Pulse Pulse Resp BP Pulse Ox Pulse Ox 05/02/22 03:04 36.5 C 73 18 124/74 93 05/02/22 02:00 95 05/01/22 23:57 74 05/01/22 23:14 36.8 C 76 18 113/54 L 95 05/01/22 21:31 O2 Del Method O2 Del Method O2 Flow Rate O2 Flow Rate 05/02/22 03:04 Nasal Cannula 05/02/22 02:00 Nasal Cannula 2 05/01/22 23:57 05/01/22 23:14 Nasal Cannula 05/01/22 21:31 Nasal Cannula 2 :
[2022-05-02] MEDS ORDERED: LANTUS PER UNIT CHARGE SQ SCH ×2 (09:00)
[2022-05-02] MEDS ORDERED: FENOFIBRATE NANOCRYSTALLIZED 48 MG TABLET PO SCH (09:00)
--- NOTE | 2022-05-02 10:48 | Pharmacy Report ---
Pharmacy Glycemic Short Note 2 - Date of Service May 02, 2022 - Glycemic Short BSG Results (Last 24 hours): 05/01/22 05/01/22 05/01/22 11:34 11:34 13:33 Glucose POC Glucose 302 H* 296 H 169 H 05/01/22 05/01/22 05/02/22 16:33 20:03 07:02 Glucose 148 H POC Glucose 122 H 152 H 05/02/22 07:06 Glucose POC Glucose 136 H OUTPATIENT ANTIDIABETIC REGIMEN: * Lantus 80 units SQ BID * Novolog 65 units SQ QID, plus sliding scale * Jardiance 25mg PO daily * HbA1c: 8.0% (03/11/22) ASSESSMENT: 05/02 * 77 units SQ insulin given over last 24 hrs while tolerating diet * BSGs did initially trend up during the day yesterday, however returned to goal in the afternoon * Fasting BSG 136 with 40 units basal on board - will continue the same for now. Pt has required 35-70 units of basal insulin per day on prior admissions for desirable results. * Post-prandial BSGs responded favorably to Novolog changes made yesterday. Of note, pre-lunch hyperglycemia observed on prior admissions, raising the possibility that larger prandial doses may be needed with breakfast 05/01 * BSGs trended up throughout the day yesterday with elevated fasting BSG this morning * Likely related to basal deficiency given significant discrepancy between outpatient/inpatient insulin dosing thus far * Will increase basal and tighten Novolog parameters today 04/29 * Patient's BSG 67 mg/dL this morning after receiving 15 units of lantus last PM, patient still NPO, will reduce lantus scale * Continue current novolog parameters 04/28 * Mr Goodrich is an 81yo diabetic male, admitted with hand infection/sepsis. * Pharmacy glycemic consult service has followed pt in the past. He required significantly less insulin as an inpatient than his home regimen. Will anticipate a similar response. * Pt was hypoglycemic prior to arrival (BSG 50mcg/mL at EMS arrival), and he required multiple doses of dextrose. * likely in the setting of decreased PO intake * BSGs have recovered this morning, but will wait to re-initiate basal insulin, and will do so conservatively. * Pt is currently receiving IV daptomycin and Zosyn. * Pt remains NPO for now. PLAN FOR INPATIENT GLYCEMIC CONTROL: * Hold outpatient oral diabetes medications * Basal insulin * Lantus 20 units BID * Bolus insulin * NovoLog per scale ACHS or Q6hrs while NPO * Goal Range: Low 110 mg/dL - High 140 mg/dL * Correction Factor: 20 mg/dL/unit * Nutritional / Prandial insulin per carb ratio of 1 unit per 5 grams CHO consumed
--- NOTE | 2022-05-02 14:21 | Infectious Disease Consult ---
Date of Consultation May 02, 2022 Assessment & Plan (1) Finger osteomyelitis, left: (2) Infection of left hand: (3) Cellulitis of hand, left: Plan 81 yo man with pmh of poorly controlled DM2 on insulin, peripheral neuropathy, HFpEF, multivessel CAD, CKD3, afib on Xarelto lumbar spinal stenosis, previous traumatic amputations of left hand digits who presents with left index finger infection ongoing for 1 month. Approximately 1 month ago he sliced his left pointer finger with a tomato slicer. He is a poor historian but reports increased erythema and swelling of the finger over time. He was treated outpatient with a 10 day course of cefdinir with no improvement followed by doxycycline which was started on 04/25. He was noted to be more confused at home with associated falls and was brought to the Ed for further evaluation on 04/27. In the ed he was afebrile. A hand xray showed superficial cellulitis with no obvious loculated collection, no bony erosive changes. CT hand showed diffuse soft tissue edema throughout the left hand most pronounced at the index finger favoring cellulitis, no definite loculated fluid collections suggest an abscess. There is erosive changes at the distal tuft of the left index finger with an associated fracture which could be due to acro osteolysis or an osteomyelitis. It also showed chronic erosive changes seen within the distal murray of the third and fourth fingers.Multiple linear metallic foreign body are seen within the second through fourth fingers. He subsequently underwent a left hand MRI showed partial amputation of the fifth finger with erosive changes of the second, third and fourth distal fingers .It also noted a distal tear with retraction involving the second finger flexor digitorum profundus tendon with diffuse subcutaneous, deep tissue and intramuscular edema. Labs were noted for WBc 18.79. He was started on IV vancomycin and zosyn and then vancomcyin changed to Daptomycin. On 04/29/22, he underwent left index finger amputation at distal interphalangeal joint, excision of flexor digitorum profundus with irrigation and debridement of septic flexor tenosynovitis with orthopedic surgery . The operative report was reviewed. At the distal phalyx tip infection was noted down to bone. The distal phalanx was completely nonfunctional, so it was removed completely and the remaining middle phalanx appeared to be healthy. Cultures were obtained and remain negative. irrigation and debridement of septic flexor tenosynovitis was completed with clear fluid return. There was no evidence of infection in the fifth extensor tendon just proximal to the A1 ryan that showed inflammatory signal on Mri. It was thought that the tendons were nonfunctional and scarred due to previous amputation of the finger and many years of disuse of the finger. There was no evidence of active infection i n the area. Per discussion with surgeon and operative note, all infection removed. No pathology sent. No further surgical plans at this point in time. Intraoperative cultures sterile to date. BC on admission 04/27 now positive for GPR ( 05/02) not identified in 1/4 bottles. Repeat BC ordered today 05/02 by primary team, results pending. ID consulted for outpatient antibiotics. Patient is awake and alert on my exam. He denies fever, chills, sweats, nausea, vomiting, rash. He reports resolution of erythema and swelling of left index finger. ID consulted for outpatient antibiotics. MICRO ABX: vancomycin 04/28- Zosyn 04/28- ongoing Daptomycin 04/28- ongoing Outpatient ABX: cefdinir ~04/15-04/24 doxycycline ~04/25-04-27 Acute left index osteomyelitis of the distal phalanx with associated septic flexor tenosynovitis -112 ESr - sp partial amputation and I + D on 04/29 - No path, Cx - sterile to date - received about 10-12 days of antibiotic( cefnidir, doxycycline) prior to admission which may lead to sterile BC - Vanco---> Daptomycin and Zosyn since 04/28 Gram Positive Bacilli Bacteremia in 1/4 bottles- -obtained 04/27- finalized on 05/02 ( today as +), No sterile BC yet documented - GPR not yet identified History of traumatic amputation of some of the left hand digits - no evidence of active infection per Ortho on OR report Poorly controlled DM with neuropathy ICD in place Recommendations. Per OR report, all infected non viable infected bone has been amputated. Intraoperative cultures are sterile to date . Prior to admission, he received approximately 10 days of antibiotics with cefnidir and then doxycycline which may have sterilized the bone. Additionally, he received broad IV antibiotics for 24 hours prior to Or with IV vancomycin --->Daptomycin and Zosyn which may have contributed to sterilization of the bone. He is noted today to have a slow growing Gram positive dylan in 1/4 bottles from admission blood culture. He is a poorly controlled diabetic Since Intraoperative cultures are sterile to date on the aforementioned antibiotics AND orthopedic feels that all nonviable bone and infected tissue has been removed, he can complete a 2 week course of oral abx with Cipro 500 mg po bid, Augmentin 875/125 mg po bid and doxycycline 100 mg bid ( best approximate oral equivalents of IV abx received inpatient). I would however await clearance of BC prior to discharging on oral antibiotics. If repeat BC positive, he will need further workup. If QtC > 500 , Hold off on starting cipro. Anticipate 14 days treatment from Or date or sterile BC whichever is latest. If repeat BC remains sterile the GPR may represent a contaminant (GPR ID is pending). Follow up ID of GPR and repeat BC results. Recommendations verbalized to primary team Dr Uriostegui via phone. Thank you for allowing me to participate in the care of your patient.ID will continue to follow the patient with you. Rica Venegas MD, MPH [facility] Consultation Information Consultation was provided via telemedicine using two-way real-time interactive telecommunication between the patient and the telemedicine provider. For the duration of the visit, the provider was performing the assessment from a different facility than the patient. This includesuse of bluetooth stethoscope forauscultationperformed by the telepresenter that the telemedicine provider can hear if described in the physical exam. Outboard Motor Inspector contact information: Please call [facility] Center . (Phone Number For Physician Use Only) After establishing a telemedicine visit, patient was: Patient was verified with two unique identifiers and Patient/authorized rep acknowledged consent and understanding History of Present Illness Reason for Consultation: Consult for outpatient antibiotics for hand osteomyelitis Requesting Physician: Arnulfo Uriostegui Attending Physician: Arnulfo Uriostegui History of Present Illness This is an 81 yo man with pmh of poorly controlled DM2 on insulin, peripheral neuropathy, HFpEF, multivessel CAD, CKD3, afib on Xarelto lumbar spinal stenosis, previous traumatic amputations of left hand digits who presents with left index finger infection ongoing for 1 month. Approximately 1 month ago he sliced his left pointer finger with a tomato slicer. He is a poor historian but reports increased erythema and swelling of the finger over time. He was treated outpatient with a 10 day course of cefdinir with no improvement followed by doxycycline which was started on 04/25. He was noted to be more confused at home with associated falls and was brought to the Ed for further evaluation on 04/27. In the ed he was afebrile. A hand xray showed superficial cellulitis with no obvious loculated collection, no bony erosive changes. CT hand showed diffuse soft tissue edema throughout the left hand most pronounced at the index finger favoring cellulitis, no definite loculated fluid collections suggest an abscess. There is erosive changes at the distal tuft of the left index finger with an associated fracture which couldl be due to acro osteolysis or an osteomyelitis. It also showed chronic erosive changes seen within the distal murray of the third and fourth fingers.Multiple linear metallic foreign body are seen within the second through fourth fingers. He subsequently underwent a left hand MRI showed partial amputation of the fifth finger with erosive changes of the second, third and fourth distal fingers .It also noted a distal tear with retraction involving the second finger flexor digitorum profundus tendon with diffuse subcutaneous, deep tissue and intramuscular edema. Labs were noted for WBc 18.79. He was started on IV vancomycin and zosyn and then vancomcyin changed to Daptomycin. On 04/29/22, he underwent left index finger amputation at distal interphalangeal joint, excision of flexor digitorum profundus with irrigation and debridement of septic flexor tenosynovitis with orthopedic surgery . The operative report was reviewed. At the distal phalyx tip infection was noted down to bone. The distal phalanx was completely nonfunctional, so it was removed completely and the remaining middle phalanx appeared to be healthy. Cultures were obtained and remain negative. irrigation and debridement of septic flexor tenosynovitis was completed with clear fluid return. There was no evidence of infection in the fifth extensor tendon just proximal to the A1 pull ey that showed inflammatory signal on Mri. It was thought that the tendons were nonfunctional and scarred due to previous amputation of the finger and many years of disuse of the finger. There was no evidence of active infection in the area. Per discussion with surgeon and operative note, all infection removed. No pathology sent. No further surgical plans at this point in time. Intraoperative cultures sterile to date. BC on admission 04/27 now positive for GPR ( 05/02) not identified in 1/4 bottles. Repeat BC ordered today 05/02 by primary team, results pending. ID consulted for outpatient antibiotics. Patient is awake and alert on my exam. He denies fever, chills, sweats, nausea, vomiting, rash. He reports resolution of erythema and swelling of left index finger. ID consulted for outpatient antibiotics. Allergies Allergies Allergy/AdvReac Type Severity Reaction Status Date / Time No Known Drug Allergies Allergy Unknown NKDA Verified 04/25/22 13:36 Home Medications Medication Instructions Recorded Confirmed Type aspirin 81 mg tablet,delayed 81 mg PO QAM 06/04/18 04/27/22 History release nitroglycerin 0.4 mg sublingual 0.4 mg sublingual Q5M PRN Chest 02/25/19 04/27/22 History tablet (Nitrostat) Pain cholecalciferol (vitamin D3) 50 4,000 unit PO QAM 04/22/20 04/27/22 History mcg (2,000 unit) capsule blood-glucose meter,continuous #1 ea 11/10/20 04/25/22 History (Dexcom G6 Driver Material Handler misc) blood-glucose sensor (Dexcom G6 #3 ea 11/10/20 04/25/22 History Sensor device) blood-glucose transmitter (Dexcom #1 ea 11/10/20 04/25/22 History G6 Transmitter device) gabapentin 300 mg capsule 600 mg PO BID #360 caps 05/21/21 04/27/22 Rx rivaroxaban 15 mg tablet (Xarelto) 15 mg PO QPM #90 tabs 05/26/21 04/27/22 Rx spironolactone 25 mg tablet 25 mg PO BID #180 tabs 06/11/21 04/27/22 Rx duloxetine 60 mg capsule,delayed 60 mg PO QAM #90 caps 08/25/21 04/27/22 Rx release metoprolol succinate 100 mg 100 mg PO QAM #90 tabs 08/25/21 04/27/22 Rx tablet,extended release 24 hr montelukast 10 mg tablet 10 mg PO HS #90 tabs 09/10/21 04/27/22 Rx bumetanide 1 mg tablet 1 mg PO BID #200 tabs 11/23/21 04/27/22 Rx blood sugar diagnostic (FreeStyle 12/01/21 04/25/22 History Lite Strips) fenofibrate 54 mg tablet 54 mg PO HS 01/04/22 04/27/22 History ketoconazole 2 % topical cream 1 applic topical DAILY PRN Rash 01/04/22 04/27/22 History insulin glargine 100 unit/mL 80 unit (0.8 mL) subcut BID high 01/17/22 04/27/22 Rx subcutaneous solution (Lantus blood sugar #150 mL U-100 Insulin) atorvastatin 80 mg tablet 80 mg PO HS #90 tabs 03/19/22 04/27/22 Rx pantoprazole 20 mg tablet,delayed 20 mg PO QAM #90 tabs 03/19/22 04/27/22 Rx release insulin syringe-needle U-100 1 mL #600 ea 04/07/22 04/25/22 Rx 31 gauge x 5/16" (BD Insulin Syringe Ultra-Fine) insulin aspart U-100 100 unit/mL See Rx Instructions .Route 04/19/22 04/27/22 Rx subcutaneous solution (Novolog .COMPLEX #280 mL U-100 Insulin aspart) doxycycline hyclate 100 mg tablet 100 mg PO BID 10 days #20 tabs 04/25/22 04/27/22 Rx empagliflozin 25 mg tablet 25 mg PO DAILY 04/27/22 04/27/22 History (Jardiance) amoxicillin 875 mg-potassium 1 tab PO BID #28 tabs 05/02/22 Rx clavulanate 125 mg tablet docusate sodium 100 mg capsule 100 mg PO BID #0 caps 05/02/22 Rx doxycycline hyclate 100 mg tablet 100 mg PO BID 14 days #28 tabs 05/02/22 Rx lisinopril 5 mg tablet 2.5 mg PO QAM #90 tabs 05/02/22 04/27/22 Rx sennosides 8.6 mg tablet (Senokot) 17.2 mg PO HS #0 tabs 05/02/22 Rx Patient History Medical History (Updated 04/30/22 @ 00:22 by Kelsey Simms MD) Anxiety Atrial fibrillation Reason for Xarelto Follows with [facility] C4 cervical fracture No surgical intervention. Full ROM. Occurred 2-3 years ago- no current issues CAD (coronary artery disease) S/p RCA PCI in 1991, 1998, and 2004- totaling 5 stents to prox and mid RCA S/p 3 vessel CABG 2008 Cardiomyopathy Carotid artery stenosis, asymptomatic No hemodynamically significant stenosis per 2019 CTA of neck to ICAs bilaterally CHF (congestive heart failure) Chronic kidney disease, stage III (moderate) Depression DM type 2 (diabetes mellitus, type 2) IDDM Dysphagia Occasional (per ) Gastroparesis GERD (gastroesophageal reflux disease) Well controlled and stable Hearing deficit HOPI History of traumatic brain injury 2018 (after fall down stairs) > subdural hematoma resolved without surgical intervention, no residual issues Hyperlipidemia Hypertension ICD (implantable cardioverter-defibrillator) in place Medtr[employer]. Implanted ~2017 for sustained VT Insomnia LBBB (left bundle branch block) Chronic dating back to at least 07/2019 EKG per charts PAD (peripheral artery disease) H/o of right SFA/TP trunk/PT angioplasty at [facility] (2011) Peripheral neuropathy Poor historian Sensorineural hearing loss of both ears Situational depression Sleep apnea Refuses device per records Spinal stenosis Subdural hematoma 2018 (after fall down stairs) > subdural hematoma resolved without surgical intervention, no residual issues Venous insufficiency Surgical History History of anesthesia reaction Combative with emergence History of back surgery History of cardiac cath Multiple (hx stents) History of cataract surgery R/L History of cholecystectomy History of colonoscopy History of knee replacement Left Hx of angioplasty Hx of CABG CABG x3 (2008) S/P epidural steroid injection S/P ICD (internal cardiac defibrillator) procedure Family History Daughter Family history of reaction to anesthesia PONV Sister Cancer Father Family history of diabetes mellitus Grandmother (Maternal) Family history of diabetes mellitus Other No significant family history Denies family history of Ovarian cancer Prostate cancer Coronary heart disease Breast cancer Colorectal cancer Social History Smoking Status: Former smoker Tobacco Type: Cigarettes Age Started Using Tobacco: 19; Age Quit Using Tobacco: 49; packs per day: 2; Second Hand Exposure: Yes (SPOUSE SMOKES (OUTSIDE)); Hx Alcohol Use: No Hx Substance Use: No Preferred Language: Hungarian Communication Ability: Effective Visual Impairment: Limited Hearing Ability: Hard of Hearing Lodge Attendant Required: No Beliefs That Will Affect Care: None marital status: Current Living Situation: Spouse current occupational status: retired 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 Pertinent positives as per HPI Physical Exam Constitutional: Awake, alert and oriented times 3. NAD Eyes: EOMI Neck: Supple Respiratory: NO increased work of breathing, Cardiovascular: iregularyly irregular Gastrointestinal (Abdomen): soft , not tender Musculoskeletal: able to flex and extend at left wrist and all digits. Left hand partially dressed. Has prior digits s/p traumatic amputation. Left index with new amputaion . No erythma or edema. He has no ttp ( neuropathy) . Able to extend/flex digits. Neurologic: AA+O *3 Psychiatric: Coopertative. Appropriate Mood. Results & Data ([facility]) Vital Signs (Past 12 Hours) Vital Signs Temp Pulse Resp BP BP Pulse Ox O2 Del Method 05/02/22 11:40 36.6 C 75 17 113/67 94 05/02/22 09:18 36.5 C 74 18 130/76 94 Room Air 05/02/22 03:04 36.5 C 73 18 124/74 93 Nasal Cannula Laboratory Results Laboratory Results - last 48 hr 04/27/22 05/01/22 05/01/22 20:29 07:31 08:20 WBC 13.25 H RBC 3.97 L Hgb 12.3 L Hct 36.8 L MCV 92.7 MCH 31.0 MCHC 33.4 RDW Std Deviation 49.6 H RDW Coeff of Paulo 14.6 H Plt Count 382 MPV 10.1 Immature Gran % (Auto) 0.4 Neut % (Auto) 76.7 Lymph % (Auto) 11.0 [place] % (Auto) 8.9 Eos % (Auto) 2.5 Baso % (Auto) 0.5 Neut # (Auto) 10.17 H Lymph # (Auto) 1.46 [place] # (Auto) 1.18 H Eos # (Auto) 0.33 Baso # (Auto) 0.06 Immature Gran # (Auto) 0.05 H ESR Sodium Potassium Chloride Carbon Dioxide Anion Gap BUN Creatinine Est Cr Clr Drug Dosing Est GFR ( Amer) Est GFR (Non-Af Amer) BUN/Creatinine Ratio Glucose POC Glucose 212 H Calcium Total Bilirubin Direct Bilirubin AST ALT Alkaline Phosphatase C-Reactive Protein B-Natriuretic Peptide Total Protein Albumin Bld Cult ID Panel PCR PCR Panel Negative 05/01/22 05/01/22 05/01/22 08:20 08:20 08:41 WBC RBC Hgb Hct MCV MCH MCHC RDW Std Deviation RDW Coeff of Paulo Plt Count MPV Immature Gran % (Auto) Neut % (Auto) Lymph % (Auto) [place] % (Auto) Eos % (Auto) Baso % (Auto) Neut # (Auto) Lymph # (Auto) [place] # (Auto) Eos # (Auto) Baso # (Auto) Immature Gran # (Auto) ESR 112 H Sodium 133 L Potassium 4.2 Chloride 93 L Carbon Dioxide 32 Anion Gap 8 BUN 29 H Creatinine 1.64 H Est Cr Clr Drug Dosing 43.6 Est GFR ( Amer) 44.5 Est GFR (Non-Af Amer) 38.4 BUN/Creatinine Ratio 17.7 Glucose 240 H POC Glucose Calcium 9.6 Total Bilirubin 0.9 Direct Bilirubin 0.2 AST 13 ALT 8 Alkaline Phosphatase 55 C-Reactive Protein 7.15 H B-Natriuretic Peptide 128 H Total Protein 7.5 Albumin 3.3 L Bld Cult ID Panel PCR 05/01/22 05/01/22 05/01/22 11:34 11:34 13:33 WBC RBC Hgb Hct MCV MCH MCHC RDW Std Deviation RDW Coeff of Paulo Plt Count MPV Immature Gran % (Auto) Neut % (Auto) Lymph % (Auto) [place] % (Auto) Eos % (Auto) Baso % (Auto) Neut # (Auto) Lymph # (Auto) [place] # (Auto) Eos # (Auto) Baso # (Auto) Immature Gran # (Auto) ESR Sodium Potassium Chloride Carbon Dioxide Anion Gap BUN Creatinine Est Cr Clr Drug Dosing Est GFR ( Amer) Est GFR (Non-Af Amer) BUN/Creatinine Ratio Glucose POC Glucose 302 H* 296 H 169 H Calcium Total Bilirubin Direct Bilirubin AST ALT Alkaline Phosphatase C-Reactive Protein B-Natriuretic Peptide Total Protein Albumin Bld Cult ID Panel PCR 05/01/22 05/01/22 05/02/22 16:33 20:03 07:02 WBC 11.28 H RBC 4.17 L Hgb 12.9 L Hct 38.3 L MCV 91.8 MCH 30.9 MCHC 33.7 RDW Std Deviation 48.5 H RDW Coeff of Paulo 14.4 Plt Count 427 H MPV 10.0 Immature Gran % (Auto) Neut % (Auto) Lymph % (Auto) [place] % (Auto) Eos % (Auto) Baso % (Auto) Neut # (Auto) Lymph # (Auto) [place] # (Auto) Eos # (Auto) Baso # (Auto) Immature Gran # (Auto) ESR Sodium Potassium Chloride Carbon Dioxide Anion Gap BUN Creatinine Est Cr Clr Drug Dosing Est GFR ( Amer) Est GFR (Non-Af Amer) BUN/Creatinine Ratio Glucose POC Glucose 122 H 152 H Calcium Total Bilirubin Direct Bilirubin AST ALT Alkaline Phosphatase C-Reactive Protein B-Natriuretic Peptide Total Protein Albumin Bld Cult ID Panel PCR 05/02/22 05/02/22 05/02/22 07:02 07:06 11:07 WBC RBC Hgb Hct MCV MCH MCHC RDW Std Deviation RDW Coeff of Paulo Plt Count MPV Immature Gran % (Auto) Neut % (Auto) Lymph % (Auto) [place] % (Auto) Eos % (Auto) Baso % (Auto) Neut # (Auto) Lymph # (Auto) [place] # (Auto) Eos # (Auto) Baso # (Auto) Immature Gran # (Auto) ESR Sodium 135 L Potassium 3.8 Chloride 92 L Carbon Dioxide 34 H Anion Gap 9 BUN 27 H Creatinine 1.67 H Est Cr Clr Drug Dosing 42.3 Est GFR ( Amer) 43.5 Est GFR (Non-Af Amer) 37.5 BUN/Creatinine Ratio 16.2 Glucose 148 H POC Glucose 136 H 255 H Calcium 10.0 Total Bilirubin Direct Bilirubin AST ALT Alkaline Phosphatase C-Reactive Protein B-Natriuretic Peptide Total Protein Albumin Bld Cult ID Panel PCR Diagnostic Findings Microbiology 04/29/22 15:05 Finger,Left Index Gram Stain - Final 04/29/22 15:05 Finger,Left Index Aerobic and Anaerobic Culture - Preliminary No growth to date. 04/27/22 20:29 Blood Aerobic Blood Culture - Preliminary No growth in Aerobic bottle after 48 hours. 04/27/22 20:29 Blood Anaerobic Blood Culture - Preliminary Gram positive bacilli 04/27/22 20:42 Blood Aerobic Blood Culture - Preliminary No growth in Aerobic bottle after 48 hours. 04/27/22 20:42 Blood Anaerobic Blood Culture - Preliminary No growth in Anaerobic bottle after 48 hours. Left Hand xray 04/27/22 IMPRESSION: 1. Interval development of erosive changes and a pathologic fracture the distal tuft of the left index finger. This could be due to osteomyelitis or acro- osteolysis. 2. Diffuse soft tissue swelling within the left hand. 3. Linear metallic foreign bodies within the second through fourth digits which are new from the prior study. 4. Chronic erosive changes/acro osteolysis within the distal murray of the third and fourth fingers. Left hand CT 04/28/22 IMPRESSION: 1. Diffuse soft tissue edema throughout the left hand most pronounced at the index finger. This favors a cellulitis. 2. No definite loculated fluid collections on this noncontrast study to suggest an abscess. 3. Erosive changes at the distal tuft of the left index finger with an associated fracture. This could be due to acro osteolysis or an osteomyelitis. 4. Chronic erosive changes seen within the distal murray of the third and fourth fingers. 5. Multiple linear metallic foreign body seen within the second through fourth fingers. 6. This report was called/faxed to the emergency department following dictation. Left hand MRI 04/29/22 IMPRESSION: 1. Limited exam secondary to motion and susceptibility artifact related to foreign bodies. 2. Partial amputation of the fifth finger with erosive changes of the second, third and fourth distal fingers, better evaluated on the comparison CT study. 3. Distal tear with retraction involving the second finger flexor digitorum profundus tendon. 4. Diffuse subcutaneous, deep tissue and intramuscular edema without abscess. Chest X-Ray 05/01/22 08:31 TWO VIEW CHEST CLINICAL HISTORY: Hypoxia FINDINGS: AP and lateral chest radiographs are compared to study dated 04/27/2022. The AP views are degraded by apical hepatic positioning. The patient is status post midline sternotomy. A single-lead cardiac AICD is unchanged in position. A coronary artery stent is in place. The heart is enlarged noting atherosclerotic calcification of the thoracic aorta. There is pulmonary vascular congestion. Scarring/atelectasis is noted at the lung bases. A calcified granuloma is seen at the left lung base. There is no pneumothorax. The skeletal structures are osteopenic. The bony thorax appears intact. IMPRESSION: 1. Cardiomegaly and AICD with evidence of congestive failure. 2. No airspace consolidation or large pleural effusion is identified. Medications Administered Home Medications Medication Instructions Recorded Confirmed Last Taken aspirin 81 mg tablet,delayed 81 mg PO QAM 06/04/18 04/27/22 12/05/20 release nitroglycerin 0.4 mg sublingual 0.4 mg sublingual Q5M PRN Chest 02/25/19 04/27/22 Unknown tablet (Nitrostat) Pain cholecalciferol (vitamin D3) 50 4,000 unit PO QAM 04/22/20 04/27/22 12/05/20 mcg (2,000 unit) capsule blood-glucose meter,continuous #1 ea 11/10/20 04/25/22 Unknown (Dexcom G6 Driver Material Handler misc) blood-glucose sensor (Dexcom G6 #3 ea 11/10/20 04/25/22 Unknown Sensor device) blood-glucose transmitter (Dexcom #1 ea 11/10/20 04/25/22 Unknown G6 Transmitter device) gabapentin 300 mg capsule 600 mg PO BID #360 caps 05/21/21 04/27/22 Unknown rivaroxaban 15 mg tablet (Xarelto) 15 mg PO QPM #90 tabs 05/26/21 04/27/22 Unknown spironolactone 25 mg tablet 25 mg PO BID #180 tabs 06/11/21 04/27/22 Unknown duloxetine 60 mg capsule,delayed 60 mg PO QAM #90 caps 08/25/21 04/27/22 Unknown release metoprolol succinate 100 mg 100 mg PO QAM #90 tabs 08/25/21 04/27/22 Unknown tablet,extended release 24 hr montelukast 10 mg tablet 10 mg PO HS #90 tabs 09/10/21 04/27/22 Unknown bumetanide 1 mg tablet 1 mg PO BID #200 tabs 11/23/21 04/27/22 Unknown blood sugar diagnostic (FreeStyle 12/01/21 04/25/22 Unknown Lite Strips) fenofibrate 54 mg tablet 54 mg PO HS 01/04/22 04/27/22 Unknown ketoconazole 2 % topical cream 1 applic topical DAILY PRN Rash 01/04/22 04/27/22 Unknown insulin glargine 100 unit/mL 80 unit (0.8 mL) subcut BID high 01/17/22 04/27/22 Unknown subcutaneous solution (Lantus blood sugar #150 mL U-100 Insulin) atorvastatin 80 mg tablet 80 mg PO HS #90 tabs 03/19/22 04/27/22 Unknown pantoprazole 20 mg tablet,delayed 20 mg PO QAM #90 tabs 03/19/22 04/27/22 Unknown release insulin syringe-needle U-100 1 mL #600 ea 04/07/22 04/25/22 Unknown 31 gauge x 5/16" (BD Insulin Syringe Ultra-Fine) insulin aspart U-100 100 unit/mL See Rx Instructions .Route 04/19/22 04/27/22 Unknown subcutaneous solution (Novolog .COMPLEX #280 mL U-100 Insulin aspart) doxycycline hyclate 100 mg tablet 100 mg PO BID 10 days #20 tabs 04/25/22 04/27/22 Unknown empagliflozin 25 mg tablet 25 mg PO DAILY 04/27/22 04/27/22 Unknown (Jardiance) amoxicillin 875 mg-potassium 1 tab PO BID #28 tabs 05/02/22 Unknown clavulanate 125 mg tablet docusate sodium 100 mg capsule 100 mg PO BID #0 caps 05/02/22 Unknown doxycycline hyclate 100 mg tablet 100 mg PO BID 14 days #28 tabs 05/02/22 Unknown lisinopril 5 mg tablet 2.5 mg PO QAM #90 tabs 05/02/22 04/27/22 Unknown sennosides 8.6 mg tablet (Senokot) 17.2 mg PO HS #0 tabs 05/02/22 Unknown
--- NOTE | 2022-05-03 06:07 | Electrocardiogram Report ---
Test Reason : Blood Pressure : / mmHG Vent. Rate : 081 BPM Atrial Rate : 111 BPM P-R Int : 000 ms QRS Dur : 174 ms QT Int : 438 ms P-R-T Axes : 000 -42 123 degrees QTc Int : 508 ms Atrial fibrillation with premature ventricular or aberrantly conducted complexes Left axis deviation Left bundle branch block Abnormal ECG When compared with ECG of 27-APR-2022 20:15, No significant change was found Confirmed by Buster Doran ([id number]) on 05/03/2022 6:07:07 AM Referred By: REFERRED SELF Confirmed By:Buster Doran
--- NOTE | 2022-05-09 13:49 | Discharge Summary ---
Date of Service May 02, 2022 Admission HPI Per Admitting Provider 81 y/o M w/ PMHx of DM2 on insulin, HFpEF, multivessel CAD, CKD3, afib on Xarelto, and lumbar spinal stenosis who presents with ongoing left hand infection from 04/14 using a tomato slicer. He has failed outpatient antibiotics, initially w/ cefdinir, then switched to doxycycline on 04/25. He has had increased falls for the past 2 weeks. Since this afternoon, patient has had increased confusion, chills, so family called EMS. Family states that patient's state of health has not been the best with his chronic medical conditions contributing to patient's depressed affect and decreased PO intake. BSG was 50 at EMS arrival and he required 2 separate doses of dextrose. In the ED, patient was more sleepy than usual, but arousable. He denies current pain. Tdap in 2019. ED course: Vanc. Zosyn. ecg w/ afib, rate controlle. lbbb (not new). pvcs. Principal Diagnosis infection of left hand Discharge Exam Constitutional: WD/WN, vitals as above Eyes: + anicteric sclerae Neck: trachea midline, no thyromegaly Respiratory: normal respiratory effort, lungs clear to auscultation Cardiovascular: Rate/Rhythm: regular rate and + irregularly irregular Heart Sounds: no murmur Extremities: no edema Chest (Breasts): Chest: normal inspection of chest Gastrointestinal (Abdomen): normal bowel sounds, soft, nontender, no hepatosplenomegaly Musculoskeletal: Extremities: + extremities abnormal to inspection (Left hand wrapped in dressing and gauze not removed), no cyanosis and no clubbing Skin: no rashes, warm and dry Neurologic: moves all extremities and awake; no focal motor deficits Psychiatric: Orientation: alert, oriented to person, oriented to place and cooperative Lymphatic: no lymphedema Discharge Data Allergies Allergy/AdvReac Type Severity Reaction Status Date / Time No Known Drug Allergies Allergy Unknown NKDA Verified 04/25/22 13:36 Consultations 04/27/22 22:49 ED Decision to Admit Stat 04/28/22 07:00 Consult Orthopedic Surgery Routine 05/02/22 13:12 Consult Infectious Diseases Stat Procedures Performed Operation Date: 04/29/22 14:20 Actual Procedures p Left Index Finger Incision and Drainage Flexor Tenosynovitis, amputation left flexor digitorum profundus tendon.(Left) - Humza Zurita MD Ordered Studies 04/28/22 01:16 CT hand LT wo con Urgent CT head/brain wo con Urgent 04/29/22 00:00 MR hand LT wo con Urgent Hospital Course (1) Infection of left hand: Patient is an 81 y/o M w/ PMHx of DM2 on insulin with severe peripheral neuropathy, HFrEF, multivessel CAD s/p CABG, CKD3, afib on Xarelto, and lumbar spinal stenosis who presents with ongoing left hand infection from 04/14 since he cut himself with a serrated knife while cutting an onion. He has failed outpatient antibiotics cefdinir x 10 days and doxy x 2 days. With sepsis, POA- leukocytosis to 18.79 On admission and is now improved on . With tachycardia now improved -Was given vanc/zosyn in ED and then switched to daptomycin and IV Zosyn after admission -Cultures pending - CT hand with possible osteomyelitis acute versus chronic, edema, cellulitis - consult ortho appreciated-obtain MRI of the hand 04/29 which shows significant edema and tenosynovitis -Now s/p amputation of distal finger and flexor tendon removal on 04/29 -Postoperative care as per orthopedic surgery -CRP and ESR significantly elevated-follow along with CBC and CMP -Will likely need prolonged course of antibiotics upon discharge and close follow-up with orthopedics Consulted ID: recommended cipro, augmentin and doxycycline as cultures were inderteminate. However, due to elavted QTC >500, will hold ciprofloxacin. Will not cover for pseudominas but will continue brod coverage with doxycycline and augmentin. Patient will continue for 14 more days. (2) Sepsis: Sepsis, POA--> 2/2 hand infection, OM, septic tenosynovitis flexor tendons of hand --> continue abx broad spectrum with Zosyn and Dapto, follow cxs - Ortho consulted and now s/p amputation of distal index finger and tendon removal,debridement (3) Hypoxia: Acute respiratory failure with hypoxia-2/2 HFrEF-diuresing, weaning off O2 has remained negative balance on (4) Metabolic encephalopathy: Metabolic encephalopathy-2/2 sepsis, hypoglycemia--> now resolved CT head negative (5) Chronic HFrEF (heart failure with reduced ejection fraction): acute on chronic HFrEF, presented with pulm edema, significant hypoxia diuresed with IV lasix several doses initially, now improved, weaned down to 2LNC ECHO 2020 with LVEF 35-40%, mod-severe LVH, LAD territory WMAs -dc IV lasix and revert to home po Bumex 1mg bid -continue aldactone, Toprol XL -hold lisinopril -Daily weights, strict I's and O's (6) Hypoglycemia: - bsg 50 at ems arrival. Had several lows after admission pharmacy glycemic consult (restart insulin cautiously). home regimen has large amount of lantus (70-80u BID); likely contributory in setting of decreased PO intake Now improved (7) Atrial fibrillation: permanent, rate controlled holding Xarelto for surgery, now restart tomorrow continue metoprolol (8) Demand ischemia of myocardium: mildly elevated trop, no CP, no ECG changes, not [place] (9) Hypertension: BPs controlled continue metoprolol,aldactone holding ACEi while diuresing restart home po Bumex dc IV lasix (10) 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, with long- term current use of insulin: - pharmacy glycemic consult as above Hemoglobin A1c 8.0% in 03/2022 (11) CAD, multiple vessel: s/p CABG continue ASA, statin, beta elías (12) Chronic kidney disease, stage III (moderate): Creatinine is improved since admission than 1.7 -Avoid nephrotoxins -renally dose meds when appropriate (13) Diabetic peripheral neuropathy: Severe in hands and feet, has no sensation Continue duloxetine, gabapentin Has difficulty with falls secondary to neuropathy (14) PAD (peripheral artery disease): Continue aspirin, Xarelto, statin (15) Paroxysmal ventricular tachycardia: Status post ICD placement (16) Presence of single chamber implantable cardioverter-defibrillator (ICD): Noted (17) Sleep apnea: does not use CPAP Plan DVT prophylaxis-Xarelto Total Time Total Time Spent Total Time Spent (In Minutes): 35 Discharge Plan Discharge Items Patient Disposition: Transfer Inpatient Rehab Fac Reason For Visit: HAND INFECTION, SEPSIS Discharge Diagnosis: hand infection Activity: Resume your previous activity Non-emergency contact: Primary Care Provider Call non-emergency contact if: you have any medication questions Follow-up/Referrals: Tere Narayan MD [Primary Care Provider] - Diet: Carb Consistent or DM2 and Heart Healthy Jacinto Attending Provider Instructions: \The dressing may be changed tomorrow by nursing. The incisions at the palm may be dressed with Band-Aids. Dry gauze at the index finger amputation site. Cultures have not had any growth at this point. transition to oral antibiotics upon discharge. The patient may follow-up in Orthopedic office in approximately 10 to 14 days from surgery. (04/29/22) Jacinto Tag Stringer Provider Instructions: ACTIVITY RECOMMENDATIONS: * Avoid lifting anything heavier than a medium water glass until your first post operative visit. SPECIAL CARE INSTRUCTIONS: * Your bandage should be left in place until 72 hours after surgery. Band- Aids may be used to cover the incisions after the dressing is removed. * Some drainage onto the dressing may occur. This is normal. * If the bandage feels excessively tight, you may loosen the elastic bandage. Then call the physician's office for further instructions. * If possible, keep your hand elevated above the level of your heart for the first 2 post operative days. You may use a sling if necessary. * You should move your fingers regularly (50-100 motions per hour) unless otherwise instructed. SPECIAL PRECAUTIONS: * If you notice increased drainage, fever over 101 degrees F. or severe, unremitting pain, call your physician/office at . * You may have been prescribed pain medication. If you experience nausea and/or skin rash, discontinue this medication and contact our office for an alternative medication. FOLLOW UP VISIT: If appointment is not already scheduled: Please call [facility] to make a follow-up appointment for 12-14 days after your surgery at . Pending Studies at Discharge: No Stand-Alone Forms: My [facility] Skilled Items Patient informed of condition?: No DNR: Yes Discharge Level of Care: Acute rehab Communicable Disease: No Discharge Prognosis: Stable Lines: None Urinary Catheter: No Medications and DC Order Prescriptions: New sennosides [Senokot] 8.6 mg Tablet 17.2 mg PO HS Qty: 0 0RF docusate sodium 100 mg Capsule 100 mg PO BID Qty: 0 0RF amoxicillin-pot clavulanate 875-125 mg tablet 1 tab PO BID Qty: 28 0RF doxycycline hyclate 100 mg tablet 100 mg PO BID 14 Days Qty: 28 0RF Continued gabapentin 300 mg capsule 600 mg PO BID Qty: 360 3RF Xarelto 15 mg tablet 15 mg PO QPM Qty: 90 3RF spironolactone 25 mg tablet 25 mg PO BID Qty: 180 3RF Hold Instructions: Hyperkalemia duloxetine 60 mg capsule,delayed release(DR/EC) 60 mg PO QAM Qty: 90 3RF metoprolol succinate 100 mg tablet extended release 24 hr 100 mg PO QAM Qty: 90 3RF montelukast 10 mg tablet 10 mg PO HS Qty: 90 3RF bumetanide 1 mg tablet 1 mg PO BID Qty: 200 3RF Hold Instructions: Pt rpts no RF at pharm - last dose ~ 01/21/21. Now lasix Rx Instructions: take at 8am, and then about 4pm each day. May increase to 2 mg BID for weight gain, SOB, edema. Lantus U-100 Insulin 100 unit/mL solution 80 unit subcut BID Qty: 150 1RF (DME) insulin syringe-needle U-100 [BD Insulin Syringe Ultra-Fine] 1 mL 31 gauge x 5/16 syringe See Rx Instructions .ROUTE .MEDSUPPLY Qty: 600 3RF Rx Instructions: use 6 x daily to inject insulin insulin aspart U-100 [Novolog U-100 Insulin aspart] 100 unit/mL solution See Rx Instructions .ROUTE .COMPLEX Qty: 280 3RF Dose Instruction: INJECT 65 UNITS UNDER THE SKIN FOUR TIMES A DAY PLUS SLIDING SCALE, MAXIMUM DAILY DOSE: 300 UNITS Rx Instructions: INJECT 65 UNITS UNDER THE SKIN FOUR TIMES A DAY PLUS SLIDING SCALE, MAXIMUM DAILY DOSE: 300 UNITS cholecalciferol (vitamin D3) 50 mcg (2,000 unit) capsule 4,000 unit PO QAM pantoprazole 20 mg tablet,delayed release (DR/EC) 20 mg PO QAM Qty: 90 3RF atorvastatin 80 mg tablet 80 mg PO HS Qty: 90 3RF doxycycline hyclate 100 mg tablet 100 mg PO BID 10 Days Qty: 20 0RF (DME) Dexcom G6 Sensor Device See Rx Instructions .ROUTE .MEDSUPPLY Qty: 3 Rx Instructions: As directed (DME) Dexcom G6 Transmitter Device See Rx Instructions .ROUTE .MEDSUPPLY Qty: 1 Rx Instructions: As directed (DME) Dexcom G6 [employer] Supervisor Misc See Rx Instructions .ROUTE .MEDSUPPLY Qty: 1 Rx Instructions: As directed (DME) FreeStyle Lite Strips Strip See Rx Instructions .ROUTE .MEDSUPPLY Rx Instructions: TEST 1 TIMES DAILY nitroglycerin [Nitrostat] 0.4 mg tablet, sublingual 0.4 mg Sublingual Q5M PRN (Reason: Chest Pain) Rx Instructions: NEEDED FOR CHEST PAIN : ONE TABLET UNDER THE TONGUE EVERY 5 MINUTES UP TO 3 DOSES. aspirin 81 mg Tablet,Delayed Release (Dr/Ec) 81 mg PO QAM fenofibrate 54 mg tablet 54 mg PO HS ketoconazole 2 % cream 1 applic topical DAILY PRN (Reason: Rash) Jardiance 25 mg tablet 25 mg PO DAILY Changed lisinopril 5 mg tablet 2.5 mg PO QAM Qty: 90 3RF Discharge Orders: Discharge Order (Routine); Ordered 05/02/22 Ordered By: Arnulfo Uriostegui Admission Data Admit Date/Time: 04/28/22 00:36 Attending Provider: Arnulfo Uriostegui Admit Provider: Zach Dupont Primary Care Provider: Tere Narayan Other Providers: [facility] ; [place] [place] ; Taylor Fowlre ; Humza Zurita ; Rica Venegas Coding Level of Care Code D/C DAY MANAGEMENT >30 MINS Diagnoses Infection of left hand L08.9 Sepsis A41.9 Hypoxia R09.02 Metabolic encephalopathy G93.41 Chronic HFrEF (heart failure with reduced ejection fraction) I50.22 Hypoglycemia E16.2 Atrial fibrillation I48.91 Atrial fibrillation type: unspecified Demand ischemia of myocardium I24.8 Hypertension I10 Hypertension type: essential hypertension 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, with long-term current use of insulin E11.29; E11.65; Z79.4 CAD, multiple vessel I25.10 Chronic kidney disease, stage III (moderate) N18.3 Diabetic peripheral neuropathy E11.42 PAD (peripheral artery disease) I73.9 Paroxysmal ventricular tachycardia I47.2 Presence of single chamber implantable cardioverter-defibrillator (ICD) Z95.810 Sleep apnea G47.30
== END 2022-05-02 16:00 | DRG 853 ==
LOC: ED 20:03 → SUATTDRO 04-28 00:36 → EDINP 04-28 00:36 → 2E 04-28 02:53

== ENCOUNTER 2022-07-24 20:50 | Inpatient (IN) ==
[2022-07-24 21:16] LABS: iSTAT Hemoglobin 14.6 g/dl (14.0-18.0); iSTAT Potassium 3.4 mmol/L (3.3-5.0)
[2022-07-24 21:40] LABS: Basophils # (auto) 0.03 K/uL (0-0.2); Basophils % (auto) 0.4 %; Hematocrit (blood only) 40.4 % (40.1-51.0); Hemoglobin 13.2 g/dl (14.0-18.0); Immature Granulocytes # (auto) 0.03 K/uL (0.00-0.02); Immature Granulocytes % (auto) 0.4 %; Lymphocytes # (auto) 0.71 K/uL (1.2-3.4); Lymphocytes % (auto) 8.9 %; Mean Corpuscular Hemoglobin 30.3 pg (25.0-34.0); Mean Corpuscular Hgb Conc 32.7 g/dL (32.0-36.0); Mean Corpuscular Volume 92.7 fL (80.0-100.0); Mean Platelet Volume 10.8 fL (9.4-12.4); Monocytes # (auto) 1.64 K/uL (0.24-0.82); Monocytes % (auto) 20.6 %; Neutrophils # (auto) 5.54 K/uL (1.4-6.5); Neutrophils % (auto) 69.7 %; Platelet Count 318 K/uL (130-400); RDW Coefficient of Variation 14.8 % (11.5-14.5); RDW Standard Deviation 50.9 fL (36.4-46.3); Red Blood Count 4.36 M/uL (4.63-6.08); White Blood Count 7.95 K/ul (4.8-10.8)
[2022-07-24 21:57] LABS: Alanine Aminotransferase 9 U/L (7-52); Albumin Globulin Ratio 1.1 (0.9-2); Albumin Level 3.9 gm/dl (3.4-5.0); Alkaline Phosphatase 63 U/L (34-104); Anion Gap 6 (3-11); Aspartate Aminotransferase 24 U/L (13-39); BUN Creatinine Ratio 23.2 (10-20); Bilirubin,Total 1.3 mg/dl (0.2-1.0); Blood Urea Nitrogen 42 mg/dl (6-23); Calcium 9.6 mg/dl (8.5-10.1); Carbon Dioxide 41 mmol/L (21-32); Chloride 85 mmol/L (98-107); Est GFR (African American) 39.5 ml/min; Est GFR (Non-African American) 34.1 ml/min; Globulin 3.6 gm/dl (2.5-4.0); Glucose 199 mg/dl (70-99(Fasting)); Lipase 11 U/L (11-82); Phosphorus 3.3 mg/dl (2.5-4.9); Potassium 3.5 mmol/L (3.5-5.1); Sodium 132 mmol/L (136-145); Total Protein 7.5 gm/dl (6.0-8.3)
--- NOTE | 2022-07-24 22:06 | CT Scan Report ---
CT SCAN OF THE BRAIN WITHOUT IV CONTRAST CLINICAL HISTORY: Change in mental status. COMPARISON STUDY: CT of the brain dated 04/28/2022. TECHNIQUE: Unenhanced axial CT scan of the brain is performed from the vertex to the skull base. A do se lowering technique was utilized adhering to the principles of ALARA. CT DOSE: 884.08 mGy.cm FINDINGS: Brain parenchyma: There is age-related involutional change noting moderate subcortical and periventri cular microangiopathic disease. There is no hemorrhage, mass effect, or evidence of acute territorial ischemia by CT criteria. Kumar-white matter differentiation is preserved. No extra-axial fluid collec tion is seen. Ventricles, sulci, cisterns: Prominent secondary to involutional change. Intracranial vasculature: There is atherosclerotic calcification of the cavernous carotid and vertebr al arteries. Calvarium: No acute calvarial abnormality is seen. A chronic cortical defect in the right frontal bon e is related to remote fracture. This is unchanged from prior examinations. Sinuses and mastoids: There is trace mucosal thickening within the right frontal sinus and the maxill eric antra. The mastoid air cells are well pneumatized. Orbits: The bony orbits are grossly intact. There are bilateral ocular lens implants. IMPRESSION: There is no hemorrhage, mass effect, or evidence of acute territorial ischemia by CT darryl combs. ACT 112: Negative or not required by law. Electronically signed by: Hiram Leal M.D. 07/24/2022 10:02 PM
[2022-07-24 22:09] LABS: HCO3 VBG 42 mmol/L; Oxygen Saturation VBG < 60.0 %; PCO2 VBG 57 mmHg (38-50); PO2 VBG 23 mmHg; pH VBG 7.48 (7.36-7.41)
[2022-07-24 22:18] LABS: INR 1.1 (0.9-1.1); Prothrombin Time 11.9 Seconds (9.0-12.0)
--- NOTE | 2022-07-24 22:19 | XRay Report ---
SINGLE VIEW CHEST CLINICAL HISTORY: Dyspnea. FINDINGS: 2 AP, portable, upright chest radiographs are compared to study dated 05/01/2022 and correl ated with chest CT dated 12/08/2020 . The examination is degraded by portable technique and patient rot ation. The patient is status post midline sternotomy. A single lead cardiac AICD is unchanged in posi tion and partially obscures the left mid chest. The heart is enlarged noting atherosclerotic calcific ation of the thoracic aorta. There is pulmonary vascular congestion. Bilateral airspace opacities lik yessy represent interstitial edema. Small pleural effusions are noted. No pneumothorax is seen. The ske letal structures are osteopenic. The bony thorax is grossly intact. Arthritic change is seen in the s houlders. IMPRESSION: 1. Cardiomegaly and AICD with evidence of congestive failure. 2. Bilateral airspace opacities likely represent pulmonary edema. Correlate clinically for evidence o f a superimposed infectious/inflammatory pneumonitis. Radiographic follow-up to resolution is recomme nded. 3. Small pleural effusions. ACT 112: Negative or not required by law. Electronically signed by: Hiram Leal M.D. 07/24/2022 10:17 PM
[2022-07-24 22:49] LABS: Influenza A virus by PCR Negative (Neg); Influenza B virus by PCR Negative (Neg); RSV by PCR Negative (Neg)
[2022-07-24 23:07] LABS: SARS CoV2 RNA(COVID-19) Ceph POSITIVE (Negative)
[2022-07-24] MEDS ORDERED: dexAMETHasone**PF** 10 MG/ML VIAL IV ONE (23:24)
[2022-07-24] MEDS ORDERED: IPRATROPIUM BROMIDE/ALBUTEROL respimat INH INH STA (23:24)
[2022-07-24] MEDS ORDERED: BUMETANIDE 2 MG in SYRINGE 0 ML IV ONE (23:24)
[2022-07-24] MEDS ORDERED: guaiFENesin 600 MG TABCR PO STA (23:24)
--- NOTE | 2022-07-24 23:26 | Emergency Department Note ---
Impression & Plan COVID-19, CHF (congestive heart failure), Permanent atrial fibrillation, Elevated troponin, CKD (chronic kidney disease) ED Provider Note NAME: SANDY VELOZ AGE: 81 SEX: M ARRIVES VIA: Ambulance INFORMANT: Patient ED PROVIDER(S): Uri Espino MD CHIEF COMPLAINT: Confusion PLAN: Disposition: Admit MEDICAL DECISION MAKING: The patient is a pleasant 81-year-old gentleman with a past medical history of CKD, systolic heart failure, IDDM 2, hypertension, hyperlipidemia, CAD, chronic respiratory failure on home oxygen who presents to the emergency department via EMS for evaluation of confusion which concerned family. The patient is a poor historian and denies feeling confused. He denies any particular complaints. Unfortunately, family arrived to emergency department and stayed briefly before leaving without providing additional information. On arrival patient is chronically ill-appearing but no acute distress, afebrile with O2 saturation 90-90% on 4 L nasal cannula. He appears mildly dyspneic. He appears hypervolemic. He has wheezes and rhonchi of bilateral lower lung moreira. EKG demonstrates atrial fibrillation with a bundle branch block, similar to prior. Chest x-ray with bilateral airspace opacities which may reflect pulmonary edema in setting of patient's hypervolemia bulimia however also suspect component of pneumonia given the patient did test positive for COVID-19 on PCR. WBC 7K nonspecific., Nonspecific. H/H similar to prior. Platelets within normal limits. VBG 7.4 with PCO2 of 57, similar to prior. Chemistry without metabolic acidosis though bicarbonate is 41 similar to recent values in July consistent with chronic hypercapnia. Creatinine 1.8, similar to prior and values in setting of CKD. LFTs without significant abnormality. High- sensitivity troponin 288, increased from prior values though no recent values for comparison and BNP 237, nonspecific in setting of the patient CKD level consistent with the patient's hypervolemia. Influenza and RSV PCR's were negative. Again, COVID-19 PCR was positive. Given the patient's report of confusion from baseline with slight increased work of breathing and hypervolemia with evidence of COVID-pneumonia patient agrees with plan for admission. IV Bumex, dexamethasone, Combivent, guaifenesin ordered. Case was discussed with Dr. Fowler, [facility] hospitalist, who will evaluate the patient for admission. Triage Nursing notes reviewed and agree them. Prior medical records reviewed Vital Signs: reviewed Differential diagnosis: Infection, dehydration, metabolic abnormality, hypo/hyperglycemia, electrolyte disturbance, anemia, hypoxia, cardiac sources, intracerebral event, toxicologic, neurologic, as well as other pathologies. ER treatment provided: See below. Diagnostics interpreted by me: ECG: Atrial fibrillation, 80 bpm, PVCs, left bundle branch block, no sgarbossa criteria. QTc 537, QRS 188 Cardiac Monitoring: An order for continuous cardiac monitoring was placed and demonstrated Atrial fibrillation, 80 bpm, PVCs. Laboratory studies: See below Imaging studies: See below Consultation(s): Case was discussed with Dr. Fowler, [facility] hospitalist, who will evaluate the patient for admission. HPI: The patient is a pleasant 81-year-old gentleman with a past medical history of CKD, systolic heart failure, IDDM 2, hypertension, hyperlipidemia, CAD, chronic respiratory failure on home oxygen who presents to the emergency department via EMS for evaluation of confusion which concerned family. The patient is a poor historian and denies feeling confused. He denies any particular complaints. Unfortunately, family arrived to emergency department and stayed briefly before leaving without providing additional information. ROS: See above HPI for pertinent positives & negatives. A total of 10 systems reviewed and were otherwise negative. VITALS:See Below PHYSICAL EXAMINATION: GENERAL: Awake, alert, fatigued-appearing, in no distress HENT: Normocephalic, atraumatic. Oropharynx unremarkable. EYES: Normal conjunctiva. Sclera non-icteric. NECK: Supple. No nuchal rigidity. FROM. No JVD. RESPIRATORY: Wheezes and rhonchi of bilateral lower lung moreira. CARDIAC: Regular rate, normal rhythm. Extremities warm and well perfused. Pulses equal. ABDOMEN: Soft, non-distended. No tenderness to palpation. No rebound or guarding. No masses. RECTAL: Deferred. MUSCULOSKELETAL: Chest examination reveals no tenderness. The back is symmetrical on inspection without obvious abnormality. There is no CVA tenderness to palpation. No joint edema. LOWER EXTREMITIES: Calves are equal size bilaterally and non-tender. 1+ BLE edema. No discoloration. NEURO: Normal sensorium. No sensory or motor deficits noted. SKIN: No rash or jaundice noted. ED COURSE: Critical Care: I have personally spent greater than 35 minutes of critical care time in the direct management of this patient. This includes bedside care, interpretation of diagnostic studies, and testing, discussion with consultants, patient, and family members, and other required patient management activities. This 35 minutes is in excess of all separately billable procedures. Uri Espino MD Past Med/Surg History Medical History Anxiety Atrial fibrillation Reason for Xarelto Follows with [facility] C4 cervical fracture No surgical intervention. Full ROM. Occurred 2-3 years ago- no current issues CAD (coronary artery disease) S/p RCA PCI in 1991, 1998, and 2004- totaling 5 stents to prox and mid RCA S/p 3 vessel CABG 2008 Cardiomyopathy Carotid artery stenosis, asymptomatic No hemodynamically significant stenosis per 2019 CTA of neck to ICAs bilaterally CHF (congestive heart failure) Chronic kidney disease, stage III (moderate) Depression DM type 2 (diabetes mellitus, type 2) IDDM Dysphagia Occasional (per ) Gastroparesis GERD (gastroesophageal reflux disease) Well controlled and stable Hearing deficit [place] History of traumatic brain injury 2018 (after fall down stairs) > subdural hematoma resolved without surgical intervention, no residual issues Hyperlipidemia Hypertension ICD (implantable cardioverter-defibrillator) in place [employer]. Implanted ~2017 for sustained VT Insomnia LBBB (left bundle branch block) Chronic dating back to at least 07/2019 EKG per charts PAD (peripheral artery disease) H/o of right SFA/TP trunk/PT angioplasty at [facility] (2011) Peripheral neuropathy Poor historian Sensorineural hearing loss of both ears Situational depression Sleep apnea Refuses device per records Spinal stenosis Subdural hematoma 2018 (after fall down stairs) > subdural hematoma resolved without surgical intervention, no residual issues Venous insufficiency Surgical History History of anesthesia reaction Combative with emergence History of back surgery History of cardiac cath Multiple (hx stents) History of cataract surgery R/L History of cholecystectomy History of colonoscopy History of knee replacement Left Hx of angioplasty Hx of CABG CABG x3 (2008) S/P epidural steroid injection S/P ICD (internal cardiac defibrillator) procedure Family History Daughter Family history of reaction to anesthesia PONV Sister Cancer Father Family history of diabetes mellitus Grandmother (Maternal) Family history of diabetes mellitus Other No significant family history Denies family history of Ovarian cancer Prostate cancer Coronary heart disease Breast cancer Colorectal cancer Social History Smoking Status: Former smoker Tobacco Type: Cigarettes Age Started Using Tobacco: 19; Age Quit Using Tobacco: 49; packs per day: 2; Second Hand Exposure: Yes (SPOUSE SMOKES (OUTSIDE)); Hx Alcohol Use: No Hx Substance Use: No Preferred Language: [place] Citizen Communication Ability: Effective Visual Impairment: Limited Hearing Ability: Hard of Hearing Credit Union Teller Required: No Beliefs That Will Affect Care: None marital status: Current Living Situation: Spouse current occupational status: retired 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 How many Children do You have: 6 Other Information That Helps Us Care for You: No Feels Safe at Home: Yes Safety Concerns: Feels Safe At This Time Childhood Exposure to Second-Hand Smoke: Yes caffeine: No during the past year weight has: remained stable Dental Care, Regularly: Yes Physical Activity Frequency: Does not Exercise Seatbelt Use: never Sunscreen Use: No Assistive Devices: CPAP Allergies Allergies Allergy/AdvReac Type Severity Reaction Status Date / Time No Known Allergies Allergy Verified 07/15/22 08:41 Home Meds Home Medications Medication Instructions Recorded Confirmed aspirin 81 mg tablet,delayed 81 mg PO QAM 06/04/18 07/15/22 release nitroglycerin 0.4 mg sublingual 0.4 mg sublingual Q5M PRN Chest 02/25/19 07/15/22 tablet (Nitrostat) Pain cholecalciferol (vitamin D3) 50 4,000 unit PO QAM 04/22/20 07/15/22 mcg (2,000 unit) capsule blood-glucose meter,continuous #1 ea 11/10/20 06/16/22 (Dexcom G6 Associate Theatre Professor) blood-glucose sensor (Dexcom G6 #3 ea 11/10/20 06/16/22 Sensor device) blood-glucose transmitter (Dexcom #1 ea 11/10/20 06/16/22 G6 Transmitter device) blood sugar diagnostic (FreeStyle 12/01/21 06/16/22 Lite Strips) fenofibrate 54 mg tablet 54 mg PO HS 01/04/22 07/15/22 ketoconazole 2 % topical cream 1 applic topical DAILY PRN Rash 01/04/22 07/15/22 Previous Rx's Medication Instructions Recorded gabapentin 300 mg capsule 600 mg PO BID #360 caps 05/21/21 duloxetine 60 mg capsule,delayed 60 mg PO QAM #90 caps 08/25/21 release metoprolol succinate 100 mg 100 mg PO QAM #90 tabs 08/25/21 tablet,extended release 24 hr montelukast 10 mg tablet 10 mg PO HS #90 tabs 09/10/21 insulin glargine 100 unit/mL 80 unit (0.8 mL) subcut BID high 01/17/22 subcutaneous solution (Lantus blood sugar #150 mL U-100 Insulin) atorvastatin 80 mg tablet 80 mg PO HS #90 tabs 03/19/22 pantoprazole 20 mg tablet,delayed 20 mg PO QAM #90 tabs 03/19/22 release insulin syringe-needle U-100 1 mL #600 ea 04/07/22 31 gauge x 5/16" (BD Insulin Syringe Ultra-Fine) insulin aspart U-100 100 unit/mL See Rx Instructions .Route 04/19/22 subcutaneous solution (Novolog .COMPLEX #280 mL U-100 Insulin aspart) docusate sodium 100 mg capsule 100 mg PO BID #0 caps 05/02/22 lisinopril 5 mg tablet 2.5 mg PO QAM #90 tabs 05/02/22 sennosides 8.6 mg tablet (Senokot) 17.2 mg PO HS #0 tabs 05/02/22 rivaroxaban 15 mg tablet (Xarelto) 15 mg PO QPM #90 tabs 05/20/22 spironolactone 25 mg tablet 25 mg PO BID #180 tabs 06/07/22 bumetanide 1 mg tablet 2 mg PO BID #360 tabs 07/15/22 Results & Data (ED) Vital Signs Vital Signs - 24 hr 07/24/22 20:56 07/24/22 21:08 07/24/22 21:50 Pulse Rate 87 Respiratory Rate 20 Blood Pressure Blood Pressure Mean Pulse Oximetry 98 86 L Oxygen Delivery Method Nasal Cannula Nasal Cannula Oxygen Flow Rate 4 4 Sepsis Recent Fever Within 48 Hours No Sepsis New/Unexplained Change in Mental Status Yes Oxygen Flow Rate - Titration 4 Pulse Oximetry Post Tiitration 93 07/24/22 23:00 07/25/22 00:00 07/25/22 00:31 Pulse Rate 80 71 83 Respiratory Rate 22 20 22 Blood Pressure 149/76 H 153/66 H 137/67 Blood Pressure Mean 100 95 90 Pulse Oximetry 92 93 98 Oxygen Delivery Method Nasal Cannula Nasal Cannula Oxygen Flow Rate 4 4 Sepsis Recent Fever Within 48 Hours Sepsis New/Unexplained Change in Mental Status Oxygen Flow Rate - Titration Pulse Oximetry Post Tiitration Laboratory Data Attestation: I reviewed the patient's lab results. 07/24/22 21:00 07/24/22 21:00 Lab Results 07/24/22 07/24/22 07/24/22 Range/Units 21:00 21:00 21:00 WBC 7.95 (4.8-10.8) K/ul RBC 4.36 L (4.63-6.08) M/uL Hgb 13.2 L (14.0-18.0) g/dl POC Hgb (14.0-18.0) g/dl Hct 40.4 (40.1-51.0) % POC Hct (42-52) % MCV 92.7 (80.0-100.0) fL MCH 30.3 (25.0-34.0) pg MCHC 32.7 (32.0-36.0) g/dL RDW Std Deviation 50.9 H (36.4-46.3) fL RDW Coeff of Paulo 14.8 H (11.5-14.5) % Plt Count 318 (130-400) K/uL MPV 10.8 (9.4-12.4) fL Immature Gran % (Auto) 0.4 % Neut % (Auto) 69.7 % Lymph % (Auto) 8.9 % Power % (Auto) 20.6 % Eos % (Auto) 0.0 % Baso % (Auto) 0.4 % Neut # (Auto) 5.54 (1.4-6.5) K/uL Lymph # (Auto) 0.71 L (1.2-3.4) K/uL Power # (Auto) 1.64 H (0.24-0.82) K/uL Eos # (Auto) 0.00 (0-0.50) K/uL Baso # (Auto) 0.03 (0-0.2) K/uL Immature Gran # (Auto) 0.03 H (0.00-0.02) K/uL PT Cancelled INR Cancelled VBG pH (7.36-7.41) VBG pCO2 (38-50) mmHg VBG pO2 mmHg VBG HCO3 mmol/L VBG O2 Saturation % VBG Base Excess mEq/L POC Sodium (135-144) mmol/L Sodium 132 L (136-145) mmol/L POC Potassium (3.3-5.0) mmol/L Potassium 3.5 (3.5-5.1) mmol/L POC Chloride (101-112) mmol/L Chloride 85 L (98-107) mmol/L Carbon Dioxide 41 H* (21-32) mmol/L POC Total CO2 (24-31) mmol/L Anion Gap 6 (3-11) POC Anion Gap (16-25) mmol/L POC BUN (7-18) mg/dl BUN 42 H (6-23) mg/dl Creatinine 1.81 H (0.6-1.4) mg/dl POC Creatinine (0.6-1.3) mg/dl Est Cr Clr Drug Dosing Not Reportable Est GFR ( Amer) 39.5 ml/min Est GFR (Non-Af Amer) 34.1 ml/min BUN/Creatinine Ratio 23.2 H (10-20) Glucose 199 H (70-99(Fasting)) mg/dl POC Glucose (other) (70-99) mg/dl Calcium 9.6 (8.5-10.1) mg/dl POC Ioniz Calcium Yarely (1.12-1.32) mmol/l Phosphorus 3.3 (2.5-4.9) mg/dl Magnesium 2.0 (1.7-2.4) mg/dl Total Bilirubin 1.3 H (0.2-1.0) mg/dl AST 24 (13-39) U/L ALT 9 (7-52) U/L Alkaline Phosphatase 63 (34-104) U/L Troponin I High Sens 288.8 H* (0-20) pg/ml B-Natriuretic Peptide (0-100) pg/ml Total Protein 7.5 (6.0-8.3) gm/dl Albumin 3.9 (3.4-5.0) gm/dl Globulin 3.6 (2.5-4.0) gm/dl Albumin/Globulin Ratio 1.1 (0.9-2) Lipase 11 (11-82) U/L Urine Color Urine Appearance (Clear) Urine pH (4.5-7.5) Ur Specific [place] (1.000-1.030) Urine Protein (Negative) Urine Glucose (UA) (Negative) Urine Ketones (Negative) Urine Blood (Negative) Urine Nitrite (Negative) Urine Bilirubin (Negative) Urine Urobilinogen (Negative) Ur Leukocyte Esterase (Negative) Urine WBC (Auto) (0-5) /hpf Urine RBC (Auto) (0-4) /hpf U Hyaline Cast (Auto) (0-5) /lpf U Epithel Cells (Auto) (0-5) /lpf Urine Bacteria (Auto) (Negative) SARS-CoV-2 (PCR) (Negative) Influenza Type A (PCR) (Neg) Influenza Type B (PCR) (Neg) RSV (RT-PCR) (Neg) 07/24/22 07/24/22 07/24/22 Range/Units 21:02 21:20 21:39 WBC (4.8-10.8) K/ul RBC (4.63-6.08) M/uL Hgb (14.0-18.0) g/dl POC Hgb 14.6 (14.0-18.0) g/dl Hct (40.1-51.0) % POC Hct 43 (42-52) % MCV (80.0-100.0) fL MCH (25.0-34.0) pg MCHC (32.0-36.0) g/dL RDW Std Deviation (36.4-46.3) fL RDW Coeff of Paulo (11.5-14.5) % Plt Count (130-400) K/uL MPV (9.4-12.4) fL Immature Gran % (Auto) % Neut % (Auto) % Lymph % (Auto) % Power % (Auto) % Eos % (Auto) % Baso % (Auto) % Neut # (Auto) (1.4-6.5) K/uL Lymph # (Auto) (1.2-3.4) K/uL Power # (Auto) (0.24-0.82) K/uL Eos # (Auto) (0-0.50) K/uL Baso # (Auto) (0-0.2) K/uL Immature Gran # (Auto) (0.00-0.02) K/uL PT INR VBG pH 7.48 H (7.36-7.41) VBG pCO2 57 H (38-50) mmHg VBG pO2 23 mmHg VBG HCO3 42 mmol/L VBG O2 Saturation < 60.0 % VBG Base Excess 16.0 mEq/L POC Sodium 132 L (135-144) mmol/L Sodium (136-145) mmol/L POC Potassium 3.4 (3.3-5.0) mmol/L Potassium (3.5-5.1) mmol/L POC Chloride 84 L (101-112) mmol/L Chloride (98-107) mmol/L Carbon Dioxide (21-32) mmol/L POC Total CO2 38 H (24-31) mmol/L Anion Gap (3-11) POC Anion Gap 14.0 L (16-25) mmol/L POC BUN 40 H (7-18) mg/dl BUN (6-23) mg/dl Creatinine (0.6-1.4) mg/dl POC Creatinine 2.0 H (0.6-1.3) mg/dl Est Cr Clr Drug Dosing Est GFR ( Amer) ml/min Est GFR (Non-Af Amer) ml/min BUN/Creatinine Ratio (10-20) Glucose (70-99(Fasting)) mg/dl POC Glucose (other) 201 H (70-99) mg/dl Calcium (8.5-10.1) mg/dl POC Ioniz Calcium Yarely 1.00 L (1.12-1.32) mmol/l Phosphorus (2.5-4.9) mg/dl Magnesium (1.7-2.4) mg/dl Total Bilirubin (0.2-1.0) mg/dl AST (13-39) U/L ALT (7-52) U/L Alkaline Phosphatase (34-104) U/L Troponin I High Sens (0-20) pg/ml B-Natriuretic Peptide 237 H (0-100) pg/ml Total Protein (6.0-8.3) gm/dl Albumin (3.4-5.0) gm/dl Globulin (2.5-4.0) gm/dl Albumin/Globulin Ratio (0.9-2) Lipase (11-82) U/L Urine Color Urine Appearance (Clear) Urine pH (4.5-7.5) Ur Specific [place] (1.000-1.030) Urine Protein (Negative) Urine Glucose (UA) (Negative) Urine Ketones (Negative) Urine Blood (Negative) Urine Nitrite (Negative) Urine Bilirubin (Negative) Urine Urobilinogen (Negative) Ur Leukocyte Esterase (Negative) Urine WBC (Auto) (0-5) /hpf Urine RBC (Auto) (0-4) /hpf U Hyaline Cast (Auto) (0-5) /lpf U Epithel Cells (Auto) (0-5) /lpf Urine Bacteria (Auto) (Negative) SARS-CoV-2 (PCR) (Negative) Influenza Type A (PCR) (Neg) Influenza Type B (PCR) (Neg) RSV (RT-PCR) (Neg) 07/24/22 07/24/22 07/25/22 Range/Units 21:39 21:44 00:25 WBC (4.8-10.8) K/ul RBC (4.63-6.08) M/uL Hgb (14.0-18.0) g/dl POC Hgb (14.0-18.0) g/dl Hct (40.1-51.0) % POC Hct (42-52) % MCV (80.0-100.0) fL MCH (25.0-34.0) pg MCHC (32.0-36.0) g/dL RDW Std Deviation (36.4-46.3) fL RDW Coeff of Paulo (11.5-14.5) % Plt Count (130-400) K/uL MPV (9.4-12.4) fL Immature Gran % (Auto) % Neut % (Auto) % Lymph % (Auto) % Power % (Auto) % Eos % (Auto) % Baso % (Auto) % Neut # (Auto) (1.4-6.5) K/uL Lymph # (Auto) (1.2-3.4) K/uL Power # (Auto) (0.24-0.82) K/uL Eos # (Auto) (0-0.50) K/uL Baso # (Auto) (0-0.2) K/uL Immature Gran # (Auto) (0.00-0.02) K/uL PT 11.9 INR 1.1 VBG pH (7.36-7.41) VBG pCO2 (38-50) mmHg VBG pO2 mmHg VBG HCO3 mmol/L VBG O2 Saturation % VBG Base Excess mEq/L POC Sodium (135-144) mmol/L Sodium (136-145) mmol/L POC Potassium (3.3-5.0) mmol/L Potassium (3.5-5.1) mmol/L POC Chloride (101-112) mmol/L Chloride (98-107) mmol/L Carbon Dioxide (21-32) mmol/L POC Total CO2 (24-31) mmol/L Anion Gap (3-11) POC Anion Gap (16-25) mmol/L POC BUN (7-18) mg/dl BUN (6-23) mg/dl Creatinine (0.6-1.4) mg/dl POC Creatinine (0.6-1.3) mg/dl Est Cr Clr Drug Dosing Est GFR ( Amer) ml/min Est GFR (Non-Af Amer) ml/min BUN/Creatinine Ratio (10-20) Glucose (70-99(Fasting)) mg/dl POC Glucose (other) (70-99) mg/dl Calcium (8.5-10.1) mg/dl POC Ioniz Calcium Yarely (1.12-1.32) mmol/l Phosphorus (2.5-4.9) mg/dl Magnesium (1.7-2.4) mg/dl Total Bilirubin (0.2-1.0) mg/dl AST (13-39) U/L ALT (7-52) U/L Alkaline Phosphatase (34-104) U/L Troponin I High Sens (0-20) pg/ml B-Natriuretic Peptide (0-100) pg/ml Total Protein (6.0-8.3) gm/dl Albumin (3.4-5.0) gm/dl Globulin (2.5-4.0) gm/dl Albumin/Globulin Ratio (0.9-2) Lipase (11-82) U/L Urine Color Yellow Urine Appearance Clear (Clear) Urine pH 7.0 (4.5-7.5) Ur Specific [place] 1.016 (1.000-1.030) Urine Protein 2+ H (Negative) Urine Glucose (UA) Trace H (Negative) Urine Ketones Trace H (Negative) Urine Blood Negative (Negative) Urine Nitrite Negative (Negative) Urine Bilirubin Negative (Negative) Urine Urobilinogen Negative (Negative) Ur Leukocyte Esterase Trace H (Negative) Urine WBC (Auto) 1-5 (0-5) /hpf Urine RBC (Auto) 0-4 (0-4) /hpf U Hyaline Cast (Auto) 1-5 (0-5) /lpf U Epithel Cells (Auto) 10-20 H (0-5) /lpf Urine Bacteria (Auto) Negative (Negative) SARS-CoV-2 (PCR) POSITIVE A* (Negative) Influenza Type A (PCR) Negative (Neg) Influenza Type B (PCR) Negative (Neg) RSV (RT-PCR) Negative (Neg) Administered Medications Insulin Aspart (Insulin Aspart Per Unit) 0 units SC ACHS NASREEN Stop: 08/24/22 03:14 Last Admin: 07/25/22 03:39 Dose: 7 units Documented By: NICCI Co-signed By: WANDA Discontinued Medications Albuterol (Ipratropium [place]/Albuterol Respimat Inh) 2 puffs INH NOW STA Stop: 07/24/22 23:25 Last Admin: 07/25/22 00:01 Dose: 2 puffs Documented By: YOUSIF Dexamethasone Sodium Phosphate (DexamethasonePf 10 Mg/Ml Vial) 6 mg IV NOW ONE Stop: 07/24/22 23:25 Last Admin: 07/24/22 23:35 Dose: 6 mg Documented By: SARAH Guaifenesin (Guaifenesin 600 Mg Tabcr) 600 mg PO NOW STA Stop: 07/24/22 23:25 Last Admin: 07/24/22 23:35 Dose: 600 mg Documented By: SARAH Bumetanide 2 mg/ Syringe 8 mls @ 4 mls/min IV ONE ONE Stop: 07/24/22 23:25 Last Admin: 07/24/22 23:56 Dose: 4 mls/min Documented By: SARAH Insulin Glargine (Lantus Per Unit Charge) 30 units SQ ONE ONE Stop: 07/25/22 03:16 Last Admin: 07/25/22 03:39 Dose: 30 units Documented By: NICCI Co-signed By: WANDA Imaging Data Radiologist's Impression: Chest X-Ray 07/24/22 21:08 SINGLE VIEW CHEST CLINICAL HISTORY: Dyspnea. FINDINGS: 2 AP, portable, upright chest radiographs are compared to study dated 05/01/2022 and correlated with chest CT dated 12/08/2020 . The examination is degraded by portable technique and patient rotation. The patient is status post midline sternotomy. A single lead cardiac AICD is unchanged in position and partially obscures the left mid chest. The heart is enlarged noting atherosclerotic calcification of the thoracic aorta. There is pulmonary vascular congestion. Bilateral airspace opacities likely represent interstitial edema. Small pleural effusions are noted. No pneumothorax is seen. The skeletal structures are osteopenic. The bony thorax is grossly intact. Arthritic change is seen in the shoulders. IMPRESSION: 1. Cardiomegaly and AICD with evidence of congestive failure. 2. Bilateral airspace opacities likely represent pulmonary edema. Correlate clinically for evidence of a superimposed infectious/inflammatory pneumonitis. Radiographic follow-up to resolution is recommended. 3. Small pleural effusions. ACT 112: Negative or not required by law. Electronically signed by: Hiram Leal M.D. 07/24/2022 10:[address] 07/24/22 21:08 CT SCAN OF THE BRAIN WITHOUT IV CONTRAST CLINICAL HISTORY: Change in mental status. COMPARISON STUDY: CT of the brain dated 04/28/2022. TECHNIQUE: Unenhanced axial CT scan of the brain is performed from the vertex to the skull base. A dose lowering technique was utilized adhering to the principles of ALARA. CT DOSE: 884.08 mGy.cm FINDINGS: Brain parenchyma: There is age-related involutional change noting moderate subcortical and periventricular microangiopathic disease. There is no hemorrhage, mass effect, or evidence of acute territorial ischemia by CT criteria. Kumar-white matter differentiation is preserved. No extra-axial fluid collection is seen. Ventricles, sulci, cisterns: Prominent secondary to involutional change. Intracranial vasculature: There is atherosclerotic calcification of the cavernous carotid and vertebral arteries. Calvarium: No acute calvarial abnormality is seen. A chronic cortical defect in the right frontal bone is related to remote fracture. This is unchanged from prior examinations. Sinuses and mastoids: There is trace mucosal thickening within the right frontal sinus and the maxillary antra. The mastoid air cells are well pneumatized. Orbits: The bony orbits are grossly intact. There are bilateral ocular lens implants. IMPRESSION: There is no hemorrhage, mass effect, or evidence of acute territorial ischemia by CT criteria. ACT 112: Negative or not required by law. Electronically signed by: Hiram Leal M.D. 07/24/2022 10:02 PM Discharge Plan Visit Data Chief Complaint: Altered Mental Status Stated Complaint: Altered Mental Status, Illness ED Provider: Uri Espino Discharge Problem: COVID-19, CHF (congestive heart failure), Permanent atrial fibrillation, Elevated troponin, CKD (chronic kidney disease) Patient Disposition: Admitted As Inpatient Discharge Instructions Interventions: ED Discharge Assessment Last Done: 07/25/22 02:19
--- NOTE | 2022-07-25 00:33 | History & Physical Report ---
Date of Service July 25, 2022 Assessment & Plan (1) COVID-19: Plan: Patient with Covid-19 infection with hypoxia in ER. Adequate oxygenation on 2L NC now. -Admit to medical -Check Ferritin, CRP, Ddimer -Continue supplemental O2 -Dexamethasone 6mg IV daily -Mucinex, Albuterol, Tylenol PRN -Maintain isolation precautions (2) CHF (congestive heart failure): Plan: Patient with HFrEF. She follows with Heart Failure clinic. Presently appears to be in mild acute decompensation. Administered Bumex 2mg IV in the ER -Continue Bumex 1mg po BID. May need additional IV dosing pending response -Intake and output monitoring -Daily weights -Continue Metoprolol 100mg po qAM -Continue Spironolactone 25mg po BID (3) CAD, multiple vessel: Plan: Elevated troponin presently at 288.8. No acute ischemic changes present on EKG. Possibly in setting of acute decompensated HFrEF. -Telemetry monitoring -Trend Troponin -Continue ASA -Continue Atorvastatin -Continue Lisinopril -Continue Metoprolol (4) Permanent atrial fibrillation: Plan: Rate controlled. 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 Patient is unable to provide history. Details obtained through chart review and discussion with ER staff. In the ER patient is afebrile, HD stable. He is saturating well on 2L of oxygen by NC ER Course: Albuterol Bumex 2mg IV Guaifenesin Dexamethasone 6mg IV Allergies Allergy/AdvReac Type Severity Reaction Status Date / Time No Known Allergies Allergy Verified 07/15/22 08:41 Home Medications Medication Instructions Recorded Confirmed Type aspirin 81 mg tablet,delayed 81 mg PO QAM 06/04/18 07/15/22 History release nitroglycerin 0.4 mg sublingual 0.4 mg sublingual Q5M PRN Chest 02/25/19 07/15/22 History tablet (Nitrostat) Pain cholecalciferol (vitamin D3) 50 4,000 unit PO QAM 04/22/20 07/15/22 History mcg (2,000 unit) capsule blood-glucose meter,continuous #1 ea 11/10/20 06/16/22 History (Dexcom G6 [employer] Stream Coach) blood-glucose sensor (Dexcom G6 #3 ea 11/10/20 06/16/22 History Sensor device) blood-glucose transmitter (Dexcom #1 ea 11/10/20 06/16/22 History G6 Transmitter device) gabapentin 300 mg capsule 600 mg PO BID #360 caps 05/21/21 07/15/22 Rx duloxetine 60 mg capsule,delayed 60 mg PO QAM #90 caps 08/25/21 07/15/22 Rx release metoprolol succinate 100 mg 100 mg PO QAM #90 tabs 08/25/21 07/15/22 Rx tablet,extended release 24 hr montelukast 10 mg tablet 10 mg PO HS #90 tabs 09/10/21 07/15/22 Rx blood sugar diagnostic (FreeStyle 12/01/21 06/16/22 History Lite Strips) fenofibrate 54 mg tablet 54 mg PO HS 01/04/22 07/15/22 History ketoconazole 2 % topical cream 1 applic topical DAILY PRN Rash 01/04/22 07/15/22 History insulin glargine 100 unit/mL 80 unit (0.8 mL) subcut BID high 01/17/22 07/15/22 Rx subcutaneous solution (Lantus blood sugar #150 mL U-100 Insulin) atorvastatin 80 mg tablet 80 mg PO HS #90 tabs 03/19/22 07/15/22 Rx pantoprazole 20 mg tablet,delayed 20 mg PO QAM #90 tabs 03/19/22 07/15/22 Rx release insulin syringe-needle U-100 1 mL #600 ea 04/07/22 07/05/22 Rx 31 gauge x 5/16" (BD Insulin Syringe Ultra-Fine) insulin aspart U-100 100 unit/mL See Rx Instructions .Route 04/19/22 07/15/22 Rx subcutaneous solution (Novolog .COMPLEX #280 mL U-100 Insulin aspart) docusate sodium 100 mg capsule 100 mg PO BID #0 caps 05/02/22 07/15/22 Rx lisinopril 5 mg tablet 2.5 mg PO QAM #90 tabs 05/02/22 07/15/22 Rx sennosides 8.6 mg tablet (Senokot) 17.2 mg PO HS #0 tabs 05/02/22 07/15/22 Rx rivaroxaban 15 mg tablet (Xarelto) 15 mg PO QPM #90 tabs 05/20/22 07/15/22 Rx spironolactone 25 mg tablet 25 mg PO BID #180 tabs 06/07/22 07/15/22 Rx bumetanide 1 mg tablet 2 mg PO BID #360 tabs 07/15/22 Rx Past Med/Surg History Medical History Anxiety Atrial fibrillation Reason for Xarelto Follows with [facility] C4 cervical fracture No surgical intervention. Full ROM. Occurred 2-3 years ago- no current issues CAD (coronary artery disease) S/p RCA PCI in 1991, 1998, and 2004- totaling 5 stents to prox and mid RCA S/p 3 vessel CABG 2008 Cardiomyopathy Carotid artery stenosis, asymptomatic No hemodynamically significant stenosis per 2019 CTA of neck to ICAs bilaterally CHF (congestive heart failure) Chronic kidney disease, stage III (moderate) Depression DM type 2 (diabetes mellitus, type 2) IDDM Dysphagia Occasional (per ) Gastroparesis GERD (gastroesophageal reflux disease) Well controlled and stable Hearing deficit [facility] History of traumatic brain injury 2018 (after fall down stairs) > subdural hematoma resolved without surgical intervention, no residual issues Hyperlipidemia Hypertension ICD (implantable cardioverter-defibrillator) in place [employer]. Implanted ~2017 for sustained VT Insomnia LBBB (left bundle branch block) Chronic dating back to at least 07/2019 EKG per charts PAD (peripheral artery disease) H/o of right SFA/TP trunk/PT angioplasty at [facility] (2011) Peripheral neuropathy Poor historian Sensorineural hearing loss of both ears Situational depression Sleep apnea Refuses device per records Spinal stenosis Subdural hematoma 2018 (after fall down stairs) > subdural hematoma resolved without surgical intervention, no residual issues Venous insufficiency Surgical History History of anesthesia reaction Combative with emergence History of back surgery History of cardiac cath Multiple (hx stents) History of cataract surgery R/L History of cholecystectomy History of colonoscopy History of knee replacement Left Hx of angioplasty Hx of CABG CABG x3 (2008) S/P epidural steroid injection S/P ICD (internal cardiac defibrillator) procedure Family History Daughter Family history of reaction to anesthesia PONV Sister Cancer Father Family history of diabetes mellitus Grandmother (Maternal) Family history of diabetes mellitus Other No significant family history Denies family history of Ovarian cancer Prostate cancer Coronary heart disease Breast cancer Colorectal cancer Social History Smoking Status: Former smoker Tobacco Type: Cigarettes Age Started Using Tobacco: 19; Age Quit Using Tobacco: 49; packs per day: 2; Second Hand Exposure: Yes (SPOUSE SMOKES (OUTSIDE)); Hx Alcohol Use: No Hx Substance Use: No Preferred Language: Croatian Communication Ability: Effective Visual Impairment: Limited Hearing Ability: Hard of Hearing Manager Of Financial Required: No Beliefs That Will Affect Care: None marital status: Current Living Situation: Spouse current occupational status: retired 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 How many Children do You have: 6 Other Information That Helps Us Care for You: No Feels Safe at Home: Yes Safety Concerns: Feels Safe At This Time Childhood Exposure to Second-Hand Smoke: Yes caffeine: No during the past year weight has: remained stable Dental Care, Regularly: Yes Physical Activity Frequency: Does not Exercise Seatbelt Use: never Sunscreen Use: No Assistive Devices: CPAP Review of Systems Review of Systems: Unobtainable due to cognitive status Physical Exam Physical Exam: General: patient resting comfortably, NAD Skin: warm, dry, intact, no rashes or lesions HEENT: NC/AT, PERRL, EOMI, anicteric sclera, conjunctiva without injection, external ear normal to inspection and nontender, nares patent, moist mucus membranes, dentition intact, no oropharyngeal lesions, neck supple, trachea midline, no LAD, no thyromegaly, no JVD Heart: +S1/S2, irregularly irregular, no m/r/g Lungs: equal air entry bilaterally, +crackles in bilateral lung moreira Abd: +BS, soft, NT/ND, no masses/organomegaly/ascites Ext: warm, 2+ pulses in UE/LE bilaterally, no clubbing/cyanosis or edema Neuro: nonfocal Results & Data Results & Data ([facility]) Vital Signs (Past 12 Hours) Vital Signs Pulse Resp BP Pulse Ox O2 Del Method O2 Flow Rate 07/25/22 00:00 71 20 153/66 H 93 Nasal Cannula 4 07/24/22 23:00 80 22 149/76 H 92 Nasal Cannula 4 07/24/22 21:50 86 L Nasal Cannula 4 07/24/22 21:08 87 20 98 Nasal Cannula 4 Laboratory Results Laboratory Results WBC 7.95 K/ul (4.8-10.8) 07/24/22 21:00 RBC 4.36 M/uL (4.63-6.08) L 07/24/22 21:00 Hgb 13.2 g/dl (14.0-18.0) L 07/24/22 21:00 POC Hgb 14.6 g/dl (14.0-18.0) 07/24/22 21:02 Hct 40.4 % (40.1-51.0) 07/24/22 21:00 POC Hct 43 % (42-52) 07/24/22 21:02 MCV 92.7 fL (80.0-100.0) 07/24/22 21:00 MCH 30.3 pg (25.0-34.0) 07/24/22 21:00 MCHC 32.7 g/dL (32.0-36.0) 07/24/22 21:00 RDW Std Deviation 50.9 fL (36.4-46.3) H 07/24/22 21:00 RDW Coeff of Paulo 14.8 % (11.5-14.5) H 07/24/22 21:00 Plt Count 318 K/uL (130-400) 07/24/22 21:00 MPV 10.8 fL (9.4-12.4) 07/24/22 21:00 Immature Gran % (Auto) 0.4 % 07/24/22 21:00 Neut % (Auto) 69.7 % 07/24/22 21:00 Lymph % (Auto) 8.9 % 07/24/22 21:00 [place] % (Auto) 20.6 % 07/24/22 21:00 Eos % (Auto) 0.0 % 07/24/22 21:00 Baso % (Auto) 0.4 % 07/24/22 21:00 Neut # (Auto) 5.54 K/uL (1.4-6.5) 07/24/22 21:00 Lymph # (Auto) 0.71 K/uL (1.2-3.4) L 07/24/22 21:00 [place] # (Auto) 1.64 K/uL (0.24-0.82) H 07/24/22 21:00 Eos # (Auto) 0.00 K/uL (0-0.50) 07/24/22 21:00 Baso # (Auto) 0.03 K/uL (0-0.2) 07/24/22 21:00 Immature Gran # (Auto) 0.03 K/uL (0.00-0.02) H 07/24/22 21:00 PT 11.9 Seconds (9.0-12.0) 07/24/22 21:39 INR 1.1 (0.9-1.1) 07/24/22 21:39 VBG pH 7.48 (7.36-7.41) H 07/24/22 21:39 VBG pCO2 57 mmHg (38-50) H 07/24/22 21:39 VBG pO2 23 mmHg 07/24/22 21:39 VBG HCO3 42 mmol/L 07/24/22 21:39 VBG O2 Saturation < 60.0 % 07/24/22 21:39 VBG Base Excess 16.0 mEq/L 07/24/22 21:39 POC Sodium 132 mmol/L (135-144) L 07/24/22 21:02 Sodium 132 mmol/L (136-145) L 07/24/22 21:00 POC Potassium 3.4 mmol/L (3.3-5.0) 07/24/22 21:02 Potassium 3.5 mmol/L (3.5-5.1) 07/24/22 21:00 POC Chloride 84 mmol/L (101-112) L 07/24/22 21:02 Chloride 85 mmol/L (98-107) L 07/24/22 21:00 Carbon Dioxide 41 mmol/L (21-32) H* 07/24/22 21:00 POC Total CO2 38 mmol/L (24-31) H 07/24/22 21:02 Anion Gap 6 (3-11) 07/24/22 21:00 POC Anion Gap 14.0 mmol/L (16-25) L 07/24/22 21:02 POC BUN 40 mg/dl (7-18) H 07/24/22 21:02 BUN 42 mg/dl (6-23) H 07/24/22 21:00 Creatinine 1.81 mg/dl (0.6-1.4) H 07/24/22 21:00 POC Creatinine 2.0 mg/dl (0.6-1.3) H 07/24/22 21:02 Est Cr Clr Drug Dosing Not Reportable 07/24/22 21:00 Est GFR ( Amer) 39.5 ml/min 07/24/22 21:00 Est GFR (Non-Af Amer) 34.1 ml/min 07/24/22 21:00 BUN/Creatinine Ratio 23.2 (10-20) H 07/24/22 21:00 Glucose 199 mg/dl (70-99(Fasting)) H 07/24/22 21:00 POC Glucose (other) 201 mg/dl (70-99) H 07/24/22 21:02 Calcium 9.6 mg/dl (8.5-10.1) 07/24/22 21:00 POC Ioniz Calcium Yarely 1.00 mmol/l (1.12-1.32) L 07/24/22 21:02 Phosphorus 3.3 mg/dl (2.5-4.9) 07/24/22 21:00 Magnesium 2.0 mg/dl (1.7-2.4) 07/24/22 21:00 Total Bilirubin 1.3 mg/dl (0.2-1.0) H 07/24/22 21:00 AST 24 U/L (13-39) 07/24/22 21:00 ALT 9 U/L (7-52) 07/24/22 21:00 Alkaline Phosphatase 63 U/L (34-104) 07/24/22 21:00 Troponin I High Sens 288.8 pg/ml (0-20) H* 07/24/22 21:00 B-Natriuretic Peptide 237 pg/ml (0-100) H 07/24/22 21:20 Total Protein 7.5 gm/dl (6.0-8.3) 07/24/22 21:00 Albumin 3.9 gm/dl (3.4-5.0) 07/24/22 21:00 Globulin 3.6 gm/dl (2.5-4.0) 07/24/22 21:00 Albumin/Globulin Ratio 1.1 (0.9-2) 07/24/22 21:00 Lipase 11 U/L (11-82) 07/24/22 21:00 Urine Color Yellow 07/25/22 00:25 Urine Appearance Clear (Clear) 07/25/22 00:25 Urine pH 7.0 (4.5-7.5) 07/25/22 00:25 Ur Specific [place] 1.016 (1.000-1.030) 07/25/22 00:25 Urine Protein 2+ (Negative) H 07/25/22 00:25 Urine Glucose (UA) Trace (Negative) H 07/25/22 00:25 Urine Ketones Trace (Negative) H 07/25/22 00:25 Urine Blood Negative (Negative) 07/25/22 00:25 Urine Nitrite Negative (Negative) 07/25/22 00:25 Urine Bilirubin Negative (Negative) 07/25/22 00:25 Urine Urobilinogen Negative (Negative) 07/25/22 00:25 Ur Leukocyte Esterase Trace (Negative) H 07/25/22 00:25 Urine WBC (Auto) 1-5 /hpf (0-5) 07/25/22 00:25 Urine RBC (Auto) 0-4 /hpf (0-4) 07/25/22 00:25 U Hyaline Cast (Auto) 1-5 /lpf (0-5) 07/25/22 00:25 U Epithel Cells (Auto) 10-20 /lpf (0-5) H 07/25/22 00:25 Urine Bacteria (Auto) Negative (Negative) 07/25/22 00:25 SARS-CoV-2 (PCR) POSITIVE (Negative) A* 07/24/22 21:44 Influenza Type A (PCR) Negative (Neg) 07/24/22 21:44 Influenza Type B (PCR) Negative (Neg) 07/24/22 21:44 RSV (RT-PCR) Negative (Neg) 07/24/22 21:44 Impressions Chest X-Ray 07/24/22 21:08 SINGLE VIEW CHEST CLINICAL HISTORY: Dyspnea. FINDINGS: 2 AP, portable, upright chest radiographs are compared to study dated 05/01/2022 and correlated with chest CT dated 12/08/2020 . The examination is degr aded by portable technique and patient rotation. The patient is status post midline sternotomy. A single lead cardiac AICD is unchanged in position and partially obscures the left mid chest. The heart is enlarged noting atherosclerotic calcification of the thoracic aorta. There is pulmonary vascular congestion. Bilateral airspace opacities likely represent interstitial edema. Small pleural effusions are noted. No pneumothorax is seen. The skeletal structures are osteopenic. The bony thorax is grossly intact. Arthritic change is seen in the shoulders. IMPRESSION: 1. Cardiomegaly and AICD with evidence of congestive failure. 2. Bilateral airspace opacities likely represent pulmonary edema. Correlate clinically for evidence of a superimposed infectious/inflammatory pneumonitis. Radiographic follow-up to resolution is recommended. 3. Small pleural effusions. ACT 112: Negative or not required by law. Electronically signed by: Hiram Leal M.D. 07/24/2022 10:[address] 07/24/22 21:08 CT SCAN OF THE BRAIN WITHOUT IV CONTRAST CLINICAL HISTORY: Change in mental status. COMPARISON STUDY: CT of the brain dated 04/28/2022. TECHNIQUE: Unenhanced axial CT scan of the brain is performed from the vertex to the skull base. A dose lowering technique was utilized adhering to the principles of ALARA. CT DOSE: 884.08 mGy.cm FINDINGS: Brain parenchyma: There is age-related involutional change noting moderate subcortical and periventricular microangiopathic disease. There is no hemorrhage, mass effect, or evidence of acute territorial ischemia by CT criteria. Kumar-white matter differentiation is preserved. No extra-axial fluid collection is seen. Ventricles, sulci, cisterns: Prominent secondary to involutional change. Intracranial vasculature: There is atherosclerotic calcification of the cavernous carotid and vertebral arteries. Calvarium: No acute calvarial abnormality is seen. A chronic cortical defect in the right frontal bone is related to remote fracture. This is unchanged from prior examinations. Sinuses and mastoids: There is trace mucosal thickening within the right frontal sinus and the maxillary antra. The mastoid air cells are well pneumatized. Orbits: The bony orbits are grossly intact. There are bilateral ocular lens implants. IMPRESSION: There is no hemorrhage, mass effect, or evidence of acute territorial ischemia by CT criteria. ACT 112: Negative or not required by law. Electronically signed by: Hiram Leal M.D. 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
[2022-07-25 00:43] LABS: Appearance Urine Clear (Clear); Bacteria Urine Automated Negative (Negative); Bilirubin Urine Negative (Negative); Blood Urine Negative (Negative); Color Urine Yellow; Glucose Urine UA Trace (Negative); Ketones Urine Trace (Negative); Leukocyte Esterase Urine Trace (Negative); Nitrite Urine Negative (Negative); Protein Urine 2+ (Negative); RBC Urine Automated 0-4 /hpf (0-4); Specific Gravity Urine 1.016 (1.000-1.030); Urobilinogen Urine Negative (Negative)
[2022-07-25] MEDS ORDERED: GLUCOSE 10 TAB/TUBE PO PRN (02:49)
[2022-07-25] MEDS ORDERED: DEXTROSE 50% 50 ML SYRINGE IV PRN (02:49)
[2022-07-25] MEDS ORDERED: GLUCAGON FOR INJ 1 MG VIAL SQ PRN (02:49)
[2022-07-25] MEDS ORDERED: PHARMACY GLYCEMIC MGMT CONSULT PRN (02:49)
[2022-07-25] MEDS ORDERED: GLUCOSE 40% GEL 15 GM TUBE PO PRN (02:49)
[2022-07-25] MEDS ORDERED: ALBUTEROL HFA 8 GM INHALER INH PRN (02:49)
[2022-07-25] MEDS ORDERED: LANTUS PER UNIT CHARGE SQ ONE (03:15)
[2022-07-25] MEDS: INSULIN ASPART PER UNIT SC SCH ×5 (03:39→22:25)
[2022-07-25 07:51] LABS: Troponin I High Sensitivity 288.8 pg/ml (0-20)
[2022-07-25 08:18] LABS: C Reactive Protein 7.51 mg/dl (0-0.5)
--- NOTE | 2022-07-25 08:22 | Pharmacy Report ---
Pharmacy Glycemic Short Note 2 - Date of Service July 25, 2022 - Glycemic Short BSG Results (Last 24 hours): 07/24/22 07/24/22 07/25/22 21:00 21:02 03:32 Glucose 199 H POC Glucose 216 H POC Glucose (other) 201 H 07/25/22 07:42 Glucose POC Glucose 266 H POC Glucose (other) OUTPATIENT ANTIDIABETIC REGIMEN: * Lantus 80 units bid, novolog 65 units QID + SSI ASSESSMENT: * 81 year old admitted with increasing shortness of breath, COVID, confusion. PMHx significant for type 2 diabetes, CAD, CHF, CKD III * Patient received dose of dexamethasone 6 mg IV last evening - BSG at HS last night 201, unclear if patient did take Lantus last evening before coming into hospital therefore a dose of Lantus 30 units given overnight * Fasting BSG this morning 266 mg/dL - patient previously admitted and had been followed by glycemic service. Had been receiving ~40 units of basal/day and BSGs stable - will trial Lantus 20 units bid for this morning * Continues with dexamethasone 6 mg iv daily - will add NPH ~0.4 unit/kg daily to help provide coverage with steroids. PLAN FOR INPATIENT GLYCEMIC CONTROL: * Hold outpatient oral diabetes medications * Basal insulin * Lantus 20 units bid * NPH 40 units daily - with daily IV dexamethasone * Bolus insulin * NovoLog per scale ACHS or Q6hrs while NPO * Goal Range: Low 110 mg/dL - High 140 mg/dL * Correction Factor: 10 mg/dL/unit * Nutritional / Prandial insulin per carb ratio of 1 unit per 4 grams CHO consumed
[2022-07-25 08:33] LABS: Troponin I High Sensitivity 154.6 pg/ml (0-20)
[2022-07-25 08:37] LABS: Ferritin 105.7 ng/ml (8-388)
[2022-07-25] MEDS ORDERED: PANTOprazole 40 MG TAB PO SCH (09:00)
[2022-07-25] MEDS: LANTUS PER UNIT CHARGE SQ SCH ×2 (09:32→20:04)
[2022-07-25] MEDS: INSULIN HUMAN NPH SC SCH (09:32)
[2022-07-25] MEDS: ASPIRIN 81 MG ECTAB PO SCH (09:36)
[2022-07-25] MEDS: lisinopril 2.5 MG TAB PO SCH (09:36)
[2022-07-25] MEDS: METOPROLOL SUCC 50MG EXT REL TAB PO SCH (09:36)
[2022-07-25] MEDS: BUMETANIDE 1 MG TAB PO SCH ×2 (09:36→20:22)
[2022-07-25] MEDS: GABAPENTIN 300 MG CAP PO SCH ×2 (09:36→20:21)
[2022-07-25] MEDS: DULoxetine HCL 60 MG CAP PO SCH (09:36)
[2022-07-25] MEDS: PANTOprazole 40 MG TAB PO SCH (09:37)
[2022-07-25] MEDS: DOCUSATE SODIUM 100 MG CAP PO SCH ×2 (09:37→20:22)
[2022-07-25] MEDS: SPIRONOLACTONE 25 MG TAB PO SCH ×2 (09:37→20:21)
[2022-07-25] MEDS: guaiFENesin 600 MG TABCR PO SCH ×2 (09:37→20:21)
[2022-07-25] MEDS: dexAMETHasone 6 MG in SYRINGE 0 ML IV SCH (09:38)
[2022-07-25 09:43] LABS: D Dimer 630 ug/L FEU (0-500)
[2022-07-25] MEDS ORDERED: POTASSIUM CHLORIDE CRTAB 20 MEQ TABCR PO STA (11:22)
[2022-07-25] MEDS ORDERED: INSULIN HUMAN REGULAR PER UNIT 5 UNITS in SYRINGE 4.95 ML IV ONE (12:15)
[2022-07-25] MEDS: ACETAMINOPHEN 325 MG TAB PO PRN (13:40)
--- NOTE | 2022-07-25 14:34 | Hospitalist Progress Note ---
Date of Service July 25, 2022 Assessment & Plan (1) COVID-19: Plan: Patient with Covid-19 infection with hypoxia in ER. -Deemed not a candidate for Remdesivir -Continue supplemental O2 -Dexamethasone 6mg IV daily -Mucinex, Albuterol, Tylenol PRN -Maintain isolation precautions (2) CHF (congestive heart failure): Plan: Patient with HFrEF. follows with Heart Failure clinic. - Presently appears to be in mild acute decompensation. - Administered Bumex 2mg IV in the ER -Continue Bumex 1mg po BID. -Intake and output monitoring -Daily weights -Continue Metoprolol 100mg po qAM -Continue Spironolactone 25mg po BID (3) CAD, multiple vessel: Plan: Elevated troponin presently at 288.8. No acute ischemic changes present on EKG. Possibly in setting of acute decompensated HFrEF. -Telemetry monitoring -Trend Troponin -Continue ASA -Continue Atorvastatin -Continue Lisinopril -Continue Metoprolol (4) Permanent atrial fibrillation: Plan: Rate controlled. 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, with long- term current use of insulin: Plan: -Duloxetine -Gabapentin 600mg po BID -Lisinopril 2.5mg -Pharmacy glycemic management consultation appreciated (7) Dyslipidemia: Plan: Chronic -Continue Atorvastatin (8) Hypertension: Plan: Blood pressure adequately controlled -Continue home medication -Monitor BP (9) Elevated troponin: Plan: Probably demand ischemia No ekg changes, no chest pain trend trops (10) Atrial fibrillation: Plan: rate under good control continue home meds of Metoprolol and Rivaroxaban (11) Encephalopathy: Plan: suspected Metabolic encephalopathy CT head did not show any acute pathology patient back to baseline Plan continue hospitalization Admission and Anticipated Discharge Date Admission Date: July 25, 2022 Results & Data Results & Data ([facility]) Vital Signs (Past 12 Hours) Vital Signs Temp Pulse Pulse Resp BP Pulse Ox O2 Del Method 07/25/22 11:07 97.5 F L 76 19 156/85 H 92 Nasal Cannula 07/25/22 07:48 97.5 F L 84 19 163/68 H 94 Nasal Cannula 07/25/22 07:20 81 07/25/22 02:49 97.9 F 77 16 134/53 L 96 Nasal Cannula 07/25/22 03:21 Nasal Cannula 07/25/22 03:00 97.9 F 76 16 134/53 L 95 Nasal Cannula O2 Flow Rate 07/25/22 11:07 2.0 07/25/22 07:48 2.0 07/25/22 07:20 07/25/22 02:49 2 07/25/22 03:21 2 07/25/22 03:00 2 PG Care Time/CCT Total # of Minutes Spent Total Time Spent with Patient: Total time spent is greater than 50% in coordination of care (as documented) at patient's floor/unit and/or counseling patient: Coding Level of Care Code 08294 SUB INP/OBS CARE 2/35MIN Diagnoses COVID-19 U07.1 CHF (congestive heart failure) I50.9 Heart failure type: combined systolic and diastolic CAD, multiple vessel I25.10 Permanent atrial fibrillation I48.2 Chronic kidney disease, stage III (moderate) N18.3 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, with long-term current use of insulin E11.29; E11.65; Z79.4 Dyslipidemia E78.5 Hypertension I10 Hypertension type: essential hypertension Elevated troponin R77.8 Atrial fibrillation I48.11 Atrial fibrillation type: longstanding persistent Encephalopathy G93.40 Time Spent (min) 35 (1) CHF (congestive heart failure) Heart failure type: combined systolic and diastolic (2) Hypertension Hypertension type: essential hypertension Qualified Code(s): I10 - Essential (primary) hypertension (3) Atrial fibrillation Atrial fibrillation type: longstanding persistent Qualified Code(s): I48.11 - Longstanding persistent atrial fibrillation
[2022-07-25] MEDS: SENNA 8.6 MG TAB PO SCH (20:21)
[2022-07-25] MEDS: RIVAROXABAN 15 MG TAB PO SCH (20:21)
[2022-07-25] MEDS: ATORVASTATIN 40 MG TAB PO SCH (20:22)
[2022-07-25] MEDS: MONTELUKAST SODIUM 10 MG TABLET PO SCH (20:22)
--- NOTE | 2022-07-25 21:51 | Electrocardiogram Report ---
Test Reason : Blood Pressure : / mmHG Vent. Rate : 080 BPM Atrial Rate : 394 BPM P-R Int : 000 ms QRS Dur : 188 ms QT Int : 466 ms P-R-T Axes : 000 -45 108 degrees QTc Int : 537 ms Atrial fibrillation with premature ventricular or aberrantly conducted complexes Left axis deviation Left bundle branch block Abnormal ECG When compared with ECG of 02-MAY-2022 15:28, No significant change was found Confirmed by Buster Doran ([id number]) on 07/25/2022 9:51:21 PM Referred By: REFERRED SELF Confirmed By:Buster Doran
--- NOTE | 2022-07-25 21:52 | Electrocardiogram Report ---
Test Reason : Blood Pressure : / mmHG Vent. Rate : 079 BPM Atrial Rate : 000 BPM P-R Int : 000 ms QRS Dur : 182 ms QT Int : 468 ms P-R-T Axes : 000 -42 092 degrees QTc Int : 536 ms Atrial fibrillation with frequent Premature ventricular complexes Left axis deviation Left bundle branch block Abnormal ECG When compared with ECG of 24-JUL-2022 20:56, No significant change Confirmed by Buster Doran ([id number]) on 07/25/2022 9:52:48 PM Referred By: REFERRED SELF Confirmed By:Buster Doran
[2022-07-26] MEDS: INSULIN ASPART PER UNIT SC SCH ×6 (00:54→21:08)
--- NOTE | 2022-07-26 07:38 | Pharmacy Report ---
Pharmacy Glycemic Short Note 2 - Date of Service July 26, 2022 - Glycemic Short BSG Results (Last 24 hours): 07/25/22 07/25/22 07/25/22 07:42 11:02 11:03 POC Glucose 266 H 328 H* 341 H* 07/25/22 07/25/22 07/25/22 12:02 16:07 19:42 POC Glucose 288 H 173 H 132 H 07/26/22 07/26/22 07/26/22 00:41 03:47 06:59 POC Glucose 157 H 128 H 129 H OUTPATIENT ANTIDIABETIC REGIMEN: * Lantus 80 units bid, novolog 65 units QID + SSI ASSESSMENT: 07/26 * Patient received total of 178 units total of insulin yesterday, of which 70 units were basal and 40 units NPH to help cover steroids * Fasting BSG 129 mg/dL - only requiring 3 units of correctional insulin overnight. Unclear if basal insulin taken 07/24 PM - may scale back slightly on Lantus and target 40-50 units total per day. This dosing is consistent with other admissions * Will continue same NPH for today and trend BSGs 07/25 * 81 year old admitted with increasing shortness of breath, COVID, confusion. PMHx significant for type 2 diabetes, CAD, CHF, CKD III * Patient received dose of dexamethasone 6 mg IV last evening - BSG at HS last night 201, unclear if patient did take Lantus last evening before coming into hospital therefore a dose of Lantus 30 units given overnight * Fasting BSG this morning 266 mg/dL - patient previously admitted and had been followed by glycemic service. Had been receiving ~40 units of basal/day and BSGs stable - will trial Lantus 20 units bid for this morning * Continues with dexamethasone 6 mg iv daily - will add NPH ~0.4 unit/kg daily to help provide coverage with steroids. PLAN FOR INPATIENT GLYCEMIC CONTROL: * Hold outpatient oral diabetes medications * Basal insulin * Lantus 30 units Qam, Lantus 10-20 units HS * NPH 40 units daily - with daily IV dexamethasone * Bolus insulin * NovoLog per scale ACHS or Q6hrs while NPO * Goal Range: Low 110 mg/dL - High 140 mg/dL * Correction Factor: 7 mg/dL/unit * Nutritional / Prandial insulin per carb ratio of 1 unit per 4 grams CHO consumed
[2022-07-26 08:10] LABS: Hematocrit (blood only) 42.7 % (40.1-51.0); Hemoglobin 14.4 g/dl (14.0-18.0); Mean Corpuscular Hemoglobin 30.4 pg (25.0-34.0); Mean Corpuscular Hgb Conc 33.7 g/dL (32.0-36.0); Mean Corpuscular Volume 90.1 fL (80.0-100.0); Mean Platelet Volume 10.2 fL (9.4-12.4); Platelet Count 286 K/uL (130-400); RDW Coefficient of Variation 14.6 % (11.5-14.5); RDW Standard Deviation 47.8 fL (36.4-46.3); Red Blood Count 4.74 M/uL (4.63-6.08); White Blood Count 5.91 K/ul (4.8-10.8)
[2022-07-26 08:32] LABS: Albumin Level 3.3 gm/dl (3.4-5.0); BUN Creatinine Ratio 31.4 (10-20); Bilirubin Direct 0.2 mg/dl (0-0.2); Bilirubin,Total 0.8 mg/dl (0.2-1.0); Calcium 9.1 mg/dl (8.5-10.1); Creatinine Clr Calc Pharmacy 45.8 ml/min; Est GFR (African American) 47.2 ml/min; Est GFR (Non-African American) 40.8 ml/min; Potassium 3.2 mmol/L (3.5-5.1); Total Protein 6.7 gm/dl (6.0-8.3)
[2022-07-26] MEDS: LANTUS PER UNIT CHARGE SQ SCH (08:37)
[2022-07-26] MEDS: dexAMETHasone 6 MG in SYRINGE 0 ML IV SCH (08:38)
[2022-07-26] MEDS: INSULIN HUMAN NPH SC SCH (08:38)
[2022-07-26] MEDS: BUMETANIDE 1 MG TAB PO SCH ×2 (08:48→21:17)
[2022-07-26] MEDS: ASPIRIN 81 MG ECTAB PO SCH (08:48)
[2022-07-26] MEDS: guaiFENesin 600 MG TABCR PO SCH ×2 (08:49→21:16)
[2022-07-26] MEDS: GABAPENTIN 300 MG CAP PO SCH ×2 (08:49→21:17)
[2022-07-26] MEDS: DULoxetine HCL 60 MG CAP PO SCH (08:49)
[2022-07-26] MEDS: DOCUSATE SODIUM 100 MG CAP PO SCH ×2 (08:49→21:17)
[2022-07-26] MEDS: lisinopril 2.5 MG TAB PO SCH (08:50)
[2022-07-26] MEDS: PANTOprazole 40 MG TAB PO SCH (08:50)
[2022-07-26] MEDS: METOPROLOL SUCC 50MG EXT REL TAB PO SCH (08:50)
[2022-07-26] MEDS: SPIRONOLACTONE 25 MG TAB PO SCH ×2 (08:51→21:18)
[2022-07-26] MEDS ORDERED: POTASSIUM CHLORIDE CRTAB 20 MEQ TABCR PO STA (10:10)
[2022-07-26] MEDS: POLYETHYLENE (MIRALAX) 17 GM PACK PO SCH (10:58)
--- NOTE | 2022-07-26 14:12 | Hospitalist Progress Note ---
Date of Service July 26, 2022 Assessment & Plan (1) COVID-19: Plan: Patient with Covid-19 infection with hypoxia in ER. -Deemed not a candidate for Remdesivir -Continue supplemental O2 -Dexamethasone 6mg IV daily -Mucinex, Albuterol, Tylenol PRN -Maintain isolation precautions (2) CHF (congestive heart failure): Plan: Patient with HFrEF. follows with Heart Failure clinic. - Presently appears to be in mild acute decompensation. - Administered Bumex 2mg IV in the ER -Continue Bumex 1mg po BID. -Intake and output monitoring -Daily weights -Continue Metoprolol 100mg po qAM -Continue Spironolactone 25mg po BID (3) CAD, multiple vessel: Plan: Elevated troponin, 288.8 on admission. -Most likley type 2 [place] from demand ischemia - No acute ischemic changes present on EKG. - Possibly in setting of acute decompensated HFrEF. -Telemetry monitoring -Trend Troponin -Continue ASA -Continue Atorvastatin -Continue Lisinopril -Continue Metoprolol (4) Permanent atrial fibrillation: Plan: Rate controlled. 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, with long- term current use of insulin: Plan: -Duloxetine -Gabapentin 600mg po BID -Lisinopril 2.5mg -Pharmacy glycemic management consultation appreciated (7) Dyslipidemia: Plan: Chronic -Continue Atorvastatin (8) Hypertension: Plan: Blood pressure adequately controlled -Continue home medication -Monitor BP (9) Elevated troponin: Plan: Probably demand ischemia No ekg changes, no chest pain trend trops (10) Atrial fibrillation: Plan: rate under good control continue home meds of Metoprolol and Rivaroxaban (11) Encephalopathy: Plan: suspected Metabolic encephalopathy CT head did not show any acute pathology patient back to baseline Plan continue hospitalization. and daughter say patient needs placement, they are unable to take care of him at home. Patient is looking foward to going home. Will make arrangements for him to go to SNF Admission and Anticipated Discharge Date Admission Date: July 25, 2022 Subjective patient seen and examined, says he feels better. Looking foward to going home, although and daughter say they are unable to take care of him Review of Systems Review of Systems: All systems reviewed are negative, apart from the ones contained in the history. Physical Exam Physical Exam: The patient is awake, alert and oriented 3, well developed and well nourished, normocephalic and atraumatic, lying in bed and in no acute distress. HEENT--PERRL, EOMI, mucous membranes and oropharynx mildly dry Neck--supple. No JVD. No bruits. Thyroid normal, trachea midline, no adenopathy. Heart--normal S1 and S2. No murmurs, rubs or gallops. Lungs--clear bilaterally, no respiratory distress, no accessory muscle use. Abdomen--normal bowel sounds and soft. Mild epigastric and left sided abdominal pain Extremities--no cyanosis or clubbing. No edema. Dermatologic--normal skin turgor, normal color, no abnormal lymph nodes, no rash. Neurologic--cranial nerves II through XII grossly intact. Rheumatologic--normal range of motion. Psychiatric--normal affect. Results & Data Results & Data ([facility]) Vital Signs (Past 12 Hours) Vital Signs Temp Pulse Pulse Pulse Resp BP Pulse Ox 07/26/22 10:50 97.9 F 79 18 112/63 97 07/26/22 10:06 07/26/22 07:00 63 07/26/22 07:50 70 112/60 07/26/22 06:47 97.5 F L 72 18 88/54 L 94 07/26/22 02:42 97.5 F L 74 18 121/45 L 97 O2 Del Method O2 Flow Rate 07/26/22 10:50 Nasal Cannula 2 07/26/22 10:06 Nasal Cannula 2 07/26/22 07:00 07/26/22 07:50 07/26/22 06:47 Nasal Cannula 2 07/26/22 02:42 Nasal Cannula 2 PG Care Time/CCT Total # of Minutes Spent Total Time Spent with Patient: Total time spent is greater than 50% in coordination of care (as documented) at patient's floor/unit and/or counseling patient: Coding Level of Care Code 86816 SUB INP/OBS CARE 2/35MIN Diagnoses COVID-19 U07.1 CHF (congestive heart failure) I50.9 Heart failure type: combined systolic and diastolic CAD, multiple vessel I25.10 Permanent atrial fibrillation I48.2 Chronic kidney disease, stage III (moderate) N18.3 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, with long-term current use of insulin E11.29; E11.65; Z79.4 Dyslipidemia E78.5 Hypertension I10 Hypertension type: essential hypertension Elevated troponin R77.8 Atrial fibrillation I48.11 Atrial fibrillation type: longstanding persistent Encephalopathy G93.40 Time Spent (min) 35 (1) CHF (congestive heart failure) Heart failure type: combined systolic and diastolic (2) Hypertension Hypertension type: essential hypertension Qualified Code(s): I10 - Essential (primary) hypertension (3) Atrial fibrillation Atrial fibrillation type: longstanding persistent Qualified Code(s): I48.11 - Longstanding persistent atrial fibrillation
[2022-07-26] MEDS ORDERED: LANTUS PER UNIT CHARGE SQ SCH (21:00)
[2022-07-26] MEDS: MONTELUKAST SODIUM 10 MG TABLET PO SCH (21:18)
[2022-07-26] MEDS: RIVAROXABAN 15 MG TAB PO SCH (21:18)
[2022-07-26] MEDS: SENNA 8.6 MG TAB PO SCH (21:23)
[2022-07-26] MEDS: ATORVASTATIN 40 MG TAB PO SCH (21:31)
[2022-07-27] MEDS: DOCUSATE SODIUM 100 MG CAP PO SCH ×2 (08:40→20:05)
[2022-07-27] MEDS: BUMETANIDE 1 MG TAB PO SCH ×2 (08:40→20:05)
[2022-07-27] MEDS: ASPIRIN 81 MG ECTAB PO SCH (08:40)
[2022-07-27] MEDS: GABAPENTIN 300 MG CAP PO SCH ×2 (08:41→20:06)
[2022-07-27] MEDS: guaiFENesin 600 MG TABCR PO SCH ×2 (08:41→20:06)
[2022-07-27] MEDS: DULoxetine HCL 60 MG CAP PO SCH (08:41)
[2022-07-27] MEDS: PANTOprazole 40 MG TAB PO SCH (08:42)
[2022-07-27] MEDS: POLYETHYLENE (MIRALAX) 17 GM PACK PO SCH (08:42)
[2022-07-27] MEDS: lisinopril 2.5 MG TAB PO SCH (08:42)
[2022-07-27] MEDS: METOPROLOL SUCC 50MG EXT REL TAB PO SCH (08:42)
[2022-07-27] MEDS: SPIRONOLACTONE 25 MG TAB PO SCH ×2 (08:43→20:07)
--- NOTE | 2022-07-27 08:59 | Pharmacy Report ---
Pharmacy Glycemic Short Note 2 - Date of Service July 27, 2022 - Glycemic Short BSG Results (Last 24 hours): 07/26/22 07/26/22 07/26/22 11:01 16:39 20:45 POC Glucose 153 H 92 127 H 07/27/22 07:35 POC Glucose 92 OUTPATIENT ANTIDIABETIC REGIMEN: * Lantus 80 units bid, novolog 65 units QID + SSI ASSESSMENT: 07/27 * Patient received total of 99 units of insulin yesterday, of which 40 units wer e basal and 40 units NPH to help cover steroids * Fasting BSG 92 mg/dL - Fasting BSG trending down, may have scale for HS time to provide slight decrease * BSGs trending down at dinner yesterday and much improved from day prior. Plan to scale back on daily NPH since seeing improvement now, will decrease to 30 units NPH today * May consider loosening novolog parameters if we see blood sugars trending down today 07/26 * Patient received total of 178 units total of insulin yesterday, of which 70 units were basal and 40 units NPH to help cover steroids * Fasting BSG 129 mg/dL - only requiring 3 units of correctional insulin overnight. Unclear if basal insulin taken 1/15 PM - may scale back slightly on Lantus and target 40-50 units total per day. This dosing is consistent with other admissions * Will continue same NPH for today and trend BSGs 07/25 * 81 year old admitted with increasing shortness of breath, COVID, confusion. PMHx significant for type 2 diabetes, CAD, CHF, CKD III * Patient received dose of dexamethasone 6 mg IV last evening - BSG at HS last night 201, unclear if patient did take Lantus last evening before coming into hospital therefore a dose of Lantus 30 units given overnight * Fasting BSG this morning 266 mg/dL - patient previously admitted and had been followed by glycemic service. Had been receiving ~40 units of basal/day and BSGs stable - will trial Lantus 20 units bid for this morning * Continues with dexamethasone 6 mg iv daily - will add NPH ~0.4 unit/kg daily to help provide coverage with steroids. PLAN FOR INPATIENT GLYCEMIC CONTROL: * Hold outpatient oral diabetes medications * Basal insulin * Lantus 30 units Qam, Lantus 0-10 units HS * NPH 30 units daily - with daily IV dexamethasone * Bolus insulin * NovoLog per scale ACHS or Q6hrs while NPO * Goal Range: Low 110 mg/dL - High 140 mg/dL * Correction Factor: 7 mg/dL/unit * Nutritional / Prandial insulin per carb ratio of 1 unit per 4 grams CHO consumed
[2022-07-27] MEDS ORDERED: INSULIN HUMAN NPH SC SCH (09:00)
[2022-07-27] MEDS: INSULIN ASPART PER UNIT SC SCH ×4 (09:13→22:07)
[2022-07-27] MEDS: LANTUS PER UNIT CHARGE SQ SCH (09:14)
[2022-07-27] MEDS: dexAMETHasone 6 MG in SYRINGE 0 ML IV SCH (09:14)
--- NOTE | 2022-07-27 11:45 | Hospitalist Progress Note ---
Date of Service July 27, 2022 Assessment & Plan (1) COVID-19: Plan: Patient with Covid-19 infection with hypoxia in ER. -Deemed not a candidate for Remdesivir -Continue supplemental O2 -Dexamethasone 6mg IV daily -Mucinex, Albuterol, Tylenol PRN -Maintain isolation precautions (2) CHF (congestive heart failure): Plan: Patient with HFrEF. follows with Heart Failure clinic. - Some improvement in SOB -Continue Bumex 1mg po BID. -Intake and output monitoring -Daily weights -Continue Metoprolol 100mg po qAM -Continue Spironolactone 25mg po BID (3) CAD, multiple vessel: Plan: Elevated troponin, 288.8 on admission. -Most likley type 2 [place] from demand ischemia - No acute ischemic changes present on EKG. - Possibly in setting of acute decompensated HFrEF. -Telemetry monitoring -Trend Troponin -Continue ASA -Continue Atorvastatin -Continue Lisinopril -Continue Metoprolol (4) Permanent atrial fibrillation: Plan: Rate controlled. 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, with long- term current use of insulin: Plan: -Duloxetine -Gabapentin 600mg po BID -Lisinopril 2.5mg -Pharmacy glycemic management consultation appreciated (7) Dyslipidemia: Plan: Chronic -Continue Atorvastatin (8) Hypertension: Plan: Blood pressure adequately controlled -Continue home medication -Monitor BP (9) Elevated troponin: Plan: Probably demand ischemia No ekg changes, no chest pain trend trops (10) Atrial fibrillation: Plan: rate under good control continue home meds of Metoprolol and Rivaroxaban (11) Encephalopathy: Plan: suspected Metabolic encephalopathy CT head did not show any acute pathology patient back to baseline Plan continue hospitalization. and daughter say patient needs placement, they are unable to take care of him at home. Patient is looking foward to going home. Will make arrangements for him to go to SNF, they want center care Admission and Anticipated Discharge Date Admission Date: July 25, 2022 Subjective patient seen and examined, says he feels better. Looking foward to going home, although and daughter say they are unable to take care of him, plan is for center care Review of Systems Review of Systems: All systems reviewed are negative, apart from the ones contained in the history. Physical Exam Physical Exam: The patient is awake, alert and oriented 3, well developed and well nourished, normocephalic and atraumatic, lying in bed and in no acute distress. HEENT--PERRL, EOMI, mucous membranes and oropharynx mildly dry Neck--supple. No JVD. No bruits. Thyroid normal, trachea midline, no adenopathy. Heart--normal S1 and S2. No murmurs, rubs or gallops. Lungs--clear bilaterally, no respiratory distress, no accessory muscle use. Abdomen--normal bowel sounds and soft. Mild epigastric and left sided abdominal pain Extremities--no cyanosis or clubbing. No edema. Dermatologic--normal skin turgor, normal color, no abnormal lymph nodes, no rash. Neurologic--cranial nerves II through XII grossly intact. Rheumatologic--normal range of motion. Psychiatric--normal affect. Results & Data Results & Data ([facility]) Vital Signs (Past 12 Hours) Vital Signs Temp Pulse Pulse Pulse Resp BP Pulse Ox 07/27/22 07:00 73 07/27/22 09:58 07/27/22 08:09 98.1 F 66 19 101/57 L 94 07/27/22 03:56 98.1 F 69 18 126/66 96 O2 Del Method O2 Flow Rate 07/27/22 07:00 07/27/22 09:58 Nasal Cannula 2 07/27/22 08:09 Nasal Cannula 2 07/27/22 03:56 Nasal Cannula 2 PG Care Time/CCT Total # of Minutes Spent Total Time Spent with Patient: Total time spent is greater than 50% in coordination of care (as documented) at patient's floor/unit and/or counseling patient: Coding Level of Care Code 46885 SUB INP/OBS CARE 2/35MIN Diagnoses COVID-19 U07.1 CHF (congestive heart failure) I50.9 Heart failure type: combined systolic and diastolic CAD, multiple vessel I25.10 Permanent atrial fibrillation I48.2 Chronic kidney disease, stage III (moderate) N18.3 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, with long-term current use of insulin E11.29; E11.65; Z79.4 Dyslipidemia E78.5 Hypertension I10 Hypertension type: essential hypertension Elevated troponin R77.8 Atrial fibrillation I48.11 Atrial fibrillation type: longstanding persistent Encephalopathy G93.40 Time Spent (min) 35 (1) CHF (congestive heart failure) Heart failure type: combined systolic and diastolic (2) Hypertension Hypertension type: essential hypertension Qualified Code(s): I10 - Essential (primary) hypertension (3) Atrial fibrillation Atrial fibrillation type: longstanding persistent Qualified Code(s): I48.11 - Longstanding persistent atrial fibrillation
[2022-07-27] MEDS: ATORVASTATIN 40 MG TAB PO SCH (20:05)
[2022-07-27] MEDS: MONTELUKAST SODIUM 10 MG TABLET PO SCH (20:06)
[2022-07-27] MEDS: SENNA 8.6 MG TAB PO SCH (20:06)
[2022-07-27] MEDS: RIVAROXABAN 15 MG TAB PO SCH (20:07)
[2022-07-28] MEDS: CARBOHYDRATES FOR HYPOGLYCEMIA PO PRN (01:01)
[2022-07-28] MEDS: SPIRONOLACTONE 25 MG TAB PO SCH ×2 (08:52→22:10)
[2022-07-28] MEDS: DOCUSATE SODIUM 100 MG CAP PO SCH ×2 (08:52→22:06)
[2022-07-28] MEDS: GABAPENTIN 300 MG CAP PO SCH ×2 (08:53→22:06)
[2022-07-28] MEDS: guaiFENesin 600 MG TABCR PO SCH ×2 (08:53→22:07)
[2022-07-28] MEDS: METOPROLOL SUCC 50MG EXT REL TAB PO SCH (08:54)
[2022-07-28] MEDS: BUMETANIDE 1 MG TAB PO SCH ×2 (08:54→22:05)
[2022-07-28] MEDS: DULoxetine HCL 60 MG CAP PO SCH (08:55)
[2022-07-28] MEDS: lisinopril 2.5 MG TAB PO SCH (08:55)
[2022-07-28] MEDS: PANTOprazole 40 MG TAB PO SCH (08:55)
[2022-07-28] MEDS: ASPIRIN 81 MG ECTAB PO SCH (08:55)
[2022-07-28] MEDS: POLYETHYLENE (MIRALAX) 17 GM PACK PO SCH (08:56)
[2022-07-28] MEDS: dexAMETHasone 6 MG in SYRINGE 0 ML IV SCH (09:00)
[2022-07-28] MEDS ORDERED: INSULIN HUMAN NPH SC SCH ×3 (09:00→09:30)
[2022-07-28] MEDS: INSULIN ASPART PER UNIT SC SCH ×4 (09:19→22:07)
[2022-07-28] MEDS: LANTUS PER UNIT CHARGE SQ SCH ×2 (09:19→22:08)
--- NOTE | 2022-07-28 10:38 | Pharmacy Report ---
Pharmacy Glycemic Short Note 2 - Date of Service July 28, 2022 - Glycemic Short BSG Results (Last 24 hours): 07/27/22 07/27/22 07/27/22 11:52 16:57 20:38 POC Glucose 99 115 H 124 H 07/28/22 07/28/22 07:50 07:52 POC Glucose 388 H* 279 H OUTPATIENT ANTIDIABETIC REGIMEN: * Lantus 80 units bid, novolog 65 units QID + SSI ASSESSMENT: 07/28: * Total of 76 units of insulin received yesterday: 60 units basal insulin (30 units Lantus + 30 units NPH to cover IV Dex) and 16 units of bolus insulin * Fasting BSG was elevated at 279 mg/dl today; this may be because patient at this time may be basal deficient since he takes 80 units SQ BID of Lantus at home. Plan to add basal Lantus dose scale at HS today. * NPH 30 units covered IV Dex yesterday, BSGs were at goal last night. However, reduced slightly to 25 units of NPH this morning and tightened Novolog Carb ratio to 5 instead so that patient's insulin is not so much basal heavy. 07/27 * Patient received total of 99 units of insulin yesterday, of which 40 units were basal and 40 units NPH to help cover steroids * Fasting BSG 92 mg/dL - Fasting BSG trending down, may have scale for HS time to provide slight decrease * BSGs trending down at dinner yesterday and much improved from day prior. Plan to scale back on daily NPH since seeing improvement now, will decrease to 30 units NPH today * May consider loosening novolog parameters if we see blood sugars trending down today 07/26 * Patient received total of 178 units total of insulin yesterday, of which 70 units were basal and 40 units NPH to help cover steroids * Fasting BSG 129 mg/dL - only requiring 3 units of correctional insulin overnight. Unclear if basal insulin taken 07/24 PM - may scale back slightly on Lantus and target 40-50 units total per day. This dosing is consistent with other admissions * Will continue same NPH for today and trend BSGs 07/25 * 81 year old admitted with increasing shortness of breath, COVID, confusion. PMHx significant for type 2 diabetes, CAD, CHF, CKD III * Patient received dose of dexamethasone 6 mg IV last evening - BSG at HS last night 201, unclear if patient did take Lantus last evening before coming into hospital therefore a dose of Lantus 30 units given overnight * Fasting BSG this morning 266 mg/dL - patient previously admitted and had been followed by glycemic service. Had been receiving ~40 units of basal/day and BSGs stable - will trial Lantus 20 units bid for this morning * Continues with dexamethasone 6 mg iv daily - will add NPH ~0.4 unit/kg daily to help provide coverage with steroids. PLAN FOR INPATIENT GLYCEMIC CONTROL: * Hold outpatient oral diabetes medications * Basal insulin * Lantus 30 units Qam. Lantus 0-15 units scale at HS based on BSG * NPH 25 units daily - with daily IV dexamethasone 6 mg * Bolus insulin * NovoLog per scale ACHS or Q6hrs while NPO * Goal Range: Low 110 mg/dL - High 140 mg/dL * Correction Factor: 15 mg/dL/unit * Nutritional / Prandial insulin per carb ratio of 1 unit per 5 grams CHO consumed
--- NOTE | 2022-07-28 12:08 | Hospitalist Progress Note ---
Date of Service July 28, 2022 Assessment & Plan (1) COVID-19: Plan: Patient with Covid-19 infection with hypoxia in ER. -Deemed not a candidate for Remdesivir -Continue supplemental O2 -Dexamethasone 6mg IV daily -Mucinex, Albuterol, Tylenol PRN -Maintain isolation precautions (2) CHF (congestive heart failure): Plan: Patient with HFrEF. follows with Heart Failure clinic. - Some improvement in SOB -Continue Bumex 1mg po BID. -Intake and output monitoring -Daily weights -Continue Metoprolol 100mg po qAM -Continue Spironolactone 25mg po BID (3) CAD, multiple vessel: Plan: Elevated troponin, 288.8 on admission. trended down -Most likely type 2 [place] from demand ischemia - No acute ischemic changes present on EKG. - Possibly in setting of acute decompensated HFrEF. -Telemetry monitoring -Continue ASA -Continue Atorvastatin -Continue Lisinopril -Continue Metoprolol (4) Permanent atrial fibrillation: Plan: Rate controlled. 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, with long- term current use of insulin: Plan: -Duloxetine -Gabapentin 600mg po BID -Lisinopril 2.5mg -Pharmacy glycemic management consultation appreciated (7) Dyslipidemia: Plan: Chronic -Continue Atorvastatin (8) Hypertension: Plan: Blood pressure adequately controlled -Continue home medication -Monitor BP (9) Elevated troponin: Plan: Probably demand ischemia No ekg changes, no chest pain trend trops (10) Atrial fibrillation: Plan: rate under good control continue home meds of Metoprolol and Rivaroxaban (11) Encephalopathy: Plan: suspected Metabolic encephalopathy CT head did not show any acute pathology patient back to baseline (12) Physical deconditioning: Plan: PT/OT on consult Plan SNF when accepted Admission and Anticipated Discharge Date Admission Date: July 25, 2022 Subjective patient seen and examined, says he feels better. now agreeable to SNF Review of Systems Review of Systems: All systems reviewed are negative, apart from the ones contained in the history. Physical Exam Physical Exam: The patient is awake, alert and oriented 3, well developed and well nourished, normocephalic and atraumatic, lying in bed and in no acute distress. HEENT--PERRL, EOMI, mucous membranes and oropharynx mildly dry Neck--supple. No JVD. No bruits. Thyroid normal, trachea midline, no adenopathy. Heart--normal S1 and S2. No murmurs, rubs or gallops. Lungs--clear bilaterally, no respiratory distress, no accessory muscle use. Abdomen--normal bowel sounds and soft. Mild epigastric and left sided abdominal pain Extremities--no cyanosis or clubbing. No edema. Dermatologic--normal skin turgor, normal color, no abnormal lymph nodes, no rash. Neurologic--cranial nerves II through XII grossly intact. Rheumatologic--normal range of motion. Psychiatric--normal affect. Results & Data Results & Data ([facility]) Vital Signs (Past 12 Hours) Vital Signs Temp Pulse Pulse Resp BP Pulse Ox O2 Del Method 07/28/22 09:15 Nasal Cannula 07/28/22 08:03 97.2 F L 66 16 111/58 L 96 Nasal Cannula 07/28/22 07:00 67 07/28/22 04:04 97.3 F L 67 18 153/79 H 95 Nasal Cannula O2 Flow Rate 07/28/22 09:15 2 07/28/22 08:03 2 07/28/22 07:00 07/28/22 04:04 2 PG Care Time/CCT Total # of Minutes Spent Total Time Spent with Patient: Total time spent is greater than 50% in coordination of care (as documented) at patient's floor/unit and/or counseling patient: Coding Level of Care Code 16229 SUB INP/OBS CARE 2/35MIN Diagnoses COVID-19 U07.1 CHF (congestive heart failure) I50.9 Heart failure type: combined systolic and diastolic CAD, multiple vessel I25.10 Permanent atrial fibrillation I48.2 Chronic kidney disease, stage III (moderate) N18.3 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 Time Spent (min) 35 (1) CHF (congestive heart failure) Heart failure type: combined systolic and diastolic (2) Hypertension Hypertension type: essential hypertension Qualified Code(s): I10 - Essential (primary) hypertension (3) Atrial fibrillation Atrial fibrillation type: longstanding persistent Qualified Code(s): I48.11 - Longstanding persistent atrial fibrillation
[2022-07-28] MEDS: ATORVASTATIN 40 MG TAB PO SCH (22:04)
[2022-07-28] MEDS: MONTELUKAST SODIUM 10 MG TABLET PO SCH (22:09)
[2022-07-28] MEDS: RIVAROXABAN 15 MG TAB PO SCH (22:10)
[2022-07-28] MEDS: SENNA 8.6 MG TAB PO SCH (22:11)
[2022-07-29 06:41] LABS: Hematocrit (blood only) 41.2 % (40.1-51.0); Hemoglobin 13.8 g/dl (14.0-18.0); Mean Corpuscular Hemoglobin 30.5 pg (25.0-34.0); Mean Corpuscular Hgb Conc 33.5 g/dL (32.0-36.0); Mean Corpuscular Volume 91.2 fL (80.0-100.0); Mean Platelet Volume 10.3 fL (9.4-12.4); Platelet Count 260 K/uL (130-400); RDW Coefficient of Variation 14.2 % (11.5-14.5); RDW Standard Deviation 47.8 fL (36.4-46.3); Red Blood Count 4.52 M/uL (4.63-6.08); White Blood Count 10.26 K/ul (4.8-10.8)
[2022-07-29 07:31] LABS: Calcium 8.7 mg/dl (8.5-10.1); Potassium 3.6 mmol/L (3.5-5.1)
[2022-07-29 07:37] LABS: BUN Creatinine Ratio 32.6 (10-20); Creatinine Clr Calc Pharmacy 51.7 ml/min; Est GFR (African American) 54.8 ml/min; Est GFR (Non-African American) 47.3 ml/min
[2022-07-29] MEDS: LANTUS PER UNIT CHARGE SQ SCH ×2 (08:59→20:29)
[2022-07-29] MEDS: INSULIN ASPART PER UNIT SC SCH ×4 (08:59→20:29)
[2022-07-29] MEDS ORDERED: INSULIN HUMAN NPH SC SCH (09:00)
[2022-07-29] MEDS: dexAMETHasone 6 MG in SYRINGE 0 ML IV SCH (09:08)
[2022-07-29] MEDS: guaiFENesin 600 MG TABCR PO SCH ×2 (09:09→20:16)
[2022-07-29] MEDS: PANTOprazole 40 MG TAB PO SCH (09:09)
[2022-07-29] MEDS: ASPIRIN 81 MG ECTAB PO SCH (09:09)
[2022-07-29] MEDS: BUMETANIDE 1 MG TAB PO SCH ×2 (09:09→20:16)
[2022-07-29] MEDS: DULoxetine HCL 60 MG CAP PO SCH (09:09)
[2022-07-29] MEDS: METOPROLOL SUCC 50MG EXT REL TAB PO SCH (09:10)
[2022-07-29] MEDS: GABAPENTIN 300 MG CAP PO SCH ×2 (09:10→20:16)
[2022-07-29] MEDS: lisinopril 2.5 MG TAB PO SCH (09:10)
[2022-07-29] MEDS: DOCUSATE SODIUM 100 MG CAP PO SCH ×2 (09:11→20:13)
[2022-07-29] MEDS: POLYETHYLENE (MIRALAX) 17 GM PACK PO SCH (09:11)
[2022-07-29] MEDS: SPIRONOLACTONE 25 MG TAB PO SCH ×2 (09:12→20:33)
--- NOTE | 2022-07-29 13:59 | Discharge Summary ---
Date of Service July 29, 2022 Admission HPI Per Admitting Provider Wilber Goodrich is an 81yo male with history of CKD, CHF, DM, HTN, HLP, chornic hypoxic respiratory failure on home O2 presenting with confusion and Covid-19 infection. Patient is unable to provide history. Details obtained through chart review and discussion with ER staff. In the ER patient is afebrile, HD stable. He is saturating well on 2L of oxygen by [place] ER Course: Albuterol Bumex 2mg IV Guaifenesin Dexamethasone 6mg IV Principal Diagnosis recurrent falls Discharge Exam The patient is awake, alert and oriented 3, well developed and well nourished, normocephalic and atraumatic, lying in bed and in no acute distress. HEENT--PERRL, EOMI, mucous membranes and oropharynx mildly dry Neck--supple. No JVD. No bruits. Thyroid normal, trachea midline, no adenopathy. Heart--normal S1 and S2. No murmurs, rubs or gallops. Lungs--clear bilaterally, no respiratory distress, no accessory muscle use. Abdomen--normal bowel sounds and soft. Mild epigastric and left sided abdominal pain Extremities--no cyanosis or clubbing. No edema. Dermatologic--normal skin turgor, normal color, no abnormal lymph nodes, no rash. Neurologic--cranial nerves II through XII grossly intact. Rheumatologic--normal range of motion. Psychiatric--normal affect. Discharge Data Allergies Allergy/AdvReac Type Severity Reaction Status Date / Time No Known Allergies Allergy Verified 07/15/22 08:41 Consultations 07/24/22 23:15 ED Decision to Admit Stat Ordered Studies 07/24/22 21:08 CT head/brain wo con Stat Hospital Course (1) COVID-19: Patient with Covid-19 infection with hypoxia in ER. -Deemed not a candidate for Remdesivir -Continue supplemental O2 -Dexamethasone 6mg IV daily -Mucinex, Albuterol, Tylenol PRN -Maintain isolation precautions (2) CHF (congestive heart failure): Patient with HFrEF. follows with Heart Failure clinic. - Some improvement in SOB -Continue Bumex 1mg po BID. -Intake and output monitoring -Daily weights -Continue Metoprolol 100mg po qAM -Continue Spironolactone 25mg po BID (3) CAD, multiple vessel: Elevated troponin, 288.8 on admission. trended down -Most likely type 2 [place] from demand ischemia - No acute ischemic changes present on EKG. - Possibly in setting of acute decompensated HFrEF. -Telemetry monitoring -Continue ASA -Continue Atorvastatin -Continue Lisinopril -Continue Metoprolol (4) Permanent atrial fibrillation: Rate controlled. 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, with long- term current use of insulin: -Duloxetine -Gabapentin 600mg po BID -Lisinopril 2.5mg -Pharmacy glycemic management consultation appreciated (7) Dyslipidemia: Chronic -Continue Atorvastatin (8) Hypertension: Blood pressure adequately controlled -Continue home medication -Monitor BP (9) Elevated troponin: Probably demand ischemia No ekg changes, no chest pain trend trops (10) Atrial fibrillation: rate under good control continue home meds of Metoprolol and Rivaroxaban (11) Encephalopathy: suspected Metabolic encephalopathy CT head did not show any acute pathology patient back to baseline (12) Physical deconditioning: PT/OT on consult Plan SNF when accepted Discharge Plan Discharge Items Reason For Visit: SOB, CONFUSION Follow-up/Referrals: Tere Narayan MD [Primary Care Provider] - Medications and DC Order Prescriptions: No Action gabapentin 300 mg capsule 600 mg PO BID Qty: 360 3RF duloxetine 60 mg capsule,delayed release(DR/EC) 60 mg PO QAM Qty: 90 3RF metoprolol succinate 100 mg tablet extended release 24 hr 100 mg PO QAM Qty: 90 3RF montelukast 10 mg tablet 10 mg PO HS Qty: 90 3RF Lantus U-100 Insulin 100 unit/mL solution 80 unit subcut BID Qty: 150 1RF Rx Instructions: PLUS SLIDING SCALE (DME) insulin syringe-needle U-100 [BD Insulin Syringe Ultra-Fine] 1 mL 31 gauge x 5/16 syringe See Rx Instructions .ROUTE .MEDSUPPLY Qty: 600 3RF Rx Instructions: use 6 x daily to inject insulin insulin aspart U-100 [Novolog U-100 Insulin aspart] 100 unit/mL solution See Rx Instructions .ROUTE .COMPLEX Qty: 280 3RF Dose Instruction: INJECT 65 UNITS UNDER THE SKIN FOUR TIMES A DAY PLUS SLIDING SCALE, MAXIMUM DAILY DOSE: 300 UNITS Rx Instructions: INJECT 65 UNITS UNDER THE SKIN FOUR TIMES A DAY PLUS SLIDING SCALE, MAXIMUM DAILY DOSE: 300 UNITS Xarelto 15 mg tablet 15 mg PO QPM Qty: 90 3RF spironolactone 25 mg tablet 25 mg PO BID Qty: 180 3RF Hold Instructions: Hyperkalemia bumetanide 1 mg tablet 2 mg PO BID Qty: 360 3RF Hold Instructions: Pt rpts no RF at pharm - last dose ~ 01/21/21. Now lasix cholecalciferol (vitamin D3) 50 mcg (2,000 unit) capsule 4,000 unit PO QAM pantoprazole 20 mg tablet,delayed release (DR/EC) 20 mg PO QAM Qty: 90 3RF atorvastatin 80 mg tablet 80 mg PO HS Qty: 90 3RF (DME) Dexcom G6 Sensor Device See Rx Instructions .ROUTE .MEDSUPPLY Qty: 3 Rx Instructions: As directed (DME) Dexcom G6 Transmitter Device See Rx Instructions .ROUTE .MEDSUPPLY Qty: 1 Rx Instructions: As directed (DME) Dexcom G6 Bus Van Driver Misc See Rx Instructions .ROUTE .MEDSUPPLY Qty: 1 Rx Instructions: As directed (DME) FreeStyle Lite Strips Strip See Rx Instructions .ROUTE .MEDSUPPLY Rx Instructions: TEST 1 TIMES DAILY nitroglycerin [Nitrostat] 0.4 mg tablet, sublingual 0.4 mg Sublingual Q5M PRN (Reason: Chest Pain) Rx Instructions: NEEDED FOR CHEST PAIN : ONE TABLET UNDER THE TONGUE EVERY 5 MINUTES UP TO 3 DOSES. aspirin 81 mg Tablet,Delayed Release (Dr/Ec) 81 mg PO QAM fenofibrate 54 mg tablet 54 mg PO HS ketoconazole 2 % cream 1 applic topical DAILY PRN (Reason: Rash) sennosides [Senokot] 8.6 mg Tablet 17.2 mg PO HS Qty: 0 0RF docusate sodium 100 mg Capsule 100 mg PO BID Qty: 0 0RF lisinopril 5 mg tablet 2.5 mg PO QAM Qty: 90 3RF Admission Data Admit Date/Time: 07/25/22 00:32 Attending Provider: Artemio Feng Admit Provider: Taylor Fowler Primary Care Provider: Tere Narayan Other Providers: Taylor Fowler ; Harper,[facility], [place] Coding Diagnoses COVID-19 U07.1 CHF (congestive heart failure) I50.9 Heart failure type: combined systolic and diastolic CAD, multiple vessel I25.10 Permanent atrial fibrillation I48.2 Chronic kidney disease, stage III (moderate) N18.3 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
--- NOTE | 2022-07-29 14:01 | Hospitalist Progress Note ---
Date of Service July 29, 2022 Assessment & Plan (1) COVID-19: Plan: Patient with Covid-19 infection with hypoxia in ER. -Deemed not a candidate for Remdesivir -Continue supplemental O2 -Dexamethasone 6mg IV daily -Mucinex, Albuterol, Tylenol PRN -Maintain isolation precautions (2) CHF (congestive heart failure): Plan: Patient with HFrEF. follows with Heart Failure clinic. - Some improvement in SOB -Continue Bumex 1mg po BID. -Intake and output monitoring -Daily weights -Continue Metoprolol 100mg po qAM -Continue Spironolactone 25mg po BID (3) CAD, multiple vessel: Plan: Elevated troponin, 288.8 on admission. trended down -Most likely type 2 [place] from demand ischemia - No acute ischemic changes present on EKG. - Possibly in setting of acute decompensated HFrEF. -Telemetry monitoring -Continue ASA -Continue Atorvastatin -Continue Lisinopril -Continue Metoprolol (4) Permanent atrial fibrillation: Plan: Rate controlled. 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, with long- term current use of insulin: Plan: -Duloxetine -Gabapentin 600mg po BID -Lisinopril 2.5mg -Pharmacy glycemic management consultation appreciated (7) Dyslipidemia: Plan: Chronic -Continue Atorvastatin (8) Hypertension: Plan: Blood pressure adequately controlled -Continue home medication -Monitor BP (9) Elevated troponin: Plan: Probably demand ischemia No ekg changes, no chest pain trend trops (10) Atrial fibrillation: Plan: rate under good control continue home meds of Metoprolol and Rivaroxaban (11) Encephalopathy: Plan: suspected Metabolic encephalopathy CT head did not show any acute pathology patient back to baseline (12) Physical deconditioning: Plan: PT/OT on consult Plan SNF when accepted Admission and Anticipated Discharge Date Admission Date: July 25, 2022 Subjective patient seen and examined, says he feels better. now agreeable to SNF, denies any new symptoms Review of Systems Review of Systems: All systems reviewed are negative, apart from the ones contained in the history. Physical Exam Physical Exam: The patient is awake, alert and oriented 3, well developed and well nourished, normocephalic and atraumatic, lying in bed and in no acute distress. HEENT--PERRL, EOMI, mucous membranes and oropharynx mildly dry Neck--supple. No JVD. No bruits. Thyroid normal, trachea midline, no adenopathy. Heart--normal S1 and S2. No murmurs, rubs or gallops. Lungs--clear bilaterally, no respiratory distress, no accessory muscle use. Abdomen--normal bowel sounds and soft. Mild epigastric and left sided abdominal pain Extremities--no cyanosis or clubbing. No edema. Dermatologic--normal skin turgor, normal color, no abnormal lymph nodes, no rash. Neurologic--cranial nerves II through XII grossly intact. Rheumatologic--normal range of motion. Psychiatric--normal affect. Results & Data Results & Data ([facility]) Vital Signs (Past 12 Hours) Vital Signs Temp Pulse Resp BP Pulse Ox O2 Del Method O2 Flow Rate 07/29/22 13:06 Nasal Cannula 2 07/29/22 08:07 97.7 F 68 20 99/54 L 92 Nasal Cannula 2 07/29/22 03:44 97.7 F 72 18 141/79 H 95 Nasal Cannula 2 PG Care Time/CCT Total # of Minutes Spent Total Time Spent with Patient: Total time spent is greater than 50% in coordination of care (as documented) at patient's floor/unit and/or counseling patient: Coding Level of Care Code 71222 SUB INP/OBS CARE 2/35MIN Diagnoses COVID-19 U07.1 CHF (congestive heart failure) I50.9 Heart failure type: combined systolic and diastolic CAD, multiple vessel I25.10 Permanent atrial fibrillation I48.2 Chronic kidney disease, stage III (moderate) N18.3 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 Time Spent (min) 35 (1) CHF (congestive heart failure) Heart failure type: combined systolic and diastolic (2) Hypertension Hypertension type: essential hypertension Qualified Code(s): I10 - Essential (primary) hypertension (3) Atrial fibrillation Atrial fibrillation type: longstanding persistent Qualified Code(s): I48.11 - Longstanding persistent atrial fibrillation
--- NOTE | 2022-07-29 15:03 | Pharmacy Report ---
Pharmacy Glycemic Short Note 2 - Date of Service July 29, 2022 - Glycemic Short BSG Results (Last 24 hours): 07/28/22 07/28/22 07/28/22 16:44 20:46 20:47 Glucose POC Glucose 128 H 62 L* 64 L* 07/28/22 07/29/22 07/29/22 21:10 05:54 08:04 Glucose 134 H POC Glucose 88 125 H 07/29/22 11:29 Glucose POC Glucose 195 H OUTPATIENT ANTIDIABETIC REGIMEN: * Lantus 80 units bid, novolog 65 units QID + SSI ASSESSMENT: 07/29: * Patient's BSG dropped to 62 mg/dl at HS yesterday most likely since he received higher doses of Novolog for breakfast and lunch yesterday to cover f or the high sugars at those times. * Basal NPH dose reduced from 25 units yesterday to 15 units today morning to prevent hypoglycemia later. This is to cover for the IV Dex 6 mg. * Continued basal Lantus the same in the AM since fasting BSG at goal = 125 mg/dl. Also continued basal Lantus at HS on a scale based on BSG. Yesterday he did not receive any basal at HS since he was hypoglycemic. * Novolog carb ratio was also loosened this morning. 07/28: * Total of 76 units of insulin received yesterday: 60 units basal insulin (30 units Lantus + 30 units NPH to cover IV Dex) and 16 units of bolus insulin * Fasting BSG was elevated at 279 mg/dl today; this may be because patient at this time may be basal deficient since he takes 80 units SQ BID of Lantus at home. Plan to add basal Lantus dose scale at HS today. * NPH 30 units covered IV Dex yesterday, BSGs were at goal last night. However, reduced slightly to 25 units of NPH this morning and tightened Novolog Carb ratio to 5 instead so that patient's insulin is not so much basal heavy. 07/27 * Patient received total of 99 units of insulin yesterday, of which 40 units were basal and 40 units NPH to help cover steroids * Fasting BSG 92 mg/dL - Fasting BSG trending down, may have scale for HS time to provide slight decrease * BSGs trending down at dinner yesterday and much improved from day prior. Plan to scale back on daily NPH since seeing improvement now, will decrease to 30 units NPH today * May consider loosening novolog parameters if we see blood sugars trending down today 07/26 * Patient received total of 178 units total of insulin yesterday, of which 70 units were basal and 40 units NPH to help cover steroids * Fasting BSG 129 mg/dL - only requiring 3 units of correctional insulin overnight. Unclear if basal insulin taken 07/24 PM - may scale back slightly on Lantus and target 40-50 units total per day. This dosing is consistent with other admissions * Will continue same NPH for today and trend BSGs 07/25 * 81 year old admitted with increasing shortness of breath, COVID, confusion. PMHx significant for type 2 diabetes, CAD, CHF, CKD III * Patient received dose of dexamethasone 6 mg IV last evening - BSG at HS last night 201, unclear if patient did take Lantus last evening before coming into hospital therefore a dose of Lantus 30 units given overnight * Fasting BSG this morning 266 mg/dL - patient previously admitted and had been followed by glycemic service. Had been receiving ~40 units of basal/day and BSGs stable - will trial Lantus 20 units bid for this morning * Continues with dexamethasone 6 mg iv daily - will add NPH ~0.4 unit/kg daily to help provide coverage with steroids. PLAN FOR INPATIENT GLYCEMIC CONTROL: * Hold outpatient oral diabetes medications * Basal insulin * Lantus 30 units Qam. Lantus 0-15 units scale at HS based on BSG * NPH 15 units daily - with daily IV dexamethasone 6 mg * Bolus insulin * NovoLog per scale ACHS or Q6hrs while NPO * Goal Range: Low 110 mg/dL - High 140 mg/dL * Correction Factor: 15 mg/dL/unit * Nutritional / Prandial insulin per carb ratio of 1 unit per 8 grams CHO consumed
[2022-07-29] MEDS: MONTELUKAST SODIUM 10 MG TABLET PO SCH (20:14)
[2022-07-29] MEDS: RIVAROXABAN 15 MG TAB PO SCH (20:16)
[2022-07-29] MEDS: ATORVASTATIN 40 MG TAB PO SCH (20:16)
[2022-07-29] MEDS: SENNA 8.6 MG TAB PO SCH (20:31)
[2022-07-30 08:27] LABS: Hematocrit (blood only) 43.7 % (40.1-51.0); Hemoglobin 14.5 g/dl (14.0-18.0); Mean Corpuscular Hemoglobin 30.1 pg (25.0-34.0); Mean Corpuscular Hgb Conc 33.2 g/dL (32.0-36.0); Mean Corpuscular Volume 90.9 fL (80.0-100.0); Mean Platelet Volume 10.6 fL (9.4-12.4); Platelet Count 267 K/uL (130-400); RDW Coefficient of Variation 14.7 % (11.5-14.5); RDW Standard Deviation 49.2 fL (36.4-46.3); Red Blood Count 4.81 M/uL (4.63-6.08); White Blood Count 12.48 K/ul (4.8-10.8)
[2022-07-30] MEDS: BUMETANIDE 1 MG TAB PO SCH ×2 (08:55→20:57)
[2022-07-30] MEDS: GABAPENTIN 300 MG CAP PO SCH ×2 (08:55→20:56)
[2022-07-30] MEDS: SPIRONOLACTONE 25 MG TAB PO SCH ×2 (08:55→20:56)
[2022-07-30] MEDS: guaiFENesin 600 MG TABCR PO SCH ×2 (08:55→20:58)
[2022-07-30] MEDS: ASPIRIN 81 MG ECTAB PO SCH (08:56)
[2022-07-30] MEDS: DULoxetine HCL 60 MG CAP PO SCH (08:56)
[2022-07-30] MEDS: DOCUSATE SODIUM 100 MG CAP PO SCH ×2 (08:56→21:03)
[2022-07-30] MEDS: METOPROLOL SUCC 50MG EXT REL TAB PO SCH (08:56)
[2022-07-30] MEDS: PANTOprazole 40 MG TAB PO SCH (08:57)
[2022-07-30] MEDS: lisinopril 2.5 MG TAB PO SCH (08:57)
[2022-07-30] MEDS: POLYETHYLENE (MIRALAX) 17 GM PACK PO SCH (08:57)
--- NOTE | 2022-07-30 08:57 | XRay Report ---
XR chest 1V portable CLINICAL HISTORY: viral pneumonia TECHNIQUE: Single frontal radiograph of the chest was obtained. Comparison: Comparison is made to chest radiograph 07/24/2022 FINDINGS: Median sternotomy wires are unchanged. A implanted defibrillator is seen. Cardiomegaly is noted. Inte rval improvement in the bilateral airspace opacities with only trace right lower lung airspace opacit y remaining.. No evidence of pleural effusion or pneumothorax. IMPRESSION: Interval near resolution of previously noted airspace opacities compatible with improvement of viral pneumonia. ACT 112: Negative or not required by law. Electronically signed by: Frantz Newsome M.D. 07/30/2022 8:55 AM
[2022-07-30] MEDS ORDERED: LANTUS PER UNIT CHARGE SQ SCH (09:00)
[2022-07-30] MEDS: INSULIN ASPART PER UNIT SC SCH ×4 (09:09→20:41)
[2022-07-30 09:14] LABS: Potassium 3.8 mmol/L (3.5-5.1)
[2022-07-30 09:19] LABS: BUN Creatinine Ratio 28.2 (10-20); Creatinine Clr Calc Pharmacy 57.1 ml/min; Est GFR (African American) 62.4 ml/min; Est GFR (Non-African American) 53.8 ml/min
--- NOTE | 2022-07-30 13:39 | Pharmacy Report ---
Pharmacy Glycemic Short Note 2 - Date of Service July 30, 2022 - Glycemic Short BSG Results (Last 24 hours): 07/29/22 07/29/22 07/29/22 15:05 16:54 19:54 Glucose POC Glucose 143 H 270 H 292 H 07/30/22 07/30/22 07/30/22 07:40 07:45 11:55 Glucose 103 H POC Glucose 103 H 139 H OUTPATIENT ANTIDIABETIC REGIMEN: * Lantus 80 units bid, Novolog 65 units QID + SSI HbA1c 8.4% (06/16/22) ASSESSMENT: 07/30: * BSGs elevated yesterday, 125, 195, 270, and 292 mg/dL w/ fasting BSG of 103 mg/dL this morning * Received 93 units of insulin (45 units of Lantus, 15 units of NPH, and 33 units of Novolog) * Originally intended to d/c NPH and give all basal as Lantus with IV dexamethasone. However, IV dexamethasone was discontinued prior to AM administration today. Increased Lantus dose still given. Anticipating that this dose should be fine based on prior inpatient BSG data without steroids, as well as reported outpatient regimen. 07/29: * Patient's BSG dropped to 62 mg/dl at HS yesterday most likely since he received higher doses of Novolog for breakfast and lunch yesterday to cover for the high sugars at those times. * Basal NPH dose reduced from 25 units yesterday to 15 units today morning to prevent hypoglycemia later. This is to cover for the IV Dex 6 mg. * Continued basal Lantus the same in the AM since fasting BSG at goal = 125 mg/dl. Also continued basal Lantus at HS on a scale based on BSG. Yesterday he did not receive any basal at HS since he was hypoglycemic. * Novolog carb ratio was also loosened this morning. 07/28: * Total of 76 units of insulin received yesterday: 60 units basal insulin (30 units Lantus + 30 units NPH to cover IV Dex) and 16 units of bolus insulin * Fasting BSG was elevated at 279 mg/dl today; this may be because patient at this time may be basal deficient since he takes 80 units SQ BID of Lantus at home. Plan to add basal Lantus dose scale at HS today. * NPH 30 units covered IV Dex yesterday, BSGs were at goal last night. However, reduced slightly to 25 units of NPH this morning and tightened Novolog Carb ratio to 5 instead so that patient's insulin is not so much basal heavy. Background: * 81 year old admitted with increasing shortness of breath, COVID, confusion. PMHx significant for type 2 diabetes, CAD, CHF, CKD III * Patient received dose of dexamethasone 6 mg IV last evening - BSG at HS last night 201, unclear if patient did take Lantus last evening before coming into hospital therefore a dose of Lantus 30 units given overnight * Fasting BSG this morning 266 mg/dL - patient previously admitted and had been followed by glycemic service. Had been receiving ~40 units of basal/day and BSGs stable - will trial Lantus 20 units bid for this morning * Continues with dexamethasone 6 mg iv daily - will add NPH ~0.4 unit/kg daily to help provide coverage with steroids. PLAN FOR INPATIENT GLYCEMIC CONTROL: * Basal insulin * Lantus 45 units SC x 1 this morning * Will likely go back to BID dosing tomorrow now that steroids are discontinued, will reassess in AM * Bolus insulin * NovoLog per scale ACHS or Q6hrs while NPO * Goal Range: Low 110 mg/dL - High 140 mg/dL * Correction Factor: 20 mg/dL/unit * Nutritional / Prandial insulin per carb ratio of 1 unit per 6 grams CHO consumed
--- NOTE | 2022-07-30 14:24 | Hospitalist Progress Note ---
Date of Service July 30, 2022 Assessment & Plan (1) COVID-19: Plan: Chest x-ray is improved. He is on room air. Parenteral steroid therapy has been discontinued (2) CHF (congestive heart failure): Plan: History of systolic CHF. Chronic. No current exacerbation. Monitor intake and output (3) CAD, multiple vessel: Plan: Stable with current medication (4) Permanent atrial fibrillation: Plan: Continue Xarelto and current cardiac medications (5) Chronic kidney disease, stage III (moderate): Plan: Monitor intake and output. 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 Sliding scale coverage. Continue current medication management (7) Dyslipidemia: Plan: Heart healthy diet. Statin therapy (8) Hypertension: Plan: Controlled with current medications (9) Elevated troponin: Plan: No evidence of acute coronary syndrome (10) Atrial fibrillation: Plan: Chronic. Continue current medications for rate control. Continue Xarelto therapy (11) Encephalopathy: Plan: Suspected metabolic encephalopathy present on admission due to COVID infection. Now resolved (12) Physical deconditioning: Plan: Continue physical therapy. SNF placement at discharge Plan Quarantine through August 03 then placement in SNF facility. Admission and Anticipated Discharge Date Admission Date: July 25, 2022 Subjective Alert and oriented. Chest x-ray done today, July 30, is much improved. He is on room air. Intravenous steroids have been discontinued. He will quarantine through August 03 then be discharged to SNF facility if arrangements are finalized. Review of Systems Review of Systems: Constitutional-no fever or chills ENT-no blurred vision, no double vision, no epistaxis, no sore throat Respiratory-no cough, no wheezing. Some shortness of breath noted with exertion Cardiac-no palpitations, no chest pain, no syncope GI-no nausea, vomiting, diarrhea, melena, hematochezia -no urinary retention, no urinary incontinence, no dysuria, no hematuria Musculoskeletal-no joint pain, no muscle tenderness Skin-no bruising, no rashes, no pruritus Neuro-no isolated weakness, no paresthesia, no weakness Psych-no depression, no anxiety Physical Exam Physical Exam: General-alert and oriented x3, no fevers, no chills HEENT-head atraumatic and normocephalic, pupils equal and reactive to light, extraocular muscles intact Neck-no lymphadenopathy or thyromegaly, trachea midline Chest-few scattered bilateral rhonchi. No dullness to percussion. No wheezing Cardiac-regular rate and rhythm, normal S1 and S2 Abdomen-normal bowel sounds, nontender, no hepatosplenomegaly Extremities-no cyanosis, clubbing, or edema Neuro-cranial nerves II through XII intact, motor and sensory function within normal limits, strength symmetrical , no focal deficits Psych-normal affect, normal mood Results & Data Results & Data ([facility]) Vital Signs (Past 12 Hours) Vital Signs Temp Pulse Pulse Pulse Resp BP Pulse Ox 07/30/22 12:00 36.9 C 66 20 124/66 94 07/30/22 11:49 07/30/22 09:39 65 07/30/22 08:02 36.9 C 63 19 145/82 H 94 07/30/22 03:33 36.3 C L 79 20 152/75 H 92 O2 Del Method 07/30/22 12:00 Room Air 07/30/22 11:49 Room Air 07/30/22 09:39 07/30/22 08:02 Room Air 07/30/22 03:33 Room Air Laboratory Results 07/30/22 07:40 07/30/22 07:40 PG Care Time/CCT Total # of Minutes Spent Total Time Spent with Patient: Total time spent is greater than 50% in coordination of care (as documented) at patient's floor/unit and/or counseling patient: Coding Level of Care Code 77433 SUB INP/OBS CARE 3/50MIN Diagnoses COVID-19 U07.1 CHF (congestive heart failure) I50.9 Heart failure type: combined systolic and diastolic CAD, multiple vessel I25.10 Permanent atrial fibrillation I48.2 Chronic kidney disease, stage III (moderate) N18.3 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 (1) CHF (congestive heart failure) Heart failure type: combined systolic and diastolic (2) Hypertension Hypertension type: essential hypertension Qualified Code(s): I10 - Essential (primary) hypertension (3) Atrial fibrillation Atrial fibrillation type: longstanding persistent Qualified Code(s): I48.11 - Longstanding persistent atrial fibrillation
[2022-07-30] MEDS: CARBOHYDRATES FOR HYPOGLYCEMIA PO PRN (16:56)
[2022-07-30] MEDS: RIVAROXABAN 15 MG TAB PO SCH (20:57)
[2022-07-30] MEDS: ATORVASTATIN 40 MG TAB PO SCH (20:58)
[2022-07-30] MEDS: MONTELUKAST SODIUM 10 MG TABLET PO SCH (20:58)
[2022-07-30] MEDS: SENNA 8.6 MG TAB PO SCH (21:04)
[2022-07-31] MEDS: ACETAMINOPHEN 325 MG TAB PO PRN (00:50)
[2022-07-31] MEDS: INSULIN ASPART PER UNIT SC SCH ×4 (08:53→21:30)
[2022-07-31] MEDS: POLYETHYLENE (MIRALAX) 17 GM PACK PO SCH (08:59)
[2022-07-31] MEDS: GABAPENTIN 300 MG CAP PO SCH ×2 (09:02→20:05)
[2022-07-31] MEDS: DOCUSATE SODIUM 100 MG CAP PO SCH ×2 (09:02→20:05)
[2022-07-31] MEDS: PANTOprazole 40 MG TAB PO SCH (09:02)
[2022-07-31] MEDS: DULoxetine HCL 60 MG CAP PO SCH (09:02)
[2022-07-31] MEDS: guaiFENesin 600 MG TABCR PO SCH ×2 (09:02→20:04)
[2022-07-31 09:42] LABS: Basophils # (auto) 0.01 K/uL (0-0.2); Basophils % (auto) 0.1 %; Eosinophils # (auto) 0.04 K/uL (0-0.50); Eosinophils % (auto) 0.4 %; Hematocrit (blood only) 43.6 % (40.1-51.0); Hemoglobin 14.8 g/dl (14.0-18.0); Immature Granulocytes # (auto) 0.05 K/uL (0.00-0.02); Immature Granulocytes % (auto) 0.5 %; Lymphocytes # (auto) 1.43 K/uL (1.2-3.4); Lymphocytes % (auto) 13.6 %; Mean Corpuscular Hemoglobin 30.6 pg (25.0-34.0); Mean Corpuscular Hgb Conc 33.9 g/dL (32.0-36.0); Mean Corpuscular Volume 90.3 fL (80.0-100.0); Mean Platelet Volume 10.4 fL (9.4-12.4); Monocytes # (auto) 0.71 K/uL (0.24-0.82); Monocytes % (auto) 6.8 %; Neutrophils # (auto) 8.24 K/uL (1.4-6.5); Neutrophils % (auto) 78.6 %; Platelet Count 254 K/uL (130-400); RDW Coefficient of Variation 14.6 % (11.5-14.5); RDW Standard Deviation 48.5 fL (36.4-46.3); Red Blood Count 4.83 M/uL (4.63-6.08); White Blood Count 10.48 K/ul (4.8-10.8)
[2022-07-31] MEDS: SPIRONOLACTONE 25 MG TAB PO SCH ×2 (09:53→21:26)
[2022-07-31] MEDS: BUMETANIDE 1 MG TAB PO SCH ×2 (09:53→20:05)
[2022-07-31] MEDS: ASPIRIN 81 MG ECTAB PO SCH (09:54)
[2022-07-31] MEDS: METOPROLOL SUCC 50MG EXT REL TAB PO SCH (09:54)
[2022-07-31] MEDS: lisinopril 2.5 MG TAB PO SCH (09:54)
--- NOTE | 2022-07-31 09:55 | Urology Consultation ---
Date of Consultation July 31, 2022 Assessment & Plan (1) Gross hematuria: (2) Chronic kidney disease, stage III (moderate): (3) Enlarged prostate without lower urinary tract symptoms (luts): Plan Painless gross hematuria in the setting of acute hospitalization for COVID, anticoagulation with Xarelto for chronic A. fib, diabetes, CHF Seems to be voiding adequately Certainly hemodynamically stable Hemoglobin stable No significant push for any acute work-up at present If necessary he can hold Xarelto Check a culture now As an outpatient he can complete a standard hematuria work-up with imaging and cystoscopy this does not need to delay his discharge History of Present Illness Attending Physician: Nadir Eugene MD History of Present Illness 81-year-old male admitted with COVID and respiratory compromise in the setting of numerous significant comorbidities including atrial fibrillation managed with Xarelto Diabetes CHF Neuropathy No prior history of hematuria or kidney stones Sudden onset of hematuria this morning, no real associated symptoms, maybe minimal burning Aside from being scared by the appearance of the blood he had no other notable symptoms He has not had any cross-sectional imaging of his abdomen during this hospitalization He does feel he is emptying his bladder appropriately Allergies Allergy/AdvReac Type Severity Reaction Status Date / Time No Known Allergies Allergy Verified 07/15/22 08:41 Home Medications Medication Instructions Recorded Confirmed Type aspirin 81 mg tablet,delayed 81 mg PO QAM 06/04/18 07/15/22 History release nitroglycerin 0.4 mg sublingual 0.4 mg sublingual Q5M PRN Chest 02/25/19 07/15/22 History tablet (Nitrostat) Pain cholecalciferol (vitamin D3) 50 4,000 unit PO QAM 04/22/20 07/15/22 History mcg (2,000 unit) capsule blood-glucose meter,continuous #1 ea 11/10/20 06/16/22 History (Dexcom G6 Passenger Attendant) blood-glucose sensor (Dexcom G6 #3 ea 11/10/20 06/16/22 History Sensor device) blood-glucose transmitter (Dexcom #1 ea 11/10/20 06/16/22 History G6 Transmitter device) gabapentin 300 mg capsule 600 mg PO BID #360 caps 05/21/21 07/15/22 Rx duloxetine 60 mg capsule,delayed 60 mg PO QAM #90 caps 08/25/21 07/15/22 Rx release metoprolol succinate 100 mg 100 mg PO QAM #90 tabs 08/25/21 07/15/22 Rx tablet,extended release 24 hr montelukast 10 mg tablet 10 mg PO HS #90 tabs 09/10/21 07/15/22 Rx blood sugar diagnostic (FreeStyle 12/01/21 06/16/22 History Lite Strips) fenofibrate 54 mg tablet 54 mg PO HS 01/04/22 07/15/22 History ketoconazole 2 % topical cream 1 applic topical DAILY PRN Rash 01/04/22 07/15/22 History insulin glargine 100 unit/mL 80 unit (0.8 mL) subcut BID high 01/17/22 07/15/22 Rx subcutaneous solution (Lantus blood sugar #150 mL U-100 Insulin) atorvastatin 80 mg tablet 80 mg PO HS #90 tabs 03/19/22 07/15/22 Rx pantoprazole 20 mg tablet,delayed 20 mg PO QAM #90 tabs 03/19/22 07/15/22 Rx release insulin syringe-needle U-100 1 mL #600 ea 04/07/22 07/05/22 Rx 31 gauge x 5/16" (BD Insulin Syringe Ultra-Fine) insulin aspart U-100 100 unit/mL See Rx Instructions .Route 04/19/22 07/15/22 Rx subcutaneous solution (Novolog .COMPLEX #280 mL U-100 Insulin aspart) docusate sodium 100 mg capsule 100 mg PO BID #0 caps 05/02/22 07/15/22 Rx lisinopril 5 mg tablet 2.5 mg PO QAM #90 tabs 05/02/22 07/15/22 Rx sennosides 8.6 mg tablet (Senokot) 17.2 mg PO HS #0 tabs 05/02/22 07/15/22 Rx rivaroxaban 15 mg tablet (Xarelto) 15 mg PO QPM #90 tabs 05/20/22 07/15/22 Rx spironolactone 25 mg tablet 25 mg PO BID #180 tabs 06/07/22 07/15/22 Rx bumetanide 1 mg tablet 2 mg PO BID #360 tabs 07/15/22 Rx Patient History Medical History Anxiety Atrial fibrillation Reason for Xarelto Follows with [facility] C4 cervical fracture No surgical intervention. Full ROM. Occurred 2-3 years ago- no current issues CAD (coronary artery disease) S/p RCA PCI in 1991, 1998, and 2004- totaling 5 stents to prox and mid RCA S/p 3 vessel CABG 2008 Cardiomyopathy Carotid artery stenosis, asymptomatic No hemodynamically significant stenosis per 2019 CTA of neck to ICAs bilaterally CHF (congestive heart failure) Chronic kidney disease, stage III (moderate) Depression DM type 2 (diabetes mellitus, type 2) IDDM Dysphagia Occasional (per ) Gastroparesis GERD (gastroesophageal reflux disease) Well controlled and stable Hearing deficit [place] History of traumatic brain injury 2018 (after fall down stairs) > subdural hematoma resolved without surgical intervention, no residual issues Hyperlipidemia Hypertension ICD (implantable cardioverter-defibrillator) in place [employer]. Implanted ~2017 for sustained VT Insomnia LBBB (left bundle branch block) Chronic dating back to at least 07/2019 EKG per charts PAD (peripheral artery disease) H/o of right SFA/TP trunk/PT angioplasty at [facility] (2011) Peripheral neuropathy Poor historian Sensorineural hearing loss of both ears Situational depression Sleep apnea Refuses device per records Spinal stenosis Subdural hematoma 2018 (after fall down stairs) > subdural hematoma resolved without surgical intervention, no residual issues Venous insufficiency Surgical History History of anesthesia reaction Combative with emergence History of back surgery History of cardiac cath Multiple (hx stents) History of cataract surgery R/L History of cholecystectomy History of colonoscopy History of knee replacement Left Hx of angioplasty Hx of CABG CABG x3 (2008) S/P epidural steroid injection S/P ICD (internal cardiac defibrillator) procedure Family History Daughter Family history of reaction to anesthesia PONV Sister Cancer Father Family history of diabetes mellitus Grandmother (Maternal) Family history of diabetes mellitus Other No significant family history Denies family history of Ovarian cancer Prostate cancer Coronary heart disease Breast cancer Colorectal cancer Social History Smoking Status: Former smoker Tobacco Type: Cigarettes Age Started Using Tobacco: 19; Age Quit Using Tobacco: 49; packs per day: 2; Second Hand Exposure: Yes (SPOUSE SMOKES (OUTSIDE)); Hx Alcohol Use: No Hx Substance Use: No Preferred Language: Wolof Communication Ability: Impaired Visual Impairment: Limited Hearing Ability: Hard of Hearing Hospice Team Lead Required: No Beliefs That Will Affect Care: None marital status: Current Living Situation: Spouse current occupational status: retired 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 How many Children do You have: 6 Other Information That Helps Us Care for You: No Feels Safe at Home: Yes Safety Concerns: Feels Safe At This Time Childhood Exposure to Second-Hand Smoke: Yes caffeine: No during the past year weight has: remained stable Dental Care, Regularly: Yes Physical Activity Frequency: Does not Exercise Seatbelt Use: never Sunscreen Use: No Assistive Devices: Cane and Walker Review of Systems Constitutional: no fever, no chills and no fatigue Eyes: no worsening vision Ear, Nose, Mouth, Throat: no facial pain and no pain with swallowing Respiratory: + dyspnea; no cough Cardiovascular: no chest pain and no palpitations Gastrointestinal: no abdominal pain, no nausea and no vomiting Musculoskeletal: no back pain Integumentary: no rash and no urticaria Neurologic: no gait abnormality and no unsteadiness Psychiatric: no behavioral changes and no depression Endocrine: no fatigue Results & Data ([facility]) Vital Signs (Past 12 Hours) Vital Signs Temp Pulse Pulse Pulse Resp BP Pulse Ox 07/31/22 09:24 07/31/22 07:58 36.3 C L 68 18 115/59 L 97 07/30/22 22:02 61 07/31/22 02:08 93 07/30/22 23:12 36.3 C L 69 20 112/62 95 O2 Del Method O2 Flow Rate 07/31/22 09:24 Nasal Cannula 2 07/31/22 07:58 Nasal Cannula 2 07/30/22 22:02 07/31/22 02:08 Nasal Cannula 2 07/30/22 23:12 Room Air PG Care Time/CCT Total # of Minutes Spent Total Time Spent with Patient: Total time spent is greater than 50% in coordination of care (as documented) at patient's floor/unit and/or counseling patient: Coding Level of Care Code INP/OBS CONSULT LVL 4, 60 MIN Diagnoses Gross hematuria R31.0 Chronic kidney disease, stage III (moderate) N18.3 Enlarged prostate without lower urinary tract symptoms (luts) N40.0
[2022-07-31 10:03] LABS: BUN Creatinine Ratio 26.8 (10-20); Calcium 9.1 mg/dl (8.5-10.1); Creatinine Clr Calc Pharmacy 51.3 ml/min; Est GFR (African American) 54.8 ml/min; Est GFR (Non-African American) 47.3 ml/min; Potassium 4.4 mmol/L (3.5-5.1)
[2022-07-31] MEDS ORDERED: LANTUS PER UNIT CHARGE SQ ONE (11:45)
--- NOTE | 2022-07-31 12:39 | Hospitalist Progress Note ---
Date of Service July 31, 2022 Assessment & Plan (1) COVID-19: Plan: Chest x-ray has improved. He desaturates at nighttime with sleep and needs oxygen but while awake and alert his room air oxygen saturation is fine. Parenteral steroid therapy has been discontinued (2) CHF (congestive heart failure): Plan: History of systolic CHF. Chronic. No current exacerbation. Monitor intake and output (3) CAD, multiple vessel: Plan: Stable with current medication (4) Permanent atrial fibrillation: Plan: Anticoagulation with Xarelto which is temporarily on hold. (5) Chronic kidney disease, stage III (moderate): Plan: Monitor intake and output. 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 Sliding scale coverage. Continue current medication management (7) Dyslipidemia: Plan: Heart healthy diet. Statin therapy (8) Hypertension: Plan: Controlled with current medications (9) Elevated troponin: Plan: No evidence of acute coronary syndrome (10) Atrial fibrillation: Plan: Chronic. Continue current medications for rate control. Xarelto therapy is temporarily on hold due to gross hematuria (11) Encephalopathy: Plan: Suspected metabolic encephalopathy present on admission due to COVID infection. Now resolved (12) Physical deconditioning: Plan: Continue physical therapy. SNF placement at discharge (13) Gross hematuria: Plan: Urology consultation and recommendations appreciated. Xarelto is temporarily on hold. CBC is stable Plan Quarantine through August 03 then placement in SNF facility. Admission and Anticipated Discharge Date Admission Date: July 25, 2022 Subjective No significant clinical change except he has developed gross hematuria. Urology consultation appreciated. Hemoglobin is stable. Xarelto is now temporarily on hold. No intervention at this time. Review of Systems Review of Systems: Constitutional-no fever or chills ENT-no blurred vision, no double vision, no epistaxis, no sore throat Respiratory-no cough, no wheezing. Some shortness of breath noted with exertion Cardiac-no palpitations, no chest pain, no syncope GI-no nausea, vomiting, diarrhea, melena, hematochezia -no urinary retention, no urinary incontinence, no dysuria. Gross hematuria has developed Musculoskeletal-no joint pain, no muscle tenderness Skin-no bruising, no rashes, no pruritus Neuro-no isolated weakness, no paresthesia, no weakness Psych-no depression, no anxiety Physical Exam Physical Exam: General-alert and oriented x3, no fevers, no chills HEENT-head atraumatic and normocephalic, pupils equal and reactive to light, extraocular muscles intact Neck-no lymphadenopathy or thyromegaly, trachea midline Chest-few scattered bilateral rhonchi. No dullness to percussion. No wheezing Cardiac-regular rate and rhythm, normal S1 and S2 Abdomen-normal bowel sounds, nontender, no hepatosplenomegaly Extremities-no cyanosis, clubbing, or edema Neuro-cranial nerves II through XII intact, motor and sensory function within normal limits, strength symmetrical , no focal deficits Psych-normal affect, normal mood Results & Data Results & Data ([facility]) Vital Signs (Past 12 Hours) Vital Signs Temp Pulse Pulse Resp BP Pulse Ox O2 Del Method 07/31/22 12:00 71 18 129/60 95 Nasal Cannula 07/31/22 10:39 69 07/31/22 10:38 95 Room Air 07/31/22 09:24 Nasal Cannula 07/31/22 07:58 36.3 C L 68 18 115/59 L 97 Nasal Cannula 07/31/22 02:08 93 Nasal Cannula O2 Flow Rate 07/31/22 12:00 2 07/31/22 10:39 07/31/22 10:38 07/31/22 09:24 2 07/31/22 07:58 2 07/31/22 02:08 2 PG Care Time/CCT Total # of Minutes Spent Total Time Spent with Patient: Total time spent is greater than 50% in coordination of care (as documented) at patient's floor/unit and/or counseling patient: Coding Level of Care Code 57971 SUB INP/OBS CARE 3/50MIN Diagnoses COVID-19 U07.1 CHF (congestive heart failure) I50.9 Heart failure type: combined systolic and diastolic CAD, multiple vessel I25.10 Permanent atrial fibrillation I48.2 Chronic kidney disease, stage III (moderate) N18.3 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 (1) CHF (congestive heart failure) Heart failure type: combined systolic and diastolic (2) Hypertension Hypertension type: essential hypertension Qualified Code(s): I10 - Essential (primary) hypertension (3) Atrial fibrillation Atrial fibrillation type: longstanding persistent Qualified Code(s): I48.11 - Longstanding persistent atrial fibrillation
--- NOTE | 2022-07-31 13:04 | Pharmacy Report ---
Pharmacy Glycemic Short Note 2 - Date of Service July 31, 2022 - Glycemic Short BSG Results (Last 24 hours): 07/30/22 07/30/22 07/30/22 16:56 17:11 19:49 Glucose POC Glucose 53 L* 88 94 07/31/22 07/31/22 09:18 11:25 Glucose 229 H POC Glucose 209 H OUTPATIENT ANTIDIABETIC REGIMEN: * Lantus 80 units bid, Novolog 65 units QID + SSI HbA1c 8.4% (06/16/22) ASSESSMENT: 07/31: * Episode of hypoglycemia last evening (53 mg/dL), not completely unexpected given larger basal dose and discontinuation of steroids * Fasting BSG of 115 mg/dL this morning - will reduce basal today now that steroids are discontinued (~50-80% of yesterday's dose) * Again, prior admission data suggests increased insulin needs compared to current - will follow closely 07/30: * BSGs elevated yesterday, 125, 195, 270, and 292 mg/dL w/ fasting BSG of 103 mg/dL this morning * Received 93 units of insulin (45 units of Lantus, 15 units of NPH, and 33 units of Novolog) * Originally intended to d/c NPH and give all basal as Lantus with IV dexamethasone. However, IV dexamethasone was discontinued prior to AM administration today. Increased Lantus dose still given. Anticipating that this dose should be fine based on prior inpatient BSG data without steroids, as well as reported outpatient regimen. 07/29: * Patient's BSG dropped to 62 mg/dl at HS yesterday most likely since he received higher doses of Novolog for breakfast and lunch yesterday to cover for the high sugars at those times. * Basal NPH dose reduced from 25 units yesterday to 15 units today morning to prevent hypoglycemia later. This is to cover for the IV Dex 6 mg. * Continued basal Lantus the same in the AM since fasting BSG at goal = 125 mg/dl. Also continued basal Lantus at HS on a scale based on BSG. Yesterday he did not receive any basal at HS since he was hypoglycemic. * Novolog carb ratio was also loosened this morning. Background: * 81 year old admitted with increasing shortness of breath, COVID, confusion. PMHx significant for type 2 diabetes, CAD, CHF, CKD III * Patient received dose of dexamethasone 6 mg IV last evening - BSG at HS last night 201, unclear if patient did take Lantus last evening before coming into hospital therefore a dose of Lantus 30 units given overnight * Fasting BSG this morning 266 mg/dL - patient previously admitted and had been followed by glycemic service. Had been receiving ~40 units of basal/day and BSGs stable - will trial Lantus 20 units bid for this morning * Continues with dexamethasone 6 mg iv daily - will add NPH ~0.4 unit/kg daily to help provide coverage with steroids. PLAN FOR INPATIENT GLYCEMIC CONTROL: * Basal insulin * Lantus 20 units SC x 1 with lunch today * Lantus 0-15 units SC HS x 1 * Reassess in AM * Bolus insulin * NovoLog per scale ACHS or Q6hrs while NPO * Goal Range: Low 110 mg/dL - High 140 mg/dL * Correction Factor: 20 mg/dL/unit * Nutritional / Prandial insulin per carb ratio of 1 unit per 7 grams CHO consumed
[2022-07-31] MEDS: MONTELUKAST SODIUM 10 MG TABLET PO SCH (20:04)
[2022-07-31] MEDS: SENNA 8.6 MG TAB PO SCH (20:04)
[2022-07-31] MEDS: ATORVASTATIN 40 MG TAB PO SCH (20:06)
[2022-07-31 20:53] LABS: Hematocrit (blood only) 40.9 % (40.1-51.0); Hemoglobin 13.5 g/dl (14.0-18.0)
[2022-07-31] MEDS ORDERED: LANTUS PER UNIT CHARGE SQ SCH (21:00)
--- NOTE | 2022-08-01 07:48 | Hospitalist Progress Note ---
Date of Service August 01, 2022 Assessment & Plan (1) COVID-19: Plan: acute covid pneumonia, improved, still with requirement of hs oxygen for hypoxia Patient is not initiated on dexamethasone remdesivir (2) CHF (congestive heart failure): Plan: History of systolic CHF. Chronic. Stable bumex, metoprolol, lisinopril (3) CAD, multiple vessel: Plan: chronic Stable aspirin, atorvastatin, lisinopril, metoprolol, (4) Permanent atrial fibrillation: Plan: Chronic and stable Resolution of hematuria anticoagulation with Xarelto will resume if able (5) Chronic kidney disease, stage III (moderate): Plan: chronic stable continue lisinopril (6) 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, with long- term current use of insulin: Plan: chronic unstable, on basal bolus hgb a1c 8.4 (7) Dyslipidemia: Plan: Heart healthy diet. Statin therapy chronic stable (8) Hypertension: Plan: chronic stable (9) Elevated troponin: Plan: acute self limited No evidence of acute coronary syndrome demand ischemia (10) Atrial fibrillation: Plan: Chronic. Continue current medications for rate control. Xarelto therapy is temporarily on hold due to gross hematuria, found to be secondary to E coli uti (11) Encephalopathy: Plan: acute self limited Suspected metabolic encephalopathy present on admission due to COVID infection. Now resolved (12) Physical deconditioning: Plan: Continue physical therapy. SNF placement at discharge (13) Gross hematuria: Plan: Urology consultation and recommendations appreciated. Xarelto is temporarily on hold. CBC is stable will resume once definitive culture is returned e coli uti will treat with ceftriaxone awaiting culture results Plan Quarantine through August 03 then placement in SNF facility. Admission and Anticipated Discharge Date Admission Date: July 25, 2022 Subjective Patient is in good condition. He is without significant shortness of breath still with dysuria and having some diarrhea. Urine culture shows E. coli. Physical Exam Physical Exam: Physical exam finds him awake alert appropriate. His lungs have decreased breath sounds and some rales at the base which clear with deep inspiration his abdomen is obese NABS soft and only mildly uncomfortable in the suprapubic area and left lower quadrant Results & Data Results & Data ([facility]) Vital Signs (Past 12 Hours) Vital Signs Temp Pulse Pulse Resp BP Pulse Ox O2 Del Method 08/01/22 07:21 99 H 08/01/22 04:31 98.1 F 64 18 163/73 H 95 Room Air 08/01/22 01:50 74 07/31/22 20:00 Nasal Cannula O2 Flow Rate 08/01/22 07:21 08/01/22 04:31 08/01/22 01:50 07/31/22 20:00 2 PG Care Time/CCT Total # of Minutes Spent Total Time Spent with Patient: Total time spent is greater than 50% in coordination of care (as documented) at patient's floor/unit and/or counseling patient: Coding Level of Care Code 72729 SUB INP/OBS CARE 3/50MIN Diagnoses COVID-19 U07.1 CHF (congestive heart failure) I50.9 Heart failure type: combined systolic and diastolic CAD, multiple vessel I25.10 Permanent atrial fibrillation I48.2 Chronic kidney disease, stage III (moderate) N18.3 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 (1) CHF (congestive heart failure) Heart failure type: combined systolic and diastolic (2) Atrial fibrillation Atrial fibrillation type: longstanding persistent Qualified Code(s): I48.11 - Longstanding persistent atrial fibrillation (3) Hypertension Hypertension type: essential hypertension Qualified Code(s): I10 - Essential (primary) hypertension
[2022-08-01] MEDS ORDERED: cefTRIAXone SODIUM 2,000 MG in DEXTROSE 5% 50 ML IV STA (07:52)
[2022-08-01 07:56] LABS: Basophils # (auto) 0.03 K/uL (0-0.2); Basophils % (auto) 0.2 %; Eosinophils # (auto) 0.07 K/uL (0-0.50); Eosinophils % (auto) 0.6 %; Hematocrit (blood only) 40.6 % (40.1-51.0); Hemoglobin 13.6 g/dl (14.0-18.0); Immature Granulocytes # (auto) 0.07 K/uL (0.00-0.02); Immature Granulocytes % (auto) 0.6 %; Lymphocytes # (auto) 1.54 K/uL (1.2-3.4); Lymphocytes % (auto) 12.1 %; Mean Corpuscular Hgb Conc 33.5 g/dL (32.0-36.0); Mean Corpuscular Volume 89.4 fL (80.0-100.0); Monocytes % (auto) 10.3 %; Neutrophils # (auto) 9.67 K/uL (1.4-6.5); Neutrophils % (auto) 76.2 %; Platelet Count 282 K/uL (130-400); RDW Coefficient of Variation 14.5 % (11.5-14.5); RDW Standard Deviation 47.6 fL (36.4-46.3); Red Blood Count 4.54 M/uL (4.63-6.08); White Blood Count 12.68 K/ul (4.8-10.8)
[2022-08-01] MEDS: INSULIN ASPART PER UNIT SC SCH ×4 (08:19→22:03)
[2022-08-01] MEDS: BUMETANIDE 1 MG TAB PO SCH ×2 (08:25→21:46)
[2022-08-01] MEDS: PANTOprazole 40 MG TAB PO SCH (08:25)
[2022-08-01] MEDS: METOPROLOL SUCC 50MG EXT REL TAB PO SCH (08:25)
[2022-08-01] MEDS: DOCUSATE SODIUM 100 MG CAP PO SCH ×2 (08:25→21:46)
[2022-08-01] MEDS: ASPIRIN 81 MG ECTAB PO SCH (08:25)
[2022-08-01] MEDS: GABAPENTIN 300 MG CAP PO SCH ×2 (08:26→21:46)
[2022-08-01] MEDS: POLYETHYLENE (MIRALAX) 17 GM PACK PO SCH (08:26)
[2022-08-01] MEDS: guaiFENesin 600 MG TABCR PO SCH ×2 (08:26→21:45)
[2022-08-01] MEDS: lisinopril 2.5 MG TAB PO SCH (08:27)
[2022-08-01] MEDS: DULoxetine HCL 60 MG CAP PO SCH (08:27)
[2022-08-01] MEDS: SPIRONOLACTONE 25 MG TAB PO SCH ×2 (08:28→21:45)
[2022-08-01] MEDS ORDERED: LANTUS PER UNIT CHARGE SQ SCH ×2 (09:00→21:00)
--- NOTE | 2022-08-01 10:03 | Urology Progress Note ---
Date of Service August 01, 2022 Assessment & Plan (1) Gross hematuria: (2) UTI (urinary tract infection): Plan 81yo/M who developed painless gross hematuria in the setting of acute hospitalization for COVID, anticoagulation with Xarelto for chronic Afib, UTI. Afebrile and hemodynamically stable. Hemoglobin stable. Urine is reportedly clear this morning per patient. Voiding without issue, continue to monitor. Bladder scan prn. Urine culture shows preliminary E.coli. Recommend broad spectrum antibiotics and tailoring as culture data becomes available. Suspect hematuria secondary to UTI in the setting of chronic anticoagulation. Anticoagulation currently on hold per primary team. Can likely resume in the next 24-48hrs given urine remains clear. Continue supportive care and antibiotic therapy, follow culture. Will arrange an outpatient follow-up with our service and further work-up if indicated. Urology will sign-off. Please contact us with any further questions, concerns, or changes in patient status. Admission and Anticipated Discharge Date Admission Date: July 25, 2022 Subjective Patient examined at bedside this AM. Awake, resting in bed on arrival. No acute distress. On isolation for COVID. Voiding without issue. Reports urine is clear this morning. Denies abdominal, suprapubic, or flank pain. Denies fevers or chills. Denies nausea or vomiting. Review of Systems Constitutional: as per Subjective / HPI Gastrointestinal: as per Subjective / HPI Genitourinary: + as per Subjective / HPI Physical Exam Constitutional: no acute distress Respiratory: no respiratory distress and no labored breathing Gastrointestinal (Abdomen): Percussion/Palpation: abdomen soft; abdomen nontender Neurologic: awake Psychiatric: Orientation: alert and oriented x 3 Results & Data ([facility]) Vital Signs (Past 12 Hours) Vital Signs Temp Pulse Pulse Resp BP BP Pulse Ox 08/01/22 07:55 36.5 C 63 20 98/63 L 91 08/01/22 07:21 99 H 08/01/22 04:31 36.7 C 64 18 163/73 H 95 08/01/22 01:50 74 O2 Del Method O2 Flow Rate 08/01/22 07:55 Nasal Cannula 2 08/01/22 07:21 08/01/22 04:31 Room Air 08/01/22 01:50 PG Care Time/CCT Total # of Minutes Spent Total Time Spent with Patient: Total time spent is greater than 50% in coordination of care (as documented) at patient's floor/unit and/or counseling patient: Coding Level of Care Code 71611 SUB INP/OBS CARE MIN Diagnoses Gross hematuria R31.0 UTI (urinary tract infection) N39.0
[2022-08-01] MEDS: SENNA 8.6 MG TAB PO SCH (21:45)
[2022-08-01] MEDS: MONTELUKAST SODIUM 10 MG TABLET PO SCH (21:45)
[2022-08-01] MEDS: ATORVASTATIN 40 MG TAB PO SCH (21:46)
--- NOTE | 2022-08-02 07:52 | Hospitalist Progress Note ---
Date of Service August 02, 2022 Assessment & Plan (1) COVID-19: Plan: acute covid pneumonia, improved, still with requirement of hs oxygen for hypoxia Patient is not initiated on dexamethasone remdesivir exam of lungs is not concerning for focal loss (2) CHF (congestive heart failure): Plan: History of systolic CHF. Chronic. 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 Statin therapy chronic stable (8) Hypertension: Plan: chronic stable (9) Elevated troponin: Plan: acute self limited No evidence of acute coronary syndrome demand ischemia (10) Atrial fibrillation: Plan: Chronic. Continue current medications for rate control. Xarelto therapy was on hold due to gross hematuria, found to be secondary to E coli uti (11) Encephalopathy: Plan: acute self limited Suspected metabolic encephalopathy present on admission due to COVID infection. Now resolved (12) Physical deconditioning: Plan: Continue physical therapy. SNF placement at discharge (13) Gross hematuria: Plan: Urology consultation and recommendations appreciated. CBC is stable will resume once definitive culture is returned e coli uti will treat with ceftriaxone awaiting culture results Plan Quarantine through August 03 then placement in SNF facility. Admission and Anticipated Discharge Date Admission Date: July 25, 2022 Subjective Patient is in good condition. He is without significant shortness of breath still with dysuria and having some diarrhea. Urine culture shows E. coli. he continues to require oxygen supplementation Physical Exam Physical Exam: Physical exam finds him awake alert appropriate. His lungs continue to have decreased breath sounds and some rales at the base abdomen is obese NABS soft and now non tender Results & Data Results & Data ([facility]) Vital Signs (Past 12 Hours) Vital Signs Temp Pulse Pulse Resp BP BP Pulse Ox 08/02/22 06:00 97.5 F L 60 19 159/72 H 99 08/02/22 02:26 97.3 F L 73 18 130/72 97 08/01/22 22:50 88 08/01/22 23:00 97.2 F L 76 19 181/91 H 167/98 H 95 08/01/22 21:30 O2 Del Method O2 Flow Rate 08/02/22 06:00 Nasal Cannula 2 08/02/22 02:26 Nasal Cannula 2 08/01/22 22:50 08/01/22 23:00 Nasal Cannula 2 08/01/22 21:30 Nasal Cannula 2 PG Care Time/CCT Total # of Minutes Spent Total Time Spent with Patient: Total time spent is greater than 50% in coordination of care (as documented) at patient's floor/unit and/or counseling patient: Coding Level of Care Code 78533 SUB INP/OBS CARE MIN Diagnoses COVID-19 U07.1 CHF (congestive heart failure) I50.9 Heart failure type: combined systolic and diastolic CAD, multiple vessel I25.10 Permanent atrial fibrillation I48.2 Chronic kidney disease, stage III (moderate) N18.3 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 (1) CHF (congestive heart failure) Heart failure type: combined systolic and diastolic (2) Atrial fibrillation Atrial fibrillation type: longstanding persistent Qualified Code(s): I48.11 - Longstanding persistent atrial fibrillation (3) Hypertension Hypertension type: essential hypertension Qualified Code(s): I10 - Essential (primary) hypertension
[2022-08-02] MEDS: INSULIN ASPART PER UNIT SC SCH ×4 (08:19→21:07)
[2022-08-02] MEDS: lisinopril 2.5 MG TAB PO SCH (08:23)
[2022-08-02] MEDS: GABAPENTIN 300 MG CAP PO SCH ×2 (08:24→20:55)
[2022-08-02] MEDS: guaiFENesin 600 MG TABCR PO SCH ×2 (08:24→20:54)
[2022-08-02] MEDS: BUMETANIDE 1 MG TAB PO SCH ×2 (08:24→20:55)
[2022-08-02] MEDS: POLYETHYLENE (MIRALAX) 17 GM PACK PO SCH (08:24)
[2022-08-02] MEDS: SPIRONOLACTONE 25 MG TAB PO SCH ×2 (08:24→20:54)
[2022-08-02] MEDS: ASPIRIN 81 MG ECTAB PO SCH (08:25)
[2022-08-02] MEDS: DOCUSATE SODIUM 100 MG CAP PO SCH ×2 (08:25→20:55)
[2022-08-02] MEDS: METOPROLOL SUCC 50MG EXT REL TAB PO SCH (08:25)
[2022-08-02] MEDS: PANTOprazole 40 MG TAB PO SCH (08:26)
[2022-08-02] MEDS: DULoxetine HCL 60 MG CAP PO SCH (08:26)
[2022-08-02] MEDS: LANTUS PER UNIT CHARGE SQ SCH (08:34)
[2022-08-02] MEDS: cefTRIAXone SODIUM 2,000 MG in DEXTROSE 5% 50 ML IV SCH (10:19)
[2022-08-02] MEDS: MONTELUKAST SODIUM 10 MG TABLET PO SCH (20:54)
[2022-08-02] MEDS: RIVAROXABAN 15 MG TAB PO SCH (20:54)
[2022-08-02] MEDS: SENNA 8.6 MG TAB PO SCH (20:54)
[2022-08-02] MEDS: ATORVASTATIN 40 MG TAB PO SCH (20:55)
[2022-08-02] MEDS ORDERED: LANTUS PER UNIT CHARGE SQ SCH (21:00)
[2022-08-03] MEDS: guaiFENesin 600 MG TABCR PO SCH ×2 (08:00→20:43)
[2022-08-03] MEDS: SPIRONOLACTONE 25 MG TAB PO SCH ×2 (08:00→20:46)
[2022-08-03] MEDS: PANTOprazole 40 MG TAB PO SCH (08:00)
[2022-08-03] MEDS: lisinopril 2.5 MG TAB PO SCH (08:00)
[2022-08-03] MEDS: POLYETHYLENE (MIRALAX) 17 GM PACK PO SCH (08:01)
[2022-08-03] MEDS: ASPIRIN 81 MG ECTAB PO SCH (08:01)
[2022-08-03] MEDS: METOPROLOL SUCC 50MG EXT REL TAB PO SCH (08:01)
[2022-08-03] MEDS: BUMETANIDE 1 MG TAB PO SCH ×2 (08:01→20:44)
[2022-08-03] MEDS: DOCUSATE SODIUM 100 MG CAP PO SCH ×2 (08:01→20:49)
[2022-08-03] MEDS: DULoxetine HCL 60 MG CAP PO SCH (08:01)
[2022-08-03] MEDS: GABAPENTIN 300 MG CAP PO SCH ×2 (08:01→20:47)
[2022-08-03] MEDS: INSULIN ASPART PER UNIT SC SCH ×4 (08:12→20:45)
[2022-08-03] MEDS: LANTUS PER UNIT CHARGE SQ SCH (08:13)
--- NOTE | 2022-08-03 08:27 | Hospitalist Progress Note ---
Date of Service August 03, 2022 Assessment & Plan (1) COVID-19: Plan: acute covid pneumonia, improved, still with requirement of hs oxygen for hypoxia Patient is not initiated on dexamethasone remdesivir exam of lungs is not concerning for focal loss check CXR 08/03/22 without significant changes instructed caregiver to aggressively titrate oxygen down (2) CHF (congestive heart failure): Plan: History of systolic CHF. Chronic. 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 Statin therapy chronic stable (8) Hypertension: Plan: chronic stable (9) Elevated troponin: Plan: acute self limited No evidence of acute coronary syndrome demand ischemia (10) Atrial fibrillation: Plan: Chronic. Continue current medications for rate control. Xarelto therapy was on hold due to gross hematuria, found to be secondary to E coli uti (11) Encephalopathy: Plan: acute self limited resolved Suspected metabolic encephalopathy present on admission due to COVID infection. plus uti poa, (12) Physical deconditioning: Plan: Continue physical therapy. SNF placement at discharge anticipate transfer in 08/04 or 08/05 (13) Gross hematuria: Plan: Urology consultation and recommendations appreciated. acute uti with e coli, ceftriaxone culture shows sensitivity will treat for at least 7 days, no clinical signs of prostatitis last dose 08/09/2022 Plan Quarantine through August 03 then placement in SNF facility. Admission and Anticipated Discharge Date Admission Date: July 25, 2022 Subjective Patient is in good condition. He is without significant shortness of breath Dysuria has resolved urine culture shows E. coli. he continues to require oxygen supplementation titration is being accomplished Physical Exam Physical Exam: Physical exam finds him awake alert appropriate. His lungs continue to have decreased breath sounds at the bases without rales abdomen is obese NABS soft and now non tender Results & Data Results & Data ([facility]) Vital Signs (Past 12 Hours) Vital Signs Temp Pulse Pulse Resp BP BP Pulse Ox 08/03/22 08:16 98.1 F 73 21 142/84 H 95 08/02/22 21:55 89 08/03/22 03:03 98.1 F 71 18 134/68 94 08/02/22 23:03 97.7 F 68 18 157/77 H 96 O2 Del Method O2 Flow Rate 08/03/22 08:16 Nasal Cannula 3 08/02/22 21:55 08/03/22 03:03 Nasal Cannula 2 08/02/22 23:03 Nasal Cannula 2 Diagnostic Findings Chest x-ray ordered today shows no significant changes PG Care Time/CCT Total # of Minutes Spent Total Time Spent with Patient: Total time spent is greater than 50% in coordination of care (as documented) at patient's floor/unit and/or counseling patient: Coding Level of Care Code 02144 SUB INP/OBS CARE 2/35MIN Diagnoses COVID-19 U07.1 CHF (congestive heart failure) I50.9 Heart failure type: combined systolic and diastolic CAD, multiple vessel I25.10 Permanent atrial fibrillation I48.2 Chronic kidney disease, stage III (moderate) N18.3 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 (1) CHF (congestive heart failure) Heart failure type: combined systolic and diastolic (2) Atrial fibrillation Atrial fibrillation type: longstanding persistent Qualified Code(s): I48.11 - Longstanding persistent atrial fibrillation (3) Hypertension Hypertension type: essential hypertension Qualified Code(s): I10 - Essential (primary) hypertension
--- NOTE | 2022-08-03 08:42 | Pharmacy Report ---
Pharmacy Glycemic Short Note 2 - Date of Service August 03, 2022 - Glycemic Short BSG Results (Last 24 hours): 08/02/22 08/02/22 08/02/22 12:25 17:09 20:27 POC Glucose 256 H 126 H 153 H 08/03/22 07:56 POC Glucose 146 H OUTPATIENT ANTIDIABETIC REGIMEN: * Lantus 80 units bid, Novolog 65 units QID + SSI HbA1c 8.4% (06/16/22) ASSESSMENT: 08/03: * Patient received 62 units over the last 24 hours, 30 units basal, 32 units bolus. * CF/CR tightened yesterday when BSG rising breakfast to lunch, BSGs improved. * No changes needed in insulin orders at this time. * Per hospitalist, quarantine through Aug 03, then go to SNF 07/31: * Episode of hypoglycemia last evening (53 mg/dL), not completely unexpected given larger basal dose and discontinuation of steroids * Fasting BSG of 115 mg/dL this morning - will reduce basal today now that steroids are discontinued (~50-80% of yesterday's dose) * Again, prior admission data suggests increased insulin needs compared to current - will follow closely 07/30: * BSGs elevated yesterday, 125, 195, 270, and 292 mg/dL w/ fasting BSG of 103 mg/dL this morning * Received 93 units of insulin (45 units of Lantus, 15 units of NPH, and 33 units of Novolog) * Originally intended to d/c NPH and give all basal as Lantus with IV dexamethasone. However, IV dexamethasone was discontinued prior to AM administration today. Increased Lantus dose still given. Anticipating that this dose should be fine based on prior inpatient BSG data without steroids, as well as reported outpatient regimen. 07/29: * Patient's BSG dropped to 62 mg/dl at HS yesterday most likely since he received higher doses of Novolog for breakfast and lunch yesterday to cover for the high sugars at those times. * Basal NPH dose reduced from 25 units yesterday to 15 units today morning to prevent hypoglycemia later. This is to cover for the IV Dex 6 mg. * Continued basal Lantus the same in the AM since fasting BSG at goal = 125 mg/dl. Also continued basal Lantus at HS on a scale based on BSG. Yesterday he did not receive any basal at HS since he was hypoglycemic. * Novolog carb ratio was also loosened this morning. Background: * 81 year old admitted with increasing shortness of breath, COVID, confusion. PMHx significant for type 2 diabetes, CAD, CHF, CKD III * Patient received dose of dexamethasone 6 mg IV last evening - BSG at HS last night 201, unclear if patient did take Lantus last evening before coming into hospital therefore a dose of Lantus 30 units given overnight * Fasting BSG this morning 266 mg/dL - patient previously admitted and had been followed by glycemic service. Had been receiving ~40 units of basal/day and BSGs stable - will trial Lantus 20 units bid for this morning * Continues with dexamethasone 6 mg iv daily - will add NPH ~0.4 unit/kg daily to help provide coverage with steroids. PLAN FOR INPATIENT GLYCEMIC CONTROL: * Basal insulin * Lantus 20 units SC daily * Lantus 0-15 units SC HS * Bolus insulin * NovoLog per scale ACHS or Q6hrs while NPO * Goal Range: Low 110 mg/dL - High 140 mg/dL * Correction Factor: 15 mg/dL/unit * Nutritional / Prandial insulin per carb ratio of 1 unit per 6 grams CHO consumed
[2022-08-03] MEDS: cefTRIAXone SODIUM 2,000 MG in DEXTROSE 5% 50 ML IV SCH (11:40)
--- NOTE | 2022-08-03 12:09 | XRay Report ---
XR chest 1V portable CLINICAL HISTORY: persistent hypoxia and covid COMPARISON STUDY: Chest radiograph July 30, 2022. FINDINGS: Left subclavian pacer and median sternotomy wires are noted. Cardiomegaly is unchanged. No pneumothorax or pleural effusion is identified. Subtle interstitial thickening is noted. This may ref lect pulmonary vascular congestion. IMPRESSION: Cardiomegaly. No significant change in pulmonary vascular congestion without overt pulmon eric edema. ACT 112: Negative or not required by law. Electronically signed by: Shane Goins M.D. 08/03/2022 12:08 PM
[2022-08-03] MEDS: ATORVASTATIN 40 MG TAB PO SCH (20:44)
[2022-08-03] MEDS: MONTELUKAST SODIUM 10 MG TABLET PO SCH (20:46)
[2022-08-03] MEDS: RIVAROXABAN 15 MG TAB PO SCH (20:46)
[2022-08-03] MEDS: SENNA 8.6 MG TAB PO SCH (20:48)
[2022-08-04 07:44] LABS: BUN Creatinine Ratio 22.5 (10-20); Calcium 9.5 mg/dl (8.5-10.1); Creatinine Clr Calc Pharmacy 49.7 ml/min; Est GFR (African American) 52.9 ml/min; Est GFR (Non-African American) 45.7 ml/min; Potassium 3.8 mmol/L (3.5-5.1)
[2022-08-04] MEDS: INSULIN ASPART PER UNIT SC SCH ×4 (08:52→20:18)
[2022-08-04] MEDS: LANTUS PER UNIT CHARGE SQ SCH (08:53)
[2022-08-04] MEDS: lisinopril 2.5 MG TAB PO SCH (09:08)
[2022-08-04] MEDS: SPIRONOLACTONE 25 MG TAB PO SCH ×2 (09:08→20:14)
[2022-08-04] MEDS: cefTRIAXone SODIUM 2,000 MG in DEXTROSE 5% 50 ML IV SCH (09:08)
[2022-08-04] MEDS: POLYETHYLENE (MIRALAX) 17 GM PACK PO SCH (09:09)
[2022-08-04] MEDS: ASPIRIN 81 MG ECTAB PO SCH (09:09)
[2022-08-04] MEDS: guaiFENesin 600 MG TABCR PO SCH ×2 (09:09→20:16)
[2022-08-04] MEDS: METOPROLOL SUCC 50MG EXT REL TAB PO SCH (09:09)
[2022-08-04] MEDS: PANTOprazole 40 MG TAB PO SCH (09:09)
[2022-08-04] MEDS: GABAPENTIN 300 MG CAP PO SCH ×2 (09:09→20:17)
[2022-08-04] MEDS: DULoxetine HCL 60 MG CAP PO SCH (09:09)
[2022-08-04] MEDS: BUMETANIDE 1 MG TAB PO SCH ×2 (09:09→20:18)
[2022-08-04] MEDS: DOCUSATE SODIUM 100 MG CAP PO SCH ×2 (09:10→20:18)
--- NOTE | 2022-08-04 19:04 | Hospitalist Progress Note ---
Date of Service August 04, 2022 Assessment & Plan (1) COVID-19: Plan: acute covid pneumonia, improved, still with requirement of hs oxygen for hypoxia Patient is not initiated on dexamethasone remdesivir exam of lungs is not concerning for focal loss check CXR 08/03/22 without significant changes instructed caregiver to aggressively titrate oxygen down 08/04-patient still requires 2 L of oxygen Will time to titrate this before planned DC to longterm facility tomorrow (2) CHF (congestive heart failure): Plan: History of systolic CHF. Chronic. 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 Statin therapy chronic stable (8) Hypertension: Plan: chronic stable (9) Elevated troponin: Plan: acute self limited No evidence of acute coronary syndrome demand ischemia (10) Atrial fibrillation: Plan: Chronic. Continue current medications for rate control. Xarelto therapy was on hold due to gross hematuria, found to be secondary to E coli uti (11) Encephalopathy: Plan: acute self limited resolved Suspected metabolic encephalopathy present on admission due to COVID infection. plus uti poa, (12) Physical deconditioning: Plan: Continue physical therapy. SNF placement at discharge anticipate transfer in 08/04 or 08/05 (13) Gross hematuria: Plan: Urology consultation and recommendations appreciated. acute uti with e coli, ceftriaxone culture shows sensitivity will treat for at least 7 days, no clinical signs of prostatitis last dose 08/09/2022 Plan Quarantine through August 03 then placement in SNF facility. Admission and Anticipated Discharge Date Admission Date: July 25, 2022 Subjective Patient continues to require oxygen supplementation titration being done Physical Exam Physical Exam: Head and ENT no thyroid enlargement trachea midline Cardiovascular S1-S2 are normal no S3 Lungs bilateral air entry fair few scatted rhonchi Abdomen soft nondistended positive bowel sounds no rebound tenderness Extremity shows trace edema Neurologically no focal deficits Skin shows no rash no cyanosis Results & Data Results & Data ([facility]) Vital Signs (Past 12 Hours) Vital Signs Temp Pulse Pulse Pulse Pulse Resp BP 08/04/22 16:02 71 08/04/22 15:45 36.4 C L 62 20 08/04/22 11:20 36.8 C 65 18 08/04/22 13:50 36.5 C 90 71 71 18 141/78 H 08/04/22 11:42 08/04/22 07:30 36.5 C 71 18 BP Pulse Ox O2 Del Method O2 Flow Rate 08/04/22 16:02 08/04/22 15:45 155/63 H 97 Nasal Cannula 2 08/04/22 11:20 136/77 92 Nasal Cannula 2 08/04/22 13:50 92 08/04/22 11:42 Nasal Cannula 2 08/04/22 07:30 176/77 H 92 Nasal Cannula 2 PG Care Time/CCT Total # of Minutes Spent Total Time Spent with Patient: Total time spent is greater than 50% in coordination of care (as documented) at patient's floor/unit and/or counseling patient: Coding Level of Care Code 25210 SUB INP/OBS CARE 2/35MIN Diagnoses COVID-19 U07.1 CHF (congestive heart failure) I50.9 Heart failure type: combined systolic and diastolic CAD, multiple vessel I25.10 Permanent atrial fibrillation I48.2 Chronic kidney disease, stage III (moderate) N18.3 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 (1) CHF (congestive heart failure) Heart failure type: combined systolic and diastolic (2) Hypertension Hypertension type: essential hypertension Qualified Code(s): I10 - Essential (primary) hypertension (3) Atrial fibrillation Atrial fibrillation type: longstanding persistent Qualified Code(s): I48.11 - Longstanding persistent atrial fibrillation
[2022-08-04] MEDS: MONTELUKAST SODIUM 10 MG TABLET PO SCH (20:14)
[2022-08-04] MEDS: SENNA 8.6 MG TAB PO SCH (20:15)
[2022-08-04] MEDS: RIVAROXABAN 15 MG TAB PO SCH (20:15)
[2022-08-04] MEDS: ATORVASTATIN 40 MG TAB PO SCH (20:17)
[2022-08-05] MEDS: DULoxetine HCL 60 MG CAP PO SCH (07:49)
[2022-08-05] MEDS: GABAPENTIN 300 MG CAP PO SCH (07:50)
[2022-08-05] MEDS: BUMETANIDE 1 MG TAB PO SCH (07:50)
[2022-08-05] MEDS: PANTOprazole 40 MG TAB PO SCH (07:50)
[2022-08-05] MEDS: guaiFENesin 600 MG TABCR PO SCH (07:50)
[2022-08-05] MEDS: METOPROLOL SUCC 50MG EXT REL TAB PO SCH (07:50)
[2022-08-05] MEDS: SPIRONOLACTONE 25 MG TAB PO SCH (07:50)
[2022-08-05] MEDS: ASPIRIN 81 MG ECTAB PO SCH (07:50)
[2022-08-05] MEDS: lisinopril 2.5 MG TAB PO SCH (07:51)
[2022-08-05] MEDS: POLYETHYLENE (MIRALAX) 17 GM PACK PO SCH (07:51)
[2022-08-05] MEDS: DOCUSATE SODIUM 100 MG CAP PO SCH (07:52)
[2022-08-05] MEDS: cefTRIAXone SODIUM 2,000 MG in DEXTROSE 5% 50 ML IV SCH (08:10)
[2022-08-05] MEDS: INSULIN ASPART PER UNIT SC SCH ×2 (08:50→12:28)
[2022-08-05] MEDS: LANTUS PER UNIT CHARGE SQ SCH (08:51)
--- NOTE | 2022-08-05 23:23 | Discharge Summary ---
Date of Service August 05, 2022 Principal Diagnosis Acute COVID-pneumonia Discharge Exam Head and ENT no thyroid enlargement trachea midline Cardiovascular S1-S2 are normal no S3 Lungs bilateral air entry fair few scatted rhonchi Abdomen soft nondistended positive bowel sounds no rebound tenderness Extremity shows trace edema Neurologically no focal deficits Skin shows no rash no cyanosis Discharge Data Allergies Allergy/AdvReac Type Severity Reaction Status Date / Time No Known Allergies Allergy Verified 07/15/22 08:41 Consultations 07/24/22 23:15 ED Decision to Admit Stat 07/31/22 08:47 Consult Urology Routine Ordered Studies 07/24/22 21:08 CT head/brain wo con Stat Hospital Course (1) COVID-19: acute covid pneumonia, improved, still with requirement of hs oxygen for hypoxia Patient is not initiated on dexamethasone remdesivir exam of lungs is not concerning for focal loss check CXR 08/03/22 without significant changes instructed caregiver to aggressively titrate oxygen down 08/04-patient still requires 2 L of oxygen Will time to titrate this before planned DC to custodial facility tomorrow (2) CHF (congestive heart failure): History of systolic CHF. Chronic. 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 Statin therapy chronic stable (8) Hypertension: chronic stable (9) Elevated troponin: acute self limited No evidence of acute coronary syndrome demand ischemia (10) Atrial fibrillation: Chronic. Continue current medications for rate control. Xarelto therapy was on hold due to gross hematuria, found to be secondary to E coli uti (11) Encephalopathy: acute self limited resolved Suspected metabolic encephalopathy present on admission due to COVID infection. plus uti poa, (12) Physical deconditioning: Continue physical therapy. SNF placement at discharge anticipate transfer in 08/04 or 08/05 (13) Gross hematuria: Urology consultation and recommendations appreciated. acute uti with e coli, ceftriaxone culture shows sensitivity will treat for at least 7 days, no clinical signs of prostatitis last dose 08/09/2022 Plan Quarantine through August 03 then placement in SNF facility. Total Time Total Time Spent Total Time Spent (In Minutes): 45 Discharge Plan Discharge Items Patient Disposition: Transfer Snf Fac Reason For Visit: SOB, CONFUSION Discharge Diagnosis: acute covid pneumonia Activity: Per Instructions section Lifting: Wait until after follow-up appointment Non-emergency contact: Primary Care Provider Call non-emergency contact if: you have any medication questions, your symptoms worsen, your pain is not controlled, your pain is worsening, your pain is unusual for you, your pain is concerning for you, you have a fever, your rectal temperature is above 100.4, your temperature is above 101, your temperature is above 101.5, your wound has increased redness, your wound has increased drainage and your wound pain has increased Follow-up/Referrals: Tere Narayan MD [Primary Care Provider] - Diet: Heart Healthy Addtl Attending Provider Instructions: f/u pcp 3 days Pending Studies at Discharge: No Stand-Alone Forms: [employer] Education, Smoking Cessation Skilled Items Patient informed of condition?: Yes DNR: Yes Discharge Level of Care: Skilled Communicable Disease: Yes Discharge Prognosis: Stable Lines: None Urinary Catheter: No Medications and DC Order Prescriptions: New guaifenesin [Mucinex] 600 mg Tablet Extended Release 12hr 1,200 mg PO Q12 Qty: 14 0RF Continued gabapentin 300 mg capsule 600 mg PO BID Qty: 360 3RF duloxetine 60 mg capsule,delayed release(DR/EC) 60 mg PO QAM Qty: 90 3RF metoprolol succinate 100 mg tablet extended release 24 hr 100 mg PO QAM Qty: 90 3RF montelukast 10 mg tablet 10 mg PO HS Qty: 90 3RF (DME) insulin syringe-needle U-100 [BD Insulin Syringe Ultra-Fine] 1 mL 31 gauge x 5/16 syringe See Rx Instructions .ROUTE .MEDSUPPLY Qty: 600 3RF Rx Instructions: use 6 x daily to inject insulin Xarelto 15 mg tablet 15 mg PO QPM Qty: 90 3RF spironolactone 25 mg tablet 25 mg PO BID Qty: 180 3RF Hold Instructions: Hyperkalemia cholecalciferol (vitamin D3) 50 mcg (2,000 unit) capsule 4,000 unit PO QAM pantoprazole 20 mg tablet,delayed release (DR/EC) 20 mg PO QAM Qty: 90 3RF atorvastatin 80 mg tablet 80 mg PO HS Qty: 90 3RF (DME) Dexcom G6 Sensor Device See Rx Instructions .ROUTE .MEDSUPPLY Qty: 3 Rx Instructions: As directed (DME) Dexcom G6 Transmitter Device See Rx Instructions .ROUTE .MEDSUPPLY Qty: 1 Rx Instructions: As directed (DME) Dexcom G6 Loin Puller Misc See Rx Instructions .ROUTE .MEDSUPPLY Qty: 1 Rx Instructions: As directed (DME) FreeStyle Lite Strips Strip See Rx Instructions .ROUTE .MEDSUPPLY Rx Instructions: TEST 1 TIMES DAILY nitroglycerin [Nitrostat] 0.4 mg tablet, sublingual 0.4 mg Sublingual Q5M PRN (Reason: Chest Pain) Rx Instructions: NEEDED FOR CHEST PAIN : ONE TABLET UNDER THE TONGUE EVERY 5 MINUTES UP TO 3 DOSES. aspirin 81 mg Tablet,Delayed Release (Dr/Ec) 81 mg PO QAM fenofibrate 54 mg tablet 54 mg PO HS ketoconazole 2 % cream 1 applic topical DAILY PRN (Reason: Rash) sennosides [Senokot] 8.6 mg Tablet 17.2 mg PO HS Qty: 0 0RF docusate sodium 100 mg Capsule 100 mg PO BID Qty: 0 0RF lisinopril 5 mg tablet 2.5 mg PO QAM Qty: 90 3RF Discontinued Lantus U-100 Insulin 100 unit/mL solution 80 unit subcut BID Qty: 150 1RF Rx Instructions: PLUS SLIDING SCALE insulin aspart U-100 [Novolog U-100 Insulin aspart] 100 unit/mL solution See Rx Instructions .ROUTE .COMPLEX Qty: 280 3RF Dose Instruction: INJECT 65 UNITS UNDER THE SKIN FOUR TIMES A DAY PLUS SLIDING SCALE, MAXIMUM DAILY DOSE: 300 UNITS Rx Instructions: INJECT 65 UNITS UNDER THE SKIN FOUR TIMES A DAY PLUS SLIDING SCALE, MAXIMUM DAILY DOSE: 300 UNITS bumetanide 1 mg tablet 2 mg PO BID Qty: 360 3RF Hold Instructions: Pt rpts no RF at pharm - last dose ~ 01/21/21. Now lasix Discharge Orders: Discharge Order (Routine); Ordered 08/05/22 Ordered By: Gallito Crowder Admission Data Admit Date/Time: 07/25/22 00:32 Attending Provider: Gallito Crowder Admit Provider: Taylor Fowler Primary Care Provider: Tere Narayan Other Providers: Taylor Fowler ; [facility] ; Franklin Espinoza ; Trevon Shankar ; Humza Lemons ; Polly Peters ; Aleks Ramos ; Fay Scanlon ; Veronica De La Fuente ; [place] ; Mayte Barfield ; Katy Amato ; Eddie Abbott ; Ari De La Vega Other Interventions: Discharge Summary Assessment (RN) Last Done: 08/05/22 14:00 Coding Level of Care Code HOSP INP/OBS DISCH >30 MIN Diagnoses COVID-19 U07.1 CHF (congestive heart failure) I50.9 Heart failure type: combined systolic and diastolic CAD, multiple vessel I25.10 Permanent atrial fibrillation I48.2 Chronic kidney disease, stage III (moderate) N18.3 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
== END 2022-08-05 15:12 | DRG 177 ==
LOC: ED 20:50 → 2S 07-25 00:32 → SUATTDRO 07-25 00:32 → 2S 07-25 02:19 → 2N 07-31 22:56

== ENCOUNTER 2022-10-01 16:52 | Inpatient (IN) ==
--- NOTE | 2022-10-01 17:33 | Emergency Department Note ---
Impression & Plan Acute alteration in mental status, Hypoglycemia, Hypoxia, Acute metabolic encephalopathy, Acute respiratory acidosis, Hypothermia, COVID-19 ED Provider Note NAME: SANDY VELOZ AGE: 81 SEX: M : 1940 ARRIVES VIA: Ambulance INFORMANT: Patient, EMS ED PROVIDER(S): Vadim Mathis DO CHIEF COMPLAINT: Altered mental status HPI: Patient is an 81-year-old male who presented to the emergency department for an evaluation of altered mental status. The patient arrived via EMS. At this point history was obtained only from the EMS. The family is still on route. According to the EMS personnel the patient was having frequent falls recently. There is been no reported chest pain or difficulty breathing but the patient was found to be hypoxic as well as hypoglycemic. He was treated for the hypoglycemia prior to arrival and has had multiple blood sugar measurements since that time which are not low. There is been no reported hemoptysis. The patient was found to be hypothermic upon arrival. ROS: See above HPI for pertinent positives & negatives. A total of 10 systems reviewed and were otherwise negative. PAST MEDICAL HISTORY: See Below PAST SURGICAL HISTORY: See Below FAMILY HISTORY: See Below SOCIAL HISTORY: See Below HOME MEDICATIONS: See Below ALLERGIES: See Below VITALS: See Below PHYSICAL EXAMINATION: GENERAL: The patient is listless. He falls asleep quickly when not being stimulated. EYES: The conjunctivae are clear. The pupils are round and reactive. EARS, NOSE, MOUTH AND THROAT: The nose is without any evidence of any deformity. Mucous membranes are dry. NECK: The neck is nontender and supple. RESPIRATORY: Shallow respirations were noted. Diminished breath sounds are noted throughout. CARDIOVASCULAR: Irregular heart sounds were noted to auscultation. No definite murmur was noted. GASTROINTESTINAL: The abdomen is soft. Abdomen is nontender. MUSCULOSKELETAL/EXTREMITIES: There is no evidence of gross deformity full range of motion is noted in the hips and shoulders. SKIN: Skin is cool and dry. There is pedal edema bilaterally. The right leg is more swollen than the left NEUROLOGIC: The patient is awake to verbal commands. He does answer questions appropriately. He is not oriented to place or time. Computer Tape Librarian strength is symmetric but diminished bilaterally MEDICAL DECISION MAKING: The patient is an 81-year-old male who presented to the emergency department for an evaluation of altered mental status. Patient is a history of diabetes. He was recently discharged from an assisted. The patient is living at home alone. This is against the wishes of his family members. They last saw him yesterday. The patient was found on the floor today. He was altered and was found of hypoglycemia. The patient was treated with dextrose. He was reevaluated multiple times. His blood sugar did improve but his mental status w as still poor. He was found to have respiratory acidosis which may be causing his altered mental status. He was reevaluated multiple times. I discussed the patient's condition with his patient daughters. I also discussed his condition with the on-call [facility] hospitalist. They have agreed to evaluate the patient in the emergency department for further management and disposition. The patient was treated with heated air blanket. Triage Nursing notes reviewed. Prior medical records reviewed Vital Signs: reviewed and remarkable for hypothermia and hypotension Differential diagnosis: Infection, hypoglycemia, electrolyte abnormalities, overdose, toxicologic, cardiac sources, intracerebral event, neurologic, trauma, as well as other pathologies. ER treatment provided: See below Diagnostics interpreted by me: ECG: EKG was obtained in the emergency department. My interpretation is atrial fibrillation at 83 bpm. Left bundle branch block pattern was noted. There were no obvious PVCs. This was compared to a tracing from July 24, 2022. No significant changes were noted Cardiac Monitoring: An order was placed for continuous cardiac monitoring. The monitor shows a rate of 82 bpm with atrial fibrillation. Laboratory studies: As stated above and show below. Imaging studies: See below. Radiographic imaging was reviewed by myself Consultation(s): I discussed this case with Dr. Hernández who is on-call for the [facility] group. I discussed this case with Dr. Fowler who is on-call for the [facility] group. ED COURSE: Procedures: none Critical Care: I have personally spent greater than 45 minutes of critical care time in the direct management of this patient. This includes bedside care, interpretation of diagnostic studies, and testing, discussion with consultants, patient, and family members, and other required patient management activities. This 45 minutes is in excess of all separately billable procedures. Past Med/Surg History Medical History Anxiety Atrial fibrillation Reason for Xarelto Follows with [facility] C4 cervical fracture No surgical intervention. Full ROM. Occurred 2-3 years ago- no current issues CAD (coronary artery disease) S/p RCA PCI in 1991, 1998, and 2004- totaling 5 stents to prox and mid RCA S/p 3 vessel CABG 2008 CAD, multiple vessel Cardiomyopathy Carotid artery stenosis, asymptomatic No hemodynamically significant stenosis per 2019 CTA of neck to ICAs bilaterally CHF (congestive heart failure) CHF (congestive heart failure) CHF (congestive heart failure) Chronic kidney disease, stage III (moderate) CKD (chronic kidney disease) COVID-19 COVID-19 Depression DM type 2 (diabetes mellitus, type 2) IDDM Dyslipidemia Dysphagia Occasional (per ) Elevated troponin Encephalopathy Enlarged prostate without lower urinary tract symptoms (luts) Gastroparesis GERD (gastroesophageal reflux disease) Well controlled and stable Gross hematuria Hearing deficit NOME History of traumatic brain injury 2018 (after fall down stairs) > subdural hematoma resolved without surgical intervention, no residual issues Hyperlipidemia Hypertension Hypertension ICD (implantable cardioverter-defibrillator) in place [employer]tr[employer]. Implanted ~2017 for sustained VT Insomnia LBBB (left bundle branch block) Chronic dating back to at least 07/2019 EKG per charts PAD (peripheral artery disease) H/o of right SFA/TP trunk/PT angioplasty at [facility] (2011) Peripheral neuropathy Permanent atrial fibrillation Physical deconditioning Poor historian Sensorineural hearing loss of both ears Situational depression Sleep apnea Refuses device per records Spinal stenosis Subdural hematoma 2017 (after fall down stairs) > subdural hematoma resolved without surgical intervention, no residual issues 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, with long-term current use of insulin UTI (urinary tract infection) Venous insufficiency Surgical History History of anesthesia reaction Combative with emergence History of back surgery History of cardiac cath Multiple (hx stents) History of cataract surgery R/L History of cholecystectomy History of colonoscopy History of knee replacement Left Hx of angioplasty Hx of CABG CABG x3 (2008) S/P epidural steroid injection S/P ICD (internal cardiac defibrillator) procedure Family History Daughter Family history of reaction to anesthesia PONV Sister Cancer Father Family history of diabetes mellitus Grandmother (Maternal) Family history of diabetes mellitus Other No significant family history Denies family history of Ovarian cancer Prostate cancer Coronary heart disease Breast cancer Colorectal cancer Social History Smoking Status: Unknown if ever smoked Tobacco Type: Cigarettes Age Started Using Tobacco: 19; Age Quit Using Tobacco: 49; packs per day: 2; Second Hand Exposure: Yes (SPOUSE SMOKES (OUTSIDE)); Hx Alcohol Use: No Hx Substance Use: No Preferred Language: Citizen Of [place] Communication Ability: Impaired Visual Impairment: Limited Hearing Ability: Hard of Hearing Historical Interpreter Required: No Beliefs That Will Affect Care: None marital status: Current Living Situation: Spouse current occupational status: retired 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 How many Children do You have: 6 Feels Safe at Home: Yes Childhood Exposure to Second-Hand Smoke: Yes caffeine: No during the past year weight has: remained stable Dental Care, Regularly: Yes Physical Activity Frequency: Does not Exercise Seatbelt Use: never Sunscreen Use: No Assistive Devices: Cane and Walker Allergies Allergies Allergy/AdvReac Type Severity Reaction Status Date / Time No Known Allergies Allergy Verified 08/25/22 21:34 Home Meds Home Medications Medication Instructions Recorded Confirmed aspirin 81 mg tablet,delayed 81 mg PO QAM 06/04/18 08/25/22 release nitroglycerin 0.4 mg sublingual 0.4 mg sublingual Q5M PRN Chest 02/25/19 08/25/22 tablet (Nitrostat) Pain cholecalciferol (vitamin D3) 50 4,000 unit PO QAM 04/22/20 08/25/22 mcg (2,000 unit) capsule blood-glucose meter,continuous #1 ea 11/10/20 08/25/22 (Dexcom G6 Assortment Planner) blood-glucose sensor (Dexcom G6 #3 ea 11/10/20 08/25/22 Sensor device) blood-glucose transmitter (Dexcom #1 ea 11/10/20 08/25/22 G6 Transmitter device) blood sugar diagnostic (FreeStyle 12/01/21 08/25/22 Lite Strips) ketoconazole 2 % topical cream 1 applic topical DAILY PRN Rash 01/04/22 08/25/22 rivaroxaban 15 mg tablet (Xarelto) 15 mg PO QPM 08/15/22 08/25/22 bumetanide 1 mg tablet 1 mg PO DAILY 08/25/22 08/25/22 insulin glargine 100 unit/mL (3 See Rx Instructions subcut BID 08/25/22 08/25/22 mL) subcutaneous pen (Lantus Solostar U-100 Insulin) Previous Rx's Medication Instructions Recorded atorvastatin 80 mg tablet 80 mg PO HS #90 tabs 03/19/22 pantoprazole 20 mg tablet,delayed 20 mg PO QAM #90 tabs 03/19/22 release insulin syringe-needle U-100 1 mL #600 ea 04/07/22 31 gauge x 5/16" (BD Insulin Syringe Ultra-Fine) docusate sodium 100 mg capsule 100 mg PO BID #0 caps 05/02/22 lisinopril 5 mg tablet 2.5 mg PO QAM #90 tabs 05/02/22 sennosides 8.6 mg tablet (Senokot) 17.2 mg PO HS #0 tabs 05/02/22 spironolactone 25 mg tablet 25 mg PO BID #180 tabs 06/07/22 guaifenesin 600 mg tablet, 1,200 mg PO Q12 #14 tabs 08/05/22 extended release 12 hr (Mucinex) gabapentin 300 mg capsule 600 mg PO BID #360 caps 09/13/22 duloxetine 60 mg capsule,delayed 60 mg PO QAM #90 caps 09/19/22 release metoprolol succinate 100 mg 100 mg PO QAM #90 tabs 09/19/22 tablet,extended release 24 hr montelukast 10 mg tablet 10 mg PO HS #90 tabs 09/19/22 fenofibrate 54 mg tablet 54 mg PO HS #90 tabs 09/27/22 Results & Data (ED) Vital Signs Vital Signs - 24 hr 10/01/22 16:39 10/01/22 16:57 10/01/22 16:57 Temperature 33.9 C L Temperature Source Rectal Pulse Rate 85 94 H Pulse Rate from SpO2 Sensor Respiratory Rate 23 20 Respiratory Effort / Characteristics Spontaneous Respiratory Depth Normal Respiratory Pattern Regular Blood Pressure 158/80 H Blood Pressure Mean 106 Pulse Oximetry 90 88 L 93 Oxygen Delivery Method Oxymask Oxymask Oxymask Oxygen Flow Rate 5 0 5 Fraction of Inspired Oxygen Sepsis New/Unexplained Change in Mental Status Yes Sepsis Action Taken by Nursing Physician Notified Oxygen Flow Rate - Titration 5 Pulse Oximetry Post Tiitration 93 10/01/22 18:29 10/01/22 17:00 10/01/22 17:00 Temperature Temperature Source Pulse Rate 81 81 Pulse Rate from SpO2 Sensor 83 Respiratory Rate 18 19 Respiratory Effort / Characteristics Non-Labored Respiratory Depth Normal Respiratory Pattern Regular Blood Pressure 130/67 Blood Pressure Mean 88 Pulse Oximetry 98 90 Oxygen Delivery Method Oxygen Flow Rate Fraction of Inspired Oxygen 60 Sepsis New/Unexplained Change in Mental Status Sepsis Action Taken by Nursing Oxygen Flow Rate - Titration Pulse Oximetry Post Tiitration 10/01/22 17:15 10/01/22 17:19 10/01/22 17:19 Temperature Temperature Source Pulse Rate 85 70 Pulse Rate from SpO2 Sensor 86 79 Respiratory Rate 17 18 Respiratory Effort / Characteristics Respiratory Depth Respiratory Pattern Blood Pressure 158/80 H Blood Pressure Mean 106 Pulse Oximetry 95 94 Oxygen Delivery Method Oxymask Oxygen Flow Rate 5 Fraction of Inspired Oxygen Sepsis New/Unexplained Change in Mental Status Sepsis Action Taken by Nursing Oxygen Flow Rate - Titration Pulse Oximetry Post Tiitration 10/01/22 17:25 10/01/22 17:25 10/01/22 17:30 Temperature Temperature Source Pulse Rate 78 Pulse Rate from SpO2 Sensor 78 82 Respiratory Rate 17 Respiratory Effort / Characteristics Respiratory Depth Respiratory Pattern Blood Pressure 131/72 Blood Pressure Mean 91 Pulse Oximetry 93 94 Oxygen Delivery Method Oxygen Flow Rate Fraction of Inspired Oxygen Sepsis New/Unexplained Change in Mental Status Sepsis Action Taken by Nursing Oxygen Flow Rate - Titration Pulse Oximetry Post Tiitration 10/01/22 17:45 10/01/22 18:00 10/01/22 18:00 Temperature Temperature Source Pulse Rate 84 90 Pulse Rate from SpO2 Sensor 81 88 Respiratory Rate 18 18 Respiratory Effort / Characteristics Respiratory Depth Respiratory Pattern Blood Pressure 174/108 H Blood Pressure Mean 130 Pulse Oximetry 93 93 Oxygen Delivery Method Oxygen Flow Rate Fraction of Inspired Oxygen Sepsis New/Unexplained Change in Mental Status Sepsis Action Taken by Nursing Oxygen Flow Rate - Titration Pulse Oximetry Post Tiitration 10/01/22 18:15 10/01/22 18:16 10/01/22 18:16 Temperature Temperature Source Pulse Rate 86 77 Pulse Rate from SpO2 Sensor 87 83 Respiratory Rate 21 20 Respiratory Effort / Characteristics Respiratory Depth Respiratory Pattern Blood Pressure 169/99 H Blood Pressure Mean 122 Pulse Oximetry 94 95 Oxygen Delivery Method Oxygen Flow Rate Fraction of Inspired Oxygen Sepsis New/Unexplained Change in Mental Status Sepsis Action Taken by Nursing Oxygen Flow Rate - Titration Pulse Oximetry Post Tiitration 10/01/22 18:30 10/01/22 18:32 10/01/22 18:32 Temperature Temperature Source Pulse Rate 82 81 Pulse Rate from SpO2 Sensor 77 81 Respiratory Rate 18 21 Respiratory Effort / Characteristics Respiratory Depth Respiratory Pattern Blood Pressure 177/72 H Blood Pressure Mean 107 Pulse Oximetry 97 97 Oxygen Delivery Method BiPAP Oxygen Flow Rate Fraction of Inspired Oxygen Sepsis New/Unexplained Change in Mental Status Sepsis Action Taken by Nursing Oxygen Flow Rate - Titration Pulse Oximetry Post Tiitration 10/01/22 18:45 10/01/22 18:45 10/01/22 19:00 Temperature Temperature Source Pulse Rate 82 Pulse Rate from SpO2 Sensor 54 L Respiratory Rate 19 Respiratory Effort / Characteristics Respiratory Depth Respiratory Pattern Blood Pressure 175/131 H 174/97 H Blood Pressure Mean 145 122 Pulse Oximetry 95 Oxygen Delivery Method Oxygen Flow Rate Fraction of Inspired Oxygen Sepsis New/Unexplained Change in Mental Status Sepsis Action Taken by Nursing Oxygen Flow Rate - Titration Pulse Oximetry Post Tiitration 10/01/22 19:00 Temperature Temperature Source Pulse Rate 82 Pulse Rate from SpO2 Sensor 77 Respiratory Rate 24 Respiratory Effort / Characteristics Respiratory Depth Respiratory Pattern Blood Pressure Blood Pressure Mean Pulse Oximetry 96 Oxygen Delivery Method Oxygen Flow Rate Fraction of Inspired Oxygen Sepsis New/Unexplained Change in Mental Status Sepsis Action Taken by Nursing Oxygen Flow Rate - Titration Pulse Oximetry Post Tiitration Home Medications Current Medication List: was personally reviewed by me Laboratory Data Attestation: I reviewed the patient's lab results. 10/01/22 17:06 10/01/22 17:06 Lab Results 10/01/22 10/01/22 10/01/22 Range/Units 17:04 17:06 17:06 WBC 12.71 H (4.8-10.8) K/ul RBC 4.83 (4.70-6.10) M/uL Hgb 14.3 (14.0-18.0) g/dl Hct 44.5 (42.0-52.0) % MCV 92.1 (80.0-100.0) fL MCH 29.6 (25.0-34.0) pg MCHC 32.1 (32.0-36.0) g/dL RDW Std Deviation 55.2 H (36.4-46.3) fL RDW Coeff of Paulo 16.4 H (11.5-14.5) % Plt Count 413 H (130-400) K/uL MPV 10.5 (9.4-12.4) fL Immature Gran % (Auto) 0.4 % Neut % (Auto) 81.5 % Lymph % (Auto) 6.6 % Mckean % (Auto) 10.6 % Eos % (Auto) 0.3 % Baso % (Auto) 0.6 % Neut # (Auto) 10.36 H (1.40-6.50) K/uL Lymph # (Auto) 0.84 L (1.2-3.4) K/uL Mckean # (Auto) 1.35 H (0.11-0.59) K/uL Eos # (Auto) 0.04 (0-0.50) K/uL Baso # (Auto) 0.07 (0-0.2) K/uL Immature Gran # (Auto) 0.05 (0.01-0.20) K/uL PT (9.0-12.0) Seconds INR (0.9-1.1) APTT (21.0-31.0) Seconds PTT Ratio D-Dimer (0-500) ug/L FEU ABG pH (7.35-7.45) ABG pCO2 (35-46) mmHg ABG pO2 (80-95) mmHg ABG HCO3 (19-24) mmol/L ABG O2 Saturation (90-95) % ABG Base Excess (-9-1.8) mEq/L Jeffrey Test (Pos) VBG pH (7.36-7.41) VBG pCO2 (38-50) mmHg VBG pO2 mmHg VBG HCO3 mmol/L VBG O2 Saturation % VBG Base Excess mEq/L Oxygen Given Sodium 139 (136-145) mmol/L Potassium 3.8 (3.5-5.1) mmol/L Chloride 94 L (98-107) mmol/L Carbon Dioxide 39 H (21-32) mmol/L Anion Gap 6 (3-11) BUN 25 H (6-23) mg/dl Creatinine 1.51 H (0.6-1.4) mg/dl Est Cr Clr Drug Dosing 47.6 ml/min Est GFR ( Amer) 49.1 ml/min Est GFR (Non-Af Amer) 42.4 ml/min BUN/Creatinine Ratio 16.6 (10-20) Glucose 84 (70-99(Fasting)) mg/dl POC Glucose 98 (70-99) mg/dl Lactate (0.4-2.0) mmol/L Calcium 9.8 (8.6-10.3) mg/dl Magnesium 2.1 (1.7-2.4) mg/dl Total Bilirubin 0.8 (0.2-1.0) mg/dl Direct Bilirubin 0.2 (0-0.2) mg/dl AST 16 (13-39) U/L ALT 9 (7-52) U/L Alkaline Phosphatase 82 (34-104) U/L Ammonia (18-72) umol/L Troponin I High Sens 27.3 H (0-20) pg/ml Total Protein 8.2 (6.0-8.3) gm/dl Albumin 4.1 (3.4-5.0) gm/dl Procalcitonin (0-0.5) ng/ml TSH (0.300-4.500) uIu/ml Urine Color Urine Appearance (Clear) Urine pH (4.5-7.5) Ur Specific Pruden (1.000-1.030) Urine Protein (Negative) Urine Glucose (UA) (Negative) Urine Ketones (Negative) Urine Blood (Negative) Urine Nitrite (Negative) Urine Bilirubin (Negative) Urine Urobilinogen (Negative) Ur Leukocyte Esterase (Negative) Urine WBC (Auto) (0-5) /hpf Urine RBC (Auto) (0-4) /hpf U Hyaline Cast (Auto) (0-5) /lpf U Epithel Cells (Auto) (0-5) /lpf Urine Bacteria (Auto) (Negative) Urine Opiates Screen (Neg) Ur Methadone, Qual (Neg) Urine Barbiturates (Neg) Ur Phencyclidine (PCP) (Neg) U Amphetamin/Meth Scrn (Neg) MDMA (Ecstasy) Screen (Neg) U Benzodiazepines Scrn (Neg) Ur Cocaine Metabolite (Neg) U Marijuana (THC) Screen (Neg) Ethyl Alcohol mg/dL (<10.0) mg/dl SARS-CoV-2 (PCR) (Negative) Influenza Type A (PCR) (Neg) Influenza Type B (PCR) (Neg) RSV (RT-PCR) (Neg) 10/01/22 10/01/22 10/01/22 Range/Units 17:06 17:06 17:06 WBC (4.8-10.8) K/ul RBC (4.70-6.10) M/uL Hgb (14.0-18.0) g/dl Hct (42.0-52.0) % MCV (80.0-100.0) fL MCH (25.0-34.0) pg MCHC (32.0-36.0) g/dL RDW Std Deviation (36.4-46.3) fL RDW Coeff of Paulo (11.5-14.5) % Plt Count (130-400) K/uL MPV (9.4-12.4) fL Immature Gran % (Auto) % Neut % (Auto) % Lymph % (Auto) % Mckean % (Auto) % Eos % (Auto) % Baso % (Auto) % Neut # (Auto) (1.40-6.50) K/uL Lymph # (Auto) (1.2-3.4) K/uL Mckean # (Auto) (0.11-0.59) K/uL Eos # (Auto) (0-0.50) K/uL Baso # (Auto) (0-0.2) K/uL Immature Gran # (Auto) (0.01-0.20) K/uL PT 12.0 (9.0-12.0) Seconds INR 1.1 (0.9-1.1) APTT 33.0 H (21.0-31.0) Seconds PTT Ratio 1.2 D-Dimer 1120 H* (0-500) ug/L FEU ABG pH (7.35-7.45) ABG pCO2 (35-46) mmHg ABG pO2 (80-95) mmHg ABG HCO3 (19-24) mmol/L ABG O2 Saturation (90-95) % ABG Base Excess (-9-1.8) mEq/L Jeffrey Test (Pos) VBG pH (7.36-7.41) VBG pCO2 (38-50) mmHg VBG pO2 mmHg VBG HCO3 mmol/L VBG O2 Saturation % VBG Base Excess mEq/L Oxygen Given Sodium (136-145) mmol/L Potassium (3.5-5.1) mmol/L Chloride (98-107) mmol/L Carbon Dioxide (21-32) mmol/L Anion Gap (3-11) BUN (6-23) mg/dl Creatinine (0.6-1.4) mg/dl Est Cr Clr Drug Dosing ml/min Est GFR ( Amer) ml/min Est GFR (Non-Af Amer) ml/min BUN/Creatinine Ratio (10-20) Glucose (70-99(Fasting)) mg/dl POC Glucose (70-99) mg/dl Lactate 1.6 (0.4-2.0) mmol/L Calcium (8.6-10.3) mg/dl Magnesium (1.7-2.4) mg/dl Total Bilirubin (0.2-1.0) mg/dl Direct Bilirubin (0-0.2) mg/dl AST (13-39) U/L ALT (7-52) U/L Alkaline Phosphatase (34-104) U/L Ammonia (18-72) umol/L Troponin I High Sens (0-20) pg/ml Total Protein (6.0-8.3) gm/dl Albumin (3.4-5.0) gm/dl Procalcitonin 0.09 (0-0.5) ng/ml TSH (0.300-4.500) uIu/ml Urine Color Urine Appearance (Clear) Urine pH (4.5-7.5) Ur Specific Pruden (1.000-1.030) Urine Protein (Negative) Urine Glucose (UA) (Negative) Urine Ketones (Negative) Urine Blood (Negative) Urine Nitrite (Negative) Urine Bilirubin (Negative) Urine Urobilinogen (Negative) Ur Leukocyte Esterase (Negative) Urine WBC (Auto) (0-5) /hpf Urine RBC (Auto) (0-4) /hpf U Hyaline Cast (Auto) (0-5) /lpf U Epithel Cells (Auto) (0-5) /lpf Urine Bacteria (Auto) (Negative) Urine Opiates Screen (Neg) Ur Methadone, Qual (Neg) Urine Barbiturates (Neg) Ur Phencyclidine (PCP) (Neg) U Amphetamin/Meth Scrn (Neg) MDMA (Ecstasy) Screen (Neg) U Benzodiazepines Scrn (Neg) Ur Cocaine Metabolite (Neg) U Marijuana (THC) Screen (Neg) Ethyl Alcohol mg/dL (<10.0) mg/dl SARS-CoV-2 (PCR) (Negative) Influenza Type A (PCR) (Neg) Influenza Type B (PCR) (Neg) RSV (RT-PCR) (Neg) 10/01/22 10/01/22 10/01/22 Range/Units 17:06 17:06 17:20 WBC (4.8-10.8) K/ul RBC (4.70-6.10) M/uL Hgb (14.0-18.0) g/dl Hct (42.0-52.0) % MCV (80.0-100.0) fL MCH (25.0-34.0) pg MCHC (32.0-36.0) g/dL RDW Std Deviation (36.4-46.3) fL RDW Coeff of Paulo (11.5-14.5) % Plt Count (130-400) K/uL MPV (9.4-12.4) fL Immature Gran % (Auto) % Neut % (Auto) % Lymph % (Auto) % Mckean % (Auto) % Eos % (Auto) % Baso % (Auto) % Neut # (Auto) (1.40-6.50) K/uL Lymph # (Auto) (1.2-3.4) K/uL Mckean # (Auto) (0.11-0.59) K/uL Eos # (Auto) (0-0.50) K/uL Baso # (Auto) (0-0.2) K/uL Immature Gran # (Auto) (0.01-0.20) K/uL PT (9.0-12.0) Seconds INR (0.9-1.1) APTT (21.0-31.0) Seconds PTT Ratio D-Dimer (0-500) ug/L FEU ABG pH (7.35-7.45) ABG pCO2 (35-46) mmHg ABG pO2 (80-95) mmHg ABG HCO3 (19-24) mmol/L ABG O2 Saturation (90-95) % ABG Base Excess (-9-1.8) mEq/L Jeffrey Test (Pos) VBG pH (7.36-7.41) VBG pCO2 (38-50) mmHg VBG pO2 mmHg VBG HCO3 mmol/L VBG O2 Saturation % VBG Base Excess mEq/L Oxygen Given Sodium (136-145) mmol/L Potassium (3.5-5.1) mmol/L Chloride (98-107) mmol/L Carbon Dioxide (21-32) mmol/L Anion Gap (3-11) BUN (6-23) mg/dl Creatinine (0.6-1.4) mg/dl Est Cr Clr Drug Dosing ml/min Est GFR ( Amer) ml/min Est GFR (Non-Af Amer) ml/min BUN/Creatinine Ratio (10-20) Glucose (70-99(Fasting)) mg/dl POC Glucose 180 H (70-99) mg/dl Lactate (0.4-2.0) mmol/L Calcium (8.6-10.3) mg/dl Magnesium (1.7-2.4) mg/dl Total Bilirubin (0.2-1.0) mg/dl Direct Bilirubin (0-0.2) mg/dl AST (13-39) U/L ALT (7-52) U/L Alkaline Phosphatase (34-104) U/L Ammonia (18-72) umol/L Troponin I High Sens (0-20) pg/ml Total Protein (6.0-8.3) gm/dl Albumin (3.4-5.0) gm/dl Procalcitonin (0-0.5) ng/ml TSH 2.926 (0.300-4.500) uIu/ml Urine Color Urine Appearance (Clear) Urine pH (4.5-7.5) Ur Specific Pruden (1.000-1.030) Urine Protein (Negative) Urine Glucose (UA) (Negative) Urine Ketones (Negative) Urine Blood (Negative) Urine Nitrite (Negative) Urine Bilirubin (Negative) Urine Urobilinogen (Negative) Ur Leukocyte Esterase (Negative) Urine WBC (Auto) (0-5) /hpf Urine RBC (Auto) (0-4) /hpf U Hyaline Cast (Auto) (0-5) /lpf U Epithel Cells (Auto) (0-5) /lpf Urine Bacteria (Auto) (Negative) Urine Opiates Screen (Neg) Ur Methadone, Qual (Neg) Urine Barbiturates (Neg) Ur Phencyclidine (PCP) (Neg) U Amphetamin/Meth Scrn (Neg) MDMA (Ecstasy) Screen (Neg) U Benzodiazepines Scrn (Neg) Ur Cocaine Metabolite (Neg) U Marijuana (THC) Screen (Neg) Ethyl Alcohol mg/dL < 10.0 (<10.0) mg/dl SARS-CoV-2 (PCR) (Negative) Influenza Type A (PCR) (Neg) Influenza Type B (PCR) (Neg) RSV (RT-PCR) (Neg) 10/01/22 10/01/22 10/01/22 Range/Units 17:46 17:46 18:23 WBC (4.8-10.8) K/ul RBC (4.70-6.10) M/uL Hgb (14.0-18.0) g/dl Hct (42.0-52.0) % MCV (80.0-100.0) fL MCH (25.0-34.0) pg MCHC (32.0-36.0) g/dL RDW Std Deviation (36.4-46.3) fL RDW Coeff of Paulo (11.5-14.5) % Plt Count (130-400) K/uL MPV (9.4-12.4) fL Immature Gran % (Auto) % Neut % (Auto) % Lymph % (Auto) % Mckean % (Auto) % Eos % (Auto) % Baso % (Auto) % Neut # (Auto) (1.40-6.50) K/uL Lymph # (Auto) (1.2-3.4) K/uL Mckean # (Auto) (0.11-0.59) K/uL Eos # (Auto) (0-0.50) K/uL Baso # (Auto) (0-0.2) K/uL Immature Gran # (Auto) (0.01-0.20) K/uL PT (9.0-12.0) Seconds INR (0.9-1.1) APTT (21.0-31.0) Seconds PTT Ratio D-Dimer (0-500) ug/L FEU ABG pH (7.35-7.45) ABG pCO2 (35-46) mmHg ABG pO2 (80-95) mmHg ABG HCO3 (19-24) mmol/L ABG O2 Saturation (90-95) % ABG Base Excess (-9-1.8) mEq/L Jeffrey Test (Pos) VBG pH 7.27 L (7.36-7.41) VBG pCO2 87 H (38-50) mmHg VBG pO2 51 mmHg VBG HCO3 40 mmol/L VBG O2 Saturation 74.8 % VBG Base Excess 9.4 mEq/L Oxygen Given Sodium (136-145) mmol/L Potassium (3.5-5.1) mmol/L Chloride (98-107) mmol/L Carbon Dioxide (21-32) mmol/L Anion Gap (3-11) BUN (6-23) mg/dl Creatinine (0.6-1.4) mg/dl Est Cr Clr Drug Dosing ml/min Est GFR ( Amer) ml/min Est GFR (Non-Af Amer) ml/min BUN/Creatinine Ratio (10-20) Glucose (70-99(Fasting)) mg/dl POC Glucose (70-99) mg/dl Lactate (0.4-2.0) mmol/L Calcium (8.6-10.3) mg/dl Magnesium (1.7-2.4) mg/dl Total Bilirubin (0.2-1.0) mg/dl Direct Bilirubin (0-0.2) mg/dl AST (13-39) U/L ALT (7-52) U/L Alkaline Phosphatase (34-104) U/L Ammonia 53.0 (18-72) umol/L Troponin I High Sens (0-20) pg/ml Total Protein (6.0-8.3) gm/dl Albumin (3.4-5.0) gm/dl Procalcitonin (0-0.5) ng/ml TSH (0.300-4.500) uIu/ml Urine Color Yellow Urine Appearance Clear (Clear) Urine pH 7.5 (4.5-7.5) Ur Specific Pruden 1.017 (1.000-1.030) Urine Protein 2+ H (Negative) Urine Glucose (UA) Negative (Negative) Urine Ketones Negative (Negative) Urine Blood Negative (Negative) Urine Nitrite Negative (Negative) Urine Bilirubin Negative (Negative) Urine Urobilinogen Negative (Negative) Ur Leukocyte Esterase Negative (Negative) Urine WBC (Auto) 0 (0-5) /hpf Urine RBC (Auto) 0-4 (0-4) /hpf U Hyaline Cast (Auto) 0 (0-5) /lpf U Epithel Cells (Auto) 0-5 (0-5) /lpf Urine Bacteria (Auto) Negative (Negative) Urine Opiates Screen (Neg) Ur Methadone, Qual (Neg) Urine Barbiturates (Neg) Ur Phencyclidine (PCP) (Neg) U Amphetamin/Meth Scrn (Neg) MDMA (Ecstasy) Screen (Neg) U Benzodiazepines Scrn (Neg) Ur Cocaine Metabolite (Neg) U Marijuana (THC) Screen (Neg) Ethyl Alcohol mg/dL (<10.0) mg/dl SARS-CoV-2 (PCR) (Negative) Influenza Type A (PCR) (Neg) Influenza Type B (PCR) (Neg) RSV (RT-PCR) (Neg) 10/01/22 10/01/22 10/01/22 Range/Units 18:23 18:26 18:56 WBC (4.8-10.8) K/ul RBC (4.70-6.10) M/uL Hgb (14.0-18.0) g/dl Hct (42.0-52.0) % MCV (80.0-100.0) fL MCH (25.0-34.0) pg MCHC (32.0-36.0) g/dL RDW Std Deviation (36.4-46.3) fL RDW Coeff of Paulo (11.5-14.5) % Plt Count (130-400) K/uL MPV (9.4-12.4) fL Immature Gran % (Auto) % Neut % (Auto) % Lymph % (Auto) % Mckean % (Auto) % Eos % (Auto) % Baso % (Auto) % Neut # (Auto) (1.40-6.50) K/uL Lymph # (Auto) (1.2-3.4) K/uL Mckean # (Auto) (0.11-0.59) K/uL Eos # (Auto) (0-0.50) K/uL Baso # (Auto) (0-0.2) K/uL Immature Gran # (Auto) (0.01-0.20) K/uL PT (9.0-12.0) Seconds INR (0.9-1.1) APTT (21.0-31.0) Seconds PTT Ratio D-Dimer (0-500) ug/L FEU ABG pH (7.35-7.45) ABG pCO2 (35-46) mmHg ABG pO2 (80-95) mmHg ABG HCO3 (19-24) mmol/L ABG O2 Saturation (90-95) % ABG Base Excess (-9-1.8) mEq/L Jeffrey Test (Pos) VBG pH (7.36-7.41) VBG pCO2 (38-50) mmHg VBG pO2 mmHg VBG HCO3 mmol/L VBG O2 Saturation % VBG Base Excess mEq/L Oxygen Given Sodium (136-145) mmol/L Potassium (3.5-5.1) mmol/L Chloride (98-107) mmol/L Carbon Dioxide (21-32) mmol/L Anion Gap (3-11) BUN (6-23) mg/dl Creatinine (0.6-1.4) mg/dl Est Cr Clr Drug Dosing ml/min Est GFR ( Amer) ml/min Est GFR (Non-Af Amer) ml/min BUN/Creatinine Ratio (10-20) Glucose (70-99(Fasting)) mg/dl POC Glucose 155 H (70-99) mg/dl Lactate (0.4-2.0) mmol/L Calcium (8.6-10.3) mg/dl Magnesium (1.7-2.4) mg/dl Total Bilirubin (0.2-1.0) mg/dl Direct Bilirubin (0-0.2) mg/dl AST (13-39) U/L ALT (7-52) U/L Alkaline Phosphatase (34-104) U/L Ammonia (18-72) umol/L Troponin I High Sens (0-20) pg/ml Total Protein (6.0-8.3) gm/dl Albumin (3.4-5.0) gm/dl Procalcitonin (0-0.5) ng/ml TSH (0.300-4.500) uIu/ml Urine Color Urine Appearance (Clear) Urine pH (4.5-7.5) Ur Specific Pruden (1.000-1.030) Urine Protein (Negative) Urine Glucose (UA) (Negative) Urine Ketones (Negative) Urine Blood (Negative) Urine Nitrite (Negative) Urine Bilirubin (Negative) Urine Urobilinogen (Negative) Ur Leukocyte Esterase (Negative) Urine WBC (Auto) (0-5) /hpf Urine RBC (Auto) (0-4) /hpf U Hyaline Cast (Auto) (0-5) /lpf U Epithel Cells (Auto) (0-5) /lpf Urine Bacteria (Auto) (Negative) Urine Opiates Screen Neg (Neg) Ur Methadone, Qual Neg (Neg) Urine Barbiturates Neg (Neg) Ur Phencyclidine (PCP) Neg (Neg) U Amphetamin/Meth Scrn Neg (Neg) MDMA (Ecstasy) Screen Neg (Neg) U Benzodiazepines Scrn Neg (Neg) Ur Cocaine Metabolite Neg (Neg) U Marijuana (THC) Screen Neg (Neg) Ethyl Alcohol mg/dL (<10.0) mg/dl SARS-CoV-2 (PCR) POSITIVE A* (Negative) Influenza Type A (PCR) Negative (Neg) Influenza Type B (PCR) Negative (Neg) RSV (RT-PCR) Negative (Neg) 10/01/22 Range/Units 19:55 WBC (4.8-10.8) K/ul RBC (4.70-6.10) M/uL Hgb (14.0-18.0) g/dl Hct (42.0-52.0) % MCV (80.0-100.0) fL MCH (25.0-34.0) pg MCHC (32.0-36.0) g/dL RDW Std Deviation (36.4-46.3) fL RDW Coeff of Paulo (11.5-14.5) % Plt Count (130-400) K/uL MPV (9.4-12.4) fL Immature Gran % (Auto) % Neut % (Auto) % Lymph % (Auto) % Mckean % (Auto) % Eos % (Auto) % Baso % (Auto) % Neut # (Auto) (1.40-6.50) K/uL Lymph # (Auto) (1.2-3.4) K/uL Mckean # (Auto) (0.11-0.59) K/uL Eos # (Auto) (0-0.50) K/uL Baso # (Auto) (0-0.2) K/uL Immature Gran # (Auto) (0.01-0.20) K/uL PT (9.0-12.0) Seconds INR (0.9-1.1) APTT (21.0-31.0) Seconds PTT Ratio D-Dimer (0-500) ug/L FEU ABG pH 7.40 (7.35-7.45) ABG pCO2 64 H (35-46) mmHg ABG pO2 108 H (80-95) mmHg ABG HCO3 40 H (19-24) mmol/L ABG O2 Saturation 98.7 H (90-95) % ABG Base Excess 12.0 H (-9-1.8) mEq/L Jeffrey Test Pos (Pos) VBG pH (7.36-7.41) VBG pCO2 (38-50) mmHg VBG pO2 mmHg VBG HCO3 mmol/L VBG O2 Saturation % VBG Base Excess mEq/L Oxygen Given 60% Sodium (136-145) mmol/L Potassium (3.5-5.1) mmol/L Chloride (98-107) mmol/L Carbon Dioxide (21-32) mmol/L Anion Gap (3-11) BUN (6-23) mg/dl Creatinine (0.6-1.4) mg/dl Est Cr Clr Drug Dosing ml/min Est GFR ( Amer) ml/min Est GFR (Non-Af Amer) ml/min BUN/Creatinine Ratio (10-20) Glucose (70-99(Fasting)) mg/dl POC Glucose (70-99) mg/dl Lactate (0.4-2.0) mmol/L Calcium (8.6-10.3) mg/dl Magnesium (1.7-2.4) mg/dl Total Bilirubin (0.2-1.0) mg/dl Direct Bilirubin (0-0.2) mg/dl AST (13-39) U/L ALT (7-52) U/L Alkaline Phosphatase (34-104) U/L Ammonia (18-72) umol/L Troponin I High Sens (0-20) pg/ml Total Protein (6.0-8.3) gm/dl Albumin (3.4-5.0) gm/dl Procalcitonin (0-0.5) ng/ml TSH (0.300-4.500) uIu/ml Urine Color Urine Appearance (Clear) Urine pH (4.5-7.5) Ur Specific Pruden (1.000-1.030) Urine Protein (Negative) Urine Glucose (UA) (Negative) Urine Ketones (Negative) Urine Blood (Negative) Urine Nitrite (Negative) Urine Bilirubin (Negative) Urine Urobilinogen (Negative) Ur Leukocyte Esterase (Negative) Urine WBC (Auto) (0-5) /hpf Urine RBC (Auto) (0-4) /hpf U Hyaline Cast (Auto) (0-5) /lpf U Epithel Cells (Auto) (0-5) /lpf Urine Bacteria (Auto) (Negative) Urine Opiates Screen (Neg) Ur Methadone, Qual (Neg) Urine Barbiturates (Neg) Ur Phencyclidine (PCP) (Neg) U Amphetamin/Meth Scrn (Neg) MDMA (Ecstasy) Screen (Neg) U Benzodiazepines Scrn (Neg) Ur Cocaine Metabolite (Neg) U Marijuana (THC) Screen (Neg) Ethyl Alcohol mg/dL (<10.0) mg/dl SARS-CoV-2 (PCR) (Negative) Influenza Type A (PCR) (Neg) Influenza Type B (PCR) (Neg) RSV (RT-PCR) (Neg) Imaging Data Attestation: I personally reviewed and interpreted this imaging study as follows: My Impression: 1 view chest x-ray was obtained in the emergency department. My interpretation is volume overload with cardiomegaly, final report pending CT of the head was obtained in the emergency department. My interpretation is no intracranial hemorrhage, no mass effect, final report below. Radiologist's Impression: Cervical Spine CT 10/01/22 17:23 CT SCAN OF THE CERVICAL SPINE CLINICAL HISTORY: Change in mental status. COMPARISON STUDY: CT of the cervical spine dated 05/15/2018. TECHNIQUE: CT scan of the cervical spine is performed from the skull base to the upper thoracic spine. Images are reviewed in the axial, sagittal, and coronal planes. IV contrast was not administered for this examination. A dose lowering technique was utilized adhering to the principles of ALARA. CT DOSE: 3687.50 mGy.cm FINDINGS: Skeletal structures: The skeletal structures are osteopenic. There is no evidence of fracture or subluxation involving the cervical spine. Vertebral body height and alignment are maintained. There is straightening of the cervical lordosis. Anterior osteophytes are seen throughout. The odontoid process and lateral masses are intact. The atlantoaxial articulation is preserved noting productive degenerative change. The spinous processes appear intact. There is moderate multilevel cervical spondylosis. Uncovertebral and facet arthropathy contribute to neural foraminal narrowing at several levels. Intervertebral discs: There is mild multilevel degenerative disc space narrowing, greatest at C5-C6. Central canal: Posterior disc osteophyte complexes at C4-C5, C5-C6, and C6-C7 may contribute to acquired compromise of the central canal. Soft tissues: The prevertebral and paraspinous soft tissues are within normal limits. There is atherosclerotic calcification of the carotid bulbs. There are pacemaker leads at the left thoracic inlet. Calvarium: The visualized calvarium at the skull base appears intact. Brain parenchyma: Partially visualized brain parenchyma at the skull base is within normal limits. Sinuses and mastoids: The visualized paranasal sinuses are clear. The mastoid air cells are well pneumatized. Lung apices: Moderate to large pleural effusions are partially visualized. . IMPRESSION: 1. There is no evidence of fracture or subluxation involving the cervical spine. 2. Osteopenia and spondylitic change as above. 3. Moderate to large pleural effusions are partially imaged. ACT 112: Negative or not required by law. Electronically signed by: Hiram Leal M.D. 10/01/2022 5:57 PM Chest X-Ray 10/01/22 17:23 SINGLE VIEW CHEST CLINICAL HISTORY: Sepsis. FINDINGS: An AP, portable, upright chest radiograph is compared to study dated 08/03/2022. Correlation is made with chest CT dated 09/20/2019. The examination is degraded by portable technique and patient rotation. The patient is status post midline sternotomy. A single-lead cardiac AICD is unchanged in position and partially obscures the left mid chest. The heart is enlarged noting atherosclerotic calcification of the thoracic aorta. There is pulmonary vascular congestion with evidence of interstitial edema. There are layering pleural effusions with dependent consolidation. No pneumothorax is seen. The skeletal structures are osteopenic. The bony thorax is grossly intact. IMPRESSION: 1. Cardiomegaly and AICD without evidence of congestive failure and pulmonary edema. 2. Layering pleural effusions with dependent consolidation. ACT 112: Negative or not required by law. Electronically signed by: Hiram Leal M.D. 10/01/2022 6:[address] 10/01/22 17:23 CT SCAN OF THE BRAIN WITHOUT IV CONTRAST CLINICAL HISTORY: Change in mental status. COMPARISON STUDY: CT of the brain dated 07/24/2022. TECHNIQUE: Unenhanced axial CT scan of the brain is performed from the vertex to the skull base. A dose lowering technique was utilized adhering to the principles of ALARA. The patient was scanned twice due to motion artifact. FINDINGS: Brain parenchyma: There is age-related involutional change noting moderate subcortical and periventricular microangiopathic disease. There is no hemorrhage, mass effect, or evidence of acute territorial ischemia by CT criteria. Kumar-white matter differentiation is preserved. No extra-axial fluid collection is seen. Ventricles, sulci, cisterns: Prominent secondary to involutional change. Intracranial vasculature: There is atherosclerotic calcification of the cavernous carotid and vertebral arteries. Calvarium: Unremarkable. Soft tissues: Induration within the left suboccipital scalp is unchanged. Sinuses and mastoids: The paranasal sinuses are clear. The mastoid air cells are well pneumatized. Orbits: The bony orbits are grossly intact. There are bilateral ocular lens implants. IMPRESSION: There is no hemorrhage, mass effect, or evidence of acute territorial ischemia by CT criteria noting a motion degraded examination. ACT 112: Negative or not required by law. Electronically signed by: Hiram Leal M.D. 10/01/2022 5:51 PM Discharge Plan Visit Data Chief Complaint: Altered Mental Status Stated Complaint: Altered Mental Status ED Provider: Vadim Mathis Discharge Problem: Acute alteration in mental status, Hypoglycemia, Hypoxia, Acute metabolic encephalopathy, Acute respiratory acidosis, Hypothermia, COVID-19 Patient Disposition: Being Evaluated by Hospitalist Forms Stand Alone Forms: My [facility] Prescriptions Prescriptions: No Action (DME) insulin syringe-needle U-100 [BD Insulin Syringe Ultra-Fine] 1 mL 31 gauge x 5/16 syringe See Rx Instructions .ROUTE .MEDSUPPLY Qty: 600 3RF Rx Instructions: use 6 x daily to inject insulin spironolactone 25 mg tablet 25 mg PO BID Qty: 180 3RF Hold Instructions: Hyperkalemia gabapentin 300 mg capsule 600 mg PO BID Qty: 360 3RF metoprolol succinate 100 mg tablet extended release 24 hr 100 mg PO QAM Qty: 90 3RF montelukast 10 mg tablet 10 mg PO HS Qty: 90 3RF duloxetine 60 mg capsule,delayed release(DR/EC) 60 mg PO QAM Qty: 90 3RF fenofibrate 54 mg tablet 54 mg PO HS Qty: 90 3RF cholecalciferol (vitamin D3) 50 mcg (2,000 unit) capsule 4,000 unit PO QAM insulin glargine [Lantus Solostar U-100 Insulin] 100 unit/mL (3 mL) insulin pen See Rx Instructions subcut BID Rx Instructions: As directed subcutaneously twice a day; bumetanide 1 mg tablet 1 mg PO DAILY pantoprazole 20 mg tablet,delayed release (DR/EC) 20 mg PO QAM Qty: 90 3RF atorvastatin 80 mg tablet 80 mg PO HS Qty: 90 3RF Xarelto 15 mg tablet 15 mg PO QPM Rx Instructions: must administer with evening meal (DME) Dexcom G6 Sensor Device See Rx Instructions .ROUTE .MEDSUPPLY Qty: 3 Rx Instructions: As directed (DME) Dexcom G6 Transmitter Device See Rx Instructions .ROUTE .MEDSUPPLY Qty: 1 Rx Instructions: As directed (DME) Dexcom G6 Assortment Planner Misc See Rx Instructions .ROUTE .MEDSUPPLY Qty: 1 Rx Instructions: As directed (DME) FreeStyle Lite Strips Strip See Rx Instructions .ROUTE .MEDSUPPLY Rx Instructions: TEST 1 TIMES DAILY nitroglycerin [Nitrostat] 0.4 mg tablet, sublingual 0.4 mg Sublingual Q5M PRN (Reason: Chest Pain) Rx Instructions: NEEDED FOR CHEST PAIN : ONE TABLET UNDER THE TONGUE EVERY 5 MINUTES UP TO 3 DOSES. aspirin 81 mg Tablet,Delayed Release (Dr/Ec) 81 mg PO QAM ketoconazole 2 % cream 1 applic topical DAILY PRN (Reason: Rash) sennosides [Senokot] 8.6 mg Tablet 17.2 mg PO HS Qty: 0 0RF docusate sodium 100 mg Capsule 100 mg PO BID Qty: 0 0RF lisinopril 5 mg tablet 2.5 mg PO QAM Qty: 90 3RF guaifenesin [Mucinex] 600 mg Tablet Extended Release 12hr 1,200 mg PO Q12 Qty: 14 0RF Referrals Referrals: Riri Coreas [Director Of Clinical Education] -
[2022-10-01 17:40] LABS: Basophils # (auto) 0.07 K/uL (0-0.2); Basophils % (auto) 0.6 %; Eosinophils # (auto) 0.04 K/uL (0-0.50); Eosinophils % (auto) 0.3 %; Hematocrit (blood only) 44.5 % (42.0-52.0); Hemoglobin 14.3 g/dl (14.0-18.0); Immature Granulocytes # (auto) 0.05 K/uL (0.01-0.20); Immature Granulocytes % (auto) 0.4 %; Lymphocytes # (auto) 0.84 K/uL (1.2-3.4); Lymphocytes % (auto) 6.6 %; Mean Corpuscular Hemoglobin 29.6 pg (25.0-34.0); Mean Corpuscular Hgb Conc 32.1 g/dL (32.0-36.0); Mean Corpuscular Volume 92.1 fL (80.0-100.0); Mean Platelet Volume 10.5 fL (9.4-12.4); Monocytes # (auto) 1.35 K/uL (0.11-0.59); Monocytes % (auto) 10.6 %; Neutrophils # (auto) 10.36 K/uL (1.40-6.50); Neutrophils % (auto) 81.5 %; Platelet Count 413 K/uL (130-400); RDW Coefficient of Variation 16.4 % (11.5-14.5); RDW Standard Deviation 55.2 fL (36.4-46.3); Red Blood Count 4.83 M/uL (4.70-6.10); White Blood Count 12.71 K/ul (4.8-10.8)
--- NOTE | 2022-10-01 17:52 | CT Scan Report ---
CT SCAN OF THE BRAIN WITHOUT IV CONTRAST CLINICAL HISTORY: Change in mental status. COMPARISON STUDY: CT of the brain dated 07/24/2022. TECHNIQUE: Unenhanced axial CT scan of the brain is performed from the vertex to the skull base. A do se lowering technique was utilized adhering to the principles of ALARA. The patient was scanned twice due to motion artifact. FINDINGS: Brain parenchyma: There is age-related involutional change noting moderate subcortical and periventri cular microangiopathic disease. There is no hemorrhage, mass effect, or evidence of acute territorial ischemia by CT criteria. Kumar-white matter differentiation is preserved. No extra-axial fluid collec tion is seen. Ventricles, sulci, cisterns: Prominent secondary to involutional change. Intracranial vasculature: There is atherosclerotic calcification of the cavernous carotid and vertebr al arteries. Calvarium: Unremarkable. Soft tissues: Induration within the left suboccipital scalp is unchanged. Sinuses and mastoids: The paranasal sinuses are clear. The mastoid air cells are well pneumatized. Orbits: The bony orbits are grossly intact. There are bilateral ocular lens implants. IMPRESSION: There is no hemorrhage, mass effect, or evidence of acute territorial ischemia by CT danielat lauryn noting a motion degraded examination. ACT 112: Negative or not required by law. Electronically signed by: Hiram Leal M.D. 10/01/2022 5:51 PM
--- NOTE | 2022-10-01 17:59 | CT Scan Report ---
CT SCAN OF THE CERVICAL SPINE CLINICAL HISTORY: Change in mental status. COMPARISON STUDY: CT of the cervical spine dated 05/15/2018. TECHNIQUE: CT scan of the cervical spine is performed from the skull base to the upper thoracic spine . Images are reviewed in the axial, sagittal, and coronal planes. IV contrast was not administered fo r this examination. A dose lowering technique was utilized adhering to the principles of ALARA. CT DOSE: 3687.50 mGy.cm FINDINGS: Skeletal structures: The skeletal structures are osteopenic. There is no evidence of fracture or subl uxation involving the cervical spine. Vertebral body height and alignment are maintained. There is st raightening of the cervical lordosis. Anterior osteophytes are seen throughout. The odontoid process and lateral masses are intact. The atlantoaxial articulation is preserved noting productive degenera tive change. The spinous processes appear intact. There is moderate multilevel cervical spondylosis. Uncovertebral and facet arthropathy contribute to neural foraminal narrowing at several levels. Intervertebral discs: There is mild multilevel degenerative disc space narrowing, greatest at C5-C6. Central canal: Posterior disc osteophyte complexes at C4-C5, C5-C6, and C6-C7 may contribute to acqui red compromise of the central canal. Soft tissues: The prevertebral and paraspinous soft tissues are within normal limits. There is athero sclerotic calcification of the carotid bulbs. There are pacemaker leads at the left thoracic inlet. Calvarium: The visualized calvarium at the skull base appears intact. Brain parenchyma: Partially visualized brain parenchyma at the skull base is within normal limits. Sinuses and mastoids: The visualized paranasal sinuses are clear. The mastoid air cells are well pneu matized. Lung apices: Moderate to large pleural effusions are partially visualized. . IMPRESSION: 1. There is no evidence of fracture or subluxation involving the cervical spine. 2. Osteopenia and spondylitic change as above. 3. Moderate to large pleural effusions are partially imaged. ACT 112: Negative or not required by law. Electronically signed by: Hiram Leal M.D. 10/01/2022 5:57 PM
[2022-10-01 18:06] LABS: Albumin Level 4.1 gm/dl (3.4-5.0); BUN Creatinine Ratio 16.6 (10-20); Bilirubin Direct 0.2 mg/dl (0-0.2); Bilirubin,Total 0.8 mg/dl (0.2-1.0); Calcium 9.8 mg/dl (8.6-10.3); Creatinine Clr Calc Pharmacy 47.6 ml/min; Est GFR (African American) 49.1 ml/min; Est GFR (Non-African American) 42.4 ml/min; Magnesium 2.1 mg/dl (1.7-2.4); Potassium 3.8 mmol/L (3.5-5.1); Total Protein 8.2 gm/dl (6.0-8.3)
[2022-10-01 18:09] LABS: INR 1.1 (0.9-1.1); Partial Thromboplastin Ratio 1.2
[2022-10-01 18:12] LABS: Troponin I High Sensitivity 27.3 pg/ml (0-20)
[2022-10-01 18:14] LABS: Base Excess VBG 9.4 mEq/L; HCO3 VBG 40 mmol/L; Oxygen Saturation VBG 74.8 %; PCO2 VBG 87 mmHg (38-50); PO2 VBG 51 mmHg; pH VBG 7.27 (7.36-7.41)
--- NOTE | 2022-10-01 18:23 | XRay Report ---
SINGLE VIEW CHEST CLINICAL HISTORY: Sepsis. FINDINGS: An AP, portable, upright chest radiograph is compared to study dated 08/03/2022. Correlation is made with chest CT dated 09/20/2019. The examination is degraded by portable technique and patient rotation. The patient is status post midline sternotomy. A single-lead cardiac AICD is unchanged in position and partially obscures the left mid chest. The heart is enlarged noting atherosclerotic papito cification of the thoracic aorta. There is pulmonary vascular congestion with evidence of interstitia l edema. There are layering pleural effusions with dependent consolidation. No pneumothorax is seen. The skeletal structures are osteopenic. The bony thorax is grossly intact. IMPRESSION: 1. Cardiomegaly and AICD without evidence of congestive failure and pulmonary edema. 2. Layering pleural effusions with dependent consolidation. ACT 112: Negative or not required by law. Electronically signed by: Hiram Leal M.D. 10/01/2022 6:21 PM
[2022-10-01 18:31] LABS: D Dimer 1120 ug/L FEU (0-500)
[2022-10-01 18:50] LABS: Appearance Urine Clear (Clear); Bacteria Urine Automated Negative (Negative); Bilirubin Urine Negative (Negative); Blood Urine Negative (Negative); Cast Urine Automated 0 /lpf (0-5); Color Urine Yellow; Epithelial Cell Urine Auto 0-5 /lpf (0-5); Glucose Urine UA Negative (Negative); Ketones Urine Negative (Negative); Leukocyte Esterase Urine Negative (Negative); Nitrite Urine Negative (Negative); RBC Urine Automated 0-4 /hpf (0-4); Specific Gravity Urine 1.017 (1.000-1.030); Urobilinogen Urine Negative (Negative); WBC Urine Automated 0 /hpf (0-5); pH Urine 7.5 (4.5-7.5)
[2022-10-01 18:51] LABS: Protein Urine 2+ (Negative)
[2022-10-01 19:29] LABS: Amphetamines+Metham, Urine Neg (Neg); Barbiturates, Urine Neg (Neg); Benzodiazepine, Urine Neg (Neg); Cocaine, Urine Neg (Neg); MDMA (Ecstacy), Urine Neg (Neg); Methadone, Urine Neg (Neg); Opiate, Urine Neg (Neg); Phencyclidine, Urine Neg (Neg)
[2022-10-01 19:45] LABS: Influenza A virus by PCR Negative (Neg); Influenza B virus by PCR Negative (Neg); RSV by PCR Negative (Neg)
[2022-10-01 19:55] LABS: SARS CoV2 RNA(COVID-19) Ceph POSITIVE (Negative)
[2022-10-01 20:14] LABS: HCO3 ABG 40 mmol/L (19-24); Oxygen Saturation ABG 98.7 % (90-95); PCO2 ABG 64 mmHg (35-46); PO2 ABG 108 mmHg (80-95)
[2022-10-01 20:27] LABS: Allen Test Pos (Pos)
--- NOTE | 2022-10-01 20:29 | History & Physical Report ---
Date of Service October 01, 2022 Assessment & Plan (1) Hypoglycemia: Plan: 81yo male with multiple medical comorbidities presenting from home after being found down with hypoglycemia, hypothermia and acute metabolic encephalopathy as well as acute hypoxic respiratory failure with hypercarbia. Patient has been doing poorly for the last week. Daughter reports patient has been retaining fluid and has become more short of breath over the last week. He has also had intermittent confusion, possible delirium as well as episodes of hypoglycemia. Daughter is uncertain if patient is taking his medications as prescribed. She reports he does not eat much other than junk food. Hypoglycemia with blood sugar reportedly in the low 30's prior to arrival. He has been given glucose tabs x 2, orange juice, sticky roll and D10. Uncertain when and how much insulin he last took. Blood sugar cyu=[id number] Last HgbA1C on record from 06/16/22 = 8.4 Differential to include - accidental insulin overdose, possible sepsis/infection. Liver studies and renal function are near baseline. -Admit to PCU -Monitor fingersticks q 2 hours - goal blood sugar 110 - 140 -Pharmacy Glycemic management consultation appreciated to assist with insulin management -Will hold off on insulin administration for now until we can accurately assess BSG trend -Check HgbA1C -BSG maintained at present -Patient should have his Dexcom assessed prior to discharge as daughter states it has not been correlating with fingersticks. (2) Hypothermia: Plan: Patient hypothermic on arrival - rectal temperature of 33.9. Daughter states t hat he was clothed and the house was warm when he was found down. Hypothermia may be secondary to patient's severe hypoglycemia vs sepsis. TSH is WNL. -Continue external warming blanket -Monitor rectal core temperatures -Correction of hypoglycemia -Empiric Zosyn for possible sepsis -Check random cortisol (3) Metabolic encephalopathy: Plan: Patient somnolent on arrival. Mental status has been improving whilst in the ER. He is now able to answer some questions and follow commands. Multiple possible causes for acute metabolic encephalopathy to include hypothermia, hypoglycemia, acute hypoxic/hypercarbic respiratory failure, possible infection. -Frequent orientation -Management of acute and chronic medical issues (4) Acute respiratory failure with hypoxia and hypercapnia: Plan: Patient improving. Presently on BiPAP /, 60%FiO2. Last ABG with normal pH of 7.4, mildly elevated pCO2=64. CXR reveals layering pleural effusions with dependent consolidation. Likely some degree of chronic respiratory acidosis. -Continue BiPAP, wean as tolerated -Goal saturation 90% (5) COVID-19: Plan: Patient was hospitalized at [facility] from 07/25 --> 08/05 with Covid-19. He tests POSITIVE today on PCR testing which may remain positive for months after initial infection. Most likely represents persistent positive PCR testing rather than true new Covid infection. However, patient presented with acute hypoxic respiratory failure. Will maintain isolation precautions for now -Covid-isolation -Supplemental O2 as needed (6) Chronic HFrEF (heart failure with reduced ejection fraction): Plan: Patient with history of chronic HFrEF, prior sustained VT s/p ICD placement. Daughter reports patient has been retaining fluid for the last week. CXR with bilateral layering pleural effusions. Uncertain if he is compliant with his home medications -Bumex 1mg IV BID -Continue Spironolactone 25mg po BID -Monitor intake and output -Daily weights (7) Atrial fibrillation: Plan: Chronic. Overall rate controlled. Anticoagulated on Rivaroxaban -Continue Rivaroxaban 15mg po qPM -Continue Metoprolol 100mg po qAM -Telemetry monitoring (8) DM type 2 (diabetes mellitus, type 2): Plan: With hypoglycemia as above -Check HgbA1C -Holding insulin for now -Pharmacy glycemic management consultation appreciated -Continue Gabapentin for diabetic neuropathy (9) CAD (coronary artery disease): Plan: Patient with history of CAD s/p CABG x 3V. He follows with Cardiology. Mildly elevated troponin at 27.3. No acute changes on EKG -Trend troponin -Telemetry monitoring -Continue ASA, Atorvastatin, Lisinopril, Metoprolol F/E/N - Diuresis with Bumex 1mg IV BID, monitor electrolytes, Regular diet if mental status improves Ppx - Continue Rivaroxaban Code - Patient has extensively discussed his goals of care with his daughter. He is DNR/DNI. He has reported on multiple occasions that he does not want aggressive treatments, hospitalizations, rehab or placement. Daughter mentioned possibility of comfort care measures during this hospitalization. However, as patient is improving with use of BiPAP will continue to treat as above. Daughter states that she does not want any escalation of care to include pressors, lines, intubations. She is agreeable to antibiotics, diuretics and BiPAP for now. As patient becomes more lucid may wish to further address these issues. Dispo - Admit to PCU History of Present Illness Chief Complaint: found down Primary Care Provider: Tere Narayan MD Wilber Vogel is an 81yo male with multiple medical comorbidities presenting from home after being found down by his daughter. Patient was hospitalized at [facility] from 07/25/22 - 08/05/22 with Covid-19 infection. He was subsequently discharged to [facility]. Patient signed himself out of [facility] on 08/25/22 and has been living home alone. He is but is currently estranged from his due to his occasionally erratic behavior and threats. He has family that lives close by that check on him regularly. Per daughter, patient is non-adherent to his medications, she is uncertain what he takes and when. He eats a lot of junk food and at times does not eat at all. He ambulates with a rolling walker but falls frequently and has various bruises and scrapes scattered across his body from prior falls. Patient's daughter reports that over the last week he has been "filling up with fluid". He has been more short of breath. Patient has had episodes of increased confusion this week as well. His daughter states that on 09/28/22 he was speaking about how his parents were helping him manage his Dexcom. The next day, 09/29/22 his daughter states that he was acting very delirious - speaking about the and reaching for stuff in the air. Daughter also reports that patient has been having low blood sugars this week. She has noticed that his Dexcom is not correlating with fingersticks. For example, earlier in the week patient's Dexcom alerted that his blood sugar was at 78. When his daughter checked patient's fingerstick it was 34. Patient was last seen normal by his daughter last night around 21:00. She lives across the street and noted that his living room light and TV went off around 23:30. Daughter checked on patient this afternoon around 15:00 and he was found down. He was awake but confused, diaphoretic. His blood sugar was low in the 30's. Daughter gave him two glucose tabs, orange juice with two spoonfuls of sugar in it and part of a sticky roll. She called EMS and the fire department to come assist with getting him off the floor. Patient's blood sugar reported to be 34 even after receiving all the sugar described above. Patient was given 250mL of D10 by EMS with repeat blood sugar of 177. Patient became less responsive in the field and was transported to [facility] ED. In the ER patient to be hypothermic with temperature of 33.9 rectal. He is hypoxic with saturations in the 70's. He was placed on a non-rebreather with improvement in saturations to the 90's. VBG was obtained which revealed respiratory acidosis 02/02/87 therefore patient was initiated on BiPAP. Patient wakes with verbal stimulation. Is able to answer YES and NO questions but then falls back to sleep. He does not recall the events prior to arrival. He currently denies chest pain and shortness of breath. No reported ICD firing. ER Course: BiPAP Warming blanket Allergies Allergy/AdvReac Type Severity Reaction Status Date / Time No Known Allergies Allergy Verified 08/25/22 21:34 Home Medications Medication Instructions Recorded Confirmed Type aspirin 81 mg tablet,delayed 81 mg PO QAM 06/04/18 08/25/22 History release nitroglycerin 0.4 mg sublingual 0.4 mg sublingual Q5M PRN Chest 02/25/19 08/25/22 History tablet (Nitrostat) Pain cholecalciferol (vitamin D3) 50 4,000 unit PO QAM 04/22/20 08/25/22 History mcg (2,000 unit) capsule blood-glucose meter,continuous #1 ea 11/10/20 08/25/22 History (Dexcom G6 Senior Project Architect) blood-glucose sensor (Dexcom G6 #3 ea 11/10/20 08/25/22 History Sensor device) blood-glucose transmitter (Dexcom #1 ea 11/10/20 08/25/22 History G6 Transmitter device) blood sugar diagnostic (FreeStyle 12/01/21 08/25/22 History Lite Strips) ketoconazole 2 % topical cream 1 applic topical DAILY PRN Rash 01/04/22 08/25/22 History atorvastatin 80 mg tablet 80 mg PO HS #90 tabs 03/19/22 08/25/22 Rx pantoprazole 20 mg tablet,delayed 20 mg PO QAM #90 tabs 03/19/22 08/25/22 Rx release insulin syringe-needle U-100 1 mL #600 ea 04/07/22 08/25/22 Rx 31 gauge x 5/16" (BD Insulin Syringe Ultra-Fine) docusate sodium 100 mg capsule 100 mg PO BID #0 caps 05/02/22 08/25/22 Rx lisinopril 5 mg tablet 2.5 mg PO QAM #90 tabs 05/02/22 08/25/22 Rx sennosides 8.6 mg tablet (Senokot) 17.2 mg PO HS #0 tabs 05/02/22 08/25/22 Rx spironolactone 25 mg tablet 25 mg PO BID #180 tabs 06/07/22 08/25/22 Rx guaifenesin 600 mg tablet, 1,200 mg PO Q12 #14 tabs 08/05/22 08/25/22 Rx extended release 12 hr (Mucinex) rivaroxaban 15 mg tablet (Xarelto) 15 mg PO QPM 08/15/22 08/25/22 History bumetanide 1 mg tablet 1 mg PO DAILY 08/25/22 08/25/22 History insulin glargine 100 unit/mL (3 See Rx Instructions subcut BID 08/25/22 08/25/22 History mL) subcutaneous pen (Lantus Solostar U-100 Insulin) gabapentin 300 mg capsule 600 mg PO BID #360 caps 09/13/22 Rx duloxetine 60 mg capsule,delayed 60 mg PO QAM #90 caps 09/19/22 Rx release metoprolol succinate 100 mg 100 mg PO QAM #90 tabs 09/19/22 Rx tablet,extended release 24 hr montelukast 10 mg tablet 10 mg PO HS #90 tabs 09/19/22 Rx fenofibrate 54 mg tablet 54 mg PO HS #90 tabs 09/27/22 Rx Past Med/Surg History Medical History (Updated 10/01/22 @ 21:54 by Taylor Fowler DO) Anxiety Atrial fibrillation Reason for Xarelto Follows with [facility] C4 cervical fracture No surgical intervention. Full ROM. Occurred 2-3 years ago- no current issues CAD (coronary artery disease) S/p RCA PCI in 1991, 1998, and 2004- totaling 5 stents to prox and mid RCA S/p 3 vessel CABG 2008 Cardiomyopathy Carotid artery stenosis, asymptomatic No hemodynamically significant stenosis per 2019 CTA of neck to ICAs bilaterally CHF (congestive heart failure) Chronic kidney disease, stage III (moderate) CKD (chronic kidney disease) COVID-19 DM type 2 (diabetes mellitus, type 2) IDDM Dyslipidemia Dysphagia Occasional (per ) Encephalopathy Enlarged prostate without lower urinary tract symptoms (luts) Gastroparesis GERD (gastroesophageal reflux disease) Well controlled and stable Gross hematuria Hearing deficit [id number] History of traumatic brain injury 2018 (after fall down stairs) > subdural hematoma resolved without surgical intervention, no residual issues Hyperlipidemia Hypertension ICD (implantable cardioverter-defibrillator) in place [employer]. Implanted ~2017 for sustained VT Insomnia LBBB (left bundle branch block) Chronic dating back to at least 07/2019 EKG per charts PAD (peripheral artery disease) H/o of right SFA/TP trunk/PT angioplasty at [facility] (2011) Peripheral neuropathy Permanent atrial fibrillation Physical deconditioning Poor historian Sensorineural hearing loss of both ears Situational depression Sleep apnea Refuses device per records Spinal stenosis Subdural hematoma 2018 (after fall down stairs) > subdural hematoma resolved without surgical intervention, no residual issues 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, with long-term current use of insulin Venous insufficiency Surgical History History of anesthesia reaction Combative with emergence History of back surgery History of cardiac cath Multiple (hx stents) History of cataract surgery R/L History of cholecystectomy History of colonoscopy History of knee replacement Left Hx of angioplasty Hx of CABG CABG x3 (2008) S/P epidural steroid injection S/P ICD (internal cardiac defibrillator) procedure Family History Daughter Family history of reaction to anesthesia PONV Sister Cancer Father Family history of diabetes mellitus Grandmother (Maternal) Family history of diabetes mellitus Other No significant family history Denies family history of Ovarian cancer Prostate cancer Coronary heart disease Breast cancer Colorectal cancer Social History Smoking Status: Unknown if ever smoked Tobacco Type: Cigarettes Age Started Using Tobacco: 19; Age Quit Using Tobacco: 49; packs per day: 2; Second Hand Exposure: Yes (SPOUSE SMOKES (OUTSIDE)); Hx Alcohol Use: No Hx Substance Use: No Preferred Language: Tunisian Communication Ability: Impaired Visual Impairment: Limited Hearing Ability: Hard of Hearing Negative Cleaner Required: No Beliefs That Will Affect Care: None marital status: Current Living Situation: Spouse current occupational status: retired 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 Skin: warm, dry, scattered bruises and abrasions from various falls. Redness of left 2nd finger tip HEENT: NC/AT, PERRL, anicteric sclera, conjunctiva without injection, external ear normal to inspection and nontender, nares patent, moist mucus membranes, dentition intact, no oropharyngeal lesions, BiAP in place, neck supple, trachea midline, no LAD, no thyromegaly, no JVD, exam limited secondary to body habitus Heart: +S1/S2, regular, no m/r/g Lungs: equal air entry bilaterally, diminished in bilateral bases, no rhonchi/wheezes Abd: +BS, soft, NT/ND, no masses/organomegaly/ascites Ext: warm, 2+ pulses in UE/LE bilaterally, absence of several finger tips on left hand, 2+ edema of bilateral LE Neuro: somnolent, arousable to voice, PERRL, answers some questions and follows commands, moving all extremities with equal strength on command Results & Data Results & Data Vital Signs (Past 12 Hours) Vital Signs Temp Pulse Resp BP Pulse Ox O2 Del Method O2 Flow Rate 10/01/22 19:00 82 24 96 10/01/22 19:00 174/97 H 10/01/22 18:45 82 19 95 10/01/22 18:45 175/131 H 10/01/22 18:32 81 21 97 BiPAP 10/01/22 18:32 177/72 H 10/01/22 18:30 82 18 97 10/01/22 18:16 169/99 H 10/01/22 18:16 77 20 95 10/01/22 18:15 86 21 94 10/01/22 18:00 90 18 93 10/01/22 18:00 174/108 H 10/01/22 17:45 84 18 93 10/01/22 17:30 94 10/01/22 17:25 78 17 93 10/01/22 17:25 131/72 10/01/22 17:19 158/80 H 10/01/22 17:19 70 18 94 Oxymask 5 10/01/22 17:15 85 17 95 10/01/22 17:00 81 19 90 10/01/22 17:00 130/67 10/01/22 18:29 81 18 98 10/01/22 16:57 94 H 20 93 Oxymask 5 10/01/22 16:57 88 L Oxymask 0 10/01/22 16:39 33.9 C L 85 23 158/80 H 90 Oxymask 5 FiO2 10/01/22 19:00 10/01/22 19:00 10/01/22 18:45 10/01/22 18:45 10/01/22 18:32 10/01/22 18:32 10/01/22 18:30 10/01/22 18:16 10/01/22 18:16 10/01/22 18:15 10/01/22 18:00 10/01/22 18:00 10/01/22 17:45 10/01/22 17:30 10/01/22 17:25 10/01/22 17:25 10/01/22 17:19 10/01/22 17:19 10/01/22 17:15 10/01/22 17:00 10/01/22 17:00 10/01/22 18:29 60 10/01/22 16:57 10/01/22 16:57 10/01/22 16:39 Laboratory Results Laboratory Results WBC 12.71 K/ul (4.8-10.8) H 10/01/22 17:06 RBC 4.83 M/uL (4.70-6.10) 10/01/22 17:06 Hgb 14.3 g/dl (14.0-18.0) 10/01/22 17:06 Hct 44.5 % (42.0-52.0) 10/01/22 17:06 MCV 92.1 fL (80.0-100.0) 10/01/22 17:06 MCH 29.6 pg (25.0-34.0) 10/01/22 17:06 MCHC 32.1 g/dL (32.0-36.0) 10/01/22 17:06 RDW Std Deviation 55.2 fL (36.4-46.3) H 10/01/22 17:06 RDW Coeff of Paulo 16.4 % (11.5-14.5) H 10/01/22 17:06 Plt Count 413 K/uL (130-400) H 10/01/22 17:06 MPV 10.5 fL (9.4-12.4) 10/01/22 17:06 Immature Gran % (Auto) 0.4 % 10/01/22 17:06 Neut % (Auto) 81.5 % 10/01/22 17:06 Lymph % (Auto) 6.6 % 10/01/22 17:06 [place] % (Auto) 10.6 % 10/01/22 17:06 Eos % (Auto) 0.3 % 10/01/22 17:06 Baso % (Auto) 0.6 % 10/01/22 17:06 Neut # (Auto) 10.36 K/uL (1.40-6.50) H 10/01/22 17:06 Lymph # (Auto) 0.84 K/uL (1.2-3.4) L 10/01/22 17:06 [place] # (Auto) 1.35 K/uL (0.11-0.59) H 10/01/22 17:06 Eos # (Auto) 0.04 K/uL (0-0.50) 10/01/22 17:06 Baso # (Auto) 0.07 K/uL (0-0.2) 10/01/22 17:06 Immature Gran # (Auto) 0.05 K/uL (0.01-0.20) 10/01/22 17:06 PT 12.0 Seconds (9.0-12.0) 10/01/22 17:06 INR 1.1 (0.9-1.1) 10/01/22 17:06 APTT 33.0 Seconds (21.0-31.0) H 10/01/22 17:06 PTT Ratio 1.2 10/01/22 17:06 D-Dimer 1120 ug/L FEU (0-500) H* 10/01/22 17:06 ABG pH 7.40 (7.35-7.45) 10/01/22 19:55 ABG pCO2 64 mmHg (35-46) H 10/01/22 19:55 ABG pO2 108 mmHg (80-95) H 10/01/22 19:55 ABG HCO3 40 mmol/L (19-24) H 10/01/22 19:55 ABG O2 Saturation 98.7 % (90-95) H 10/01/22 19:55 ABG Base Excess 12.0 mEq/L (-9-1.8) H 10/01/22 19:55 Jeffrey Test Pos (Pos) 10/01/22 19:55 VBG pH 7.27 (7.36-7.41) L 10/01/22 17:46 VBG pCO2 87 mmHg (38-50) H 10/01/22 17:46 VBG pO2 51 mmHg 10/01/22 17:46 VBG HCO3 40 mmol/L 10/01/22 17:46 VBG O2 Saturation 74.8 % 10/01/22 17:46 VBG Base Excess 9.4 mEq/L 10/01/22 17:46 Oxygen Given 60% 10/01/22 19:55 Sodium 139 mmol/L (136-145) 10/01/22 17:06 Potassium 3.8 mmol/L (3.5-5.1) 10/01/22 17:06 Chloride 94 mmol/L (98-107) L 10/01/22 17:06 Carbon Dioxide 39 mmol/L (21-32) H 10/01/22 17:06 Anion Gap 6 (3-11) 10/01/22 17:06 BUN 25 mg/dl (6-23) H 10/01/22 17:06 Creatinine 1.51 mg/dl (0.6-1.4) H 10/01/22 17:06 Est Cr Clr Drug Dosing 47.6 ml/min 10/01/22 17:06 Est GFR ( Amer) 49.1 ml/min 10/01/22 17:06 Est GFR (Non-Af Amer) 42.4 ml/min 10/01/22 17:06 BUN/Creatinine Ratio 16.6 (10-20) 10/01/22 17:06 Glucose 84 mg/dl (70-99(Fasting)) 10/01/22 17:06 POC Glucose 155 mg/dl (70-99) H 10/01/22 18:26 Lactate 1.6 mmol/L (0.4-2.0) 10/01/22 17:06 Calcium 9.8 mg/dl (8.6-10.3) 10/01/22 17:06 Magnesium 2.1 mg/dl (1.7-2.4) 10/01/22 17:06 Total Bilirubin 0.8 mg/dl (0.2-1.0) 10/01/22 17:06 Direct Bilirubin 0.2 mg/dl (0-0.2) 10/01/22 17:06 AST 16 U/L (13-39) 10/01/22 17:06 ALT 9 U/L (7-52) 10/01/22 17:06 Alkaline Phosphatase 82 U/L (34-104) 10/01/22 17:06 Ammonia 53.0 umol/L (18-72) 10/01/22 17:46 Troponin I High Sens 27.3 pg/ml (0-20) H 10/01/22 17:06 Total Protein 8.2 gm/dl (6.0-8.3) 10/01/22 17:06 Albumin 4.1 gm/dl (3.4-5.0) 10/01/22 17:06 Procalcitonin 0.09 ng/ml (0-0.5) 10/01/22 17:06 TSH 2.926 uIu/ml (0.300-4.500) 10/01/22 17:06 Urine Color Yellow 10/01/22 18:23 Urine Appearance Clear (Clear) 10/01/22 18: Urine pH 7.5 (4.5-7.5) 10/01/22 18:23 Ur Specific [place] 1.017 (1.000-1.030) 10/01/22 18:23 Urine Protein 2+ (Negative) H 10/01/22 18:23 Urine Glucose (UA) Negative (Negative) 10/01/22 18:23 Urine Ketones Negative (Negative) 10/01/22 18:23 Urine Blood Negative (Negative) 10/01/22 18:23 Urine Nitrite Negative (Negative) 10/01/22 18:23 Urine Bilirubin Negative (Negative) 10/01/22 18:23 Urine Urobilinogen Negative (Negative) 10/01/22 18:23 Ur Leukocyte Esterase Negative (Negative) 10/01/22 18:23 Urine WBC (Auto) 0 /hpf (0-5) 10/01/22 18:23 Urine RBC (Auto) 0-4 /hpf (0-4) 10/01/22 18:23 U Hyaline Cast (Auto) 0 /lpf (0-5) 10/01/22 18:23 U Epithel Cells (Auto) 0-5 /lpf (0-5) 10/01/22 18:23 Urine Bacteria (Auto) Negative (Negative) 10/01/22 18:23 Urine Opiates Screen Neg (Neg) 10/01/22 18:23 Ur Methadone, Qual Neg (Neg) 10/01/22 18:23 Urine Barbiturates Neg (Neg) 10/01/22 18:23 Ur Phencyclidine (PCP) Neg (Neg) 10/01/22 18:23 U Amphetamin/Meth Scrn Neg (Neg) 10/01/22 18:23 MDMA (Ecstasy) Screen Neg (Neg) 10/01/22 18:23 U Benzodiazepines Scrn Neg (Neg) 10/01/22 18:23 Ur Cocaine Metabolite Neg (Neg) 10/01/22 18:23 U Marijuana (THC) Screen Neg (Neg) 10/01/22 18:23 Ethyl Alcohol mg/dL < 10.0 mg/dl (<10.0) 10/01/22 17:06 SARS-CoV-2 (PCR) POSITIVE (Negative) A* 10/01/22 18:56 Influenza Type A (PCR) Negative (Neg) 10/01/22 18:56 Influenza Type B (PCR) Negative (Neg) 10/01/22 18:56 RSV (RT-PCR) Negative (Neg) 10/01/22 18:[address] 10/01/22 17:23 CT SCAN OF THE CERVICAL SPINE CLINICAL HISTORY: Change in mental status. COMPARISON STUDY: CT of the cervical spine dated 05/15/2018. TECHNIQUE: CT scan of the cervical spine is performed from the skull base to the upper thoracic spine. Images are reviewed in the axial, sagittal, and coronal planes. IV contrast was not administered for this examination. A dose lowering technique was utilized adhering to the principles of ALARA. CT DOSE: 3687.50 mGy.cm FINDINGS: Skeletal structures: The skeletal structures are osteopenic. There is no evidence of fracture or subluxation involving the cervical spine. Vertebral body height and alignment are maintained. There is straightening of the cervical lordosis. Anterior osteophytes are seen throughout. The odontoid process and lateral masses are intact. The atlantoaxial articulation is preserved noting productive degenerative change. The spinous processes appear intact. There is moderate multilevel cervical spondylosis. Uncovertebral and facet arthropathy contribute to neural foraminal narrowing at several levels. Intervertebral discs: There is mild multilevel degenerative disc space narrowing, greatest at C5-C6. Central canal: Posterior disc osteophyte complexes at C4-C5, C5-C6, and C6-C7 may contribute to acquired compromise of the central canal. Soft tissues: The prevertebral and paraspinous soft tissues are within normal limits. There is atherosclerotic calcification of the carotid bulbs. There are pacemaker leads at the left thoracic inlet. Calvarium: The visualized calvarium at the skull base appears intact. Brain parenchyma: Partially visualized brain parenchyma at the skull base is within normal limits. Sinuses and mastoids: The visualized paranasal sinuses are clear. The mastoid air cells are well pneumatized. Lung apices: Moderate to large pleural effusions are partially visualized. . IMPRESSION: 1. There is no evidence of fracture or subluxation involving the cervical spine. 2. Osteopenia and spondylitic change as above. 3. Moderate to large pleural effusions are partially imaged. ACT 112: Negative or not required by law. Electronically signed by: Hiram Leal M.D. 10/01/2022 5:57 PM Chest X-Ray 10/01/22 17:23 SINGLE VIEW CHEST CLINICAL HISTORY: Sepsis. FINDINGS: An AP, portable, upright chest radiograph is compared to study dated 08/03/2022. Correlation is made with chest CT dated 09/20/2019. The examination is degraded by portable technique and patient rotation. The patient is status post midline sternotomy. A single-lead cardiac AICD is unchanged in position and partially obscures the left mid chest. The heart is enlarged noting atherosclerotic calcification of the thoracic aorta. There is pulmonary vascular congestion with evidence of interstitial edema. There are layering pleural effusions with dependent consolidation. No pneumothorax is seen. The skeletal structures are osteopenic. The bony thorax is grossly intact. IMPRESSION: 1. Cardiomegaly and AICD without evidence of congestive failure and pulmonary edema. 2. Layering pleural effusions with dependent consolidation. ACT 112: Negative or not required by law. Electronically signed by: Hiram Leal M.D. 10/01/2022 6:[address] 10/01/22 17:23 CT SCAN OF THE BRAIN WITHOUT IV CONTRAST CLINICAL HISTORY: Change in mental status. COMPARISON STUDY: CT of the brain dated 07/24/2022. TECHNIQUE: Unenhanced axial CT scan of the brain is performed from the vertex to the skull base. A dose lowering technique was utilized adhering to the principles of ALARA. The patient was scanned twice due to motion artifact. FINDINGS: Brain parenchyma: There is age-related involutional change noting moderate subcortical and periventricular microangiopathic disease. There is no hemorrhage, mass effect, or evidence of acute territorial ischemia by CT criteria. Kumar-white matter differentiation is preserved. No extra-axial fluid collection is seen. Ventricles, sulci, cisterns: Prominent secondary to involutional change. Intracranial vasculature: There is atherosclerotic calcification of the cavernous carotid and vertebral arteries. Calvarium: Unremarkable. Soft tissues: Induration within the left suboccipital scalp is unchanged. Sinuses and mastoids: The paranasal sinuses are clear. The mastoid air cells are well pneumatized. Orbits: The bony orbits are grossly intact. There are bilateral ocular lens implants. IMPRESSION: There is no hemorrhage, mass effect, or evidence of acute territorial ischemia by CT criteria noting a motion degraded examination. ACT 112: Negative or not required by law. Electronically signed by: Hiram Leal M.D. 10/01/2022 5:51 PM Code Status & VTE Plan VTE Prophylaxis Plan VTE Prophylaxis will be ordered: Yes PG Care Time/CCT Total # of Minutes Spent Total Time Spent with Patient: Total time spent is greater than 50% in coordination of care (as documented) at patient's floor/unit and/or counseling patient: Coding Level of Care Code 11035 INT INP/OBS CARE MIN Diagnoses Hypoglycemia E16.2 Hypothermia T68.XXXA Encounter type: initial encounter Metabolic encephalopathy G93.41 Acute respiratory failure with hypoxia and hypercapnia J96.01; J96.02 COVID-19 U07.1 Chronic HFrEF (heart failure with reduced ejection fraction) I50.22 Atrial fibrillation I48.11 Atrial fibrillation type: longstanding persistent DM type 2 (diabetes mellitus, type 2) E11.9 CAD (coronary artery disease) I25.10 (2) Hypothermia Encounter type: initial encounter Qualified Code(s): T68.XXXA - Hypothermia, initial encounter (7) Atrial fibrillation Atrial fibrillation type: longstanding persistent Qualified Code(s): I48.11 - Longstanding persistent atrial fibrillation
[2022-10-01] MEDS ORDERED: GLUCAGON FOR INJ 1 MG VIAL SQ PRN (23:00)
[2022-10-01] MEDS ORDERED: ACETAMINOPHEN 325 MG TAB PO PRN (23:00)
[2022-10-01] MEDS ORDERED: CARBOHYDRATES FOR HYPOGLYCEMIA PO PRN (23:00)
[2022-10-01] MEDS ORDERED: GLUCOSE 10 TAB/TUBE PO PRN (23:00)
[2022-10-01] MEDS ORDERED: GLUCOSE 40% GEL 15 GM TUBE PO PRN (23:00)
[2022-10-01] MEDS ORDERED: PHARMACY GLYCEMIC MGMT CONSULT PRN (23:00)
[2022-10-01] MEDS ORDERED: DEXTROSE 50% 50 ML SYRINGE IV PRN (23:00)
[2022-10-01] MEDS ORDERED: ONDANSETRON INJ 2 MG/ML 2 ML VIAL IV PRN (23:00)
[2022-10-01] MEDS ORDERED: PIPERACILLIN/TAZOBACTAM 4.5 GM in DEXTROSE 5% 100 ML IV ONE (23:30)
[2022-10-01] MEDS: GABAPENTIN 300 MG CAP PO SCH (23:48)
[2022-10-01] MEDS: MONTELUKAST SODIUM 10 MG TABLET PO SCH (23:48)
[2022-10-01] MEDS: DOCUSATE SODIUM 100 MG CAP PO SCH (23:48)
[2022-10-01] MEDS: SENNA 8.6 MG TAB PO SCH (23:48)
[2022-10-01] MEDS: SPIRONOLACTONE 25 MG TAB PO SCH (23:48)
[2022-10-01] MEDS: ATORVASTATIN 40 MG TAB PO SCH (23:49)
[2022-10-01] MEDS: RIVAROXABAN 15 MG TAB PO SCH (23:49)
[2022-10-01 23:53] LABS: Phosphorus 3.6 mg/dl (2.5-4.9)
[2022-10-01 23:59] LABS: Troponin I High Sensitivity 27.7 pg/ml (0-20)
[2022-10-02] MEDS: PIPERACILLIN/TAZOBACTAM 4.5 GM in DEXTROSE 5% 100 ML IV SCH ×2 (05:45→13:43)
[2022-10-02 06:34] LABS: Hematocrit (blood only) 41.4 % (42.0-52.0); Mean Corpuscular Hemoglobin 29.1 pg (25.0-34.0); Mean Corpuscular Hgb Conc 31.4 g/dL (32.0-36.0); Mean Corpuscular Volume 92.6 fL (80.0-100.0); Mean Platelet Volume 10.6 fL (9.4-12.4); Platelet Count 384 K/uL (130-400); RDW Coefficient of Variation 16.1 % (11.5-14.5); RDW Standard Deviation 54.4 fL (36.4-46.3); Red Blood Count 4.47 M/uL (4.70-6.10)
[2022-10-02 06:54] LABS: Albumin Level 3.4 gm/dl (3.4-5.0); Bilirubin Direct 0.2 mg/dl (0-0.2); Calcium 9.4 mg/dl (8.6-10.3); Creatinine Clr Calc Pharmacy 61.1 ml/min; Est GFR (African American) 63.6 ml/min; Est GFR (Non-African American) 54.9 ml/min; Potassium 4.3 mmol/L (3.5-5.1)
[2022-10-02 06:59] LABS: Troponin I High Sensitivity 30.5 pg/ml (0-20)
[2022-10-02] MEDS: INSULIN ASPART PER UNIT CHARGE SC SCH ×5 (08:16→21:09)
[2022-10-02] MEDS: ASPIRIN 81 MG ECTAB PO SCH (08:36)
[2022-10-02] MEDS: PANTOprazole 40 MG TAB PO SCH (08:36)
[2022-10-02] MEDS: SPIRONOLACTONE 25 MG TAB PO SCH ×2 (08:36→20:39)
[2022-10-02] MEDS: DULoxetine HCL 60 MG CAP PO SCH (08:36)
[2022-10-02] MEDS: lisinopril 2.5 MG TAB PO SCH (08:36)
[2022-10-02] MEDS: DOCUSATE SODIUM 100 MG CAP PO SCH ×2 (08:37→20:35)
[2022-10-02] MEDS: GABAPENTIN 300 MG CAP PO SCH ×2 (08:37→20:36)
[2022-10-02] MEDS: METOPROLOL SUCC 50MG EXT REL TAB PO SCH (08:37)
[2022-10-02] MEDS: BUMETANIDE 1 MG in SYRINGE 0 ML IV SCH ×2 (08:37→17:27)
--- NOTE | 2022-10-02 10:47 | XRay Report ---
XR hand LT min 3V routine CLINICAL HISTORY: ?osteomyelitis TECHNIQUE: 3 views of the left hand were obtained. 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 Degenerative changes are seen in the joints. There is irre gularity and possible erosion the third digit middle phalanx and second digit distal phalanx. Erosion of the fourth digit distal phalanx cannot be entirely excluded. IMPRESSION: Patient is status post amputation of multiple previous, some of which are in the interval. Comparison is therefore limited. There are questionable erosive changes in the second, third, and fourth digits . Of note, MRI is a more sensitive modality for osteomyelitis. ACT 112: Negative or not required by law. Electronically signed by: Frantz Newsome M.D. 10/02/2022 10:44 AM
[2022-10-02 12:25] LABS: Estimated Average Glucose 217 mg/dl; Hemoglobin A1C 9.2 % (4.5-5.6)
--- NOTE | 2022-10-02 12:32 | Electrocardiogram Report ---
Test Reason : Blood Pressure : / mmHG Vent. Rate : 083 BPM Atrial Rate : 086 BPM P-R Int : 000 ms QRS Dur : 164 ms QT Int : 456 ms P-R-T Axes : 000 -31 135 degrees QTc Int : 535 ms Atrial fibrillation Left axis deviation Left bundle branch block Abnormal ECG When compared with ECG of 24-JUL-2022 20:56, T wave inversion more evident in Lateral leads Confirmed by Vadim Arango ([id number]) on 10/02/2022 12:32:33 PM Referred By: Riri Coreas Confirmed By:Vadim Arango
--- NOTE | 2022-10-02 14:03 | Pharmacy Report ---
Pharmacy Glycemic Short Note 2 - Date of Service October 02, 2022 - Glycemic Short BSG Results (Last 24 hours): 10/01/22 10/01/22 10/01/22 17:04 17:06 17:20 Glucose 84 POC Glucose 98 180 H 10/01/22 10/01/22 10/01/22 18:26 21:46 23:22 Glucose POC Glucose 155 H 78 83 10/02/22 10/02/22 10/02/22 01:58 03:37 05:44 Glucose 95 POC Glucose 87 104 H 10/02/22 10/02/22 10/02/22 08:01 10:52 12:06 Glucose POC Glucose 94 118 H 121 H 10/02/22 13:43 Glucose POC Glucose 171 H OUTPATIENT ANTIDIABETIC REGIMEN: * Lantus 80 units bid, novolog 65 units QID + SSI--> taken from last admission will need to clarify with patient once alert/oriented * A1c 9.2 ASSESSMENT: * 81 year old with episode of hypoglycemia outpatient, was found with BSGs in t he 30s. Unclear per notes how much insulin he took. Patient previously admitted in July. During that time he was only requiring ~30 units-40 units of insulin per day * Fasting BSG this AM 95 mg/dL - no PO intake documented today * Will trial stress of 2 for novolog. Will have conservative scale for basal at HS 0-10 units PLAN FOR INPATIENT GLYCEMIC CONTROL: * Hold outpatient oral diabetes medications * Basal insulin * Lantus 0-10 units HS based upon BSG value * Bolus insulin * NovoLog per scale ACHS or Q6hrs while NPO * Goal Range: Low 110 mg/dL - High 140 mg/dL * Correction Factor: 20 mg/dL/unit * Nutritional / Prandial insulin per carb ratio of 1 unit per 7 grams CHO consumed
--- NOTE | 2022-10-02 15:01 | Hospitalist Progress Note ---
Date of Service October 02, 2022 Assessment & Plan (1) Hypoglycemia: Plan: Blood sugar reportedly in the low 30s prior to arrival. Uncertain about the dose and timing of his insulin Considering accidental insulin overdose is a possibility Pharmacy managing glycemic control A1c 9.2 -Patient should have his Dexcom assessed prior to discharge as daughter states it has not been correlating with fingersticks. (2) Hypothermia: Plan: Patient hypothermic on arrival - rectal temperature of 33.9. Daughter states that he was clothed and the house was warm when he was found down. Hypothermia may be secondary to patient's severe hypoglycemia vs sepsis. TSH is WNL. Not hypothermic anymore Most likely secondary to hypoglycemia Empiric Zosyn for possible sepsis for now (3) Metabolic encephalopathy: Plan: Resolved Likely secondary to hypoglycemia (4) Acute respiratory failure with hypoxia and hypercapnia: Plan: Patient has been weaned off of BiPAP Now on 6 L of oxygen, satting 98% Titrate down O2 (5) COVID-19: Plan: Patient was hospitalized at [facility] from 07/25 --> 08/05 with Covid-19. He tests POSITIVE on admission on PCR testing which may remain positive for months after initial infection. Most likely represents persistent positive PCR testing rather than true new Covid infection. However, patient presented with acute hypoxic respiratory failure. Will maintain isolation precautions for now -Covid-isolation -Supplemental O2 as needed (6) Chronic HFrEF (heart failure with reduced ejection fraction): Plan: Patient with history of chronic HFrEF, prior sustained VT s/p ICD placement. Daughter reports patient has been retaining fluid for the last week. CXR with bilateral layering pleural effusions. Uncertain if he is compliant with his home medications -Continue Bumex 1mg IV BID Lower extremity edema is much improved but patient still has right lower extremity edema. This could be because he is laying sideways on his right side. Check venous duplex ultrasound to rule out DVT -Continue Spironolactone 25mg po BID -Monitor intake and output -Daily weights (7) Atrial fibrillation: Plan: Chronic. Overall rate controlled. Anticoagulated on Rivaroxaban -Continue Rivaroxaban 15mg po qPM -Continue Metoprolol 100mg po qAM -Telemetry monitoring (8) DM type 2 (diabetes mellitus, type 2): Plan: With hypoglycemia as above -Check HgbA1C -Holding insulin for now -Pharmacy glycemic management consultation appreciated -Continue Gabapentin for diabetic neuropathy (9) CAD (coronary artery disease): Plan: Patient with history of CAD s/p CABG x 3V. He follows with Cardiology. Mildly elevated troponin at 27.3. No acute changes on EKG -Trend troponin -Telemetry monitoring -Continue ASA, Atorvastatin, Lisinopril, Metoprolol F/E/N - Diuresis with Bumex 1mg IV BID, monitor electrolytes, Regular diet if mental status improves Ppx - Continue Rivaroxaban Code - Patient has extensively discussed his goals of care with his daughter. He is DNR/DNI. He has reported on multiple occasions that he does not want aggressive treatments, hospitalizations, rehab or placement. Daughter mentioned possibility of comfort care measures during this hospitalization. However, as patient is improving with use of BiPAP will continue to treat as above. Daughter states that she does not want any escalation of care to include pressors, lines, intubations. She is agreeable to antibiotics, diuretics and BiPAP for now. As patient becomes more lucid may wish to further address these issues. Admission and Anticipated Discharge Date Admission Date: October 01, 2022 Subjective Patient feels better today. He says that he is not sure if he overdosed on his insulin. Review of Systems Review of Systems: All systems reviewed & are unremarkable except as noted in Subjective Physical Exam Physical Exam: General: Awake, conversant Heart: S1, S2/regular rate and rhythm, no murmur rubs or gallops Lungs: Diminished breath sounds bilaterally. Normal effort Abdomen: Soft/nontender/nondistended. No hepatosplenomegaly Extremities: No clubbing/cyanosis. Right lower extremity edema Behavior: Appropriate, cooperative Results & Data Results & Data Vital Signs (Past 12 Hours) Vital Signs Temp Pulse Resp BP Pulse Ox O2 Del Method O2 Flow Rate 10/02/22 13:46 98 High Flow Nasal Cannula 6 10/02/22 12:45 98 High Flow Nasal Cannula 8 10/02/22 12:00 99 High Flow Nasal Cannula 10 10/02/22 10:53 36.5 C 89 22 161/83 H 94 High Flow Nasal Cannula 14 10/02/22 08:00 High Flow Nasal Cannula 14 10/02/22 08:13 36.5 C 99 H 19 147/68 H 93 High Flow Nasal Cannula 12 10/02/22 03:07 36.4 C L 106 H 22 126/71 96 Oxymask Laboratory Results Abnormal lab results 10/01/22 10/01/22 10/01/22 Range/Units 17:06 17:06 17:06 WBC 12.71 H (4.8-10.8) K/ul RBC (4.70-6.10) M/uL Hgb (14.0-18.0) g/dl Hct (42.0-52.0) % MCHC (32.0-36.0) g/dL RDW Std Deviation 55.2 H (36.4-46.3) fL RDW Coeff of Paulo 16.4 H (11.5-14.5) % Plt Count 413 H (130-400) K/uL Neut # (Auto) 10.36 H (1.40-6.50) K/uL Lymph # (Auto) 0.84 L (1.2-3.4) K/uL [place] # (Auto) 1.35 H (0.11-0.59) K/uL APTT 33.0 H (21.0-31.0) Seconds D-Dimer 1120 H* (0-500) ug/L FEU ABG pCO2 (35-46) mmHg ABG pO2 (80-95) mmHg ABG HCO3 (19-24) mmol/L ABG O2 Saturation (90-95) % ABG Base Excess (-9-1.8) mEq/L VBG pH (7.36-7.41) VBG pCO2 (38-50) mmHg Chloride 94 L (98-107) mmol/L Carbon Dioxide 39 H (21-32) mmol/L BUN 25 H (6-23) mg/dl Creatinine 1.51 H (0.6-1.4) mg/dl POC Glucose (70-99) mg/dl Hemoglobin A1c (4.5-5.6) % ALT (7-52) U/L Troponin I High Sens 27.3 H (0-20) pg/ml B-Natriuretic Peptide (0-100) pg/ml Urine Protein (Negative) SARS-CoV-2 (PCR) (Negative) 10/01/22 10/01/22 10/01/22 Range/Units 17:20 17:46 18:23 WBC (4.8-10.8) K/ul RBC (4.70-6.10) M/uL Hgb (14.0-18.0) g/dl Hct (42.0-52.0) % MCHC (32.0-36.0) g/dL RDW Std Deviation (36.4-46.3) fL RDW Coeff of Paulo (11.5-14.5) % Plt Count (130-400) K/uL Neut # (Auto) (1.40-6.50) K/uL Lymph # (Auto) (1.2-3.4) K/uL [place] # (Auto) (0.11-0.59) K/uL APTT (21.0-31.0) Seconds D-Dimer (0-500) ug/L FEU ABG pCO2 (35-46) mmHg ABG pO2 (80-95) mmHg ABG HCO3 (19-24) mmol/L ABG O2 Saturation (90-95) % ABG Base Excess (-9-1.8) mEq/L VBG pH 7.27 L (7.36-7.41) VBG pCO2 87 H (38-50) mmHg Chloride (98-107) mmol/L Carbon Dioxide (21-32) mmol/L BUN (6-23) mg/dl Creatinine (0.6-1.4) mg/dl POC Glucose 180 H (70-99) mg/dl Hemoglobin A1c (4.5-5.6) % ALT (7-52) U/L Troponin I High Sens (0-20) pg/ml B-Natriuretic Peptide (0-100) pg/ml Urine Protein 2+ H (Negative) SARS-CoV-2 (PCR) (Negative) 10/01/22 10/01/22 10/01/22 Range/Units 18:26 18:56 19:55 WBC (4.8-10.8) K/ul RBC (4.70-6.10) M/uL Hgb (14.0-18.0) g/dl Hct (42.0-52.0) % MCHC (32.0-36.0) g/dL RDW Std Deviation (36.4-46.3) fL RDW Coeff of Paulo (11.5-14.5) % Plt Count (130-400) K/uL Neut # (Auto) (1.40-6.50) K/uL Lymph # (Auto) (1.2-3.4) K/uL [place] # (Auto) (0.11-0.59) K/uL APTT (21.0-31.0) Seconds D-Dimer (0-500) ug/L FEU ABG pCO2 64 H (35-46) mmHg ABG pO2 108 H (80-95) mmHg ABG HCO3 40 H (19-24) mmol/L ABG O2 Saturation 98.7 H (90-95) % ABG Base Excess 12.0 H (-9-1.8) mEq/L VBG pH (7.36-7.41) VBG pCO2 (38-50) mmHg Chloride (98-107) mmol/L Carbon Dioxide (21-32) mmol/L BUN (6-23) mg/dl Creatinine (0.6-1.4) mg/dl POC Glucose 155 H (70-99) mg/dl Hemoglobin A1c (4.5-5.6) % ALT (7-52) U/L Troponin I High Sens (0-20) pg/ml B-Natriuretic Peptide (0-100) pg/ml Urine Protein (Negative) SARS-CoV-2 (PCR) POSITIVE A* (Negative) 10/01/22 10/01/22 10/02/22 Range/Units 23:19 23:19 03:37 WBC (4.8-10.8) K/ul RBC (4.70-6.10) M/uL Hgb (14.0-18.0) g/dl Hct (42.0-52.0) % MCHC (32.0-36.0) g/dL RDW Std Deviation (36.4-46.3) fL RDW Coeff of Paulo (11.5-14.5) % Plt Count (130-400) K/uL Neut # (Auto) (1.40-6.50) K/uL Lymph # (Auto) (1.2-3.4) K/uL [place] # (Auto) (0.11-0.59) K/uL APTT (21.0-31.0) Seconds D-Dimer (0-500) ug/L FEU ABG pCO2 (35-46) mmHg ABG pO2 (80-95) mmHg ABG HCO3 (19-24) mmol/L ABG O2 Saturation (90-95) % ABG Base Excess (-9-1.8) mEq/L VBG pH (7.36-7.41) VBG pCO2 (38-50) mmHg Chloride (98-107) mmol/L Carbon Dioxide (21-32) mmol/L BUN (6-23) mg/dl Creatinine (0.6-1.4) mg/dl POC Glucose 104 H (70-99) mg/dl Hemoglobin A1c (4.5-5.6) % ALT (7-52) U/L Troponin I High Sens 27.7 H (0-20) pg/ml B-Natriuretic Peptide 190 H (0-100) pg/ml Urine Protein (Negative) SARS-CoV-2 (PCR) (Negative) 10/02/22 10/02/22 10/02/22 Range/Units 05:44 05:44 05:44 WBC 15.40 H (4.8-10.8) K/ul RBC 4.47 L (4.70-6.10) M/uL Hgb 13.0 L (14.0-18.0) g/dl Hct 41.4 L (42.0-52.0) % MCHC 31.4 L (32.0-36.0) g/dL RDW Std Deviation 54.4 H (36.4-46.3) fL RDW Coeff of Paulo 16.1 H (11.5-14.5) % Plt Count (130-400) K/uL Neut # (Auto) (1.40-6.50) K/uL Lymph # (Auto) (1.2-3.4) K/uL [place] # (Auto) (0.11-0.59) K/uL APTT (21.0-31.0) Seconds D-Dimer (0-500) ug/L FEU ABG pCO2 (35-46) mmHg ABG pO2 (80-95) mmHg ABG HCO3 (19-24) mmol/L ABG O2 Saturation (90-95) % ABG Base Excess (-9-1.8) mEq/L VBG pH (7.36-7.41) VBG pCO2 (38-50) mmHg Chloride 97 L (98-107) mmol/L Carbon Dioxide 37 H (21-32) mmol/L BUN (6-23) mg/dl Creatinine (0.6-1.4) mg/dl POC Glucose (70-99) mg/dl Hemoglobin A1c 9.2 H (4.5-5.6) % ALT 6 L (7-52) U/L Troponin I High Sens 30.5 H (0-20) pg/ml B-Natriuretic Peptide (0-100) pg/ml Urine Protein (Negative) SARS-CoV-2 (PCR) (Negative) 10/02/22 10/02/22 10/02/22 Range/Units 10:45 10:52 12:06 WBC (4.8-10.8) K/ul RBC (4.70-6.10) M/uL Hgb (14.0-18.0) g/dl Hct (42.0-52.0) % MCHC (32.0-36.0) g/dL RDW Std Deviation (36.4-46.3) fL RDW Coeff of Paulo (11.5-14.5) % Plt Count (130-400) K/uL Neut # (Auto) (1.40-6.50) K/uL Lymph # (Auto) (1.2-3.4) K/uL [place] # (Auto) (0.11-0.59) K/uL APTT (21.0-31.0) Seconds D-Dimer (0-500) ug/L FEU ABG pCO2 (35-46) mmHg ABG pO2 (80-95) mmHg ABG HCO3 (19-24) mmol/L ABG O2 Saturation (90-95) % ABG Base Excess (-9-1.8) mEq/L VBG pH (7.36-7.41) VBG pCO2 (38-50) mmHg Chloride (98-107) mmol/L Carbon Dioxide (21-32) mmol/L BUN (6-23) mg/dl Creatinine (0.6-1.4) mg/dl POC Glucose 118 H 121 H (70-99) mg/dl Hemoglobin A1c (4.5-5.6) % ALT (7-52) U/L Troponin I High Sens 30.3 H (0-20) pg/ml B-Natriuretic Peptide (0-100) pg/ml Urine Protein (Negative) SARS-CoV-2 (PCR) (Negative) 10/02/22 Range/Units 13:43 WBC (4.8-10.8) K/ul RBC (4.70-6.10) M/uL Hgb (14.0-18.0) g/dl Hct (42.0-52.0) % MCHC (32.0-36.0) g/dL RDW Std Deviation (36.4-46.3) fL RDW Coeff of Paulo (11.5-14.5) % Plt Count (130-400) K/uL Neut # (Auto) (1.40-6.50) K/uL Lymph # (Auto) (1.2-3.4) K/uL [place] # (Auto) (0.11-0.59) K/uL APTT (21.0-31.0) Seconds D-Dimer (0-500) ug/L FEU ABG pCO2 (35-46) mmHg ABG pO2 (80-95) mmHg ABG HCO3 (19-24) mmol/L ABG O2 Saturation (90-95) % ABG Base Excess (-9-1.8) mEq/L VBG pH (7.36-7.41) VBG pCO2 (38-50) mmHg Chloride (98-107) mmol/L Carbon Dioxide (21-32) mmol/L BUN (6-23) mg/dl Creatinine (0.6-1.4) mg/dl POC Glucose 171 H (70-99) mg/dl Hemoglobin A1c (4.5-5.6) % ALT (7-52) U/L Troponin I High Sens (0-20) pg/ml B-Natriuretic Peptide (0-100) pg/ml Urine Protein (Negative) SARS-CoV-2 (PCR) (Negative) Diagnostic Findings Cervical Spine CT 10/01/22 17:23 CT SCAN OF THE CERVICAL SPINE CLINICAL HISTORY: Change in mental status. COMPARISON STUDY: CT of the cervical spine dated 05/15/2018. TECHNIQUE: CT scan of the cervical spine is performed from the skull base to the upper thoracic spine. Images are reviewed in the axial, sagittal, and coronal planes. IV contrast was not administered for this examination. A dose lowering technique was utilized adhering to the principles of ALARA. CT DOSE: 3687.50 mGy.cm FINDINGS: Skeletal structures: The skeletal structures are osteopenic. There is no evidence of fracture or subluxation involving the cervical spine. Vertebral body height and alignment are maintained. There is straightening of the cervical lordosis. Anterior osteophytes are seen throughout. The odontoid process and lateral masses are intact. The atlantoaxial articulation is preserved noting productive degenerative change. The spinous processes appear intact. There is moderate multilevel cervical spondylosis. Uncovertebral and facet arthropathy contribute to neural foraminal narrowing at several levels. Intervertebral discs: There is mild multilevel degenerative disc space narrowing, greatest at C5-C6. Central canal: Posterior disc osteophyte complexes at C4-C5, C5-C6, and C6-C7 may contribute to acquired compromise of the central canal. Soft tissues: The prevertebral and paraspinous soft tissues are within normal limits. There is atherosclerotic calcification of the carotid bulbs. There are pacemaker leads at the left thoracic inlet. Calvarium: The visualized calvarium at the skull base appears intact. Brain parenchyma: Partially visualized brain parenchyma at the skull base is within normal limits. Sinuses and mastoids: The visualized paranasal sinuses are clear. The mastoid air cells are well pneumatized. Lung apices: Moderate to large pleural effusions are partially visualized. . IMPRESSION: 1. There is no evidence of fracture or subluxation involving the cervical spine. 2. Osteopenia and spondylitic change as above. 3. Moderate to large pleural effusions are partially imaged. ACT 112: Negative or not required by law. Electronically signed by: Hiram Lael M.D. 10/01/2022 5:57 PM Chest X-Ray 10/01/22 17:23 SINGLE VIEW CHEST CLINICAL HISTORY: Sepsis. FINDINGS: An AP, portable, upright chest radiograph is compared to study dated 08/03/2022. Correlation is made with chest CT dated 09/20/2019. The examination is degraded by portable technique and patient rotation. The patient is status post midline sternotomy. A single-lead cardiac AICD is unchanged in position and partially obscures the left mid chest. The heart is enlarged noting atherosclerotic calcification of the thoracic aorta. There is pulmonary vascular congestion with evidence of interstitial edema. There are layering pleural effusions with dependent consolidation. No pneumothorax is seen. The skeletal structures are osteopenic. The bony thorax is grossly intact. IMPRESSION: 1. Cardiomegaly and AICD without evidence of congestive failure and pulmonary edema. 2. Layering pleural effusions with dependent consolidation. ACT 112: Negative or not required by law. Electronically signed by: Hiram Leal M.D. 10/01/2022 6:[address] 10/01/22 17:23 CT SCAN OF THE BRAIN WITHOUT IV CONTRAST CLINICAL HISTORY: Change in mental status. COMPARISON STUDY: CT of the brain dated 07/24/2022. TECHNIQUE: Unenhanced axial CT scan of the brain is performed from the vertex to the skull base. A dose lowering technique was utilized adhering to the principles of ALARA. The patient was scanned twice due to motion artifact. FINDINGS: Brain parenchyma: There is age-related involutional change noting moderate subcortical and periventricular microangiopathic disease. There is no hemorrhage, mass effect, or evidence of acute territorial ischemia by CT criteria. Kumar-white matter differentiation is preserved. No extra-axial fluid collection is seen. Ventricles, sulci, cisterns: Prominent secondary to involutional change. Intracranial vasculature: There is atherosclerotic calcification of the cavernous carotid and vertebral arteries. Calvarium: Unremarkable. Soft tissues: Induration within the left suboccipital scalp is unchanged. Sinuses and mastoids: The paranasal sinuses are clear. The mastoid air cells are well pneumatized. Orbits: The bony orbits are grossly intact. There are bilateral ocular lens implants. IMPRESSION: There is no hemorrhage, mass effect, or evidence of acute territorial ischemia by CT criteria noting a motion degraded examination. ACT 112: Negative or not required by law. Electronically signed by: Hiram Leal M.D. 10/01/2022 5:51 PM Hand X-Ray 10/01/22 23:00 XR hand LT min 3V routine CLINICAL HISTORY: ?osteomyelitis TECHNIQUE: 3 views of the left hand were obtained. 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 Degenerative changes are seen in the joints. There is irregularity and possible erosion the third digit middle phalanx and second digit distal phalanx. Erosion of the fourth digit distal phalanx cannot be entirely excluded. IMPRESSION: Patient is status post amputation of multiple previous, some of which are in the interval. Comparison is therefore limited. There are questionable erosive changes in the second, third, and fourth digits. Of note, MRI is a more sensitive modality for osteomyelitis. ACT 112: Negative or not required by law. Electronically signed by: Frantz Newsome M.D. 10/02/2022 10:44 AM PG Care Time/CCT Total # of Minutes Spent Total Time Spent with Patient: Total time spent is greater than 50% in coordination of care (as documented) at patient's floor/unit and/or counseling patient: Coding Level of Care Code 32630 SUB INP/OBS CARE 2/35MIN Diagnoses Hypoglycemia E16.2 Hypothermia T68.XXXA Encounter type: initial encounter Metabolic encephalopathy G93.41 Acute respiratory failure with hypoxia and hypercapnia J96.01; J96.02 COVID-19 U07.1 Chronic HFrEF (heart failure with reduced ejection fraction) I50.22 Atrial fibrillation I48.11 Atrial fibrillation type: longstanding persistent DM type 2 (diabetes mellitus, type 2) E11.9 CAD (coronary artery disease) I25.10 (2) Hypothermia Encounter type: initial encounter Qualified Code(s): T68.XXXA - Hypothermia, initial encounter (7) Atrial fibrillation Atrial fibrillation type: longstanding persistent Qualified Code(s): I48.11 - Longstanding persistent atrial fibrillation
[2022-10-02] MEDS: RIVAROXABAN 15 MG TAB PO SCH (17:27)
[2022-10-02] MEDS: ATORVASTATIN 40 MG TAB PO SCH (20:35)
[2022-10-02] MEDS: SENNA 8.6 MG TAB PO SCH (20:37)
[2022-10-02] MEDS: MONTELUKAST SODIUM 10 MG TABLET PO SCH (20:37)
[2022-10-02] MEDS ORDERED: LANTUS PER UNIT CHARGE SQ SCH (21:00)
--- NOTE | 2022-10-02 23:30 | Ultrasound Report ---
Exam(s): US VENOUS RIGHT LOWER EXTREMITY EXAM: US Duplex Right Lower Extremity Veins CLINICAL HISTORY: Reason for exam: Right lower extremity swelling, rule out DVT. TECHNIQUE: Real-time duplex ultrasound scan of the right lower extremity veins integrating B-mode two-dimensional vascular structure, Doppler spectral analysis, color flow Doppler imaging and compression. COMPARISON: No relevant prior studies available. FINDINGS: Deep veins: Unremarkable. No DVT in the visualized common femoral, femoral, proximal deep femoral or popliteal veins. The veins demonstrate normal color flow, are normally compressible, with normal phasic flow and/or augmentation response. Superficial veins: Unremarkable. No thrombus in the visualized great saphenous vein. Soft tissues: Soft tissue edema. IMPRESSION: Soft tissue edema without evidence of acute DVT. Electronically signed by: Adriana Crowder M.D. 10/02/22 23:30 PM
[2022-10-03] MEDS: PIPERACILLIN/TAZOBACTAM 4.5 GM in DEXTROSE 5% 100 ML IV SCH ×3 (00:38→14:02)
[2022-10-03] MEDS: DULoxetine HCL 60 MG CAP PO SCH (08:45)
[2022-10-03] MEDS: SPIRONOLACTONE 25 MG TAB PO SCH (08:45)
[2022-10-03] MEDS: BUMETANIDE 1 MG in SYRINGE 0 ML IV SCH (08:46)
[2022-10-03] MEDS: DOCUSATE SODIUM 100 MG CAP PO SCH ×2 (08:46→19:57)
[2022-10-03] MEDS: lisinopril 2.5 MG TAB PO SCH (08:46)
[2022-10-03] MEDS: GABAPENTIN 300 MG CAP PO SCH ×2 (08:46→20:10)
[2022-10-03] MEDS: PANTOprazole 40 MG TAB PO SCH (08:46)
[2022-10-03] MEDS: ASPIRIN 81 MG ECTAB PO SCH (08:46)
[2022-10-03] MEDS: METOPROLOL SUCC 50MG EXT REL TAB PO SCH (08:46)
[2022-10-03] MEDS ORDERED: LANTUS PER UNIT CHARGE SQ SCH ×2 (09:00→21:00)
[2022-10-03] MEDS: INSULIN ASPART PER UNIT CHARGE SC SCH ×4 (09:10→19:57)
[2022-10-03 10:26] LABS: Hemoglobin 12.3 g/dl (14.0-18.0); Mean Corpuscular Hemoglobin 28.5 pg (25.0-34.0); Mean Corpuscular Hgb Conc 30.8 g/dL (32.0-36.0); Mean Corpuscular Volume 92.8 fL (80.0-100.0); Mean Platelet Volume 10.8 fL (9.4-12.4); Platelet Count 410 K/uL (130-400); RDW Coefficient of Variation 16.3 % (11.5-14.5); RDW Standard Deviation 55.9 fL (36.4-46.3); Red Blood Count 4.31 M/uL (4.70-6.10); White Blood Count 13.62 K/ul (4.8-10.8)
[2022-10-03 10:52] LABS: Calcium 9.4 mg/dl (8.6-10.3); Creatinine Clr Calc Pharmacy 49.9 ml/min; Est GFR (African American) 50.8 ml/min; Est GFR (Non-African American) 43.8 ml/min; Potassium 4.1 mmol/L (3.5-5.1)
--- NOTE | 2022-10-03 11:22 | Pharmacy Report ---
Pharmacy Glycemic Short Note 2 - Date of Service October 03, 2022 - Glycemic Short BSG Results (Last 24 hours): 10/02/22 10/02/22 10/02/22 12:06 13:43 16:12 Glucose POC Glucose 121 H 171 H 184 H 10/02/22 10/02/22 10/02/22 20:15 20:58 23:47 Glucose POC Glucose 350 H* 302 H* 270 H 10/03/22 10/03/22 07:38 09:32 Glucose 382 H* POC Glucose 234 H OUTPATIENT ANTIDIABETIC REGIMEN: from outpt DM care appt notes, Mar 2022: * Lantus 70 units SQ BID * Novolog ACHS * 30-40 units before breakfast and lunch * 40-60 units before dinner * 10 units w/ bedtime snack if BSGs are high * Jardiance 25mg PO daily * HbA1c: 9.2% (10/02/22) ASSESSMENT: 10/03/22: * Pt became significantly hyperglycemic last evening, likely d/t withholding of basal insulin after hypoglycemic episode. * Lantus was resumed this morning and Novolog parameters have been tightened to better reflect patient's outpt insulin use. * Will continue to follow and titrate regimen as indicated 10/02 * 81 year old with episode of hypoglycemia outpatient, was found with BSGs in the 30s. Unclear per notes how much insulin he took. Patient previously admitted in July. During that time he was only requiring ~30 units-40 units of insulin per day * Fasting BSG this AM 95 mg/dL - no PO intake documented today * Will trial stress of 2 for novolog. Will have conservative scale for basal at HS 0-10 units PLAN FOR INPATIENT GLYCEMIC CONTROL: * Hold outpatient oral diabetes medications * Basal insulin * Lantus 30 units SQ BID * Bolus insulin * NovoLog per scale ACHS or Q6hrs while NPO * Goal Range: Low 110 mg/dL - High 140 mg/dL * Correction Factor: 15 mg/dL/unit * Nutritional / Prandial insulin per carb ratio of 1 unit per 4 grams CHO consumed
[2022-10-03] MEDS ORDERED: GLYCOPYRROLATE 0.2 MG/ML VIAL IV PRN (15:06)
[2022-10-03] MEDS ORDERED: ONDANSETRON INJ 2 MG/ML 2 ML VIAL IV PRN (15:06)
--- NOTE | 2022-10-03 15:06 | Palliative Care Consultation ---
Date of Consultation October 03, 2022 Assessment & Plan (1) Dyspnea: Currently not symptomatic. Morphine ordered prn for air hunger. I discussed use of oxygen for comfort rather than sat with family. They would prefer not to have high flow O2. (2) Acute metabolic encephalopathy: Variable. He is currently not capable of decison making and lacks full insight into his illness. He has talked with family before about not wanting to be readmitted to the hospital and wanting to stay at home until his dying time. (3) Palliative care encounter: I spoke with his daughter, Nikki, on the phone. She tells me that she and her sister, Tanika, are co POAs. They are concerned that staff feels his mental status is normal and they have seen variable levels of confusion and understanding. I did talk with Mr. Goodrich about his illness and he was not able to tell me why he is in the hospital other than for his breathing. I asked him what brings meaning to his life and he told me "nothing". I asked him if he felt he was living well and he told me "no". Nikki and her sister also do not feel that he has good quality of life and would like to support his previously expressed wishes to remain at home. Nikki says that she brought him back to the hospital because he needed symptom management. She works for [facility] home care and hospice and would like him to have hospice care so that focus could be on symptom management and support for him and the family. I think this is a reasonable approach. He is currently on high flow O2, at a level not sustainable at home with 13L. We discussed shifting focus of care in the hospital to comfort and symptom management and Nikki is confident that would be the best course of action to support him. O2 will be used for comfort, rather than to maintain sat. If he is comfortable and stable at lower oxygen flow, they would want to consider taking him home with hospice. Dr. Potter notified. Orders changed for comfort measures per family wishes. History of Present Illness Reason for Consultation: goals of care Requesting Physician: Dr. Potter Attending Physician: Kirill Potter MD History of Present Illness 81 yo gentleman with diabetes, systolic heart failure, CAD and afib. He was hospitalized in July of this year with covid pneumonia. He was discharged to SNF and subsequently left to return home. His daughter tells me that he has been very independent and at times resistant to care. He was admitted on 10/01 with acute respiratory failure, hypothermia and metabolic encephalopathy. He tested positive for covid 19 and is on isolation protocol. He has required high flow oxygen and bipap at times which he has been resistant to at times. He has had diuresis with 2L negative fluid balance. His mental status has been variable at times. I met with him and discussed how he is coping. He has difficulty answering questions and does not seem to have full insight into his illness. Allergies Allergy/AdvReac Type Severity Reaction Status Date / Time No Known Allergies Allergy Verified 08/25/22 21:34 Home Medications Medication Instructions Recorded Confirmed Type aspirin 81 mg tablet,delayed 81 mg PO QAM 06/04/18 08/25/22 History release nitroglycerin 0.4 mg sublingual 0.4 mg sublingual Q5M PRN Chest 02/25/19 08/25/22 History tablet (Nitrostat) Pain cholecalciferol (vitamin D3) 50 4,000 unit PO QAM 04/22/20 08/25/22 History mcg (2,000 unit) capsule blood-glucose meter,continuous #1 ea 11/10/20 08/25/22 History (Dexcom G6 Inspector Circuitry Negative) blood-glucose sensor (Dexcom G6 #3 ea 11/10/20 08/25/22 History Sensor device) blood-glucose transmitter (Dexcom #1 ea 11/10/20 08/25/22 History G6 Transmitter device) blood sugar diagnostic (FreeStyle 12/01/21 08/25/22 History Lite Strips) ketoconazole 2 % topical cream 1 applic topical DAILY PRN Rash 01/04/22 08/25/22 History atorvastatin 80 mg tablet 80 mg PO HS #90 tabs 03/19/22 08/25/22 Rx pantoprazole 20 mg tablet,delayed 20 mg PO QAM #90 tabs 03/19/22 08/25/22 Rx release insulin syringe-needle U-100 1 mL #600 ea 04/07/22 08/25/22 Rx 31 gauge x 5/16" (BD Insulin Syringe Ultra-Fine) docusate sodium 100 mg capsule 100 mg PO BID #0 caps 05/02/22 08/25/22 Rx lisinopril 5 mg tablet 2.5 mg PO QAM #90 tabs 05/02/22 08/25/22 Rx sennosides 8.6 mg tablet (Senokot) 17.2 mg PO HS #0 tabs 05/02/22 08/25/22 Rx spironolactone 25 mg tablet 25 mg PO BID #180 tabs 06/07/22 08/25/22 Rx guaifenesin 600 mg tablet, 1,200 mg PO Q12 #14 tabs 08/05/22 08/25/22 Rx extended release 12 hr (Mucinex) rivaroxaban 15 mg tablet (Xarelto) 15 mg PO QPM 08/15/22 08/25/22 History bumetanide 1 mg tablet 1 mg PO DAILY 08/25/22 08/25/22 History insulin glargine 100 unit/mL (3 See Rx Instructions subcut BID 08/25/22 08/25/22 History mL) subcutaneous pen (Lantus Solostar U-100 Insulin) gabapentin 300 mg capsule 600 mg PO BID #360 caps 09/13/22 Rx duloxetine 60 mg capsule,delayed 60 mg PO QAM #90 caps 09/19/22 Rx release metoprolol succinate 100 mg 100 mg PO QAM #90 tabs 09/19/22 Rx tablet,extended release 24 hr montelukast 10 mg tablet 10 mg PO HS #90 tabs 09/19/22 Rx fenofibrate 54 mg tablet 54 mg PO HS #90 tabs 09/27/22 Rx Patient History Medical History Anxiety Atrial fibrillation Reason for Xarelto Follows with [facility] C4 cervical fracture No surgical intervention. Full ROM. Occurred 2-3 years ago- no current issues CAD (coronary artery disease) S/p RCA PCI in 1991, 1998, and 2004- totaling 5 stents to prox and mid RCA S/p 3 vessel CABG 2008 Cardiomyopathy Carotid artery stenosis, asymptomatic No hemodynamically significant stenosis per 2019 CTA of neck to ICAs bilaterally CHF (congestive heart failure) Chronic kidney disease, stage III (moderate) CKD (chronic kidney disease) COVID-19 DM type 2 (diabetes mellitus, type 2) IDDM Dyslipidemia Dysphagia Occasional (per ) Encephalopathy Enlarged prostate without lower urinary tract symptoms (luts) Gastroparesis GERD (gastroesophageal reflux disease) Well controlled and stable Gross hematuria Hearing deficit KAIBAB History of traumatic brain injury 2018 (after fall down stairs) > subdural hematoma resolved without surgical intervention, no residual issues Hyperlipidemia Hypertension ICD (implantable cardioverter-defibrillator) in place Medtronic. Implanted ~2017 for sustained VT Insomnia LBBB (left bundle branch block) Chronic dating back to at least 07/2019 EKG per charts PAD (peripheral artery disease) H/o of right SFA/TP trunk/PT angioplasty at [facility] (2011) Peripheral neuropathy Permanent atrial fibrillation Physical deconditioning Poor historian Sensorineural hearing loss of both ears Situational depression Sleep apnea Refuses device per records Spinal stenosis Subdural hematoma 2018 (after fall down stairs) > subdural hematoma resolved without surgical intervention, no residual issues 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, with long-term current use of insulin Venous insufficiency Surgical History History of anesthesia reaction Combative with emergence History of back surgery History of cardiac cath Multiple (hx stents) History of cataract surgery R/L History of cholecystectomy History of colonoscopy History of knee replacement Left Hx of angioplasty Hx of CABG CABG x3 (2008) S/P epidural steroid injection S/P ICD (internal cardiac defibrillator) procedure Family History Daughter Family history of reaction to anesthesia PONV Sister Cancer Father Family history of diabetes mellitus Grandmother (Maternal) Family history of diabetes mellitus Other No significant family history Denies family history of Ovarian cancer Prostate cancer Coronary heart disease Breast cancer Colorectal cancer Social History Smoking Status: Never smoker Tobacco Type: Cigarettes Age Started Using Tobacco: 19; Age Quit Using Tobacco: 49; packs per day: 2; Second Hand Exposure: Yes (SPOUSE SMOKES (OUTSIDE)); Hx Alcohol Use: No Hx Substance Use: No Preferred Language: Citizen Of [place] Communication Ability: Effective Visual Impairment: Limited Hearing Ability: Hard of Hearing Forging Press Operator Required: No Beliefs That Will Affect Care: None marital status: Current Living Situation: Alone current occupational status: retired 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 [employer] How many Children do You have: 6 Feels Safe at Home: Yes Childhood Exposure to Second-Hand Smoke: Yes caffeine: No during the past year weight has: remained stable Dental Care, Regularly: Yes Physical Activity Frequency: Does not Exercise Seatbelt Use: never Sunscreen Use: No Assistive Devices: Cane, Walker and Other Review of Systems Review of Systems: ESAS Pain 0/3 Dyspnea 0/3 Nausea 0/3 Drowsinesss 1/3 Anxiety 0/3 Physical Exam Constitutional: no acute distress ENMT: hard of hearing Respiratory: + uses accessory muscles; no respiratory distress Cardiovascular: Rate/Rhythm: + irregularly irregular Gastrointestinal (Abdomen): obese, nontender Skin: warm and dry Neurologic: awake, confused at times Results & Data Vital Signs (Past 12 Hours) Vital Signs Temp Pulse Pulse Resp BP Pulse Ox O2 Del Method 10/03/22 11:16 98.1 F 87 17 177/76 H 95 High Flow Nasal Cannula 10/03/22 08:00 97 H 10/03/22 08:00 High Flow Nasal Cannula 10/03/22 07:41 98.4 F 102 H 18 129/86 90 Nasal Cannula 10/03/22 05:03 98.4 F 101 H 18 112/54 L 93 BiPAP O2 Flow Rate 10/03/22 11:16 15 10/03/22 08:00 10/03/22 08:00 15 10/03/22 07:41 15 10/03/22 05:03 PG Care Time/CCT Total # of Minutes Spent Total Time Spent: 70 Total Time Spent with Patient: Total time spent is greater than 50% in coordination of care (as documented) at patient's floor/unit and/or counseling patient: symptom management, goals of care, hospice, family education and support, coordination of care Coding Level of Care Code 36241 INT INP/OBS CARE 2/55MIN Diagnoses Dyspnea R06.00 Acute metabolic encephalopathy G93.41 Palliative care encounter Z51.5
--- NOTE | 2022-10-03 16:14 | Hospitalist Progress Note ---
Date of Service October 03, 2022 Assessment & Plan (1) Hypoglycemia: Plan: Blood sugar reportedly in the low 30s prior to arrival. Considering accidental insulin overdose of insulin Pharmacy managing glycemic control A1c 9.2 (2) Hypothermia: Plan: Patient hypothermic on arrival - rectal temperature of 33.9. Daughter states that he was clothed and the house was warm when he was found down. Hypothermia may be secondary to patient's severe hypoglycemia vs sepsis. TSH is WNL. Not hypothermic anymore Most likely secondary to hypoglycemia (3) Metabolic encephalopathy: Plan: Resolved Likely secondary to hypoglycemia Patient is still pleasantly confused. Palliative care consulted per family request. Palliative care spoke to the daughter. The final decision is for comfort measures only. All medications discontinued. We will try to titrate O2 down so he can eventually go home with hospice (4) Acute respiratory failure with hypoxia and hypercapnia: Plan: Patient has been weaned off of BiPAP 15 L high flow oxygen Titrate down O2 (5) COVID-19: Plan: Patient was hospitalized at [facility] from 07/25 --> 08/05 with Covid-19. He tests POSITIVE on admission on PCR testing which may remain positive for months after initial infection. Most likely represents persistent positive PCR testing rather than true new Covid infection. However, patient presented with acute hypoxic respiratory failure. Will maintain isolation precautions for now -Covid-isolation -Supplemental O2 as needed Family does not want any treatment (6) Chronic HFrEF (heart failure with reduced ejection fraction): Plan: Patient with history of chronic HFrEF, prior sustained VT s/p ICD placement. Daughter reports patient has been retaining fluid for the last week. CXR with bilateral layering pleural effusions. Uncertain if he is compliant with his home medications -He was treated with Bumex 1 mg IV twice daily Was slightly over diuresed Today he has bumped creatinine and metabolic alkalosis, suggesting intravascular depletion We will hold Bumex Lower extremity edema is much improved but patient still has right lower extremity edema. Venous duplex ultrasound was negative for DVT -Hold spironolactone 25mg po due to increased creatinine -Monitor intake and output -Daily weights (7) Atrial fibrillation: Plan: Chronic. Overall rate controlled. Anticoagulated on Rivaroxaban -All medications discontinued per family wishes of comfort care -Telemetry monitoring (8) DM type 2 (diabetes mellitus, type 2): Plan: With hypoglycemia as above -A1c was 9.2 -Holding insulin for now -Pharmacy glycemic management consultation appreciated -Continue Gabapentin for diabetic neuropathy (9) CAD (coronary artery disease): Plan: Patient with history of CAD s/p CABG x 3V. He follows with Cardiology. Mildly elevated troponin at 27.3. No acute changes on EKG -Trend troponin -Telemetry monitoring -Discontinue ASA, Atorvastatin, Lisinopril, Metoprolol as family wishes comfort care F/E/N -hold Bumex as he is over diuresed Ppx -discontinued rivaroxaban Palliative care spoke to family. Decision was made to switch to comfort care measures only. Family would want to stop all noncomfort medications except for Lasix and insulin which they review as contributing to his comfort. Plan for home hospice once lower oxygen needs. Admission and Anticipated Discharge Date Admission Date: October 01, 2022 Subjective Patient is sitting on bedside recliner. Does not seem to be in any distress. No chest pain or shortness of breath. Review of Systems Review of Systems: All systems reviewed & are unremarkable except as noted in Subjective Physical Exam Physical Exam: General: Awake, conversant but may be slightly confused Heart: S1, S2/regular rate and rhythm, no murmur rubs or gallops Lungs: Diminished breath sounds bilaterally. Normal effort Abdomen: Soft/nontender/nondistended. No hepatosplenomegaly Extremities: No clubbing/cyanosis. Right lower extremity edema Behavior: Appropriate, cooperative Results & Data Results & Data Vital Signs (Past 12 Hours) Vital Signs Temp Pulse Pulse Resp BP Pulse Ox O2 Del Method 10/03/22 11:16 36.7 C 87 17 177/76 H 95 High Flow Nasal Cannula 10/03/22 08:00 97 H 10/03/22 08:00 High Flow Nasal Cannula 10/03/22 07:41 36.9 C 102 H 18 129/86 90 Nasal Cannula 10/03/22 05:03 36.9 C 101 H 18 112/54 L 93 BiPAP O2 Flow Rate 10/03/22 11:16 15 10/03/22 08:00 10/03/22 08:00 15 10/03/22 07:41 15 10/03/22 05:03 PG Care Time/CCT Total # of Minutes Spent Total Time Spent with Patient: Total time spent is greater than 50% in coordination of care (as documented) at patient's floor/unit and/or counseling patient: Coding Level of Care Code 46014 SUB INP/OBS CARE 235MIN Diagnoses Hypoglycemia E16.2 Hypothermia T68.XXXA Encounter type: initial encounter Metabolic encephalopathy G93.41 Acute respiratory failure with hypoxia and hypercapnia J96.01; J96.02 COVID-19 U07.1 Chronic HFrEF (heart failure with reduced ejection fraction) I50.22 Atrial fibrillation I48.11 Atrial fibrillation type: longstanding persistent DM type 2 (diabetes mellitus, type 2) E11.9 CAD (coronary artery disease) I25.10 (2) Hypothermia Encounter type: initial encounter Qualified Code(s): T68.XXXA - Hypothermia, initial encounter (7) Atrial fibrillation Atrial fibrillation type: longstanding persistent Qualified Code(s): I48.11 - Longstanding persistent atrial fibrillation
[2022-10-03] MEDS: MoRPHine SULFATE 2 MG/ML CARP IV PRN ×2 (18:30→22:14)
[2022-10-03] MEDS: SENNA 8.6 MG TAB PO SCH (19:57)
[2022-10-03] MEDS: LORazepam 2 MG/1 ML VIAL IV PRN (20:10)
[2022-10-04] MEDS: MoRPHine SULFATE 2 MG/ML CARP IV PRN ×2 (02:24→16:29)
[2022-10-04] MEDS: LORazepam 2 MG/1 ML VIAL IV PRN ×2 (03:44→15:51)
[2022-10-04] MEDS: INSULIN ASPART PER UNIT CHARGE SC SCH ×3 (07:48→15:05)
[2022-10-04] MEDS ORDERED: LANTUS PER UNIT CHARGE SQ SCH (09:00)
[2022-10-04] MEDS ORDERED: LANTUS PER UNIT CHARGE SQ ONE (09:41)
[2022-10-04] MEDS ORDERED: INSULIN ASPART PER UNIT CHARGE SC ONE (09:41)
[2022-10-04] MEDS: DULoxetine HCL 60 MG CAP PO SCH (10:52)
[2022-10-04] MEDS: DOCUSATE SODIUM 100 MG CAP PO SCH (10:52)
[2022-10-04] MEDS: GABAPENTIN 300 MG CAP PO SCH (10:52)
[2022-10-04] MEDS ORDERED: OLANZapine ZYDIS 5 MG ORALLY DIS. TAB PO PRN (13:45)
--- NOTE | 2022-10-04 14:11 | Palliative Care Progress Note ---
Date of Service October 04, 2022 Assessment & Plan (1) Dyspnea: Plan: Will change morphine to routine dosing for more consistent relief. Roxanol ordered for more sustained relief and in preparation for discharge. Continue IV morphine as needed if roxanol ineffective. (2) Delirium: Plan: Mild May be hospital delirium but may also be related to uncontrolled symptoms or medications Monitor with change in opioid dosing Add prn zyprexa Discussed with RN (3) Palliative care encounter: Plan: I spoke with his daughter, Nikki. Family all in agreement with focus on comfort and symptom management. They are not able to manage 24/7 care for him at home and have reached out to [facility] for possible placement there. They would want him to have hospice care at [facility]. I notified case management. Admission and Anticipated Discharge Date Admission Date: October 01, 2022 Subjective Restless. Speaking, but not intelligibly. Facial grimace at times. Does not answer when asked about pain or breathing. He has had prn IV morphine x3 for respiratory distress Review of Systems Review of Systems: Unobtainable due to cognitive status Physical Exam Constitutional: + uncomfortable ENMT: Mouth: + dry oral mucous membranes Respiratory: no respiratory distress and no labored breathing Cardiovascular: Rate/Rhythm: + irregularly irregular Neurologic: Speech / Cognition: + abnormal cognition PG Care Time/CCT Total # of Minutes Spent Total Time Spent: 40 Total Time Spent with Patient: Total time spent is greater than 50% in coordination of care (as documented) at patient's floor/unit and/or counseling patient: symptom management, family education and support, coordination of care Coding Level of Care Code 36986 SUB INP/OBS CARE 2/35MIN Diagnoses Dyspnea R06.00 Delirium R41.0 Palliative care encounter Z51.5
[2022-10-04] MEDS: MoRPHine SULFATE 10 MG/0.5 ML UDP PO SCH ×2 (14:13→21:23)
--- NOTE | 2022-10-04 15:51 | Hospitalist Progress Note ---
Date of Service October 04, 2022 Assessment & Plan (1) Acute respiratory failure with hypoxia and hypercapnia: Plan: 2nd to decompensated CHF +/- recurrent COVID-19 infection +/- other factors had been on BIPAP, now NC O2 remains on comfort care pathway (2) Hypoglycemia: Plan: present on admission (3) Hypothermia: Plan: present on admission 2nd hypoglycemia? 2nd sepsis? (4) Metabolic encephalopathy: Plan: likely multifactorial (5) COVID-19: Plan: Patient was hospitalized at [facility] from 07/25 --> 08/05 with Covid-19. Uncertain if + test this admission was 2nd to old infection or a recurrent infection. (6) Chronic HFrEF (heart failure with reduced ejection fraction): Plan: acute/chronic systolic CHF (7) Atrial fibrillation: Plan: permanent, chronic (8) DM type 2 (diabetes mellitus, type 2): (9) CAD (coronary artery disease): Plan: Patient with history of CAD s/p CABG (10) Cardiomyopathy: (11) PAD (peripheral artery disease): (12) Paroxysmal ventricular tachycardia: (13) Presence of single chamber implantable cardioverter-defibrillator (ICD): (14) Chronic kidney disease, stage III (moderate): Plan continue comfort care pathway med adjustments by palliative care appreciated daughter updated by phone this evening Admission and Anticipated Discharge Date Admission Date: October 01, 2022 Subjective palliative care recommendations noted patient restless throughout the visit asked if any pain - in garbled speech he says "my mouth" then quickly falls back asleep Review of Systems Review of Systems: Unobtainable due to cognitive status and Unobtainable due to reduced consciousness Physical Exam Physical Exam: gen - uncomfortable, tachypneic, lethargic/altered mouth - MM severely dry heart - tachy, irregular, s1 s2 lungs - course BS b/l, increased work of breathing abd - soft NT ext - cool, mild edema present psych - lethargic PG Care Time/CCT Total # of Minutes Spent Total Time Spent with Patient: Total time spent is greater than 50% in coordination of care (as documented) at patient's floor/unit and/or counseling patient: Coding Level of Care Code None Diagnoses Acute respiratory failure with hypoxia and hypercapnia J96.01; J96.02 Hypoglycemia E16.2 Hypothermia T68.XXXA Encounter type: initial encounter Metabolic encephalopathy G93.41 COVID-19 U07.1 Chronic HFrEF (heart failure with reduced ejection fraction) I50.22 Atrial fibrillation I48.11 Atrial fibrillation type: longstanding persistent DM type 2 (diabetes mellitus, type 2) E11.9 CAD (coronary artery disease) I25.10 Cardiomyopathy I42.9 Cardiomyopathy type: unspecified PAD (peripheral artery disease) I73.9 Paroxysmal ventricular tachycardia I47.2 Presence of single chamber implantable cardioverter-defibrillator (ICD) Z95.810 Chronic kidney disease, stage III (moderate) N18.3 (3) Hypothermia Encounter type: initial encounter Qualified Code(s): T68.XXXA - Hypothermia, initial encounter (7) Atrial fibrillation Atrial fibrillation type: longstanding persistent Qualified Code(s): I48.11 - Longstanding persistent atrial fibrillation (10) Cardiomyopathy Cardiomyopathy type: unspecified Qualified Code(s): I42.9 - Cardiomyopathy, unspecified
--- NOTE | 2022-10-04 22:42 | Death Pronouncement Note ---
Date of Service October 04, 2022 Pronouncement Note Admission Date Admission Date: October 01, 2022 Date and Time of Date of : 09/06/22 Time of : 22:10 PCOD Preliminary cause of : Acute respiratory failure with hypoxia and hypercapnia Contributing Factors (1) Acute respiratory failure with hypoxia and hypercapnia: (2) Hypoglycemia: (3) Hypothermia: (4) Metabolic encephalopathy: (5) COVID-19: (6) Chronic HFrEF (heart failure with reduced ejection fraction): (7) Atrial fibrillation: (8) DM type 2 (diabetes mellitus, type 2): (9) CAD (coronary artery disease): Additional Data Confirmation of : no pulse, no respirations, no heart sounds and pupils fixed and dilated Family: contacted Attending/PCP notified?: Yes Attending physician: Mario Alberto Yi Resident Activity Tracking Resident Involvement: Resident Care Provided Care Provided: Adult Hospital Medicine
--- NOTE | 2022-10-04 22:47 | Communication Note ---
Date of Service: October 04, 2022 I was called to pronounce the of Wilber Vogel ( 1940) by nurse Daphne Palacio on 10/04/2022. Upon entering the room, patient was found to be in a terminal state. They were unresponsive to, and did not withdraw from verbal or tactile stimuli. They were unresponsive to corneal, pupillary, and oculocephalic reflexes. On cardiopulmonary exam, they were found to be without detectable carotid pulses, and without spontaneous heart tones or respirations. Time of was pronounced by me on 10/04/2022 at 2210. Attending physician was notified. Next of kin was notified by nurse Daphne Palacio. Resident Activity Tracking Resident Involvement: Resident Care Provided Care Provided: Adult Hospital Medicine
--- NOTE | 2022-10-05 22:06 | Discharge Summary ---
Date of Service Admission Date October 01, 2022 Date and Time of Date of : 09/06/22 Time of : 22:10 Admission HPI Per Admitting Provider Wilber Vogel is an 81yo male with multiple medical comorbidities presenting from home after being found down by his daughter. Patient was hospitalized at [facility] from 07/25/22 - 08/05/22 with Covid-19 infection. He was subsequently discharged to [facility]. Patient signed himself out of [facility] on 08/25/22 and has been living home alone. He is but is currently estranged from his due to his occasionally erratic behavior and threats. He has family that lives close by that check on him regularly. Per daughter, patient is non-adherent to his medications, she is uncertain what he takes and when. He eats a lot of junk food and at times does not eat at all. He ambulates with a rolling walker but falls frequently and has various bruises and scrapes scattered across his body from prior falls. Patient's daughter reports that over the last week he has been "filling up with fluid". He has been more short of breath. Patient has had episodes of increased confusion this week as well. His daughter states that on 09/28/22 he was speaking about how his parents were helping him manage his Dexcom. The next day, 09/29/22 his daughter states that he was acting very delirious - speaking about the and reaching for stuff in the air. Daughter also reports that patient has been having low blood sugars this week. She has noticed that his Dexcom is not correlating with fingersticks. For example, earlier in the week patient's Dexcom alerted that his blood sugar was at 78. When his daughter checked patient's fingerstick it was 34. Patient was last seen normal by his daughter last night around 21:00. She lives across the street and noted that his living room light and TV went off around 23:30. Daughter checked on patient this afternoon around 15:00 and he was found down. He was awake but confused, diaphoretic. His blood sugar was low in the 30's. Daughter gave him two glucose tabs, orange juice with two spoonfuls of sugar in it and part of a sticky roll. She called EMS and the fire department to come assist with getting him off the floor. Patient's blood sugar reported to be 34 even after receiving all the sugar described above. Patient was given 250mL of D10 by EMS with repeat blood sugar of 177. Patient became less responsive in the field and was transported to [facility] ED. In the ER patient to be hypothermic with temperature of 33.9 rectal. He is hypoxic with saturations in the 70's. He was placed on a non-rebreather with improvement in saturations to the 90's. VBG was obtained which revealed respiratory acidosis 02/02/87 therefore patient was initiated on BiPAP. Patient wakes with verbal stimulation. Is able to answer YES and NO questions but then falls back to sleep. He does not recall the events prior to arrival. He currently denies chest pain and shortness of breath. No reported ICD firing. ER Course: BiPAP Warming blanket Discharge Data Allergies Allergy/AdvReac Type Severity Reaction Status Date / Time No Known Allergies Allergy Verified 08/25/22 21:34 Consultations 10/01/22 19:18 ED Decision to Admit Stat 10/03/22 12:01 Consult Palliative Care Routine 10/03/22 15:06 Consult Palliative Care Routine Ordered Studies 10/01/22 17:23 CT cervical spine wo con Stat CT head/brain wo con Stat 10/02/22 15:03 US venous doppler LE RT Stat Discharge Plan Discharge Items Patient Disposition: Other Date/Time: 10/04/22 22:10 Coding Diagnoses
== END 2022-10-05 01:29 | disposition expired | DRG 637 ==
LOC: ED 16:52 → SUATTDRO 20:28 → 2S 20:28